=== PATIENT | female | born 1945 | race Caucasian/White ===

== ENCOUNTER 2017-08-24 17:31 | Outpatient (RCR) | payer MEDICARE, OTHER, SELFPAY | END 2017-08-31 23:59 | LOC: DC 17:31 | PROVIDERS: Family Provider Nurse Practitioner; PCP Nurse Practitioner; Visit Provider Nurse Practitioner Family | DX: E11.9 Type 2 diabetes mellitus without complications (principal); E66.9 Obesity, unspecified; Z68.43 Body mass index [BMI] 50.0-59.9, adult; M51.36 Other intervertebral disc degeneration, lumbar region; Z71.3 Dietary counseling and surveillance | CPT/HCPCS: G0109 ==

== ENCOUNTER 2017-10-17 07:43 | Day surgery (SDC) | payer MEDICARE, OTHER, SELFPAY ==
[2017-10-17 08:10] VITALS: BP 112/50; PULSE 72; RESP 16; TEMP 36.6; O2SAT 98; BMI 57.7
[2017-10-17 08:35] LABS: Bedside Glucose 102 mg/dL (70-110)
--- NOTE | 2017-10-17 09:35 | RAD_ITS ---
PROCEDURE: Right L3-S1 facet joint block. DATE OF EXAMINATION: October 17, 2017. INDICATION: Female, 72 years old. Chronic low back pain. FLUOROSCOPY TIME (if supplied): (0:14) minutes/seconds Intraoperative imaging provided for right L3-S1 facet joint block. RAD/L/S Spine Min 4 Views IMPRESSION: Imaging provided for right L3-S1 facet joint block. Electronically Signed: Toñito Castellanos MD at 11:32 EDT Tel [phone], Service support ,
[2017-10-17] MEDS: MethylPREDNISolone Acetate 80 MG/ML Vial (09:41)
[2017-10-17] MEDS: Bupivacaine 0.25% 30 ML Vial (09:42)
[2017-10-17 09:50] VITALS: BP 105/54; BP 112/50; PULSE 69; RESP 16; TEMP 36.8; O2SAT 92
[2017-10-17 09:55] VITALS: BP 112/50; BP 98/41; PULSE 67; RESP 16; O2SAT 98
[2017-10-17 10:00] VITALS: BP 112/50; BP 99/54; PULSE 65; RESP 16; O2SAT 98
[2017-10-17 10:05] VITALS: BP 112/50; BP 115/51; PULSE 66; RESP 16; TEMP 36.6; O2SAT 96
[2017-10-17 10:24] VITALS: BP 112/50
--- NOTE | 2017-10-17 10:41 | OP.PCM_ITS ---
Problem List (1) Degeneration of intervertebral disc of lumbosacral region Status: Chronic (2) Lumbar facet arthropathy Status: Chronic (3) Lumbosacral spondylosis Status: Chronic Report of Operation Date of Procedure: 10/17/17 Pre-Operative Diagnosis: Lumbosacral spondylosis, lumbosacral degenerative disc disease, lumbar facet arthropathy Post-Operative Diagnosis: Lumbosacral spondylosis, lumbosacral degenerative disc disease, lumbar facet arthropathy Surgery/Procedure Performed:: Right-sided lumbar facet steroid injection L3, L4 , L5, S1 Description of Surgical Findings:: PROCEDURE: Right-sided lumbar facet steroid injection L3, L4, L5, S1 PREOPERATIVE DIAGNOSIS: Lumbosacral spondylosis, lumbosacral degenerative disc disease, and lumbar facet arthropathy POSTOPERATIVE DIAGNOSIS: Lumbosacral spondylosis, lumbosacral degenerative disc disease, and lumbar facet arthropathy ANESTHESIA: MAC COMPLICATIONS: None BLOOD LOSS: Minimal PROCEDURE IN DETAIL: History and physical today was reviewed. Risks and benefits of the procedure were explained. The patient understood, agreed to our procedure, and informed consent was obtained. IV inserted per routine protocol. The patient was taken to the operating room, placed in a prone position with a pillow positioned underneath the abdomen. The right side of his lower back was prepped and draped in a sterile fashion using iodine x3. Under fluoroscopy guidance, on AP view, L3 through S1 vertebral bodies were visualized. Skin and subcutaneous tissues were anesthetized with approximately 5 mL of 1% lidocaine using a 25-gauge regular needle. Under direct visualization with fluoroscopy at approximately 25-degree angle, starting on the right L3, ending on the right S1, passing through the L4-L5 using a 22-gauge 3 1/2-inch spinal needle, the needle was advanced via the skin. The tip of the needle was maneuvered and directed towards the superior and medial gutter of the transverse process at the vicinity of the medial branch. Once the tip of the needle was in contact with the bone, the needle pulled approximately 2 mm off the bone. After negative aspiration of blood with CSF and confirmation of AP as well as oblique view, a total of 8 mL of preservative-free 0.25% Marcaine with 80 mg of Depo- Medrol was injection in divided doses between those 4 levels. The needles were then removed intact. The patient experienced no signs or symptoms intrathecal, intravascular injection. The patient experienced no paraesthesia. The procedure was completed without any apparent difficult, any complication. The patient appeared to tolerate well. ASSESSMENT AND PLAN: This is a 72-year-old female with lumbosacral spondylosis, lumbosacral degenerative disc disease and lumbar facet arthropathy, status post right-sided lumbar facet steroid injection L3 through S1. The patient will continue her current medications. The patient will follow in approximately 2 weeks for possible repeat of the procedure if indicated.
== END 2017-10-17 10:26 | disposition home or self-care (01) ==
LOC: SDC 07:44 → AC 07:49
PROVIDERS: Family Provider Nurse Practitioner; PCP Nurse Practitioner; Visit Provider Anesthesiology Pain Medicine
PROC: 3E0T3BZ Introduction of Anesthetic Agent into Peripheral Nerves and Plexi, Percutaneous Approach (ICD-10-PCS; CPT 64493; principal; 2017-10-17 10:00)
DX: M51.37 Other intervertebral disc degeneration, lumbosacral region (principal); M47.897 Other spondylosis, lumbosacral region; M46.86 Other specified inflammatory spondylopathies, lumbar region; I10 Essential (primary) hypertension; I50.9 Heart failure, unspecified; E78.00 Pure hypercholesterolemia, unspecified; E78.5 Hyperlipidemia, unspecified; E11.9 Type 2 diabetes mellitus without complications; Z79.84 Long term (current) use of oral hypoglycemic drugs; F32.9 Major depressive disorder, single episode, unspecified; E66.01 Morbid (severe) obesity due to excess calories; Z68.43 Body mass index [BMI] 50.0-59.9, adult; Z79.891 Long term (current) use of opiate analgesic; Z79.899 Other long term (current) drug therapy; Z86.711 Personal history of pulmonary embolism; Z85.3 Personal history of malignant neoplasm of breast
CPT/HCPCS: 64493; 64494; 64495; 64483; 72110; 82962; J7120

== ENCOUNTER → 2018-02-06 14:53 | Outpatient (CLI) | payer MEDICARE, OTHER, SELFPAY ==
[2018-02-06 17:37] LABS: Hematocrit 31.8 % (37-47); Hemoglobin 9.8 g/dl (12.0-15.0); Mean Corp Hgb Conc 30.8 g/gl (32-36); Mean Corpuscular Hgb 28.8 pg (27.0-32.0); Mean Corpuscular Volume 93.5 fL (81-99); Mean Platelet Vol. 9.2 fl (6.2-12.0); Platelet Count 103 K/mm3 (150-450); RBC Distribution Width CV 16.2 % (11.6-14.6); RBC Distribution Width SD 53.7 fl (35.1-43.9); White Blood Count 4.1 K/mm3 (4.4-11.0)
[2018-02-06 17:45] LABS: Scan Indicated on CBC? Y/N NO
[2018-02-06 17:54] LABS: ALB/GLOB Ratio 0.7 RATIO (0.9-2.4); AST(SGOT) 34 U/L (15-37); Alanine Aminotransfer ALT/SGPT 27 U/L (13-56); Albumin, Serum 3.2 g/dL (3.2-5.0); Alkaline Phosphatase 88 U/L (45-117); Anion Gap 10 (5-15); BUN 19 mg/dL (7-18); BUN/Creat Ratio 22.2 RATIO (10-20); Calcium,Total 9.3 mg/dL (8.5-10.1); Chloride 107 mmol/L (98-107); Creatinine, Serum 0.86 mg/dL (0.55-1.02); EST Glomerular Filtration Rate 69 mL/min (>60); Est Glom Filt Rate - Afr Amer 84 mL/min (>60); Globulin 4.4 g/dL (2.2-4.2); Glucose 65 mg/dL (74-106); Iron 46 ug/dL (50-170); Potassium 4.3 mmol/L (3.5-5.1); Protein, Total 7.6 g/dL (6.4-8.2); Sodium Level 145 mmol/L (136-145)
[2018-02-08 10:04] LABS: AFP, Tumor Marker 4.2 ng/mL (0.0-8.3)
== END ==
PROVIDERS: Family Provider Nurse Practitioner; PCP Nurse Practitioner; Visit Provider Internal Medicine Gastroenterology
DX: K74.60 Unspecified cirrhosis of liver (principal); D64.9 Anemia, unspecified
CPT/HCPCS: 36415; 80053; 82105; 83540; 85027

== ENCOUNTER 2018-03-20 08:41 | Day surgery (SDC) | payer MEDICARE, OTHER, SELFPAY ==
[2018-03-20 08:59] VITALS: BP 109/58; PULSE 65; RESP 16; TEMP 35.7; O2SAT 99; BMI 58.5
[2018-03-20 09:25] LABS: Bedside Glucose 92 mg/dL (70-110)
[2018-03-20] MEDS: Bupivacaine 0.25% 30 ML Vial (09:37)
[2018-03-20] MEDS: MethylPREDNISolone Acetate 80 MG/ML Vial (09:37)
[2018-03-20 09:45] VITALS: BP 109/58; BP 130/67; PULSE 61; RESP 20; TEMP 36.6; O2SAT 98
[2018-03-20 09:50] VITALS: BP 109/58; BP 94/44; PULSE 63; RESP 18; O2SAT 95
[2018-03-20 09:55] VITALS: BP 104/53; BP 109/58; PULSE 59; RESP 18; O2SAT 95
[2018-03-20 10:00] VITALS: BP 105/49; BP 109/58; PULSE 59; RESP 18; TEMP 36.8; O2SAT 95
[2018-03-20 10:10] VITALS: BP 109/58
--- NOTE | 2018-03-20 11:26 | PCM.OPRPT ---
Problem List (1) Degeneration of intervertebral disc of lumbosacral region Status: Chronic (2) Lumbar facet arthropathy Status: Chronic (3) Lumbosacral spondylosis Status: Chronic Report of Operation Date of Procedure: 03/20/18 Pre-Operative Diagnosis: Lumbosacral spondylosis, lumbosacral degenerative disc disease, lumbar facet arthropathy Post-Operative Diagnosis: Lumbosacral spondylosis, lumbosacral degenerative disc disease, lumbar facet arthropathy Surgery/Procedure Performed:: Left-sided lumbar facet steroid injection L3, L4, L5, S1 Description of Surgical Findings:: PROCEDURE: Left-sided lumbar facet steroid injection L3, L4, L5, S1 PREOPERATIVE DIAGNOSIS: Lumbosacral spondylosis, lumbosacral degenerative disc disease, lumbar facet arthropathy POSTOPERATIVE DIAGNOSIS: Lumbosacral spondylosis, lumbosacral degenerative disc disease, lumbar facet arthropathy ANESTHESIA: MAC COMPLICATIONS: None BLOOD LOSS: Minimal PROCEDURE IN DETAIL: History and physical today was reviewed. Risks and benefits of the procedure were explained. The patient understood, agreed to our procedure, and informed consent was obtained. IV inserted per routine protocol. The patient was taken to the operating room, placed in a prone position with a pillow positioned underneath the abdomen. The left side of her lower back was prepped and draped in a sterile fashion using iodine x3. Under fluoroscopy guidance, on AP view, L3 through S1 vertebral bodies were visualized. Skin and subcutaneous tissues were anesthetized with approximately 5 mL of 1% lidocaine using a 25-gauge regular needle. Under direct visualization with fluoroscopy at approximately 25-degree angle, starting on the left L3, ending on the left S1, passing through the L4-L5 using a 22-gauge 5-inch spinal needle, the needle was advanced via the skin. The tip of the needle was maneuvered and directed towards the superior and medial gutter of the transverse process at the vicinity of the medial branch. Once the tip of the needle was in contact with the bone, the needle pulled approximately 2 mm off the bone. After negative aspiration of blood with CSF and confirmation of AP as well as oblique view, a total of 8 mL of preservative-free 0.25% Marcaine with 80 mg of Depo-Medrol was injection in divided doses between those 4 levels. The needles were then removed intact. The patient experienced no signs or symptoms intrathecal, intravascular injection. The patient experienced no paraesthesia. The procedure was completed without any apparent difficult, any complication. The patient appeared to tolerate well. ASSESSMENT AND PLAN: This is a 64-year-old Female with Lumbosacral spondylosis, lumbosacral degenerative disc disease, lumbar facet arthropathy, status post left-sided lumbar facet steroid injection [id number] S1. The patient will continue his current medications. The patient will follow in approximately 2 weeks for possible repeat of the procedure if indicated.
== END 2018-03-20 10:25 | disposition home or self-care (01) ==
LOC: SDC 08:41 → AC 09:00
PROVIDERS: Family Provider Nurse Practitioner; PCP Nurse Practitioner; Visit Provider Anesthesiology Pain Medicine
PROC: 3E0T3BZ Introduction of Anesthetic Agent into Peripheral Nerves and Plexi, Percutaneous Approach (ICD-10-PCS; CPT 64493; principal; 2018-03-20 09:25)
DX: M47.27 Other spondylosis with radiculopathy, lumbosacral region (principal); M51.37 Other intervertebral disc degeneration, lumbosacral region; M46.96 Unspecified inflammatory spondylopathy, lumbar region; M51.36 Other intervertebral disc degeneration, lumbar region; M43.16 Spondylolisthesis, lumbar region; K21.9 Gastro-esophageal reflux disease without esophagitis; I10 Essential (primary) hypertension; M10.9 Gout, unspecified; E11.9 Type 2 diabetes mellitus without complications; E66.01 Morbid (severe) obesity due to excess calories; Z68.43 Body mass index [BMI] 50.0-59.9, adult; E78.00 Pure hypercholesterolemia, unspecified; F32.9 Major depressive disorder, single episode, unspecified; K74.0 Hepatic fibrosis; N28.1 Cyst of kidney, acquired; E06.9 Thyroiditis, unspecified; M06.9 Rheumatoid arthritis, unspecified; Z86.711 Personal history of pulmonary embolism; Z78.0 Asymptomatic menopausal state; Z79.84 Long term (current) use of oral hypoglycemic drugs; Z79.891 Long term (current) use of opiate analgesic; Z79.899 Other long term (current) drug therapy
CPT/HCPCS: 64493; 64494; 64495; 64483; 72100; 82962; J7120

== ENCOUNTER → 2018-04-19 15:34 | Outpatient (CLI) | payer MEDICARE, OTHER, SELFPAY ==
--- NOTE | 2018-04-19 15:39 | RAD_ITS ---
STUDY: X-RAY - PELVIS REASON FOR EXAM: Female, 72 years old. Inflammatory polyarthropathy. TECHNIQUE: One view of the pelvis was obtained. COMPARISON: None. FINDINGS: There is a non-specific bowel gas pattern. Normal visualized soft tissue structures. Normal bilateral iliac wings, sacroiliac joints and visualized sacrum. Normal visualized bilateral superior and inferior pubic rami. Normal pubic symphysis. Normal ischial tuberosities. Normal visualized right femoral head. Normal right acetabulum. Normal right hip joint. Normal visualized left femoral head. Normal left acetabulum. Normal left hip joint. RAD/Pelvis 1 or 2 Views IMPRESSION: No definite abnormality. Electronically Signed: David Gonzalez MD at 15:27 EDT , Service support ,
[2018-04-19 18:01] LABS: Absolute Lymphocyte Count 1.12 X10^3/ul (0.83-4.51); Absolute Neutrophil Count 2.2 X10^3/uL (2.0-7.7); Basophil# 0.03 X10^3/uL; Basophil% 0.8 % (0-1); Eosinophil# 0.24 X10^3/uL; Eosinophils% 6.3 % (0-5); Hematocrit 38.3 % (37-47); Hemoglobin 12.4 g/dl (12.0-15.0); Lymphocyte # 1.12 X10^3/ul (4.0); Lymphocyte % 29.2 % (19-41); Mean Corp Hgb Conc 32.4 g/gl (32-36); Mean Corpuscular Hgb 31.9 pg (27.0-32.0); Mean Corpuscular Volume 98.5 fL (81-99); Mean Platelet Vol. 9.3 fl (6.2-12.0); Monocyte# 0.24 X10^3/uL; Monocyte% 6.3 % (0-10); Neutrophil % 57.4 % (47-70); Platelet Count 94 K/mm3 (150-450); RBC Distribution Width CV 15.2 % (11.6-14.6); RBC Distribution Width SD 53.4 fl (35.1-43.9); Red Blood Count 3.89 M/mm3 (4.2-5.4); White Blood Count 3.8 K/mm3 (4.4-11.0)
[2018-04-19 18:03] LABS: POSITIVE COUNT NO; POSITIVE DIFFERENTIAL NO; POSITIVE MORPHOLOGY NO
[2018-04-19 18:26] LABS: ALB/GLOB Ratio 0.8 RATIO (0.9-2.4); AST(SGOT) 43 U/L (15-37); Alanine Aminotransfer ALT/SGPT 28 U/L (13-56); Albumin, Serum 3.2 g/dL (3.2-5.0); Alkaline Phosphatase 109 U/L (45-117); Anion Gap 11 (5-15); BUN 12 mg/dL (7-18); BUN/Creat Ratio 13.8 RATIO (10-20); CRP 3.33 mg/L (0.0-3.0); Calcium,Total 9.5 mg/dL (8.5-10.1); Chloride 104 mmol/L (98-107); Creatinine, Serum 0.87 mg/dL (0.55-1.02); EST Glomerular Filtration Rate 68 mL/min (>60); Est Glom Filt Rate - Afr Amer 82 mL/min (>60); Globulin 4.2 g/dL (2.2-4.2); Glucose 145 mg/dL (74-106); Potassium 3.7 mmol/L (3.5-5.1); Protein, Total 7.4 g/dL (6.4-8.2); Rheumatoid Factor < 10.0 IU/mL (<15); Sodium Level 139 mmol/L (136-145)
[2018-04-19 18:45] LABS: Erythrocyte Sedimentation Rate 46 mm/hr (0-30)
[2018-04-21 14:07] LABS: SJOGREN'S Anti-SS-A test < 0.2 AI (0.0-0.9); SJOGREN'S Anti-SS-B test < 0.2 AI (0.0-0.9)
[2018-04-24 11:08] LABS: ANTINUCLEAR ANTIBODIES DIRECT Negative (Negative)
[2018-04-26 14:11] LABS: CCP IgG Antibodies 11 units (0-19); HEPATITIS B SURFACE AG Negative (Negative); HLA B27 Negative (.); Hep B Surface Antibodies Non Reactive (.); Hep C Antibodies <0.1 s/co ratio (0.0-0.9)
== END ==
PROVIDERS: Family Provider Nurse Practitioner; PCP Nurse Practitioner; Visit Provider Internal Medicine Rheumatology
DX: M06.4 Inflammatory polyarthropathy (principal); M79.7 Fibromyalgia; M51.37 Other intervertebral disc degeneration, lumbosacral region; M21.40 Flat foot [pes planus] (acquired), unspecified foot; K21.9 Gastro-esophageal reflux disease without esophagitis; I10 Essential (primary) hypertension; E11.9 Type 2 diabetes mellitus without complications; F41.9 Anxiety disorder, unspecified; N39.46 Mixed incontinence; Z85.3 Personal history of malignant neoplasm of breast
CPT/HCPCS: 36415; 72170; 80053; 81374; 85025; 85652; 86038; 86140; 86200; 86235; 86431; 86706; 86803; 87340

== ENCOUNTER → 2018-07-04 12:03 | Outpatient (CLI) | payer MEDICARE, OTHER, SELFPAY ==
--- NOTE | 2018-07-04 12:10 | CT_ITS ---
STUDY: CT ABDOMEN WITH AND WITHOUT CONTRAST REASON FOR EXAM: Female, 72 years old. History of nonalcoholic cirrhosis. Fatty liver. History of right breast cancer with lumpectomy and radiation treatment. RADIATION DOSAGE (If Supplied By Facility): CTDIvol = ( 25.35 ) mGy, DLP = ( 2097.71 ) mGycm TECHNIQUE: Transaxial images were obtained pre and post I.V. administration of 100 ml of Isovue 300, and with oral contrast. Sagittal and coronal images were reconstructed. Individualized dose optimization techniques were used for this CT. COMPARISON: None. FINDINGS: Minimal increased markings at the lung bases worse on the right side suggestive of basilar atelectasis and/or scarring. Coronary artery calcification. Normal liver. There are surgical clips in the gallbladder fossa consistent with a prior cholecystectomy. Mild splenomegaly. Varicosities are seen in the region of the splenic hilum suggestive of a venous collateral circulation. The portal vein is patent. It is not distended. Normal pancreas. There is a small, circumscribed, smooth, low attenuation right adrenal mass, consistent with an adrenal adenoma. This measures 2.5 cm x 1.6 cm. Normal left adrenal gland. There is a 3.5 cm x 5 cm cyst in the medial inferior aspect of the right kidney. Normal left kidney. There is a small hiatal hernia. Normal small intestine. Normal colon. The appendix is visualized and appears normal. There is diffuse atherosclerotic calcification of the abdominal aorta, without a demonstrated aneurysm. Normal inferior vena cava. Normal retroperitoneum. Normal abdominal wall. Disc space narrowing and degeneration at the L4-L5 level. Grade 1 anterior listhesis of L4 on L5 without spondylolysis. CT/Abdomen W/WO IV Contrast IMPRESSION: Mild splenomegaly. There is evidence of varicosities in the splenic hilum. Electronically Signed: Toñito Castellanos MD at 10:39 EST Tel [phone], Service support ,
[2018-07-04] MEDS: DiphenhydrAMINE 50 MG/ML Syringe 25 MG IV (12:42)
[2018-07-04 12:48] VITALS: BP 123/41; PULSE 65; RESP 18; O2SAT 97; BMI 75.2
[2018-07-04 12:56] LABS: CREATININE FINGERSTICK 1.2 mg/dL (0.55-1.02)
== END ==
PROVIDERS: Family Provider Nurse Practitioner; PCP Nurse Practitioner; Referring Provider Internal Medicine Gastroenterology; Visit Provider Internal Medicine Gastroenterology
DX: K74.60 Unspecified cirrhosis of liver (principal)
CPT/HCPCS: 74170; Q9967; A4216

== ENCOUNTER → 2018-07-14 14:37 | Outpatient (CLI) | payer MEDICARE, OTHER, SELFPAY ==
[2018-07-04 12:48] VITALS: BMI 75.2
[2018-07-14 17:52] LABS: Hematocrit 38.9 % (37-47); Hemoglobin 12.3 g/dl (12.0-15.0); Mean Corp Hgb Conc 31.6 g/gl (32-36); Mean Corpuscular Hgb 32.1 pg (27.0-32.0); Mean Corpuscular Volume 101.6 fL (81-99); Mean Platelet Vol. 9.1 fl (6.2-12.0); Platelet Count 74 K/mm3 (150-450); RBC Distribution Width CV 13.7 % (11.6-14.6); RBC Distribution Width SD 51.3 fl (35.1-43.9); Red Blood Count 3.83 M/mm3 (4.2-5.4); White Blood Count 3.1 K/mm3 (4.4-11.0)
[2018-07-14 17:53] LABS: Scan Indicated on CBC? Y/N NO
[2018-07-14 18:01] LABS: ALB/GLOB Ratio 0.7 RATIO (0.9-2.4); AST(SGOT) 37 U/L (15-37); Alanine Aminotransfer ALT/SGPT 27 U/L (13-56); Alkaline Phosphatase 109 U/L (45-117); Anion Gap 8 (5-15); BUN 16 mg/dL (7-18); BUN/Creat Ratio 18.8 RATIO (10-20); Calcium,Total 9.3 mg/dL (8.5-10.1); Chloride 109 mmol/L (98-107); Creatinine, Serum 0.85 mg/dL (0.55-1.02); EST Glomerular Filtration Rate 70 mL/min (>60); Est Glom Filt Rate - Afr Amer 85 mL/min (>60); Ferritin 45 ng/mL (8-252); Globulin 4.1 g/dL (2.2-4.2); Glucose 115 mg/dL (74-106); Iron 98 ug/dL (50-170); Protein, Total 7.1 g/dL (6.4-8.2); Sodium Level 144 mmol/L (136-145)
[2018-07-14 18:04] LABS: International Normalized Ratio 1.1; Partial Thromboplast Time 30.4 Seconds (24.1-36.2); Prothrombin Time (Protime)PT. 14.2 SECONDS (11.7-14.9)
[2018-07-17 10:35] LABS: AFP, Tumor Marker 4.1 ng/mL (0.0-8.3)
--- OUTSIDE RECORDS SUMMARY | 2018-10-18 06:05 | XMS RPT_ITS | Continuity of Care Document ---
:1945 Author Organization [facility] Address [address] [place] [address] Phone Care Team Providers Name Role Phone Radha Sebastian CNP Unavailable Lucho Hernandez DO Unavailable Dr. Austin Rodgers Unavailable Annie Morales Unavailable Christy Carter MD Unavailable Kodi Walsh Unavailable Dr. [place] Unavailable Dr. Lauren Umana MD Unavailable Zeina Herzog MD Unavailable Dr. Austin Gonzalez MD Unavailable Yuri Handy MD Unavailable Verenice Jacobo Unavailable Unavailable Long MANSI, Junie Elkins Unavailable Unavailable Lucia Freire LPN Unavailable Unavailable MANSI Miramontes Unavailable Unavailable Delroy Mendieta Unavailable Unavailable Unavailable Unavailable Problems Name Dates Details Abortions/Miscarriages Comments: 3 Status: Active Allergic rhinitis (J30.9, 477.9) Comments: handout given Status: Active Anemia (D64.9, 285.9) Status: Active Anemia, iron deficiency (D50.9, 280.9) Status: Active Anxiety (F41.9, 300.00) Comments: stable Status: Active Arthritis (M19.90, 716.90) Comments: in past was taking diclophenic now with ulcer and H pylori, need to see if any other arthritis med may help, cannot take , tylenol, or nsaids or ASA per Scot Status: Active BMI 45.0-49.9, adult (Z68.42, V85.42) Status: Active BMI 50.0-59.9, adult (Z68.43, V85.43) Status: Active BMI 50.0-59.9, adult (Z68.43, V85.43) Status: Active BMI 50.0-59.9, adult (Z68.43, V85.43) Comments: discussed wt loss Status: Active Breast screening (Z12.39, V76.10) Status: Active Bronchitis (J40, 490) Status: Active Current nonsmoker (Renamed from Current non-smoker) (Z78.9, V49.89) Status: Active Debility (R53.81, 799.3) Comments: unable to move about easily, sees Thad but still with pain, going to see Dr. Hsu, CT 2014 neg, see if can get home health or PT Status: Active Deliveries (Parity) Comments: 3, Term Status: Active Diabetes mellitus type II, controlled, with no complications (E11.9, 250.00) Comments: pt with metformin right hga1c good. Victoza making her nauseated, she quit, on metformineye exam schedule 9-16 Status: Active Disability of walking (R26.2, 719.7) Status: Active Elevated alkaline phosphatase level (R74.8, 790.5) Comments: down some Status: Active GERD (gastroesophageal reflux disease) (K21.9, 530.81) Comments: HH. had EGD found Hpylori and treated Status: Active Gout (M10.9, 274.9) Comments: allopurinol quit working / uloric is too $$$ Status: Active Gout (M10.9, 274.9) Comments: stable Status: Active Gout, unspecified (M10.9, 274.9) Comments: stable no signs and symptoms Status: Active Hallucinations (R44.3, 780.1) Comments: ? combo of meds oxybutinin, Butrans patch and UTI Status: Active History of colon polyps (Z86.010, V12.72) Comments: 4-10, 3-16 polyp. has family history pluse polyps in her in past repeat in 5 years Status: Active Hypercholesteremia (E78.00, 272.0) Comments: reveiwed with patient recent tests and trig and ldl hig. not taking atorvastin,made constipated, prn on zetia Status: Active Hypertension (I10, 401.9) Status: Active Imbalance (R26.89, 781.2) Comments: ? from Butrans patch 10mg and combo of oxybutin and uti Status: Active Knee pain (M25.569, 719.46) Comments: sees pain specialist Thad for knee pain, sees Vic steen Status: Active Low back pain (M54.5, 724.2) Comments: stilhave pain okay if not lay down. able to fucntion okay Sees Dr. Sheets does not want shots, uses Diclofenac Status: Active Lupus (systemic lupus erythematosus) (M32.9, 710.0) 1997 Comments: saw dorothy in past no reoccurance. 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 think really need to be treated TINO with cpap Status: Active Nonsmoker (Z78.9, V49.89) Status: Active Nutritional counseling (Z71.3, V65.3) Status: Active Obstructive sleep apnea, adult (G47.33, 327.23) Comments: never got cpap again told her so important. will get back for this told her can cause heart failure Status: Active Other intervertebral disc degeneration, lumbar region (M51.36, 722.52) Comments: marked L5-S1 and facet arthritis. must loos weight. some ruslan yvette right leg. PT not help and worsen.sees Dr. walsh on celebrex Status: Active Pain, chronic (G89.29, 338.29) Comments: seeing Dr. Walsh pain management , and gabapentin and diclofenac,incont of urine,not of stool Status: Active Personal history of breast cancer (Z85.3, V10.3) Comments: and low platelet count Status: Active Pregnancies () Comments: 6 Status: Active Renal cyst (N28.1, 753.10) Comments: stable Status: Active Screening mammogram, encounter for (Z12.31, V76.12) Status: Active Sinusitis (J32.9, 473.9) Status: Active Sinusitis (J32.9, 473.9) Status: Active Sinusitis, chronic (J32.9, 473.9) Comments: get on and off use alavert D Status: Active SOB (shortness of breath) (R06.02, 786.05) Status: Active Splenomegaly (R16.1, 789.2) Comments: splenomegaly and thrombocytopenia secondary to hypersplenism and statosis/hepatitis Seen by [facility] [place] 09-13-17 Status: Active Urinary frequency (R35.0, 788.41) Status: Active Urinary incontinence in female (R32, 788.30) Comments: i past Dr. bar. Status: Active Urinary urgency (R39.15, 788.63) Status: Active Vitamin D deficiency (E55.9, 268.9) Comments: good Status: Active Medications Name Dates Details Allopurinol 100 MG Oral Tablet 1 Tablet bid for 0 days Quantity: 180 {Tablet} Refills: 3 Ordered:26-Feb-2018 Radha Sebastian CNP, CNP Citlaly Start : 26-Feb-2018 Active Allopurinol 100 MG Oral Tablet 1 Tablet bid for 0 days Quantity: 180 {Tablet} Refills: 3 Ordered:26-Feb-2018 Radha Sebastian CNP, CNP Citl[facility] Start : 26-Feb-2018 Active Butrans 5 MCG/HR Transdermal Patch Weekly 1 (one) Patch change one a week for 30 days Quantity: 4 {Patch} Refills: 3 Ordered:13-Mar-2018 Radha Sebastian CNP, CNP Citl[facility] Start : 13-Mar-2018 Active Gabapentin 300 MG Oral Capsule 1 (one) Capsule Capsule tid for 0 days Quantity: 90 {Capsule} Refills: 0 Ordered:19-Nov-2016 Jaz DARLING, Radha Dodge CNP, Radha Cao Start : 19-Nov-2016 Active HydroCHLOROthiazide 25 MG Oral Tablet 1 Tablet QD for 0 days Quantity: 90 {Tablet} Refills: 3 Ordered:17-Apr-2018 Jaz DARLING, Radha Dodge CNP, Radha Cao Start : 17-Apr-2018 Active HydroCHLOROthiazide 25 MG Oral Tablet 1 Tablet QD for 0 days Quantity: 90 {Tablet} Refills: 0 Ordered:17-Apr-2018 Jaz DARLING, Radha Dodge CNP, Radha Cao Start : 17-Apr-2018 Active Iron (Ferrous Sulfate) 142 (45 Fe) MG Oral Tablet Extended Release 1 (one) Tablet Tablet bid for 0 days Quantity: 60 {Tablet} Refills: 0 Ordered:13-Mar-2018 Verenice Jacobo Start : 20-Feb-2018 Active Lisinopril 20 MG Oral Tablet 1 Tablet QD for 0 days Quantity: 90 {Tablet} Refills: 3 Ordered:27-Feb-2018 Jaz DARLING, Radha Dodge CNP, Radha Cao Start : 27-Feb-2018 Active Lisinopril 20 MG Oral Tablet 1 Tablet QD for 0 days Quantity: 90 {Tablet} Refills: 3 Ordered:27-Feb-2018 Jaz DARLING, Radha Dodge CNP, Radha Cao Start : 27-Feb-2018 Active Oxybutynin Chloride ER 10 MG Oral Tablet Extended Release 24 Hour 1 (one) Tablet Tablet qhs for 0 days Quantity: 30 {Tablet} Refills: 3 Ordered:26-Apr-2018 Verenice Jacobo Start : 13-Mar-2018 Active Venlafaxine HCl ER 75 MG Oral Capsule Extended Release 24 Hour 1 Capsule ER 24HR qd for 0 days Quantity: 90 {Capsule} Refills: 3 Ordered:12-May-2018 Jaz DARLING, Radha Dodge CNP, Radha Cao Start : 12-May-2018 Active Venlafaxine HCl ER 75 MG Oral Capsule Extended Release 24 Hour 1 Capsule ER 24HR qd for 0 days Quantity: 90 {Capsule} Refills: 3 Ordered:12-May-2018 Jaz DARLING, Radha Dodge CNP, Radha Cao Start : 12-May-2018 Active ARIMIDEX, 1MG (Oral Tablet) QD for 0 days Refills: 0 Ordered:27-Dec-2013 DAVID Corona End : 27-Dec-2013 Inactive ATIVAN, 0.5MG (Oral Tablet) Tablet QID/PRN for 0 days Quantity: 20 {Tablet} Refills: 0 Ordered:27-Dec-2013 DAVID Corona Start : 25-Sep-2013 End : 27-Dec-2013 Inactive Atorvastatin Calcium 80 MG Oral Tablet 1 Tablet daily for 0 days Quantity: 90 {Tablet} Refills: 3 Ordered:20-Feb-2018 Slarb SAND POLISHER, Lucia Start : 19-Nov-2016 End : 20-Feb-2018 Inactive Benzonatate 200 MG Oral Capsule 1 (one) Capsule PO TID PRN for 0 days Quantity: 21 {Capsule} Refills: 0 Ordered:20-Feb-2018 Slarb SAND POLISHER, Lucia Start : 22-Dec-2017 End : 20-Feb-2018 Inactive BIAXIN XL PAC, 500MG (Oral Tablet Extended Release 24 Hour) 2 (two) Tablet ER 24HR daily for 10 days Quantity: 20 {Tablet_ER_24HR} Refills: 0 Ordered:22-Sep-2012 Jaz DARLING, Radha Dodge CNP, Radha Cao Start : 22-Sep-2012 End : 02-Oct-2012 Inactive CIPRO, 500MG (Oral Tablet) 1 Tablet bid for 10 days Quantity: 20 {Tablet} Refills: 0 Ordered:07-Mar-2012 DAVID Corona Start : 07-Mar-2012 End : 17-Mar-2012 Inactive CRESTOR, 20MG (Oral Tablet) 1 Tablet daily for 0 days Quantity: 30 {Tablet} Refills: 6 Ordered:26-Mar-2013 Zeina Herzog MD Start : 26-Mar-2013 End : 26-Mar-2013 Inactive Comments:constipation CYCLOBENZAPRINE HCL, 10MG (Oral Tablet) 1 Tablet tid for 0 days Quantity: 90 {Tablet} Refills: 0 Ordered:27-Dec-2013 DAVID Corona Start : 25-Sep-2013 End : 27-Dec-2013 Inactive Comments:n[age] DICLOFENAC POTASSIUM, 50MG (Oral Tablet) qd (50 MG) Inactive Comments:Dr. Sheets Doxycycline Hyclate 100 MG Oral Capsule 1 (one) Capsule bid for 7 days Quantity: 14 {Capsule} Refills: 0 Ordered:08-Nov-2017 Jaz DARLING, Radha Dodge CNP, Citlaly Start : 08-Nov-2017 End : 15-Nov-2017 Inactive EPIPEN 2-ZACKERY, 0.3MG/0.3ML (Injection Solution Auto-injector) 1 Device uad for 0 days Quantity: 1 {Cartridge} Refills: 1 Ordered:27-Oct-2015 DAVID Corona Start : 27-Dec-2013 End : 27-Oct-2015 Inactive EPIPEN, 0.3MG/0.3ML (Injection Device) 1 Device uad for 0 days Quantity: 1 {Device} Refills: 0 Ordered:11-May-2010 DAVID Corona Start : 12-Feb-2010 End : 11-May-2010 Inactive K-DUR, 20MEQ (Oral Tablet Extended Release) 1 Tablet ER qd for 0 days Quantity: 30 {Tablet_ER} Refills: 3 Ordered:12-Feb-2010 DAVID Corona Start : 15-Jul-2009 Inactive Lasix 20 MG Oral Tablet 1 (one) Tablet qd for 0 days Quantity: 90 {Tablet} Refills: 3 Ordered:13-Mar-2018 Jaz DARLING, Radha Dodge CNP, Citlaly Start : 27-Feb-2018 End : 13-Mar-2018 Inactive LEVAQUIN, 500MG (Oral Tablet) 1 Tablet daily for 7 days Quantity: 7 {Tablet} Refills: 0 Ordered:22-Sep-2012 Jaz DARLING, Radha Dodge CNP, Citlaly Start : 18-Sep-2012 End : 22-Sep-2012 Inactive LIDODERM, 5% (External Patch) 1 Patch 0n 12 hrs off 12 hrs for 0 days Quantity: 15 {Patch} Refills: 0 Ordered:24-Aug-2012 DAVID Corona Start : 14-Feb-2012 End : 24-Aug-2012 Inactive LIPOFEN, 50MG (Oral Capsule) Capsule daily for 0 days Quantity: 90 {Capsule} Refills: 3 Ordered:12-Feb-2010 DAVID Corona Start : 12-Feb-2010 Inactive Comments:said made me feel weird so I stopped it Macrobid 100 MG Oral Capsule 1 (one) Capsule bid for 7 days Quantity: 14 {Capsule} Refills: 0 Ordered:14-Apr-2018 Jaz DARLING, Radha Dodge CNP, Citlaly Start : 14-Apr-2018 End : 21-Apr-2018 Inactive MELOXICAM, 15MG (Oral Tablet) 1 Tablet daily for 0 days Quantity: 30 {Tablet} Refills: 0 Ordered:24-Aug-2012 DAVID Corona Start : 14-Feb-2012 End : 24-Aug-2012 Inactive MELOXICAM, 15MG (Oral Tablet) 1 (one) Tablet Tablet daily for 0 days Quantity: 30 {Tablet} Refills: 3 Ordered:12-May-2015 DAVID Corona Start : 23-Jul-2014 End : 12-May-2015 Inactive Comments:take with food Oxybutynin Chloride ER 10 MG Oral Tablet Extended Release 24 Hour 1 (one) Tablet qhs for 0 days Quantity: 30 {Tablet} Refills: 3 Ordered:14-Apr-2018 Jaz DARLING, Radha Smiththuy DARLING, Citlaly Start : 13-Mar-2018 End : 14-Apr-2018 Inactive PredniSONE 10 MG Oral Tablet 1 Tablet TAD for 9 days Quantity: 18 {Tablet} Refills: 0 Ordered:22-Dec-2017 Lissa Stevenson Start : 22-Dec-2017 End : 31-Dec-2017 Inactive Comments:3 tablets daily x 3 days,2 tablets daily x 3 days,1 tablet daily x 3 days ProAir HFA 108 (90 Base) MCG/ACT Inhalation Aerosol Solution 1-2 Puff Every 4-6 hours PRN for 0 days Quantity: 1 {Inhaler} Refills: 0 Ordered:20-Feb-2018 Lucia Freire LPN Start : 22-Dec-2017 End : 20-Feb-2018 Inactive PROBENECID, 500MG (Oral Tablet) 1/2 Tablet bid for 7 days Quantity: 7 {Tablet} Refills: 0 Ordered:27-May-2008 Fabyrickthuy DARLING, Radha Dodge LISSET, Radha Cao Start : 27-May-2008 End : 10-Jun-2008 Inactive SIMVASTATIN, 40MG (Oral Tablet) 1 Tablet QD for 0 days Quantity: 30 {Tablet} Refills: 3 Ordered:11-May-2010 DAVID Corona Start : 16-Oct-2009 End : 11-May-2010 Inactive TYLENOL, 325MG (Oral Tablet) 1 qid/prn for 0 days Refills: 0 Ordered:18-Feb-2012 DAVID Corona End : 18-Feb-2012 Inactive Zithromax Z-Zackery 250 MG Oral Tablet 1 (one) Tablet TAD for 0 days Quantity: 1 {Package} Refills: 0 Ordered:20-Feb-2018 Lucia Freire LPN Start : 22-Dec-2017 End : 20-Feb-2018 Inactive ZOSTAVAX, 37987UWB/0.65ML (Subcutaneous Solution Reconstituted) 1 (one) For Solution one time only for 0 days Quantity: 1 {Syringe} Refills: 0 Ordered:27-Dec-2013 DAVID Corona Start : 25-Sep-2013 End : 27-Dec-2013 Inactive ADVIL, 200MG (Oral Tablet) Unsure BID when needed - 20-30 a month for 0 days Refills: 0 Ordered:20-Oct-2006 DAVID Corona End : 20-Oct-2006 Discontinued CeleBREX 200 MG Oral Capsule 1 (one) Capsule qd for 0 days Quantity: 30 {Capsule} Refills: 0 Ordered:30-Apr-2016 Slarb Lucia NAZARIO Start : 27-Oct-2015 End : 30-Apr-2016 Discontinued DAYQUIL (PO Liquid) uad 7-14 per month for 0 days Refills: 0 Ordered:27-Jul-2007 DAVID Corona End : 27-Jul-2007 Discontinued EPIPEN, 0.3 MG/0.3ML(1:1000) (Intramuscular Device) Device uad for 0 days Quantity: 1 {Device} Refills: 1 Ordered:25-Mar-2009 Mast Alejandra WILLOUGHBY Start : 25-Mar-2009 End : 19-Nov-2011 Discontinued Comments:This order discontinued per [employer]. MetFORMIN HCl ER 500 MG Oral Tablet Extended Release 24 Hour 1 (one) Tablet ER 24HR bid for 0 days Quantity: 180 {Tablet} Refills: 3 Ordered:26-Apr-2018 Verenice Jacobo Start : 27-Feb-2018 End : 26-Apr-2018 Discontinued Comments:take with two largest meals of the day PRAVASTATIN SODIUM, 80MG (Oral Tablet) 1 Tablet daily for 0 days Quantity: 90 {Tablet} Refills: 3 Ordered:25-Jun-2013 Zeina Herzog MD Start : 25-Jun-2013 End : 25-Jun-2013 Discontinued TRICOR, 48MG (Oral Tablet) Tablet QD for 0 days Refills: 0 Ordered:29-Aug-2008 Zeina Herzog MD Start : 23-May-2008 End : 29-Aug-2008 Discontinued VENLAFAXINE HCL, 37.5MG (PO Cap CR) 1 qd for 0 days Refills: 0 Ordered:11-May-2010 DAVID Corona End : 11-May-2010 Discontinued Comments:This order discontinued per [employer]. Victoza 18 MG/3ML Subcutaneous Solution Pen-injector 1 (one) Soln Pen-inj Soln Pen-inj 0.6 mg SC daily for 1 weekt hen 1.2 mg SC daily for 0 days Quantity: 1 {Each} Refills: 6 Ordered:30-Apr-2016 Tani NAZARIOLucia Start : 15-Jul-2015 End : 30-Apr-2016 Discontinued VYTORIN, 10-20MG (Oral Tablet) 1 (one) Tablet QD for 0 days Quantity: 30 {Tablet} Refills: 6 Ordered:20-Nov-2007 Zeina Herzog MD Start : 20-Nov-2007 End : 20-Nov-2007 Discontinued Comments:disregard Zetia 10 MG Oral Tablet 1 (one) Tablet daily for 0 days Quantity: 90 {Tablet} Refills: 3 Ordered:26-Apr-2018 Verenice Jacobo Start : 27-Feb-2018 End : 26-Apr-2018 Discontinued Zetia 10 MG Oral Tablet 1 (one) Tablet daily for 90 days Quantity: 90 {Tablet} Refills: 3 Ordered:26-Apr-2018 Verenice Jacobo Start : 27-Feb-2018 End : 26-Apr-2018 Discontinued ZOCOR, 40MG (Oral Tablet) Tablet QD for 0 days Quantity: 30 {Tablet} Refills: 0 Ordered:20-Sep-2006 DAVID Corona Start : 20-Sep-2006 End : 20-Oct-2006 Discontinued Comments:Urinary retention Allergies and Adverse Reactions Name Dates Details clindamycin (Allergy) Status: Active Iodinated Contrast (Allergy) Status: Active Penicillins (Allergy) Status: Active shellfish (Allergy) Status: Active Sulfa Drugs (Allergy) Status: Active Comments: kidney Past Medical History Name Dates Details Abdominal pain, RLQ (R10.31, 789.03) Status: Inactive as of 27-Jun-2017 Abnormal blood findings (R79.9, 790.99) Comments: and family ho pancreatic ca Status: Inactive as of 12-May-2015 Abnormal laboratory test (R89.9, 796.4) Status: Inactive as of 27-Oct-2015 Acute sinusitis, unspecified (J01.90, 461.9) Status: Inactive as of 26-Mar-2013 ALLERGIC RHINITIS DUE TO OTHER ALLERGEN (J30.89, 477.8) Status: Inactive as of 25-Jun-2013 Anaphylactic shock due to serum, not elsewhere classified (999.4) 23-May-2012 Comments: reveiwed with patient ER report on steroid discussed what to avoid. not want epi pen, avoid it. Status: Inactive as of 23-May-2012 BMI 50.0-59.9, adult (Z68.43, V85.43) Comments: discussed wt loss Status: Inactive as of 27-Jun-2017 BMI 60.0-69.9, adult (Z68.44, V85.44) Comments: talk bout bariatic surgery but pt refuse. see above Status: Inactive as of 27-Oct-2015 breast cancer 174.9 (Renamed from Malignant neoplasm of breast (female), unspecified) (174.9) Comments: grace/[facility]---current XRT, chemoright lumpectomy. no signs of ir. Status: Inactive as of 18-Feb-2012 Bronchitis (J40, 490) Status: Inactive as of 12-Feb-2010 Cat bite, initial encounter (W55.01XA, 879.8) Status: Inactive as of 27-Jun-2017 Cataract (H26.9, 366.9) Status: Inactive as of 12-May-2015 Cellulitis of forearm (L03.119, 682.3) Status: Inactive as of 27-Jun-2017 Chest pain (R07.9, 786.59) 23-May-2012 Comments: pt think HH--similiar. not think need stress unless worsen Status: Resolved as of 23-May-2012 Chest tightness (R07.89, 786.59) Status: Resolved as of 16-Mar-2018 Constipation (K59.00, 564.00) Comments: having issue right now. use mom to help go ten use stool softner daily. Status: Inactive as of 27-Oct-2015 Cough (R05, 786.2) 23-May-2012 Status: Inactive as of 23-May-2012 Cough (R05, 786.2) Status: Resolved as of 16-Mar-2018 Cyst, kidney, acquired (N28.1, 593.2) Status: Inactive as of 12-May-2015 Dorsalgia, unspecified (M54.9, 724.5) Status: Inactive as of 23-May-2012 Dysuria (R30.0, 788.1) Status: Inactive as of 24-Aug-2012 Encounter for Medicare annual wellness exam (Z00.00, V70.0) Comments: -. reveiwed with patient all questions. mammo and exam through [facility]. colonscopy 2008. give advanced directive information. she did not do vaccine shingles wtih SLE. Status: Inactive as of 12-May-2015 Hair loss (L65.9, 704.00) Status: Inactive as of 12-May-2015 Heart murmur (R01.1, 785.2) Status: Inactive as of 27-Dec-2013 Hip pain (M25.559, 719.45) Comments: will xray to PT must loose weight ? back or hip Status: Inactive as of 27-Dec-2013 Hypercalcemia (E83.52, 275.42) Comments: recheck good arturo Status: Resolved as of 12-May-2015 Impaired fasting glucose (R73.01, 790.21) Comments: prediabetes. Status: Inactive as of 27-Oct-2015 Limb pain (M79.609, 729.5) Comments: thigh getting better after fal think pulled muscle will stretch heat. if not better in few weeks more than PT. not think DVT. 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 Jun whitman Status: Inactive as of 23-May-2012 Nodule of parotid gland (K11.8, 527.8) Comments: was infection on CT. see ENt and better Status: Inactive as of 27-Dec-2013 Peptic ulcer disease (K27.9, 533.90) Status: Inactive as of 23-May-2012 Persistent headaches (R51, 784.0) Comments: new issue today. think muscular and from neck. quick sharp pains. gave neck exercises. scalp massage. Status: Inactive as of 12-May-2015 Pulmonary embolism (I26.99, 415.19) Comments: 30 yrs ago, after [facility] but very concerned with TKA...i told her i would do a filter. Status: Inactive as of 18-Feb-2012 Sciatica of right side (M54.31, 724.3) Status: Inactive as of 12-May-2015 Septic Shock 11-May-2010 Status: Inactive as of 23-May-2012 shellfish allergy Status: Inactive as of 05-Feb-2009 Special screening for malignant neoplasms of colon (V76.51) Status: Inactive as of 24-Aug-2012 Unspecified Diagnosis Status: Inactive as of 26-Mar-2013 Unspecified Diagnosis Status: Inactive as of 16-Oct-2009 Unspecified visual disturbance (H53.9, 368.9) Status: Inactive as of 23-May-2012 Vertigo (R42, 780.4) Comments: sound like BPPV handout given but with headaches check imaging. Status: Inactive as of 12-May-2015 Well woman exam (Z01.419, V72.31) Status: Inactive as of 27-Jun-2017 Procedures Procedure Dates Details appendectomy Completed Comments: 28 yo Cataract Extraction-Bilateral Completed cholecystectomy Completed 1996 Colonoscopy, Screening Completed Comments: 10-13-15 Dr. Ellison small adenoma rpt. 5 years TAHBSO Completed Comments: 28 yo tubal ligation Completed Comments: 24 yo Date Value Details 19-Apr-2018 Pelvis 1 or 2 Views Result: Comments: See Note; NOTES: [facility] Imaging Services [address] [place] [address] Pelvis 1 or 2 Views MR#: [id number] Acct: [id number] Name: FRANCE LEE Rep #: [id number] : 1945 F 72 From: David Gonzalez MD PCP: Radha Sebastian NP Status: REG CLI Study: Pelvis 1 or 2 Views Date of Exam: 04/19/18 Exam# [id number] Ordering Dr: Annie Morales MD STUDY: X-RAY - P JEFE REASON FOR EXAM: Female, 72 years old. Inflammatory polyarthropathy. TECHNIQUE: One view of the pelvis was obtained. COMPARISON: None. FINDINGS: There is a non-specific bowel gas pattern. Normal visualized soft tissue structures. Normal bilateral iliac wings, sacroiliac joints and visualized sacrum. Normal visualized bilateral superior and inferior pubic rami. Normal pubic symphysis. Normal ischial tuberosities. Normal visualized right femoral head. Normal right acetabulum. Normal right hip joint. Normal visualized left femoral head. Normal left aceta bulum. Normal left hip joint. 0109 RAD/Pelvis 1 or 2 Views IMPRESSION: No definite abnormality. Electronically Signed: David Gonzalez MD 0 at 15:27 EDT , Service support , CC: Radha Sebastian NP; Annie Morales MD Tread Cutter: Signed 20-Mar-2018 Operative Report Result: Comments: See Note; NOTES: [facility] Medical Records Department [facility] [place] [address] Operative Report 03/20/18 1126 MR#: [id number] Acct: [id number] Name: NUVIA LEE Rep #: [id number] : 1945 72 From: Yuri Walsh MD PCP: Radha Sebastian NP Status: DEP [facility] Y Location: [facility] Problem List (1) Degeneration of intervertebral disc of lumbosacral region Status: Chronic (2) Lumbar facet arthropathy Status: Chronic (3) Lumbosacral spondylosis Status: Chronic Report of Operation Date of Procedure: 03/20/18 Pre-Operative Diagnosis: Lumbosacral spondylosis, lum bosacral degenerative disc disease, lumbar facet arthropathy Post-Operative Diagnosis: Lumbosacral spondylosis, lumbosacral degenerative disc disease, lumbar facet arthropathy Surgery/Procedure Performe d:: Left-sided lumbar facet steroid injection L3, L4, L5, S1 Description of Surgical Findings:: PROCEDURE: Left-sided lumbar facet steroid injection L3, L4, L5, S1 PREOPERATIVE DIAGNOSIS: Lumbosacral spondylosis, lumbosacral degenerative disc disease, lumbar facet arthropathy POSTOPERATIVE DIAGNOSIS: Lumbosacral spondylosis, lumbosacral degenerative disc disease, lumbar facet arthropathy ANESTHESI A: MAC COMPLICATIONS: None BLOOD LOSS: Minimal PROCEDURE IN DETAIL: History and physical today was reviewed. Risks and benefits of the procedure were explained. The patient understood, agreed to our procedure, and informed consent was obtained. IV inserted per routine protocol. The patient was taken to the operating room, placed in a prone position with a pillow positioned underneath the abdomen. The left side of her lower back was prepped and draped in a sterile fashion using iodine x3. Under fluoroscopy guidance, on AP view, L3 through S1 vertebral bodies were visualized. Skin and subcutaneous tissues were anesthetized with approximately 5 mL of 1% lidocaine using a 25- gauge regular needle. Under direct visualization with fluoroscopy at approximately 25-degree angle, starting on the left L3, ending on the left S1, passing through the L4-L5 using a 22-gauge 5-inch spinal needle, the needle was advanced via the skin. The tip of the needle was maneuvered and directed towards the superior and medial gutter of the transverse process at the vicinity of the medial branch. Once the tip of the needle was in contact with the bone, the needle pulled approximately 2 mm off the bone. After negative a spiration of blood with CSF and confirmation of AP as well as oblique view, a total of 8 mL of preservative-free 0.25% Marcaine with 80 mg of Depo-Medrol was injection in divided doses between those 4 l evels. The needles were then removed intact. The patient experienced no signs or symptoms intrathecal, intravascular injection. The patient experienced no paraesthesia. The procedure was completed witho ut any apparent difficult, any complication. The patient appeared to tolerate well. ASSESSMENT AND PLAN: This is a 64-year-old Female with Lumbosacral spondylosis, lumbosacral degenerative disc diseas e, lumbar facet arthropathy, status post left-sided lumbar facet steroid injection [id number] S1. The patient will continue his current medications. The patient will follow in approximately 2 weeks for p ossible repeat of the procedure if indicated. 03/20/18 1129 <Electronically signed by Yuri Walsh MD> Date Yuri Walsh MD CC: Radha Sebastian NP; Yuri Walsh Signed 19-Mar-2018 Lumbar Spine 2 or 3 Views Result: Comments: See Note; NOTES: [facility] Imaging Services [address] [place] [address] Lumbar Spine 2 or 3 Views MR#: [id number] Acct: [id number] Name: FRANCE LEE Rep #: : 1945 F 72 From: Toñito Castellanos MD PCP: Radha Sebastian NP Status: [facility] Study: Lumbar Spine 2 or 3 Views Date of Exam: 03/20/18 Exam# [id number] Ordering Dr: Yuri Walsh MD P ROCEDURE: Left L3-S1 facet joint block. DATE OF EXAMINATION: March 20, 2018. INDICATION: Female, 72 years old. Chronic low back pain. FLUOROSCOPY TIME (if supplied): (0:23) minutes/seconds Intraope rative fluoroscopic services were provided for left L3-S1 facet joint block. RAD/Lumbar Spine 2 or 3 Views IMPRESSION: Fluoroscopic services pro vided for left L3-S1 facet joint block. Electronically Signed: Toñito Castellanos MD at 9:06 EDT Tel [phone], Service support , CC: Radha Sebastian NP; Yuri Walsh Tread Cutter: Signed 17-Oct-2017 Operative Report Result: Comments: See Note; NOTES: [facility] Medical Records Department [address] [address] Operative Report 10/17/17 1040 MR#: [id number] Acct: [id number] Name: NUVIA LEE Rep #: [id number] : 1945 72 From: Yuri Walsh MD PCP: Radha Sebastian NP Status: DEP [facility] Y Location: [facility] Problem List (1) Degeneration of intervertebral disc of lumbosacral region Status: Chronic (2) Lumbar facet arthropathy Status: Chronic (3) Lumbosacral spondylosis Status: Chronic Report of Operation Date of Procedure: 10/17/17 Pre-Operative Diagnosis: Lumbosacral spondylosis, lum bosacral degenerative disc disease, lumbar facet arthropathy Post-Operative Diagnosis: Lumbosacral spondylosis, lumbosacral degenerative disc disease, lumbar facet arthropathy Surgery/Procedure Performe d:: Right-sided lumbar facet steroid injection L3, L4, L5, S1 Description of Surgical Findings:: PROCEDURE: Right-sided lumbar facet steroid injection L3, L4, L5, S1 PREOPERATIVE DIAGNOSIS: Lumbosacra l spondylosis, lumbosacral degenerative disc disease, and lumbar facet arthropathy POSTOPERATIVE DIAGNOSIS: Lumbosacral spondylosis, lumbosacral degenerative disc disease, and lumbar facet arthropathy ANESTHESIA: MAC COMPLICATIONS: None BLOOD LOSS: Minimal PROCEDURE IN DETAIL: History and physical today was reviewed. Risks and benefits of the procedure were explained. The patient understood, agre ed to our procedure, and informed consent was obtained. IV inserted per routine protocol. The patient was taken to the operating room, placed in a prone position with a pillow positioned underneath the abdomen. The right side of his lower back was prepped and draped in a sterile fashion using iodine x3. Under fluoroscopy guidance, on AP view, L3 through S1 vertebral bodies were visualized. Skin and graves bcutaneous tissues were anesthetized with approximately 5 mL of 1% lidocaine using a 25-gauge regular needle. Under direct visualization with fluoroscopy at approximately 25-degree angle, starting on th e right L3, ending on the right S1, passing through the L4-L5 using a 22-gauge 3 1/2-inch spinal needle, the needle was advanced via the skin. The tip of the needle was maneuvered and directed towards t he superior and medial gutter of the transverse process at the vicinity of the medial branch. Once the tip of the needle was in contact with the bone, the needle pulled approximately 2 mm off the bone. After negative aspiration of blood with CSF and confirmation of AP as well as oblique view, a total of 8 mL of preservative-free 0.25% Marcaine with 80 mg of Depo-Medrol was injection in divided doses b etween those 4 levels. The needles were then removed intact. The patient experienced no signs or symptoms intrathecal, intravascular injection. The patient experienced no paraesthesia. The procedure was completed without any apparent difficult, any complication. The patient appeared to tolerate well. ASSESSMENT AND PLAN: This is a 72-year-old female with lumbosacral spondylosis, lumbosacral degenerat jose disc disease and lumbar facet arthropathy, status post right-sided lumbar facet steroid injection L3 through S1. The patient will continue her current medications. [facility] for possible repeat of the procedure if indicated. 10/17/17 1041 <Electronically signed by Yuri Walsh MD> Date Yuri Walsh MD CC: Radha Sebastian NP; Yuri Walsh Signed 17-Oct-2017 L/S Spine Min 4 Views Result: Comments: See Note; NOTES: [facility] Imaging Services [address] [place] [address] L/S Spine Min 4 Views MR#: [id number] Acct: [id number] Name: FRANCE LEE Rep #: [id number] : 1945 F 72 From: Toñito Castellanos MD PCP: Radha Sebastian NP Status: [facility] Study: L/S Spine Min 4 Views Date of Exam: 10/17/17 Exam# [id number] Ordering Dr: Yuri Walsh MD PROCEDURE : Right L3-S1 facet joint block. DATE OF EXAMINATION: October 17, 2017. INDICATION: Female, 72 years old. Chronic low back pain. FLUOROSCOPY TIME (if supplied): (0:14) minutes/seconds Intraoperative i maging provided for right L3-S1 facet joint block. RAD/L/S Spine Min 4 Views IMPRESSION: Imaging provided for right L3-S1 facet joint block. El ectronically Signed: Toñito Castellanos MD at 11:32 EDT Tel [phone], Service support , CC: Radha Sebastian NP; Yuri Walsh Tread Cutter: Signed 04-Jul-2017 Operative Report Result: Comments: See Note; NOTES: [facility] Medical Records Department [address] [place] [address] Operative Report 07/04/17 1213 MR#: [id number] Acct: [id number] Name: NUVIA LEE Rep #: [id number] : 1945 71 From: Yuri Walsh MD PCP: Radha Sebastian NP Status: [facility] Y Location: [place] [address] Problem List (1) Lumbosacral spondylosis Status: Chronic (2) Degenerat ion of intervertebral disc of lumbosacral region Status: Chronic (3) Lumbar facet arthropathy Status: Chronic Report of Operation Date of Procedure: 07/04/17 Pre-Operative Diagnosis: Lumbosacral spond ylosis, lumbosacral degenerative disc disease, lumbar facet arthropathy Post-Operative Diagnosis: Lumbosacral spondylosis, lumbosacral degenerative disc disease, lumbar facet arthropathy Surgery/Procedu re Performed:: Left sided radiofrequency ablation of the medial branch L3, L4, L5, S1 Description of Surgical Findings:: PROCEDURE: Left-sided radiofrequency ablation of the medial branch L3, L4, L5, S 1 PREOPERATIVE DIAGNOSES: Lumbosacral spondylosis, lumbosacral degenerative disc disease, lumbar facet arthropathy POSTOPERATIVE DIAGNOSES: Lumbosacral spondylosis, lumbosacral degenerative disc disea se, lumbar facet arthropathy ANESTHESIA: MAC COMPLICATIONS: None BLOOD LOSS: Minimal PROCEDURE IN DETAIL: History and physical today was reviewed. Risks and benefits of procedure explained. The tari ent understood, agreed to the procedure and informed consent was obtained. IV inserted per routine protocol. The patient was taken to the operating room, placed in the prone position with a pillow posit ioned underneath the abdomen. The right side of the lower back was prepped and draped in a sterile fashion using iodine x 3. Under fluoroscopy guidance, on an oblique view, the L3 through S1 vertebral b odies were visualized. The skin and subcutaneous tissue was anesthetized with approximately 10 mL of 1% lidocaine using a 25-gauge regular needle. Under direct visualization with fluoroscopy at approxim ately 25-degree angle, starting on the left L3, ending on the left S1 passing through the L4-L5 using a 20-gauge 15 cm with a 10 mm curved active tip radiofrequency ablation needle the needle passed thr ough the skin. The tip of the needle was maneuvered and directed towards the superior and medial gutter of the transverse process at the vicinity of the medial branch. Once the tip of the needle was in contact with the bone, the needle pulled approximately 2 mm up the bone. The stylet of each needle was then removed. After negative aspiration of blood with CSF and confirmation of AP as well as oblique view, radiofrequency ablation probe was then inserted at each level. Impedance was then recorded at L3 to be 220, at L4 330, at L5 217, at S1 251 ohm. Motor- evoked potential was then initiated to 1.5 v olt without any motor response at each corresponding level. The probe was then removed intact and a total of 6 mL preservative-free 1% lidocaine was injected in divided doses between those 4 levels afte r negative aspiration of blood with CSF. The radiofrequency ablation probe was then reinserted after confirmation of AP, oblique as well as lateral view. Radiofrequency ablation was then initiated to 80 degrees Celsius for 90 seconds at each level. Once concluded, the probe was then removed intact and a total of 6 mL of preservative-free 0.25% Marcaine with 40 mg Depo-Medrol was injected in divided do ses between those 4 levels. The needles were then removed intact. The patient experienced no signs or symptoms of intrathecal, intravascular injection. The patient experienced no paraesthesia. The proce dure was completed without any apparent difficulty, any complication. The patient appeared to tolerate well. Sensory as well as motor exam was unchanged from prior to procedure. ASSESSMENT AND PLAN: Kanchan john is a 71-year-old Female with lumbosacral spondylosis, lumbosacral degenerative disc disease, lumbar facet arthropathy, status post left-sided radiofrequency ablation of the medial branch L3 through S 1. The patient will continue her current medications. The patient will follow up in approximately 2 weeks for reevaluation. 07/04/17 1217 <Electronically signed by Yuri Walsh MD> D ate Yuri Walsh MD CC: Radha Sebastian NP; Yuri Walsh Signed 04-Jul-2017 Lumbar Spine 2 or 3 Views Result: Comments: See Note; NOTES: [facility] Imaging Services [address] [place] [address] Lumbar Spine 2 or 3 Views MR#: [id number] Acct: [id number] Name: FRACNE LEE Rep #: [id number] : 1945 F 71 From: Toñito Castellanos MD PCP: Jaz STONE, Radha Status: [facility] Study: Lumbar Spine 2 or 3 Views Date of Exam: 07/04/17 Exam# [id number] Ordering Dr: Yuri Walsh MD S TUDY: X-RAY - LUMBAR SPINE REASON FOR EXAM: Female, 71 years old. Radiofrequency ablation. TECHNIQUE: 10 coned-down view(s) of the lumbar spine were obtained intraoperatively. COMPARISON: None FINDINGS: Fluoroscopic services provided for radiofrequency ablation of the left L3-S1 facet joints. RAD/Lumbar Sp ine 2 or 3 Views IMPRESSION: Imaging provided for radiofrequency ablation of the right L3-S1 levels. Electronically Signed: Toñito Castellanos MD at 9:31 EST Tel [phone], Service support , CC: Radha Sebastian NP; Yuri Walsh Tread Cutter: Signed 06-Jun-2017 Operative Report Result: Comments: See Note; NOTES: [facility] Medical Records Department [address] [place] [address] Operative Report 06/06/17 1102 MR#: [id number] Acct: [id number] Name: NUVIA LEE Rep #: [id number] : 1945 71 From: Yuri Walsh MD PCP: Radha Sebastian Status: DEP [facility] Y Location: [facility] Report of Operation Date of Procedure: 06/06/17 Pre-Operative Diagnosis: Lumbosacral spondylosis, lumbosacral disc disease, lumbar facet arthropathy Post-Operative Diagnosis: Lumbosacral spondylosis, lumbosacral degenerative disc disease, lumbar facet arthropathy. Surgery/Procedure Per formed:: Left-sided lumbar facet steroid injection L3, L4, L5, S1 Description of Surgical Findings:: Left-sided lumbar facet steroid injection L3, L4, L5, S1 PREOPERATIVE DIAGNOSIS: Lumbosacral spondy losis, lumbosacral degenerative disc disease, and lumbar facet arthropathy POSTOPERATIVE DIAGNOSIS: Lumbosacral spondylosis, lumbosacral degenerative disc disease, and lumbar facet arthropathy ANESTHE RYAN: MAC COMPLICATIONS: None BLOOD LOSS: Minimal PROCEDURE IN DETAIL: History and physical today was reviewed. Risks and benefits of the procedure were explained. The patient understood, agreed to ou r procedure, and informed consent was obtained. IV inserted per routine protocol. The patient was taken to the operating room, placed in a prone position with a pillow positioned underneath the abdomen. The right side of her lower back was prepped and draped in a sterile fashion using iodine x3. Under fluoroscopy guidance, on AP view, L3 through S1 vertebral bodies were visualized. Skin and subcutaneo us tissues were anesthetized with approximately 5 mL of 1% lidocaine using a 25- gauge regular needle. Under direct visualization with fluoroscopy at approximately 25-degree angle, starting on the left L 3, ending on the left S1, passing through the L4-L5 using a 22-gauge 3 1/2-inch spinal needle, the needle was advanced via the skin. The tip of the needle was maneuvered and directed towards the superio r and medial gutter of the transverse process at the vicinity of the medial branch. Once the tip of the needle was in contact with the bone, the needle pulled approximately 2 mm off the bone. After nega tive aspiration of blood with CSF and confirmation of AP as well as oblique view, a total of 8 mL of preservative-free 0.25% Marcaine with 80 mg of Depo-Medrol was injection in divided doses between tho se 4 levels. The needles were then removed intact. The patient experienced no signs or symptoms intrathecal, intravascular injection. The patient experienced no paraesthesia. The procedure was completed without any apparent difficult, any complication. The patient appeared to tolerate well. ASSESSMENT AND PLAN: This is a 71-year-old Female with lumbosacral spondylosis, lumbosacral degenerative disc d isease, and lumbar facet arthropathy, status post left-sided lumbar facet steroid injection L3 through S1. The patient will continue her current medications. The patient will follow in approximately 2 w eeks for possible repeat of the procedure if indicated. 06/06/17 1104 <Electronically signed by Yuri Walsh MD> Date Yuri Walsh MD CC: Radha Sebastian; Yuri Walsh Signed 06-Jun-2017 L/S Spine Min 4 Views Result: Comments: See Note; NOTES: [facility] Imaging Services [address] [place] [address] L/S Spine Min 4 Views MR#: [id number] Acct: [id number] Name: FRANCE LEE Rep #: [id number] : 1945 F 71 From: Toñito Castellanos MD PCP: Radha Sebastian Status: [facility] Study: L/S Spine Min 4 Views Date of Exam: 06/06/17 Exam# [id number] Ordering Dr: Yuri Walsh MD PROCEDURE: F acet joint block. DATE OF EXAMINATION: June 06, 2017 INDICATION: Female, 71 years old. Chronic low back pain. FLUOROSCOPY TIME (if supplied): (0:13) minutes/seconds Intraoperative fluoroscopic se rvices were provided for left L3 S1 facet joint block. RAD/L/S Spine Min 4 Views IMPRESSION: Imaging provided for left L3-S1 facet joint block. Electronically Signed: Toñito Castellanos MD at 11:11 EST Tel [phone], Service support , CC: Radha Sebastian; Yuri Walsh Tread Cutter: Signed 16-May-2017 Operative Report Result: Comments: See Note; NOTES: [facility] Medical Records Department [address] [place] [address] Operative Report 05/16/17 1046 MR#: [id number] Acct: [id number] Name: NUVIA LEE Rep #: [id number] : 1945 71 From: Yuri Walsh MD PCP: Radha Sebastian Status: [facility] Y Location: [place] [address] Report of Operation Date of Procedure: 05/16/17 Pre-Operative Diagnosis: Lumbo sacral spondylosis, lumbosacral degenerative disc disease, lumbar facet arthropathy Post-Operative Diagnosis: Lumbosacral spondylosis, lumbosacral degenerative disc disease, lumbar facet arthropathy Lee sheldon/Procedure Performed:: Left-sided lumbar facet steroid injection L3, L4, L5, S1 Description of Surgical Findings:: PROCEDURE: Left-sided lumbar facet steroid injection L3, L4, L5, S1 PREOPERATIVE DIAGNOSIS: Lumbosacral spondylosis, lumbosacral degenerative disc disease, and lumbar facet arthropathy POSTOPERATIVE DIAGNOSIS: Lumbosacral spondylosis, lumbosacral degenerative disc disease, and lumb ar facet arthropathy ANESTHESIA: MAC COMPLICATIONS: None BLOOD LOSS: Minimal PROCEDURE IN DETAIL: History and physical today was reviewed. Risks and benefits of the procedure were explained. The pat ient understood, agreed to our procedure, and informed consent was obtained. IV inserted per routine protocol. The patient was taken to the operating room, placed in a prone position with a pillow posit ioned underneath the abdomen. The left side of her lower back was prepped and draped in a sterile fashion using iodine x3. Under fluoroscopy guidance, on AP view, L3 through S1 vertebral bodies were vis ualized. Skin and subcutaneous tissues were anesthetized with approximately 5 mL of 1% lidocaine using a 25-gauge regular needle. Under direct visualization with fluoroscopy at approximately 25-degree a ngle, starting on the left L3, ending on the left S1, passing through the L4-L5 using a 22-gauge 3 1/2-inch spinal needle, the needle was advanced via the skin. The tip of the needle was maneuvered and directed towards the superior and medial gutter of the transverse process at the vicinity of the medial branch. Once the tip of the needle was in contact with the bone, the needle pulled approximately 2 mm off the bone. After negative aspiration of blood with CSF and confirmation of AP as well as oblique view, a total of 8 mL of preservative-free 0.25% Marcaine with 80 mg of Depo-Medrol was injection in divided doses between those 4 levels. The needles were then removed intact. The patient experienced no signs or symptoms intrathecal, intravascular injection. The patient experienced no paraesthesia. The procedure was completed without any apparent difficult, any complication. The patient appeared to tolerate well. ASSESSMENT AND PLAN: This is a 71-year-old Female with lumbosacral spondylosis, lum bosacral degenerative disc disease, and lumbar facet arthropathy, status post left-sided lumbar facet steroid injection L3 through S1. The patient will continue her current medications. The patient will follow in approximately 2 weeks for possible repeat of the procedure if indicated. 05/16/17 1047 <Electronically signed by Yuri Walsh MD> Date Yuri Walsh MD CC: Radha Sebastian; Yuri Walsh Signed 16-May-2017 L/S Spine Min 4 Views Result: Comments: See Note; NOTES: [facility] Imaging Services [address] [place] [address] L/S Spine Min 4 Views MR#: [id number] Acct: [id number] Name: FRANCE LEE Rep #: [id number] : 1945 F 71 From: Colton Zaman MD PCP: Radha Sebastian Status: [facility] Study: L/S Spine Min 4 Views Date of Exam: 05/16/17 Exam# [id number] Ordering Dr: Yuri Walsh MD STUDY: X-RAY - FL UOROSCOPIC GUIDANCE FOR LUMBAR INJECTIONS REASON FOR EXAM: Female, 71 years old. Back pain. Lumbar block L3-S1. TECHNIQUE: Fluoroscopic assistance was provided to Dr. aWlsh. 4 intraprocedural spot f ilms of the lumbar spine were obtained. COMPARISON: 5 films of the lumbar spine March 24, 2017. FINDINGS: Right and left side markers are not included. On the fir st film, a needle is seen with its tip positioned at a unilateral L2-3 articular facet. On the subsequent films, a needle is then positioned at the L3-4, L4-5, and L5-S1 facet articulations on the same side. RAD/L/S Spine Min 4 Views IMPRESSION: Fluoroscopic guidance for lumbar facet injections/nerve blocks. Electronically Signed: Jorge aguila MD at 17:47 EDT , Service support , CC: Radha Sebastian; Yuri Walsh Tread Cutter: Signed 18-Apr-2017 Operative Report Result: Comments: See Note; NOTES: [facility] Medical Records Department [address] [place] [address] Operative Report 04/18/17 1104 MR#: [id number] Acct: [id number] Name: BERRY LEEBENJAMÍN Cao Rep #: [id number] : 1945 71 From: Yuri Walsh MD PCP: Radha Sebastian Status: REG [facility] Y Location: [place] [address] Report of Operation Date of Procedure: 04/18/17 Pre-Operative Diagnosis: Lumbo sacral radiculopathy lumbosacral degenerative disc disease Post-Operative Diagnosis: Lumbosacral radiculopathy lumbosacral degenerative disc disease Surgery/Procedure Performed:: Diagnostic/therapeutic caudal epidural steroid injection Description of Surgical Findings:: Preoperative diagnosis: Lumbar radiculopathy, lumbar degenerative disc disease Postoperative diagnosis: Number radiculopathy lumbar degenerative disc disease Procedure: Diagnostic/therapeutic caudal epidural steroid injection Blood loss: Minimal Complication: None Anesthesia: MAC Procedure in detail: History and physical today was reviewed risk and benefits of procedure explained the patient understood and agreed to procedure informed consent was obtained IV inserted per routine medical patient was taken to the operating ugo rafaela in the prone position in the prone position with the abdomen the lower back and tailbone area was prepped and draped in a sterile fashion using iodine 3 under fluoroscopy guidance on lateral view ca udal space was identified the skin and subcutaneous tissue and size approximately 3 cc of 1% lidocaine using a 25-gauge needle under direct physician fluoroscopy using a 22-gauge 3-1/2 inch spinal needl e the needle was advanced via the skin through the sacral hiatus the peroneal passed through the sacrococcygeal ligament advanced approximately S4 area after negative CSF a total of 3 cc of contrast wer e injected to confirm correct placement of the needle as well as cephalad spread the spread was followed to approximately L5 area after confirmation AP as well as lateral view repeated negative aspirati on a total of 15 cc of preservative-free 0.125% Marcaine with 80 mg of the portal was injected easily the needle was then removed intact patient experienced no sinus symptoms intrathecal or intravascula r injection patient experienced no paresthesia procedure was completed without any apparent difficulty any competition the patient appeared to tolerate well. Assessment and plan: This is a 71-year-ol d female with lumbar radiculopathy lumbar degenerative disc disease status post diagnostic/therapeutic caudal epidural steroid injection patient will continue current medications patient will follow teri roximately 2 weeks for possible repeat procedure if indicated. Type of Anesthesia:: MAC 04/18/17 1106 <Electronically signed by Yuri Walsh MD> Date Yuri Walsh MD CC: Radha Sebastian; Yuri Walsh Signed 18-Apr-2017 Fluor Guidance for Spine Inj Result: Comments: See Note; NOTES: [facility] Imaging Services [address] [place] [address] Fluor Guidance for Spine Inj MR#: [id number] Acct: [id number] Name: FRANCE LEE Rep #: [id number] : 1945 F 71 From: Toñito Castellanos MD PCP: Radha Sebastian Status: [facility] Study: Fluor Guidance for Spine Inj Date of Exam: 04/18/17 Exam# [id number] Ordering Dr: Yuri Walsh MD STUDY: CAUDAL BLOCK. REASON FOR EXAM: Female, 71 years old. Chronic low back pain. FLUOROSCOPY TIME (if supplied): (0:07) minutes/seconds TECHNIQUE: A caudal block was performed by the pain managem ent physician. COMPARISON: None. FINDINGS: The tip of the spinal needle is seen along the posterior midportion of the sacrum. RAD/Fluor Guidance for Spine Inj IMPRESSION: Imaging provided for caudal block. Electronically Signed: Toñito Castellanos MD at 13:33 EDT Tel [phone], Service support , CC: Radha Sebastian; Yuri Walsh Tread Cutter: Signed 01-Apr-2017 SCREENING MAMM (CAD), BILAT Result: Comments: See Note; NOTES: [facility] Imaging Services [address] [place] [address] SCREENING MAMM (CAD), BILAT MR#: [id number] Acct: [id number] Name: FRANCE LEE Rep #: [id number] : 1945 F 71 From: Toñito Castellanos MD PCP: Radha Sebastian Status: REG CLI Study: SCREENING MAMM (CAD), BILAT Date of Exam: 04/01/17 Exam# [id number] Ordering Dr: Radha Sebastian MAMMOGRA PHY - BILATERAL SCREENING REASON FOR EXAM: Female, 71 years old. Routine annual screening examination. PERTINENT HISTORY: Personal history of breast cancer. Prior right lumpectomy with radiation treat ment. TECHNIQUE: Digital bilateral breast jovanni (3D mammographic acquisition) in the CC and MLO projections. 2-D mediolateral oblique (MLO) and craniocaudad (CC) views of both breasts were obtained. CAD : Full Field Digital Mammography with Computer Added Detection was performed. COMPARISON: Comparison is made with prior study dated March 19, 2016 and February 26, 2015. _ FINDINGS: Breast Composition: The breasts are almost entirely fatty. There are no dominant masses or suspicious calcifications. Stable deformity of the right breast secondary to prior lumpectomy and radiation treatment. No other significant abnormalities are identified. There has been no significant change since the prior study. HPBI/SCREEN ING MAMM (CAD), BILAT IMPRESSION: Stable bilateral screening mammogram. Yearly follow-up mammogram recommended. (A) ASSESSMENT CATEGORY: BIRADS Category 2: Benign. A letter regarding these results will be sent to the patient by the facility within 30 days. Approximately 10% of breast cancers are not detected by mammography. A normal mammogram should not delay bio psy of a clinically suspicious abnormality. [id number] Electronically Signed: Toñito Castellanos MD at 15:27 EDT Tel [phone], Service support , CC: Radha Sebastian Tread Cutter: Signed 24-Mar-2017 L/S Spine Min 4 Views Result: Comments: See Note; NOTES: [facility] Imaging Services [address] [address] L/S Spine Min 4 Views MR#: [id number] Acct: [id number] Name: FRANCE LEE Rep #: [id number] : 1945 F 71 From: Melissa Kevin PCP: Radha Sebastian Status: REG CLI Study: L/S Spine Min 4 Views Date of Exam: 03/24/17 Exam# [id number] Ordering Dr: Eileen Kat STUDY: X-RAY - LUMBAR SPINE REASON FOR EXAM: Female, 71 years old. back pain TECHNIQUE: 5 view(s) of the lumbar spine were obtained. COMPARISON: None FINDINGS: There is normal lumbar l ordosis. There is grade 1 anterolisthesis at L4/L5 There is multilevel endplate spondylosis of the lumbar vertebrae. There is multi-level degenerative disc disease with multi-level disc space narrowin g. The soft tissue structures are unremarkable. RAD/L/S Spine Min 4 Views IMPRESSION: Degenerative changes of the spine. Electronically Signed: Melissa Kevin MD at 8:46 EDT Tel , Service support , CC: Eileen Kat; Radha Sebastian Tread Cutter: Signed 17-Mar-2017 Abdomen Complete Result: Comments: See Note; NOTES: [facility] Imaging Services [address] [place] [address] Abdomen Complete MR#: [id number] Acct: [id number] Name: FRANCE LEE Rep #: [id number] OB: 1945 F 71 From: Magdaleno Vasquez DO PCP: Radha Sebastian Status: REG CLI Study: Abdomen Complete Date of Exam: 03/17/17 Exam# [id number] Ordering Dr: Radha Sebastian STUDY: ABDOMINAL ULTRASOUND REASON FOR EXAM: Female, 71 years old. Right lower quadrant pain TECHNIQUE: Transabdominal ultrasound was performed with real-time and static street scale imaging. TECHNICAL QUALITY: Adequate. COMPARISON: None. _ FINDINGS: Liver: The liver measures 20.1 cm. There is normal echogenicity of the liver. The bile ducts are within normal limits. There is hepatic color flow. The dir ection of portal flow is hepatopetal. There is no demonstrated mass lesion. Portal vein measurement: Gallbladder: Status post cholecystectomy. Common Bile Duct (C.B.D.): The common bile duct measures 2.7 mm. Pancreas: Normal size of the head, body and tail of the pancreas. There is normal echogenicity of the pancreas. There is no demonstrated pancreatic mass or cyst. Spleen: Enlarged size of the s pleen. The spleen measures 17.1 cm. Right Kidney: Normal size of the right kidney. The right kidney measures 13.6 x 5.6 x 4.7 cm. Normal renal cortex. The right cortex measures 1.6 cm. There is a mid r enal 4.4 cm cyst. There is no right hydronephrosis. Left Kidney: Normal size of the left kidney. The left kidney measures 12.6 x 5.2 x 4.6 cm. Normal renal cortex. The left cortex measures 1.4 cm. Ther e is no demonstrated renal mass or cyst. There is no left hydronephrosis. Aorta: The visualized portion is normal. I.V.C.: The IVC is patent. There is no ascites. US/Abdomen Complete IMPRESSION: Hepatosplenomegaly. Right renal cyst. Electronically Signed: Magdaleno Vasquez DO at 19:53 EDT Tel [phone], Service support , Fa x [phone] CC: Radha Sebastian Tread Cutter: Signed 19-Mar-2016 Bilat Scrn Digital AND CAD Result: Comments: See Note; NOTES: [facility] Imaging Services [address] [place] [address] Verdana 4d Bilat Scrn Digital AND CAD MR#: [id number] Acct: [id number] Name: NUVIA LEE Rep #: [id number] : 1945 F 70 From: Toñito Castellanos MD PCP: Radha Sebastian Status: REG CLI Study: Erik Proctor Digital AND CAD Date of Exam: 03/19/16 Exam# [id number] Ordering Dr: Nelida Nguyen MAMMOGRAPHY - BILATERAL SCREENING REASON FOR EXAM: Female, 70 years old. Routine annual screening examination. PERTINENT HISTORY: Personal history of breast cancer. TECHNIQUE: Digital bi lateral breast jovanni (3D mammographic acquisition) in the CC and MLO projections. 2-D mediolateral oblique (MLO) and craniocaudad (CC) views of both breasts were obtained. CAD: Full Field Digital Mammogr aphy with Computer Added Detection was performed. COMPARISON: Comparison is made with prior study dated February 26, 2015 and February 25, 2014. FINDINGS: Breast Compositio n: The breasts are almost entirely fatty. There are no dominant masses or suspicious calcifications. The patient is status post right lumpectomy with resultant architectural distortion in the upper out er aspect of the right breast. This is unchanged. No other significant abnormalities are identified. There has been no significant change since the prior study. O RDER #: [id number] HPBI/Erik Proctor Digital AND CAD IMPRESSION: Stable bilateral screening mammogram. Yearly follow-up mammogram recommended. (A) ASSESSMENT CATEGORY: BIRADS Category 2: Benign. A letter regarding these results will be sent to the patient by the facility within 30 days. Approximately 10% of breast cancers are not detected by mammography. A normal ma mmogram should not delay biopsy of a clinically suspicious abnormality. [id number] Electronically Signed: Toñito Castellanos MD at 11:19 EDT Tel [phone], Service support [phone], Fax CC: Mariela Nguyen; Radha Sebastian Tread Cutter: Signed 03-Mar-2015 Abdomen Limited Result: Comments: See Note; NOTES: [facility] Imaging Services [address] [place] [address] Ultrasound Report MR#: [id number] Acct: [id number] Name: FRANCE LEE Rep #: [id number] : 1945 F 69 From: Toñito Castellanos MD PCP: Zeina Herzog MD Status: REG CLI Study: Abdomen Limited Date of Exam: 03/03/15 Exam# [id number] Ordering Dr: Zeina Herzog MD STUDY: A BDOMINAL ULTRASOUND - RIGHT UPPER QUADRANT REASON FOR VISIT: Female, 69 years old. Elevated liver function tests. TECHNIQUE: Ultrasound evaluation of the right upper quadrant was performed with bernard l-time and static street-scale imaging. TECHNICAL QUALITY: Limited. Examination limited due to obesity. COMPARISON: None. FINDINGS: Liver: The liver is mildly enlarged and measures 18.2 cm. There is increased echogenicity consistent with fatty infiltration. The bile ducts are within normal limits. There is hepatic color flow. The direction of portal flow i s hepatopetal. There is no demonstrated mass lesion. Gallbladder: The patient is status post cholecystectomy. Common Bile Duct (C.B.D.): The common bile duct measures 5.5 mm. Pancreas: Normal size of the head, body and tail of the pancreas. There is normal echogenicity of the pancreas. There is no demonstrated pancreatic mass or cyst. Right Kidney: Normal size of the right kidney. The right kidney measures 12.7 cm x 5.3 cm x 4.4 cm. Normal renal cortex. The right cortex measures 1.6 cm. There is a 3.1 cm x 3.2 cm x 3.0 cm right renal cyst in the midportion of the kidney. There is no rig ht hydronephrosis. IMPRESSION: Fatty infiltration of the liver. Mild hepatomegaly. Right renal cyst in the midportion of the right kidney. Electronically Coco d: Toñito Castellanos MD at 9:58 EDT Tel [phone], Service support [phone], CC: Zeina Herzog MD Tread Cutter: Signed 26-Feb-2015 Bilat Scrn Digital AND CAD Result: Comments: See Note; NOTES: [facility] Imaging Services [address] [place] [address] Breast Imaging Report MR#: [id number] Acct: [id number] Name: FRANCE LEE Rep #: [id number] : 1945 F 69 From: Toñito Castellanos MD PCP: Zeina Herzog MD Status: REG CLI Study: Bilat Scrn Digital AND CAD Date of Exam: 02/26/15 Exam# [id number] Ordering Dr: Zeina Herzog MD MAMMOGRAPHY - BILATERAL SCREENING REASON FOR EXAM: Female, 69 years old. Routine annual screening examination. PERTINENT HISTORY: Personal history of breast cancer. TECHNIQUE: Digital exam ination. Mediolateral oblique (MLO) and craniocaudad (CC) views of both breasts were obtained. CAD: CAD was performed on this study. COMPARISON: Comparison is made with prior study dated February 25 and February 22, 2013. FINDINGS: Breast Composition: The breasts are almost entirely fatty. There are no dominant masses or suspicious calcifications. The patie nt is status post right lumpectomy with resultant architectural distortion in the upper outer aspect of the right breast and overlying skin thickening in with prior surgery. No other significant ab normalities are identified. There has been no significant change since the prior study. IMPRESSION: Stable bilateral screening mammogram. Yearly follow-up recomm ended. (A) ASSESSMENT CATEGORY: BIRADS Category 2: Benign. A letter regarding these results will be sent to the patient by the facility within 30 days. Approx imately 10% of breast cancers are not detected by mammography. A normal mammogram should not delay biopsy of a clinically suspicious abnormality. Electronically Signed: Toñito Castellanos MD 2014 at 13:54 EDT Tel [phone], Service support [phone], CC: Zeina Herzog MD Tread Cutter: Signed 12-Aug-2014 Kidney and Bladder Result: Comments: See Note; NOTES: [facility] Imaging Services [address] [place] [address] Ultrasound Report MR#: [id number] Acct: [id number] Name: FRANCE LEE Rep #: [id number] : 1945 F 68 From: Toñito Castellanos MD PCP: Zeina Herzog MD Status: REG CLI Study: Kidney and Bladder Date of Exam: 08/12/14 Exam# [id number] Ordering Dr: Zeina Herzog MD STUDY: RENAL ULTRASOUND - COMPLETE REASON FOR EXAM: Female, 68 years old. Renal cyst. TECHNIQUE: Ultrasound evaluation of the kidneys was performed with real-time and static bethea-scale imaging. The study is limited due to the patient's body habitus. COMPARISON: Comparison is made with prior examination dated March 10, 2010. FINDINGS: RIGHT KIDNEY: Normal lo cation of the right kidney, which is normal in size. The right kidney measures 11.4 cm x 5.8 cm x 4.5 cm. There is a normal cortex of the right kidney. The renal cortex measures 1.2 cm. There is a 2. 8 cm x 2.8 cm x 3.4 cm cyst in the lower pole and this has increased slightly in size as compared to prior study. There are no right renal calculi. There is no right hydronephrosis. DISTAL RIGHT URE TER: There is non-visualization of the distal right ureter. There is no demonstrated right ureterovesical junction calculus. There is no demonstrated right ureteral jet. LEFT KIDNEY: Normal location of the left kidney, which is normal in size. The left kidney measures 13.4 cm x 4.5 cm x 4.5 cm. There is a normal cortex of the left kidney. The renal cortex measures 1.6 cm. There is a 3 cm x 4 cm x 1.5 cm angiomyolipoma in the upper pole of the knee. There are no left renal calculi. There is no left hydronephrosis. DISTAL LEFT URETER: There is non- visualization of the distal left ureter. Th ere is no demonstrated left ureterovesical junction calculus. There is no demonstrated left ureteral jet. BLADDER: The bladder is empty at the time of the examination. IMPRESSION: Slight enlargement of the right renal cyst. Angiomyolipoma is seen in the left kidney. Electronically Signed: Toiñto Castellanos MD at 15:20 EST Tel [phone], Se rvice support [phone], CC: Zeina Herzog MD Tread Cutter: Signed 25-Feb-2014 Bilat Scrn Digital & CAD Result: Comments: See Note; NOTES: [facility] Imaging Services [address] [place] [address] Breast Imaging Report MR#: [id number] Acct: [id number] Name: FRANCE LEE Rep #: [id number] : 1945 F 68 From: Toñito Castellanos MD PCP: Zeina Herzog MD Status: REG CLI Exam# [id number] Ordering Dr: Mariela Nguyen [employer]-C MAMMOGRAPHY - BILATERAL SCREENING REASON FOR EXAM: Female, 68 years old. Routine annual screening examination. PERTINENT HISTORY: Personal history of breast cancer. TECHNIQUE: Digital examination. Mediolateral oblique (MLO) and craniocaudad (CC) views of both breasts were obtained. CAD: CAD was performed on this study. COMPARISON: Comparison is made with prior study dated February 22, 2013 in February 14, 2012. FINDINGS: The breast composition is almost entirely fatty with glandular tissue comprising less than 25% of the total breast volume. The patient is status post lumpectomy involving the axill les portion of the left breast with resultant deformity of the breast and architectural distortion. This is unchanged. No other significant abnormalities are identified. There has been no significa nt change since the prior study. IMPRESSION: Stable bilateral screening mammogram. Yearly follow-up recommended. (A) ASSESS MENT CATEGORY: BIRADS Category 2: Benign finding(s). A letter regarding these results will be sent to the patient by the facility within 30 days. Approximately 10% of breast cancers are not detected by mammography. A normal mammogram should not delay biopsy of a clinically suspicious abnormality. Electronically Signed: Toñito Castellanos MD at 11:00 EDT Tel [phone], Service s upport [phone], CC: Zeina Herzog MD; Mariela Nguyen Tread Cutter: Signed 15-Jan-2014 Brain W/WO Contrast Result: Comments: See Note; NOTES: [facility] Imaging Services [address] [place] [address] MRI Report MR#: [id number] Acct: [id number] Name: FRANCE LEE Rep #: [id number] : 1945 F 68 From: Sara Strickland DO PCP: Zeina Herzog MD Status: REG CLI Study: Brain W/WO Contrast Date of Exam: 01/15/14 Exam# [id number] Ordering Dr: Zeina Herzog MD STUDY: MRI BRAIN WITH AND WITHOUT CONTRAST REASON FOR EXAM: Female, 68 years old. Headache for 6 months, breast cancer TECHNIQUE: Standardized multiplanar fat and water weighted pulse sequences were obtained. 10 m l of Gadavist contrast material was administered intravenously for the contrast portion of the examination. COMPARISON: None. FINDINGS: Normal size of the vent ricles and extra-axial spaces for the patient's age. There are a limited number of small white matter hyperintensities, distributed throughout the deep white matter tracts of the cerebral hemispheres , consistent with mild chronic white matter ischemic changes. There is no evidence for recent intracranial ischemia or other cause of cytotoxic edema on diffusion weighted imaging (DWI). Normal bila teral basal ganglia. Normal thalami. There is no extra-axial fluid accumulation. Normal flow voids within the major intracranial circulation suggesting patency by spin echo criteria. Normal venous e nhancement. There is no enhancing intra-axial or extra-axial abnormality. Normal sella turcica, pituitary gland, infundibular stalk, optic chiasm and hypothalamus. Normal tectal plate and pineal gla nd. Normal midbrain, leona and medulla. Normal cerebellum. Normal basal cisterns. Normal bilateral temporal bones. Normal bilateral internal auditory canals. No demonstrated orbital abnormality, wi thin the constraints of a routine brain study. Normal visualized paranasal sinuses. Normal calvarium and skull base. Normal visualized soft tissue structures. Normal visualized upper cervical spine. IMPRESSION: Examination is within normal limits for stated age. There is no identified metastatic disease. No acute findings. Electronically Signed: Sara Strickland DO at 21:17 EDT Tel , Service support [phone], CC: Zeina Herzog MD Tread Cutter: Signed 27-Dec-2013 EKG ([id number]) Comments: see scanned document of test done to see results reviewed today with patient Result: [MEASUREMENTS ANALYSIS] Date of Test: 12/27/2013 12:30:05; Heart Rate: 76; NE Interval: 186; QRS: 100; QT Interval: 382; Corrected QT Interval (QTc): 410; P Wave Herndon: 39; QRS Wave Herndon: -12; T Wave Axi s: 64; Blood Pressure: 116/74 [ECG DIAGNOSTIC STATEMENTS] Date of Test: 12/27/2013 12:30:05; Summary: Sinus Rhythm -RSR(V1) -nondiagnostic. PROBABLY NORMAL Family History Unknown Family Member Name Dates Details Family Members In General Comments: Aunt - alcoholic, Br CA, Bowel CA, Everyone has HBP, aunt with ulcer disease Status: Active Mother Comments: heart disease - Emotional prob. Status: Active Social History Name Dates Details Alcohol Use Comments: Maybe 5 drinks a year Status: Active Caffeine Use Comments: 2 cups green tea qd, rare soda Status: Active Exercise History Comments: Inactive Status: Active Living Situation Comments: , heterosexual, abstain Status: Active No Drug Use Status: Active Non Smoker/No Tobacco Use Status: Active Tobacco use: Never smoker. Status: Active Smoking Status Name Dates Details Never smoker Vital Signs Date Test Result Details :07 Temperature 97.3 f Comments: Method: Temporal Pulse 91 /min Comments: Pattern: Regular Respiration Rate 18 /min Comments: Pattern: Unlabored O2 SAT 92 % Comments: Room air BP Systolic 128 mm[Hg] Comments: Patient Position: Sitting; Cuff Location: Left Arm; Cuff Size: Standard BP Diastolic 84 mm[Hg] Comments: Patient Position: Sitting; Cuff Location: Left Arm; Cuff Size: Standard Weight 289.25 lb Height 61 in Body Mass Index Calculated 54.65 kg/m2 Body Surface Area Calculated 2.21 m2 :13 Temperature 97.7 f Comments: Method: Temporal Pulse 72 /min Comments: Pattern: Regular Respiration Rate 16 /min Comments: Pattern: Unlabored O2 SAT 97 % Comments: Room air BP Systolic 142 mm[Hg] Comments: Patient Position: Sitting; Cuff Location: Left Arm; Cuff Size: Standard BP Diastolic 72 mm[Hg] Comments: Patient Position: Sitting; Cuff Location: Left Arm; Cuff Size: Standard Weight 300.25 lb Height 61 in Body Mass Index Calculated 56.73 kg/m2 Body Surface Area Calculated 2.25 m2 :17 Temperature 97 f Comments: Method: Temporal Pulse 71 /min Comments: Pattern: Regular Respiration Rate 18 /min Comments: Pattern: Unlabored O2 SAT 96 % Comments: Room air BP Systolic 138 mm[Hg] Comments: Patient Position: Sitting; Cuff Location: Left Arm; Cuff Size: Standard BP Diastolic 78 mm[Hg] Comments: Patient Position: Sitting; Cuff Location: Left Arm; Cuff Size: Standard Weight 300.25 lb Height 61 in Body Mass Index Calculated 56.73 kg/m2 Body Surface Area Calculated 2.25 m2 :28 Temperature 98.5 f Pulse 86 /min Comments: Pattern: Regular Respiration Rate 24 /min Comments: Pattern: Unlabored O2 SAT 97 % Comments: Room air BP Systolic 160 mm[Hg] Comments: Patient Position: Sitting; Cuff Location: Left Arm; Cuff Size: Standard BP Diastolic 52 mm[Hg] Comments: Patient Position: Sitting; Cuff Location: Left Arm; Cuff Size: Standard Weight 302 lb Height 61 in Body Mass Index Calculated 57.06 kg/m2 Body Surface Area Calculated 2.25 m2 :19 Temperature 98.2 f Comments: Method: Temporal Pulse 92 /min Comments: Pattern: Regular Respiration Rate 16 /min Comments: Pattern: Unlabored O2 SAT 92 % Comments: Room air BP Systolic 132 mm[Hg] Comments: Patient Position: Sitting; Cuff Location: Left Arm; Cuff Size: Standard BP Diastolic 88 mm[Hg] Comments: Patient Position: Sitting; Cuff Location: Left Arm; Cuff Size: Standard Weight 299 lb Height 61 in Body Mass Index Calculated 56.49 kg/m2 Body Surface Area Calculated 2.24 m2 :16 Temperature 98.6 f Pulse 66 /min Comments: Pattern: Regular Respiration Rate 16 /min Comments: Pattern: Unlabored O2 SAT 96 % Comments: Room air BP Systolic 126 mm[Hg] Comments: Patient Position: Sitting; Cuff Location: Left Arm; Cuff Size: Standard BP Diastolic 70 mm[Hg] Comments: Patient Position: Sitting; Cuff Location: Left Arm; Cuff Size: Standard Weight 299 lb Height 61 in Body Mass Index Calculated 56.49 kg/m2 Body Surface Area Calculated 2.24 m2 [id number] Temperature 97 f Pulse 87 /min Comments: Pattern: Regular Respiration Rate 16 /min Comments: Pattern: Unlabored O2 SAT 93 % Comments: Room air BP Systolic 118 mm[Hg] Comments: Patient Position: Sitting; Cuff Location: Left Arm; Cuff Size: Standard BP Diastolic 68 mm[Hg] Comments: Patient Position: Sitting; Cuff Location: Left Arm; Cuff Size: Standard Weight 291 lb Height 61 in Body Mass Index Calculated 54.98 kg/m2 Body Surface Area Calculated 2.22 m2 [id number] Temperature 97.6 f Pulse 62 /min Comments: Pattern: Regular Respiration Rate 16 /min Comments: Pattern: Unlabored O2 SAT 98 % Comments: Room air BP Systolic 126 mm[Hg] Comments: Patient Position: Sitting; Cuff Location: Left Arm; Cuff Size: Standard BP Diastolic 70 mm[Hg] Comments: Patient Position: Sitting; Cuff Location: Left Arm; Cuff Size: Standard Weight 296.375 lb Height 61 in Body Mass Index Calculated 56 kg/m2 Body Surface Area Calculated 2.23 m2 :41 Temperature 98.1 f Pulse 84 /min Comments: Pattern: Regular Respiration Rate 18 /min Comments: Pattern: Unlabored O2 SAT 96 % Comments: Room air BP Systolic 124 mm[Hg] Comments: Patient Position: Sitting; Cuff Location: Left Arm; Cuff Size: Standard BP Diastolic 68 mm[Hg] Comments: Patient Position: Sitting; Cuff Location: Left Arm; Cuff Size: Standard Weight 292 lb Height 61 in Body Mass Index Calculated 55.17 kg/m2 Body Surface Area Calculated 2.22 m2 :38 Pulse 84 /min Comments: Pattern: Regular Respiration Rate 18 /min Comments: Pattern: Unlabored O2 SAT 92 % Comments: Room air BP Systolic 128 mm[Hg] Comments: Patient Position: Sitting; Cuff Location: Left Arm; Cuff Size: Large BP Diastolic 62 mm[Hg] Comments: Patient Position: Sitting; Cuff Location: Left Arm; Cuff Size: Large Weight 290 lb Height 61 in Body Mass Index Calculated 54.79 kg/m2 Body Surface Area Calculated 2.21 m2 :02 Temperature 98.1 f Comments: Method: Temporal Pulse 97 /min Comments: Pattern: Regular Respiration Rate 18 /min Comments: Pattern: Unlabored O2 SAT 96 % Comments: Room air BP Systolic 124 mm[Hg] Comments: Patient Position: Sitting; Cuff Location: Left Arm; Cuff Size: Large BP Diastolic 82 mm[Hg] Comments: Patient Position: Sitting; Cuff Location: Left Arm; Cuff Size: Large Weight 291.125 lb Height 61 in Body Mass Index Calculated 55.01 kg/m2 Body Surface Area Calculated 2.22 m2 :02 Pulse 79 /min Comments: Pattern: Regular Respiration Rate 18 /min Comments: Pattern: Unlabored O2 SAT 96 % Comments: Room air BP Systolic 122 mm[Hg] Comments: Patient Position: Sitting; Cuff Location: Left Arm; Cuff Size: Large BP Diastolic 78 mm[Hg] Comments: Patient Position: Sitting; Cuff Location: Left Arm; Cuff Size: Large Weight 299.5 lb Height 61 in Body Mass Index Calculated 56.59 kg/m2 Body Surface Area Calculated 2.24 m2 :34 Temperature 98.5 f Pulse 71 /min Comments: Pattern: Regular Respiration Rate 18 /min Comments: Pattern: Unlabored O2 SAT 97 % Comments: Room air BP Systolic 120 mm[Hg] Comments: Patient Position: Sitting; Cuff Location: Left Arm; Cuff Size: Standard BP Diastolic 60 mm[Hg] Comments: Patient Position: Sitting; Cuff Location: Left Arm; Cuff Size: Standard Weight 304 lb Height 61 in Body Mass Index Calculated 57.44 kg/m2 Body Surface Area Calculated 2.26 m2 :51 Temperature 97.1 f Comments: Method: Temporal Pulse 82 /min Comments: Pattern: Regular Respiration Rate 16 /min Comments: Pattern: Unlabored BP Systolic 132 mm[Hg] Comments: Patient Position: Sitting; Cuff Location: Left Arm; Cuff Size: Standard BP Diastolic 70 mm[Hg] Comments: Patient Position: Sitting; Cuff Location: Left Arm; Cuff Size: Standard Weight 318 lb Height 61 in Body Mass Index Calculated 60.08 kg/m2 Body Surface Area Calculated 2.3 m2 :53 Temperature 97.8 f Comments: Method: Temporal Pulse 76 /min Comments: Pattern: Regular Respiration Rate 24 /min Comments: Pattern: Labored O2 SAT 95 % Comments: Room air BP Systolic 120 mm[Hg] Comments: Patient Position: Sitting; Cuff Location: Left Arm; Cuff Size: Large BP Diastolic 78 mm[Hg] Comments: Patient Position: Sitting; Cuff Location: Left Arm; Cuff Size: Large Weight 318 lb Height 61 in Body Mass Index Calculated 60.08 kg/m2 Body Surface Area Calculated 2.3 m2 :10 Temperature 97.4 f Comments: Method: Oral Pulse 78 /min Comments: Pattern: Regular Respiration Rate 16 /min Comments: Pattern: Unlabored O2 SAT 98 % Comments: Room air BP Systolic 126 mm[Hg] Comments: Patient Position: Sitting; Cuff Location: Left Arm; Cuff Size: Standard BP Diastolic 78 mm[Hg] Comments: Patient Position: Sitting; Cuff Location: Left Arm; Cuff Size: Standard Weight 325 lb Height 61 in Body Mass Index Calculated 61.41 kg/m2 Body Surface Area Calculated 2.32 m2 :38 Temperature 97.6 f Comments: Method: Temporal Pulse 74 /min Comments: Pattern: Regular Respiration Rate 20 /min Comments: Pattern: Unlabored O2 SAT 95 % Comments: Room air BP Systolic 130 mm[Hg] Comments: Patient Position: Sitting; Cuff Location: Left Arm; Cuff Size: Large BP Diastolic 78 mm[Hg] Comments: Patient Position: Sitting; Cuff Location: Left Arm; Cuff Size: Large Weight 326 lb Height 61 in Body Mass Index Calculated 61.6 kg/m2 Body Surface Area Calculated 2.33 m2 :21 BP Systolic 142 mm[Hg] Comments: Patient Position: Sitting; Cuff Location: Left Arm; Cuff Size: Standard BP Diastolic 80 mm[Hg] Comments: Patient Position: Sitting; Cuff Location: Left Arm; Cuff Size: Standard :11 Temperature 98.2 f Comments: Method: Temporal Pulse 101 /min Comments: Pattern: Regular Respiration Rate 16 /min Comments: Pattern: Unlabored O2 SAT 96 % Comments: Room air BP Systolic 150 mm[Hg] Comments: Patient Position: Sitting; Cuff Location: Left Arm; Cuff Size: Standard BP Diastolic 88 mm[Hg] Comments: Patient Position: Sitting; Cuff Location: Left Arm; Cuff Size: Standard Weight 323.5875 lb Height 61 in Body Mass Index Calculated 61.14 kg/m2 Body Surface Area Calculated 2.32 m2 :48 Temperature 97.9 f Comments: Method: Temporal Pulse 77 /min Comments: Pattern: Regular Respiration Rate 16 /min Comments: Pattern: Unlabored O2 SAT 97 % Comments: Room air BP Systolic 130 mm[Hg] Comments: Patient Position: Sitting; Cuff Location: Left Arm; Cuff Size: Standard BP Diastolic 76 mm[Hg] Comments: Patient Position: Sitting; Cuff Location: Left Arm; Cuff Size: Standard Weight 322.1875 lb Height 61 in Body Mass Index Calculated 60.88 kg/m2 Body Surface Area Calculated 2.31 m2 :32 Pulse 85 /min Comments: Pattern: Regular Respiration Rate 16 /min Comments: Pattern: Unlabored O2 SAT 98 % Comments: Room air BP Systolic 126 mm[Hg] Comments: Patient Position: Sitting; Cuff Location: Left Arm; Cuff Size: Standard BP Diastolic 72 mm[Hg] Comments: Patient Position: Sitting; Cuff Location: Left Arm; Cuff Size: Standard Weight 318.1875 lb Height 61 in Body Mass Index Calculated 60.12 kg/m2 Body Surface Area Calculated 2.3 m2 :24 Temperature 97 f Comments: Method: Oral Pulse 86 /min Comments: Pattern: Regular Respiration Rate 20 /min O2 SAT 97 % Comments: Room air BP Systolic 120 mm[Hg] Comments: Patient Position: Sitting; Cuff Location: Left Arm; Cuff Size: Standard BP Diastolic 78 mm[Hg] Comments: Patient Position: Sitting; Cuff Location: Left Arm; Cuff Size: Standard Weight 326.1875 lb Height 61 in Body Mass Index Calculated 61.63 kg/m2 Body Surface Area Calculated 2.33 m2 :23 Temperature 97.6 f Comments: Method: Oral Pulse 74 /min Comments: Pattern: Regular Respiration Rate 20 /min Comments: Pattern: Unlabored BP Systolic 116 mm[Hg] Comments: Patient Position: Sitting; Cuff Location: Left Arm; Cuff Size: Large BP Diastolic 74 mm[Hg] Comments: Patient Position: Sitting; Cuff Location: Left Arm; Cuff Size: Large Weight 326 lb Height 61 in Body Mass Index Calculated 61.6 kg/m2 Body Surface Area Calculated 2.33 m2 :31 Temperature 98.4 f Comments: Method: Oral Pulse 70 /min Comments: Pattern: Regular Respiration Rate 20 /min Comments: Pattern: Unlabored BP Systolic 116 mm[Hg] Comments: Patient Position: Sitting; Cuff Location: Left Arm; Cuff Size: Large BP Diastolic 74 mm[Hg] Comments: Patient Position: Sitting; Cuff Location: Left Arm; Cuff Size: Large Weight 320 lb Height 61 in Body Mass Index Calculated 60.46 kg/m2 Body Surface Area Calculated 2.31 m2 :08 Temperature 97.2 f Comments: Method: Temporal Pulse 74 /min Comments: Pattern: Regular Respiration Rate 16 /min Comments: Pattern: Unlabored O2 SAT 96 % Comments: Room air BP Systolic 128 mm[Hg] Comments: Patient Position: Sitting; Cuff Location: Left Arm; Cuff Size: Standard BP Diastolic 84 mm[Hg] Comments: Patient Position: Sitting; Cuff Location: Left Arm; Cuff Size: Standard Weight 318 lb Height 61 in Body Mass Index Calculated 60.08 kg/m2 Body Surface Area Calculated 2.3 m2 :05 Temperature 97.6 f Comments: Method: Oral Pulse 72 /min Comments: Pattern: Regular Respiration Rate 18 /min Comments: Pattern: Unlabored BP Systolic 120 mm[Hg] Comments: Patient Position: Sitting; Cuff Location: Left Arm; Cuff Size: Large BP Diastolic 80 mm[Hg] Comments: Patient Position: Sitting; Cuff Location: Left Arm; Cuff Size: Large Weight 321 lb Height 61 in Body Mass Index Calculated 60.65 kg/m2 Body Surface Area Calculated 2.31 m2 :07 Temperature 98.1 f Comments: Method: Oral Pulse 76 /min Comments: Pattern: Regular Respiration Rate 20 /min Comments: Pattern: Unlabored BP Systolic 124 mm[Hg] Comments: Patient Position: Sitting; Cuff Location: Left Arm; Cuff Size: Large BP Diastolic 72 mm[Hg] Comments: Patient Position: Sitting; Cuff Location: Left Arm; Cuff Size: Large Weight 315 lb Height 61 in Body Mass Index Calculated 59.52 kg/m2 Body Surface Area Calculated 2.29 m2 :16 Temperature 98.6 f Comments: Method: Oral Pulse 76 /min Comments: Pattern: Regular Respiration Rate 16 /min Comments: Pattern: Unlabored BP Systolic 102 mm[Hg] Comments: Patient Position: Sitting; Cuff Location: Left Arm; Cuff Size: Standard BP Diastolic 70 mm[Hg] Comments: Patient Position: Sitting; Cuff Location: Left Arm; Cuff Size: Standard Weight 314 lb Height 61 in Body Mass Index Calculated 59.33 kg/m2 Body Surface Area Calculated 2.29 m2 :13 Pulse 80 /min Comments: Pattern: Regular Respiration Rate 20 /min Comments: Pattern: Unlabored BP Systolic 118 mm[Hg] Comments: Patient Position: Sitting; Cuff Location: Left Arm; Cuff Size: Large BP Diastolic 78 mm[Hg] Comments: Patient Position: Sitting; Cuff Location: Left Arm; Cuff Size: Large Weight 311 lb Height 61 in Body Mass Index Calculated 58.76 kg/m2 Body Surface Area Calculated 2.28 m2 :36 Temperature 97.6 f Comments: Method: Oral Pulse 70 /min Comments: Pattern: Regular Respiration Rate 20 /min Comments: Pattern: Unlabored BP Systolic 118 mm[Hg] Comments: Patient Position: Sitting; Cuff Location: Left Arm; Cuff Size: Large BP Diastolic 78 mm[Hg] Comments: Patient Position: Sitting; Cuff Location: Left Arm; Cuff Size: Large Weight 311 lb Height 61 in Body Mass Index Calculated 58.76 kg/m2 Body Surface Area Calculated 2.28 m2 :58 Temperature 97.8 f Comments: Method: Oral Pulse 70 /min Comments: Pattern: Regular Respiration Rate 20 /min Comments: Pattern: Unlabored BP Systolic 118 mm[Hg] Comments: Patient Position: Sitting; Cuff Location: Left Arm; Cuff Size: Large BP Diastolic 76 mm[Hg] Comments: Patient Position: Sitting; Cuff Location: Left Arm; Cuff Size: Large Weight 309 lb Height 61 in Body Mass Index Calculated 58.38 kg/m2 Body Surface Area Calculated 2.27 m2 :10 Temperature 97.6 f Comments: Method: Oral Pulse 70 /min Comments: Pattern: Regular Respiration Rate 18 /min Comments: Pattern: Unlabored BP Systolic 118 mm[Hg] Comments: Patient Position: Sitting; Cuff Location: Left Arm; Cuff Size: Large BP Diastolic 78 mm[Hg] Comments: Patient Position: Sitting; Cuff Location: Left Arm; Cuff Size: Large Weight 312 lb Height 61 in Body Mass Index Calculated 58.95 kg/m2 Body Surface Area Calculated 2.28 m2 :33 Temperature 98.1 f Comments: Method: Oral Pulse 74 /min Comments: Pattern: Regular Respiration Rate 20 /min Comments: Pattern: Unlabored O2 SAT 97 % Comments: Room air BP Systolic 128 mm[Hg] Comments: Patient Position: Sitting; Cuff Location: Left Arm; Cuff Size: Standard BP Diastolic 78 mm[Hg] Comments: Patient Position: Sitting; Cuff Location: Left Arm; Cuff Size: Standard Weight 312 lb Height 61 in Body Mass Index Calculated 58.95 kg/m2 Body Surface Area Calculated 2.28 m2 :32 Temperature 98.4 f Comments: Method: Oral Pulse 74 /min Comments: Pattern: Regular Respiration Rate 20 /min Comments: Pattern: Unlabored BP Systolic 126 mm[Hg] Comments: Patient Position: Sitting; Cuff Location: Left Arm; Cuff Size: Large BP Diastolic 84 mm[Hg] Comments: Patient Position: Sitting; Cuff Location: Left Arm; Cuff Size: Large Weight 312 lb Height 61 in Body Mass Index Calculated 58.95 kg/m2 Body Surface Area Calculated 2.28 m2 :20 Pulse 82 /min Comments: Pattern: Regular Respiration Rate 17 /min Comments: Pattern: Unlabored BP Systolic 122 mm[Hg] Comments: Patient Position: Sitting; Cuff Location: Left Arm; Cuff Size: Standard BP Diastolic 70 mm[Hg] Comments: Patient Position: Sitting; Cuff Location: Left Arm; Cuff Size: Standard Weight 315 lb Height 61 in Body Mass Index Calculated 59.52 kg/m2 Body Surface Area Calculated 2.29 m2 : Temperature 97.8 f Comments: Method: Oral Pulse 80 /min Comments: Pattern: Regular Respiration Rate 16 /min Comments: Pattern: Unlabored BP Systolic 112 mm[Hg] Comments: Patient Position: Sitting; Cuff Location: Left Arm; Cuff Size: Large BP Diastolic 72 mm[Hg] Comments: Patient Position: Sitting; Cuff Location: Left Arm; Cuff Size: Large Weight 315 lb Height 61 in Body Mass Index Calculated 59.52 kg/m2 Body Surface Area Calculated 2.29 m2 :17 Temperature 97.6 f Comments: Method: Oral Pulse 76 /min Comments: Pattern: Regular Respiration Rate 20 /min Comments: Pattern: Unlabored BP Systolic 124 mm[Hg] Comments: Patient Position: Sitting; Cuff Location: Left Arm; Cuff Size: Large BP Diastolic 58 mm[Hg] Comments: Patient Position: Sitting; Cuff Location: Left Arm; Cuff Size: Large Weight 320 lb Height 61 in Body Mass Index Calculated 60.46 kg/m2 Body Surface Area Calculated 2.31 m2 :06 Temperature 97.6 f Comments: Method: Oral Pulse 70 /min Comments: Pattern: Regular Respiration Rate 20 /min Comments: Pattern: Unlabored BP Systolic 122 mm[Hg] Comments: Patient Position: Sitting; Cuff Location: Left Arm; Cuff Size: Large BP Diastolic 80 mm[Hg] Comments: Patient Position: Sitting; Cuff Location: Left Arm; Cuff Size: Large Weight 327 lb Height 61 in Body Mass Index Calculated 61.79 kg/m2 Body Surface Area Calculated 2.33 m2 :34 Temperature 97.7 f Comments: Method: Oral Pulse 74 /min Comments: Pattern: Regular Respiration Rate 18 /min Comments: Pattern: Unlabored BP Systolic 122 mm[Hg] Comments: Patient Position: Sitting; Cuff Location: Left Arm; Cuff Size: Large BP Diastolic 84 mm[Hg] Comments: Patient Position: Sitting; Cuff Location: Left Arm; Cuff Size: Large Weight 327 lb :43 Temperature 97.8 f Comments: Method: Oral Pulse 68 /min Comments: Pattern: Regular Respiration Rate 22 /min Comments: Pattern: Unlabored BP Systolic 120 mm[Hg] Comments: Patient Position: Sitting; Cuff Location: Left Arm; Cuff Size: Large BP Diastolic 78 mm[Hg] Comments: Patient Position: Sitting; Cuff Location: Left Arm; Cuff Size: Large Weight 330 lb :20 Pulse 76 /min Comments: Pattern: Regular Respiration Rate 20 /min Comments: Pattern: Unlabored BP Systolic 122 mm[Hg] Comments: Patient Position: Sitting; Cuff Location: Left Arm; Cuff Size: Large BP Diastolic 78 mm[Hg] Comments: Patient Position: Sitting; Cuff Location: Left Arm; Cuff Size: Large Weight 330 lb :32 Temperature 98.1 f Comments: Method: Oral Pulse 70 /min Comments: Pattern: Regular Respiration Rate 18 /min Comments: Pattern: Unlabored BP Systolic 122 mm[Hg] Comments: Patient Position: Sitting; Cuff Location: Left Arm; Cuff Size: Standard BP Diastolic 72 mm[Hg] Comments: Patient Position: Sitting; Cuff Location: Left Arm; Cuff Size: Standard Weight 338.0625 lb :07 Temperature 97.2 f Comments: Method: Oral Pulse 88 /min Comments: Pattern: Regular Respiration Rate 17 /min Comments: Pattern: Unlabored O2 SAT 97 % Comments: Room air BP Systolic 122 mm[Hg] Comments: Patient Position: Sitting; Cuff Location: Left Arm; Cuff Size: Standard BP Diastolic 70 mm[Hg] Comments: Patient Position: Sitting; Cuff Location: Left Arm; Cuff Size: Standard Weight 327 lb :02 Pulse 68 /min Comments: Pattern: Regular Respiration Rate 20 /min Comments: Pattern: Unlabored BP Systolic 116 mm[Hg] Comments: Patient Position: Sitting; Cuff Location: Left Arm; Cuff Size: Large BP Diastolic 78 mm[Hg] Comments: Patient Position: Sitting; Cuff Location: Left Arm; Cuff Size: Large Weight 327 lb Height 0 in Head Circumference 0.00 cm :05 Pulse 72 /min Comments: Pattern: Regular Respiration Rate 18 /min Comments: Pattern: Unlabored BP Systolic 124 mm[Hg] Comments: Patient Position: Sitting; Cuff Location: Left Arm; Cuff Size: Large BP Diastolic 84 mm[Hg] Comments: Patient Position: Sitting; Cuff Location: Left Arm; Cuff Size: Large Weight 329 lb Height 0 in Head Circumference 0.00 cm :44 Pulse 74 /min Comments: Pattern: Regular Respiration Rate 18 /min Comments: Pattern: Unlabored BP Systolic 124 mm[Hg] Comments: Patient Position: Sitting; Cuff Location: Left Arm; Cuff Size: Large BP Diastolic 80 mm[Hg] Comments: Patient Position: Sitting; Cuff Location: Left Arm; Cuff Size: Large Weight 324.0375 lb Height 0 in Head Circumference 0.00 cm :42 Pulse 80 /min Comments: Pattern: Regular Respiration Rate 16 /min Comments: Pattern: Unlabored BP Systolic 120 mm[Hg] Comments: Patient Position: Sitting; Cuff Location: Left Arm; Cuff Size: Large BP Diastolic 64 mm[Hg] Comments: Patient Position: Sitting; Cuff Location: Left Arm; Cuff Size: Large Weight 324 lb Height 0 in Head Circumference 0.00 cm :42 Temperature 97.9 f Comments: Method: Oral Pulse 74 /min Comments: Pattern: Regular Respiration Rate 18 /min Comments: Pattern: Unlabored BP Systolic 142 mm[Hg] Comments: Patient Position: Sitting; Cuff Location: Left Arm; Cuff Size: Standard BP Diastolic 82 mm[Hg] Comments: Patient Position: Sitting; Cuff Location: Left Arm; Cuff Size: Standard Weight 320 lb Height 0 in Head Circumference 0.00 cm :11 Temperature 97.9 f Comments: Method: Oral Pulse 78 /min Comments: Pattern: Regular Respiration Rate 18 /min Comments: Pattern: Unlabored BP Systolic 122 mm[Hg] Comments: Patient Position: Sitting; Cuff Location: Left Arm; Cuff Size: Standard BP Diastolic 72 mm[Hg] Comments: Patient Position: Sitting; Cuff Location: Left Arm; Cuff Size: Standard Weight 320 lb Height 0 in Head Circumference 0.00 cm :35 Temperature 97.7 f Comments: Method: Oral Pulse 74 /min Comments: Pattern: Regular Respiration Rate 16 /min Comments: Pattern: Unlabored BP Systolic 124 mm[Hg] Comments: Patient Position: Sitting; Cuff Location: Left Arm; Cuff Size: Large BP Diastolic 84 mm[Hg] Comments: Patient Position: Sitting; Cuff Location: Left Arm; Cuff Size: Large Weight 320 lb Height 0 in Head Circumference 0.00 cm :42 Temperature 97.8 f Comments: Method: Oral Pulse 70 /min Comments: Pattern: Regular Respiration Rate 16 /min Comments: Pattern: Unlabored BP Systolic 118 mm[Hg] Comments: Patient Position: Sitting; Cuff Location: Left Arm; Cuff Size: Standard BP Diastolic 78 mm[Hg] Comments: Patient Position: Sitting; Cuff Location: Left Arm; Cuff Size: Standard Weight 327.0187 lb Height 0 in Head Circumference 0.00 cm :32 Temperature 97.8 f Comments: Method: Oral Pulse 74 /min Comments: Pattern: Regular Respiration Rate 18 /min Comments: Pattern: Unlabored O2 SAT 96 % Comments: Room air BP Systolic 130 mm[Hg] Comments: Patient Position: Sitting; Cuff Location: Left Arm; Cuff Size: Large BP Diastolic 80 mm[Hg] Comments: Patient Position: Sitting; Cuff Location: Left Arm; Cuff Size: Large Weight 321 lb Height 0 in Head Circumference 0.00 cm :59 Temperature 98.4 f Comments: Method: Oral Pulse 64 /min Comments: Pattern: Regular Respiration Rate 18 /min Comments: Pattern: Unlabored BP Systolic 124 mm[Hg] Comments: Patient Position: Sitting; Cuff Location: Left Arm; Cuff Size: Large BP Diastolic 82 mm[Hg] Comments: Patient Position: Sitting; Cuff Location: Left Arm; Cuff Size: Large Weight 315.05 lb Height 0 in Head Circumference 0.00 cm :23 Temperature 98.6 f Comments: Method: Oral Pulse 74 /min Comments: Pattern: Regular Respiration Rate 20 /min Comments: Pattern: Unlabored BP Systolic 124 mm[Hg] Comments: Patient Position: Sitting; Cuff Location: Left Arm; Cuff Size: Large BP Diastolic 80 mm[Hg] Comments: Patient Position: Sitting; Cuff Location: Left Arm; Cuff Size: Large Weight 319 lb Height 0 in Head Circumference 0.00 cm :02 Temperature 97.6 f Comments: Method: Oral Pulse 80 /min Comments: Pattern: Regular Respiration Rate 20 /min Comments: Pattern: Unlabored BP Systolic 132 mm[Hg] Comments: Patient Position: Sitting; Cuff Location: Left Arm; Cuff Size: Large BP Diastolic 84 mm[Hg] Comments: Patient Position: Sitting; Cuff Location: Left Arm; Cuff Size: Large Weight 334 lb Height 0 in Head Circumference 0.00 cm :00 Temperature 97.6 f Comments: Method: Oral Pulse 78 /min Comments: Pattern: Regular Respiration Rate 20 /min Comments: Pattern: Unlabored BP Systolic 130 mm[Hg] Comments: Patient Position: Sitting; Cuff Location: Left Arm; Cuff Size: Standard BP Diastolic 90 mm[Hg] Comments: Patient Position: Sitting; Cuff Location: Left Arm; Cuff Size: Standard Weight 335 lb Height 0 in Head Circumference 0.00 cm :20 Temperature 97.6 f Comments: Method: Oral Pulse 76 /min Comments: Pattern: Regular Respiration Rate 20 /min Comments: Pattern: Unlabored BP Systolic 128 mm[Hg] Comments: Patient Position: Sitting; Cuff Location: Left Arm; Cuff Size: Standard BP Diastolic 80 mm[Hg] Comments: Patient Position: Sitting; Cuff Location: Left Arm; Cuff Size: Standard Weight 337 lb Height 0 in Head Circumference 0.00 cm :28 Temperature 97.9 f Comments: Method: Oral Pulse 77 /min Comments: Pattern: Regular Respiration Rate 14 /min Comments: Pattern: Unlabored BP Systolic 132 mm[Hg] Comments: Patient Position: Sitting; Cuff Location: Left Arm; Cuff Size: Standard BP Diastolic 78 mm[Hg] Comments: Patient Position: Sitting; Cuff Location: Left Arm; Cuff Size: Standard Weight 334.4375 lb Height 61 in Body Mass Index Calculated 63.19 kg/m2 Body Surface Area Calculated 2.35 m2 Head Circumference 0.00 cm Results Date Description Value Details :33 URINE MIRANDA CULTURE-IDENTIFICATN Comments: PERFORMED BY: [place] [id number] [facility] [id number] Information: SRC:KIERSTEN ([id number]) Result 1 MUG (Normal) Comments: Mixed urogenital flora1,000 Colonies/mL Urine Culture,Comprehensive Final report (Normal) [id number] Urinalysis, Office ([id number]) UA - LEUKOCYTE ESTERASE Negative (Normal) UA - NITRITE Negative (Normal) URINE UROBILINGN ADAM TIMED Normal mg/dL (Normal) UA - PROTEIN Trace mg/dL (Normal) UA - PH 6 (Abnormal) UA - BLOOD Negative (Normal) UA - SPECIFIC GRAVITY 1.030 (Abnormal) UA - KETONES Negative mg/dL (Normal) UA - BILIRUBIN Small (Normal) UA - GLUCOSE Negative (Normal) [id number] ANTINUCLEAR ANTIBODIES DIRECT Comments: [facility] (refer to report for specific site)refer to report for address and phone number [id number] Negative (Normal) Comments: Performed at: [facility] [id number] Director: Sohail Palafox PhD, Phone: [phone] [id number] CBC W/Diff, Automated Comments: [facility] [id number] [place], [place], [id number] Absolute Lymph 1.12 {X10_3/ul} (Normal) Range: 0.83-4.51 Absolute Neut 2.2 {X10_3/uL} (Normal) Range: 2.0-7.7 IM GRAN % 0.000 % (Normal) Range: 0.0-0.9 Comments: IG% - Immature Granulocytes (promyelocytes, myelocytes andmetamyelocytes) > 1% indicates that a LEFT SHIFT is Present. BASO% 0.8 % (Normal) Range: 0-1 EO% 6.3 % (Abnormal) Range: 0-5 MONO% 6.3 % (Normal) Range: 0-10 LY% 29.2 % (Normal) Range: 19-41 NEUT% 57.4 % (Normal) Range: 47-70 MPV 9.3 fL (Normal) Range: 6.2-12.0 PLT 94 K/mm3 (Abnormal) Range: 150-450 RDW SD 53.4 fL (Abnormal) Range: 35.1-43.9 RDW CV 15.2 % (Abnormal) Range: 11.6-14.6 MCHC 32.4 {g/gl} (Normal) Range: 32-36 MCH 31.9 pg (Normal) Range: 27.0-32.0 MCV 98.5 fL (Normal) Range: 81-99 HCT 38.3 % (Normal) Range: 37-47 HGB 12.4 g/dL (Normal) Range: 12.0-15.0 RBC 3.89 {M/mm3} (Abnormal) Range: 4.2-5.4 WBC 3.8 K/mm3 (Abnormal) Range: 4.4-11.0 [id number] CCP IgG Antibodies Comments: [facility] (refer to report for specific site)refer to report for address and phone number [id number] 11 {units} (Normal) Range: 0-19 Comments: Negative <20 Weak positive 20 - 39 Moderate positive 40 - 59 Strong positive >59 [id number] Comprehensive Metabolic Profil Comments: [facility] [id number] [place], [place], [id number] GAP 11 (Normal) Range: 5-15 CO2 24.0 mmol/L (Normal) Range: 21.0-32.0 CL 104 mmol/L (Normal) Range: 98-107 K 3.7 mmol/L (Normal) Range: 3.5-5.1 NA 139 mmol/L (Normal) Range: 136-145 T BILI 0.60 mg/dL (Normal) Range: 0.20-1.00 ALT 28 U/L (Normal) Range: 13-56 ALK P 109 U/L (Normal) Range: 45-117 AST 43 U/L (Abnormal) Range: 15-37 CA 9.5 mg/dL (Normal) Range: 8.5-10.1 A/G 0.8 {RATIO} (Abnormal) Range: 0.9-2.4 GLOB 4.2 g/dL (Normal) Range: 2.2-4.2 ALB 3.2 g/dL (Normal) Range: 3.2-5.0 T PROT 7.4 g/dL (Normal) Range: 6.4-8.2 BUN/CRE 13.8 {RATIO} (Normal) Range: 10-20 EST GFR - AA 82 mL/min (Normal) Comments: GFR Calc EST GFR 68 mL/min (Normal) Comments: Non- GFR Calc CREAT,SERUM 0.87 mg/dL (Normal) Range: 0.55-1.02 Comments: The validity of the calculated GFR AND GFRAA in patients over70 years has not been determined. Clinical correlation isessential. BUN 12 mg/dL (Normal) Range: 7-18 GLU 145 mg/dL (Abnormal) Range: 74-106 Comments: Fasting Glucose result greater than or equal to 126 mg/dLsuggests DIABETES MELLITUS per A.D.A. criteria.Please note revised GLUCOSE reference range [id number]/02/2018. :38 CRP Comments: [facility] [id number] [place], [place], [id number] C-REACTIVE PROT 3.33 mg/L (Abnormal) Range: 0.0-3.0 Comments: C-Reactive Protein (CRP) provides useful information for thediagnosis, therapy and monitoring of inflammatory processesand associated diseases. For the evaluation of Relative Riskfor Cardiovascular Dise ase, a High Sensitivity CRP (HSCRP)should be ordered. :38 Erythrocyte Sed Rate Comments: [facility] [address] [place], [place], [id number] SED RATE 46 mm/h (Abnormal) Range: 0-30 :38 Hep B Surface Antibodies Comments: [facility] (refer to report for specific site)refer to report for address and phone number Hep B Lee AB Non Reactive (Normal) Comments: Non Reactive: Inconsistent with immunity, less than 10 mIU/mL Reactive: Consistent with immunity, greater than 9.9 mIU/ mL :38 Hepatitis B Surface Ag Comments: [facility] (refer to report for specific site)refer to report for address and phone number HB SURF AG Negative (Normal) Comments: Performed at: - [facility] [id number] Director: Sohail Palafox PhD, Phone: [phone] at: - [facility] [id number] Director: Noe Fitzgerald PhD, Phone: [phone] at: - [facility] [id number] Director: Juanpablo Zamora MD, Phone: [phone] :38 Hepatitis C Antibodies Comments: [facility] (refer to report for specific site)refer to report for address and phone number HEP C AB <0.1 {s/co_ratio} Range: 0.0-0.9 (Normal) Comments: Negative: < 0.8 Indeterminate: 0.8 - 0.9 Positive: > 0.9 The CDC recommends that a positive HCV antibody result be followed up with a HCV Nucleic Acid Amplification test (955958). HLA B27 Negative (Normal) Comments: [facility] (refer to report for specific site)refer to report for address and phone number :38 Comments: HLA-B*27 XrcnvgrgE15 allele interpretation for all loci based on IMGT/HLAdatabase version 3.27This test was developed and its performance characteristicsdetermined by [facility]. It has not been cleared o r approvedby the Food and Drug Administration.[facility] CLIA ID Number [id number] test was performed using PCR (Polymerase ChainReaction)/SSOP (Sequence Specific Oligonucleotide Probes)technique. SBT (Sequence Based Typing) and/or SSP(Sequence Specific Primers) may be used as supplementalmethods when necessary. Please contact [facility] CustomerService at if you have any questions. Director of [facility] Laboratory Dr Noe Fitzgerald, PhD :38 Rheumatoid Factor Comments: [facility] [address] [place], [place], [id number] RHEUMATOID FAC < 10.0 {IU/mL} (Normal) :38 Sjogren's Antibodies A/B Comments: [facility] (refer to report for specific site)refer to report for address and phone number Anti-SS-B < 0.2 {AI} (Normal) Range: 0.0-0.9 Anti-SS-A < 0.2 {AI} (Normal) Range: 0.0-0.9 99-Lyr-078253:25 URINE MIRANDA CULTURE-IDENTIFICATN Comments: PATIENT NOT FASTINGPERFORMED BY: [facility] TownshipLsvejj9708 [facility] [id number] Information: SRC:UC (21229) Result 1 MUG (Normal) Comments: Mixed urogenital floraGreater than 100,000 colony forming units per mL Urine Culture,Comprehensive Final report (Normal) 35-Tfm-957204:14 Urinalysis, Office (49816) UA - LEUKOCYTE ESTERASE Small (Normal) UA - NITRITE Positive (Normal) URINE UROBILINGN ADAM TIMED Normal mg/dL (Normal) UA - PROTEIN Negative mg/dL (Normal) UA - PH 7 (Normal) UA - BLOOD Negative (Normal) UA - SPECIFIC GRAVITY 1.020 (Normal) UA - KETONES Negative mg/dL (Normal) UA - BILIRUBIN Negative (Normal) UA - GLUCOSE Negative (Normal) 29-Jzt-10169:07 Bedside Glucose Comments: [facility] [address] [place] [address] BEDSIDE GLU 92 mg/dL (Normal) Range: 70-110 Comments: MANAGEMENT OF PATIENT CARE PER NURSING PROTOCOL 6-Zvm-829214:02 AFP, Tumor Marker Comments: SEND COPY OF RESULTS TO RADHA ESPINOZA.Is Patient ? [facility] (refer to report for specific site)refer to report for address and phone number AFP TUMOR 2253 4.2 ng/mL (Normal) Range: 0.0-8.3 Comments: Rikki ECLIA methodologyPerformed at: [facility] [id number] Director: Sohail Palafox PhD, Phone: [phone] 6-Eem-459860:02 CBC-Complete Blood Cnt No Diff Comments: SEND COPY OF RESULTS TO RADHA ESPINOZA.[facility] [address] [place], [address] MPV 9.2 fL (Normal) Range: 6.2-12.0 PLT 103 K/mm3 (Abnormal) Range: 150-450 RDW SD 53.7 fL (Abnormal) Range: 35.1-43.9 RDW CV 16.2 % (Abnormal) Range: 11.6-14.6 MCHC 30.8 {g/gl} (Abnormal) Range: 32-36 MCH 28.8 pg (Normal) Range: 27.0-32.0 MCV 93.5 fL (Normal) Range: 81-99 HCT 31.8 % (Abnormal) Range: 37-47 HGB 9.8 g/dL (Abnormal) Range: 12.0-15.0 RBC 3.40 {M/mm3} (Abnormal) Range: 4.2-5.4 WBC 4.1 K/mm3 (Abnormal) Range: 4.4-11.0 :02 Comprehensive Metabolic Profil Comments: SEND COPY OF RESULTS TO RADHA ESPINOZA.[facility] [address] [place], [id number] GAP 10 (Normal) Range: 5-15 CO2 28.0 mmol/L (Normal) Range: 21.0-32.0 CL 107 mmol/L (Normal) Range: 98-107 K 4.3 mmol/L (Normal) Range: 3.5-5.1 NA 145 mmol/L (Normal) Range: 136-145 T BILI 0.40 mg/dL (Normal) Range: 0.20-1.00 ALT 27 U/L (Normal) Range: 13-56 ALK P 88 U/L (Normal) Range: 45-117 AST 34 U/L (Normal) Range: 15-37 CA 9.3 mg/dL (Normal) Range: 8.5-10.1 A/G 0.7 {RATIO} (Abnormal) Range: 0.9-2.4 GLOB 4.4 g/dL (Abnormal) Range: 2.2-4.2 ALB 3.2 g/dL (Normal) Range: 3.2-5.0 T PROT 7.6 g/dL (Normal) Range: 6.4-8.2 BUN/CRE 22.2 {RATIO} (Abnormal) Range: 10-20 EST GFR - AA 84 mL/min (Normal) Comments: GFR Calc EST GFR 69 mL/min (Normal) Comments: Non- GFR Calc CREAT,SERUM 0.86 mg/dL (Normal) Range: 0.55-1.02 Comments: The validity of the calculated GFR AND GFRAA in patients over70 years has not been determined. Clinical correlation isessential. BUN 19 mg/dL (Abnormal) Range: 7-18 GLU 65 mg/dL (Abnormal) Range: 74-106 Comments: Please note revised GLUCOSE reference range kqrbdawxw20/02/2018. 7-Rlo-079042:02 Iron Comments: SEND COPY OF RESULTS TO RADHA ESPINOZA.[facility] [address] [place], [id number] IRON 46 ug/dL (Abnormal) Range: 50-170 45-Ifz-351033:11 HGB A1C (88750) HGB A1C 5.3 % (Normal) Range: 4.6 - 7.1 07-Fmi-596211:53 Blood Glucose , Office (73668) Blood Glucose , Office 74 (Normal) 04-Kwd-42237:19 Bedside Glucose Comments: [facility] LaboratoryPoint of [address] [place], [place] [address] BEDSIDE GLU 102 mg/dL (Normal) Range: 70-110 Comments: MANAGEMENT OF PATIENT CARE PER NURSING PROTOCOL 5-Ngb-440183:31 Lipid Panel (81046) Comments: PATIENT NOT FASTINGPERFORMED BY: [facility]CoSaint [facility] TownshipUvpzjq7595 [facility] [id number] LDL/HDL Ratio 2.5 {ratio} (Normal) Range: 0.0-3.2 Comments: LDL/HDL Ratio Men Women 1/2 Avg.Risk 1.0 1.5 Av g.Risk 3.6 3.2 2X Avg.Risk 6.2 5.0 3X Avg.Risk 8.0 6.1 LDL Cholesterol Calc 114 mg/dL (Abnormal) Range: 0-99 VLDL Cholesterol Damon 31 mg/dL (Normal) Range: 5-40 HDL Cholesterol 46 mg/dL (Normal) Triglycerides 156 mg/dL (Abnormal) Range: 0-149 Cholesterol, Total 191 mg/dL (Normal) Range: 100-199 1-Jql-495101:31 CBC, Platelets & Auto Diff Comments: PATIENT NOT FASTINGPERFORMED BY: [facility] Brgdoy9590 [facility] [id number] (20402) Hematology Comments: Note: (Normal) Comments: Verified by microscopic examination. Immature Grans (Abs) 0.0 {x10E3/uL} (Normal) Range: 0.0-0.1 Immature Granulocytes 0 % (Normal) Baso (Absolute) 0.0 {x10E3/uL} (Normal) Range: 0.0-0.2 Eos (Absolute) 0.1 {x10E3/uL} (Normal) Range: 0.0-0.4 Monocytes(Absolute) 0.2 {x10E3/uL} (Normal) Range: 0.1-0.9 Lymphs (Absolute) 1.3 {x10E3/uL} (Normal) Range: 0.7-3.1 Neutrophils (Absolute) 2.8 {x10E3/uL} (Normal) Range: 1.4-7.0 Basos 0 % (Normal) Eos 3 % (Normal) Monocytes 5 % (Normal) Lymphs 30 % (Normal) Neutrophils 62 % (Normal) Platelets 83 {x10E3/uL} (Abnormal) Range: 150-379 Comments: Platelet count verified by examination of peripheral blood smear. RDW 16.0 % (Abnormal) Range: 12.3-15.4 MCHC 31.9 g/dL (Normal) Range: 31.5-35.7 MCH 30.1 pg (Normal) Range: 26.6-33.0 MCV 94 fL (Normal) Range: 79-97 Hematocrit 33.5 % (Abnormal) Range: 34.0-46.6 Hemoglobin 10.7 g/dL (Abnormal) Range: 11.1-15.9 RBC 3.56 {x10E6/uL} Range: 3.77-5.28 (Abnormal) Comments: Polychromasia presentOvalocytes present. WBC 4.5 {x10E3/uL} (Normal) Range: 3.4-10.8 1-Nft-236921:31 Metabolic Panel, Comprehensive Comments: PATIENT NOT FASTINGPERFORMED BY: [facility] [address]132 [facility] [id number]; has appt today with [facility] ([address]) ALT (SGPT) 23 [iU]/L (Normal) Range: 0-32 AST (SGOT) 29 [iU]/L (Normal) Range: 0-40 Alkaline Phosphatase 92 [iU]/L (Normal) Range: 39-117 Bilirubin, Total 0.3 mg/dL (Normal) Range: 0.0-1.2 A/G Ratio 1.1 (Abnormal) Range: 1.2-2.2 Globulin, Total 3.3 g/dL (Normal) Range: 1.5-4.5 Albumin 3.7 g/dL (Normal) Range: 3.5-4.8 Protein, Total 7.0 g/dL (Normal) Range: 6.0-8.5 Calcium 9.8 mg/dL (Normal) Range: 8.7-10.3 Carbon Dioxide, Total 24 mmol/L (Normal) Range: 18-29 Chloride 106 mmol/L (Normal) Range: 96-106 Potassium 4.4 mmol/L (Normal) Range: 3.5-5.2 Sodium 145 mmol/L (Abnormal) Range: 134-144 BUN/Creatinine Ratio 30 (Abnormal) Range: 12-28 eGFR If Africn Am 81 mL/min/1.73 (Normal) eGFR If NonAfricn Am 70 mL/min/1.73 (Normal) Creatinine 0.84 mg/dL (Normal) Range: 0.57-1.00 BUN 25 mg/dL (Normal) Range: 8-27 Glucose 98 mg/dL (Normal) Range: 65-99 :34 Bedside Glucose Comments: [facility]Point of [address] [place] [address] BEDSIDE GLU 95 mg/dL (Normal) Range: 70-110 Comments: MANAGEMENT OF PATIENT CARE PER NURSING PROTOCOL; ADDENDA: ordered by dr walsh 05-Heh-599436:21 HgA1C , Office (78479) HgA1C , Office 5.2 % (Normal) Range: 4.6 - 7.1 04-Apa-055608:20 Blood Glucose , Office (43147) Blood Glucose , Office 104 (Normal) :13 Bedside Glucose Comments: [facility] LaboratoryPoint of [address] [place], [place] [address] BEDSIDE GLU 99 mg/dL (Normal) Range: 70-110 Comments: MANAGEMENT OF PATIENT CARE PER NURSING PROTOCOL 65-Gka-06669:18 Bedside Glucose Comments: [facility]Point [facility] [place], [place] [address] BEDSIDE GLU 101 mg/dL (Normal) Range: 70-110 Comments: MANAGEMENT OF PATIENT CARE PER NURSING PROTOCOL 78-Gfu-867575:30 Lipid Panel (05828) Comments: Jun 2017; PATIENT WAS FASTINGPERFORMED BY: [facility]CoSaint [facility] Bo[facility] TownshipFwkpfp0177 [facility] [id number] LDL/HDL Ratio 3.0 {ratio_units} (Normal) Range: 0.0-3.2 Comments: LDL/HDL Ratio Men Women 1/2 Avg.Risk 1.0 1.5 Av g.Risk 3.6 3.2 2X Avg.Risk 6.2 5.0 3X Avg.Risk 8.0 6.1 LDL Cholesterol Calc 141 mg/dL (Abnormal) Range: 0-99 VLDL Cholesterol Damon 34 mg/dL (Normal) Range: 5-40 HDL Cholesterol 47 mg/dL (Normal) Triglycerides 171 mg/dL (Abnormal) Range: 0-149 Cholesterol, Total 222 mg/dL (Abnormal) Range: 100-199 29-Bzx-525588:30 CBC, Platelets & Auto Diff Comments: Jun 2017; PATIENT WAS FASTINGPERFORMED BY: [facility] Ykepit3199 [facility] [id number] ([id number]) Hematology Comments: Note: (Normal) Comments: Verified by microscopic examination. Immature Grans (Abs) 0.0 {x10E3/uL} (Normal) Range: 0.0-0.1 Immature Granulocytes 0 % (Normal) Baso (Absolute) 0.0 {x10E3/uL} (Normal) Range: 0.0-0.2 Eos (Absolute) 0.1 {x10E3/uL} (Normal) Range: 0.0-0.4 Monocytes(Absolute) 0.4 {x10E3/uL} (Normal) Range: 0.1-0.9 Lymphs (Absolute) 1.5 {x10E3/uL} (Normal) Range: 0.7-3.1 Neutrophils (Absolute) 3.2 {x10E3/uL} (Normal) Range: 1.4-7.0 Basos 1 % (Normal) Eos 2 % (Normal) Monocytes 8 % (Normal) Lymphs 28 % (Normal) Neutrophils 61 % (Normal) Platelets 83 {x10E3/uL} (Abnormal) Range: 150-379 Comments: Platelet count verified by examination of peripheral blood smear. RDW 14.8 % (Normal) Range: 12.3-15.4 MCHC 32.7 g/dL (Normal) Range: 31.5-35.7 MCH 32.9 pg (Normal) Range: 26.6-33.0 MCV 101 fL (Abnormal) Range: 79-97 Hematocrit 34.9 % (Normal) Range: 34.0-46.6 Hemoglobin 11.4 g/dL (Normal) Range: 11.1-15.9 Comments: Effective July 04, 2017 the reference interval for Hemoglobin MALES only will be changing to: Males 13-15 years: 12.6 - 17.7 Males >15 years: 13.0 - 17.7 RBC 3.46 {x10E6/uL} (Abnormal) Range: 3.77-5.28 Comments: Ovalocytes present. WBC 5.3 {x10E3/uL} (Normal) Range: 3.4-10.8 60-Cgu-087872:30 Metabolic Panel, Comprehensive Comments: Jun 2017; PATIENT WAS FASTINGPERFORMED BY: [facility]CoSaint [facility] TownshipMxzaxt4026 [facility] [id number] (40079) ALT (SGPT) 23 [iU]/L (Normal) Range: 0-32 AST (SGOT) 34 [iU]/L (Normal) Range: 0-40 Alkaline Phosphatase, S 80 [iU]/L (Normal) Range: 39-117 Bilirubin, Total 0.6 mg/dL (Normal) Range: 0.0-1.2 A/G Ratio 1.1 (Abnormal) Range: 1.2-2.2 Globulin, Total 3.4 g/dL (Normal) Range: 1.5-4.5 Albumin, Serum 3.7 g/dL (Normal) Range: 3.5-4.8 Protein, Total, Serum 7.1 g/dL (Normal) Range: 6.0-8.5 Calcium, Serum 10.0 mg/dL (Normal) Range: 8.7-10.3 Carbon Dioxide, Total 24 mmol/L (Normal) Range: 18-29 Chloride, Serum 101 mmol/L (Normal) Range: 96-106 Potassium, Serum 4.9 mmol/L (Normal) Range: 3.5-5.2 Sodium, Serum 143 mmol/L (Normal) Range: 134-144 BUN/Creatinine Ratio 35 (Abnormal) Range: 12-28 eGFR If Africn Am 71 mL/min/1.73 (Normal) eGFR If NonAfricn Am 62 mL/min/1.73 (Normal) Creatinine, Serum 0.94 mg/dL (Normal) Range: 0.57-1.00 BUN 33 mg/dL (Abnormal) Range: 8-27 Glucose, Serum 92 mg/dL (Normal) Range: 65-99 :45 HgA1C , Office (35576) HgA1C , Office 5.5 % (Normal) Range: 4.6 - 7.1 51-Uxj-782839:45 Blood Glucose , Office (79449) Blood Glucose , Office 99 (Normal) 77-Wev-308015:04 LIPID PANEL (21341) Comments: PATIENT WAS FASTINGPERFORMED BY: [facility] [employer]6370 [facility] [id number] LDL/HDL Ratio 4.6 {ratio_units} (Abnormal) Range: 0.0-3.2 Comments: LDL/HDL Ratio Men Women 1/2 Avg.Risk 1.0 1.5 Av g.Risk 3.6 3.2 2X Avg.Risk 6.2 5.0 3X Avg.Risk 8.0 6.1 LDL Cholesterol Calc 183 mg/dL (Abnormal) Range: 0-99 VLDL Cholesterol Damon 33 mg/dL (Normal) Range: 5-40 HDL Cholesterol 40 mg/dL (Normal) Triglycerides 165 mg/dL (Abnormal) Range: 0-149 Cholesterol, Total 256 mg/dL (Abnormal) Range: 100-199 63-Udf-787220:04 HEPATIC FUNCTION PANEL Comments: PATIENT WAS FASTINGPERFORMED BY: [facility]6370 [facility] [id number] ([id number]) ALT (SGPT) 24 [iU]/L (Normal) Range: 0-32 AST (SGOT) 43 [iU]/L (Abnormal) Range: 0-40 Alkaline Phosphatase, S 108 [iU]/L (Normal) Range: 39-117 Bilirubin, Direct 0.20 mg/dL (Normal) Range: 0.00-0.40 Bilirubin, Total 0.7 mg/dL (Normal) Range: 0.0-1.2 Albumin, Serum 3.8 g/dL (Normal) Range: 3.5-4.8 Protein, Total, Serum 8.0 g/dL (Normal) Range: 6.0-8.5 4-Zeq-323601:41 Lipid Panel (20250) Comments: REpeat December 2016; PATIENT WAS FASTINGPERFORMED BY: [employer]6370 [facility] [id number] LDL/HDL Ratio 2.2 {ratio_units} (Normal) Range: 0.0-3.2 Comments: LDL/HDL Ratio Men Women 1/2 Avg.Risk 1.0 1.5 Av g.Risk 3.6 3.2 2X Avg.Risk 6.2 5.0 3X Avg.Risk 8.0 6.1 LDL Cholesterol Calc 97 mg/dL (Normal) Range: 0-99 VLDL Cholesterol Damon 28 mg/dL (Normal) Range: 5-40 HDL Cholesterol 44 mg/dL (Normal) Triglycerides 138 mg/dL (Normal) Range: 0-149 Cholesterol, Total 169 mg/dL (Normal) Range: 100-199 :41 HEPATIC FUNCTION PANEL Comments: December 2016; PATIENT WAS FASTINGPERFORMED BY: [facility]andoSaint [facility] TownshipFwzkcz7552 [facility] [id number] (87857) ALT (SGPT) 25 [iU]/L (Normal) Range: 0-32 AST (SGOT) 45 [iU]/L (Abnormal) Range: 0-40 Alkaline Phosphatase, S 120 [iU]/L (Abnormal) Range: 39-117 Bilirubin, Direct 0.18 mg/dL (Normal) Range: 0.00-0.40 Bilirubin, Total 0.6 mg/dL (Normal) Range: 0.0-1.2 Albumin, Serum 3.8 g/dL (Normal) Range: 3.5-4.8 Protein, Total, Serum 7.8 g/dL (Normal) Range: 6.0-8.5 :42 HgA1C , Office (11158) HgA1C , Office 5.1 % (Normal) Range: 4.6 - 7.1 56-Lcj-161237:42 Blood Glucose , Office (64484) Blood Glucose , Office 101 (Normal) :08 TSH (96921) Comments: PATIENT WAS FASTINGPERFORMED BY: [facility]6370 [facility] [id number] TSH 2.490 {uIU/mL} (Normal) Range: 0.450-4.500 86-Sri-342741:08 METABOLIC PANEL, COMPREHENSIVE Comments: PATIENT WAS FASTINGPERFORMED BY: [facility]6370 [facility] [id number] (03003) ALT (SGPT) 35 [iU]/L (Abnormal) Range: 0-32 AST (SGOT) 63 [iU]/L (Abnormal) Range: 0-40 Alkaline Phosphatase, S 147 [iU]/L (Abnormal) Range: 39-117 Bilirubin, Total 0.8 mg/dL (Normal) Range: 0.0-1.2 A/G Ratio 0.9 (Abnormal) Range: 1.2-2.2 Globulin, Total 4.1 g/dL (Normal) Range: 1.5-4.5 Albumin, Serum 3.5 g/dL (Normal) Range: 3.5-4.8 Protein, Total, Serum 7.6 g/dL (Normal) Range: 6.0-8.5 Calcium, Serum 9.8 mg/dL (Normal) Range: 8.7-10.3 Carbon Dioxide, Total 24 mmol/L (Normal) Range: 18-29 Chloride, Serum 102 mmol/L (Normal) Range: 96-106 Potassium, Serum 4.9 mmol/L (Normal) Range: 3.5-5.2 Sodium, Serum 141 mmol/L (Normal) Range: 134-144 BUN/Creatinine Ratio 23 (Normal) Range: 12-28 eGFR If Africn Am 83 mL/min/1.73 (Normal) eGFR If NonAfricn Am 72 mL/min/1.73 (Normal) Creatinine, Serum 0.83 mg/dL (Normal) Range: 0.57-1.00 BUN 19 mg/dL (Normal) Range: 8-27 Glucose, Serum 88 mg/dL (Normal) Range: 65-99 :08 LIPID PANEL (46645) Comments: PATIENT WAS FASTINGPERFORMED BY: [facility]6370 [facility] [id number] LDL/HDL Ratio 4.2 {ratio_units} (Abnormal) Range: 0.0-3.2 Comments: LDL/HDL Ratio Men Women 1/2 Avg.Risk 1.0 1.5 Av g.Risk 3.6 3.2 2X Avg.Risk 6.2 5.0 3X Avg.Risk 8.0 6.1 LDL Cholesterol Calc 152 mg/dL (Abnormal) Range: 0-99 VLDL Cholesterol Damon 36 mg/dL (Normal) Range: 5-40 HDL Cholesterol 36 mg/dL (Abnormal) Triglycerides 180 mg/dL (Abnormal) Range: 0-149 Cholesterol, Total 224 mg/dL (Abnormal) Range: 100-199 25-Hzh-099992:08 CBC with auto diff (01669) Comments: PATIENT WAS FASTINGPERFORMED BY: [facility]CoSaint [facility] Bo[facility] TownshipPxxvoi1888 [facility] [id number] Hematology Comments: Note: (Normal) Comments: Verified by microscopic examination. Immature Grans (Abs) 0.0 {x10E3/uL} (Normal) Range: 0.0-0.1 Immature Granulocytes 0 % (Normal) Baso (Absolute) 0.0 {x10E3/uL} (Normal) Range: 0.0-0.2 Eos (Absolute) 0.1 {x10E3/uL} (Normal) Range: 0.0-0.4 Monocytes(Absolute) 0.5 {x10E3/uL} (Normal) Range: 0.1-0.9 Lymphs (Absolute) 1.8 {x10E3/uL} (Normal) Range: 0.7-3.1 Neutrophils (Absolute) 3.0 {x10E3/uL} (Normal) Range: 1.4-7.0 Basos 1 % (Normal) Eos 2 % (Normal) Monocytes 9 % (Normal) Lymphs 34 % (Normal) Neutrophils 54 % (Normal) Platelets 92 {x10E3/uL} (Abnormal) Range: 150-379 Comments: Platelet count verified by examination of peripheral blood smear. RDW 14.3 % (Normal) Range: 12.3-15.4 MCHC 33.2 g/dL (Normal) Range: 31.5-35.7 MCH 31.7 pg (Normal) Range: 26.6-33.0 MCV 95 fL (Normal) Range: 79-97 Hematocrit 36.4 % (Normal) Range: 34.0-46.6 Hemoglobin 12.1 g/dL (Normal) Range: 11.1-15.9 RBC 3.82 {x10E6/uL} (Normal) Range: 3.77-5.28 WBC 5.4 {x10E3/uL} (Normal) Range: 3.4-10.8 3-Sct-877212:01 HgA1C , Office (90477) HgA1C , Office 5.3 % (Normal) Range: 4.6 - 7.1 2-Jpd-085212:01 Blood Glucose , Office (65587) Blood Glucose , Office 107 (Normal) 47-Qji-673333:13 URIC ACID BLOOD (46494) Comments: PATIENT NOT FASTINGPERFORMED BY: [facility]Tr[facility]6370 [facility] [id number] Uric Acid, Serum 4.7 mg/dL (Normal) Range: 2.5-7.1 Comments: Therapeutic target for gout patients: <6.0 :44 HgA1C , Office (21635) HgA1C , Office 5.5 % (Normal) Range: 4.6 - 7.1 :44 Blood Glucose , Office (80809) Blood Glucose , Office 82 (Normal) 27-Hkc-561527:46 Lipid Panel (25695) Comments: PATIENT WAS FASTINGPERFORMED BY: [facility]6370 [facility] [id number] LDL/HDL Ratio 2.3 {ratio_units} (Normal) Range: 0.0-3.2 Comments: LDL/HDL Ratio Men Women 1/2 Avg.Risk 1.0 1.5 Av g.Risk 3.6 3.2 2X Avg.Risk 6.2 5.0 3X Avg.Risk 8.0 6.1 LDL Cholesterol Calc 82 mg/dL (Normal) Range: 0-99 VLDL Cholesterol Damon 33 mg/dL (Normal) Range: 5-40 HDL Cholesterol 35 mg/dL (Abnormal) Comments: According to ATP-III Guidelines, HDL-C >59 mg/dL is considered anegative risk factor for CHD. Triglycerides 164 mg/dL (Abnormal) Range: 0-149 Cholesterol, Total 150 mg/dL (Normal) Range: 100-199 07-Cnq-632084:46 TSH (43673) Comments: PATIENT WAS FASTINGPERFORMED BY: [facility]TalkTr[facility]6370 [facility] [id number] TSH 2.880 {uIU/mL} (Normal) Range: 0.450-4.500 12-Zpk-182001:46 CBC, Platelets & Auto Diff Comments: PATIENT WAS FASTINGPERFORMED BY: [facility]TalkTr[facility]6370 [facility] [id number] (46659) Immature Grans (Abs) 0.0 {x10E3/uL} (Normal) Range: 0.0-0.1 Immature Granulocytes 0 % (Normal) Baso (Absolute) 0.0 {x10E3/uL} (Normal) Range: 0.0-0.2 Eos (Absolute) 0.1 {x10E3/uL} (Normal) Range: 0.0-0.4 Monocytes(Absolute) 0.3 {x10E3/uL} (Normal) Range: 0.1-0.9 Lymphs (Absolute) 1.3 {x10E3/uL} (Normal) Range: 0.7-3.1 Neutrophils (Absolute) 2.5 {x10E3/uL} (Normal) Range: 1.4-7.0 Basos 1 % (Normal) Eos 2 % (Normal) Monocytes 7 % (Normal) Lymphs 31 % (Normal) Neutrophils 59 % (Normal) Platelets 101 {x10E3/uL} (Abnormal) Range: 150-379 RDW 14.5 % (Normal) Range: 12.3-15.4 MCHC 32.1 g/dL (Normal) Range: 31.5-35.7 MCH 31.8 pg (Normal) Range: 26.6-33.0 MCV 99 fL (Abnormal) Range: 79-97 Hematocrit 39.3 % (Normal) Range: 34.0-46.6 Hemoglobin 12.6 g/dL (Normal) Range: 11.1-15.9 RBC 3.96 {x10E6/uL} (Normal) Range: 3.77-5.28 WBC 4.2 {x10E3/uL} (Normal) Range: 3.4-10.8 20-Utp-137757:46 Metabolic Panel, Comprehensive Comments: PATIENT WAS FASTINGPERFORMED BY: [facility]CoSaint [facility] TownshipJidhaz3515 [facility] [id number] (20717) ALT (SGPT) 29 [iU]/L (Normal) Range: 0-32 AST (SGOT) 60 [iU]/L (Abnormal) Range: 0-40 Alkaline Phosphatase, S 177 [iU]/L (Abnormal) Range: 39-117 Bilirubin, Total 0.5 mg/dL (Normal) Range: 0.0-1.2 A/G Ratio 1.0 (Abnormal) Range: 1.1-2.5 Globulin, Total 3.7 g/dL (Normal) Range: 1.5-4.5 Albumin, Serum 3.8 g/dL (Normal) Range: 3.6-4.8 Protein, Total, Serum 7.5 g/dL (Normal) Range: 6.0-8.5 Calcium, Serum 9.8 mg/dL (Normal) Range: 8.7-10.3 Carbon Dioxide, Total 23 mmol/L (Normal) Range: 18-29 Chloride, Serum 100 mmol/L (Normal) Range: 97-108 Potassium, Serum 4.5 mmol/L (Normal) Range: 3.5-5.2 Sodium, Serum 142 mmol/L (Normal) Range: 134-144 BUN/Creatinine Ratio 19 (Normal) Range: 11-26 eGFR If Africn Am 76 mL/min/1.73 (Normal) eGFR If NonAfricn Am 66 mL/min/1.73 (Normal) Creatinine, Serum 0.89 mg/dL (Normal) Range: 0.57-1.00 BUN 17 mg/dL (Normal) Range: 8-27 Glucose, Serum 95 mg/dL (Normal) Range: 65-99 [id number] CALCIFEDIOL ([id number]) Comments: PATIENT WAS FASTINGPERFORMED BY: [email or web address] [place] [id number] Vitamin D, 25-Hydroxy 64.0 ng/mL (Normal) Range: 30.0-100.0 Comments: Vitamin D deficiency has been defined by the [employer] [employer] and an Endocrine Society practice guideline as alevel of serum 25-OH vitamin D less than 20 ng/mL (1,2).The Endocrine Society went on to further define vitamin Dinsufficiency as a level between 21 and 29 ng/mL (2).1. IOM ([employer]). 2010. Dietary reference intakes for calcium and D. [place]: The National Academies Press.2. Rebeca MF, Catrina NC, Rhonda HALL, et al. Evaluation, treatment, and prevention of vitamin D deficiency: an Endocrine Society clinical practice guideline. JCEM. 2010; 96(7):1911-30. [id number] MICROALBUMIN: CREATININE RATIO Comments: PATIENT NOT FASTINGPERFORMED BY: [facility] [id number] ([id number]) AND ([id number]) Microalb/Creat Ratio <9.5 {mg/g_creat} (Normal) Range: 0.0-30.0 Microalbumin, Urine <3.0 ug/mL (Normal) Creatinine, Urine 31.6 mg/dL (Normal) :15 URINALYSIS ([id number]) Comments: PATIENT NOT FASTINGPERFORMED BY: [employer] [facility] [id number] Information: [id number] Microscopic Examination MICNIP (Normal) Comments: Microscopic not indicated and not performed. Nitrite, Urine Negative (Normal) Urobilinogen,Semi-Qn 0.2 mg/dL (Normal) Range: 0.2-1.0 Bilirubin Negative (Normal) Occult Blood Negative (Normal) Ketones Negative (Normal) Glucose Negative (Normal) Protein Negative (Normal) WBC Esterase Negative (Normal) Appearance Clear (Normal) Urine-Color Yellow (Normal) pH 6.0 (Normal) Range: 5.0-7.5 Specific [place] 1.012 (Normal) Range: 1.005-1.030 :39 Blood Glucose , Office (31449) Blood Glucose , Office 116 (Normal) :35 HgA1C , Office (78082) HgA1C , Office 5.7 % (Normal) Range: 4.6 - 7.1 :55 HgA1C , Office (33313) HgA1C , Office 6.2 % (Normal) Range: 4.6 - 7.1 40-Fje-151085:31 Microscopic Examination Comments: PATIENT WAS FASTINGPERFORMED BY: [employer] Rhmfle7519 [facility] [id number] Bacteria None seen (Normal) Mucus Threads Present (Normal) Epithelial Cells (non renal) 0-10 {/hpf} (Normal) Range: 0 - 10 RBC 0-2 {/hpf} (Normal) Range: 0 - 2 WBC 0-5 {/hpf} (Normal) Range: 0 - 5 :31 URINALYSIS, W/ MICRO (86356) Comments: PATIENT WAS FASTINGPERFORMED BY: [facility]6370 [facility] [id number] Microscopic Examination See below: (Normal) Comments: Microscopic was indicated and was performed. Microscopic Examination MICRON (Normal) Comments: Microscopic follows if indicated. Nitrite, Urine Negative (Normal) Urobilinogen,Semi-Qn 0.2 mg/dL (Normal) Range: 0.2-1.0 Bilirubin Negative (Normal) Occult Blood Negative (Normal) Ketones Negative (Normal) Glucose Negative (Normal) Protein Negative (Normal) WBC Esterase Negative (Normal) Appearance Clear (Normal) Urine-Color Yellow (Normal) pH 5.5 (Normal) Range: 5.0-7.5 Specific [place] 1.022 (Normal) Range: 1.005-1.030 15-Xps-972286:31 METABOLIC PANEL, COMPREHENSIVE Comments: PATIENT WAS FASTINGPERFORMED BY: KORIN [facility]6370 [facility] [id number] (58930) ALT (SGPT) 29 [iU]/L (Normal) Range: 0-32 AST (SGOT) 37 [iU]/L (Normal) Range: 0-40 Alkaline Phosphatase, S 125 [iU]/L (Abnormal) Range: 39-117 Bilirubin, Total 0.4 mg/dL (Normal) Range: 0.0-1.2 A/G Ratio 1.1 (Normal) Range: 1.1-2.5 Globulin, Total 3.5 g/dL (Normal) Range: 1.5-4.5 Albumin, Serum 3.8 g/dL (Normal) Range: 3.6-4.8 Protein, Total, Serum 7.3 g/dL (Normal) Range: 6.0-8.5 Calcium, Serum 9.9 mg/dL (Normal) Range: 8.7-10.3 Carbon Dioxide, Total 23 mmol/L (Normal) Range: 18-29 Chloride, Serum 101 mmol/L (Normal) Range: 97-108 Potassium, Serum 5.1 mmol/L (Normal) Range: 3.5-5.2 Sodium, Serum 141 mmol/L (Normal) Range: 134-144 BUN/Creatinine Ratio 20 (Normal) Range: 11-26 eGFR If Africn Am 88 mL/min/1.73 (Normal) eGFR If NonAfricn Am 77 mL/min/1.73 (Normal) Creatinine, Serum 0.79 mg/dL (Normal) Range: 0.57-1.00 BUN 16 mg/dL (Normal) Range: 8-27 Glucose, Serum 123 mg/dL (Abnormal) Range: 65-99 14-Oal-463765:31 LIPID PANEL (98367) Comments: PATIENT WAS FASTINGPERFORMED BY: LabVouchrSaint Clare's Hospital at Boonton TownshipOtqqxv6010 [facility] [id number] LDL/HDL Ratio 2.7 {ratio_units} (Normal) Range: 0.0-3.2 Comments: LDL/HDL Ratio Men Women 1/2 Avg.Risk 1.0 1.5 Av g.Risk 3.6 3.2 2X Avg.Risk 6.2 5.0 3X Avg.Risk 8.0 6.1 LDL Cholesterol Calc 107 mg/dL (Abnormal) Range: 0-99 VLDL Cholesterol Damon 42 mg/dL (Abnormal) Range: 5-40 HDL Cholesterol 40 mg/dL (Normal) Comments: According to ATP-III Guidelines, HDL-C >59 mg/dL is considered anegative risk factor for CHD. Triglycerides 211 mg/dL (Abnormal) Range: 0-149 Cholesterol, Total 189 mg/dL (Normal) Range: 100-199 33-Hsk-324618:31 CBC with auto diff Comments: PATIENT WAS FASTINGPERFORMED BY: LabCoSaint Clare's Hospital at Boonton TownshipAzuguq7092 [facility] [id number] Information: [id number] (95814) Immature Grans (Abs) 0.0 {x10E3/uL} (Normal) Range: 0.0-0.1 Immature Granulocytes 0 % (Normal) Baso (Absolute) 0.0 {x10E3/uL} (Normal) Range: 0.0-0.2 Eos (Absolute) 0.2 {x10E3/uL} (Normal) Range: 0.0-0.4 Monocytes(Absolute) 0.4 {x10E3/uL} (Normal) Range: 0.1-0.9 Lymphs (Absolute) 2.2 {x10E3/uL} (Normal) Range: 0.7-3.1 Neutrophils (Absolute) 3.1 {x10E3/uL} (Normal) Range: 1.4-7.0 Basos 0 % (Normal) Eos 4 % (Normal) Monocytes 7 % (Normal) Lymphs 37 % (Normal) Neutrophils 52 % (Normal) Platelets 143 {x10E3/uL} (Abnormal) Range: 150-379 RDW 14.2 % (Normal) Range: 12.3-15.4 MCHC 32.5 g/dL (Normal) Range: 31.5-35.7 MCH 31.3 pg (Normal) Range: 26.6-33.0 MCV 96 fL (Normal) Range: 79-97 Hematocrit 42.1 % (Normal) Range: 34.0-46.6 Hemoglobin 13.7 g/dL (Normal) Range: 11.1-15.9 RBC 4.38 {x10E6/uL} (Normal) Range: 3.77-5.28 WBC 6.0 {x10E3/uL} (Normal) Range: 3.4-10.8 :37 Blood Glucose , Office (37434) Blood Glucose , Office 120 (Normal) 50-Bwq-897054:37 HgA1C , Office (77439) HgA1C , Office 6.2 % (Normal) Range: 4.6 - 7.1 99-Uvt-894002:38 GGT (GAMMA GLUTAMYLTRANSFERASE) Comments: PATIENT NOT FASTINGPERFORMED BY: [employer] edo [facility] [id number] Information: [id number] (27197) GGT 181 [iU]/L (Abnormal) Range: 0-60 0-Qbx-268686:28 CALCIUM, IONIZED (40865) Comments: PATIENT WAS FASTINGPERFORMED BY: [employer] edo [facility] [id number] Calcium, Ionized, Serum 5.5 mg/dL (Normal) Range: 4.5-5.6 6-Tow-756956:28 CALCIFIDIOL (85186) VIT D 25 Comments: PATIENT WAS FASTINGPERFORMED BY: [employer] Tcfema7784 [facility] [id number] Vitamin D, 25-Hydroxy 39.8 ng/mL (Normal) Range: 30.0-100.0 Comments: Vitamin D deficiency has been defined by the [place] of[place]icine and an Endocrine Society practice guideline as alevel of serum 25-OH vitamin D less than 20 ng/mL (1,2).The Endocrine Society went on to further define vitamin Dinsufficiency as a level between 21 and 29 ng/mL (2).1. IOM ([place] of Medicine). 2010. Dietary reference intakes for calcium and D. [place]: The National Academies Press.2. Rebeca MF, Catrina CHE, Rhonda HALL, et al. Evaluation, treatment, and prevention of vitamin D deficiency: an Endocrine Society clinical practice guideline. JCEM. 2010; 96(7):1911-30. 3-The-253995:28 METABOLIC PANEL, COMPREHENSIVE Comments: PATIENT WAS FASTINGPERFORMED BY: LabCoSaint Clare's Hospital at Boonton TownshipJbokjm0112 [facility] [id number] (00220) ALT (SGPT) 34 [iU]/L (Abnormal) Range: 0-32 AST (SGOT) 40 [iU]/L (Normal) Range: 0-40 Alkaline Phosphatase, S 112 [iU]/L (Normal) Range: 39-117 Bilirubin, Total 0.5 mg/dL (Normal) Range: 0.0-1.2 A/G Ratio 1.2 (Normal) Range: 1.1-2.5 Globulin, Total 3.3 g/dL (Normal) Range: 1.5-4.5 Albumin, Serum 4.1 g/dL (Normal) Range: 3.6-4.8 Protein, Total, Serum 7.4 g/dL (Normal) Range: 6.0-8.5 Calcium, Serum 10.0 mg/dL (Normal) Range: 8.7-10.3 Carbon Dioxide, Total 23 mmol/L (Normal) Range: 18-29 Chloride, Serum 99 mmol/L (Normal) Range: 97-108 Potassium, Serum 4.8 mmol/L (Normal) Range: 3.5-5.2 Sodium, Serum 140 mmol/L (Normal) Range: 134-144 BUN/Creatinine Ratio 22 (Normal) Range: 11-26 eGFR If Africn Am 92 mL/min/1.73 (Normal) eGFR If NonAfricn Am 80 mL/min/1.73 (Normal) Creatinine, Serum 0.77 mg/dL (Normal) Range: 0.57-1.00 BUN 17 mg/dL (Normal) Range: 8-27 Glucose, Serum 129 mg/dL (Abnormal) Range: 65-99 6-Klu-973122:28 LIPID PANEL (03865) Comments: PATIENT WAS FASTINGPERFORMED BY: CibandoSaint Clare's Hospital at Boonton TownshipFfnerc1379 [facility] [id number]; apt. 12-15 LDL/HDL Ratio 3.4 {ratio_units} (Abnormal) Range: 0.0-3.2 Comments: LDL/HDL Ratio Men Women 1/2 Avg.Risk 1.0 1.5 Av g.Risk 3.6 3.2 2X Avg.Risk 6.2 5.0 3X Avg.Risk 8.0 6.1 LDL Cholesterol Calc 132 mg/dL (Abnormal) Range: 0-99 VLDL Cholesterol Damon 70 mg/dL (Abnormal) Range: 5-40 HDL Cholesterol 39 mg/dL (Abnormal) Comments: According to ATP-III Guidelines, HDL-C >59 mg/dL is considered anegative risk factor for CHD. Triglycerides 351 mg/dL (Abnormal) Range: 0-149 Cholesterol, Total 241 mg/dL (Abnormal) Range: 100-199 8-Dyz-973653:28 CBC with auto diff Comments: PATIENT WAS FASTINGPERFORMED BY: CibandoSaint Clare's Hospital at Boonton TownshipQmtedo5612 [facility] [id number] Information: [id number] (51244) Immature Grans (Abs) 0.0 {x10E3/uL} (Normal) Range: 0.0-0.1 Immature Granulocytes 0 % (Normal) Baso (Absolute) 0.0 {x10E3/uL} (Normal) Range: 0.0-0.2 Eos (Absolute) 0.1 {x10E3/uL} (Normal) Range: 0.0-0.4 Monocytes(Absolute) 0.5 {x10E3/uL} (Normal) Range: 0.1-0.9 Lymphs (Absolute) 2.7 {x10E3/uL} (Normal) Range: 0.7-3.1 Neutrophils (Absolute) 3.9 {x10E3/uL} (Normal) Range: 1.4-7.0 Basos 0 % (Normal) Eos 2 % (Normal) Monocytes 7 % (Normal) Lymphs 37 % (Normal) Neutrophils 54 % (Normal) Platelets 175 {x10E3/uL} (Normal) Range: 150-379 RDW 14.2 % (Normal) Range: 12.3-15.4 MCHC 32.8 g/dL (Normal) Range: 31.5-35.7 MCH 32.3 pg (Normal) Range: 26.6-33.0 MCV 98 fL (Abnormal) Range: 79-97 Hematocrit 43.9 % (Normal) Range: 34.0-46.6 Hemoglobin 14.4 g/dL (Normal) Range: 11.1-15.9 RBC 4.46 {x10E6/uL} (Normal) Range: 3.77-5.28 WBC 7.2 {x10E3/uL} (Normal) Range: 3.4-10.8 :12 HgA1C , Office (79221) HgA1C , Office 6.2 % (Normal) Range: 4.6 - 7.1 Alkaline Phosphatase, 128 [iU]/L Comments: PATIENT WAS FASTINGPERFORMED BY: [facility] [place] [id number] :21 S (Abnormal) Range: 39-117 Calcium, Ionized, 5.4 mg/dL (Normal) Comments: PATIENT WAS FASTINGPERFORMED BY: [facility] [place] [id number] :21 Serum Range: 4.5-5.6 GGT 152 [iU]/L Comments: PATIENT WAS FASTINGPERFORMED BY: [place]ishin [place] [id number] :21 (Abnormal) Range: 0-60 PTH, Intact 58 pg/mL (Normal) Comments: PATIENT WAS FASTINGPERFORMED BY: [facility] [place] [id number] :21 Range: 15-65 Vitamin D, 25-Hydroxy 34.0 ng/mL (Normal) Comments: PATIENT WAS FASTINGPERFORMED BY: [facility]ishFormerly [facility] [id number] Information: [id number] :21 Range: 30.0-100.0 Comments: Vitamin D deficiency has been defined by the [place] ofMedicine and an Endocrine Society practice guideline as alevel of serum 25-OH vitamin D less than 20 ng/mL (1,2).The Endocrine Society went on to further define vitamin Dinsufficiency as a level between 21 and 29 ng/mL (2).1. IOM ([place] of Medicine). 2010. Dietary reference intakes for calcium and D. [place]: The National Academies Press.2. Rebeca MF, Catrina CHE, Rhonda HALL, et al. Evaluation, treatment, and prevention of vitamin D deficiency: an Endocrine Society clinical practice guideline. JCEM. 2010; 96(7):1911-30. :48 HgA1C , Office (81197) HgA1C , Office 6.1 % (Normal) Range: 4.6 - 7.1 :48 Blood Glucose , Office (94308) Blood Glucose , Office 114 (Normal) :18 CBC WITH MANUAL DIFF Comments: PATIENT WAS FASTINGPERFORMED BY: LabCoSaint Clare's Hospital at Bo[facility] TownshipImzpci0220 [facility] [id number] Information: [id number] (75627) Immature Grans (Abs) 0.0 {x10E3/uL} (Normal) Range: 0.0-0.1 Immature Granulocytes 0 % (Normal) Baso (Absolute) 0.0 {x10E3/uL} (Normal) Range: 0.0-0.2 Eos (Absolute) 0.3 {x10E3/uL} (Normal) Range: 0.0-0.4 Monocytes(Absolute) 0.4 {x10E3/uL} (Normal) Range: 0.1-0.9 Lymphs (Absolute) 2.4 {x10E3/uL} (Normal) Range: 0.7-3.1 Neutrophils (Absolute) 3.5 {x10E3/uL} (Normal) Range: 1.4-7.0 Basos 1 % (Normal) Eos 4 % (Normal) Monocytes 7 % (Normal) Lymphs 36 % (Normal) Neutrophils 52 % (Normal) Platelets 165 {x10E3/uL} (Normal) Range: 150-379 RDW 14.2 % (Normal) Range: 12.3-15.4 MCHC 32.8 g/dL (Normal) Range: 31.5-35.7 MCH 31.7 pg (Normal) Range: 26.6-33.0 MCV 97 fL (Normal) Range: 79-97 Hematocrit 42.4 % (Normal) Range: 34.0-46.6 Hemoglobin 13.9 g/dL (Normal) Range: 11.1-15.9 RBC 4.39 {x10E6/uL} (Normal) Range: 3.77-5.28 WBC 6.6 {x10E3/uL} (Normal) Range: 3.4-10.8 :18 CALCIFIDIOL (55323) VIT D 25 Comments: PATIENT WAS FASTINGPERFORMED BY: NeedishFormerly [facility] [id number] Vitamin D, 25-Hydroxy 43.6 ng/mL (Normal) Range: 30.0-100.0 Comments: Vitamin D deficiency has been defined by the [place] ofGal[facility] Community Hospitalcine and an Endocrine Society practice guideline as alevel of serum 25-OH vitamin D less than 20 ng/mL (1,2).The Endocrine Society went on to further define vitamin Dinsufficiency as a level between 21 and 29 ng/mL (2).1. IOM ([place] of Medicine). 2010. Dietary reference intakes for calcium and D. [place]: The National Academies Press.2. Rebeca MF, Catrina NC, Rhonda HALL, et al. Evaluation, treatment, and prevention of vitamin D deficiency: an Endocrine Society clinical practice guideline. JCEM. 2010; 96(7):1911-30. :18 MICROALBUMIN: CREATININE RATIO Comments: PATIENT WAS FASTINGPERFORMED BY: [employer] Carohj1280 [facility] [id number] (13775) AND (79075) Microalb/Creat Ratio 4.0 {mg/g_creat} (Normal) Range: 0.0-30.0 Microalbumin, Urine 4.0 ug/mL (Normal) Range: 0.0-17.0 Creatinine, Urine 98.8 mg/dL (Normal) Range: 15.0-278.0 :18 Metabolic Panel, Comprehensive Comments: PATIENT WAS FASTINGPERFORMED BY: KORIN [employer] Yzfngk9203 [facility] [id number] (64916) ALT (SGPT) 20 [iU]/L (Normal) Range: 0-32 AST (SGOT) 28 [iU]/L (Normal) Range: 0-40 Alkaline Phosphatase, S 108 [iU]/L (Normal) Range: 39-117 Bilirubin, Total 0.6 mg/dL (Normal) Range: 0.0-1.2 A/G Ratio 1.6 (Normal) Range: 1.1-2.5 Globulin, Total 2.6 g/dL (Normal) Range: 1.5-4.5 Albumin, Serum 4.2 g/dL (Normal) Range: 3.6-4.8 Protein, Total, Serum 6.8 g/dL (Normal) Range: 6.0-8.5 Calcium, Serum 9.8 mg/dL (Normal) Range: 8.7-10.3 Carbon Dioxide, Total 22 mmol/L (Normal) Range: 18-29 Chloride, Serum 101 mmol/L (Normal) Range: 97-108 Potassium, Serum 4.3 mmol/L (Normal) Range: 3.5-5.2 Sodium, Serum 140 mmol/L (Normal) Range: 134-144 BUN/Creatinine Ratio 23 (Normal) Range: 11-26 eGFR If Africn Am 96 mL/min/1.73 (Normal) eGFR If NonAfricn Am 84 mL/min/1.73 (Normal) Creatinine, Serum 0.74 mg/dL (Normal) Range: 0.57-1.00 BUN 17 mg/dL (Normal) Range: 8-27 Glucose, Serum 106 mg/dL (Abnormal) Range: 65-99 2-Bfw-510263:18 Lipid Panel (57364) Comments: PATIENT WAS FASTINGPERFORMED BY: CibandoSaint Clare's Hospital at Boont[facility] TownshipMlrodr0270 [facility] [id number] LDL/HDL Ratio 3.0 {ratio_units} (Normal) Range: 0.0-3.2 Comments: LDL/HDL Ratio Men Women 1/2 Avg.Risk 1.0 1.5 Av g.Risk 3.6 3.2 2X Avg.Risk 6.2 5.0 3X Avg.Risk 8.0 6.1 LDL Cholesterol Calc 118 mg/dL (Abnormal) Range: 0-99 VLDL Cholesterol Damon 46 mg/dL (Abnormal) Range: 5-40 HDL Cholesterol 40 mg/dL (Normal) Comments: According to ATP-III Guidelines, HDL-C >59 mg/dL is considered anegative risk factor for CHD. Triglycerides 231 mg/dL (Abnormal) Range: 0-149 Cholesterol, Total 204 mg/dL (Abnormal) Range: 100-199 34-Ykz-171865:12 HgA1C , Office (51561) HgA1C , Office 5.9 % (Normal) Range: 4.6 - 7.1 :12 Blood Glucose , Office (98093) Blood Glucose , Office 91 (Normal) 04-Xtc-960791:48 Alkaline Phosphatase Comments: Test performed at:[facility] [address] [place] [address] ALK P 105 U/L (Normal) Range: 50-136 21-Tvi-559550:48 Calcium Ionized Comments: Test performed at:[facility] [address] [place] [address] [place] 4804 5.7 mg/dL (Abnormal) Range: 4.5-5.6 Comments: Performed at: [facility] [id number] Director: Walter Nayak PhD, Phone: [phone] 56-Xgn-092757:48 GGTP 130 U/L (Abnormal) Comments: Test performed at:[facility] [address] [place] [address] Range: 5-55 64-Qii-073519:48 PTH,INTACT Comments: Test performed at:[facility] [address] [place] [address] PTH,Intact 65 pg/mL (Normal) Range: 14-72 27-Hpq-981916:48 Vitamin D,25 Hydroxy Comments: Test performed at:[facility] [address] [place] [address] Vitamin D 25-OH 46.3 ng/mL (Normal) Comments: Vitamin D 25(OH) Status Range Deficiency <20 ng/mL (50nmol/L) Insuffciency 20 - 30 ng/mL (50 - 75 nmol/L) Sufficiency 30 - 100 ng/mL (75 - 250 nmol/L) Toxicity >100 ng/mL (>250 nmol/L) :29 HgA1C , Office (25683) HgA1C , Office 6.6 % (Normal) Range: 4.6 - 7.1 :29 Blood Glucose , Office (68624) Blood Glucose , Office 144 (Normal) 71-Xpy-525128:22 Microscopic Examination Comments: PATIENT WAS FASTINGPERFORMED BY: EnhanCV [facility] [id number] Bacteria None seen (Normal) Mucus Threads Present (Normal) Cast Type Hyaline casts (Normal) Casts Present {/lpf} (Abnormal) Epithelial Cells (non renal) 0-10 {/hpf} (Normal) Range: 0 - 10 RBC 0-2 {/hpf} (Normal) Range: 0 - 2 WBC 0-5 {/hpf} (Normal) Range: 0 - 5 :22 URINALYSIS, W/ MICRO (09596) Comments: PATIENT WAS FASTINGPERFORMED BY: [employer]CV [facility] [id number] Microscopic Examination See below: (Normal) Comments: Microscopic was indicated and was performed. Microscopic Examination MICRON (Normal) Comments: Microscopic follows if indicated. Nitrite, Urine Negative (Normal) Bilirubin Negative (Normal) Urobilinogen,Semi-Qn 0.2 mg/dL (Normal) Range: 0.0-1.9 Occult Blood Negative (Normal) Ketones Negative (Normal) Glucose Negative (Normal) Protein Trace (Normal) WBC Esterase Negative (Normal) Appearance Clear (Normal) Urine-Color Yellow (Normal) pH 5.5 (Normal) Range: 5.0-7.5 Specific [place] 1.024 (Normal) Range: 1.005-1.030 :22 METABOLIC PANEL, COMPREHENSIVE Comments: PATIENT WAS FASTINGPERFORMED BY: EnhanCV [facility] [id number] (00127) ALT (SGPT) 26 [iU]/L (Normal) Range: 0-32 AST (SGOT) 32 [iU]/L (Normal) Range: 0-40 Alkaline Phosphatase, S 122 [iU]/L (Abnormal) Range: 39-117 Bilirubin, Total 0.6 mg/dL (Normal) Range: 0.0-1.2 A/G Ratio 1.6 (Normal) Range: 1.1-2.5 Globulin, Total 2.6 g/dL (Normal) Range: 1.5-4.5 Albumin, Serum 4.2 g/dL (Normal) Range: 3.6-4.8 Protein, Total, Serum 6.8 g/dL (Normal) Range: 6.0-8.5 Calcium, Serum 10.6 mg/dL (Abnormal) Range: 8.6-10.2 Carbon Dioxide, Total 24 mmol/L (Normal) Range: 18-29 Chloride, Serum 100 mmol/L (Normal) Range: 97-108 Potassium, Serum 5.1 mmol/L (Normal) Range: 3.5-5.2 Sodium, Serum 141 mmol/L (Normal) Range: 134-144 BUN/Creatinine Ratio 24 (Normal) Range: 11-26 eGFR If Africn Am 88 mL/min/1.73 (Normal) eGFR If NonAfricn Am 77 mL/min/1.73 (Normal) Creatinine, Serum 0.80 mg/dL (Normal) Range: 0.57-1.00 BUN 19 mg/dL (Normal) Range: 8-27 Glucose, Serum 120 mg/dL (Abnormal) Range: 65-99 55-Yso-486060:22 LIPID PANEL (10504) Comments: PATIENT WAS FASTINGPERFORMED BY: [facility] Zqixqj4717 [facility] [id number] LDL/HDL Ratio 3.2 {ratio_units} (Normal) Range: 0.0-3.2 LDL Cholesterol Calc 124 mg/dL (Abnormal) Range: 0-99 VLDL Cholesterol Damon 57 mg/dL (Abnormal) Range: 5-40 HDL Cholesterol 39 mg/dL (Abnormal) Comments: According to ATP-III Guidelines, HDL-C >59 mg/dL is considered anegative risk factor for CHD. Triglycerides 283 mg/dL (Abnormal) Range: 0-149 Cholesterol, Total 220 mg/dL (Abnormal) Range: 100-199 87-Quj-068423:22 CBC WITH MANUAL DIFF Comments: PATIENT WAS FASTINGPERFORMED BY: KORIN LabCoTohatchi Health Care CenterYmanlj5618 [facility] [id number] Information: [id number] (58487) Immature Grans (Abs) 0.0 {x10E3/uL} (Normal) Range: 0.0-0.1 Immature Granulocytes 0 % (Normal) Range: 0-2 Baso (Absolute) 0.0 {x10E3/uL} (Normal) Range: 0.0-0.2 Eos (Absolute) 0.2 {x10E3/uL} (Normal) Range: 0.0-0.4 Monocytes(Absolute) 0.5 {x10E3/uL} (Normal) Range: 0.1-0.9 Lymphs (Absolute) 2.1 {x10E3/uL} (Normal) Range: 0.7-3.1 Neutrophils (Absolute) 4.4 {x10E3/uL} (Normal) Range: 1.4-7.0 Basos 1 % (Normal) Range: 0-3 Eos 3 % (Normal) Range: 0-5 Monocytes 7 % (Normal) Range: 4-12 Lymphs 29 % (Normal) Range: 14-46 Neutrophils 60 % (Normal) Range: 40-74 Platelets 164 {x10E3/uL} (Normal) Range: 150-379 RDW 14.6 % (Normal) Range: 12.3-15.4 MCHC 32.3 g/dL (Normal) Range: 31.5-35.7 MCH 31.2 pg (Normal) Range: 26.6-33.0 MCV 97 fL (Normal) Range: 79-97 Hematocrit 41.5 % (Normal) Range: 34.0-46.6 Hemoglobin 13.4 g/dL (Normal) Range: 11.1-15.9 RBC 4.29 {x10E6/uL} (Normal) Range: 3.77-5.28 WBC 7.3 {x10E3/uL} (Normal) Range: 3.4-10.8 15-Utj-450237:33 Blood Glucose , Office (53985) Blood Glucose , Office 122 (Normal) 20-Qbr-904584:33 HgA1C , Office (41479) HgA1C , Office 6.4 % (Normal) Range: 4.6 - 7.1 78-Ihl-877955:17 CALCIFIDIOL (41627) VIT D Comments: PATIENT NOT FASTINGPERFORMED BY: [employer] Drbrag6243 [facility] [id number] BY: [employer] [id number] 25 Vitamin D, 25-Hydroxy 45.1 ng/mL (Normal) Range: 30.0-100.0 Comments: Vitamin D deficiency has been defined by the [place] ofGal[facility] Hospitalcine and an Endocrine Society practice guideline as alevel of serum 25-OH vitamin D less than 20 ng/mL (1,2).The Endocrine Society went on to further define vitamin Dinsufficiency as a level between 21 and 29 ng/mL (2).1. IOM ([place] of Medicine). 2010. Dietary reference intakes for calcium and D. [place]: The National Academies Press.2. Rebeca MF, Catrina CHE, Rhonda HALL, et al. Evaluation, treatment, and prevention of vitamin D deficiency: an Endocrine Society clinical practice guideline. JCEM. 2010; 96(7):1911-30. 15-Qgb-202964:17 COMPLEMENT, TOTAL (CH50) Comments: all labs to Dr. [place]; PATIENT NOT FASTINGPERFORMED BY: [facility]6370 [facility] [id number] BY: [employer] [id number] (36951) Complement, Total (CH50) >64 U/mL (Abnormal) Range: 22-60 84-Ijz-774520:17 COMPLEMENT C4 (75382) Comments: PATIENT NOT FASTINGPERFORMED BY: [facility] LabVouchrrp Pmnbts6042 [facility] [id number] BY: [address] [id number] Complement C4, Serum 28 {mg/dL_Adult} (Normal) Range: 9-36 64-Fdx-902579:17 COMPLEMENT C3 (92934) Comments: PATIENT NOT FASTINGPERFORMED BY: [place]TalkN[place] 8781570 [facility] [id number] BY: [address] [id number] Complement C3, Serum 122 {mg/dL_Adult} (Normal) Range: 90-180 01-Ibr-501781:17 C-Reactive Protein Comments: PATIENT NOT FASTINGPERFORMED BY: [place]TalkN[place] 8781570 [facility] [id number] BY: [address] [id number] (80713) C-Reactive Protein, Quant 3.6 mg/L (Normal) Range: 0.0-4.9 56-Vwi-649547:17 Systemic Lupus Profile Comments: PATIENT NOT FASTINGPERFORMED BY: [address] [id number] BY: [address] [id number] Information: [id number] ([id number]) Anti-DNA (DS) Ab Qn <1 {IU/mL} (Normal) Range: 0-9 Comments: Negative <5 Equivocal 5 - 9 Positive >9 Sjogren's Anti-SS-B <0.2 {AI} (Normal) Range: 0.0-0.9 Sjogren's Anti-SS-A <0.2 {AI} (Normal) Range: 0.0-0.9 Antichromatin Antibodies <0.2 {AI} (Normal) Range: 0.0-0.9 RA Latex Turbid. 12.3 {IU/mL} (Normal) Range: 0.0-13.9 [place] Antibodies <0.2 {AI} (Normal) Range: 0.0-0.9 PROCESS SPECIALIST Antibodies 0.7 {AI} (Normal) Range: 0.0-0.9 90-Nll-464396:17 PROLACTIN ([id number]) Comments: PATIENT NOT FASTINGPERFORMED BY: [address] [id number] BY: [address] [id number] Prolactin 8.7 ng/mL (Normal) Range: 4.8-23.3 49-Ouy-177259:17 T3, FREE (TRIDOTHYRONINE) Comments: PATIENT NOT FASTINGPERFORMED BY: [place] [id number] [facility] [id number] BY: [address] [id number] ([id number]) Triiodothyronine,Free,Serum 2.8 pg/mL (Normal) Range: 2.0-4.4 65-Doc-283316:17 T4, FREE (THYROXINE) Comments: PATIENT NOT FASTINGPERFORMED BY: [place] [id number] [facility] [id number] BY: [place] [id number] ([id number]) T4,Free(Direct) 0.90 ng/dL (Normal) Range: 0.82-1.77 94-Tea-814477:17 TSH (47547) Comments: PATIENT NOT FASTINGPERFORMED BY: [place] [id number] [facility] [id number] BY: [address] [id number] 2.260 {uIU/mL} (Normal) Range: 0.450-4.500 10-Jeq-417008:17 TESTOSTERONE FREE (26627) Comments: PATIENT NOT FASTINGPERFORMED BY: [place] [id number] [facility] [id number] BY: [address] [id number] Free Testosterone(Direct) 0.3 pg/mL (Normal) Range: 0.0-1.8 53-Cqu-622244:17 DHEA-S (DEHYDROEPIANDROSTERONE Comments: PATIENT NOT FASTINGPERFORMED BY: [place] [id number] [facility] [id number] BY: [facility] [address] [id number] SULFATE) (61632) DHEA-Sulfate 98.3 ug/dL (Normal) Range: 20.4-186.6 20-Dgd-303157:09 HgA1C , Office (99140) HgA1C , Office 5.8 % (Normal) Range: 4.6 - 7.1 :59 CMP GAP 4 (Abnormal) Range: 5-15 CO2 31.0 mmol/L (Normal) Range: 21.0-32.0 CL 102 mmol/L (Normal) Range: 98-107 K 4.5 mmol/L (Normal) Range: 3.5-5.1 NA 137 mmol/L (Normal) Range: 136-145 BIT 0.50 mg/dL (Normal) Range: 0.00-1.00 ALT 33 U/L (Normal) Range: 12-78 ALK 122 U/L (Normal) Range: 50-136 AST 28 U/L (Normal) Range: 15-37 CA 9.7 mg/dL (Normal) Range: 8.5-10.1 AG 0.9 {RATIO} (Normal) Range: 0.9-2.4 GLOB 4.0 g/dL (Normal) Range: 2.7-4.2 ALB 3.6 g/dL (Normal) Range: 3.4-5.0 TPROT 7.6 g/dL (Normal) Range: 6.4-8.2 BC 21.1 {RATIO} (Abnormal) Range: 10-20 GFRAA 81 mL/min (Normal) GFR 67 mL/min (Normal) CREAT 0.9 mg/dL (Normal) Range: 0.6-1.0 BUN 19 mg/dL (Abnormal) Range: 7-18 GLU 115 mg/dL (Abnormal) Range: 70-110 Comments: Fasting Glucose result from 110 to <126 mg/dLsuggests IMPAIRED HOMEOSTASIS per A.D.A. criteria. :59 LIPID VLDL 49 mg/dL (Abnormal) Range: 5-40 HDL 34 mg/dL (Abnormal) Comments: Reference RangeHDL <40 mg/dL Low HDL CholesterolHDL >or= 60 mg/dL High HDL Cholesterol LDL 123 mg/dL (Normal) Range: 0-130 CHOL 206 mg/dL (Abnormal) Comments: <200 mg/dL Dxkxxrwei958-973 mg/dL Borderline>240 mg/dL High Risk TRIG 245 mg/dL (Abnormal) Range: 0-199 Comments: Serum Triglycerides Reference IntervalNormal <150 mg/dLBorderline high 150 - 199 mg/dLHigh 200 - 499 mg/ dLVery High > or = 500 mg/dL 78-Iqn-633492:21 METABOLIC PANEL, Comments: PATIENT WAS FASTINGPERFORMED BY: [facility]To[facility] CenterSmsauv2573 [facility] [id number] Information: [id number] COMPREHENSIVE (90473) ALT (SGPT) 19 [iU]/L (Normal) Range: 0-32 AST (SGOT) 23 [iU]/L (Normal) Range: 0-40 Alkaline Phosphatase, S 102 [iU]/L (Normal) Range: 39-117 Bilirubin, Total 0.3 mg/dL (Normal) Range: 0.0-1.2 A/G Ratio 1.4 (Normal) Range: 1.1-2.5 Globulin, Total 3.0 g/dL (Normal) Range: 1.5-4.5 Albumin, Serum 4.2 g/dL (Normal) Range: 3.6-4.8 Protein, Total, Serum 7.2 g/dL (Normal) Range: 6.0-8.5 Calcium, Serum 9.8 mg/dL (Normal) Range: 8.6-10.2 Carbon Dioxide, Total 23 mmol/L (Normal) Range: 19-28 Chloride, Serum 97 mmol/L (Normal) Range: 97-108 Potassium, Serum 4.5 mmol/L (Normal) Range: 3.5-5.2 BUN/Creatinine Ratio 24 (Normal) Range: 11-26 Sodium, Serum 138 mmol/L (Normal) Range: 134-144 eGFR If Africn Am 97 mL/min/1.73 (Normal) eGFR If NonAfricn Am 84 mL/min/1.73 (Normal) Creatinine, Serum 0.74 mg/dL (Normal) Range: 0.57-1.00 BUN 18 mg/dL (Normal) Range: 8-27 Glucose, Serum 128 mg/dL (Abnormal) Range: 65-99 77-Yvs-484012:21 LIPID PANEL (77130) Comments: PATIENT WAS FASTINGPERFORMED BY: [facility] Rnodls8136 [facility] [id number] LDL/HDL Ratio 4.3 {ratio_units} (Abnormal) Range: 0.0-3.2 LDL Cholesterol Calc 173 mg/dL (Abnormal) Range: 0-99 VLDL Cholesterol Damon 53 mg/dL (Abnormal) Range: 5-40 HDL Cholesterol 40 mg/dL (Normal) Comments: According to ATP-III Guidelines, HDL-C >59 mg/dL is considered anegative risk factor for CHD. Triglycerides 266 mg/dL (Abnormal) Range: 0-149 Cholesterol, Total 266 mg/dL (Abnormal) Range: 100-199 Comments: ADDENDA: non-emergent and pt has apt 12/27/13 to review. 11-Gqm-031211:10 Blood Glucose , Office (33625) Blood Glucose , Office 127 (Normal) 05-Lib-737627:10 HgA1C , Office (99645) HgA1C , Office 5.9 % (Normal) Range: 4.6 - 7.1 5-Vrx-568631:43 SOFT TISSUE NECK WITH CONTRAST Radiology Report See Note Comments: PROCEDURE: CT SOFT TISSUE NECK WITH CONTRAST REASON FOR EXAM: Female, 67 years old. Patient has a palpable left- sidedcarotid nodule. RADIATION DOSAGE (If Supplied By Facility): CTDIvol = ( 47.90 ) (Normal) mGy, DLP=( 1537.51 ) mGycm TECHNIQUE: The patient was scanned in a multi-detector CT scanner.Highresolution transaxial imaging was performed following intravenousadministration of 75ml ml of Isovue 3 00 contrast material. Sagittal andcoronal images were reconstructed. COMPARISON: None. FINDINGS:Right parotid gland has a normal appearance. There is a small massl ocatedwithin the lateral aspect of the left parotid gland that measuresapproximately 11 mm in greatest dimension. There is a low attenuationmasswithin the left blue leather setter space located caudal and poste rior to theparotid gland. This is probably palpable. This mass measuresapproximately 1.6 x 1.3 x 1.9 cm in size. There is a second lowattenuation mass located in the left blue leather setter space and posteri or totheparotid that measures approximately 10 mm in size. This appears to haveperipheral enhancement. Normal bilateral parapharyngeal spaces. Normalbilateral carotid spaces. Normal bilateral subling ual and submandibular glands and spaces. Normal visualized nasopharynx. Normal retropharyngeal space. Normalperivertebral space. Normal visualized bilateral faucial tonsils. The visualized tongue,ton guebase and oropharynx are normal. Multiple scattered subcentimeter lymph nodes present throughout the neckdonot appear pathologic. There is no abnormal contrast enhancement. Normal epiglottis, bilat eral vallecula and hypopharynx. The pre-epiglotticand paraglottic adipose spaces are normal. The vocal cords are not wellseen because patient apparently was speaking during the exam and there ismotion artifact. No obvious mass is identified. Normal subglottictrachea. The thyroid has a normal appearance. There are patchy lucencies at thelung apices probably representing small pneumatoceles. There is focalpleural thickening versus subpleural nodule adjacent to the posteriorrightlung apex that measures approximately 7 mm in greatest dimension. Normal visualized paranasal sinuses. There is straig htening of thenormalcervical lordosis. There is narrowing of the C5-6, and C6-7intravertebraldisk spaces. The cervical vertebral bodies have normal height andalignment. There is degenerative arthropa thy at the anteriorarticulationof C1 and the odontoid. Altlanto-axial and atlanto-occipitalrelationshipsare within normal limits. IMPRESSION:1. Two enlarged lymph no stella located within the left blue leather setter spaceadjacent to the left parotid, are probably metastatic.2. Small left-sided parotid mass. This has a nonspecific appearance.3. A small subpleural nodule in t he right upper lobe. Signed:Jayne Barrera M.D.April 03, 2013 at 6:53:53 PM [phone] Signed AM/AM If you are the referring physician and would like to consult with theradiologist who provided this interpretation, please contact Jayne Barrera M.D. at . If this radiologist is unavailable, you will bedirected to another radiologist to assist. If you are a patient with a question regarding this report, pleasecontactyour referring physician directly. Professional Interpretation Provided By: Weesh, Phone , These documents contain lega lly protected and confidential healthinformation intended only for the use of the individual or entity namedabove. If you are not the intended recipient, you are hereby notifiedthatany disclosure, copyi ng, distribution, or other use of these documents isstrictly prohibited. If you have received this information in error,pleasenotify the sender immediately and arrange for the return or destructionofthe se documents. Dictated on 04/03/131852 by Bruce DAI,AggieaTranscribed on 04/03/131855 by ITS IMPORTSign by Jayne Barrera MD on 04/03/131856 Sign by: __ Jayne Barrera MD 52-Lqd-746513:22 LIPID PANEL (73674) Comments: PATIENT WAS FASTINGPERFORMED BY: [employer]70 [facility] [id number] LDL/HDL Ratio 4.7 {ratio_units} (Abnormal) Range: 0.0-3.2 LDL Cholesterol Calc 173 mg/dL (Abnormal) Range: 0-99 HDL Cholesterol 37 mg/dL (Abnormal) Comments: According to ATP-III Guidelines, HDL-C >59 mg/dL is considered anegative risk factor for CHD. VLDL Cholesterol Damon 58 mg/dL (Abnormal) Range: 5-40 Cholesterol, Total 268 mg/dL (Abnormal) Range: 100-199 Triglycerides 288 mg/dL (Abnormal) Range: 0-149 54-Lnv-529987:22 CALCIFIDIOL (79157) VIT D 25 Comments: PATIENT WAS FASTINGPERFORMED BY: [facility]6370 [facility] [id number] Vitamin D, 25-Hydroxy 39.4 ng/mL (Normal) Range: 30.0-100.0 Comments: Vitamin D deficiency has been defined by the [place] of[employer] and an Endocrine Society practice guideline as alevel of serum 25-OH vitamin D less than 20 ng/mL (1,2).The Endocrine Society went on to further define vitamin Dinsufficiency as a level between 21 and 29 ng/mL (2).1. IOM ([place] of [employer]). 2010. Dietary reference intakes for calcium and D. [place]: The National Academies Press.2. Rebeca MF, Catrina CHE, Rhonda HALL, et al. Evaluation, treatment, and prevention of vitamin D deficiency: an Endocrine Society clinical practice guideline. JCEM. 2010; 96(7):1911-30. 73-Xqs-205486:22 Metabolic Panel, Basic Comments: PATIENT WAS FASTINGPERFORMED BY: [facility]6370 [facility] [id number] Information: [id number] (32265) Calcium, Serum 10.3 mg/dL (Abnormal) Range: 8.6-10.2 Carbon Dioxide, Total 25 mmol/L (Normal) Range: 19-28 Chloride, Serum 103 mmol/L (Normal) Range: 97-108 Potassium, Serum 4.7 mmol/L (Normal) Range: 3.5-5.2 Sodium, Serum 142 mmol/L (Normal) Range: 134-144 BUN/Creatinine Ratio 22 (Normal) Range: 11-26 eGFR If Africn Am 90 mL/min/1.73 (Normal) eGFR If NonAfricn Am 78 mL/min/1.73 (Normal) BUN 17 mg/dL (Normal) Range: 8-27 Creatinine, Serum 0.79 mg/dL (Normal) Range: 0.57-1.00 Glucose, Serum 114 mg/dL (Abnormal) Range: 65-99 08-Gpy-048037:22 Uric Acid Blood (56433) Comments: PATIENT WAS FASTINGPERFORMED BY: [facility]6370 [facility] [id number] Uric Acid, Serum 5.4 mg/dL (Normal) Range: 2.5-7.1 Comments: Therapeutic target for gout patients: <6.0 48-Eym-343462:07 Blood Glucose , Office (57311) Blood Glucose , Office 100 (Normal) 38-Tya-911744:07 HgA1C , Office (04635) HgA1C , Office 5.5 % (Normal) Range: 4.6 - 7.1 60-Hjq-260375:43 HIP MIN 2 VIEWS Radiology Report See Note (Normal) Comments: PROCEDURE: X-RAY - RIGHT HIP REASON FOR EXAM: Female, 67 years old. Hip pain. TECHNIQUE: Two views of the hip. COMPARISON: Comparison is made with prior study dated March 10, 2010. FINDINGS: N ormal femoral head, neck, intertrochanteric region and visualizedproximalfemur. There is osteoarthritic spur formation of the acetabular rim.There is mild articular joint space narrowing. Normal visual ized superior and inferior pubic rami and ischialtuberosities. IMPRESSION:Degenerative changes of the hip. Signed:Toñito Castellanos M.D.December 28, 2012 at 12:50:08 PM [id number] Signed GP/GP If you are the referring physician and would like to consult with theradiologist who provided this interpretation, please contact Azul Rossi at [phone]. If this radiologist is u navailable, youwill be directed to another radiologist to assist. If you are a patient with a question regarding this report, pleasecontactyour referring physician directly. Professional Interpretation Provided By: Weesh, Phone , These documents contain legally protected and confidential healthinformation intended only for the use of the individual or entity namedab ove. If you are not the intended recipient, you are hereby notifiedthatany disclosure, copying, distribution, or other use of these documents isstrictly prohibited. If you have received this information in error,pleasenotify the sender immediately and arrange for the return or destructionofthese documents. Dictated on 12/28/12 1250 by Vladimir Castellanos MDscribed on 12/28/12 1252 by ITS IMPORTS ign by Toñito Castellanos MD on 12/28/12 1253 Sign by: Toñito Castellanos MD 42-Ewq-148939:49 Uric Acid Blood (62058) Comments: PATIENT WAS FASTINGPERFORMED BY: [facility]6370 [facility] [id number] Uric Acid, Serum 10.5 mg/dL (Abnormal) Range: 2.5-7.1 Comments: Therapeutic target for gout patients: <6.0 :49 METABOLIC PANEL, Comments: PATIENT WAS FASTINGPERFORMED BY: [facility]CoSaint [facility] Boonton TownshipJemtkw8989 [facility] [id number] Information: [id number] COMPREHENSIVE (20050) ALT (SGPT) 24 [iU]/L (Normal) Range: 0-32 AST (SGOT) 25 [iU]/L (Normal) Range: 0-40 Alkaline Phosphatase, S 85 [iU]/L (Normal) Range: 47-112 Bilirubin, Total 0.4 mg/dL (Normal) Range: 0.0-1.2 A/G Ratio 1.4 (Normal) Range: 1.1-2.5 Globulin, Total 3.0 g/dL (Normal) Range: 1.5-4.5 Albumin, Serum 4.1 g/dL (Normal) Range: 3.6-4.8 Protein, Total, Serum 7.1 g/dL (Normal) Range: 6.0-8.5 Calcium, Serum 10.3 mg/dL (Abnormal) Range: 8.6-10.2 Carbon Dioxide, Total 21 mmol/L (Normal) Range: 19-28 Chloride, Serum 101 mmol/L (Normal) Range: 97-108 Potassium, Serum 4.6 mmol/L (Normal) Range: 3.5-5.2 Sodium, Serum 138 mmol/L (Normal) Range: 134-144 BUN/Creatinine Ratio 32 (Abnormal) Range: 11-26 eGFR If Africn Am 72 mL/min/1.73 (Normal) eGFR If NonAfricn Am 63 mL/min/1.73 (Normal) Creatinine, Serum 0.95 mg/dL (Normal) Range: 0.57-1.00 BUN 30 mg/dL (Abnormal) Range: 8-27 Glucose, Serum 106 mg/dL (Abnormal) Range: 65-99 30-Umt-643355:49 LIPID PANEL (84771) Comments: PATIENT WAS FASTINGPERFORMED BY: CibandoSaint [facility] Hospital at Boonton TownshipZtfrhb7957 [facility] [id number] LDL/HDL Ratio 4.4 {ratio_units} (Abnormal) Range: 0.0-3.2 LDL Cholesterol Calc 150 mg/dL (Abnormal) Range: 0-99 HDL Cholesterol 34 mg/dL (Abnormal) Comments: According to ATP-III Guidelines, HDL-C >59 mg/dL is considered anegative risk factor for CHD. VLDL Cholesterol Damon 53 mg/dL (Abnormal) Range: 5-40 Triglycerides 264 mg/dL (Abnormal) Range: 0-149 Cholesterol, Total 237 mg/dL (Abnormal) Range: 100-199 :18 HgA1C , Office (93700) HgA1C , Office 6.5 % (Normal) Range: 4.6 - 7.1 :18 Blood Glucose , Office (00183) Blood Glucose , Office 76 (Normal) :34 Lipid Panel (41870) Comments: PATIENT WAS FASTINGPERFORMED BY: [employer] Iuqvii7471 [facility] [id number] LDL/HDL Ratio 5.4 {ratio_units} (Abnormal) Range: 0.0-3.2 LDL Cholesterol Calc 210 mg/dL (Abnormal) Range: 0-99 VLDL Cholesterol Damon 57 mg/dL (Abnormal) Range: 5-40 HDL Cholesterol 39 mg/dL (Abnormal) Comments: According to ATP-III Guidelines, HDL-C >59 mg/dL is considered anegative risk factor for CHD. Triglycerides 284 mg/dL (Abnormal) Range: 0-149 Cholesterol, Total 306 mg/dL (Abnormal) Range: 100-199 10-Ukc-904660:34 Metabolic Panel, Comprehensive Comments: PATIENT WAS FASTINGPERFORMED BY: CibandoSaint [facility] Hospital at Boont[facility] TownshipGzariu5814 [facility] [id number] (29491) ALT (SGPT) 22 [iU]/L (Normal) Range: 0-32 AST (SGOT) 22 [iU]/L (Normal) Range: 0-40 Alkaline Phosphatase, S 81 [iU]/L (Normal) Range: 25-165 Bilirubin, Total 0.4 mg/dL (Normal) Range: 0.0-1.2 A/G Ratio 1.5 (Normal) Range: 1.1-2.5 Globulin, Total 2.8 g/dL (Normal) Range: 1.5-4.5 Albumin, Serum 4.2 g/dL (Normal) Range: 3.6-4.8 Protein, Total, Serum 7.0 g/dL (Normal) Range: 6.0-8.5 Calcium, Serum 10.0 mg/dL (Normal) Range: 8.6-10.2 Carbon Dioxide, Total 23 mmol/L (Normal) Range: 20-32 Chloride, Serum 101 mmol/L (Normal) Range: 97-108 Potassium, Serum 4.3 mmol/L (Normal) Range: 3.5-5.2 Sodium, Serum 138 mmol/L (Normal) Range: 134-144 BUN/Creatinine Ratio 20 (Normal) Range: 11-26 eGFR If Africn Am 86 mL/min/1.73 (Normal) eGFR If NonAfricn Am 75 mL/min/1.73 (Normal) Creatinine, Serum 0.82 mg/dL (Normal) Range: 0.57-1.00 BUN 16 mg/dL (Normal) Range: 8-27 Glucose, Serum 113 mg/dL (Abnormal) Range: 65-99 50-Nro-678272:34 CBC with manual diff Comments: PATIENT WAS FASTINGPERFORMED BY: LabCoSaint [facility] Hospital at Boonton TownshipMnikrx8989 [facility] [id number] Information: [id number] (05168) Immature Grans (Abs) 0.0 {x10E3/uL} (Normal) Range: 0.0-0.1 Immature Granulocytes 0 % (Normal) Range: 0-2 Baso (Absolute) 0.1 {x10E3/uL} (Normal) Range: 0.0-0.2 Eos (Absolute) 0.2 {x10E3/uL} (Normal) Range: 0.0-0.4 Monocytes(Absolute) 0.4 {x10E3/uL} (Normal) Range: 0.1-1.0 Lymphs (Absolute) 1.9 {x10E3/uL} (Normal) Range: 0.7-4.5 Neutrophils (Absolute) 4.0 {x10E3/uL} (Normal) Range: 1.8-7.8 Basos 1 % (Normal) Range: 0-3 Eos 4 % (Normal) Range: 0-7 Monocytes 6 % (Normal) Range: 4-13 Lymphs 29 % (Normal) Range: 14-46 Neutrophils 60 % (Normal) Range: 40-74 Platelets 184 {x10E3/uL} (Normal) Range: 140-415 RDW 13.9 % (Normal) Range: 12.3-15.4 MCHC 33.8 g/dL (Normal) Range: 31.5-35.7 MCH 31.3 pg (Normal) Range: 26.6-33.0 MCV 93 fL (Normal) Range: 79-97 Hematocrit 39.9 % (Normal) Range: 34.0-46.6 Hemoglobin 13.5 g/dL (Normal) Range: 11.1-15.9 RBC 4.31 {x10E6/uL} (Normal) Range: 3.77-5.28 WBC 6.6 {x10E3/uL} (Normal) Range: 4.0-10.5 13-Wmo-605597:16 MICROALBUMIN: CREATININE Comments: PATIENT NOT FASTINGPERFORMED BY: LabCoSaint [facility] Bo[facility] TownshipAemwzk6761 [facility] [id number] Information: [id number] RATIO (86901) AND (84551) Microalb/Creat Ratio 3.9 {mg/g_creat} (Normal) Range: 0.0-30.0 Microalbumin, Urine 3.3 ug/mL (Normal) Range: 0.0-17.0 Creatinine, Urine 85.1 mg/dL (Normal) Range: 15.0-278.0 58-Lmq-540859:16 Blood Glucose , Office (02835) Blood Glucose , Office 128 (Normal) 44-Arg-968773:16 HgA1C , Office (94561) HgA1C , Office 5.4 % (Normal) Range: 4.6 - 7.1 61-Tcw-136697:34 CBC with manual diff Comments: PATIENT WAS FASTINGPERFORMED BY: LabCoSaint [facility] Bo[facility] TownshipUugnol8727 [facility] [id number] Information: [id number] (69367) Immature Grans (Abs) 0.0 {x10E3/uL} (Normal) Range: 0.0-0.1 Baso (Absolute) 0.0 {x10E3/uL} (Normal) Range: 0.0-0.2 Immature Granulocytes 0 % (Normal) Range: 0-2 Eos (Absolute) 0.2 {x10E3/uL} (Normal) Range: 0.0-0.4 Lymphs (Absolute) 1.9 {x10E3/uL} (Normal) Range: 0.7-4.5 Monocytes(Absolute) 0.4 {x10E3/uL} (Normal) Range: 0.1-1.0 Neutrophils (Absolute) 4.1 {x10E3/uL} (Normal) Range: 1.8-7.8 Basos 0 % (Normal) Range: 0-3 Eos 4 % (Normal) Range: 0-7 Monocytes 6 % (Normal) Range: 4-13 Lymphs 28 % (Normal) Range: 14-46 Neutrophils 62 % (Normal) Range: 40-74 Platelets 198 {x10E3/uL} (Normal) Range: 140-415 RDW 13.7 % (Normal) Range: 12.3-15.4 MCHC 33.2 g/dL (Normal) Range: 31.5-35.7 MCH 31.7 pg (Normal) Range: 26.6-33.0 MCV 96 fL (Normal) Range: 79-97 Hematocrit 40.1 % (Normal) Range: 34.0-46.6 Hemoglobin 13.3 g/dL (Normal) Range: 11.1-15.9 RBC 4.19 {x10E6/uL} (Normal) Range: 3.77-5.28 WBC 6.8 {x10E3/uL} (Normal) Range: 4.0-10.5 64-Uvs-476587:34 Metabolic Panel, Comprehensive Comments: PATIENT WAS FASTINGPERFORMED BY: LabCoSaint [facility] Boont[facility] TownshipEhbuhs6058 [facility] [id number] (48777) ALT (SGPT) 21 [iU]/L (Normal) Range: 0-32 Alkaline Phosphatase, S 78 [iU]/L (Normal) Range: 25-165 AST (SGOT) 20 [iU]/L (Normal) Range: 0-40 Bilirubin, Total 0.3 mg/dL (Normal) Range: 0.0-1.2 A/G Ratio 1.7 (Normal) Range: 1.1-2.5 Globulin, Total 2.6 g/dL (Normal) Range: 1.5-4.5 Albumin, Serum 4.3 g/dL (Normal) Range: 3.6-4.8 Protein, Total, Serum 6.9 g/dL (Normal) Range: 6.0-8.5 Calcium, Serum 9.9 mg/dL (Normal) Range: 8.6-10.2 Carbon Dioxide, Total 24 mmol/L (Normal) Range: 20-32 Chloride, Serum 100 mmol/L (Normal) Range: 97-108 Potassium, Serum 4.5 mmol/L (Normal) Range: 3.5-5.2 Sodium, Serum 140 mmol/L (Normal) Range: 134-144 BUN/Creatinine Ratio 23 (Normal) Range: 11-26 eGFR If Africn Am 87 mL/min/1.73 (Normal) eGFR If NonAfricn Am 75 mL/min/1.73 (Normal) Creatinine, Serum 0.82 mg/dL (Normal) Range: 0.57-1.00 BUN 19 mg/dL (Normal) Range: 8-27 Glucose, Serum 102 mg/dL (Abnormal) Range: 65-99 52-Kbx-956030:34 Lipid Panel (72507) Comments: PATIENT WAS FASTINGPERFORMED BY: [employer] [facility] [id number] LDL Cholesterol Calc 160 mg/dL (Abnormal) Range: 0-99 LDL/HDL Ratio 4.0 {ratio_units} (Abnormal) Range: 0.0-3.2 VLDL Cholesterol Damon 58 mg/dL (Abnormal) Range: 5-40 HDL Cholesterol 40 mg/dL (Normal) Comments: According to ATP-III Guidelines, HDL-C >59 mg/dL is considered anegative risk factor for CHD. Cholesterol, Total 258 mg/dL (Abnormal) Range: 100-199 Triglycerides 288 mg/dL (Abnormal) Range: 0-149 2-Sny-287989:56 URINE MIRANDA CULTURE-ADAM COL Comments: PATIENT NOT FASTINGPERFORMED BY: [employer] [facility] [id number] Information: SRC:ARTI [id number] COUNT (50600) Result 1 MUG (Normal) Comments: Mixed urogenital flora25,000-50,000 colony forming units per mL Urine Final report (Normal) Culture,Comprehensive 5-Kqg-095631:33 Urinalysis, Office (66635) UA - BILIRUBIN Negative (Normal) UA - BLOOD Negative (Normal) UA - GLUCOSE Negative (Normal) UA - KETONES Negative mg/dL (Normal) UA - LEUKOCYTE ESTERASE Negative (Normal) UA - NITRITE Negative (Normal) UA - PH 6.5 (Normal) UA - PROTEIN Negative mg/dL (Normal) UA - SPECIFIC GRAVITY 1.015 (Normal) URINE UROBILINGN ADAM TIMED 2 mg/dL (Normal) 30-Moh-757574:39 L/S SPINE,MIN 4 VIEWS Radiology Report See Note (Normal) Comments: PROCEDURE: X-RAY - LUMBAR SPINE REASON FOR EXAM: Female, 66 years old. Chronic low back pain. TECHNIQUE: Five views of the lumbar spine were obtained. COMPARISON: None FINDINGS:Normal lumbar lo rdosis. There is no substantial scoliosis. T12-L1: Normal disc height. Normal endplates. Normal alignment of thevertebrae. L1-2: Normal disc height. Normal endplates. Normal alignment of thevertebrae . L2-3: Normal disc height. Normal endplates. Normal alignment of thevertebrae. L3-4: Normal disc height. Normal endplates. Normal alignment of thevertebrae. L4-5: There is a moderate degree of disk space narrowing. There is agrade 1 anterior listhesis of L4 on L5 without spondylolyses. There isevidence of facet joint osteoarthritis. L5-S1: There is a marked degree of disk space narrowing with a anteriorspondylosis and facet joint osteoarthritis. The soft tissue structures are unremarkable. IMPRESSION:Degenerative changes of the spine, as detailed above.Grade 1 anterior listhesis of L4 on L5. Signed:Toñito Castellanos M.D.February 29, 2012 at 1:58:08 PM [id number] Signed GP/GP If you are the referring physician and would like to consult with theradiologist who provided this i nterpretation, please contact Azul Rossi at [phone]. If this radiologist is unavailable, youwill be directed to another radiologist to assist. If you are a patient with a question rega rding this report, pleasecontactyour referring physician directly. Professional Interpretation Provided By: Weesh, Phone , These documents contain legally protected a nd confidential healthinformation intended only for the use of the individual or entity namedabove. If you are not the intended recipient, you are hereby notifiedthatany disclosure, copying, distributio n, or other use of these documents isstrictly prohibited. If you have received this information in error,pleasenotify the sender immediately and arrange for the return or destructionofthese documents. Dictated on 02/28/12 1351 by Jasmin DAI,Enmaranscribed on 02/29/12 1655 by ITS IMPORTSign by Jasmin DAI,Toñito on 02/29/121655 Sign by: ___ Toñito Castellanos MD 47-Bzm-154065:00 METABOLIC PANEL, Comments: PATIENT WAS FASTINGPERFORMED BY: [facility]CoSaint [facility] TownshipYidodz2554 [facility] [id number] Information: [id number] COMPREHENSIVE (37570) ALT (SGPT) 20 [iU]/L (Normal) Range: 0-40 Comments: Effective May 29, 2012 the reference interval for ALT (SGPT) will be changing to: Male Female 0 - 11 years 0 - 29 0 - 28 12 - 17 years 0 - 30 0 - 24 > 17 years 0 - 44 0 - 32 AST (SGOT) 24 [iU]/L (Normal) Range: 0-40 Alkaline Phosphatase, S 78 [iU]/L (Normal) Range: 25-165 Bilirubin, Total 0.4 mg/dL (Normal) Range: 0.0-1.2 A/G Ratio 1.5 (Normal) Range: 1.1-2.5 Globulin, Total 2.8 g/dL (Normal) Range: 1.5-4.5 Albumin, Serum 4.2 g/dL (Normal) Range: 3.6-4.8 Protein, Total, Serum 7.0 g/dL (Normal) Range: 6.0-8.5 Calcium, Serum 10.0 mg/dL (Normal) Range: 8.6-10.2 Carbon Dioxide, Total 26 mmol/L (Normal) Range: 20-32 Chloride, Serum 100 mmol/L (Normal) Range: 97-108 Potassium, Serum 4.4 mmol/L (Normal) Range: 3.5-5.2 Sodium, Serum 139 mmol/L (Normal) Range: 134-144 BUN/Creatinine Ratio 25 (Normal) Range: 11-26 eGFR If Africn Am 95 mL/min/1.73 (Normal) eGFR If NonAfricn Am 83 mL/min/1.73 (Normal) Creatinine, Serum 0.76 mg/dL (Normal) Range: 0.57-1.00 BUN 19 mg/dL (Normal) Range: 8-27 Glucose, Serum 101 mg/dL (Abnormal) Range: 65-99 11-Evl-764726:00 LIPID PANEL ([id number]) Comments: PATIENT WAS FASTINGPERFORMED BY: [facility]CoSaint [facility] TownshipCdbpbl2558 [facility] [id number] LDL Cholesterol Calc 165 mg/dL (Abnormal) Range: 0-99 LDL/HDL Ratio 4.6 {ratio_units} (Abnormal) Range: 0.0-3.2 VLDL Cholesterol Damon 67 mg/dL (Abnormal) Range: 5-40 HDL Cholesterol 36 mg/dL (Abnormal) Comments: According to ATP-III Guidelines, HDL-C >59 mg/dL is considered anegative risk factor for CHD. Cholesterol, Total 268 mg/dL (Abnormal) Range: 100-199 Triglycerides 335 mg/dL (Abnormal) Range: 0-149 :39 Blood Glucose , Office (39829) Blood Glucose , Office 124 (Normal) :39 HgA1C , Office (26550) HgA1C , Office 5.9 % (Normal) Range: 4.6 - 7.1 :37 Urinalysis, Office (89876) UA - BILIRUBIN Negative (Normal) UA - BLOOD Hemolyzed Large (Normal) UA - GLUCOSE Negative (Normal) UA - KETONES Negative mg/dL (Normal) UA - LEUKOCYTE ESTERASE Small (Normal) UA - NITRITE Negative (Normal) UA - PH 6.5 (Normal) UA - PROTEIN Negative mg/dL (Normal) UA - SPECIFIC GRAVITY 1.015 (Normal) URINE UROBILINGN ADAM TIMED 2 mg/dL (Normal) :26 LIPID PANEL ([id number]) Comments: PATIENT WAS FASTINGPERFORMED BY: [facility]ibandoSaint [facility] Bo[facility] TownshipYjydkn9201 [facility] [id number] LDL/HDL Ratio 5.3 {ratio_units} (Abnormal) Range: 0.0-3.2 LDL Cholesterol Calc 186 mg/dL (Abnormal) Range: 0-99 VLDL Cholesterol Damon 80 mg/dL (Abnormal) Range: 5-40 HDL Cholesterol 35 mg/dL (Abnormal) Comments: According to ATP-III Guidelines, HDL-C >59 mg/dL is considered anegative risk factor for CHD. Triglycerides 398 mg/dL (Abnormal) Range: 0-149 Cholesterol, Total 301 mg/dL (Abnormal) Range: 100-199 :26 HEPATIC FUNCTION PANEL Comments: PATIENT WAS FASTINGPERFORMED BY: [employer]6370 [facility] [id number] Information: [id number] (09166) ALT (SGPT) 22 [iU]/L (Normal) Range: 0-40 AST (SGOT) 24 [iU]/L (Normal) Range: 0-40 Alkaline Phosphatase, S 84 [iU]/L (Normal) Range: 25-165 Bilirubin, Direct 0.11 mg/dL (Normal) Range: 0.00-0.40 Bilirubin, Total 0.4 mg/dL (Normal) Range: 0.0-1.2 Albumin, Serum 4.3 g/dL (Normal) Range: 3.6-4.8 Protein, Total, Serum 7.2 g/dL (Normal) Range: 6.0-8.5 :10 HgA1C , Office (77391) HgA1C , Office 6.3 % (Normal) Range: 4.6 - 7.1 77-Vvh-503188:10 Blood Glucose , Office (07504) Blood Glucose , Office 123 (Normal) 4-Oid-788643:26 LOWER EXT.JOINT ONLY (ROUTINE) Radiology Report See Note (Normal) Comments: PROCEDURE: MRI LEFT KNEE REASON FOR EXAM: Female, 66 years old. Medial left knee pain andburning. TECHNIQUE: Standardized fat and water weighted pulse sequences wereobtained in all 3 ort hogonal plan es. COMPARISON: None. FINDINGS:There is a radial tear of the posterior horn of the medial meniscusadjacent to the root attachment with extrusion of the body and anteriorhorn of the meniscus (coronal se efe 12 image is 4-11). There is nearcomplete loss of articular cartilage in the medial femorotibialcompartmentwith reactive subchondral bone marrow edema and osteophyte formation(coronal series 12 yobani ge is 5- 12). Normal medial collateral ligamentous complex (MCL). Normal distalsemimembranosus, gracilis and semitendinosus tendons. Normal lateral meniscus. There is moderate loss of articular cartil ageofthe lateral femorotibial compartment with osteophyte formation (coronalseries 12 images 7- 13). Normal proximal tibiofibular articulation. Normal lateral collateral(fibular) ligament. Normal po pliteus tendon. Normal biceps femoristendon. Normal anterior cruciate ligament (ACL). Normal posterior cruciateligament (PCL). Normal congruent patellofemoral articulation. There is moderate loss ofa rticular cartilage of the patellofemoral compartment with reactivesubchondral bone marrow edema and osteophyte formation (axial series 4images 2-10). Normal medial and lateral patellar retinaculum. Nor mal quadriceps tendon. Normal patellar tendon. Normal Hoffa's fatpad. There is a moderate-sized joint effusion (sagittal series 8 image 15). The soft tissues are unremarkable. The otherwise visualize d osseousstructures are unremarkable. IMPRESSION:Radial tear of the posterior horn of the medial meniscus with extrusionofthe body and anterior horn. Complete loss of articular cartilage of the medial f emorotibialcompartment. Moderate loss of articular cartilage of the lateral and patellofemoralcompartments. Moderate-sized joint effusion. No significant abnormality. To consult with a radiologist mary jane ding this report, please call our [id number] line @ Dictated on 10/08/11 1458 by Brian Spaulding MDTranscribed on 10/08/11 1710 by ITS IMPORTSign by Brian Spaulding MD on 10/08/11 1711 Si gn by: Brian Spaulding MD :44 LIPID PANEL ([id number]) Comments: PATIENT NOT FASTINGPERFORMED BY: [facility]6370 [facility] [id number]; f/u 11/19/11 LDL/HDL Ratio 5.0 {ratio_units} (Abnormal) Range: 0.0-3.2 LDL Cholesterol Calc 190 mg/dL (Abnormal) Range: 0-99 Comments: Possible Familial Hypercholesterolemia. FH should be suspected whenfasting LDL cholesterol is above 189 mg/dL or non-HDL cholesterolis above 219 mg/dL. A family history of high cholesterol and heartdise ase in 1st degree relatives should be collected. J Clin Fyshffl5053;5:133-140 VLDL Cholesterol Damon 75 mg/dL (Abnormal) Range: 5-40 HDL Cholesterol 38 mg/dL (Abnormal) Comments: According to ATP-III Guidelines, HDL-C >59 mg/dL is considered anegative risk factor for CHD. Triglycerides 373 mg/dL (Abnormal) Range: 0-149 Cholesterol, Total 303 mg/dL (Abnormal) Range: 100-199 :44 METABOLIC PANEL, Comments: PATIENT NOT FASTINGPERFORMED BY: [facility]6370 [facility] [id number] Information: [id number] COMPREHENSIVE (43243) ALT (SGPT) 22 [iU]/L (Normal) Range: 0-40 AST (SGOT) 20 [iU]/L (Normal) Range: 0-40 Alkaline Phosphatase, S 78 [iU]/L (Normal) Range: 25-165 Bilirubin, Total 0.4 mg/dL (Normal) Range: 0.0-1.2 A/G Ratio 1.4 (Normal) Range: 1.1-2.5 Globulin, Total 2.9 g/dL (Normal) Range: 1.5-4.5 Albumin, Serum 4.1 g/dL (Normal) Range: 3.6-4.8 Protein, Total, Serum 7.0 g/dL (Normal) Range: 6.0-8.5 Calcium, Serum 10.1 mg/dL (Normal) Range: 8.6-10.2 Carbon Dioxide, Total 24 mmol/L (Normal) Range: 20-32 Chloride, Serum 100 mmol/L (Normal) Range: 97-108 Potassium, Serum 4.1 mmol/L (Normal) Range: 3.5-5.2 Sodium, Serum 140 mmol/L (Normal) Range: 134-144 BUN/Creatinine Ratio 25 (Normal) Range: 11-26 eGFR If Africn Am 95 mL/min/1.73 (Normal) Comments: Note: A persistent eGFR <60 mL/min/1.73 m2 (3 months or more) mayindicate chronic kidney disease. An eGFR >59 mL/min/1.73 m2 with anelevated urine protein also may indicate chronic kidney disease.Calculated using CKD-EPI formula. eGFR If NonAfricn Am 83 mL/min/1.73 (Normal) Creatinine, Serum 0.76 mg/dL (Normal) Range: 0.57-1.00 BUN 19 mg/dL (Normal) Range: 8-27 Glucose, Serum 126 mg/dL (Abnormal) Range: 65-99 7-Fyh-973677:32 COMP METABOLIC GAP 8 (Normal) Range: 5-15 CL 101 mmol/L (Normal) Range: 98-107 CO2 28.0 mmol/L (Normal) Range: 21.0-32.0 K 4.4 mmol/L (Normal) Range: 3.5-5.1 NA 137 mmol/L (Normal) Range: 136-145 T BILI 0.40 mg/dL (Normal) Range: 0.00-1.00 ALT 35 U/L (Normal) Range: 12-78 ALK P 73 U/L (Normal) Range: 50-136 AST 19 U/L (Normal) Range: 15-37 CA 9.5 mg/dL (Normal) Range: 8.5-10.1 A/G 1.1 {RATIO} (Normal) Range: 0.9-2.4 ALB 3.9 g/dL (Normal) Range: 3.4-5.0 GLOB 3.7 g/dL (Normal) Range: 2.7-4.2 BUN/CRE 19.0 {RATIO} (Normal) Range: 10-20 T PROT 7.6 g/dL (Normal) Range: 6.4-8.2 CREAT,SERUM 1.0 mg/dL (Normal) Range: 0.6-1.0 EST GFR 59 mL/min (Abnormal) EST GFR - AA 72 mL/min (Normal) BUN 19 mg/dL (Abnormal) Range: 7-18 GLU 115 mg/dL (Abnormal) Range: 70-110 Comments: Fasting Glucose result from 110 to <126 mg/dL suggests IMPAIRED HOMEOSTASIS per A.D.A. criteria. 1-Gds-075577:32 LIPID LDL 191 mg/dL (Abnormal) Range: 0-130 VLDL 66 mg/dL (Abnormal) Range: 5-40 HDL 30 mg/dL (Abnormal) Comments: Reference Range HDL <40 mg/dL Low HDL Cholesterol HDL >or= 60 mg/dL High HDL Cholesterol TRIG 332 mg/dL (Abnormal) Comments: Serum Triglycerides Reference Interval Normal <150 mg/dL Borderline high 150 - 199 mg/dL High 200 - 499 mg/dL Very High > or = 500 mg/dL CHOL 287 mg/dL (Abnormal) Comments: <200 mg/dL Desirable 200-240 mg/dL Borderline >240 mg/dL High Risk 6-Sou-614625:56 LIPID LDL 146 mg/dL (Abnormal) Range: 0-130 VLDL 78 mg/dL (Abnormal) Range: 5-40 HDL 36 mg/dL (Abnormal) Comments: Reference Range HDL <40 mg/dL Low HDL Cholesterol HDL >or= 60 mg/dL High HDL Cholesterol TRIG 389 mg/dL (Abnormal) Comments: Serum Triglycerides Reference Interval Normal <150 mg/dL Borderline high 150 - 199 mg/dL High 200 - 499 mg/dL Very High > or = 500 mg/dL CHOL 260 mg/dL (Abnormal) Comments: <200 mg/dL Desirable 200-240 mg/dL Borderline >240 mg/dL High Risk :56 LIVER D BILI 0.08 mg/dL (Normal) Range: 0.00-0.30 T BILI 0.40 mg/dL (Normal) Range: 0.00-1.00 ALK P 66 U/L (Normal) Range: 50-136 ALT 33 U/L (Normal) Range: 12-78 ALB 3.8 g/dL (Normal) Range: 3.4-5.0 AST 15 U/L (Normal) Range: 15-37 T PROT 7.2 g/dL (Normal) Range: 6.4-8.2 :18 HgA1C , Office (89676) HgA1C , Office 6.1 % (Normal) Range: 4.6 - 7.1 :18 Blood Glucose , Office (73690) Blood Glucose , Office 106 (Normal) :52 LIPID CHOL 269 mg/dL (Abnormal) Comments: <200 mg/dL Desirable 200-240 mg/dL Borderline >240 mg/dL High Risk HDL 33 mg/dL (Abnormal) Comments: Reference Range HDL <40 mg/dL Low HDL Cholesterol HDL >or= 60 mg/dL High HDL Cholesterol LDL 176 mg/dL (Abnormal) Range: 0-130 TRIG 301 mg/dL (Abnormal) Comments: Serum Triglycerides Reference Interval Normal <150 mg/dL Borderline high 150 - 199 mg/dL High 200 - 499 mg/dL Very High > or = 500 mg/dL VLDL 60 mg/dL (Abnormal) Range: 5-40 :52 LIVER ALB 3.6 g/dL (Normal) Range: 3.4-5.0 ALK P 72 U/L (Normal) Range: 50-136 ALT 31 U/L (Normal) Range: 12-78 AST 17 U/L (Normal) Range: 15-37 D BILI 0.11 mg/dL (Normal) Range: 0.00-0.30 T BILI 0.40 mg/dL (Normal) Range: 0.00-1.00 T PROT 7.7 g/dL (Normal) Range: 6.4-8.2 68-Mcg-716593:00 KIDNEY Radiology Report See Note (Normal) Comments: Exam Number: [id number] CLINICAL:64 year old female for right renal cyst. RENAL ULTRASOUND TECHNIQUE:The kidneys and bladder were evaluated at real-time sonographicallywith static street scale images obt jeannette for image documentation. COMPARISON:None. FINDINGS:Normal location of the right kidney. Normal length of the rightkidney. The right kidney measures 10.3 x 5.6 x 4.6 cm. There is nofocal parenchym al thinning of the right kidney. There is a lowerpole cyst measuring 2.4 x 2.9 x 2.7 cm. There are no right renalcalculi. There is no right hydronephrosis. There is no dilatation of the visualized d istal right ureter. Thereis no demonstrated right ureteral calculus. Normal location of the left kidney. Normal length of the leftkidney. The left kidney measures 13.5 x 4.6 x 4.6 cm. There is nofoc al parenchymal thinning of the left kidney. There is no leftrenal mass or cyst. There are no left renal calculi. There is noleft hydronephrosis. There is no dilatation of the visualized distal left ureter. Thereis no demonstrated left ureteral calculus. The urinary bladder is not distended. The visualized aorta and IVC are unremarkable. IMPRESSION:Right renal cyst. Reported By: LILI BARKLEY DR. 87-Ybr-528110:55 HIP, MIN 2 VIEWS Radiology Report See Note (Normal) Comments: Exam Number: [id number] CLINICAL:64 year old female complains of pain in the hip. X-RAY EXAMINATION: RIGHT HIP TECHNIQUE:Two views of the hip. COMPARISON:None. FINDINGS:Normal femoral head, n seng, intertr ochanteric region and visualizedproximal femur. 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 There is mild articular joint space narrowing. Normal visualized superior and inferior pubic kirsty i and ischialtuberosities. Normal visualized soft tissue structures of the hip. IMPRESSION:Degenerative changes, as noted above. Reported By: LILI BARKLEY DR. 01-Edh-520594:25 HgA1C , Office (45726) HgA1C , Office 6.0 % (Normal) Range: 4.6 - 7.1 91-Zsc-680513:25 Blood Glucose , Office (85182) Blood Glucose , Office 114 (Normal) 54-Pff-502803:59 COMP METABOLIC ALK P 64 U/L (Normal) Range: 50-136 ALT 29 U/L (Normal) Range: 12-78 CL 102 mmol/L (Normal) Range: 98-107 CO2 29.0 mmol/L (Normal) Range: 21.0-32.0 GAP 7 (Normal) Range: 5-15 K 4.1 mmol/L (Normal) Range: 3.5-5.1 NA 138 mmol/L (Normal) Range: 136-145 T BILI 0.40 mg/dL (Normal) Range: 0.00-1.00 A/G 0.9 {RATIO} (Normal) Range: 0.9-2.4 ALB 3.6 g/dL (Normal) Range: 3.4-5.0 AST 20 U/L (Normal) Range: 15-37 BUN/CRE 18.8 {RATIO} (Normal) Range: 10-20 CA 9.2 mg/dL (Normal) Range: 8.5-10.1 CREAT,SERUM 0.8 mg/dL (Normal) Range: 0.6-1.0 EST GFR 77 mL/min (Normal) EST GFR - AA 93 mL/min (Normal) GLOB 3.9 g/dL (Normal) Range: 2.7-4.2 T PROT 7.5 g/dL (Normal) Range: 6.4-8.2 BUN 15 mg/dL (Normal) Range: 7-18 GLU 109 mg/dL (Normal) Range: 70-110 :59 LIPID CHOL 297 mg/dL (Abnormal) Comments: <200 mg/dL Kvvsbuzhy099-658 mg/dL Borderline>240 mg/dL High Risk HDL 33 mg/dL (Abnormal) Comments: Reference RangeHDL <40 mg/dL Low HDL CholesterolHDL >or= 60 mg/dL High HDL Cholesterol LDL 211 mg/dL (Abnormal) Range: 0-130 TRIG 267 mg/dL (Abnormal) Comments: Serum Triglycerides Reference IntervalNormal <150 mg/dLBorderline high 150 - 199 mg/dLHigh 200 - 499 mg/ dLVery High > or = 500 mg/dL VLDL 53 mg/dL (Abnormal) Range: 5-40 :29 HgA1C , Office (36592) HgA1C , Office 6.3 % (Normal) Range: 4.6 - 7.1 :29 Blood Glucose , Office (79750) Blood Glucose , Office 108 (Normal) :52 LIPID VLDL 60 mg/dL (Abnormal) Range: 5-40 HDL 39 mg/dL (Normal) Comments: Reference RangeHDL <40 mg/dL Low HDL CholesterolHDL >or= 60 mg/dL High HDL Cholesterol LDL 160 mg/dL (Abnormal) Range: 0-130 TRIG 300 mg/dL (Abnormal) Comments: Serum Triglycerides Reference IntervalNormal <150 mg/dLBorderline high 150 - 199 mg/dLHigh 200 - 499 mg/ dLVery High > or = 500 mg/dL CHOL 259 mg/dL (Abnormal) Comments: <200 mg/dL Irztbwrli230-993 mg/dL Borderline>240 mg/dL High Risk :51 COMP METABOLIC A/G 1.2 {RATIO} (Normal) Range: 0.9-2.4 ALB 4.0 g/dL (Normal) Range: 3.4-5.0 ALK P 64 U/L (Normal) Range: 50-136 ALT 25 U/L (Normal) Range: 12-78 AST 17 U/L (Normal) Range: 15-37 CA 9.7 mg/dL (Normal) Range: 8.5-10.1 CL 100 mmol/L (Normal) Range: 98-107 CO2 29.0 mmol/L (Normal) Range: 21.0-32.0 GAP 11 (Normal) Range: 5-15 GLOB 3.3 g/dL (Normal) Range: 2.7-4.2 K 4.6 mmol/L (Normal) Range: 3.5-5.1 NA 140 mmol/L (Normal) Range: 136-145 T BILI 0.50 mg/dL (Normal) Range: 0.00-1.00 BUN 16 mg/dL (Normal) Range: 7-18 BUN/CRE 16.0 {RATIO} (Normal) Range: 10-20 CREAT,SERUM 1.0 mg/dL (Normal) Range: 0.6-1.0 EST GFR 60 mL/min (Normal) EST GFR - AA 73 mL/min (Normal) T PROT 7.3 g/dL (Normal) Range: 6.4-8.2 GLU 115 mg/dL (Abnormal) Range: 70-110 Comments: Fasting Glucose result from 110 to <126 mg/dLsuggests IMPAIRED HOMEOSTASIS per A.D.A. criteria. :40 BMP CL 99 mmol/L (Normal) Range: 98-107 CO2 32.0 mmol/L (Normal) Range: 21.0-32.0 GAP 7 (Normal) Range: 5-15 K 3.9 mmol/L (Normal) Range: 3.5-5.1 BUN 19 mg/dL (Abnormal) Range: 7-18 BUN/CRE 21.1 {RATIO} (Abnormal) Range: 10-20 CA 9.3 mg/dL (Normal) Range: 8.5-10.1 CREAT,SERUM 0.9 mg/dL (Normal) Range: 0.6-1.0 EST GFR 67 mL/min (Normal) EST GFR - AA 81 mL/min (Normal) NA 138 mmol/L (Normal) Range: 136-145 GLU 88 mg/dL (Normal) Range: 70-110 :02 HgA1C , Office (55405) HgA1C , Office 5.7 % (Normal) Range: 4.6 - 7.1 :02 Blood Glucose , Office (59965) Blood Glucose , Office 129 (Normal) :14 COMP METABOLIC A/G 0.9 {RATIO} (Normal) Range: 0.9-2.4 ALB 3.6 g/dL (Normal) Range: 3.4-5.0 ALK P 67 U/L (Normal) Range: 50-136 ALT 26 U/L (Normal) Range: 12-78 Comments: Please Note: Revised Reference Range effective 09 AST 18 U/L (Normal) Range: 15-37 BUN 21 mg/dL (Abnormal) Range: 7-18 BUN/CRE 21.0 {RATIO} (Abnormal) Range: 10-20 CA 8.8 mg/dL (Normal) Range: 8.5-10.1 CL 97 mmol/L (Abnormal) Range: 98-107 CO2 28.0 mmol/L (Normal) Range: 21.0-32.0 CREAT,SERUM 1.0 mg/dL (Normal) Range: 0.6-1.0 EST GFR 60 mL/min (Normal) EST GFR - AA 73 mL/min (Normal) GAP 12 (Normal) Range: 5-15 GLOB 3.9 g/dL (Normal) Range: 2.7-4.2 GLU 124 mg/dL (Abnormal) Range: 70-110 Comments: Fasting Glucose result from 110 to <126 mg/dL suggests IMPAIRED HOMEOSTASIS per A.D.A. criteria. K 3.3 mmol/L (Abnormal) Range: 3.5-5.1 NA 137 mmol/L (Normal) Range: 136-145 T BILI 0.40 mg/dL (Normal) Range: 0.00-1.00 T PROT 7.5 g/dL (Normal) Range: 6.4-8.2 :14 LIPID CHOL 267 mg/dL (Abnormal) Comments: <200 mg/dL Desirable 200-240 mg/dL Borderline >240 mg/dL High Risk HDL 35 mg/dL (Normal) Comments: Reference Range HDL <40 mg/dL Low HDL Cholesterol HDL >or= 60 mg/dL High HDL Cholesterol LDL 164 mg/dL (Abnormal) Range: 0-130 TRIG 340 mg/dL (Abnormal) Comments: Serum Triglycerides Reference Interval Normal <150 mg/dL Borderline high 150 - 199 mg/dL High 200 - 499 mg/dL Very High > or = 500 mg/dL VLDL 68 mg/dL (Abnormal) Range: :05 HgA1C , Office (24806) HgA1C , Office 5.7 % (Normal) Range: 4.6 - 7.1 :05 Blood Glucose , Office (84082) Blood Glucose , Office 107 (Normal) :27 LIPID CHOL 284 mg/dL (Abnormal) Comments: <200 mg/dL Desirable 200-240 mg/dL Borderline >240 mg/dL High Risk HDL 33 mg/dL (Abnormal) Comments: Reference Range HDL <40 mg/dL Low HDL Cholesterol HDL >or= 60 mg/dL High HDL Cholesterol LDL 178 mg/dL (Abnormal) Range: 0-130 TRIG 366 mg/dL (Abnormal) Comments: Serum Triglycerides Reference Interval Normal <150 mg/dL Borderline high 150 - 199 mg/dL High 200 - 499 mg/dL Very High > or = 500 mg/dL VLDL 73 mg/dL (Abnormal) Range: 40 :27 LIVER ALB 3.5 g/dL (Normal) Range: 3.4-5.0 ALK P 75 U/L (Normal) Range: 50-136 ALT 26 U/L (Abnormal) Range: 30-65 AST 10 U/L (Abnormal) Range: 15-37 D BILI 0.10 mg/dL (Normal) Range: 0.00-0.30 T BILI 0.40 mg/dL (Normal) Range: 0.00-1.00 T PROT 7.4 g/dL (Normal) Range: 6.4-8.2 :10 Blood Glucose , Office (77066) Blood Glucose , Office 97 (Normal) 13-Stl-087221:10 HgA1C , Office (81992) HgA1C , Office 5.8 % (Normal) Range: 4.6 - 7.1 Comments: aw :06 COMP METABOLIC A/G 1.1 {RATIO} (Normal) Range: 0.9-2.4 ALB 3.9 g/dL (Normal) Range: 3.4-5.0 ALK P 97 U/L (Normal) Range: 50-136 ALT 25 U/L (Abnormal) Range: 30-65 AST 11 U/L (Abnormal) Range: 15-37 BUN 16 mg/dL (Normal) Range: 7-18 BUN/CRE 17.8 {RATIO} (Normal) Range: 10-20 CA 9.5 mg/dL (Normal) Range: 8.5-10.1 CL 102 mmol/L (Normal) Range: 98-107 CO2 31.0 mmol/L (Normal) Range: 21.0-32.0 CREAT,SERUM 0.9 mg/dL (Normal) Range: 0.6-1.0 EST GFR 67 mL/min (Normal) EST GFR - AA 81 mL/min (Normal) GAP 6 (Normal) Range: 5-15 GLOB 3.6 g/dL (Normal) Range: 2.7-4.2 GLU 112 mg/dL (Abnormal) Range: 70-110 Comments: Fasting Glucose result from 110 to <126 mg/dL suggests IMPAIRED HOMEOSTASIS per A.D.A. criteria. K 4.3 mmol/L (Normal) Range: 3.5-5.1 NA 139 mmol/L (Normal) Range: 136-145 T BILI 0.40 mg/dL (Normal) Range: 0.00-1.00 T PROT 7.5 g/dL (Normal) Range: 6.4-8.2 :06 CPK TOTAL 26 U/L (Normal) Range: 21-215 :06 LIPID LDL <TEST NOT PERFORMED> mg/dL Range: 0-130 (Normal) VLDL 81 mg/dL (Abnormal) Range: 5-40 CHOL 254 mg/dL (Abnormal) Comments: <200 mg/dL Desirable 200-240 mg/dL Borderline >240 mg/dL High Risk HDL 38 mg/dL (Normal) Comments: Reference Range HDL <40 mg/dL Low HDL Cholesterol HDL >or= 60 mg/dL High HDL Cholesterol TRIG 406 mg/dL (Abnormal) Comments: TRIGLYCERIDE IS GREATER THAN 400 mg/dL. LDL RESULT IS INVALID AND WILL NOT BE REPORTED.Serum Triglycerides Reference Interval Normal <150 mg/dL Bor derline high 150 - 199 mg/dL High 200 - 499 mg/dL Very High > or = 500 mg/dL 11-Kky-861990:29 CPK TOTAL 33 U/L (Normal) Range: 21-215 85-Xay-884995:29 LIPID CHOL 230 mg/dL (Abnormal) Comments: <200 mg/dL Desirable 200-240 mg/dL Borderline >240 mg/dL High Risk HDL 36 mg/dL (Normal) Comments: Reference Range HDL <40 mg/dL Low HDL Cholesterol HDL >or= 60 mg/dL High HDL Cholesterol LDL 148 mg/dL (Abnormal) Range: 0-130 TRIG 228 mg/dL (Abnormal) Comments: Serum Triglycerides Reference Interval Normal <150 mg/dL Borderline high 150 - 199 mg/dL High 200 - 499 mg/dL Very High > or = 500 mg/dL VLDL 46 mg/dL (Abnormal) Range: 5-40 07-Cra-698216:29 LIVER ALB 3.8 g/dL (Normal) Range: 3.4-5.0 ALK P 95 U/L (Normal) Range: 50-136 ALT 32 U/L (Normal) Range: 30-65 AST 18 U/L (Normal) Range: 15-37 D BILI 0.07 mg/dL (Normal) Range: 0.00-0.30 T BILI 0.39 mg/dL (Normal) Range: 0.00-1.00 T PROT 7.6 g/dL (Normal) Range: 6.4-8.2 30-Zln-853557:52 URIC 7.9 mg/dL (Abnormal) Range: 2.6-6.0 65-Hld-075781:31 CBCD,SMEAR DIFF BAND 1 % (Normal) Range: 0-5 CELLS COUNTED 100 (Normal) HCT 36.5 % (Abnormal) Range: 37-47 HGB 12.9 g/dL (Normal) Range: 12.0-16.0 LYMPH 27 % (Normal) Range: 19-41 MCH 31.9 pg (Normal) Range: 27.0-32.0 MCHC 35.2 g/dL (Normal) Range: 32-36 MCV 90.6 fL (Normal) Range: 81-99 MONOCYTE 4 % (Normal) Range: 0-10 PLT 250 K/mm3 (Normal) Range: 150-450 PLT EST SeeNote (Normal) Comments: Result: ADEQUATE RBC 4.03 {M/mm3} (Abnormal) Range: 4.2-5.4 RDW 14.2 % (Normal) Range: 11.6-14.6 RED CELL MORPH SeeNote {NORMAL} (Normal) Comments: Result: NORM C+C SEGS 68 % (Normal) Range: 47-70 WBC 7.1 K/mm3 (Normal) Range: 4.4-11.0 :31 COMP METABOLIC A/G 0.9 {RATIO} (Normal) Range: 0.9-2.4 ALB 3.8 g/dL (Normal) Range: 3.4-5.0 ALK P 105 U/L (Normal) Range: 50-136 ALT 39 U/L (Normal) Range: 30-65 AST 22 U/L (Normal) Range: 15-37 BUN 19 mg/dL (Abnormal) Range: 7-18 BUN/CRE 21.1 {RATIO} (Abnormal) Range: 10-20 CA 9.5 mg/dL (Normal) Range: 8.5-10.1 CL 99 mmol/L (Normal) Range: 98-107 CO2 27.8 mmol/L (Normal) Range: 21.0-32.0 CREAT,SERUM 0.9 mg/dL (Normal) Range: 0.6-1.0 GAP 10 (Normal) Range: 5-15 GLOB 4.2 g/dL (Normal) Range: 2.7-4.2 GLU 102 mg/dL (Normal) Range: 70-110 K 3.8 mmol/L (Normal) Range: 3.5-5.1 NA 137 mmol/L (Normal) Range: 136-145 T BILI 0.42 mg/dL (Normal) Range: 0.00-1.00 T PROT 8.0 g/dL (Normal) Range: 6.4-8.2 :31 LIPID CHOL 294 mg/dL (Abnormal) Comments: <200 mg/dL Desirable 200-240 mg/dL Borderline >240 mg/dL High Risk HDL 33 mg/dL (Abnormal) Comments: Reference Range HDL <40 mg/dL Low HDL Cholesterol HDL >or= 60 mg/dL High HDL Cholesterol LDL 204 mg/dL (Abnormal) Range: 0-130 TRIG 287 mg/dL (Abnormal) Comments: Serum Triglycerides Reference Interval Normal <150 mg/dL Borderline high 150 - 199 mg/dL High 200 - 499 mg/dL Very High > or = 500 mg/dL VLDL 57 mg/dL (Abnormal) Range: 13-May-200810:31 ROUTINE UA BILIRUBIN URINE SeeNote (Normal) Comments: Result: NEGATIVE CLARITY SeeNote (Normal) Comments: Result: SL CLOUDY COLOR YELLOW (Normal) GLUCOSE, UR SeeNote (Normal) Comments: Result: NEGATIVE KETONE UR SeeNote mg/dL (Normal) Comments: Result: NEGATIVE LEUK ESTERASE TRACE (Abnormal) NITRITE UR SeeNote (Normal) Comments: Result: NEGATIVE OCCULT BLOOD-UR SeeNote (Normal) Comments: Result: NEGATIVE pH UR 5.5 (Normal) Range: 5.0-8.0 PROT DIPSTX SeeNote (Normal) Comments: Result: NEGATIVE SP.GR. DIPSTX >=1.030 (Normal) Range: 1.002-1.030 UROBILI 0.2 EU/dl (Normal) Range: 0.2 - 1.0 :17 LIPID CHOL 222 mg/dL (Abnormal) Comments: <200 mg/dL Desirable 200-240 mg/dL Borderline >240 mg/dL High Risk HDL 34 mg/dL (Abnormal) Comments: Reference Range HDL <40 mg/dL Low HDL Cholesterol HDL >or= 60 mg/dL High HDL Cholesterol LDL 139 mg/dL (Abnormal) Range: 0-130 TRIG 245 mg/dL (Abnormal) Comments: Serum Triglycerides Reference Interval Normal <150 mg/dL Borderline high 150 - 199 mg/dL High 200 - 499 mg/dL Very High > or = 500 mg/dL VLDL 49 mg/dL (Abnormal) Range: 40 :17 LIVER ALB 3.7 g/dL (Normal) Range: 3.4-5.0 ALK P 85 U/L (Normal) Range: 50-136 ALT 41 U/L (Normal) Range: 30-65 AST 17 U/L (Normal) Range: 15-37 D BILI 0.05 mg/dL (Normal) Range: 0.00-0.30 T BILI 0.32 mg/dL (Normal) Range: 0.00-1.00 T PROT 7.5 g/dL (Normal) Range: 6.4-8.2 [id number] CBCD,SMEAR DIFF CELLS COUNTED 100 (Normal) EOS 2 % (Normal) Range: 0-5 HCT 36.1 % (Abnormal) Range: 37-47 HGB 12.5 g/dL (Normal) Range: 12.0-16.0 LYMPH 28 % (Normal) Range: 19-41 MCH 31.4 pg (Normal) Range: 27.0-32.0 MCHC 34.6 g/dL (Normal) Range: 32-36 MCV 90.7 fL (Normal) Range: 81-99 MONOCYTE 3 % (Normal) Range: 0-10 PLT 250 K/mm3 (Normal) Range: 150-450 PLT EST SeeNote (Normal) Comments: Result: ADEQUATE RBC 3.98 {M/mm3} (Abnormal) Range: 4.2-5.4 RDW 14.5 % (Normal) Range: 11.6-14.6 RED CELL MORPH SeeNote {NORMAL} (Normal) Comments: Result: NORM C+C SEGS 67 % (Normal) Range: 47-70 WBC 6.2 K/mm3 (Normal) Range: 4.4-11.0 [id number] COMP METABOLIC A/G 1.0 {RATIO} (Normal) Range: 0.9-2.4 ALK P 87 U/L (Normal) Range: 50-136 ALT 39 [iU]/L (Normal) Range: 30-65 AST 22 U/L (Normal) Range: 15-37 CA 9.0 mg/dL (Normal) Range: 8.5-10.1 CL 103 mmol/L (Normal) Range: 98-107 CO2 26.8 mmol/L (Normal) Range: 21.0-32.0 GAP 10 (Normal) Range: 5-15 K 3.3 mmol/L (Abnormal) Range: 3.5-5.1 NA 140 mmol/L (Normal) Range: 136-145 T BILI 0.46 mg/dL (Normal) Range: 0.00-1.00 ALB 3.6 g/dL (Normal) Range: 3.4-5.0 BUN 15 mg/dL (Normal) Range: 7-18 BUN/CRE 18.8 {RATIO} (Normal) Range: 10-20 CREAT,SERUM 0.8 mg/dL (Normal) Range: 0.6-1.0 GLOB 3.7 g/dL (Normal) Range: 2.7-4.2 GLU 92 mg/dL (Normal) Range: 70-110 T PROT 7.3 g/dL (Normal) Range: 6.4-8.2 :45 D BILI 0.05 mg/dL (Normal) Range: 0.00-0.30 :45 LIPID CHOL 218 mg/dL (Abnormal) Comments: <200 mg/dL Desirable 200-240 mg/dL Borderline >240 mg/dL High Risk HDL 30 mg/dL (Abnormal) Comments: Reference Range HDL <40 mg/dL Low HDL Cholesterol HDL >or= 60 mg/dL High HDL Cholesterol LDL 123 mg/dL (Normal) Range: 0-130 TRIG 324 mg/dL (Abnormal) Comments: Serum Triglycerides Reference Interval Normal <150 mg/dL Borderline high 150 - 199 mg/dL High 200 - 499 mg/dL Very High > or = 500 mg/dL VLDL 65 mg/dL (Abnormal) Range: 5-40 :41 CBCD,SMEAR DIFF BAND 5 % (Normal) Range: 0-5 CELLS COUNTED 100 (Normal) EOS 1 % (Normal) Range: 0-5 HCT 37.0 % (Normal) Range: 37-47 HGB 12.6 g/dL (Normal) Range: 12.0-16.0 LYMPH 32 % (Normal) Range: 19-41 MCH 32.3 pg (Abnormal) Range: 27.0-32.0 MCHC 34.1 g/dL (Normal) Range: 32-36 MCV 94.6 fL (Normal) Range: 81-99 MONOCYTE 9 % (Normal) Range: 0-10 PLT 219 K/mm3 (Normal) Range: 150-450 PLT EST SeeNote (Normal) Comments: Result: ADEQUATE RBC 3.92 {M/mm3} (Abnormal) Range: 4.2-5.4 RDW 13.6 % (Normal) Range: 11.6-14.6 RED CELL MORPH SeeNote {NORMAL} (Normal) Comments: Result: NORM C+C SEGS 53 % (Normal) Range: 47-70 WBC 5.5 K/mm3 (Normal) Range: 4.4-11.0 :41 COMP METABOLIC A/G 0.9 {RATIO} (Normal) Range: 0.9-2.4 ALB 3.6 g/dL (Normal) Range: 3.4-5.0 ALK P 91 U/L (Normal) Range: 50-136 ALT 35 [iU]/L (Normal) Range: 30-65 AST 20 U/L (Normal) Range: 15-37 BUN 20 mg/dL (Abnormal) Range: 7-18 BUN/CRE 25.0 {RATIO} (Abnormal) Range: 10-20 CA 9.5 mg/dL (Normal) Range: 8.5-10.1 CL 98 mmol/L (Normal) Range: 98-107 CO2 29.4 mmol/L (Normal) Range: 21.0-32.0 Comments: Please Note Reference Interval Change CREAT,SERUM 0.8 mg/dL (Normal) Range: 0.6-1.0 GAP 9 (Normal) Range: 5-15 GLOB 4.0 g/dL (Normal) Range: 2.7-4.2 Comments: Please Note Reference Interval Change GLU 108 mg/dL (Normal) Range: 70-110 K 3.7 mmol/L (Normal) Range: 3.5-5.1 NA 136 mmol/L (Normal) Range: 136-145 T BILI 0.46 mg/dL (Normal) Range: 0.00-1.00 T PROT 7.6 g/dL (Normal) Range: 6.4-8.2 :41 LIPID CHOL 290 mg/dL (Abnormal) Comments: <200 mg/dL Desirable 200-240 mg/dL Borderline >240 mg/dL High Risk HDL 33 mg/dL (Abnormal) Comments: Reference Range HDL <40 mg/dL Low HDL Cholesterol HDL >or= 60 mg/dL High HDL Cholesterol LDL 205 mg/dL (Abnormal) Range: 0-130 TRIG 259 mg/dL (Abnormal) Comments: Serum Triglycerides Reference Interval Normal <150 mg/dL Borderline high 150 - 199 mg/dL High 200 - 499 mg/dL Very High > or = 500 mg/dL VLDL 52 mg/dL (Abnormal) Range: 5-40 [id number] LIPID CHOL 252 mg/dL (Abnormal) Comments: <200 mg/dL Desirable 200-240 mg/dL Borderline >240 mg/dL High Risk HDL 27 mg/dL (Abnormal) Comments: Reference Range HDL <40 mg/dL Low HDL Cholesterol HDL >or= 60 mg/dL High HDL Cholesterol LDL 170 mg/dL (Abnormal) Range: 0-130 TRIG 277 mg/dL (Abnormal) Comments: Serum Triglycerides Reference Interval Normal <150 mg/dL Borderline high 150 - 199 mg/dL High 200 - 499 mg/dL Very High > or = 500 mg/dL VLDL 55 mg/dL (Abnormal) Range: 5-40 :14 LIVER ALB 3.1 g/dL (Abnormal) Range: 3.4-5.0 ALK P 94 U/L (Normal) Range: 50-136 ALT 51 [iU]/L (Normal) Range: 30-65 AST 31 U/L (Normal) Range: 15-37 D BILI 0.10 mg/dL (Normal) Range: 0.00-0.30 T BILI 0.36 mg/dL (Normal) Range: 0.00-1.00 T PROT 7.8 g/dL (Normal) Range: 6.4-8.2 :45 BREAST R P-BRER (Normal) Comments: OPERATION Biopsy, breast sentinel node, needle localization, right PRE-OPERATIVE DIAGNOSIS Invasive lobular carcinoma, right breast POST-OPERATIVE DIAGNOSIS Same; single long sutsure is lateral/doubl e long is medial/wire anterior/double short is inferior (specimen 1) TISSUE SUBMITTED A - Right breast lymphoid tissue (FS), B - Additional lymph tissue right breast (FS), C - Right breast tissue for margins D - Inferior margin, right breast FROZEN SECTION DIAGNOSIS A. Right breast, lymphoid tissue: Two lymph nodes, negative for metastatic carcinoma. B. Additional lymph node tissue, right ben ast: Two lymph nodes, negative for metastatic carcinoma. : 01/12/07 MICROSCOPIC DIAGNOSIS A. Right breast, sentinel lymph nodes: Two lymph nodes, negative for metastatic carcinoma. B. Kamlesh tional sentinel lymph node, right breast: Two lymph nodes, negative for metastatic carcinoma. C. Right breast, needle localization biopsy: No evidence of residual carcinoma. See Comment. Changes c onsistent with previous biopsy site. Fibrocystic changes and intraductal hyperplasia without atypia. Skin - no pathologic diagnosis. D. Inferior border right breast: Fibrocystic changes and intradu ctal hyperplasia without atypia. Negative for malignancy. : 01/16/07 COMMENT A & B - Four out of 4 lymph nodes are negative for metastatic carcinoma. The lymph nodes are negative for met astatic carcinoma on multiple H & E levels and immunohistochemical stains for cytokeratins ([id number]). Reference is made to the patient's right breast core biopsy from 12/05 () with chanell gnosis of invasive lobular carcinoma. The tumor in the previous biopsy measures 0.5 cm in greatest dimension (measured on microscopic slide). Immunohistochemistry shows the tumor is positive for Estrogen receptor, positive for Progesterone receptor and equivocal for overexpression of Her2 dameon. PATHOLOGIC STAGE: T1 N0 Mx (including previous specimen ). GROSS DESCRIPTION A - Re ceived fresh for frozen section diagnosis labeled with patient name and number and designated lymphoid tissue right breast is a piece of fibroadipose tissue measuring 5.5 x 2.5 x 1 cm. Two lymph no stella are identified. Four lymph nodes are submitted in entirety for frozen section diagnosis. The entire specimen is submitted as follows: 1FS - one lymph node, 2FS-4FS - frozen section one lymph n ode, 5 - rest of the specimen. B - Received fresh for frozen section diagnosis labeled with patient name and number and designated additional lymph tissue right breast is a piece of adipose tissu e measuring 4 x 2 x 1.2 cm. Two lymph nodes are identified. The lymph nodes are submitted for frozen section diagnosis in their entirety. The entire specimen is submitted in four cassettes as foll ows: 1FS & 2FS - one lymph node, 3FS & 4FS - one lymph node, 5 - rest of the specimen. / : 01/12/07 C - Received fresh for intraoperative consultation labeled with patient name and numb er and designated right breast tissue for margins is a piece of fibroadipose tissue with needle localization and specimen x-ray measuring 12 x 6 x 2.5 cm. A strip of skin is noted on the anterior margin measuring 5.5 x 0.5 cm. The specimen is oriented as follows: single long suture lateral, double long suture medial, wire is anterior, double short is inferior. The specimen is inked as follow s: superior - green, inferior - blue, anterior - yellow and posterior - black. The specimen is serially sectioned from lateral to medial margin and reveals a su ovoid tumor mass measuring 1.3 x 1 x 1 cm. This mass is 0.5 cm from the closest anterior margin. This information is conveyed to the surgeon intraoperatively. Sections through the rest of the specimen reveal yellow adipose cut surface s with a small amount of fibrous area. Orange Picker Machine Operator sections are submitted in 10 cassettes as follows: 1 - perpendicular anterior margin including skin, 2 - perpendicular posterior margin, 3 - pe rpendicular lateral margin, 4 - perpendicular medial margin, 5 - perpendicular superior margin, 6-8 - perpendicular inferior margin including indurated mass, 9 & 10 - business center representative sections adjac ent to and away from the tumor mass. D - Received fresh labeled with patient name and number and designated inferior border right breast is a piece of fibroadipose tissue measuring 10 x 10 x 1 c m. The specimen is inked as follows: one surface - black ink, other surface - blue ink. Serial sections do not reveal any mass lesions and reveal mostly adipose cut surfaces mixed with small amount of fibrous area. Orange Picker Machine Operator sections are submitted in five cassettes. / SJ:katherine 01/13/07 TC:5 REPORT SIGNED: CARL ROUSSEAU 01/16/0712-Jan-20070:00 IMMUNO P-IMM (Normal) Comments: REPORT SIGNED: CARL ROUSSEAU 01/16/0710-Jan-20073:03 TROPONIN-I < 0.04 ng/mL (Normal) Comments: COMMENTS: ROOM 6 Comments: TROPONIN-I EXPECTED VALUES < 0.50 NEGATIVE 0.50 - 1.49 INDETERMINANT > OR = 1.50 SUGGEST MO [id number] BMP Comments: COMMENTS: PAT,OR 01/12/07 BUN 11 mg/dL (Normal) Range: 7-18 BUN/CRE 13.8 {RATIO} (Normal) Range: 10-20 CA 8.7 mg/dL (Normal) Range: 8.5-10.1 CL 102 mmol/L (Normal) Range: 98-107 CO2 30.6 mmol/L (Abnormal) Range: 22.0-29.0 CREAT,SERUM 0.8 mg/dL (Normal) Range: 0.6-1.0 GAP 4 (Abnormal) Range: 5-15 GLU 118 mg/dL (Abnormal) Range: 70-110 Comments: Fasting Glucose result from 110 to <126 mg/dL suggests IMPAIRED HOMEOSTASIS per A.D.A. criteria. K 3.8 mmol/L (Normal) Range: 3.5-5.1 NA 137 mmol/L (Normal) Range: 136-145 [id number] CBC Comments: COMMENTS: PAT,OR 01/12/07 HCT 36.2 % (Abnormal) Range: 37-47 HGB 12.6 g/dL (Normal) Range: 12.0-16.0 MCH 32.0 pg (Normal) Range: 27.0-32.0 MCHC 34.7 g/dL (Normal) Range: 32-36 MCV 92.2 fL (Normal) Range: 81-99 PLT 222 K/mm3 (Normal) Range: 150-450 RBC 3.93 {M/mm3} (Abnormal) Range: 4.2-5.4 RDW 14.1 % (Normal) Range: 11.6-14.6 WBC 7.1 K/mm3 (Normal) Range: 4.4-11.0 [id number]:02 CHEST, PA AND LATERAL Radiology Report See Note (Normal) Comments: Exam Number: [id number] PA AND LATERAL CHEST HISTORYCough and shortness of breath. Cardiac configuration is normal. No acute infiltrate, effusion orpneumothorax is identified. IMPRESSIONNo acute change noted in the lungs. Reported By: AUSTIN CRUZ M.D. :01 LIPID CHOL 231 mg/dL (Abnormal) Comments: <200 mg/dL Desirable 200-240 mg/dL Borderline >240 mg/dL High Risk HDL 30 mg/dL (Abnormal) Comments: Reference Range HDL <40 mg/dL Low HDL Cholesterol HDL >or= 60 mg/dL High HDL Cholesterol LDL 139 mg/dL (Abnormal) Range: 0-130 TRIG 310 mg/dL (Abnormal) Comments: Serum Triglycerides Reference Interval Normal <150 mg/dL Borderline high 150 - 199 mg/dL High 200 - 499 mg/dL Very High > or = 500 mg/dL VLDL 62 mg/dL (Abnormal) Range: 5-40 :01 LIVER ALB 3.3 g/dL (Abnormal) Range: 3.4-5.0 ALK P 75 U/L (Normal) Range: 50-136 ALT 38 [iU]/L (Normal) Range: 30-65 AST 18 U/L (Normal) Range: 15-37 D BILI 0.07 mg/dL (Normal) Range: 0.00-0.30 T BILI 0.44 mg/dL (Normal) Range: 0.00-1.00 T PROT 7.2 g/dL (Normal) Range: 6.4-8.2 :00 IMMUNO P-IMM (Normal) Comments: REPORT SIGNED: LAVERNE NORMAN 12/15/0614-Dec-20060:00 R BREAST P-BRBXR (Normal) Comments: OPERATION Right stereotactic breast biopsy PRE- OPERATIVE DIAGNOSIS Abnormal mammogram TISSUE SUBMITTED Right breast tissue MICROSCOPIC DIAGNOSIS Right breast, core biopsy: Invasive lobular carcinom a. Lobular carcinoma in situ. AM: 12/15/06 COMMENT Immunohistochemistry is being performed on sections of the tumor and the results from this study will be reported separately. This case h as been reviewed in consultation with Dr. Rousseau who concurs with the above diagnosis. IDC:SJ GROSS DESCRIPTION Received in formalin labeled with patient name and number and designated right breast are multiple fragments of fibroadipose tissue mixed with blood clot measuring in aggregate 5 x 3 x 0.3 cm. The specimen is totally submitted in two cassettes. / SJ: 12/14/06 TC:0 REPORT SIGNED: LAVERNE NORMAN 12/15/0622-Nov-200623-Gkj-966198:17 MAMM, UILAT DIAG DIGITAL & CAD Radiology Report See Note (Normal) Comments: Exam Number: [id number] UNILATERAL RIGHT DIAGNOSTIC MAMMOGRAM CLINICAL STATEMENTAbnormal mammogram. COMPARISONComparison is made to prior studies of 11-11-06 and . The patient returns for spot co mpression views of the right breastobtained in the MLO and CC projection. With spot compression one notes a 6 mm mass in the upper-outerquadrant of the right breast in the far posterior depth. This h asill-defined, somewhat spiculated margins, particularly on the CCcompression views. This is a new lesion when compared to the priormammogram of 1998. Just anterior to this is a benign appearing,stabl e intramammary lymph node. IMPRESSION1. 6 mm right breast mass with ill- defined, spiculated border. Thisis considered a suspicious abnormality and further evaluation withbiopsy would be suggested.2. BIRADS code 4 for suspicious. Followup with right breast biopsy. A letter regarding these results has been sent to the patient. This interpretation was rendered by a radiologist certified [facility] mography Quality Standards Act of 1992 (MQSA). The mammogramswere also examined with computer-aided detection software([employer], [employer] Reported By: BRIAN FOSTER M.D. [id number] MAMM, BILAT SCRN DIGITAL & CAD Radiology Report See Note (Normal) Comments: Exam Number: [id number] MAMMOGRAM, BILATERAL DIGITAL SCREENING AND CAD HISTORY Routine screening. Full field digital images were obtained in mediolateral oblique andcraniocaudal projections . CAD image s were reviewed. The current study is compared to the examinations of from [facility]. There is a mild extent of fibroglandular parenchyma present. There isno skin thickening or retrac tion, architectural distortion, or clusterof suspicious microcalcifications. There is a small, well-defineddensity in the upper-inner quadrant of the left breast which isstable. There is a small, well- defined density in the upper-outerquadrant of the right breast which is stable. There is a seconddensity in the upper-outer quadrant of the right breast which is new.Spot compression views of this new density are recommended for furtherevaluation. IMPRESSION1. There is a new density on the right. Spot compression views andpossibly ultrasound are recommended. FINAL ASSESSMENTNeed additional imaging evaluation. BIRADS Category 0. A letter regarding these results has been sent to the patient. This interpretation was rendered by a radiologist certified under theMammography Quality Standards Act of 1992 (MQSA). The mammograms werealso examined with computer-aided detection software ([employer] Reported By: NNEKA FITZPATRICK M.D. [id number] TYE-D [id number] TYE-DIRECT 71 U/mL (Normal) Range: 0-99 Comments: Negative <100 Equivocal 100 - 120 Positive >120Performed At: [facility] [place], [place] [id number]:02 CBCD,SMEAR DIFF BAND 1 % (Normal) Range: 0-5 CELLS COUNTED 100 (Normal) EOS 4 % (Normal) Range: 0-5 HCT 38.3 % (Normal) Range: 37-47 HGB 13.1 g/dL (Normal) Range: 12.0-16.0 LYMPH 33 % (Normal) Range: 19-41 MCH 31.1 pg (Normal) Range: 27.0-32.0 MCHC 34.3 g/dL (Normal) Range: 32-36 MCV 90.6 fL (Normal) Range: 81-99 MONOCYTE 4 % (Normal) Range: 0-10 PLT 231 K/mm3 (Normal) Range: 150-450 PLT EST SeeNote (Normal) Comments: Result: ADEQUATE RBC 4.22 {M/mm3} (Normal) Range: 4.2-5.4 RDW 14.0 % (Normal) Range: 11.6-14.6 RED CELL MORPH SeeNote {NORMAL} (Normal) Comments: Result: NORM C&C SEGS 58 % (Normal) Range: 47-70 WBC 5.9 K/mm3 (Normal) Range: 4.4-11.0 39-[id number]:02 COMP METABOLIC A/G 0.9 {RATIO} (Normal) Range: 0.9-2.4 ALB 3.6 g/dL (Normal) Range: 3.4-5.0 ALK P 89 U/L (Normal) Range: 50-136 ALT 37 [iU]/L (Normal) Range: 30-65 AST 18 U/L (Normal) Range: 15-37 BUN 16 mg/dL (Normal) Range: 7-18 BUN/CRE 20.0 {RATIO} (Normal) Range: 10-20 CA 9.3 mg/dL (Normal) Range: 8.5-10.1 CL 104 mmol/L (Normal) Range: 98-107 CO2 29.8 mmol/L (Abnormal) Range: 22.0-29.0 CREAT,SERUM 0.8 mg/dL (Normal) Range: 0.6-1.0 GAP 7 (Normal) Range: 5-15 GLOB 4.1 g/dL (Abnormal) Range: 2.3-3.5 GLU 104 mg/dL (Normal) Range: 70-110 K 3.9 mmol/L (Normal) Range: 3.5-5.1 NA 141 mmol/L (Normal) Range: 136-145 T BILI 0.34 mg/dL (Normal) Range: 0.00-1.00 T PROT 7.7 g/dL (Normal) Range: 6.4-8.2 50-[id number]:02 PFLIP CHOL 291 mg/dL (Abnormal) Comments: <200 mg/dL Desirable 200-240 mg/dL Borderline >240 mg/dL High Risk HDL 32 mg/dL (Abnormal) Comments: Reference Range HDL <40 mg/dL Low HDL Cholesterol HDL >or= 60 mg/dL High HDL Cholesterol LDL 196 mg/dL (Abnormal) Range: 0-130 TRIG 316 mg/dL (Abnormal) Comments: Serum Triglycerides Reference Interval Normal <150 mg/dL Borderline high 150 - 199 mg/dL High 200 - 499 mg/dL Very High > or = 500 mg/dL VLDL 63 mg/dL (Abnormal) Range: 5-40 [id number]:02 ROUTINE UA BILIRUBIN URINE SeeNote (Normal) Comments: Result: NEGATIVE CLARITY SeeNote (Normal) Comments: Result: SL CLOUDY COLOR YELLOW (Normal) GLUCOSE, UR SeeNote (Normal) Comments: Result: NEGATIVE KETONE UR SeeNote mg/dL (Normal) Comments: Result: NEGATIVE LEUK ESTERASE SeeNote (Normal) Comments: Result: NEGATIVE NITRITE UR SeeNote (Normal) Comments: Result: NEGATIVE OCCULT BLOOD-UR SeeNote (Normal) Comments: Result: NEGATIVE pH UR 5.0 (Normal) Range: 5.0-8.0 PROT DIPSTX SeeNote (Normal) Comments: Result: NEGATIVE SP.GR. DIPSTX >=1.030 (Normal) Range: 1.002-1.030 UROBILI 0.2 EU/dl (Normal) Range: 0.2 - 1.0 Plan of Care Name Dates Details Instructions Nonsmoker : Follow up if no improvement or if symptoms worsen Indication: Nonsmoker Nonsmoker : Eprescribed prescriptions (G8553) Indication: Nonsmoker Nonsmoker : Eprescribed prescriptions (G8553) Indication: Nonsmoker Lupus (systemic lupus erythematosus) : Follow up in 4 months Indication: Lupus (systemic lupus erythematosus) BMI 50.0-59.9, adult : Eprescribed prescriptions (G8553) Indication: BMI 50.0-59.9, adult Disability of walking : Follow up in 3 months Indication: Disability of walking Arthritis : Eprescribed prescriptions (G8553) Indication: Arthritis Bronchitis : Acute Bronchitis: acute bronchitis Indication: Bronchitis Chest tightness : Follow up if no improvement or if symptoms worsen Indication: Chest tightness Nonsmoker : Eprescribed prescriptions (G8553) Indication: Nonsmoker BMI 50.0-59.9, adult : Follow up in 4 months Indication: BMI 50.0-59.9, adult Diabetes mellitus type II, controlled, with no complications : Eprescribed prescriptions (G8553) Indication: Diabetes mellitus type II, controlled, with no complications Hypercholesteremia : Follow up in 4 months Indication: Hypercholesteremia Hypercholesteremia : Reviewed Lab Indication: Hypercholesteremia Hypertension : Reviewed Diagnostic Tests Indication: Hypertension Pain, chronic : Reviewed Lab Indication: Pain, chronic Diabetes mellitus type II, controlled, with no complications : Reviewed Lab Indication: Diabetes mellitus type II, controlled, with no complications Diabetes mellitus type II, controlled, with no complications : Eprescribed prescriptions (G8553) Indication: Diabetes mellitus type II, controlled, with no complications Hypercholesteremia : Follow up in 3 -4 months in Nov Indication: Hypercholesteremia Diabetes mellitus type II, controlled, with no complications : Eprescribed prescriptions (G8553) Indication: Diabetes mellitus type II, controlled, with no complications BMI 50.0-59.9, adult : Follow up in 3 months Indication: BMI 50.0-59.9, adult Diabetes mellitus type II, controlled, with no complications : Eprescribed prescriptions (G8553) Indication: Diabetes mellitus type II, controlled, with no complications Cellulitis of forearm : Eprescribed prescriptions (G8553) Indication: Cellulitis of forearm Knee pain : Follow up if no improvement or if symptoms worsen Indication: Knee pain Hypertension : HTN/CAD Red Flags Indication: Hypertension Diabetes mellitus type II, controlled, with no complications : Eprescribed prescriptions (G8553) Indication: Diabetes mellitus type II, controlled, with no complications Diabetes mellitus type II, controlled, with no complications : Diabetes and Exercise: Preventing Low Blood Sugar: blood sugar Indication: Diabetes mellitus type II, controlled, with no complications Gout : Follow up in 1 month- wt loss, gouty attacks ? Indication: Gout Hypertension : Diet, Exercise, and Wt loss Indication: Hypertension Hypertension : HTN/CAD Red Flags Indication: Hypertension Hypertension : Continue Current Prescription(s) Indication: Hypertension Gout : Reviewed Lab Indication: Gout BMI 50.0-59.9, adult : Follow up in 3 months Indication: BMI 50.0-59.9, adult BMI 50.0-59.9, adult : Follow up in 1 month for labs then follow up Indication: BMI 50.0-59.9, adult Hypercholesteremia : Follow up in 3 months Indication: Hypercholesteremia Hypertension : Eprescribed prescriptions (G8553) Indication: Hypertension Vitamin D deficiency : Blood Pressure: hypertension Indication: Vitamin D deficiency Vitamin D deficiency : Eprescribed prescriptions (G8553) Indication: Vitamin D deficiency Diabetes mellitus type II, controlled, with no complications : Eprescribed prescriptions (G8553) Indication: Diabetes mellitus type II, controlled, with no complications Diabetes mellitus type II, controlled, with no complications : Eprescribed prescriptions (G8553) Indication: Diabetes mellitus type II, controlled, with no complications Diabetes mellitus type II, controlled, with no complications : Blood Glucose Test: diabetes Indication: Diabetes mellitus type II, controlled, with no complications Diabetes mellitus type II, controlled, with no complications : Eprescribed prescriptions (G8553) Indication: Diabetes mellitus type II, controlled, with no complications Diabetes mellitus type II, controlled, with no complications : Follow up Indication: Diabetes mellitus type II, controlled, with no complications Hypercholesteremia : High Cholesterol (Hypercholesterolemia) *: cardiovascular health Indication: Hypercholesteremia ALLERGIC RHINITIS DUE TO OTHER ALLERGEN : Follow up if no improvement or if symptoms worsen Indication: ALLERGIC RHINITIS DUE TO OTHER ALLERGEN ALLERGIC RHINITIS DUE TO OTHER ALLERGEN : Allergy proofing Indication: ALLERGIC RHINITIS DUE TO OTHER ALLERGEN ALLERGIC RHINITIS DUE TO OTHER ALLERGEN : Allergy control Indication: ALLERGIC RHINITIS DUE TO OTHER ALLERGEN ALLERGIC RHINITIS DUE TO OTHER ALLERGEN : *URI Symptoms Indication: ALLERGIC RHINITIS DUE TO OTHER ALLERGEN Acute sinusitis, unspecified : Sinus Headache: headaches Indication: Acute sinusitis, unspecified Hypercholesteremia : High Cholesterol (Hypercholesterolemia) *: cardiovascular health Indication: Hypercholesteremia Hypercholesteremia : High Cholesterol (Hypercholesterolemia) *: cardiovascular health Indication: Hypercholesteremia Dorsalgia, unspecified : Low Back Pain: lower back pain Indication: Dorsalgia, unspecified Hypercholesteremia : Reviewed Diagnostic Tests Indication: Hypercholesteremia Impaired fasting glucose : Reviewed Diagnostic Tests Indication: Impaired fasting glucose Gout, unspecified : FOLLOW UP IN 1 WEEK Indication: Gout, unspecified Hypercholesteremia : Cholesterol - Medication Side Effects Indication: Hypercholesteremia Hypertension : HTN/CAD Red Flags Indication: Hypertension Planned Observations TSH ([id number])Indication: Diabetes mellitus type II, controlled, with no complications On: : Request MICROALBUMIN: CREATININE RATIO ([id number]) AND ([id number])Indication: Diabetes mellitus type II, controlled, with no complications On: Request CBC, Platelets & Auto Diff ([id number])Indication: Diabetes mellitus type II, controlled, with no complications On: Request Lipid Panel ([id number])Indication: Diabetes mellitus type II, controlled, with no complications On: Request Metabolic Panel, Comprehensive ([id number])Indication: Diabetes mellitus type II, controlled, with no complications On: Request HgA1C , Office ([id number])Indication: Diabetes mellitus type II, controlled, with no complications On: Request Blood Glucose , Office ([id number])Indication: Diabetes mellitus type II, controlled, with no complications On: : Request URINALYSIS, W/ MICRO ([id number])Indication: Diabetes mellitus type II, controlled, with no complications On: :03 Request MICROALBUMIN: CREATININE RATIO ([id number]) AND ([id number])Indication: Diabetes mellitus type II, controlled, with no complications On: :03 Request Blood Glucose , Office ([id number])Indication: Diabetes mellitus type II, controlled, with no complications On: 76-Nhy-461189:12 Request PARATHORMONE ([id number])Indication: Hypercalcemia On: Request ALKALINE PHOSPHATASE ([id number])Indication: Elevated alkaline phosphatase level On: Request CALCIUM, IONIZED ([id number])Indication: Hypercalcemia On: Request GGT (GAMMA GLUTAMYLTRANSFERASE) ([id number])Indication: Elevated alkaline phosphatase level On: Request GGT (GAMMA GLUTAMYLTRANSFERASE) ([id number])Indication: Diabetes mellitus type II, controlled, with no complications On: Request CALCIFIDIOL ([id number]) VIT D 25Indication: Vitamin D deficiency On: 3-Zet-024316:51 Request Blood Glucose , Office ([id number])Indication: Impaired fasting glucose On: 41-Aed-375107:09 Request Metabolic Panel, Basic ([id number])Indication: Hypertension On: 43-Kwu-074584:01 Request Comments: recheck in one week URINE MIRANDA CULTURE-ADAM COL COUNT ([id number])Indication: Dysuria On: 53-Ehw-397851:02 Request Lipid Panel ([id number])Indication: Hypercholesteremia On: :23 Request HEPATIC FUNCTION PANEL ([id number])Indication: Hypercholesteremia On: :23 Request Metabolic Panel, Comprehensive ([id number])Indication: Hypercholesteremia On: :39 Request Lipid Panel ([id number])Indication: Hypercholesteremia On: 65-Gnx-952967:39 Request Metabolic Panel, Basic ([id number])Indication: Hypertension On: 28-Vji-99717:14 Request Lipid Panel ([id number])Indication: Hypercholesteremia On: 28-Uof-685645:17 Request Metabolic Panel, Comprehensive ([id number])Indication: Hypercholesteremia On: 34-Ttm-653628:17 Request HEPATIC FUNCTION PANEL ([id number])Indication: Hypercholesteremia On: 64-Ucu-145731:05 Request Lipid Panel ([id number])Indication: Hypercholesteremia On: 71-Cot-935475:05 Request Creatine Kinase Total ([id number])Indication: Hypercholesteremia On: 30-Ggc-008160:28 Request Metabolic Panel, Comprehensive ([id number])Indication: Hypercholesteremia On: 01-Ztr-239952:28 Request Lipid Panel ([id number])Indication: Hypercholesteremia On: 30-Ver-213045:28 Request URIC ACID BLOOD ([id number])Indication: Gout, unspecified On: 55-Mop-047133:36 Request Creatine Kinase Total ([id number])Indication: Hypercholesteremia On: 11-Czb-181899:40 Request Lipid Panel ([id number])Indication: Hypercholesteremia On: 76-Mzg-856410:40 Request HEPATIC FUNCTION PANEL ([id number])Indication: Hypercholesteremia On: 64-Uez-502156:40 Request URINALYSIS W/O MICRO ([id number])Indication: Hypertension On: :08 Request METABOLIC PANEL, COMPREHENSIVE ([id number])Indication: Hypertension On: :08 Request CBC WITH MANUAL DIFF ([id number])Indication: Hypertension On: :08 Request Comments: in three months (approximately) LIPID PANEL ([id number])Indication: Hypertension On: :08 Request HEPATIC FUNCTION PANEL ([id number])Indication: Hypercholesteremia On: :19 Request Lipid Panel ([id number])Indication: Hypercholesteremia On: :19 Request Comments: in three months (approximately) LIPID PANEL ([id number])Indication: Hypercholesteremia On: :47 Request Comments: in three months (approximately) HEPATIC FUNCTION PANEL ([id number])Indication: Hypercholesteremia On: :47 Request Comments: 6 w and in three months (approximately) CBC WITH MANUAL DIFF ([id number])Indication: Hypercholesteremia On: :05 Request LIPID PANEL ([id number])Indication: Hypercholesteremia On: :05 Request METABOLIC PANEL, COMPREHENSIVE ([id number])Indication: Hypercholesteremia On: :05 Request HEPATIC FUNCTION PANEL ([id number])Indication: Hypercholesteremia On: 26-Pwb-340848:18 Request Lipid Panel ([id number])Indication: Hypercholesteremia On: 66-Cnc-047305:18 Request Comments: in three months HEPATIC FUNCTION PANEL ([id number])Indication: Hypercholesteremia On: 67-Wzr-723699:10 Request LIPID PANEL ([id number])Indication: Hypercholesteremia On: 35-Wfn-632240:10 Request ANTI-PHOSPHATIDYLSERINE ANTIBODY ([id number])Indication: Lupus erythematosus (Renamed from Inflammatory autoimmune disorder) On: :09 Request TYE (ANTINUCLEAR ANTIBODY) ([id number])Indication: Lupus erythematosus (Renamed from Inflammatory autoimmune disorder) On: :08 Request URINALYSIS W/O MICRO ([id number])Indication: Hypertension On: :08 Request CBC WITH MANUAL DIFF ([id number])Indication: Hypertension On: :08 Request METABOLIC PANEL, COMPREHENSIVE ([id number])Indication: Hypertension On: 87-Iqa-442805:08 Request LIPID PANEL ([id number])Indication: Hypertension On: 89-Fas-649715:08 Request Planned Encounters Medical; 4 Month FU - On: 17-Jul-2018 13:45 [facility] Radha Sebastian CNP, CNP, Mary E Planned Procedures MAMMOGRAM BREAST BILATERAL SCREENING On: 12-May-2018 Intent DIGITAL ([id number])By: Hattiethuy DARLING Radha Sebasitan CNP Radha Cao Toradol Injection, 30 mg ([id number])By: On: 20-Feb-2018 Intent Jaz DARLING Radha Sebastian CNP Radha Cao Aerosol Treatment ([id number])By: Graham, On: 22-Dec-2017 Intent Lissa Comments: exp wheeze heard throughout after aerosol treatment MAMMOGRAM BREAST BILATERAL SCREENING On: 04-Mar-2017 Intent DIGITAL ([id number])By: Jaz LISSET Radha Sebastian CNP Radha Cao Ultrasound - Abdomen CompleteBy: On: 21-Feb-2017 Intent Radha Sebastian CNP, CNP Radha Cao TDAP VACCINE >7 IM ([id number])By: Joshua On: 01-Oct-2016 Intent Philomena PADILLA Comments: lot: [id number]: 12/16/18site/route: L del/IMamt: 0.5mLVIS signed when applicableChelshenrik, CHIP Ultrasound - Abdomen (Limited Area or On: 27-Feb-2015 Intent Organs)By: Zeina Herzog MD Comments: pancreas(family h/o pancreatic ca) Ultrasound - LiverBy: Rosenda DAI, On: 27-Feb-2015 Intent Zeina Storm BILATERAL MAMMOGRAMS ([id number])By: On: 14-Feb-2015 Intent Zeina Herzog MD Radiology - Lumbar SpineBy: Rosenda On: 05-Nov-2014 Intent Zeina DAI Comments: copy to Dr. walsh Ultrasound - RenalBy: Rosenda DAI, On: 23-Jul-2014 Intent Zeina Storm CGDO-[facility] COUNSELING On: 02-Apr-2014 Intent FOR OBESITY, 15 MINUTES ([id number])By: Zeina Herzog MD MRI - BrainBy: Zeina Herzog MD On: 27-Dec-2013 Intent ADMINISTRATION OF PNEUMOCOCCAL On: 25-Sep-2013 Intent VACCINE ([id number])By: Zeina Herzog MD PNEUM VAC ADLT/IMUMNOSPR, SBC/INTRM On: 25-Sep-2013 Intent ([id number])By: Zeina Herzog MD Comments: lot: [id number]: 09/16/14site/route: L deltoid/IMamt:0.5mLVIS signed when applicableChelshenrik HAND INSERTER OPERATOR Eprescribed prescriptions ([id number])By: On: 25-Sep-2013 Intent Zeina Herzog MD [id number]-[facility] BEHAVIORAL COUNSELING On: 25-Jun-2013 Intent FOR OBESITY, 15 MINUTES ([id number])By: Zeina Herzog MD CT -left parotid glandBy: Rosenda DAI, On: 26-Mar-2013 Intent Zeina Storm Eprescribed prescriptions ([id number])By: On: 26-Mar-2013 Intent Zeina Herzog MD EKG ([id number])By: Zeina Herzog MD On: 15-Dec-2012 Intent Comments: see scanned document of test done to see results reviewed today with patient Radiology - Hip - RightBy: Rosenda On: 15-Dec-2012 Intent Zeina DAI Eprescribed prescriptions ([id number])By: On: 18-Sep-2012 Intent Lissa Miramontes LPN YOTO-[facility] BEHAVIORAL COUNSELING On: 23-May-2012 Intent FOR OBESITY, 15 MINUTES ([id number])By: Zeina Herzog MD SPECIMEN HANDLING/TRANSPORT On: 07-Mar-2012 Intent ([id number])By: Sanjuanita Gray LPN EKG ([id number])By: Zeina Herzog MD On: 18-Feb-2012 Intent Comments: see scanned document of test done to see results reviewed today with patient Echo CompleteBy: Zeina Herzog MD On: 18-Feb-2012 Intent Radiology - Lumbar SpineBy: Rosenda On: 18-Feb-2012 Intent Zeina DAI Toradol Injection, 30 mg ([id number])By: On: 14-Feb-2012 Intent Ciesa EDITORIAL INTERN, Radha Sebastian EDITORIAL INTERN, Radha HERBERT - Knee(s) - LeftBy: Jaz DARLING, On: 05-Oct-2011 Intent Citlaly Ciesa EDITORIAL INTERN, Citlaly EKG ([id number])By: Zeina Herzog MD On: 13-Jul-2010 Intent Ultrasound - RenalBy: Rosenda DAI, On: 12-Feb-2010 Intent Zeina Storm EMGBy: Zeina Herzog MD On: 12-Feb-2010 Intent Nerve ConductionBy: Zeina Herzog MD On: 12-Feb-2010 Intent M Radiology - Hip - RightBy: Rosenda On: 12-Feb-2010 Intent Zeina DAI Aerosol Treatment ([id number])By: Jaz On: 25-Sep-2009 Intent EDITORIAL INTERN, Citlaly Cicorry DARLING, Citlaly Pulse Oximetry ([id number])By: Cj On: 20-Nov-2007 Intent DAVID EKG ([id number])By: DAVID Corona On: 20-Nov-2007 Intent Radiology - ChestBy: Zeina Herzog MD On: 23-Dec-2006 Intent Emeterio MAMMOGRAM, SCREENING, BOTH BREASTS On: 20-Sep-2006 Intent ([id number])By: Zeina Herzog MD EKG ([id number])By: Zeina Herzog MD On: 16-Aug-2006 Intent Planned Medications INJECTION, KETOROLAC TROMETHAMINE, PER 15 MG Ordered: 14-Feb-2012 Pending Ciesa LISSET, Citlaly Ciesa EDITORIAL INTERN, Citlaly INJECTION, KETOROLAC TROMETHAMINE, PER 15 MG Ordered: 20-Feb-2018 Pending Ciesa EDITORIAL INTERN, Citlaly Ciesa EDITORIAL INTERN, Citlaly Instructions Name Dates Details Nonsmoker : How to access health information online Indication: Nonsmoker Nonsmoker : How to access health information online - Detail Indication: Nonsmoker Nonsmoker : Patient Instructions Indication: Nonsmoker Nonsmoker : How to access health information online Indication: Nonsmoker Nonsmoker : How to access health information online - Detail Indication: Nonsmoker Nonsmoker : Patient Instructions Indication: Nonsmoker BMI 50.0-59.9, adult : How to access health information online Indication: BMI 50.0-59.9, adult BMI 50.0-59.9, adult : How to access health information online - Detail Indication: BMI 50.0-59.9, adult Lupus (systemic lupus erythematosus) : Patient Instructions Indication: Lupus (systemic lupus erythematosus) Arthritis : How to access health information online Indication: Arthritis Arthritis : How to access health information online - Detail Indication: Arthritis Nonsmoker : How to access health information online Indication: Nonsmoker Nonsmoker : How to access health information online - Detail Indication: Nonsmoker Cough : Patient Instructions Indication: Cough Diabetes mellitus type II, controlled, with no complications : How to access health information online Indication: Diabetes mellitus type II, controlled, with no complications Diabetes mellitus type II, controlled, with no complications : How to access health information online - Detail Indication: Diabetes mellitus type II, controlled, with no complications Diabetes mellitus type II, controlled, with no complications : Patient Instructions Indication: Diabetes mellitus type II, controlled, with no complications Hypertension : DISCONTINUED - MICROALBUMIN: CREATININE RATIO ([id number]) AND ([id number]) Indication: Hypertension Diabetes mellitus type II, controlled, with no complications : How to access health information online Indication: Diabetes mellitus type II, controlled, with no complications Diabetes mellitus type II, controlled, with no complications : How to access health information online - Detail Indication: Diabetes mellitus type II, controlled, with no complications Diabetes mellitus type II, controlled, with no complications : Patient Instructions Indication: Diabetes mellitus type II, controlled, with no complications Diabetes mellitus type II, controlled, with no complications : How to access health information online Indication: Diabetes mellitus type II, controlled, with no complications Diabetes mellitus type II, controlled, with no complications : How to access health information online - Detail Indication: Diabetes mellitus type II, controlled, with no complications Hypercholesteremia : Patient Instructions Indication: Hypercholesteremia Diabetes mellitus type II, controlled, with no complications : How to access health information online Indication: Diabetes mellitus type II, controlled, with no complications Diabetes mellitus type II, controlled, with no complications : How to access health information online - Detail Indication: Diabetes mellitus type II, controlled, with no complications Diabetes mellitus type II, controlled, with no complications : Patient Instructions Indication: Diabetes mellitus type II, controlled, with no complications Cellulitis of forearm : How to access health information online Indication: Cellulitis of forearm Cellulitis of forearm : How to access health information online - Detail Indication: Cellulitis of forearm Cellulitis of forearm : Patient Instructions Indication: Cellulitis of forearm Diabetes mellitus type II, controlled, with no complications : How to access health information online Indication: Diabetes mellitus type II, controlled, with no complications Diabetes mellitus type II, controlled, with no complications : How to access health information online - Detail Indication: Diabetes mellitus type II, controlled, with no complications Diabetes mellitus type II, controlled, with no complications : Patient Instructions Indication: Diabetes mellitus type II, controlled, with no complications Gout : Patient Instructions Indication: Gout Diabetes mellitus type II, controlled, with no complications : Patient Instructions Indication: Diabetes mellitus type II, controlled, with no complications Hypertension : How to access health information online Indication: Hypertension Hypertension : How to access health information online - Detail Indication: Hypertension Hypertension : Patient Instructions Indication: Hypertension Diabetes mellitus type II, controlled, with no complications : How to access health information online Indication: Diabetes mellitus type II, controlled, with no complications Diabetes mellitus type II, controlled, with no complications : How to access health information online - Detail Indication: Diabetes mellitus type II, controlled, with no complications Diabetes mellitus type II, controlled, with no complications : Patient Instructions Indication: Diabetes mellitus type II, controlled, with no complications Vitamin D deficiency : How to access health information online Indication: Vitamin D deficiency Vitamin D deficiency : How to access health information online - Detail Indication: Vitamin D deficiency Vitamin D deficiency : Patient Instructions Indication: Vitamin D deficiency Other intervertebral disc degeneration, lumbar region : How to access health information online Indication: Other intervertebral disc degeneration, lumbar region Other intervertebral disc degeneration, lumbar region : How to access health information online - Detail Indication: Other intervertebral disc degeneration, lumbar region Other intervertebral disc degeneration, lumbar region : Patient Instructions Indication: Other intervertebral disc degeneration, lumbar region Diabetes mellitus type II, controlled, with no complications : How to access health information online Indication: Diabetes mellitus type II, controlled, with no complications Diabetes mellitus type II, controlled, with no complications : How to access health information online - Detail Indication: Diabetes mellitus type II, controlled, with no complications Diabetes mellitus type II, controlled, with no complications : Patient Instructions Indication: Diabetes mellitus type II, controlled, with no complications Diabetes mellitus type II, controlled, with no complications : How to access health information online Indication: Diabetes mellitus type II, controlled, with no complications Diabetes mellitus type II, controlled, with no complications : How to access health information online - Detail Indication: Diabetes mellitus type II, controlled, with no complications Diabetes mellitus type II, controlled, with no complications : Patient Instructions Indication: Diabetes mellitus type II, controlled, with no complications Diabetes mellitus type II, controlled, with no complications : How to access health information online Indication: Diabetes mellitus type II, controlled, with no complications Diabetes mellitus type II, controlled, with no complications : How to access health information online - Detail Indication: Diabetes mellitus type II, controlled, with no complications Diabetes mellitus type II, controlled, with no complications : Patient Instructions Indication: Diabetes mellitus type II, controlled, with no complications Morbid obesity : Patient Instructions Indication: Morbid obesity BMI 60.0-69.9, adult : obesity counseling Indication: BMI 60.0-69.9, adult Impaired fasting glucose : Patient Instructions Indication: Impaired fasting glucose BMI 60.0-69.9, adult : obesity counseling Indication: BMI 60.0-69.9, adult Hypercholesteremia : Patient Instructions Indication: Hypercholesteremia Impaired fasting glucose : Patient Instructions Indication: Impaired fasting glucose Acute sinusitis, unspecified : Patient Instructions Indication: Acute sinusitis, unspecified Hypercholesteremia : Patient Instructions Indication: Hypercholesteremia BMI 50.0-59.9, adult : obesity counseling Indication: BMI 50.0-59.9, adult Hypercholesteremia : Patient Instructions Indication: Hypercholesteremia Gout, unspecified : Gout: foot Indication: Gout, unspecified Encounters Lab Order On: 12-May-2018 14:57 Encounter Diagnosis: Screening mammogram, encounter for End: 12-May-2018 15:00 [facility] Office Visit On: 26-Apr-2018 15:01 Encounter Reason: Follow up acute care visit - The patient feeling better since last seen. Note for Follow up acute care visit: Back aching and still feels llike have to urinate even if she does not.Encounter Diagnosis: BMI 50.0-59.9, adult, End: 26-Apr-2018 15:17 Nonsmoker, Urinary urgency [facility] Office Visit On: 14-Apr-2018 11:12 Encounter Reason: UTI - The symptoms have been occurring for 1 month (apx)., [ADDITIONAL REASON] auditory hallucinations - Feels hearing voices like repeating over and over Encounter Diagnosis: Urinary frequency, Nonsmoker, BMI 50.0-59.9, adult, End: 14-Apr-2018 12:21 Pain, chronic, Imbalance, Hallucinations [facility] Office Visit On: 13-Mar-2018 11:13 Encounter Reason: Follow up for chronic medical issues - The patient feels well with minor complaints, has decreased energy level and is sleeping well. Patient has been compliant with instructions. Current medication use End: 13-Mar-2018 14:25 : no side effects and compliant with dosing regimen. Patient sleeps 6 hours per night. Nutrition: balanced diet. The medical issues the patient is following up for include All identified problems below, blood sugar issues, high blood pressure and high cholesterol., [ADDITIONAL REASON] Disability - Worsening physical ability to walk and steps. Worsening urinary incontinence now, thinks worsening since gabapentin and med for Hpylori. , [ADDITIONAL REASON] Urinary Urgency - Note for Urinary urgency: Has worsening urinary incontenence especially at night , uses pads Encounter Diagnosis: Nonsmoker, BMI 50.0-59.9, adult, Diabetes mellitus type II, controlled, with no complications, Pain, chronic, Debility, Morbid obesity, Lupus (systemic lupus erythematosus), Urinary incontinence in female [facility] Office Visit On: 20-Feb-2018 13:20 Encounter Reason: Arthritis / Joint Pain - This condition is not related to a specific injury. Symptoms include joint pain and decreased joint range of motion. The pain is located in the neck, back, left shoulder, left e End: 20-Feb-2018 14:07 lbow, left wrist, left hand, left finger(s), left hip, left sacroiliac region, left knee, left ankle, right shoulder, right elbow, right wrist, right hand, right finger(s), right hip, right sacroiliac r egion, right knee and right ankle. Note for Arthritis / joint pain: In so much pain cannot move. Because taken off all tylenol, ibuprofen.Encounter Diagnosis: BMI 50.0-59.9, adult, Nonsmoker, Pain, chronic, Arthritis, Anemia, iron deficiency, Disability of walking [facility] Office Visit On: 22-Dec-2017 13:19 Encounter Reason: Cough - The onset of the cough has been sudden (4 days for cough but not felt quite right for last week or sothought allergies so took allergy med but didnt do anything to help Wen sometimes get bronch End: 22-Dec-2017 14:16 itis). Note for Cough : Symptoms started about 1-1.5 weeks ago-symptoms got worse about 4 days ago-deep cough-more in the mornings or when laughing, coughing up yellow once in a while-mostly clear, hu rts back and chest, a little SOB, wheezing, slight nasal drainage, headaches from coughing, chills. No fever, Has been taking an allergy pill to see if that would help. Does get bronchitis off an on.Encounter Diagnosis: BMI 50.0-59.9, adult, Nonsmoker, Cough, SOB (shortness of breath), Chest tightness, Bronchitis [facility] Office Visit On: 08-Nov-2017 13:51 Encounter Reason: Follow up for chronic medical issues - The patient feels well with minor complaints, has good energy level and is sleeping well. Patient has been compliant with instructions. Current medication use: no End: 08-Nov-2017 15:16 side effects and compliant with dosing regimen. Patient sleeps 6 (broken) hours per night. Nutrition: balanced diet and no supplemental vitamins & iron. The medical issues the patient is following u p for include All identified problems below, blood sugar issues, high blood pressure and high cholesterol. fasting blood sugars :., [ADDITIONAL REASON] Sinus pain - The pain has been occurring for 1 month. The symptoms have been ass ociated with nasal discharge/stuffy nose and sinusitis in the past. Note for Pain: Runny nose and coughing x 1 month Encounter Diagnosis: Diabetes mellitus type II, controlled, with no complications, Hypertension, Gout, Nonsmoker, BMI 50.0-59.9, adult, Anemia, Sinusitis [facility] Annotation/Addendum On: 20-Sep-2017 13:09 Encounter Diagnosis: Splenomegaly End: 21-Sep-2017 6:55 [facility] Phone Encounter On: 04-Jul-2017 14:44 Encounter Diagnosis: Personal history of breast cancer End: 04-Jul-2017 14:49 [facility] Office Visit On: 27-Jun-2017 13:20 Encounter Reason: Follow up for chronic medical issues - The patient feels well with minor complaints (hypotension, sinus ??pressure), has good energy level and is sleeping well. Patient has been compliant with instructi End: 27-Jun-2017 14:34 ons. Current medication use: no side effects and compliant with dosing regimen. Patient sleeps 6 (broken) hours per night. Nutrition: balanced diet and no supplemental vitamins & iron. The medical i ssues the patient is following up for include All identified problems below, blood sugar issues, high blood pressure and high cholesterol. fasting blood sugars :. Note for Follow up for chronic medical issues: was sick about a week ago with vomiting and diarrhea that resolvedWith both water pills at same time and lisinopril BP drops, [ADDITIONAL REASON] Follow up tests - Diagnostic tests include other (labs). , [ADDITIONAL REASON] Sinusitis - The symptoms occur constantly. The patient describes this as worsening. Previous presentation included nasal congestion and forehead pressure. Encounter Diagnosis: Diabetes mellitus type II, controlled, with no complications, Nonsmoker, BMI 45.0- 49.9, adult, Gout, Pain, chronic, Hypertension, Sinusitis, Hypercholesteremia [facility] Phone Encounter On: 04-Mar-2017 11:01 Encounter Diagnosis: Breast screening End: 04-Mar-2017 11:04 [facility] Office Visit On: 21-Feb-2017 12:41 Encounter Reason: Follow up tests - Diagnostic tests include other (labs)., [ADDITIONAL REASON] Follow up for chronic medical issues - The patient feels well with minor complai End: 21-Feb-2017 14:00 nts, has good energy level and is sleeping well. Patient has been compliant with instructions. Current medication use: no side effects and compliant with dosing regimen. Patient sleeps 6 (broken) hours per night. Nutrition: balanced diet and no supplemental vitamins & iron. The medical issues the patient is following up for include All identified problems below, blood sugar issues, high blood pres sure and high cholesterol. fasting blood sugars :. Note for Follow up for chronic medical issues: was sick about a week ago with vomiting and diarrhea that resolved Encounter Diagnosis: Diabetes mellitus type II, controlled, with no complications, BMI 50.0-59.9, adult, Nonsmoker, Low back pain (724.2), Abdominal pain, RLQ, Hypercholesteremia [facility] Lab Order On: 07-Feb-2017 11:45 Encounter Diagnosis: Hypercholesteremia, Elevated alkaline phosphatase level End: 07-Feb-2017 11:47 [facility] Office Visit On: 19-Nov-2016 10:39 Encounter Reason: Follow up for chronic medical issues - The patient feels well with no complaints, has good energy level and is sleeping well. Patient has been compliant with instructions. Current medication use: no yuridia End: 19-Nov-2016 11:55 e effects and compliant with dosing regimen. Patient sleeps 7 hours per night. Nutrition: balanced diet and no supplemental vitamins & iron. The medical issues the patient is following up for includ e All identified problems below, blood sugar issues, high blood pressure and high cholesterol. Note for Follow up for chronic medical issues: was sick about a week ago with vomiting and diarrhea that resolved, [ADDITIONAL REASON] Follow up tests - Diagnostic tests include other (labs). Encounter Diagnosis: Current nonsmoker (Renamed from Current non-smoker), Diabetes mellitus type II, controlled, with no complications, GERD (gastroesophageal reflux disease), Hypercholesteremia, Hypertension, Anxiety, Gout, unspecified, BMI 50.0-59.9, adult [facility] Phone Encounter On: 19-Nov-2016 9:09 [facility] End: 19-Nov-2016 9:12 Office Visit On: 01-Oct-2016 10:33 Encounter Reason: Cat bite - my cat biter me 10 days ago and its getting red up the arm. He is a indoor oleksandr only and he is up to date on his shotsEncounter Diagnosis: BMI 50.0-59.9, adult, Current nonsmoker (Renamed from Current non-smoker), End: 01-Oct-2016 15:14 Cat bite, initial encounter, Cellulitis of forearm, Need for Tdap vaccination (Renamed from Need for [id number] (Tdap) vaccine, adult/adolescent) [facility] Office Visit On: 09-Aug-2016 14:00 Encounter Reason: Follow up for chronic medical issues - The patient feels well with minor complaints, has good energy level and is sleeping well. Patient has been compliant with instructions. Current medication use: no End: 09-Aug-2016 14:40 side effects and compliant with dosing regimen. Patient sleeps 7 hours per night. Nutrition: balanced diet and no supplemental vitamins & iron. The medical issues the patient is following up for inc lude All identified problems below, blood sugar issues, high blood pressure and high cholesterol. weight :. Note for Follow up for chronic medical issues: was sick about a week ago with vomiting and diarrhea that resolvedEncounter Diagnosis: Diabetes mellitus type II, controlled, with no complications, BMI 50.0-59.9, adult, Current nonsmoker (Renamed from Current non-smoker), Hypertension, Gout, Knee pain (719.46) [facility] Office Visit On: 31-May-2016 12:58 Encounter Reason: Follow up tests - Date: (05/26/16 labs).Encounter Diagnosis: Gout, Hypertension, BMI 50.0-59.9, adult, Nutritional counseling End: 31-May-2016 13:49 [facility] Office Visit On: 30-Apr-2016 12:40 Encounter Reason: Follow up for chronic medical issues - The patient feels well with minor complaints (reoccurring gout), has good energy level and is sleeping well (on and off). Patient has been compliant with instructi End: 30-Apr-2016 14:45 ons. Current medication use: experiencing side effects. Patient sleeps 6 hours per night. Impact of disease: emotional impact-moderate. Nutrition: balanced diet and supplemental vitamins (probiotic). Th e medical issues the patient is following up for include blood sugar issues, cardiac issues, depression, gastric reflux, high blood pressure, high cholesterol and other (hx. of breast cancer, morbid obe sity , gout, TINO, lupus, vitamin d def., urin incont., DDD )., [ADDITIONAL REASON] Gout - Symptoms include pain. The pain radiates to the left ankle. The patient describes the pain as aching. Encounter Diagnosis: Diabetes mellitus type II, controlled, with no complications, Hypercholesteremia, Gout, BMI 50.0-59.9, adult [facility] Office Visit On: 28-Jan-2016 10:35 Encounter Reason: Follow up for chronic medical issues - The patient feels well with minor complaints, has decreased energy level (in between) and is sleeping well (on and off). Patient has been compliant with instructio End: 28-Jan-2016 11:37 ns. Current medication use: experiencing side effects (gabapentin causes some low energy). Patient sleeps 6 hours per night. Impact of disease: emotional impact- moderate. Nutrition: balanced diet and graves pplemental vitamins. The medical issues the patient is following up for include blood sugar issues, cardiac issues, depression, gastric reflux, high blood pressure, high cholesterol and other (hx. of br [place] cancer, morbid obesity , gout, TINO, lupus, vitamin d def., urin incont., DDD ).Encounter Diagnosis: Diabetes mellitus type II, controlled, with no complications, Vitamin D deficiency, Anxiety, GERD (gastroesophageal reflux disease), Hypertension , Hypercholesteremia, Renal cyst, Other intervertebral disc degeneration, lumbar region [facility] Office Visit On: 27-Oct-2015 13:52 Encounter Reason: Follow up for chronic medical issues - The patient feels well with minor complaints and has decreased energy level. Patient has been compliant with instructions. Current medication use: experiencing yuridia End: 27-Oct-2015 14:26 e effects (atorvastatin cause kidney pain ). Patient sleeps 7 hours per night. Impact of disease: emotional impact-moderate. Nutrition: balanced diet and supplemental vitamins. The medical issues the patient is following up for include blood sugar issues, cardiac issues, depression, gastric reflux, high blood pressure, high cholesterol and other (hx. of breast cancer, morbid obesity , gout, TINO, lupus, vitamin d def., urin incont., DDD ). Encounter Diagnosis: Diabetes mellitus type II, controlled, with no complications, Current nonsmoker (Renamed from Current non-smoker), Other intervertebral disc degeneration, lumbar region, Well woman exam, Urinary incontinence in female, Gout, unspecified, Personal history of breast cancer, Elevated alkaline phosphatase level, Hypercholesteremia, Hypertension, Arthritis, GERD (gastroesophageal reflux disease), Nonrheumatic tricuspid valve disorder, Anxiety, Vitamin D deficiency, Morbid obesity, Obstructive sleep apnea, adult, Sinusitis, chronic, Allergic rhinitis, History of colon polyps, Lupus (systemic lupus erythematosus) [facility] Historical Summary On: 23-Oct-2015 12:19 [facility] End: 23-Oct-2015 12:20 Office Visit On: 15-Jul-2015 13:43 Encounter Reason: Follow up tests - Date: (05/08/15 blood work)., [ADDITIONAL REASON] Follow up for chronic medical issues - The patient feels well with minor complai End: 15-Jul-2015 15:01 nts and has decreased energy level. Patient has been compliant with instructions. Current medication use: no side effects, compliant with dosing regimen and considered effective by patient. Patient slee ps 7 hours per night. Impact of disease: emotional impact-moderate. Nutrition: balanced diet and supplemental vitamins. The medical issues the patient is following up for include blood sugar issues, car diac issues, depression (anxiety ), gastric reflux, high blood pressure, high cholesterol and other (obesity, hx. of breast cancer, gout, vitamin d def., arthritis, systemic lupus, DDD ??). Encounter Diagnosis: Diabetes mellitus type II, controlled, with no complications, Hypertension, Hypercholesteremia, Vitamin D deficiency (268.9), GERD (gastroesophageal reflux disease), Allergic rhinitis (477.9), Arthritis, Abnormal laboratory test, Anxiety (300.00), Elevated alkaline phosphatase level, Constipation (564.00), DISORDER, NONRHEUMATIC TRICUSPID VALVE (424.2), Urinary incontinence in female, Well woman exam, BMI 60.0-69.9, adult, Personal history of breast cancer, Gout, unspecified, Other intervertebral disc degeneration, lumbar region, Sinusitis, chronic, Obesity (278.00), Obstructive sleep apnea, adult, Systemic lupus erythematosus (710.0), History of colon polyps [facility] Office Visit On: 12-May-2015 13:35 Encounter Reason: Follow up for chronic medical issues - The patient feels well with minor complaints and has decreased energy level. Patient has been compliant with instructions. Current medication use: no side effects, End: 12-May-2015 14:12 compliant with dosing regimen and considered effective by patient. Patient sleeps 7 hours per night. Impact of disease: emotional impact-moderate. Nutrition: balanced diet and supplemental vitamins. Th e medical issues the patient is following up for include blood sugar issues, cardiac issues, depression (anxiety ), gastric reflux, high blood pressure, high cholesterol and other (obesity, hx. of breas t cancer, gout, vitamin d def., arthritis, systemic lupus, DDD ).Encounter Diagnosis: Diabetes type II,controlled no comp (250.00), Degenerative Disc Disease - Lumbar (722.52), Constipation (564.00), Elevated alkaline phosphatase level, Urinary incontinence in female, DISORDER, NONRHEUMATIC TRICUSPID VALVE (424.2), Gout, unspecified (274.9), Well Women Exam, No Pap (V72.31) (Mammo), Hypertension 401.1 (Renamed from Hypertension (401.0)), Impaired fasting glucose (790.21), Anxiety (300.00), HX, PERSONAL, MALIGNANCY, BREAST (V10.3), Allergic rhinitis (477.9), GERD (gastroesophageal reflux disease), Abnormal laboratory test, Hypercholesteremia, Arthritis, Sinusitis, chronic, Obstructive sleep apnea (327.23), Hypercalcemia, Vitamin D deficiency (268.9), BMI 60.0-69.9, ADULT (V85.44), Obesity (278.00), Systemic lupus erythematosus (710.0) [facility] Phone Encounter On: 27-Feb-2015 10:08 Encounter Diagnosis: Abnormal blood findings End: 27-Feb-2015 10:13 [facility] Phone Encounter On: 17-Feb-2015 17:47 Encounter Diagnosis: Abnormal laboratory test End: 17-Feb-2015 18:00 [facility] Phone Encounter On: 14-Feb-2015 11:38 Encounter Diagnosis: Breast screening End: 14-Feb-2015 11:41 [facility] Phone Encounter On: 11-Feb-2015 15:21 [facility] End: 11-Feb-2015 15:22 Office Visit On: 11-Feb-2015 14:10 Encounter Reason: Annual Medicare Exam - The patient had reviewed and updated the family history, medication/s, past medical history and social history. Yes the patient did have ( alert) a mini mental status exam do End: 11-Feb-2015 15:14 ne today. The activities of daily living the patient needs help with are none. The patient has not had fecal incontinence, had urinary incontinence, missed or ran out of medications to soon, driven in p ast 6 months, fallen in the past 6 months, gotten lost, has a medalert necklace or bracelet, put area rugs through house or put handrails in bathroom. The patient has completed the following preventativ e measures: PAP smear (unsure of timing, had hysterectomy), mammography (2012) and colonoscopy ([facility] - 3/4 yrs ago). The patient does not have durable power of bog worker or living will. The patient has noticed staying at home rather than doing something new or going out. Other providers contributing to the patient's care are other: (alex regularly and Dr. hernandez for knee painzackary - painperkins - eye exam)., [ADDITIONAL REASON] Follow up for chronic medical issues - The patient feels well with minor complaints (R hip pain that radiates down into R thigh), has decreased energy level and is sleeping poorly. Patient has been compliant with instructions. Current medication use: no side effects, compliant with dosing regimen and considered effective by patient. Patient sleeps 7 hours per night. Impact of dise ase: emotional impact-mild. Nutrition: balanced diet and supplemental vitamins. The medical issues the patient is following up for include blood sugar issues, cardiac issues, depression, high blood pres sure, high cholesterol, osteoarthritis and other (lupus, vitamin d def., DDD, hx. breast cancer, gout, allergic rhinitis, TINO, cataract, obesity ). Encounter Diagnosis: Systemic lupus erythematosus (710.0), Hypertension 401.1 (Renamed from Hypertension (401.0)), Sinusitis,chronic (473.9), arthritis,unspecified (716.90), Anxiety (300.00), Allergic rhinitis (477.9), HX, PERSONAL, MALIGNANCY, BREAST (V10.3), Well Women Exam, No Pap (V72.31) (Mammo), Elevated alkaline phosphatase level, Diabetes type II,controlled no comp (250.00), Gerd (530.81), Sciatica of right side, Cataract (366.9), Knee pain (719.46), Constipation (564.00), Obstructive sleep apnea (327.23), Urinary incontinence in female, Gout, unspecified (274.9), Degenerative Disc Disease - Lumbar (722.52), DISORDER, NONRHEUMATIC TRICUSPID VALVE (424.2), Vitamin D deficiency (268.9), Hypercalcemia, Hypercholesteremia (272.0), Obesity (278.00), BMI 60.0-69.9, ADULT (V85.44), Annual Medicare Physical (V70.0) [facility] Office Visit On: 05-Nov-2014 13:47 Encounter Reason: Follow up for chronic medical issues - The patient feels well with minor complaints (R hip pain that radiates down into R thigh), has decreased energy level and is sleeping poorly. Patient has been comp End: 05-Nov-2014 14:40 liant with instructions. Current medication use: no side effects, compliant with dosing regimen and considered effective by patient. Patient sleeps 7 hours per night. Impact of disease: emotional impact -mild. Nutrition: balanced diet and supplemental vitamins. The medical issues the patient is following up for include blood sugar issues, cardiac issues, depression, high blood pressure, high cholestero l, osteoarthritis and other (lupus, vitamin d def., DDD, hx. breast cancer, gout, allergic rhinitis, TINO, cataract, obesity ).Encounter Diagnosis: Diabetes type II,controlled no comp (250.00), Elevated alkaline phosphatase level, Gerd (530.81), Cataract (366.9), Sciatica of right side, Well Women Exam, No Pap (V72.31) (Mammo), arthritis,unspecified (716.90), Sinusitis,chronic (473.9), Anxiety (300.00), HX, PERSONAL, MALIGNANCY, BREAST (V10.3), Constipation (564.00), Allergic rhinitis (477.9), Hair loss, Knee pain (719.46), Urinary incontinence in female, Hypercalcemia, Degenerative Disc Disease - Lumbar (722.52), Hypertension 401.1 (Renamed from Hypertension (401.0)), Vitamin D deficiency (268.9), Hypercholesteremia (272.0), Impaired fasting glucose (790.21), BMI 60.0-69.9, ADULT (V85.44), Obesity (278.00), DISORDER, NONRHEUMATIC TRICUSPID VALVE (424.2), Gout, unspecified (274.9), Obstructive sleep apnea (327.23), Systemic lupus erythematosus (710.0) [facility] Lab Order On: 31-Oct-2014 13:07 Encounter Diagnosis: Diabetes type II,controlled no comp (250.00), Hypercholesteremia (272.0), Vitamin D deficiency (268.9), Hypertension 401.1 (Renamed from Hypertension (401.0)) End: 31-Oct-2014 13:10 [facility] Office Visit On: 23-Jul-2014 15:10 Encounter Reason: Follow up tests - Date: (07/19/14 blood work)., [ADDITIONAL REASON] Follow up for chronic medical issues - The patient feels well with minor complai End: 23-Jul-2014 16:18 nts (R hip pain that radiates down into R thigh), has decreased energy level and is sleeping poorly. Patient has been compliant with instructions. Current medication use: no side effects, compliant with dosing regimen and considered effective by patient. Patient sleeps 7 hours per night. Impact of disease: emotional impact-mild. Nutrition: balanced diet and supplemental vitamins. The medical issues th e patient is following up for include blood sugar issues, cardiac issues, depression, high blood pressure, high cholesterol, osteoarthritis and other (lupus, vitamin d def., DDD, hx. breast cancer, gout, allergic rhinitis, TINO, cataract, obesity ). Encounter Diagnosis: Diabetes type II,controlled no comp (250.00), Constipation (564.00), Vitamin D deficiency (268.9), Hypercalcemia, Degenerative Disc Disease - Lumbar (722.52), HX, PERSONAL, MALIGNANCY, BREAST (V10.3), Hypercholesteremia (272.0), Anxiety (300.00), Knee pain (719.46), Hair loss, Allergic rhinitis (477.9), Sinusitis,chronic (473.9), Cataract (366.9), Gerd (530.81), Elevated alkaline phosphatase level, arthritis,unspecified (716.90), Well Women Exam, No Pap (V72.31) (Mammo), Sciatica of right side, Obesity (278.00), BMI 60.0-69.9, ADULT (V85.44), Low back pain (724.2), Hypertension 401.1 (Renamed from Hypertension (401.0)), Impaired fasting glucose (790.21), DISORDER, NONRHEUMATIC TRICUSPID VALVE (424.2), Obstructive sleep apnea (327.23), Gout, unspecified (274.9), Systemic lupus erythematosus (710.0), Cyst, kidney, acquired (593.2), Urinary incontinence in female [facility] Office Visit On: 10-May-2014 13:19 Encounter Reason: Follow up acute care visit - The patient feels the same. Patient has been compliant with instructions. Current medication use: no side effects, compliant with dosing regimen and not considered effective End: 10-May-2014 14:36 by patient. The medical issues the patient is following up for include All identified problems below and other (weight loss and BS ).Encounter Diagnosis: Diabetes type II,controlled no comp (250.00), BMI 60.0-69.9, ADULT (V85.44), Obesity (278.00), Sciatica of right side [facility] Office Visit On: 02-Apr-2014 11:23 Encounter Reason: Follow up for chronic medical issues - The patient feels well with minor complaints and has decreased energy level. Patient has been compliant with instructions. Current medication use: no side effects, End: 02-Apr-2014 12:05 compliant with dosing regimen and considered effective by patient. Patient sleeps 7 hours per night. Impact of disease: emotional impact-mild. Nutrition: balanced diet and supplemental vitamins. The me dical issues the patient is following up for include blood sugar issues, cardiac issues, depression, high blood pressure, high cholesterol, osteoarthritis and other (lupus, vitamin d def., DDD, hx. juan st cancer, gout, allergic rhinitis, TINO, cataract, obesity ).Encounter Diagnosis: HX, PERSONAL, MALIGNANCY, BREAST (V10.3), Degenerative Disc Disease - Lumbar (722.52), Low back pain (724.2), DISORDER, NONRHEUMATIC TRICUSPID VALVE (424.2), Well Women Exam, No Pap (V72.31) (Mammo), arthritis,unspecified (716.90), Anxiety (300.00), Hypertension 401.1 (Renamed from Hypertension (401.0)), Gout, unspecified (274.9), Obstructive sleep apnea (327.23), Gerd (530.81), Cataract (366.9), Sinusitis,chronic (473.9), Allergic rhinitis (477.9), Persistent headaches, BMI 60.0-69.9, ADULT (V85.44), Hypercholesteremia (272.0), Hair loss, Knee pain (719.46), Obesity (278.00), Vitamin D deficiency (268.9), Constipation (564.00), Systemic lupus erythematosus (710.0), Diabetes type II,controlled no comp (250.00), Hypercalcemia, Elevated alkaline phosphatase level [facility] Office Visit On: 27-Dec-2013 11:28 Encounter Reason: Follow up for chronic medical issues - The patient feels well with minor complaints and has decreased energy level. Patient has been compliant with instructions. Current medication use: no side effects, End: 27-Dec-2013 12:17 compliant with dosing regimen and considered effective by patient. Patient sleeps 6 hours per night. Impact of disease: emotional impact-mild. Nutrition: balanced diet and supplemental vitamins. The sc dical issues the patient is following up for include cardiac issues, depression, gastric reflux, high blood pressure, high cholesterol, osteoarthritis and other (hx breast cancer, TINO, obesity, gout, lupus, DDD, vitamin D def. ).Encounter Diagnosis: Impaired fasting glucose (790.21), Hypertension 401.1 (Renamed from Hypertension (401.0)), Anxiety (300.00), Gout, unspecified (274.9), Gerd (530.81), Obstructive sleep apnea (327.23), arthritis,unspecified (716.90), Degenerative Disc Disease - Lumbar (722.52), HX, PERSONAL, MALIGNANCY, BREAST (V10.3), Low back pain (724.2), Well Women Exam, No Pap (V72.31) (Mammo), DISORDER, NONRHEUMATIC TRICUSPID VALVE (424.2), Cataract (366.9), Obesity (278.00), Hypercholesteremia (272.0), Knee pain (719.46), Hair loss, BMI 60.0-69.9, ADULT (V85.44), Constipation (564.00), Vitamin D deficiency (268.9), Allergic rhinitis (477.9), Sinusitis,chronic (473.9), Systemic lupus erythematosus (710.0), Limb pain (729.5), Vertigo, Persistent headaches [facility] Office Visit On: 25-Sep-2013 11:07 Encounter Reason: Follow up for chronic medical issues - The patient feels well with minor complaints and has decreased energy level. Patient has been compliant with instructions. Current medication use: no side effects, End: 26-Sep-2013 7:55 compliant with dosing regimen and considered effective by patient. Patient sleeps 7 hours per night. Impact of disease: emotional impact-mild. Nutrition: balanced diet and supplemental vitamins. The sc dical issues the patient is following up for include asthma, cardiac issues, depression, gastric reflux, high blood pressure, high cholesterol and other (lupus, obesity, hx. breast cancer, gout, TINO, vitamin d def., allergic rhinitis )., [ADDITIONAL REASON] Annual Medicare Exam - The patient had reviewed and updated the family history, medication/s, past medical history and social history. Yes the patient did have ( alert) a mini mental status exam done today. The activities of daily living the patient needs help with are none. The patient has not had fecal incontinence, had urinary incontinence, missed or ran out of medications to soon, driven in past 6 months, fallen in the past 6 months, gotten lost, has a medalert necklace or bracelet, put area rugs through house or put handrails in bathroom. The patient has completed the following preventative measures: PAP smear (unsure of timing, had hysterectomy), mammography (2012) and colonoscopy (5 yrs ago). The patient does not have durable power of bog worker or living will. The p atient has noticed feeling helpless and staying at home rather than doing something new or going out. Other providers contributing to the patient's care are other: (alex regularly and Dr. hernandez for knee pain). Encounter Diagnosis: Impaired fasting glucose (790.21), HX, PERSONAL, MALIGNANCY, BREAST (V10.3), Degenerative Disc Disease - Lumbar (722.52), Low back pain (724.2), DISORDER, NONRHEUMATIC TRICUSPID VALVE (424.2), Well Women Exam, No Pap (V72.31) (Mammo), arthritis,unspecified (716.90), Anxiety (300.00), Hypertension 401.1 (Renamed from Hypertension (401.0)), Gout, unspecified (274.9), Obstructive sleep apnea (327.23), Gerd (530.81), Hip pain (719.45), Constipation (564.00), Hypercholesteremia (272.0) , Knee pain (719.46), BMI 60.0-69.9, ADULT (V85.44), Vitamin D deficiency (268.9), Sinusitis,chronic (473.9), Allergic rhinitis (477.9), Obesity (278.00), Cataract (366.9), Systemic lupus erythematosus (710.0), Hair loss, Annual Medicare Physical (V70.0) [facility] Office Visit On: 25-Jun-2013 11:05 Encounter Reason: Follow up for chronic medical issues - The patient feels well with minor complaints and has decreased energy level. Patient has been compliant with instructions. Current medication use: no side effects, End: 25-Jun-2013 12:04 compliant with dosing regimen and considered effective by patient. Patient sleeps 7 hours per night. Impact of disease: emotional impact-mild. Nutrition: balanced diet and supplemental vitamins. The me dical issues the patient is following up for include asthma, cardiac issues, depression, gastric reflux, high blood pressure, high cholesterol and other (lupus, obesity, hx. breast cancer, gout, TINO, vitamin d def., allergic rhinitis ). Encounter Diagnosis: Impaired fasting glucose (790.21), Hypertension 401.1 (Renamed from Hypertension (401.0)), Hypercholesteremia (272.0), Anxiety (300.00), Gout, unspecified (274.9), Gerd (530.81), Obstructive sleep apnea (327.23), arthritis,unspecified (716.90), Knee pain (719.46), Degenerative Disc Disease - Lumbar (722.52), HX, PERSONAL, MALIGNANCY, BREAST (V10.3), Low back pain (724.2), Well Women Exam, No Pap (V72.31) (Mammo), DISORDER, NONRHEUMATIC TRICUSPID VALVE (424.2), Allergic rhinitis (477.9), Sinusitis,chronic (473.9), Heart murmur (785.2), Nodule of parotid gland, Vitamin D deficiency (268.9), Cataract (366.9), Obesity (278.00), Constipation (564.00), Hip pain (719.45), BMI 50.0-59.9, adult (V85.43), Systemic lupus erythematosus (710.0), BMI 60.0-69.9, ADULT (V85.44) [facility] Office Visit On: 26-Mar-2013 14:06 Encounter Reason: Follow up for chronic medical issues - The patient feels well with minor complaints and has decreased energy level. Patient has been compliant with instructions. Current medication use: experiencing yuridia End: 26-Mar-2013 14:50 e effects (crestor causing constipation ), compliant with dosing regimen and considered effective by patient. Patient sleeps 7 hours per night. Impact of disease: emotional impact-mild. Nutrition: jostin rafaela diet and supplemental vitamins. The medical issues the patient is following up for include blood sugar issues, cardiac issues, depression (anxiety ), gastric reflux, high blood pressure, high choles terol, osteoarthritis and other (obesity, hx. breast cancer, lupus, allergic rhinitis ).Encounter Diagnosis: Impaired fasting glucose (790.21), Anxiety (300.00), Hypertension 401.1 (Renamed from Hypertension (401.0)), Hypercholesteremia (272.0), Low back pain (724.2), HX, PERSONAL, MALIGNANCY, BREAST (V10.3), Well Women Exam, No Pap (V72.31) (Mammo), Allergic rhinitis (477.9), DISORDER, NONRHEUMATIC TRICUSPID VALVE (424.2), Obstructive sleep apnea (327.23), Gerd (530.81), arthritis,unspecified (716.90), Degenerative Disc Disease - Lumbar (722.52), Knee pain (719.46), Obesity (278.00), Constipation (564.00), BMI 50.0-59.9, adult (V85.43), Hip pain (719.45), Gout, unspecified (274.9), ALLERGIC RHINITIS DUE TO OTHER ALLERGEN (477.8), Cataract (366.9), Heart murmur (785.2), Sinusitis,chronic (473.9), Lupus erythematosus (695.4), Systemic lupus erythematosus (710.0), Vitamin D deficiency (268.9), Nodule of parotid gland (527.8) [facility] Lab Order On: 08-Jan-2013 17:59 Encounter Diagnosis: Hypertension 401.1 (Renamed from Hypertension (401.0)) End: 08-Jan-2013 18:02 [facility] Office Visit On: 15-Dec-2012 11:08 Encounter Reason: Follow up for chronic medical issues - The patient feels well with minor complaints, has good energy level and is sleeping well. Patient has been compliant with instructions. Current medication use: no End: 15-Dec-2012 12:29 side effects and compliant with dosing regimen. Patient sleeps 6 hours per night. Impact of disease: no overall impact. Nutrition: balanced diet.Encounter Diagnosis: Impaired fasting glucose (790.21), Hypertension 401.1 (Renamed from Hypertension (401.0)), Anxiety (300.00), Gerd (530.81), Obstructive sleep apnea (327.23), arthritis,unspecified (716.90), Knee pain (719.46), Degenerative Disc Disease - Lumbar (722.52), HX, PERSONAL, MALIGNANCY, BREAST (V10.3), Low back pain (724.2), Well Women Exam, No Pap (V72.31) (Mammo), DISORDER, NONRHEUMATIC TRICUSPID VALVE (424.2), Allergic rhinitis (477.9), Obesity (278.00), Sinusitis,chronic (473.9), Hypercholesteremia (272.0), ALLERGIC RHINITIS DUE TO OTHER ALLERGEN (477.8), Cataract (366.9), Heart murmur (785.2), BMI 50.0-59.9, adult (V85.43), Gout, unspecified (274.9), Lupus erythematosus (695.4), Systemic lupus erythematosus (710.0), Constipation (564.00), Hip pain (719.45) [facility] Lab Order On: 14-Dec-2012 11:20 Encounter Diagnosis: Hypercholesteremia (272.0), Hypertension 401.1 (Renamed from Hypertension (401.0)) End: 14-Dec-2012 11:22 [facility] Annotation/Addendum On: 22-Sep-2012 12:46 Encounter Diagnosis: Unspecified Diagnosis End: 22-Sep-2012 14:24 [facility] Office Visit On: 18-Sep-2012 13:13 Encounter Reason: Sinusitis - The last clinic visit was 3 week(s) ago. No changes in management were made at the last visit. Symptoms include nasal congestion, clear rhinorrhea, purulent rhinorrhea, forehead pain, cough End: 18-Sep-2012 13:54 and headache. Onset was sudden. The symptoms occur constantly. The patient describes this as moderate in severity and worsening. Associated symptoms include fever and sore throat, while associated symptoms do not include chills or diplopia. Encounter Diagnosis: Acute sinusitis, unspecified (461.9), ALLERGIC RHINITIS DUE TO OTHER ALLERGEN (477.8) [facility] Office Visit On: 24-Aug-2012 12:13 Encounter Reason: Follow up for chronic medical issues - The patient feels well with minor complaints and has decreased energy level. Patient has been compliant with instructions. Current medication use: no side effects End: 24-Aug-2012 13:08 and compliant with dosing regimen. Patient sleeps 7 hours per night. Impact of disease: emotional impact-mild. Nutrition: balanced diet and supplemental vitamins. The medical issues the patient is follo wing up for include blood sugar issues, cardiac issues, depression (anxiety ), high blood pressure, high cholesterol and other (hx. breast cancer, obesity, cataract, allergic rhinitis, DDD, lupus, gout, TINO ).Encounter Diagnosis: Impaired fasting glucose (790.21), Hypercholesteremia (272.0), Cataract (366.9), Knee pain (719.46), arthritis,unspecified (716.90), Degenerative Disc Disease - Lumbar (722.52), Sinusitis,chronic (473.9), Obesity (278.00), BMI 50.0-59.9, adult (V85.43), Heart murmur (785.2), Gout, unspecified (274.9), Well Women Exam, No Pap (V72.31) (Mammo), Allergic rhinitis (477.9), HX, PERSONAL, MALIGNANCY, BREAST (V10.3), Hypertension 401.1 (Renamed from Hypertension (401.0)), Low back pain (724.2), Obstructive sleep apnea (327.23), Gerd (530.81), Anxiety (300.00), DISORDER, NONRHEUMATIC TRICUSPID VALVE (424.2), Lupus erythematosus (695.4), Systemic lupus erythematosus (710.0) [facility] Lab Order On: 22-Aug-2012 12:06 Encounter Diagnosis: Hypercholesteremia (272.0), Hypertension 401.1 (Renamed from Hypertension (401.0)) End: 22-Aug-2012 12:13 [facility] Office Visit On: 23-May-2012 13:57 Encounter Reason: Follow up for chronic medical issues - The patient feels well with minor complaints and has decreased energy level. Patient has been compliant with instructions. Current medication use: no side effects, End: 23-May-2012 14:38 compliant with dosing regimen and considered effective by patient. Patient sleeps 7 hours per night. Impact of disease: emotional impact-mild. Nutrition: balanced diet and supplemental vitamins. The sc dical issues the patient is following up for include blood sugar issues, cardiac issues, depression, gastric reflux, high blood pressure, high cholesterol, osteoarthritis and other (hx breast cancer, obesity, DDD, gout, lupus, cataract ). 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), DISORDER, NONRHEUMATIC TRICUSPID VALVE (424.2), Obstructive sleep apnea (327.23), Gerd (530.81), Anxiety (300.00), Limb pain (729.5), BACKACHE NOS (724.5), HX, PERSONAL, MALIGNANCY, BREAST (V10.3), Lupus erythematosus (695.4), Systemic lupus erythematosus (710.0), Septic Shock, Symptom, Cough (786.2), Allergic rhinitis (477.9), Anaphylactic shock due to serum, not elsewhere classified (999.4), Nausea (787.02), BRONCHITIS NOS (490.), Cyst, kidney, acquired (593.2), shellfish allergy, Chest pain (786.59) [facility] Office Visit On: 10-Mar-2012 14:04 Encounter Diagnosis: Degenerative Disc Disease - Lumbar (722.52), Obstructive sleep apnea (327.23), DISORDER, NONRHEUMATIC TRICUSPID VALVE (424.2) End: 10-Mar-2012 14:35 [facility] Office Visit On: 07-Mar-2012 11:22 Encounter Reason: Follow up acute care visit - The patient feels the same and worsening. Patient has been compliant with instructions. Current medication use: no side effects, compliant with dosing regimen and not consid End: 07-Mar-2012 11:43 ered effective by patient. The medical issues the patient is following up for include All identified problems below and URI.Encounter Diagnosis: SYMPTOM, DYSURIA (788.1) [facility] Office Visit On: 18-Feb-2012 13:31 Encounter Reason: Follow up for chronic medical issues - The patient does not feel well and has decreased energy level. Patient has been compliant with instructions. Current medication use: no side effects, compliant wit End: 21-Feb-2012 7:16 h dosing regimen and considered effective by patient. Patient sleeps 7 hours per night. Impact of disease: emotional impact-mild. Nutrition: balanced diet and supplemental vitamins. The medical issues t he patient is following up for include blood sugar issues, cardiac issues, depression (anxiety ), high blood pressure, high cholesterol and other (obesity, hx. breast cancer, hx. 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 The course has been increasing. The pain is characterized as stabbing. The pain is described End: 14-Feb-2012 11:47 as being located in the lumbosacral area. The pain does not radiate. There are no precipitating factors. The symptoms are aggravated by exertion. The symptoms have no relieving factors. The pain has be en associated with hip pain (not new) and paresthesias in leg (d/t sciatica- not new), while there has been no chills, back stiffness, history of back surgery or history of disc prolapse.Encounter Diagnosis: BACKACHE NOS (724.5) [facility] Office Visit On: 19-Nov-2011 13:05 Encounter Reason: Follow up for chronic medical issues - The patient feels well with minor complaints (knee pain), has good energy level and is sleeping well. Patient has been compliant with instructions. Current medicat End: 19-Nov-2011 13:37 ion use: no side effects, compliant with dosing regimen and considered effective by patient. Patient sleeps 7 hours per night. Impact of disease: emotional impact-mild. Nutrition: balanced diet and supp lemental vitamins. The medical issues the patient is following up for include blood sugar issues, cardiac issues, depression, high blood pressure, high cholesterol and other (obesity, hx. breast cancer ).Encounter Diagnosis: Impaired fasting glucose (790.21), Knee pain (719.46), Hypercholesteremia (272.0), Pulmonary embolism (415.19), Peptic Ulcer Disease (536.9), Anxiety (300.00), Gerd (530.81), Hypertension 401.1 (Renamed from Hypertension (401.0)), Well Women Exam, No Pap (V72.31) (Mammo), Obesity (278.00) [facility] Office Visit On: 05-Oct-2011 14:17 Encounter Reason: Knee Pain - This condition occurred in association with a new activity (pivoted on left knee when walking and feels like tore something). The injury involved the left knee. This occurred 2 month(s) ago End: 05-Oct-2011 14:46 during recreational activities. The injury resulted from twisting of the knee. The activity involved walking. Symptoms include knee pain, stiffness, decreased range of motion and difficulty bearing weig ht, while symptoms do not include swelling. Symptoms are located in the left anterior knee and left medial knee. There is no radiation. The patient describes the pain as sharp and burning. Onset was gra dual immediately after the injury. The symptoms occur constantly.Encounter Diagnosis: Hypercholesteremia (272.0), Knee pain (719.46) [facility] Office Visit On: 15-Feb-2011 14:05 Encounter Reason: Follow up for chronic medical issues - The patient feels well with no complaints, has good energy level and is sleeping well. Patient has been compliant with instructions. Current medication use: no yuridia End: 15-Feb-2011 14:42 e effects, compliant with dosing regimen and considered effective by patient. Patient sleeps 7 hours per night. Impact of disease: emotional impact-mild. Nutrition: balanced diet and supplemental vitami ns. The medical issues the patient is following up for include blood sugar issues, cardiac issues, depression, high blood pressure, high cholesterol and other (obesity, hx. breast cancer ).Encounter Diagnosis: Hypercholesteremia (272.0), Obesity (278.00), Hypertension 401.1 (Renamed from Hypertension (401.0)), Lupus erythematosus (695.4) [facility] Office Visit On: 13-Jul-2010 13:12 Encounter Reason: Follow up for chronic medical issues - The patient feels well with no complaints and is sleeping well. Patient has been compliant with instructions. Current medication use: no side effects, compliant wi End: 13-Jul-2010 13:52 th dosing regimen and considered effective by patient. Patient sleeps 7 hours per night. Impact of disease: emotional impact-mild. Nutrition: balanced diet and supplemental vitamins. The medical issues the patient is following up for include blood sugar issues, cardiac issues, depression, gastric reflux, high blood pressure, high cholesterol and other (obesity, hx. 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), Peptic Ulcer Disease (536.9), Sinusitis,chronic (473.9), breast cancer 174.9 (Renamed from Malignant neoplasm of breast (female), unspecified (174.9)), Obesity (278.00), Unspecified visual disturbance (368.9), Low back pain (724.2), Systemic lupus erythematosus (710.0), Lupus erythematosus (695.4), Pulmonary embolism (415.19), Septic Shock, Hypercholesteremia (272.0), Well Women Exam, No Pap (V72.31) (Mammo) [facility] Office Visit On: 11-May-2010 14:13 Encounter Reason: Follow up for chronic medical issues - The patient feels well with no complaints and is sleeping well. Patient has been compliant with instructions. Current medication use: no side effects, compliant wi End: 11-May-2010 14:35 th dosing regimen and considered effective by patient. Patient sleeps 8 hours per night. Impact of disease: emotional impact-mild. Nutrition: balanced diet and supplemental vitamins. 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), Obesity (278.00), Hypertension 401.1 (Renamed from Hypertension (401.0)), Cataract (366.9), Obstructive sleep apnea (327.23), Sinusitis,chronic (473.9), breast cancer 174.9 (Renamed from Malignant neoplasm of breast (female), unspecified (174.9)), Gerd (530.81), arthritis,unspecified (716.90), Low back pain (724.2), Unspecified visual disturbance (368.9), Lupus erythematosus (695.4), Systemic lupus erythematosus (710.0), Septic Shock, Pulmonary embolism (415.19), Hypercholesteremia (272.0) [facility] Office Visit On: 03-Apr-2010 10:43 Encounter Reason: Follow up, Diagnostic Procedure Results - Diagnostic tests include EMG/PNCV's. Date: (03-10-10). Current symptoms include other (neuralgia, aches and pains, neuropathy). Encounter Diagnosis: Meralgia paresthetica (355.1), End: 03-Apr-2010 11:08 arthritis,unspecified (716.90) [facility] Office Visit On: 12-Feb-2010 12:20 Encounter Reason: Follow up for chronic medical issues - The patient feels well with minor complaints ,has good energy level and is sleeping well. Patient has been compliant with instructions. Current medication use: no End: 12-Feb-2010 13:30 side effects ,compliant with dosing regimen and considered effective by patient. Patient sleeps 8 hours per night. Impact of disease: emotional impact-mild. Nutrition: balanced diet and supplemental vit amins. The medical issues the patient is following up for include blood sugar issues ,cardiac issues ,depression ,gastric reflux ,high blood pressure ,high cholesterol and other (hx. breast cancer, cataract, TINO, pulmonary embolism, obesity). 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), Obesity (278.00), Sinusitis,chronic (473.9), Pulmonary embolism (415.19), Low back pain (724.2), Anxiety (300.00), Cataract (366.9), arthritis,unspecified (716.90), Systemic lupus erythematosus (710.0), Lupus erythematosus (695.4), BRONCHITIS NOS (490.), Gerd (530.81), breast cancer 174.9 (Renamed from Malignant neoplasm of breast (female), unspecified (174.9)), Gout, unspecified (274.9), Limb pain (729.5), Cyst, kidney, acquired (593.2) [facility] Office Visit On: 16-Oct-2009 11:04 Encounter Reason: Follow up for chronic medical issues - The patient feels well with no complaints ,has good energy level and is sleeping well (up 2-3 X). Patient has been compliant with instructions. Current medication End: 16-Oct-2009 12:07 use: no side effects ,compliant with dosing regimen and considered effective by patient. Patient sleeps 6 hours per night. Impact of disease: no overall impact. Nutrition: balanced diet. The medical iss ues the patient is following up for include All identified problems below ,depression (anxiety) ,gastric reflux ,high blood pressure ,high cholesterol and other (lupus, sleep apnea). fasting blood sugars : (70's). , [ADDITIONAL REASON] Follow up, Laboratory Test Results - Date: (10/14/09). Current symptoms/reason for visit include/s Follow up visit with no current symptoms. There is no family history of breast canc er ,cardiovascular disease ,cystic fibrosis ,Down's syndrome ,mental retardation or myocardial infarction before age 55. Past medical history includes elevated cholesterol ,emotional problems ,gastroeso phageal reflux disease ,hypertension and other (lupus, sleep apnea). Encounter Diagnosis: Impaired fasting glucose (790.21), Hypertension 401.1 (Renamed from Hypertension (401.0)), Hypercholesteremia (272.0), Special screening for malignant neoplasms of colon (V76.51) [facility] Office Visit On: 25-Sep-2009 16:17 Encounter Diagnosis: Unspecified Diagnosis End: 25-Sep-2009 16:18 [facility] Office Visit On: 25-Sep-2009 11:59 Encounter Reason: Cough - The onset of the cough has been sudden. The cough is characterized as productive of mucoid sputum. The amount of sputum produced is half a cup per day. The cough occurs all the time. The symptom End: 25-Sep-2009 12:37 s have been associated with dyspnea ,fever (intermittent- past week) ,night sweats ,runny nose (clear) and sore throat, while the symptoms have not been associated with dysphagia ,edema ,foreign body as piration ,headache ,hemoptysis ,hoarseness ,long history of smoking ,weight loss ,wheezing or heartburn. the color of the sputum is clear. Encounter Diagnosis: Acute sinusitis, unspecified (461.9), BRONCHITIS NOS (490.) [facility] Office Visit On: 17-Jul-2009 12:02 Encounter Reason: Follow up for chronic medical issues - The patient feels well with minor complaints ,has good energy level and is sleeping well. Patient has been compliant with instructions. Current medication use: no End: 17-Jul-2009 12:40 side effects ,compliant with dosing regimen and considered effective by patient. Patient sleeps 8 hours per night. Impact of disease: emotional impact-mild. Nutrition: balanced diet and supplemental vit amins. The medical issues the patient is following up for include blood sugar issues ,cardiac issues ,depression ,gastric reflux ,high blood pressure ,high cholesterol and other (obesity, hx. breast cancer, gout, TINO, hx. PE, systemic lupus ). 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 Patient has been compliant with instructions. Current medication use: no yuridia End: 25-Mar-2009 13:22 e effects ,compliant with dosing regimen and considered effective by patient. Patient sleeps 7 hours per night. Impact of disease: emotional impact-mild. Nutrition: balanced diet and supplemental vitami ns. The medical issues the patient is following up for include blood sugar issues ,cardiac issues ,depression (anxiety ) ,gastric reflux ,high blood pressure ,high cholesterol and other (obesity, hx. br est cancer, gout, obstructive sleep apnea, SLE, arthiritis ). 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 Patient has been compliant with instructions. Current medication use End: 16-Dec-2008 11:09 : no side effects ,compliant with dosing regimen and considered effective by patient. Patient sleeps 7 hours per night. Impact of disease: emotional impact-mild. Nutrition: balanced diet and supplementa l vitamins. The medical issues the patient is following up for include cardiac issues ,depression ,gastric reflux ,high blood pressure ,high cholesterol and other (obesity, hx. breast cancer, sleep apnea, allergic rhinitis ). 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), Obstructive sleep apnea (327.23), Chest pain (786.59), Allergic rhinitis (477.9), breast cancer 174.9 (Renamed from Malignant neoplasm of breast (female), unspecified (174.9)), shellfish allergy, Hypercholesteremia (272.0), Low back pain (724.2), Anxiety (300.00), Lupus erythematosus (695.4), Obesity (278.00), Gerd (530.81), Peptic Ulcer Disease (536.9), Pulmonary embolism (415.19), Impaired fasting glucose (790.21) [facility] Office Visit On: 29-Aug-2008 11:42 Encounter Reason: Follow up for chronic medical issues - The patient feels well with minor complaints ,has decreased energy level and is sleeping well. Patient has been compliant with instructions. Current medication use End: 29-Aug-2008 12:35 : no side effects ,compliant with dosing regimen and considered effective by patient. Patient sleeps 7 hours per night. Impact of disease: emotional impact-mild. Nutrition: balanced diet and supplementa l vitamins. The medical issues the patient is following up for include cardiac issues ,depression ,high cholesterol and other (obesity, hx. breast cancer, gout, arthiritis, sleep apnea, hx. PE, peptic ulcer disease, systemic lupus ). 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 Patient has been compliant with instructions. Current medication use: no side effects and compliant with dosing regimen. Patient End: 10-Jun-2008 11:11 sleeps 7 hours per night. Nutrition: balanced diet. The medical issues the patient is following up for include other (gout). Encounter Diagnosis: Gout, unspecified (274.9) [facility] Office Visit On: 27-May-2008 10:10 Encounter Reason: Foot Pain - The onset of the foot pain has been acute and has been occurring in a persistent pattern for 1 weeks. The course has been worsening. The foot pain is severe. The foot pain is characterized a End: 27-May-2008 13:28 s a burning sensation. The foot pain is described as being located in the medial column (left) and dorsal foot. The foot pain is aggravated by any movement. The pain has not been relieved by anything. Encounter Diagnosis: Gout, unspecified (274.9) [facility] Office Visit On: 23-May-2008 10:35 Encounter Reason: Follow up for chronic medical issues - The patient feels well with minor complaints ,has good energy level and is sleeping well. Patient has been compliant with instructions. Current medication use: no End: 23-May-2008 11:44 side effects ,compliant with dosing regimen and considered effective by patient. Patient sleeps 7 hours per night. Impact of disease: emotional impact-mild. Nutrition: balanced diet. The medical issues the patient is following up for include cardiac issues ,depression ,high blood pressure ,high cholesterol and other (obesity, hx. breast cancer ). 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 Patient has been compliant with instructions. Current medication use: no End: 20-Feb-2008 15:11 side effects ,compliant with dosing regimen and considered effective by patient. Patient sleeps 7 hours per night. Impact of disease: emotional impact-mild. Nutrition: balanced diet and supplemental vit amins. The medical issues the patient is following up for include cardiac issues ,depression ,high blood pressure ,high cholesterol and other (obesity, hx breast cancer, lupus, sleep apnea ). 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 Patient has been compliant with instructions. Current medication use End: 20-Nov-2007 15:26 : no side effects ,compliant with dosing regimen and considered effective by patient. Patient sleeps 6 hours per night. Impact of disease: emotional impact-mild. Nutrition: balanced diet. The medical is sues the patient is following up for include cardiac issues ,depression ,gastric reflux ,high blood pressure ,high cholesterol and other (obesity, hx breast cancer ). Encounter Diagnosis: Hypertension 401.1 (Renamed from Hypertension (401.0)), Hypercholesteremia (272.0), Obstructive sleep apnea (327.23), Pulmonary embolism (415.19), Anxiety (300.00), Systemic lupus erythematosus (710.0) [facility] Office Visit On: 27-Jul-2007 11:59 Encounter Reason: Follow up for chronic medical issues - The patient feels well with minor complaints ,has decreased energy level and is sleeping well. Patient has been compliant with instructions. Current medication use End: 27-Jul-2007 12:58 : no side effects ,compliant with dosing regimen and considered effective by patient. Patient sleeps 7 hours per night. Impact of disease: emotional impact-moderate. Nutrition: balanced diet. The medica l issues the patient is following up for include cardiac issues ,depression ,gastric reflux ,high blood pressure ,high cholesterol ,osteoarthritis and other (obesity, hx. breast cancer, sleep apnea ). 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 Patient has been compliant with instructions. Current medication use End: 27-Apr-2007 13:10 : no side effects ,compliant with dosing regimen and considered effective by patient. Patient sleeps 7 hours per night. Impact of disease: emotional impact-mild. Nutrition: balanced diet. The medical is sues the patient is following up for include depression ,high blood pressure ,high cholesterol and other (obesity hx right breast cancer ). 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 Patient has been compliant with instructions. Current medication u End: 23-Dec-2006 10:29 se: no side effects ,compliant with dosing regimen and considered effective by patient. Patient sleeps 5 hours per night. Impact of disease: emotional impact-mild. Nutrition: balanced diet. The medical issues the patient is following up for include depression (anxiety ) ,high blood pressure and other (right breast cancer recent dx. obesity ). 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 Patient has been compliant with instructions. Current medication use: experiencing side effects (Medrol dose pack caus End: 20-Oct-2006 11:20 ing major hyperness and irritability ) ,compliant with dosing regimen and considered effective by patient. The patient feels well with minor complaints ,has good energy level and is sleeping well. Patie nt sleeps 8 hours per night. Impact of disease: emotional impact-mild. Nutrition: balanced diet and supplemental vitamins. Note for Follow up ER: 10-18-06 had [place] food--some shellfish--started 10 i nutes after eat tingle in nose and mouth. then throat felt funny, starting to swell in tongue. 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 Date: (08-23-06). Current symptoms/reason for visit include/s Symptoms include nausea ,past history o End: 20-Sep-2006 15:14 f hypertension and other (obesity ). Past medical history includes cardiovascular disease ,elevated cholesterol ,elevated triglycerides ,hypertension ,peptic ulcer disease ,psychiatric illness (anxiety ) ,renal disease and other (obesity ). Note for Follow up, Laboratory Test Results: reveiwed with patient recent tests get lupus flare last week, last few days, some nausea-no other signs and symptoms , no advil using tylenol, ? related to flare, Encounter Diagnosis: Well Women Exam, No Pap (V72.31) (Mammo), Hypercholesteremia (272.0), Nausea (787.02) [facility] Historical Summary On: 29-Aug-2006 15:26 [facility] End: 29-Aug-2006 15:37 Office Visit On: 16-Aug-2006 14:04 Encounter Reason: new patient female physical - Last seen between 6-12 months ago. General health: feels well with minor complaints (takes it day to day) ,has good energy level and is sleeping well. The patient's appetit End: 18-Aug-2006 6:20 e is normal. Nutrition: eating a variety of foods. Exercises 0 days per week. Sleeps on average 6 hours per night. Normal bowel and bladder habits. Current emotional problems include anxiety. screening, Pap smear (30 yrs). 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
--- OUTSIDE RECORDS SUMMARY | 2018-10-18 06:06 | XMS RPT_ITS ---
:1945 Author Organization [employer] Name Relationship Address Phone ELIZABETH NAM [address] + [address] [place] [address] R Unknown Unavailable Unavailable ELIZABETH NAM [address] + [address] [place] [address] R Unknown Unavailable Unavailable ELIZABETH NAM [address] + [address] [place] [address] R Unknown Unavailable Unavailable ELIZABETH NAM [address] + [address] [place] [address] R Unknown Unavailable Unavailable ELIZABETH NAM [address] + [address] [place] [address] R Unknown Unavailable Unavailable ELIZABETH NAM Unknown [address] + [place] [address] ELIZABETH NAM Unknown [address] + [place] [address] ELIZABETH NAM [address] + [address] [place] [address] R Unknown Unavailable Unavailable ELIZABETH NAM [address] + [address] [place] [address] R Unknown Unavailable Unavailable ELIZABETH NAM [address] + [address] [place] [address] R Unknown Unavailable Unavailable ELIZABETH NAM [address] + [address] [place] [address] R Unknown Unavailable Unavailable Care Team Providers Name Role Phone Eileen Kat ORDINARY SEAMAN-C Attending Unavailable Eileen Kat ORDINARY SEAMAN-C Referring Unavailable Radha Sebastian Primary Care Unavailable Yuri Walsh Attending Unavailable Yuri Walsh Referring Unavailable Radha Sebastian Primary Care Unavailable Sohail Ellison Attending Unavailable Sohail Ellison Referring Unavailable Ciesa, Radha Primary Care Unavailable Prebish, Eileen ORDINARY SEAMAN-C Attending Unavailable Prebish, Eileen ORDINARY SEAMAN-C Referring Unavailable Fabyesa, Radha Primary Care Unavailable Nico, Yuri Attending Unavailable Nico, Yuri Referring Unavailable Ciesa, Radha Primary Care Unavailable Jabour, Sohail Attending Unavailable Jabour, Sohail Referring Unavailable Ciesa, Radha Primary Care Unavailable Nico, Yuri Attending Unavailable Nico, Yuri Referring Unavailable Ciesa, Radha Primary Care Unavailable Annie Morales Attending Unavailable Ciesa, Radha Primary Care Unavailable Jabour, Sohail Attending Unavailable Jabour, Vinctu Referring Unavailable Ciesa, Radha Primary Care Unavailable MASCI, AUSTIN A Admitting Unavailable MASCI, AUSTIN A Attending Unavailable MASCI, AUSTIN A Referring Unavailable MASCI, AUSTIN A Referring Unavailable MASCI, AUSTIN A Referring Unavailable MASCI, AUSTIN A Attending Unavailable MASCI, AUSTIN A Referring Unavailable MASCI, AUSTIN A Referring Unavailable MASCI, AUSTIN A Referring Unavailable MARIELA NGUYEN (ROUTE SALES TRAINEE) Attending Unavailable MASCI, AUSTIN A Referring Unavailable KEILABOUR , DR. 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, [facility] unspecified / Hospital D50.9(ICD-10) Repository 04/19/2018 Unknown E11.9 - Type 2 Vellanki, Active [place] diabetes mellitus [facility] without Hospital complications / Repository E11.9(ICD-10) 04/19/2018 Unknown M06.4 - Inflammatory Vellanki, Active [place] polyarthropathy / [facility] M06.4(ICD-10) Hospital Repository 04/19/2018 Unknown M79.7 - Fibromyalgia Vellanki, Active [place] / M79.7(ICD-10) [facility] Hospital Repository 04/19/2018 Unknown M51.37 - Other Vellanki, Active [place] intervertebral disc [facility] degeneration, Hospital lumbosacral region / Repository M51.37(ICD-10) 04/19/2018 Unknown M21.40 - Flat foot Andrew, Active [place] [pes planus] [facility] (acquired), Hospital unspecified foot / Repository M21.40(ICD-10) 04/19/2018 Unknown K21.9 - Vellanki, Active [facility] Gastro-esophageal [facility] reflux disease Hospital without esophagitis Repository / K21.9(ICD-10) 04/19/2018 Unknown I10 - Essential Vellanki, Active [facility] (primary) [facility] hypertension / Hospital I10(ICD-10) Repository 04/19/2018 Unknown F41.9 - Anxiety Vellanedenilson, Active [place] disorder, [facility] unspecified / Hospital F41.9(ICD-10) Repository 04/19/2018 Unknown N39.46 - Mixed Vellanedenilson, Active [facility] incontinence / [facility] N39.46(ICD-10) Hospital Repository 04/19/2018 Unknown Z85.3 - Personal Velsilvestre, Active [facility] history of malignant [facility] neoplasm of breast / Hospital Z85.3(ICD-10) Repository 02/06/2018 Unknown D64.9 - Anemia, Jabour, Active [place] unspecified / [facility] D64.9(ICD-10) Hospital Repository 02/06/2018 Unknown K74.60 - Unspecified Jabour, Active [place] cirrhosis of liver / [facility] K74.60(ICD-10) Hospital Repository 10/31/2017 Admitting Unknown / Jabour, Active [facility] Medical diagnosis UNK(Unknown) [facility] Repository 08/19/2017 Active Splenomegaly, not NA Active [place] elsewhere classified [facility] / R16.1(ICD-10) [place] Repository 07/21/2017 Active Thrombocytopenia, NA Active [place] unspecified / [facility] D69.6(ICD-10) [place] Repository 08/31/2017 Active Personal history of AUSTIN RODGERS Active [place] malignant neoplasm [facility] of breast / [place] Z85.3(ICD-10) Repository PROCEDURES PROCEDURES No Procedure Records FoundVITAL SIGNS VITAL SIGNS No Vital Signs Records FoundRESULTS RESULTS OPERATIVE REPORT Observed: 07/17/2018 Status: F Source: [place] 9:55 AM [facility] REPOSITORY [facility] Medical Records Department [address] [place] [address] Operative Report 07/17/18 0952 MR#: [id number] Acct: [id number] Name: FRANCE NAM Rep #: [id number] : 1945 72 From: Yuri Walsh MD PCP: Radha Sebastian NP Status: REG SDC Y Location: [place] [address] Problem List (1) Degeneration of intervertebral disc of lumbosacral region Status: Chronic (2) Lumbar facet arthropathy Status: Chronic (3) Lumbosacral spondylosis Status: Chronic Report of Operation Date of Procedure: 07/17/18 Pre-Operative Diagnosis: Lumbosacral spondylosis, lumbosacral degenerative disc disease, lumbar facet arthropathy Post-Operative Diagnosis: Lumbosacral spondylosis, lumbosacral degenerative disc disease, lumbar facet arthropathy Surgery/Procedure Performed:: Right-sided lumbar facet steroid injection L3, L4, [...] at approximately 25-degree angle, starting on the right L3, ending on the right S1, [...] ASSESSMENT AND PLAN: This is a 72-year-old Female with Lumbosacral spondylosis, lumbosacral degenerative disc disease, and lumbar facet arthropathy, status post right-sided lumbar facet steroid injection L3 through S1. The patient will continue her current medications. The patient will follow in approximately 2 weeks for possible repeat of the procedure if indicated. 07/17/18 0955 <Electronically signed by Yuri Walsh MD> Date Yuri Walsh MD CC: Radha Sebastian NP; Yuri Walsh Signed BEDSIDE GLUCOSE Collected: 07/17/2018 Status: F Source: [place] 8:10 AM [facility] REPOSITORY TYPE CODE TESTS RESULT OUT OF RANGE REFERENCE UNITS LAB L501.080 70-110 mg/dL Normal BEDSIDE GLU 101 Result Comment: MANAGEMENT OF PATIENT CARE PER NURSING PROTOCOL Performed By: #### L501.080 #### [facility] Point of Care [address] [place] [address] L/S SPINE MIN 4 Observed: 07/17/2018 Status: F Source: [place] VIEWS 3:39 AM [facility] REPOSITORY [facility] Imaging Services [address] [place] [address] L/S Spine Min 4 Views MR#: [id number] Acct: [id number] Name: FRANCE NAM Rep #: [id number] : 1945 F 72 From: Toñito Castellanos MD PCP: Radha Sebastain NP [place] [facility] [place]/S Spine Min 4 Views Date of Exam: 07/17/18 Exam# [id number] Ordering Dr: Yuri Walsh MD PROCEDURE: Right L3 S1 facet joint block. DATE OF EXAMINATION: July 17, 2018. INDICATION: Female, 72 years old. Chronic low back pain. FLUOROSCOPY TIME (if supplied): (0:20) minutes/seconds. 4 coned down intraoperative views were obtained. Intraoperative imaging was provided for right L3 S1 facet joint block. RAD/L/S Spine Min 4 Views IMPRESSION: Intraoperative imaging was provided for right L3 S1 facet joint block. Electronically Signed: Toñito Castellanos MD at 9:42 EST Tel [phone], Service support , CC: Radha Sebastian ORDINARY SEAMAN; Yuri Walsh Printing Equipment Mechanic Apprentice: Signed CBC-COMPLETE BLOOD CNT Collected: 07/14/2018 Status: F Source: [place] NO DIFF 2:54 PM [facility] REPOSITORY TYPE CODE TESTS RESULT OUT OF RANGE REFERENCE UNITS LAB L100.1000 4.4-11.0 K/mm3 Low WBC 3.1 LAB L100.1200 4.2-5.4 M/mm3 Low RBC 3.83 LAB L100.1300 12.0-15.0 g/dl Normal HGB 12.3 LAB L100.1400 37-47 % Normal HCT 38.9 LAB L100.1500 81-99 fL High MCV 101.6 LAB L100.1600 27.0-32.0 pg High MCH 32.1 LAB L100.1700 32-36 g/gl Low MCHC 31.6 LAB L100.1810 11.6-14.6 % Normal RDW CV 13.7 LAB L100.1820 35.1-43.9 fl High RDW SD 51.3 LAB L100.1900 150-450 K/mm3 Low PLT 74 LAB L100.2000 6.2-12.0 fl Normal MPV 9.1 Performed By: #### L100.0500 #### [facility] [address] [place], [address] COMPREHENSIVE METABOLIC Collected: 07/14/2018 Status: F Source: [place] 2:54 PM [facility] REPOSITORY TYPE CODE TESTS RESULT OUT OF RANGE REFERENCE UNITS LAB L501.0100 74-106 mg/dL High GLU 115 Result Comment: Fasting Glucose result from 100 to 125 mg/dL suggests IMPAIRED HOMEOSTASIS per A.D.A. criteria. Please note revised GLUCOSE reference range effective 2017. LAB L501.1000 7-18 mg/dL Normal BUN 16 LAB L501.1100 0.55-1.02 mg/dL Normal CREAT,SERUM 0.85 Result Comment: The validity of the calculated GFR AND GFRAA in patients over 70 years has not been determined. Clinical correlation is essential. LAB L501.1110 >60 mL/min Normal EST GFR 70 Result Comment: Non- GFR Calc LAB L501.1115 >60 mL/min Normal EST GFR - AA 85 Result Comment: GFR Calc LAB L501.1300 10-20 RATIO Normal BUN/CRE 18.8 LAB L501.1500 6.4-8.2 g/dL T Normal PROT 7.1 LAB L501.1800 3.2-5.0 g/dL Low ALB 3.0 LAB L501.1950 2.2-4.2 g/dL Normal GLOB 4.1 LAB L501.2000 0.9-2.4 RATIO Low A/G 0.7 LAB L501.2200 8.5-10.1 mg/dL CA Normal 9.3 LAB L501.4100 15-37 U/L Normal AST 37 LAB L501.4305 45-117 U/L Normal ALK P 109 LAB L501.4405 13-56 U/L Normal ALT 27 LAB L501.4600 0.20-1.00 mg/dL T Normal BILI 0.50 LAB L501.5300 136-145 mmol/L NA Normal 144 LAB L501.5600 3.5-5.1 mmol/L K Normal 4.0 LAB L501.5900 98-107 mmol/L High CL 109 LAB L501.6100 21.0-32.0 mmol/L Normal CO2 27.0 LAB L501.6200 5-15 Normal GAP 8 Performed By: #### L500.4050, L503.6150, L503.6531 #### [facility] [address] [place], [address] IRON Collected: 07/14/2018 Status: F Source: [place] 2:54 PM [facility] REPOSITORY TYPE CODE TESTS RESULT OUT OF RANGE REFERENCE UNITS LAB L503.6150 50-170 ug/dL Normal IRON 98 Performed By: #### L500.4050, L503.6150, L503.6550 #### [facility] [address] [place], [address] FERRITIN Collected: 07/14/2018 Status: F Source: [place] 2:54 PM [facility] REPOSITORY TYPE CODE TESTS RESULT OUT OF RANGE REFERENCE UNITS LAB L503.6550 8-252 ng/mL Normal FERRITIN 45 Performed By: #### L500.4050, L503.6150, L503.6550 #### [facility] [address] [place], [address] PROTHROMBIN TIME W/INR Collected: 07/14/2018 Status: F Source: [place] 2:54 PM [facility] REPOSITORY TYPE CODE TESTS RESULT OUT OF RANGE REFERENCE UNITS LAB L300.4150 11.7-14.9 SECONDS Normal PROTIME 14.2 LAB L300.4200 Normal INR 1.1 Performed By: #### L300.3900, L300.4310 #### [facility] [address] [place], [address] PARTIAL THROMBOPLAST Collected: 07/14/2018 Status: F Source: [place] TIME 2:54 PM [facility] REPOSITORY TYPE CODE TESTS RESULT OUT OF RANGE REFERENCE UNITS LAB L300.4310 24.1-36.2 Seconds Normal PTT 30.4 Performed By: #### L300.3900, L300.4310 #### [facility] [address] [place], [address] AFP, TUMOR MARKER Collected: 07/14/2018 Status: F Source: [place] 2:54 PM [facility] REPOSITORY Order Comment: Is Patient ? N TYPE CODE TESTS RESULT OUT OF RANGE REFERENCE UNITS LAB L3300.0700 0.0-8.3 ng/mL Normal AFP TUMOR 4.1 2253 Result Comment: Rikki ECLIA methodology Performed at: [facility] [address] [id number] Color Paste Mixing Supervisor: Sohail Palafox PhD, Phone: [phone] Performed By: #### L3300.0700 #### [facility] (refer to report for specific site) refer to report for address and phone number CREATININE FINGERSTICK Collected: 07/04/2018 Status: F Source: [place] 12:52 PM [facility] REPOSITORY TYPE CODE TESTS RESULT OUT OF REFERENCE UNITS RANGE LAB L9100.0210 0.55-1.02 mg/dL High CREATININE WB 1.2 LAB L9100.0220 >60 mL/min Low EGFR WB 45.0000 Performed By: #### L9100.0200 #### [facility] Point of Care [address] [place] [address] ABDOMEN W/WO IV Observed: 07/04/2018 Status: F Source: [place] CONTRAST 12:12 PM [facility] REPOSITORY [facility] Imaging Services [address] [place] [address] Abdomen W/WO IV Contrast MR#: [id number] Acct: [id number] Name: FRANCE NAM Rep #: [id number] : 1945 F 72 From: Toñito Castellanos MD PCP: Radha Sebastian NP Status: REG CLI Study: Abdomen W/WO IV Contrast Date of Exam: 07/04/18 Exam# [id number] Ordering Dr: Sohail Ellison MD STUDY: CT ABDOMEN WITH AND WITHOUT CONTRAST REASON FOR EXAM: Female, 72 years old. History of nonalcoholic cirrhosis. Fatty liver. History of right breast cancer with lumpectomy and radiation treatment. RADIATION DOSAGE (If Supplied By Facility): CTDIvol = ( 25.35 ) mGy, DLP = ( 2097.71 ) mGycm TECHNIQUE: Transaxial images were obtained pre and post I.V. administration of 100 ml of Isovue 300, and with oral contrast. Sagittal and coronal images were reconstructed. Individualized dose optimization techniques were used for this CT. COMPARISON: None. FINDINGS: Minimal increased markings at the lung bases worse on the right side suggestive of basilar atelectasis and/or scarring. Coronary artery calcification. Normal liver. There are surgical clips in the gallbladder fossa consistent with a prior cholecystectomy. Mild splenomegaly. Varicosities are seen in the region of the splenic hilum suggestive of a venous collateral circulation. The portal vein is patent. It is not distended. Normal pancreas. There is a small, circumscribed, smooth, low attenuation right adrenal mass, consistent with an adrenal adenoma. This measures 2.5 cm x 1.6 cm. Normal left adrenal gland. There is a 3.5 cm x 5 cm cyst in the medial inferior aspect of the right kidney. Normal left kidney. There is a small hiatal hernia. Normal small intestine. Normal colon. The appendix is visualized and appears normal. There is diffuse atherosclerotic calcification of the abdominal aorta, without a demonstrated aneurysm. Normal inferior vena cava. Normal retroperitoneum. Normal abdominal wall. Disc space narrowing and degeneration at the L4-L5 level. Grade 1 anterior listhesis of L4 on L5 without spondylolysis. CT/Abdomen W/WO IV Contrast IMPRESSION: Mild splenomegaly. There is evidence of varicosities in the splenic hilum. Electronically Signed: Toñito Castellanos MD at 10:39 EST Tel [phone], Service support , CC: Radha Sebastian NP; Sohail Ellison Printing Equipment Mechanic Apprentice: Signed PELVIS 1 OR 2 VIEWS Observed: 04/19/2018 Status: F Source: [place] 3:40 PM [facility] REPOSITORY [facility] Imaging Services [address] [place] [address] Pelvis 1 or 2 Views MR#: [id number] Acct: [id number] Name: FRANCE NAM Rep #: [id number] : 1945 F 72 From: David Gonzalez MD PCP: Radha Sebastian NP Status: REG CLI Study: Pelvis 1 or 2 Views Date of Exam: 04/19/18 Exam# [id number] Ordering Dr: Annie Morales MD STUDY: X-RAY - PELVIS REASON FOR EXAM: Female, 72 years old. [...] Normal visualized left femoral head. Normal left acetabulum. Normal left hip joint. RAD/Pelvis 1 or 2 Views IMPRESSION: No definite abnormality. Electronically Signed: David Gonzalez MD at 15:27 EDT , Service support , CC: Radha Sebastian NP; Annie Morales MD Printing Equipment Mechanic Apprentice: Signed CBC W/DIFF, AUTOMATED Collected: 04/19/2018 Status: F Source: [place] 3:38 PM [facility] REPOSITORY TYPE CODE TESTS RESULT OUT OF RANGE REFERENCE UNITS LAB L100.1000 4.4-11.0 K/mm3 Low WBC 3.8 LAB L100.1200 4.2-5.4 M/mm3 Low RBC 3.89 LAB L100.1300 12.0-15.0 g/dl Normal HGB 12.4 LAB L100.1400 37-47 % Normal HCT 38.3 LAB L100.1500 81-99 fL Normal MCV 98.5 LAB L100.1600 27.0-32.0 pg Normal MCH 31.9 LAB L100.1700 32-36 g/gl Normal MCHC 32.4 LAB L100.1810 11.6-14.6 % High RDW CV 15.2 LAB L100.1820 35.1-43.9 fl High RDW SD 53.4 LAB L100.1900 150-450 K/mm3 Low PLT 94 LAB L100.2000 6.2-12.0 fl Normal MPV 9.3 LAB L100.2100 47-70 % Normal NEUT% 57.4 LAB L100.2200 19-41 % Normal LY% 29.2 LAB L100.2300 0-10 % Normal MONO% 6.3 LAB L100.2400 0-5 % High EO% 6.3 LAB L100.2500 0-1 % Normal BASO% 0.8 LAB L100.2550 0.0-0.9 % Normal IM GRAN % 0.000 Result Comment: IG% - Immature Granulocytes (promyelocytes, myelocytes and metamyelocytes) > 1% indicates that a LEFT SHIFT is Present. LAB L100.2620 2.0-7.7 X10 3/uL Normal Absolute Neut 2.2 LAB L100.2720 0.83-4.51 X10 3/ul Normal Absolute Lymph 1.12 Performed By: #### L100.0100, L101.9900 #### [facility] [address] [facility] [id number] ERYTHROCYTE SED RATE Collected: 04/19/2018 Status: F Source: [place] 3:38 PM [facility] REPOSITORY TYPE CODE TESTS RESULT OUT OF RANGE REFERENCE UNITS LAB L102.0000 0-30 mm/hr High SED RATE 46 Performed By: #### L100.0100, L101.9900 #### [facility] [address] [facility] [id number] COMPREHENSIVE METABOLIC Collected: 04/19/2018 Status: F Source: [facility] 3:38 PM [facility] REPOSITORY TYPE CODE TESTS RESULT OUT OF RANGE REFERENCE UNITS LAB L501.0100 74-106 mg/dL High GLU 145 Result Comment: Fasting Glucose result greater than or equal to 126 mg/dL suggests DIABETES MELLITUS per A.D.A. criteria. Please note revised GLUCOSE reference range effective 2017. LAB L501.1000 7-18 mg/dL Normal BUN 12 LAB L501.1100 0.55-1.02 mg/dL Normal CREAT,SERUM 0.87 Result Comment: The validity of the calculated GFR AND GFRAA in patients over 70 years has not been determined. Clinical correlation is essential. LAB L501.1110 >60 mL/min Normal EST GFR 68 Result Comment: Non- GFR Calc LAB L501.1115 >60 mL/min Normal EST GFR - AA 82 Result Comment: GFR Calc LAB L501.1300 10-20 RATIO Normal BUN/CRE 13.8 LAB L501.1500 6.4-8.2 g/dL T Normal PROT 7.4 LAB L501.1800 3.2-5.0 g/dL Normal ALB 3.2 LAB L501.1950 2.2-4.2 g/dL Normal GLOB 4.2 LAB L501.2000 0.9-2.4 RATIO Low A/G 0.8 LAB L501.2200 8.5-10.1 mg/dL CA Normal 9.5 LAB L501.4100 15-37 U/L High AST 43 LAB L501.4305 45-117 U/L Normal ALK P 109 LAB L501.4405 13-56 U/L Normal ALT 28 LAB L501.4600 0.20-1.00 mg/dL T Normal BILI 0.60 LAB L501.5300 136-145 mmol/L NA Normal 139 LAB L501.5600 3.5-5.1 mmol/L K Normal 3.7 LAB L501.5900 98-107 mmol/L CL Normal 104 LAB L501.6100 21.0-32.0 mmol/L Normal CO2 24.0 LAB L501.6200 5-15 Normal GAP 11 Performed By: #### L500.4050, L501.6710, L505.7010 #### [facility] [address] [place], [place], [id number] CRP Collected: 04/19/2018 Status: F Source: [place] 3:38 PM [facility] REPOSITORY TYPE CODE TESTS RESULT OUT OF RANGE REFERENCE UNITS LAB L501.6710 0.0-3.0 mg/L High 3.33 C-REACTIVE PROT Result Comment: C-Reactive Protein (CRP) provides useful information for the diagnosis, therapy and monitoring of inflammatory processes and associated diseases. For the evaluation of Relative Risk for Cardiovascular Disease, a High Sensitivity CRP (HSCRP) should be ordered. Performed By: #### L500.4050, L501.6710, L505.7010 #### [facility] [address] [facility] [address] [place], [place], [id number] RHEUMATOID FACTOR Collected: 04/19/2018 Status: F Source: [place] 3:38 PM [facility] REPOSITORY TYPE CODE TESTS RESULT OUT OF RANGE REFERENCE UNITS LAB L505.7010 <15 IU/mL Normal RHEUMATOID FAC < 10.0 Performed By: #### L500.4050, L501.6710, L505.7010 #### [facility] [address] [place], [place], [id number] ANTINUCLEAR ANTIBODIES Collected: 04/19/2018 Status: F Source: [place] DIRECT 3:38 PM [facility] REPOSITORY TYPE CODE TESTS RESULT OUT OF RANGE REFERENCE UNITS LAB L3100.5475 Negative Normal Negative TYE-DIRECT Result Comment: Performed at: [facility] [address] [id number] Color Paste Mixing Supervisor: Sohail Palafox PhD, Phone: [phone] Performed By: #### L3100.5475, L3100.9100 #### [facility] (refer to report for specific site) refer to report for address and phone number SJOGREN'S ANTIBODIES Collected: 04/19/2018 Status: F Source: [place] A/B 3:38 PM [facility] REPOSITORY TYPE CODE TESTS RESULT OUT OF RANGE REFERENCE UNITS LAB L3100.9200 0.0-0.9 AI Normal Anti-SS-A < 0.2 LAB L3100.9300 0.0-0.9 AI Normal Anti-SS-B < 0.2 Performed By: #### L3100.5475, L3100.9100 #### [facility] (refer to report for specific site) refer to report for address and phone number HEPATITIS B SURFACE Collected: 04/19/2018 Status: F Source: [place] AG 3:38 PM [facility] REPOSITORY TYPE CODE TESTS RESULT OUT OF RANGE REFERENCE UNITS LAB L3100.0400 Negative Normal HB Negative SURF AG Result Comment: Performed at: [facility] [address] [id number] Color Paste Mixing Supervisor: Sohail Palafox PhD, Phone: [phone] Performed at: 2[facility] - [facility] [address] [id number] Color Paste Mixing Supervisor: Noe Fitzgerald PhD, Phone: [phone] Performed at: [facility] - [facility] [address] [id number] Color Paste Mixing Supervisor: Juanpablo Zamora MD, Phone: [phone] Performed By: #### L3100.0390, L3100.0528, L3100.0625, L3410.1400, L4600.0100 #### [facility] (refer to report for specific site) refer to report for address and phone number HEP B SURFACE Collected: 04/19/2018 Status: F Source: [place] ANTIBODIES 3:38 PM [facility] REPOSITORY TYPE CODE TESTS RESULT OUT OF RANGE REFERENCE UNITS LAB L3100.0528 . Normal Hep B Non Reactive Lee AB Result Comment: Non Reactive: Inconsistent with immunity, less than 10 mIU/mL Reactive: Consistent with immunity, greater than 9.9 mIU/mL Performed By: #### L3100.0390, L3100.0528, L3100.0625, L3410.1400, L4600.0100 #### [facility] (refer to report for specific site) refer to report for address and phone number HEPATITIS C ANTIBODIES Collected: 04/19/2018 Status: F Source: [place] 3:38 PM [facility] REPOSITORY TYPE CODE TESTS RESULT OUT OF RANGE REFERENCE UNITS LAB L3100.0650 0.0-0.9 s/co ratio Normal HEP C AB <0.1 Result Comment: Negative: < 0.8 Indeterminate: 0.8 - 0.9 Positive: > 0.9 The CDC recommends that a positive HCV antibody result be followed up with a HCV Nucleic Acid Amplification test ([id number]). Performed By: #### L3100.0390, L3100.0528, L3100.0625, L3410.1400, L4600.0100 #### [facility] (refer to report for specific site) refer to report for address and phone number HLA [id number] Collected: 04/19/2018 Status: F Source: [place] 3:38 PM [facility] REPOSITORY TYPE CODE TESTS RESULT OUT OF RANGE REFERENCE UNITS LAB L3410.1500 . Normal HLA Negative B27 Result Comment: HLA-B*27 Negative B27 allele interpretation for all loci based on IMGT/HLA database version 3.27 This test was developed and its performance characteristics determined by [facility]. It has not been cleared or approved by the Food and Drug Administration. [facility] Lab CLIA ID Number [id number] This test was performed using PCR (Polymerase Chain Reaction)/SSOP (Sequence Specific Oligonucleotide Probes) technique. SBT (Sequence Based Typing) and/or SSP (Sequence Specific Primers) may be used as supplemental methods when necessary. Please contact HLA Customer Service at if you have any questions. Director of HLA Laboratory Dr Noe Fitzgerald, PhD Performed By: #### L3100.0390, L3100.0528, L3100.0625, L3410.1400, L4600.0100 #### [facility] (refer to report for specific site) refer to report for address and phone number CCP IGG ANTIBODIES Collected: 04/19/2018 Status: F Source: [place] 3:38 PM [facility] REPOSITORY TYPE CODE TESTS RESULT OUT OF RANGE REFERENCE UNITS LAB L4600.0100 0-19 units Normal ANTI-CCP 11 [id number] Result Comment: Negative <20 Weak positive 20 - 39 Moderate positive 40 - 59 Strong positive >59 Performed By: #### L3100.0390, L3100.0528, L3100.0625, L3410.1400, L4600.0100 #### [facility] (refer to report for specific site) refer to report for address and phone number OPERATIVE REPORT Observed: 03/20/2018 Status: F Source: [place] 11:29 AM [facility] REPOSITORY [facility] Medical Records Department [address] [place] [address] Operative Report 03/20/18 1126 MR#: [id number] Acct: [id number] Name: FRANCE NAM Nash Rep #: [id number] : 1945 72 From: Yuri Walsh MD PCP: Radha Sebastian NP [place] [facility] [place] [facility] [place] Problem List (1) Degeneration of intervertebral disc of lumbosacral region Status: Chronic (2) Lumbar facet arthropathy Status: Chronic (3) Lumbosacral spondylosis Status: Chronic Report of Operation Date of Procedure: 03/20/18 Pre-Operative Diagnosis: Lumbosacral spondylosis, lumbosacral degenerative disc disease, lumbar facet arthropathy Post-Operative Diagnosis: Lumbosacral spondylosis, lumbosacral degenerative disc disease, lumbar facet arthropathy Surgery/Procedure Performed:: Left-sided lumbar facet steroid injection L3, L4, L5, S1 Description of Surgical Findings:: PROCEDURE: Left-sided lumbar facet steroid injection L3, L4, L5, S1 PREOPERATIVE DIAGNOSIS: Lumbosacral spondylosis, lumbosacral degenerative disc disease, lumbar facet arthropathy POSTOPERATIVE DIAGNOSIS: Lumbosacral spondylosis, lumbosacral degenerative disc disease, lumbar facet arthropathy ANESTHESIA: MAC COMPLICATIONS: None [...] Female with Lumbosacral spondylosis, lumbosacral degenerative disc disease, lumbar facet arthropathy, status post left-sided lumbar facet steroid injection [id number] S1. The patient will continue his current medications. The patient will follow in approximately 2 weeks for possible repeat of the procedure if indicated. 03/20/18 1129 <Electronically signed by Yuri Walsh MD> Date Yuri Walsh MD CC: Radha Sebastian NP; Yuri Walsh Signed BEDSIDE GLUCOSE Collected: 03/20/2018 Status: F Source: [place] 9:07 AM [facility] REPOSITORY TYPE CODE TESTS RESULT OUT OF RANGE REFERENCE UNITS LAB L501.080 70-110 mg/dL Normal BEDSIDE GLU 92 Result Comment: MANAGEMENT OF PATIENT CARE PER NURSING PROTOCOL Performed By: #### L501.080 #### [facility] Point of Care [address] [place] [address] LUMBAR SPINE 2 OR 3 Observed: 03/19/2018 Status: F Source: [place] VIEWS 11:47 PM [facility] REPOSITORY [facility] Imaging Services [address] [place] [address] Lumbar Spine 2 or 3 Views MR#: [id number] Acct: [id number] Name: FRANCE NAM Rep #: [id number] : 1945 F 72 From: Toñito Castellanos MD PCP: Radha Sebastian NP Status: [facility] Study: Lumbar Spine 2 or 3 Views Date of Exam: 03/20/18 Exam# [id number] Ordering Dr: Yuri Walsh MD PROCEDURE: Left L3-S1 facet joint block. DATE OF EXAMINATION: March 20, 2018. INDICATION: Female, 72 years old. Chronic low back pain. FLUOROSCOPY TIME (if supplied): (0:23) minutes/seconds Intraoperative fluoroscopic services were provided for left L3-S1 facet joint block. RAD/Lumbar Spine 2 or 3 Views IMPRESSION: Fluoroscopic services provided for left L3-S1 facet joint block. Electronically Signed: Toñito Castellanos MD at 9:06 EDT Tel [phone], Service support , CC: Radha Sebastian ORDINARY SEAMAN; Yuri Walsh Printing Equipment Mechanic Apprentice: Signed CNOVSP Observed: 03/14/2018 Status: COMPLETED Source: [place] 9:00 AM [facility] REPOSITORY Visit (SP) Office (HEMAWS) FRANCE NAM ([id number]) 1945 F Date Time Provider Department 03/14/18 9:00 AM MARIELA NGUYEN (NICK) DANY During your visit today, we recorded the following information about you: Temperature Pulse Blood pressure Weight 98.6 degrees 67/minute 127/88 136.1 kg Mariela Nguyen APRN.CNP 03/16/2018 12:23 PM Signed Chief Complaint Patient presents with: Established Patient HPI:France Nam is a 72 year old female who presents here today for follow up thrombocytopenia. Per Dr. Rodgers's previous note: H/o underwent breast conserving surgery for a suspicious 6 mm breast mass on mammogram. She was incidentally found to have a small focus of invasive cancer comprising a T1b lesion. Lymph nodes were negative. She completed external beam radiation therapy, but then developed an abscess in the surgery bed. She developed sepsis. ? Resumed anastrozole therapy 07/07. Missed one month's worth of therapy due to cost of med. Patient had a CBC as part of her routine follow-up and was found to have a platelet count of 83,000. This was verified by review of the PBS. The remainder the CBC revealed a white count of 5300. The differential was normal. No immature cells visualized. Red blood cell count slightly lobe hemoglobin 11.4 g/dL. Chemistry panel showed normal LFTs. She's had no unusual bleeding. She tended to bruise easily but she attributes this to diclofenac which she uses for generalized arthralgias. She is previously diagnosed with osteoarthritis and rheumatoid arthritis. She had an ultrasound of the liver in 2014 that suggested mild hepatomegaly with fatty infiltration. Followed by GI-EGD done 3 months ago-Dr. Ellison. Told that she has a hole in her esophagus. Has f/u appt. next week. Denies bleeding or easy bruising. Appetite:good Energy level:poor Denies fevers or recent illness. Resp:denies cough or sob Cardiac:denies chest pain/palpitations GI:denies abd pain, n/v, occ. constipation I need to start my fiber pill again. :denies dysuria/hematuria Extrem:chronic knee/back pain Neuro:tingling to L hand Skin:denies rashes/lesions Heme:denies bleeding The ROS is otherwise negative. Past medical history, appointments, medications, allergies reviewed. No changes. EXAM: BP 127/88 Pulse 67 Temp 37 ?C (98.6 ?F) (Oral) Wt 136.1 kg (300 lb) BMI 56.68 kg/m? Exam done in w/c per pt. request. APPEARANCE Well appearing, alert, in no acute distress, well- hydrated, well nourished. HEART RRR with normal S1 and S2, no murmurs LUNG clear to auscultation LYMPH NODES No cervical lymphadenopathy, No supraclavicular lymphadenopathy and No axillary lymphadenopathy. ABDOMEN obese, bowel sounds normoactive, no bruits, soft, non-tender, non-distended, without organomegaly or palpable masses EXTREMITIES chronic edema NEURO Awake, alert and oriented x 3, using w/c today and No involuntary motions. SKIN Skin color, texture, turgor normal, no suspicious rashes or lesions LABS: Component Latest Ref Rng AND Units 09/13/2017 03/14/2018 WBC, Regan 3.70 - 11.00 k/uL 5.31 4.22 RBC, Regan 3.90 - 5.20 m/uL 3.57 (L) 3.79 (L) Hemoglobin, Concrete 11.5 - 15.5 g/dL 11.1 (L) 11.6 Hematocrit, Regan 36.0 - 46.0 % 35.3 (L) 37.4 MCV, Regan 80.0 - 100.0 fL 98.9 98.7 MCH, Concrete 26.0 - 34.0 pg 31.1 30.6 MCHC, Concrete 30.5 - 36.0 g/dL 31.4 31.0 RDW, Concrete 11.5 - 15.0 % 13.8 19.3 (H) Platelet Cnt, Regan 150 - 400 k/uL 84 (L) 82 (L) MPV, Concrete 9.0 - 12.7 fL 8.3 (L) 8.3 (L) Absol Gran Count 1.45 - 7.50 k/uL 3.31 2.32 ASSESSMENT/PLAN: 1. Thrombocytopenia (HCC) - ICD9: 287.5, ICD10: D69.[address] 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 -Reviewed the results of bone marrow biopsy revealed in all the laboratory findings in detail with the patient and her daughter. Bone marrow is normal. -Encouraged her to continue efforts at weight loss. -Plan: -OV/CBC in about 6 months. - No concerning findings on exam. - Reviewed CBC with pt. and Dr. Rodgers. - Ptl count stable. - Follow up in 6 months with CBC. - Pt. aware to call office with any questions/concerns. The patient indicates understanding of these issues and agrees with the plan. Discussed case with Dr. Rodgers who agrees with treatment plan. Mariela Nguyen APRN.NICK ? Theodora Whitney LPN 03/14/2018 9:20 AM Signed Est patient. Six month office visit. Discuss recent labs. Theodora Whitney LPN Referring Provider: AUSTIN RODGERS [[id number]] Allergies As of Date: 03/14/2018 Noted Allergy Reaction CLINDAMYCIN 06/26/2007 2 - Rash ERTHROMYCIN (ERYTHROMYCIN) 01/07/2009 5 - Intolerance Comments: caused kidney problems IODINE 12/05/2006 7 - Swelling PENICILLINS 12/05/2006 2 - Rash SULFA (SULFONAMIDE ANTIBIOTICS) 12/05/2006 5 - Intolerance Date Reviewed: 03/14/2018 Reviewed by: Mariela Blanco) Patrick - Fully Assessed Reason for Visit: Established Patient [175] Primary Visit Diagnosis:Thrombocytopenia (HCC) [D69.6] Follow-up and Disposition History Recorded Prescriptions as of 03/14/2018 Sig: CHOLECALCIFEROL (VITAMIN D3) * Take 5,000 Units by mouth twi* HYDROCHLOROTHIAZIDE 25 MG TAB* Take 25 mg by mouth once santino* GABAPENTIN 300 MG CAPSULE Take 300 mg by mouth three ti* CALCIUM POLYCARBOPHIL CHEWABL* Take 1 Each by mouth once tj* * VENLAFAXINE 37.5 MG TABLET Take 1 tablet by mouth once d* * LISINOPRIL 20 MG TABLET Take one(1) tablet daily. EPIPEN 2-ZACKERY 0.3 MG/0.3 ML IN* Medication notes this encounter HYDROCHLOROTHIAZIDE 25 MG TABLET >> Theodora Whitney LPN 03/14/2018 8:59 AM >> THEODORA WHITNEY LPN TueMar 14, 2018 8:59 AM Takes once or twice a week EZETIMIBE 10 MG TABLET >> Theodora Whitney LPN 03/14/2018 8:58 AM >> THEODORA WHITNEY LPN TueMar 14, 2018 8:58 AM discontinued METFORMIN ER 500 MG TABLET,EXTENDED RELEASE 24 HR >> Theodora Whitney LPN 03/14/2018 8:59 AM >> THEODORA WHITNEY LPN Mar 14, 2018 8:59 AM discontinued DICLOFENAC SODIUM 50 MG TABLET,DELAYED RELEASE >> Theodora Whitney LPN 03/14/2018 8:58 AM >> THEODORA WHITNEY LPN Mar 14, 2018 8:58 AM discontinued ATORVASTATIN 80 MG TABLET >> Theodora Whitney LPN 03/14/2018 8:57 AM >> THEODORA WHITNEY LPN Mar 14, 2018 8:57 AM discontinued Problem List As Of Date 03/14/2018 Noted Resolved MALIGN NEOPL BREAST NOS [C50.919] INVALID FOR* HX: breast cancer [Z85.3] INVALID FOR* Thrombocytopenia (HCC) [D69.6] INVALID FOR* Splenomegaly [R16.1] INVALID FOR* Visit Notes: >> Theodora Whitney LPN TueMar 14, 2018 9:00 AM Status: Signed Est patient. Six month office visit. Discuss recent labs. Theodora Whitney LPN Encounter Status:Closed by MARIELA NGUYEN CNP on 03/16/18 PROGRESS Observed: 03/14/2018 Status: COMPLETED Source: [place] 8:56 AM [facility] [place] REPOSITORY HNO ID: [id number] Author: Mariela (Nick) Patrick Service: (none) Author Type: Nurse Practitioner Type: Progress Notes Filed: 03/16/2018 12:23 PM Note Text: Chief Complaint Patient presents with: Established Patient HPI:France Nam is a 72 year old female who presents here today for follow up thrombocytopenia. Per Dr. Rodgers's previous note: H/o underwent breast conserving surgery for a suspicious 6 mm breast mass on mammogram. She was incidentally found to have a small focus of invasive cancer comprising a T1b lesion. Lymph nodes were negative. She completed external beam radiation therapy, but then developed an abscess in the surgery bed. She developed sepsis. ? Resumed anastrozole therapy 07/07. Missed one month's worth of therapy due to cost of med. Patient had a CBC as part of her routine follow-up and was found to have a platelet count of 83,000. This was verified by review of the PBS. The remainder the CBC revealed a white count of 5300. The differential was normal. No immature cells visualized. Red blood cell count slightly lobe hemoglobin 11.4 g/dL. Chemistry panel showed normal LFTs. She's had no unusual bleeding. She tended to bruise easily but she attributes this to diclofenac which she uses for generalized arthralgias. She is previously diagnosed with osteoarthritis and rheumatoid arthritis. She had an ultrasound of the liver in 2014 that suggested mild hepatomegaly with fatty infiltration. Followed by GI-EGD done 3 months ago-Dr. Ellison. Told that she has a hole in her esophagus. Has f/u appt. next week. Denies bleeding or easy bruising. Appetite:good Energy level:poor Denies fevers or recent illness. Resp:denies cough or sob Cardiac:denies chest pain/palpitations GI:denies abd pain, n/v, occ. constipation I need to start my fiber pill again. :denies dysuria/hematuria Extrem:chronic knee/back pain Neuro:tingling to L hand Skin:denies rashes/lesions Heme:denies bleeding The ROS is otherwise negative. Past medical history, appointments, medications, allergies reviewed. No changes. EXAM: BP 127/88 Pulse 67 Temp 37 ?C (98.6 ?F) (Oral) Wt 136.1 kg (300 lb) BMI 56.68 kg/m? Exam done in w/c per pt. request. APPEARANCE Well appearing, alert, in no acute distress, well-hydrated, well nourished. HEART RRR with normal S1 and S2, no murmurs LUNG clear to auscultation LYMPH NODES No cervical lymphadenopathy, No supraclavicular lymphadenopathy and No axillary lymphadenopathy. ABDOMEN obese, bowel sounds normoactive, no bruits, soft, non-tender, non-distended, without organomegaly or palpable masses EXTREMITIES chronic edema NEURO Awake, alert and oriented x 3, using w/c today and No involuntary motions. SKIN Skin color, texture, turgor normal, no suspicious rashes or lesions LABS: Component Latest Ref Rng AND Units 09/13/2017 03/14/2018 WBC, Concrete 3.70 - 11.00 k/uL 5.31 4.22 RBC, Regan 3.90 - 5.20 m/uL 3.57 (L) 3.79 (L) Hemoglobin, Regan 11.5 - 15.5 g/dL 11.1 (L) 11.6 Hematocrit, Concrete 36.0 - 46.0 % 35.3 (L) 37.4 MCV, Concrete 80.0 - 100.0 fL 98.9 98.7 MCH, Regan 26.0 - 34.0 pg 31.1 30.6 MCHC, Concrete 30.5 - 36.0 g/dL 31.4 31.0 RDW, Concrete 11.5 - 15.0 % 13.8 19.3 (H) Platelet Cnt, Regan 150 - 400 k/uL 84 (L) 82 (L) MPV, Regan 9.0 - 12.7 fL 8.3 (L) 8.3 (L) Absol Gran Count 1.45 - 7.50 k/uL 3.31 2.32 ASSESSMENT/PLAN: 1. Thrombocytopenia (HCC) - ICD9: 287.5, ICD10: D69.[address] 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 -Reviewed the results of bone marrow biopsy revealed in all the laboratory findings in detail with the patient and her daughter. Bone marrow is normal. -Encouraged her to continue efforts at weight loss. -Plan: -OV/CBC in about 6 months. - No concerning findings on exam. - Reviewed CBC with pt. and Dr. Rodgers. - Ptl count stable. - Follow up in 6 months with CBC. - Pt. aware to call office with any questions/concerns. The patient indicates understanding of these issues and agrees with the plan. Discussed case with Dr. Rodgers who agrees with treatment plan. Mariela Nguyen APRN.ROUTE SALES TRAINEE ? [place] ABS GR + CBC Collected: 03/14/2018 Status: F Source: [place] 8:46 AM [facility] REPOSITORY TYPE CODE TESTS RESULT OUT OF REFERENCE UNITS RANGE LAB WWBC 3.70-11.00 k/uL Concrete WBC 4.22 LAB WRBC 3.90-5.20 m/uL Low Regan RBC 3.79 LAB WHGB 11.5-15.5 g/dL Concrete Hemoglobin 11.6 LAB WHCT 36.0-46.0 % Concrete Hematocrit 37.4 LAB WMCV 80.0-100.0 fL Regan MCV 98.7 LAB WMCH 26.0-34.0 pg Regan MCH 30.6 LAB WMCHC 30.5-36.0 g/dL Concrete MCHC 31.0 LAB WRDW 11.5-15.0 % Regan High RDW 19.3 LAB WPLT 150-400 k/uL Low Regan Platelet Cnt 82 LAB WMPV 9.0-12.7 fL Low Concrete MPV 8.3 Result Comment: Test performed at: [facility], [address] [place] [address] Rd[address] [place] [address]. LAB ABGRAN 1.45-7.50 k/uL Absol Gran 2.32 Count FINAL SURGICAL Observed: 02/10/2018 Status: F Source: [facility] PATHOLOGY REPORT 10:06 AM [facility] REPOSITORY . Pathology Reports Accession: Collected Date/Time: Received Date/Time: Pathologist: [id number] 02/10/2018 10:06 EDT 02/13/2018 09:54 EDT MD ADAM WELSH Final Surgical Pathology Report DIAGNOSIS: STOMACH (ANTRUM), BIOPSY: - HELICOBACTER PYLORI GASTRITIS. - IMMUNOHISTOCHEMICAL STAIN (WITH APPROPRIATE CONTROL) FOR H. PYLORI ORGANISMS IS POSITIVE COMMENT: [facility]# [id number] CLINICAL INFORMATION: Procedure: EGD Preoperative diagnosis: CIRRHOSIS Postoperative diagnosis: PORTAL HYPERTENSION GASTROPATHY SPECIMEN: A STOM, BX - GASTRIC ANTRUM BIOPSIES GROSS DESCRIPTION: Received in formalin labeled gastric antrum biopsies are a few su tissue fragments ranging from minute to 0.3 cm. TS -1 Dictated by SEAN MARTÍNEZ ([facility]) MICROSCOPIC DESCRIPTION: Slides reviewed. Electronically Signed by Pathology Report verified by [facility] Electronically signed by ADAM WELSH MD Sign out Date: 02/15/2018 10:17 Performing Lab: [facility], [address] [place] [address] Performed By: #### SPFR #### [place] [address] CBC-COMPLETE BLOOD CNT Collected: 02/06/2018 Status: F Source: [place] NO DIFF 3:02 PM [facility] REPOSITORY Order Comment: SEND COPY OF RESULTS TO RADHA ESPINOZA. TYPE CODE TESTS RESULT OUT OF RANGE REFERENCE UNITS LAB L100.1000 4.4-11.0 K/mm3 Low WBC 4.1 LAB L100.1200 4.2-5.4 M/mm3 Low RBC 3.40 LAB L100.1300 12.0-15.0 g/dl Low HGB 9.8 LAB L100.1400 37-47 % Low HCT 31.8 LAB L100.1500 81-99 fL Normal MCV 93.5 LAB L100.1600 27.0-32.0 pg Normal MCH 28.8 LAB L100.1700 32-36 g/gl Low MCHC 30.8 LAB L100.1810 11.6-14.6 % High RDW CV 16.2 LAB L100.1820 35.1-43.9 fl High RDW SD 53.7 LAB L100.1900 150-450 K/mm3 Low PLT 103 LAB L100.2000 6.2-12.0 fl Normal MPV 9.2 Performed By: #### L100.0500 #### [facility] [address] [place], [place], [address] COMPREHENSIVE METABOLIC Collected: 02/06/2018 Status: F Source: [place] PROFIL 3:02 PM [facility] REPOSITORY Order Comment: SEND COPY OF RESULTS TO RADHA ESPINOZA. TYPE CODE TESTS RESULT OUT OF RANGE REFERENCE UNITS LAB L501.0100 74-106 mg/dL Low GLU 65 Result Comment: Please note revised GLUCOSE reference range effective 2017. LAB L501.1000 7-18 mg/dL High BUN 19 LAB L501.1100 0.55-1.02 mg/dL Normal CREAT,SERUM 0.86 Result Comment: The validity of the calculated GFR AND GFRAA in patients over 70 years has not been determined. Clinical correlation is essential. LAB L501.1110 >60 mL/min Normal EST GFR 69 Result Comment: Non- GFR Calc LAB L501.1115 >60 mL/min Normal EST GFR - AA 84 Result Comment: GFR Calc LAB L501.1300 10-20 RATIO High BUN/CRE 22.2 LAB L501.1500 6.4-8.2 g/dL T Normal PROT 7.6 LAB L501.1800 3.2-5.0 g/dL Normal ALB 3.2 LAB L501.1950 2.2-4.2 g/dL High GLOB 4.4 LAB L501.2000 0.9-2.4 RATIO Low A/G 0.7 LAB L501.2200 8.5-10.1 mg/dL CA Normal 9.3 LAB L501.4100 15-37 U/L Normal AST 34 LAB L501.4305 45-117 U/L Normal ALK P 88 LAB L501.4405 13-56 U/L Normal ALT 27 LAB L501.4600 0.20-1.00 mg/dL T Normal BILI 0.40 LAB L501.5300 136-145 mmol/L NA Normal 145 LAB L501.5600 3.5-5.1 mmol/L K Normal 4.3 LAB L501.5900 98-107 mmol/L CL Normal 107 LAB L501.6100 21.0-32.0 mmol/L Normal CO2 28.0 LAB L501.6200 5-15 Normal GAP 10 Performed By: #### L500.4050, L503.6150 #### [facility] [address] [place], [place], [address] IRON Collected: 02/06/2018 Status: F Source: [place] 3:02 PM [facility] REPOSITORY Order Comment: SEND COPY OF RESULTS TO RADHA ESPINOZA. TYPE CODE TESTS RESULT OUT OF RANGE REFERENCE UNITS LAB L503.6150 50-170 ug/dL Low IRON 46 Performed By: #### L500.4050, L503.6150 #### [place] [facility] [address] [place], [address] AFP, TUMOR MARKER Collected: 02/06/2018 Status: F Source: [place] 3:02 PM [facility] REPOSITORY Order Comment: SEND COPY OF RESULTS TO RADHA ESPINOZA. Is Patient ? N TYPE CODE TESTS RESULT OUT OF RANGE REFERENCE UNITS LAB L3300.0700 0.0-8.3 ng/mL Normal AFP TUMOR 4.2 2253 Result Comment: Rikki ECLIA methodology Performed at: [facility] [address] [id number] Color Paste Mixing Supervisor: Sohail Palafox PhD, Phone: [phone] Performed By: #### L3300.0700 #### [facility] (refer to report for specific site) refer to report for address and phone number CNCO Observed: 01/03/2018 Status: COMPLETED Source: [place] 12:00 AM [facility] REPOSITORY Letter Text [address] [place] [address] [phone] 01/03/2018 France Nam [address] [place] [address] Dear Ms. Nam: Due to a change in the provider's schedule, it has been necessary to reschedule your 03/13 appointment. Enclosed please find a new appointment reminder that will replace the one previously sent to you. If this appointment is not convenient for you, please contact our office at [phone]. Thank you for choosing the [facility] as your Healthcare Provider. Sincerely, Appointment Office Enclosure US LIVER Observed: 10/31/2017 Status: F Source: [facility] 7:40 AM [facility] REPOSITORY ELASTOGRAPHY WITH IMAGING, US LIVER Ordering Physician: Sohail Ellison 10/31/2017 7:40 AM ULTRASOUND OF THE LIVER AND ELASTOGRAPHY: Clinical Statement: Hepatomegaly FINDINGS: The liver is enlarged at 23 cm in greatest length. There is mild coarsened appearance of hepatic parenchyma. No focal mass or ductal dilatation is seen. ARFI median: 2.43 M/sec IQR - 0.58 IQR/median ratio equals 0.23 (must be 0.3 or less to ensure technical adequacy) Optimal cutoffs for ARFI: Greater than or equal to F1 - 1.02 M/sec Greater than or equal to F2 - 1.34 M/sec Greater than or equal to F3 - 1.55 M/sec Greater than or equal to F4 - 1.8 M/sec IMPRESSION: Hepatomegaly with coarsened appearance of hepatic parenchyma which is nonspecific. Elastography score F4 indicating significant fibrosis. ---- Electronic Signature on File ---- Signed By: Anival Rosa MD [email or web address] Dictated: 10/31/2017 8:25 AM Signed: 10/31/2017 8:29 AM Reported By: ANIVAL ROSA M.D. Signed By: ANIVAL ROSA M.D. ELASTOGRAPHY WITH Observed: 10/31/2017 Status: F Source: [facility] 7:40 AM [facility] ELASTOGRAPHY WITH IMAGING, US LIVER Ordering Physician: Sohail Ellison 10/31/2017 7:40 AM ULTRASOUND OF THE LIVER AND ELASTOGRAPHY: Clinical Statement: Hepatomegaly FINDINGS: The liver is enlarged at 23 cm in greatest length. There is mild coarsened appearance of hepatic parenchyma. No focal mass or ductal dilatation is seen. ARFI median: 2.43 M/sec IQR - 0.58 IQR/median ratio equals 0.23 (must be 0.3 or less to ensure technical adequacy) Optimal cutoffs for ARFI: Greater than or equal to F1 - 1.02 M/sec Greater than or equal to F2 - 1.34 M/sec Greater than or equal to F3 - 1.55 M/sec Greater than or equal to F4 - 1.8 M/sec IMPRESSION: Hepatomegaly with coarsened appearance of hepatic parenchyma which is nonspecific. Elastography score F4 indicating significant fibrosis. ---- Electronic Signature on File ---- Signed By: Anival Rosa MD [email or web address] Dictated: 10/31/2017 8:25 AM Signed: 10/31/2017 8:29 AM Reported By: ANIVAL ROSA M.D. Signed By: ANIVAL ROSA M.D. OPERATIVE REPORT Observed: 10/17/2017 Status: F Source: [place] 10:41 AM [facility] REPOSITORY [facility] Medical Records Department [address] [place] [address] Operative Report 10/17/17 1040 MR#: [id number] Acct: [id number] Name: FRANCE NAM Rep #: [id number] : 1945 72 From: Yuri Walsh MD PCP: Radha Sebastian NP [place] [facility] [place] [facility] [place] List (1) Degeneration of intervertebral disc of lumbosacral region Status: Chronic (2) Lumbar facet arthropathy Status: Chronic (3) Lumbosacral spondylosis Status: Chronic Report of Operation Date of Procedure: 10/17/17 Pre-Operative Diagnosis: Lumbosacral spondylosis, lumbosacral degenerative disc disease, lumbar facet arthropathy Post-Operative Diagnosis: Lumbosacral spondylosis, lumbosacral degenerative disc disease, lumbar facet arthropathy Surgery/Procedure Performed:: Right-sided lumbar facet steroid injection L3, L4, [...] at approximately 25-degree angle, starting on the right L3, ending on the right S1, [...] a 72-year-old female with lumbosacral spondylosis, lumbosacral degenerative disc disease and lumbar facet arthropathy, status post right-sided lumbar facet steroid injection L3 through S1. The patient will continue her current medications. The patient will follow in approximately 2 weeks for possible repeat of the procedure if indicated. 10/17/17 1041 <Electronically signed by Yuri Walsh MD> Date Yuri Walsh MD CC: Radha Sebastian NP; Yuri Walsh Signed BEDSIDE GLUCOSE Collected: 10/17/2017 Status: F Source: [place] 8:19 AM [facility] REPOSITORY TYPE CODE TESTS RESULT OUT OF RANGE REFERENCE UNITS LAB L501.080 70-110 mg/dL Normal BEDSIDE GLU 102 Result Comment: MANAGEMENT OF PATIENT CARE PER NURSING PROTOCOL Performed By: #### L501.080 #### [facility] Point of Care [address] [place] [address] L/S SPINE MIN 4 Observed: 10/17/2017 Status: F Source: [place] VIEWS 12:32 AM [facility] REPOSITORY [facility] Imaging Services [address] [place] [address] L/S Spine Min 4 Views MR#: [id number] Acct: [id number] Name: FRANCE NAM Rep #: [id number] : 1945 F 72 From: Toñito Castellanos MD PCP: Radha Sebastian NP [place] [facility] Study: L/S Spine Min 4 Views Date of Exam: 10/17/17 Exam# [id number] Ordering Dr: Yuri Walsh MD PROCEDURE: Right L3-S1 facet joint block. DATE OF EXAMINATION: October 17, 2017. INDICATION: Female, 72 years old. Chronic low back pain. FLUOROSCOPY TIME (if supplied): (0:14) minutes/seconds Intraoperative imaging provided for right L3-S1 facet joint block. RAD/L/S Spine Min 4 Views IMPRESSION: Imaging provided for right L3-S1 facet joint block. Electronically Signed: Toñito Castellanos MD at 11:32 EDT Tel [phone], Service support , CC: Radha Sebastian NP; Yuri Walsh Printing Equipment Mechanic Apprentice: Signed PROGRESS Observed: 09/13/2017 Status: COMPLETED Source: [place] 11:39 AM [facility] REPOSITORY O ID: [id number] Author: Austin Rodgers Service: (none) Author Type: Physician Type: Progress Notes Filed: 09/13/2017 11:42 AM Note Text: HPI: The patient is a 71-year-old female who underwent breast conserving surgery for a suspicious 6 mm breast mass on mammogram. She was incidentally found to have a small focus of invasive cancer comprising a T1b lesion. Lymph nodes were negative. She completed external beam radiation therapy, but then developed an abscess in the surgery bed. She developed sepsis. Resumed anastrozole therapy 07/07. Missed one month's worth of therapy due to cost of med. Patient had a CBC as part of her routine follow-up and was found to have a platelet count of 83,000. This was verified by review of the PBS. The remainder the CBC revealed a white count of 5300. The differential was normal. No immature cells visualized. Red blood cell count slightly lobe hemoglobin 11.4 g/dL. Chemistry panel showed normal LFTs. She's had no unusual bleeding. She tended to bruise easily but she attributes this to diclofenac which she uses for generalized arthralgias. She is previously diagnosed with osteoarthritis and rheumatoid arthritis. She had an ultrasound of the liver in 2014 that suggested mild hepatomegaly with fatty infiltration. Presents for ongoing hematologic management. Interim history: Returns today to discuss the results of laboratory studies and ultrasound of liver/spleen. No subjective change since last seen. Today's visit is a consultative/counseling visit. PMH, medications and allergies personally reviewed by me today. Any changes documented in appropriate section. PHYSICAL EXAM: VITALS: Blood pressure (!) 111/47, pulse 74, temperature 36.7 ?C (98.1 ?F), temperature source Oral, weight 134.5 kg (296 lb 8 oz). Well-appearing and in no acute distress. EYES: Sclerae are anicteric bilaterally. LYMPHATIC: There is no palpable cervical, supraclavicular adenopathy. ABDOMEN: The abdomen is obese. No tenderness. SKIN: No jaundice or rash. No petechiae. PATHOLOGY: FINAL DIAGNOSIS BONE MARROW, CORE BIOPSY, CLOT SECTION, ASPIRATE SMEAR, PERIPHERAL BLOOD: ? ? - NORMOCELLULAR BONE MARROW WITH TRILINEAGE HEMATOPOIESIS. - NORMAL TO SLIGHTLY DECREASED M:E RATIO. - ADEQUATE MEGAKARYOCYTES. - STORAGE IRON PRESENT. - NO DEFINITE EVIDENCE OF MALIGNANCY. - SEE COMMENT. COMMENT: Given the presence of mild rouleaux formation, examination of the serum for monoclonal paraprotein may be helpful. Flow cytometry showed no evidence of a lymphoproliferative disorder. Correlation with the clinical and cytogenetic findings is suggested. PERIPHERAL BLOOD: CBC ?(08/31/17) ?: ?WBC ?6.58 ; ? Hgb ?11.3 ; ? MCV ?99.4 ; ? RDW ?13.7 ; ? Plts ?92,000 Differential (%) ?: ? ? ?Segs ?53 ; ? Lymphs ?41 ; ? Monos ?4 ; ? Eos ?1 ; ?Baso ?1 Morphology/Interpretation: Normocytic anemia with slight rouleaux formation. Thrombocytopenia. BONE MARROW ASPIRATE ? ?Normal % ? ?(0-2) ? ? 1 % ? Blasts ? ?(1-5) ? ? 1 % ? Promyelo ? ?(32-72) ? 45% ? Myelos/Metas/Bands/Segs ? ?(1-6) ? ? 4 % ? Eosinophils ? ?(0-1) ? ? 0 % ? Basophils ? ?(0-4) ? ? 0 % ? Monocytes ? ?(13-37) ? 36% ? Erythroid precursors ? ?(7-23) ? ?12% ? Lymphocytes ? ?(0-2) ? ? 1 % ? Plasma cells ? ?Myeloid/Erythro (1.5-4): 1.4 ? Cells counted: 500 ?Iron stain result: Present, decreased. Ring sideroblasts not identified. ? ?Specimen Quality: Spicular, cellular aspirate. ? ?Megakaryocytes: Present with normal morphology. ? ?Erythropoiesis: Normoblastic maturation. ? ?Granulopoiesis: Normal maturation. ? ?Other: Plasma cells do not appear increased. BONE MARROW BIOPSY: Adequacy: Adequate. Cellularity: Normal to mildly increased (40%). ME ratio:?Normal to slightly decreased. Hematopoiesis: Trilineage maturation is present. Megakaryocytes: Adequate. Megakaryocyte morphology: Normal. Lymphoid infiltrate: Not identified. Atypical infiltrate: Not identified. Bone trabeculae: Unremarkable. Other: A small lipogranuloma can be seen in the core biopsy which is absent in the deeper sections. Immunostains for CD3 and CD20 show scattered interstitial T and B-cells that are not increased. ?Immunostains for CD138, kappa, and lambda show that CD138+ plasma cells are not increased and they are polytypic for kappa and lambda. . CLOT SECTION: Marrow particles: Many Morphology: Similar to biopsy, an occasional lymphoid aggregate is present composed of small lymphocytes. ANCILLARY TESTS: Flow cytometry: Performed. Cytogenetics: Pending. FISH: N/A Molecular: N/A Laboratory Developed Test (LDT) Disclaimer: Positive and negative controls stain appropriately. Performance characteristics of immunohistochemical, immunofluorescent and chromogenic in-situ hybridization tests have been determined by [facility] ([facility]) in a manner consistent with CLIA requirements. One or more of these tests have not been cleared or approved by the FDA. [facility] is regulated under CLIA as qualified to perform high-complexity testing. These tests are used for clinical purposes. They should not be regarded as investigational or for research. BRAYDON/elaina/09/01/17 ? ? Arnoldo Rawls M.D. (Electronic Signature) SPECIMEN SUBMITTED A: BONE MARROW, ?ASPIRATE RPIC B: BONE MARROW, BIOPSY RPIC C: BONE MARROW, CLOT RPIC ADDITIONAL PROCEDURE(S) CYTOGENETICS ? Date Ordered: ?08/31/2017 ? ? ? Date Reported: ?09/10/2017 Procedure Results and Interpretation (NOTE) Performing Pathologist: José Collins M.D. Lab Analysis No: [id number] Doctor/Pathologist: Vishal[facility] No: [id number] Clinical diagnosis: Thrombocytopenia Specimen Type: Bone Marrow Number of cells counted: 20 Number of cells analyzed: 20 Number of cells karyotyped: 2 Banding resolution: 400 Banding method: G-banding DIAGNOSIS: 46,XX[20] INTERPRETATION: normal, female karyotype COMMENT: ?Ten metaphase cells were analyzed from the culture supplemented with GM-CSF and ten metaphase cells were analyzed from the 24 hour unstimulated culture. Twenty of 20 cells analyzed showed a 46,XX karyotype. There was no significant numerical chromosome abnormality and no structural change detected within the limits of resolution. ? Pathologist Interpretation: ?José Collins MD ? There is no change in diagnosis. Arnoldo Rawls MD Performed by [facility] [place] Division of Molecular Pathology Cytogenetics Lab, [facility] [address] [place] [address] Toll free: Procedure Pathologist: Arnoldo Rawls M.D. FLOW CYTOMETRY - BONE MARROW LOW GRADE LEUK MARKERS ? Date Ordered: ?09/02/2017 ? ? ? Date Reported: ?09/02/2017 Procedure Results and Interpretation Specimen type: ?Bone Marrow Viability: 98% ? ? Morphology comments: see [id number] Results: Marker ? Normal Cell ? ?Result(Lymphocytes) ? ?Type CD2 ?T/NK cells ? ? ?Normal pattern CD3 ?T-cells ? Normal pattern CD4 ?T-cell subset ? Normal pattern CD5 ?T-cells ? Normal pattern CD7 ?T/NK-cells ? ? ?Normal pattern CD8 ?T-cell subset ? Normal pattern CD10 ? B-cell subset ? Normal pattern CD13 ? Myeloid ? Normal pattern CD16/56 ?T/NK cell ? ? ? Normal pattern CD19 ? B-cell ?Normal pattern CD20 ? B-cell ?Normal pattern CD23 ? B-cell subset ? Normal pattern CD45 ? Mejia-leukocyte ? Normal pattern CD79b ?B-cell ?Normal pattern CD123 ?Dendritic ? ? ? Normal pattern FMC7 ? B-cells ? Normal pattern kappa/lambda ? ? B-cells ? Polytypic Interpretation: Flow cytometric analysis of the peripheral blood reveals that 17% of total events have the CD45 and side scatter properties of lymphocytes. ?The lymphocytes are composed of a mixture of heterogenous T-cells (71%; CD4:CD8 ratio = 0.60), NK cells (6%) and polytypic B-cells (23%). ? Final Impression: There is no immunophenotypic evidence of involvement by a lymphoproliferative disorder. Correlation with the clinical ?and bone marrow histopathologic findings is suggested. ? ANALYTE SPECIFIC REAGENT (ASR) DISCLAIMER This test was developed and its performance characteristics determined by [facility] [place] ([facility]). It has not been cleared or approved by the FDA. [facility] is regulated under CLIA as qualified to perform high-complexity testing. This test is used for clinical purposes. It should not be regarded as investigational or for research. ASSESSMENT AND PLAN: (D69.6) Thrombocytopenia (HCC) (primary encounter diagnosis) Assessment: -Splenomegaly and thrombocytopenia secondary to hypersplenism from steatosis/hepatits. -Reviewed the results of bone marrow biopsy revealed in all the laboratory findings in detail with the patient and her daughter. Bone marrow is normal. -Encouraged her to continue efforts at weight loss. -Plan: -OV/CBC in about 6 months. Austin Rodgers DO CNOVSP Observed: 09/13/2017 Status: COMPLETED Source: [place] 11:10 AM [facility] REPOSITORY Visit (SP) Office (DANY) FRANCE NAM ([id number]) 1945 F Date Time Provider Department 09/13/17 11:10 AM AUSTIN RODGERS During your visit today, we recorded the following information about you: Temperature Pulse Blood pressure Weight 98.1 degrees 74/minute 111/47 134.5 kg Austin Rodgers DO 09/13/2017 11:42 AM Signed HPI: The patient is a 71-year-old female who underwent breast conserving surgery for a suspicious 6 mm breast mass on mammogram. She was incidentally found to have a small focus of invasive cancer comprising a T1b lesion. Lymph nodes were negative. She completed external beam radiation therapy, but then developed an abscess in the surgery bed. She developed sepsis. Resumed anastrozole therapy 07/07. Missed one month's worth of therapy due to cost of med. Patient had a CBC as part of her routine follow-up and was found to have a platelet count of 83,000. This was verified by review of the PBS. The remainder the CBC revealed a white count of 5300. The differential was normal. No immature cells visualized. Red blood cell count slightly lobe hemoglobin 11.4 g/dL. Chemistry panel showed normal LFTs. She's had no unusual bleeding. She tended to bruise easily but she attributes this to diclofenac which she uses for generalized arthralgias. She is previously diagnosed with osteoarthritis and rheumatoid arthritis. She had an ultrasound of the liver in 2015 that suggested mild hepatomegaly with fatty infiltration. Presents for ongoing hematologic management. Interim history: Returns today to discuss the results of laboratory studies and ultrasound of liver/spleen. No subjective change since last seen. Today's visit is a consultative/counseling visit. PMH, medications and allergies personally reviewed by me today. Any changes documented in appropriate section. PHYSICAL EXAM: VITALS: Blood pressure (!) 111/47, pulse 74, temperature 36.7 ?C (98.1 ?F), temperature source Oral, weight 134.5 kg (296 lb 8 oz). Well-appearing and in no acute distress. EYES: Sclerae are anicteric bilaterally. LYMPHATIC: There is no palpable cervical, supraclavicular adenopathy. ABDOMEN: The abdomen is obese. No tenderness. SKIN: No jaundice or rash. No petechiae. PATHOLOGY: FINAL DIAGNOSIS BONE MARROW, CORE BIOPSY, CLOT SECTION, ASPIRATE SMEAR, PERIPHERAL BLOOD: ? ? - NORMOCELLULAR BONE MARROW WITH TRILINEAGE HEMATOPOIESIS. - NORMAL TO SLIGHTLY DECREASED M:E RATIO. - ADEQUATE MEGAKARYOCYTES. - STORAGE IRON PRESENT. - NO DEFINITE EVIDENCE OF MALIGNANCY. - SEE COMMENT. COMMENT: Given the presence of mild rouleaux formation, examination of the serum for monoclonal paraprotein may be helpful. Flow cytometry showed no evidence of a lymphoproliferative disorder. Correlation with the clinical and cytogenetic findings is suggested. PERIPHERAL BLOOD: CBC ?(08/31/17) ?: ?WBC ?6.58 ; ? Hgb ?11.3 ; ? MCV ?99.4 ; ? RDW ?13.7 ; ? Plts ?92,000 Differential (%) ?: ? ? ?Segs ?53 ; ? Lymphs ?41 ; ? Monos ?4 ; ? Eos ?1 ; ?Baso ?1 Morphology/Interpretation: Normocytic anemia with slight rouleaux formation. Thrombocytopenia. BONE MARROW ASPIRATE ? ?Normal % ? ?(0-2) ? ? 1 % ? Blasts ? ?(1-5) ? ? 1 % ? Promyelo ? ?(32-72) ? 45% ? Myelos/Metas/Bands/Segs ? ?(1-6) ? ? 4 % ? Eosinophils ? ?(0-1) ? ? 0 % ? Basophils ? ?(0-4) ? ? 0 % ? Monocytes ? ?(13-37) ? 36% ? Erythroid precursors ? ?(7-23) ? ?12% ? Lymphocytes ? ?(0-2) ? ? 1 % ? Plasma cells ? ?Myeloid/Erythro (1.5-4): 1.4 ? Cells counted: 500 ?Iron stain result: Present, decreased. Ring sideroblasts not identified. ? ?Specimen Quality: Spicular, cellular aspirate. ? ?Megakaryocytes: Present with normal morphology. ? ?Erythropoiesis: Normoblastic maturation. ? ?Granulopoiesis: Normal maturation. ? ?Other: Plasma cells do not appear increased. BONE MARROW BIOPSY: Adequacy: Adequate. Cellularity: Normal to mildly increased (40%). ME ratio:?Normal to slightly decreased. Hematopoiesis: Trilineage maturation is present. Megakaryocytes: Adequate. Megakaryocyte morphology: Normal. Lymphoid infiltrate: Not identified. Atypical infiltrate: Not identified. Bone trabeculae: Unremarkable. Other: A small lipogranuloma can be seen in the core biopsy which is absent in the deeper sections. Immunostains for CD3 and CD20 show scattered interstitial T and B-cells that are not increased. ?Immunostains for CD138, kappa, and lambda show that CD138+ plasma cells are not increased and they are polytypic for kappa and lambda. . CLOT SECTION: Marrow particles: Many Morphology: Similar to biopsy, an occasional lymphoid aggregate is present composed of small lymphocytes. ANCILLARY TESTS: Flow cytometry: Performed. Cytogenetics: Pending. FISH: N/A Molecular: N/A Laboratory Developed Test (LDT) Disclaimer: Positive and negative controls stain appropriately. Performance characteristics of immunohistochemical, immunofluorescent and chromogenic in-situ hybridization tests have been determined by [facility] [place] ([facility]) in a manner consistent with CLIA requirements. One or more of these tests have not been cleared or approved by the FDA. [facility] is regulated under CLIA as qualified to perform high-complexity testing. These tests are used for clinical purposes. They should not be regarded as investigational or for research. BRAYDON/elaina/09/01/17 ? ? Arnoldo Rawls M.D. (Electronic Signature) SPECIMEN SUBMITTED A: BONE MARROW, ?ASPIRATE RPIC B: BONE MARROW, BIOPSY RPIC C: BONE MARROW, CLOT RPIC ADDITIONAL PROCEDURE(S) CYTOGENETICS ? Date Ordered: ?08/31/2017 ? ? ? Date Reported: ?09/10/2017 Procedure Results and Interpretation (NOTE) Performing Pathologist: José Collins M.D. Lab Analysis No: [id number] Doctor/Pathologist: [facility] No: [id number] Clinical diagnosis: Thrombocytopenia Specimen Type: Bone Marrow Number of cells counted: 20 Number of cells analyzed: 20 Number of cells karyotyped: 2 Banding resolution: 400 Banding method: G-banding DIAGNOSIS: 46,XX[20] INTERPRETATION: normal, female karyotype COMMENT: ?Ten metaphase cells were analyzed from the culture supplemented with GM-CSF and ten metaphase cells were analyzed from the 24 hour unstimulated culture. Twenty of 20 cells analyzed showed a 46,XX karyotype. There was no significant numerical chromosome abnormality and no structural change detected within the limits of resolution. ? Pathologist Interpretation: ?José Collins MD ? There is no change in diagnosis. Arnoldo Rawls MD Performed by [facility] [place] Division of Molecular Pathology Cytogenetics Lab, [place] [address] Toll free: Procedure Pathologist: Arnoldo Rawls M.D. FLOW CYTOMETRY - BONE MARROW LOW GRADE LEUK MARKERS ? Date Ordered: ?09/02/2017 ? ? ? Date Reported: ?09/02/2017 Procedure Results and Interpretation Specimen type: ?Bone Marrow Viability: 98% ? ? Morphology comments: see [id number] Results: Marker ? Normal Cell ? ?Result(Lymphocytes) ? ?Type CD2 ?T/NK cells ? ? ?Normal pattern CD3 ?T-cells ? Normal pattern CD4 ?T-cell subset ? Normal pattern CD5 ?T-cells ? Normal pattern CD7 ?T/NK-cells ? ? ?Normal pattern CD8 ?T-cell subset ? Normal pattern CD10 ? B-cell subset ? Normal pattern CD13 ? Myeloid ? Normal pattern CD16/56 ?T/NK cell ? ? ? Normal pattern CD19 ? B-cell ?Normal pattern CD20 ? B-cell ?Normal pattern CD23 ? B-cell subset ? Normal pattern CD45 ? Mejia-leukocyte ? Normal pattern CD79b ?B-cell ?Normal pattern CD123 ?Dendritic ? ? ? Normal pattern FMC7 ? B-cells ? Normal pattern kappa/lambda ? ? B-cells ? Polytypic Interpretation: Flow cytometric analysis of the peripheral blood reveals that 17% of total events have the CD45 and side scatter properties of lymphocytes. ?The lymphocytes are composed of a mixture of heterogenous T-cells (71%; CD4:CD8 ratio = 0.60), NK cells (6%) and polytypic B-cells (23%). ? Final Impression: There is no immunophenotypic evidence of involvement by a lymphoproliferative disorder. Correlation with the clinical ?and bone marrow histopathologic findings is suggested. ? ANALYTE SPECIFIC REAGENT (ASR) DISCLAIMER This test was developed and its performance characteristics determined by [facility] [place] ([facility]). It has not been cleared or approved by the FDA. [facility] is regulated under CLIA as qualified to perform high-complexity testing. This test is used for clinical purposes. It should not be regarded as investigational or for research. ASSESSMENT AND PLAN: (D69.6) Thrombocytopenia (HCC) (primary encounter diagnosis) Assessment: -Splenomegaly and thrombocytopenia secondary to hypersplenism from steatosis/hepatits. -Reviewed the results of bone marrow biopsy revealed in all the laboratory findings in detail with the patient and her daughter. Bone marrow is normal. -Encouraged her to continue efforts at weight loss. -Plan: -OV/CBC in about 6 months. Austin Rodgers DO Referring Provider: AUSTIN RODGERS [[id number]] Allergies As of Date: 09/13/2017 Noted Allergy Reaction CLINDAMYCIN 06/26/2007 2 - Rash ERTHROMYCIN (ERYTHROMYCIN) 01/07/2009 5 - Intolerance Comments: caused kidney problems IODINE 12/05/2006 7 - Swelling PENICILLINS 12/05/2006 2 - Rash SULFA (SULFONAMIDE ANTIBIOTICS) 12/05/2006 5 - Intolerance Date Reviewed: 09/13/2017 Reviewed by: Jessica Luciano - Fully Assessed Reason for Visit: Established Patient [175] Primary Visit Diagnosis:Thrombocytopenia (HCC) [D69.6] Other Visit Diagnosis:Splenomegaly [R16.1] Order(s):IRON + TIBC [SQIRON] Order #: [id number] FUTURE FERRITIN BLD [SQFERR] Order #: [id number] FUTURE Follow-up and Disposition History Recorded Prescriptions as of 09/13/2017 Sig: CHOLECALCIFEROL (VITAMIN D3) * Take 5,000 Units by mouth twi* EZETIMIBE 10 MG TABLET Take 10 mg by mouth once santino* HYDROCHLOROTHIAZIDE 25 MG TAB* Take 25 mg by mouth once santino* METFORMIN ER 500 MG TABLET,EX* Take 500 mg by mouth twice da* DICLOFENAC SODIUM 50 MG TABLE* Take 50 mg by mouth twice tj* GABAPENTIN 300 MG CAPSULE Take 300 mg by mouth three ti* ATORVASTATIN 80 MG TABLET Take 80 mg by mouth twice a w* CALCIUM POLYCARBOPHIL CHEWABL* Take 1 Each by mouth once tj* * VENLAFAXINE 37.5 MG TABLET Take 1 tablet by mouth once d* * LISINOPRIL 20 MG TABLET Take one(1) tablet daily. CHOLECALCIFEROL (VITAMIN D3) * Take 1,000 Units by mouth onc* EPIPEN 2-ZACKERY 0.3 MG/0.3 ML IN* * COMPOUNDED PRESCRIPTION Montero pro biotic caps t* Medication notes this encounter CHOLECALCIFEROL (VITAMIN D3) 1,000 UNIT TABLET >> Jessica Luciano MA 09/13/2017 11:13 AM >> ROBINAADELITA LIDIAJESSICA Sep 13, 2017 11:13 AM No longer taking this strength. Problem List As Of Date 09/13/2017 Noted Resolved MALIGN NEOPL BREAST NOS [C50.919] INVALID FOR* HX: breast cancer [Z85.3] INVALID FOR* Thrombocytopenia (HCC) [D69.6] INVALID FOR* Splenomegaly [R16.1] INVALID FOR* Encounter Status:Closed by AUSTIN RODGERS DO on 09/13/17 RGEAN ABS GR + CBC Collected: 09/13/2017 Status: F Source: [place] 11:05 AM [facility] REPOSITORY TYPE CODE TESTS RESULT OUT OF REFERENCE UNITS RANGE LAB WWBC 3.70-11.00 k/uL [place] WBC 5.31 LAB WRBC 3.90-5.20 m/uL Low [place] RBC 3.57 LAB WHGB 11.5-15.5 g/dL Low [place] Hemoglobin 11.1 LAB WHCT 36.0-46.0 % Low [place] Hematocrit 35.3 LAB WMCV 80.0-100.0 fL Concrete MCV 98.9 LAB WMCH 26.0-34.0 pg Regan MCH 31.1 LAB WMCHC 30.5-36.0 g/dL Concrete MCHC 31.4 LAB WRDW 11.5-15.0 % Concrete RDW 13.8 LAB WPLT 150-400 k/uL Low Concrete Platelet Cnt 84 LAB WMPV 9.0-12.7 fL Low Concrete MPV 8.3 Result Comment: Test performed at: [address] [place] [address]. LAB ABGRAN 1.45-7.50 k/uL Absol Gran 3.31 Count SED RATE [place] Collected: 09/06/2017 Status: F Source: [place] 1:41 PM [facility] REPOSITORY TYPE CODE TESTS RESULT OUT OF REFERENCE UNITS RANGE LAB WSR 0-20 mm/hr Sed Rate High [place] 57 Performed By: #### WSR, CRP, KLFRS, SEPG, MPASRM #### [facility] [address] [place], [place] [address] C-REACTIVE PROTEIN Collected: 09/06/2017 Status: F Source: [place] 1:41 PM [facility] REPOSITORY TYPE CODE TESTS RESULT OUT OF REFERENCE UNITS RANGE LAB CRP <0.9 mg/dL C-Reactive 0.3 Protein Performed By: #### WSR, CRP, KLFRS, SEPG, MPASRM #### [facility] [address], [place] [address] KAPPA/MARTINEZ,FREE,SER Collected: Status: F Source: [place] 09/06/2017 1:41 PM [facility] REPOSITORY TYPE CODE TESTS RESULT OUT OF REFERENCE UNITS RANGE LAB FKAPS 3.30-19.40 mg/L High [place], 96.5 Free, Serum Result Comment: Rarely, increased serum free light chains values may not be detected due to antigen excess phenomenon. Results should always be correlated with other laboratory results and clinical findings. LAB FLAMS 5.7-26.3 mg/L High Lambda, Free, 37.1 Serum Result Comment: Rarely, increased serum free light chains values may not be detected due to antigen excess phenomenon. Results should always be correlated with other laboratory results and clinical findings. LAB KLRAT 0.26-1.65 High K/L Ratio, 2.60 Serum Performed By: #### WSR, CRP, KLFRS, SEPG, MPASRM #### [facility] [address], [place] [address] PROTEIN ELECTROPHOR. Collected: 09/06/2017 Status: F Source: [place] 1:41 PM [facility] REPOSITORY TYPE CODE TESTS RESULT OUT OF REFERENCE UNITS RANGE LAB TPSPE 6.0-8.4 g/dL Total Protein, SPE 6.9 LAB ALBE 3.37-4.23 gm/dL Albumin Low 3.24 LAB A1GL 0.18-0.31 gm/dL Alpha 1 Globulin 0.21 LAB A2GL 0.52-0.97 gm/dL Alpha 2 Globulin 0.67 LAB BEGL 0.84-1.36 gm/dL Beta Globulin 1.02 LAB GAGL 0.70-1.44 gm/dL Gamma Globulin High 1.77 LAB SPEINT Interpretation SEE COMMENT Result Comment: No definitive M protein is identified on protein electrophoresis. LAB LOC M Protein N/A Location LAB GPERDL 0.00 gm/dL M Mckinley 0.00 Concentratn LAB SPESTF SPE Staff Review Reviewed by Hai Deleon M.D. ([id number]) Performed By: #### WSR, CRP, KLFRS, SEPG, MPASRM #### [facility] [address], [place] [address] MONOCLONL PROTEIN,BL Collected: 09/06/2017 Status: F Source: [place] 1:41 PM [facility] REPOSITORY TYPE CODE TESTS RESULT OUT OF REFERENCE UNITS RANGE LAB MPAIGG 717-1411 mg/dL High MPA Serum 1570 IgG LAB MPAIGA 78-391 mg/dL MPA Serum 361 IgA LAB MPAIGM 53-334 mg/dL MPA Serum 163 IgM LAB MPAK 534-1267 mg/dL High Serum 1510 [place] LAB MPAL 253-653 mg/dL High Serum 664 Lambda LAB MPAKL 1-3 MPA 2.27 Katie/Moore Ratio LAB MPAR No M protein is identified. No MPA M protein is Result identified. LAB MPASTF Staff Reviewed by Review Hai Deleon M.D. ([id number]) Performed By: #### WSR, CRP, KLFRS, SEPG, MPASRM #### [facility] [address], [place] [address] NURSING PROG Observed: 08/31/2017 Status: COMPLETED Source: [place] 2:22 PM [facility] REPOSITORY HNO ID: [id number] Author: Marti Garner RN Service: (none) Author Type: Registered Nurse Type: Nursing Progress Note Filed: 08/31/2017 2:33 PM Note Text: Patient did not experience a fall prior to discharge. Patient did not experience a burn prior to discharge. Marti Garner RN NURSING PROG Observed: 08/31/2017 Status: COMPLETED Source: [place] 1:33 PM [facility] REPOSITORY HNO ID: [id number] Author: Agnes Mendez RN Service: Nursing Author Type: Registered Nurse Type: Nursing Progress Note Filed: 08/31/2017 1:33 PM Note Text: Patient did not experience a fall within the Intraoperative area. Patient did not experience a burn within the Intraoperative area. Agnes Mendez RN OPERATIVE NO Observed: 08/31/2017 Status: COMPLETED Source: [place] 1:29 PM [facility] REPOSITORY HNO ID: [id number] Author: Austin Rodgers Service: Hematology/Oncology Author Type: Physician Type: Operative Report Filed: 08/31/2017 1:31 PM Note Text: SURGEON 1: Austin Rodgers D.O. ASPHALT BLENDER 1: None. OPERATION: Bone marrow aspiration and biopsy. ANESTHESIA: Moderate sedation. PREOPERATIVE DIAGNOSIS: Thrombocytopenia and splenomegaly. POSTOPERATIVE DIAGNOSIS: Same. OPERATIVE INDICATIONS: Rule out lymphoproliferative disorder. OPERATIVE FINDINGS: None. OPERATIVE PROCEDURE: The patient was brought to the operating room. After an audible time-out was performed, the patient was positioned in the left lateral decubitus position. A total of 4 mg of Versed and 100 mcg of fentanyl were administered IV to achieve conscious sedation. The skin over the right PSIS was prepped with chlorhexidine and isopropyl alcohol solution. The skin was infiltrated with 1% lidocaine and anesthesia was carried down to the periosteum of the bone. The marrow space was entered with a 4 in AVOS Cloud biopsy drill set. Approximately 0.5 mL was aspirated. Then, 10 mL were withdrawn for flow cytometry and FISH studies if indicated. The needle was then advanced and approximately 1.5 cm core was obtained without difficulty. Light pressure was applied to achieve hemostasis. A dressing was applied. ESTIMATED BLOOD LOSS: None. DRAINS: Not applicable. SPECIMENS: Bone marrow aspirate and core biopsy sample. COMPLICATIONS: None. START TIME: 13:20. STOP TIME: 13:27. Austin Rodgers DO NURSING PROG Observed: 08/31/2017 Status: COMPLETED Source: [place] 1:11 PM [facility] REPOSITORY HNO ID: [id number] Author: Marti Garner RN Service: (none) Author Type: Registered Nurse Type: Nursing Progress Note Filed: 08/31/2017 1:43 PM Note Text: [facility] PRE-OP NURSING HAND OFF NOTE SBAR Hand off given to Betzy Shaffer RN and Agnes Mendez RN. Hand off was communicated verbally and at the patient's bedside and all questions were answered. FALLS/MEREDITH Patient did not experience a fall within the Preoperative area. Patient did not experience a burn within the Preoperative area. Marti Garner RN PT ED Observed: 08/31/2017 Status: COMPLETED Source: [place] 12:39 PM [facility] REPOSITORY HNO ID: [id number] Author: Marti (Rn) Patsy RN Service: (none) Author Type: Registered Nurse Type: Patient Education Filed: 08/31/2017 12:42 PM Note Text: PRE OP LEARNING ASSESSMENT PROCEDURE/SURGERY: bone marrow biopsy READINESS TO LEARN COGNITIVE ABILITY: Alert and oriented MOTIVATION TO LEARN: Eager FAMILY SUPPORT: High - Very involved in pt care PATIENT LEARNS BEST BY: Multiple Methods FACTORS AFFECTING LEARNING: None PHYSICAL LIMITATIONS AFFECTING LEARNING: None Electronically Signed By: Marti Garner RN In Department: AMBULATORY SURGERY [place] CBC AND DIFF Collected: 08/31/2017 Status: F Source: [place] 12:20 PM [facility] REPOSITORY TYPE CODE TESTS RESULT OUT OF REFERENCE UNITS RANGE LAB WWBC 3.70-11.00 k/uL Concrete WBC 6.58 LAB WRBC 3.90-5.20 m/uL Low Concrete RBC 3.59 LAB WHGB 11.5-15.5 g/dL Low Regan Hemoglobin 11.3 LAB WHCT 36.0-46.0 % Low [place] Hematocrit 35.7 LAB WMCV 80.0-100.0 fL [place] MCV 99.4 LAB WMCH 26.0-34.0 pg Regan MCH 31.5 LAB WMCHC 30.5-36.0 g/dL Reg[place] MCHC 31.7 LAB WRDW 11.5-15.0 % [place] RDW 13.7 LAB WPLT 150-400 k/uL Low [place] Platelet Cnt 92 LAB WMPV 9.0-12.7 fL Low [place] MPV 8.9 Result Comment: Test performed at: [address] [place] [address]. LAB WNEUT % Regan Neut% 58.4 LAB WLYMP % Concrete Lymp% 29.5 LAB WMONOC % Concrete [place]% 9.1 LAB WEOS % [place] Eos% 2.7 LAB WBASO % Concrete Baso% 0.3 LAB WANEUT 1.45-7.50 k/uL Concrete Abs Neut 3.84 LAB WALYMP 1.00-4.00 k/uL Concrete Abs Lymp 1.94 LAB WAMONO <0.87 k/uL [place] Abs [place] 0.60 LAB WAEOS <0.46 k/uL [place] Abs Eos 0.18 LAB WABASO <0.11 k/uL Concrete Abs Baso <0.03 FLOW CYTO HOLD Collected: 08/31/2017 Status: F Source: [place] SAMPLE 12:20 PM [facility] REPOSITORY TYPE CODE TESTS RESULT OUT OF REFERENCE UNITS RANGE LAB BISHOP A bone marrow sample was Flow received for potential Cyto Hold flow cytometry Sample studies. Following morphologic review of the bone marrow, flow cytometric studies will be ordered by the hematopathologist if testing is indicated. Please see the corresponding bone marrow surgical pathology report. Result Comment: [id number] Performed By: #### FLOHLD #### [facility] [address] [place] [address] SURGICAL PATHOLOGY Observed: 08/31/2017 Status: C Source: [place] 12:20 PM [facility] REPOSITORY ADDITIONAL PROCEDURES PRESENT Specimen originated from [facility] Specimen #: [id number] Submitting Physician: AUSTIN RODGERS M.D. ([id number]) FINAL DIAGNOSIS BONE MARROW, CORE BIOPSY, CLOT SECTION, ASPIRATE SMEAR, PERIPHERAL BLOOD: - NORMOCELLULAR BONE MARROW WITH TRILINEAGE HEMATOPOIESIS. - NORMAL TO SLIGHTLY DECREASED M:E RATIO. - ADEQUATE MEGAKARYOCYTES. - STORAGE IRON PRESENT. - NO DEFINITE EVIDENCE OF MALIGNANCY. - SEE COMMENT. COMMENT: Given the presence of mild rouleaux formation, examination of the serum for monoclonal paraprotein may be helpful. Flow cytometry showed no evidence of a lymphoproliferative disorder. Correlation with the clinical and cytogenetic findings is suggested. PERIPHERAL BLOOD: CBC (08/31/17) : WBC 6.58 ; Hgb 11.3 ; MCV 99.4 ; RDW 13.7 ; Plts 92,000 Differential (%) : Segs 53 ; Lymphs 41 ; Monos 4 ; Eos 1 ; Baso 1 Morphology/Interpretation: Normocytic anemia with slight rouleaux formation. Thrombocytopenia. BONE MARROW ASPIRATE Normal % (0-2) 1 % Blasts (1-5) 1 % Promyelo (32-72) 45% Myelos/Metas/Bands/Segs (1-6) 4 % Eosinophils (0-1) 0 % Basophils (0-4) 0 % Monocytes (13-37) 36% Erythroid precursors (7-23) 12% Lymphocytes (0-2) 1 % Plasma cells Myeloid/Erythro (1.5-4): 1.4 Cells counted: 500 Iron stain result: Present, decreased. Ring sideroblasts not identified. Specimen Quality: Spicular, cellular aspirate. Megakaryocytes: Present with normal morphology. Erythropoiesis: Normoblastic maturation. Granulopoiesis: Normal maturation. Other: Plasma cells do not appear increased. BONE MARROW BIOPSY: Adequacy: Adequate. Cellularity: Normal to mildly increased (40%). ME ratio: Normal to slightly decreased. Hematopoiesis: Trilineage maturation is present. Megakaryocytes: Adequate. Megakaryocyte morphology: Normal. Lymphoid infiltrate: Not identified. Atypical infiltrate: Not identified. Bone trabeculae: Unremarkable. Other: A small lipogranuloma can be seen in the core biopsy which is absent in the deeper sections. Immunostains for CD3 and CD20 show scattered interstitial T and B-cells that are not increased. Immunostains for CD138, kappa, and lambda show that CD138+ plasma cells are not increased and they are polytypic for kappa and lambda. . CLOT SECTION: Marrow particles: Many Morphology: Similar to biopsy, an occasional lymphoid aggregate is present composed of small lymphocytes. ANCILLARY TESTS: Flow cytometry: Performed. Cytogenetics: Pending. FISH: N/A Molecular: N/A Laboratory Developed Test (LDT) Disclaimer: Positive and negative controls stain appropriately. Performance characteristics of immunohistochemical, immunofluorescent and chromogenic in-situ hybridization tests have been determined by [facility] [place] ([facility]) in a manner consistent with CLIA requirements. One or more of these tests have not been cleared or approved by the FDA. [facility] is regulated under CLIA as qualified to perform high-complexity testing. These tests are used for clinical purposes. They should not be regarded as investigational or for research. EDH/elaina/2/1/18 Arnoldo Rawls M.D. (Electronic Signature) SPECIMEN SUBMITTED A: BONE MARROW, ASPIRATE RPIC B: BONE MARROW, BIOPSY RPIC C: BONE MARROW, CLOT RPIC ADDITIONAL PROCEDURE(S) CYTOGENETICS Date Ordered: 08/31/2017 Date Reported: 09/10/2017 Procedure Results and Interpretation (NOTE) Performing Pathologist: José Collins M.D. Lab Analysis No: [id number] Doctor/Pathologist: [facility] Path[facility] No: [id number] Clinical diagnosis: Thrombocytopenia Specimen Type: Bone Marrow Number of cells counted: 20 Number of cells analyzed: 20 Number of cells karyotyped: 2 Banding resolution: 400 Banding method: G-banding DIAGNOSIS: 46,XX[20] INTERPRETATION: normal, female karyotype COMMENT: Ten metaphase cells were analyzed from the culture supplemented with GM-CSF and ten metaphase cells were analyzed from the 24 hour unstimulated culture. Twenty of 20 cells analyzed showed a 46,XX karyotype. There was no significant numerical chromosome abnormality and no structural change detected within the limits of resolution. Pathologist Interpretation: José Collins MD There is no change in diagnosis. Arnoldo Rawls MD Performed by [facility] [place] Division of Molecular Pathology Cytogenetics Lab, [place] [id number] [place] [address] Toll free: Procedure Pathologist: Arnoldo Rawls M.D. Electronic Signature FLOW CYTOMETRY - BONE MARROW LOW GRADE LEUK MARKERS Date Ordered: 09/02/2017 Date Reported: 09/02/2017 Procedure Results and Interpretation Specimen type: Bone Marrow Viability: 98% Morphology comments: see [id number] Results: Marker Normal Cell Result(Lymphocytes) Type CD2 T/NK cells Normal pattern CD3 T-cells Normal pattern CD4 T-cell subset Normal pattern CD5 T-cells Normal pattern CD7 T/NK-cells Normal pattern CD8 T-cell subset Normal pattern CD10 B-cell subset Normal pattern CD13 Myeloid Normal pattern CD16/56 T/NK cell Normal pattern CD19 B-cell Normal pattern CD20 B-cell Normal pattern CD23 B-cell subset Normal pattern CD45 Mejia-leukocyte Normal pattern CD79b B-cell Normal pattern CD123 Dendritic Normal pattern FMC7 B-cells Normal pattern kappa/lambda B-cells Polytypic Interpretation: Flow cytometric analysis of the peripheral blood reveals that 17% of total events have the CD45 and side scatter properties of lymphocytes. The lymphocytes are composed of a mixture of heterogenous T-cells (71%; CD4:CD8 ratio = 0.60), NK cells (6%) and polytypic B-cells (23%). Final Impression: There is no immunophenotypic evidence of involvement by a lymphoproliferative disorder. Correlation with the clinical and bone marrow histopathologic findings is suggested. ANALYTE SPECIFIC REAGENT (ASR) DISCLAIMER This test was developed and its performance characteristics determined by [facility] [place] ([facility]). It has not been cleared or approved by the FDA. [facility] is regulated under CLIA as qualified to perform high-complexity testing. This test is used for clinical purposes. It should not be regarded as investigational or for research. Procedure Pathologist: Arnoldo Ralws M.D. Electronic Signature CLINICAL DATA THROMBOCYTOPENIA, SPLENOMEGALY. GROSS DESCRIPTION A. Received are air-dried bone marrow aspirate smears. Submitted for light microscopy. B. Received in formalin is one segment of cylindrical tissue measuring 1.5 x 0.2 x 0.2 cm, brown and of a firm consistency. Totally submitted in formalin in one cassette after decalcification. C. Received in formalin are multiple red-brown, soft segments of hemorrhagic material measuring 2.1 x 1.8 x 0.9 cm. Totally submitted in one cassette. Gross examination performed at [facility], [address] [place] [address] 08/31/2017 11:31:01 PM Date of Report: 09/02/2017 Date of Procedure: 08/31/2017 Date of Receipt: 08/31/2017 Submitted by: AUSTIN RODGERS M.D. ([id number]) Location: W010 Diagnostic interpretation performed at [facility], [address] [place] [address]. CHROMOSOME BM Collected: 08/31/2017 Status: F Source: [place] 12:20 PM [facility] REPOSITORY TYPE CODE TESTS RESULT OUT OF REFERENCE UNITS RANGE LAB CRBM Chromosome (NOTE) Analysis Result Comment: Performing Pathologist: José Collins M.D. Lab Analysis No: [id number] Doctor/Pathologist: Vishal/Curly Surgical Pathology No: [id number] Clinical diagnosis: Thrombocytopenia Specimen Type: Bone Marrow Number of cells counted: 20 Number of cells analyzed: 20 Number of cells karyotyped: 2 Banding resolution: 400 Banding method: G-banding DIAGNOSIS: 46,XX[20] INTERPRETATION: normal, female karyotype COMMENT: Ten metaphase cells were analyzed from the culture supplemented with GM-CSF and ten metaphase cells were analyzed from the 24 hour unstimulated culture. Twenty of 20 cells analyzed showed a 46,XX karyotype. There was no significant numerical chromosome abnormality and no structural change detected within the limits of resolution. Pathologist Interpretation: José Collins MD Performed by [facility] [place] Division of Molecular Pathology Cytogenetics Lab, [address] [place] [address] Toll free: Performed By: #### [facility] #### [place] [address] ALLERGIES ALLERGIES DATE TYPE / NAME / CODE REACTION SEVERITY SOURCE CODE 03/20/2018 Drug Penicillins/L77226 Rash Unknown [place] Allergy/41 0476(RXNORM) [facility] [id number]([facility]) Repository 03/20/2018 Drug Sulfa (Sulfonamide Rash Unknown [place] Allergy/41 Antibiotics)/F0010 [facility] [id number]( [address](RXNORM) [facility]) Repository 03/20/2018 Drug iodine/[id number]( Rash Unknown [place] Allergy/41 RXNORM) [facility] 1242895([facility]) Repository 03/20/2018 Drug erythromycin Rash Unknown [place]crete Allergy/41 base/L400279715(RX Community 5289277(SN NORM) Hospital OMED [facility]) Repository 01/07/2009 DRUG/68961 ERYTHROMYCIN INTOLERANCE [facility] 1003(SNOME [place] [address]) Repository 06/26/2007 [facility] [place] 8345181(SN Repository OMED CT) 12/05/2006 DRUG IODINE SWELLING [facility] [place] 8386435(SN Repository OMED CT) 12/05/2006 Drug PENICILLINS RASH [facility] Class/4195 [place] [address](SNOM Repository ED CT) 12/05/2006 Drug SULFA (SULFONAMIDE INTOLERANCE [facility] Class/4195 ANTIBIOTICS) [place] [address](SNOM Repository ED CT) ENCOUNTERS ENCOUNTERS ADMIT/DISCHARGE ACCOUNT NUMBER ADMITTING ENCOUNTER LOCATION SOURCE CLASS 08/08/2018 [id number] Ambulatory Building:[facility] [place] Practices Repository 07/17/2018/07/17/[id number] ding:SDCRoom Repository : AC16 07/14/2018 [id number] [facility] ding:MTLAB Repository 07/04/2018 [id number] Ambulatory [facility] ding:CT Repository 04/19/2018 [id number] [facility] ding:MTLAB Repository 03/20/2018/03/20/20 [id number] Ambulatory [address] ding:SDC Repository 03/14/2018/03/15/20 [id number] Ambulatory [address] [place] Repository 03/14/2018/03/17/20 [id number] Ambulatory [address] [place] Repository 03/14/2018/03/14/20 [id number] Ambulatory [address] [place] Repository 02/10/2018/02/11/20 [id number] Ambulatory [address] ding:MINR [facility] Repository 02/06/2018 [id number] [facility] ding:MTLAB Repository 01/05/2018 [id number] [facility] ding:DC Repository 10/31/2017 [id number] [facility] ng:H. 10/17/2017/10/18/[id number] ding:SD Repository 09/13/2017/09/14/19 [id number] Ambulatory [address] Repository 09/13/2017/09/14/19 [id number] Ambulatory [address] Repository 09/06/2017/09/06/19 [id number] Ambulatory [address] Repository 08/31/2017 [id number] Ambulatory [facility] Repository 08/31/2017/08/31/19 [id number] AUSTIN RODGERS Ambulatory [address] Repository 08/24/2017/08/31/[id number] ding:DC Repository FUNCTIONAL STATUS FUNCTIONAL STATUS No Functional Status Records FoundEQUIPMENT EQUIPMENT No Equipment Records FoundPAYERS PAYERS ENCOUNTER GUARANTOR PAYER SUBSCRIBER SOURCE 08/08/2018 [place] E Primary [place] E OHIP Practices ListerDOB: Insurance:MedicarePol ListerDOB: Repository [id number] Box icy Number: [id number] [address] [address] [address]Kbo: Date:5541-68-56Yztt [place], [place] Name:PACKAGING TECHNICIAN [address] [address]Vcw: [phone]) (LY) 006[address]Pvvnhrhq, [place] [phone] () [address]WP: 08/08/2018 Secondary [place] E OHIP Practices Insurance:AARP/UHCPol ListerDOB: Repository icy Number: [id number] [address] Date:7849-24-89Fdto [place], [place] Name:FPO [address] [address]Ikh: [id number], [place] ~(3 [phone]: [phone] 08/08/2018 Tertiary Rashid OHIP Practices Insurance:Medical ListerDOB: Repository [facility] [id number] Number: [address] [id number] [place], [place] Date: - [address]Lds: [phone] [id number] [phone] () Name:[facility] Thomas [address], [place] [id number]: 07/17/2018 ELIZABETH [place] Primary [place] [id number] Insurance:MEDICARE LISTERDOB: Community [address] [facility] [id number] Number: Repository [address]Xqd: [phone] [id number] [phone] () Date:2018-07-07 07/17/2018 Secondary [place] E [place] Insurance:AARPPolicy LISTERDOB: Community Number: [id number] Hospital [id number] Repository Date:7407-84-07SA[address] [address]IJ: 07/17/2018 Tertiary NOT GIVENUNK [place] Insurance:SELF PAY [facility], [place]) Number: Effective Repository Date:2018-07-07 07/14/2018 ELIZABETH Spears [id number] Insurance:MEDICARE LISTERDOB: Community [address] [facility] [id number], [place] Number: Repository [address]Rvf: 419 [id number] [phone] () Date:2018-07-14 07/14/2018 Secondary [place] E [place] Insurance:AARPPolicy LISTERDOB: Community Number: [id number] Hospital [id number] Repository Date:1890-91-65UR[address] [address]AP: 07/14/2018 Tertiary NOT GIVENUNK [place] Insurance:[facility]LF [facility]Y [facility] Hospital Number: Effective Repository Date:2018-07-14 07/04/2018 ELIZABETH Spears [id number] Insurance:MEDICARE LISTERDOB: Community [address] [facility] [id number], [place] Number: Repository [address]Hnw: 419 [id number] [phone] () Date:2018-06-26 07/04/2018 Secondary [place] E [place] Insurance:AARPPolicy LISTERDOB: Community Number: [id number] Hospital [id number] Repository Date:2173-96-18RV[address] [address]MP: 07/04/2018 Tertiary NOT GIVENUNK [place] Insurance:SELF PAY [facility] Effective Repository Date:2018-06-26 04/19/2018 ELIZABETH [place] Primary [place] E [place] [id number] Insurance:MEDICARE LISTERDOB: Community [address] [facility] [id number] [place] Number: Repository [address]Igq: 419 [id number] [phone] () Date:2018-04-19 04/19/2018 Secondary [place] E [place] Insurance:AARPPolicy LISTERDOB: Community Number: [id number] Hospital [id number] Repository Date:4553-62-69PG[address] [address]TY: 04/19/2018 Tertiary NOT GIVENUNK [place] Insurance:SELF PAY [facility] Hospital Number: Effective Repository Date:2018-04-19 03/20/2018 ELIZABETH [place] Primary [place] E [place] [id number] Insurance:MEDICARE LISTERDOB: Community [address] [facility] [id number] [facility] [place] Number: Repository [address]Igt: 419 [id number] [phone] () Date:2018-03-13 03/20/2018 Secondary [place] E [place] Insurance:AARPPolicy LISTERDOB: Community Number: [id number] Hospital [id number] Repository Date:5484-00-52[address]LRUZFEV, [place] [address]SD: 03/20/2018 Tertiary NOT GIVENUNK [place] Insurance:SELF PAY [facility] Number: Effective Repository Date:2018-03-13 02/10/2018 FRANCE E Primary FRANCE E [facility] LISTERDOB: Insurance:MEDICARE LISTERDOB: Foundation [id number] BOX PART BPolicy Number: [id number] Repository [address] [place], [id number] [address] [place] [address]Ojb: Date:2018-02-06 [place], [place] [id number] [address]Ayu: ([phone]) () Name:[facility] [id number] [facility] LL[facility] ()Tel: (000) [address] [address]Efkaxcatj, 000-0000 (WP) [place] [address]KQ: 02/10/2018 Secondary [place] E [facility] Insurance:AARP WOODWARD LISTERDOB: [facility] [facility] [id number] Repository ONLYPolicy Number: [address] [id number] [place], [place] Date:2018-02-06 24216Rwe: [phone] [id number] [phone] Name:PACKAGING TECHNICIAN Box (HP)Tel: [phone], [place] [phone] () [address]TE: 02/06/2018 ELIZABETH Harrison Primary FRANCE E [employer] [id number] Insurance:MEDICARE LISTERDOB: [facility] [address] [facility] [id number] Number: Repository [id number]: [phone] [id number] [phone] () Date:2018-02-06 02/06/2018 Secondary FRANCE E [employer] Insurance:AARPPolicy LISTERDOB: [facility] Number: [id number] [facility] [id number] Repository Date:[id number], [place] [address]OD: 02/06/2018 Tertiary NOT GIVENUNK [place] Insurance:SELF PAY Community INSURANCEPolicy Hospital Number: Effective Repository Date:2018-02-06 01/05/2018 ELIZABETH Harrison Primary FRANCE E [employer] [id number] Insurance:MEDICARE LISTERDOB: Community [address] [facility] [id number] [facility] [place] Number: Repository [id number]: [phone] [id number] [phone] (HP) Date:2011-09-30 01/05/2018 Secondary FRANCE E [employer] Insurance:AARPPolicy LISTERDOB: Community Number: [id number] Hospital [id number] Repository Date:[id number] [address], [place] [address]PT: 01/05/2018 Tertiary NOT GIVENUNK Concrete Insurance:SELF PAY [facility] ([place], [place]) Number: Effective Repository Date:2017-09-01 10/31/2017 FRANCE E Primary FRANCE E [facility] BOX Insurance:MEDICARE[address] Number: Repository [place] [id number]: [id number] Date:2011-09-30[facility] () [facility] [id number] CODE [place]CFARG[place] [address]YC: 10/31/2017 Secondary FRANCE E [facility] Insurance:AARP-2ND TO LISTERUNK [facility] [place] MEDICAREPolicy Repository Number: [id number] Date:[id number], [place] [address]QG: 10/17/2017 ELIZABETH Harrison Primary FRANCE E [place] [id number] Insurance:MEDICARE LISTERDOB: Community [address] [facility] [id number] [place] Number: Repository [id number]: [phone] [id number] [phone] (HP) Date:2017-10-11 10/17/2017 Secondary FRANCE E [employer] Insurance:AARPPolicy LISTERDOB: Community Number: [id number] [id number] Repository Date:0972-88-11[address], [place] [address]GQ: 10/17/2017 Tertiary NOT GIVENUNK [employer] Insurance:SELF PAY [facility] ([place], [place]) Number: Effective Repository Date:2017-10-11 08/24/2017 Elizabeth Harrison Primary FRANCE Nash Spears [id number] Insurance:MEDICARE LISTERDOB: [facility] [address] [facility] [id number] Number: Repository [id number]: [id number] Date:2011-09-30 () 08/24/2017 Secondary FRANCE E [place] Insurance:AARPPolicy LISTERDOB: [facility] Number: [id number] Hospital [id number] Repository Date:1499-88-80[address], [place] [address]KB: 08/24/2017 Tertiary NOT GIVENUNK Concrete Insurance:SELF PAY [facility] ([place], [place]) Number: Effective Repository Date:2017-08-01 SOCIAL HISTORY SOCIAL HISTORY No Social History Records FoundFAMILY HISTORY FAMILY HISTORY No Family History Records FoundADVANCE DIRECTIVES ADVANCE DIRECTIVES No Advanced Directives Records FoundINFORMATION SOURCE INFORMATION SOURCE DATE CREATED AUTHOR AUTHOR'S ORGANIZATION 08/23/2018 [facility]
== END ==
PROVIDERS: Family Provider Nurse Practitioner; PCP Nurse Practitioner; Referring Provider Internal Medicine Gastroenterology; Visit Provider Internal Medicine Gastroenterology
DX: D50.9 Iron deficiency anemia, unspecified (principal); K74.60 Unspecified cirrhosis of liver
CPT/HCPCS: 36415; 80053; 82105; 82728; 83540; 85027; 85610; 85730

== ENCOUNTER 2018-07-17 07:38 | Day surgery (SDC) | payer MEDICARE, OTHER, SELFPAY ==
[2018-07-04 12:48] VITALS: BMI 75.2
[2018-07-17 08:06] VITALS: BP 119/48; PULSE 72; RESP 16; TEMP 36.8; O2SAT 97; BMI 57.0
[2018-07-17 08:35] LABS: Bedside Glucose 101 mg/dL (70-110)
[2018-07-17 09:30] VITALS: BP 104/60; BP 119/48; PULSE 70; RESP 16; TEMP 36.6; O2SAT 94
--- NOTE | 2018-07-17 09:30 | RAD_ITS ---
PROCEDURE: Right L3 S1 facet joint block. DATE OF EXAMINATION: July 17, 2018. INDICATION: Female, 72 years old. Chronic low back pain. FLUOROSCOPY TIME (if supplied): (0:20) minutes/seconds. 4 coned down intraoperative views were obtained. Intraoperative imaging was provided for right L3 S1 facet joint block. RAD/L/S Spine Min 4 Views IMPRESSION: Intraoperative imaging was provided for right L3 S1 facet joint block. Electronically Signed: Toñito Castellanos MD at 9:42 EST Tel [phone], Service support ,
[2018-07-17 09:35] VITALS: BP 111/56; BP 119/48; PULSE 69; RESP 16; O2SAT 94
[2018-07-17 09:40] VITALS: BP 119/48; BP 96/45; PULSE 68; RESP 18; O2SAT 95
[2018-07-17 09:45] VITALS: BP 119/48; BP 98/47; PULSE 67; RESP 18; TEMP 36.4; O2SAT 94
--- NOTE | 2018-07-17 09:55 | OP.PCM_ITS ---
Problem List (1) Degeneration of intervertebral disc of lumbosacral region Status: Chronic (2) Lumbar facet arthropathy Status: Chronic (3) Lumbosacral spondylosis Status: Chronic Report of Operation Date of Procedure: 07/17/18 Pre-Operative Diagnosis: Lumbosacral spondylosis, lumbosacral degenerative disc disease, lumbar facet arthropathy Post-Operative Diagnosis: Lumbosacral spondylosis, lumbosacral degenerative disc disease, lumbar facet arthropathy Surgery/Procedure Performed:: Right-sided lumbar facet steroid injection L3, L4, L5, S1 Description of Surgical Findings:: PROCEDURE: Right-sided lumbar facet steroid injection L3, L4, L5, S1 PREOPERATIVE DIAGNOSIS: Lumbosacral spondylosis, lumbosacral degenerative disc disease, and lumbar facet arthropathy POSTOPERATIVE DIAGNOSIS: Lumbosacral spondylosis, lumbosacral degenerative disc disease, and lumbar facet arthropathy ANESTHESIA: MAC COMPLICATIONS: None BLOOD LOSS: Minimal PROCEDURE IN DETAIL: History and physical today was reviewed. Risks and benefits of the procedure were explained. The patient understood, agreed to our procedure, and informed consent was obtained. IV inserted per routine protocol. The patient was taken to the operating room, placed in a prone position with a pillow positioned underneath the abdomen. The right side of the lower back was prepped and draped in a sterile fashion using iodine x3. Under fluoroscopy guidance, on AP view, L3 through S1 vertebral bodies were visualized. Skin and subcutaneous tissues were anesthetized with approximately 5 mL of 1% lidocaine using a 25-gauge regular needle. Under direct visualization with fluoroscopy at approximately 25-degree angle, starting on the right L3, ending on the right S1, passing through the L4-L5 using a 22-gauge 5-inch spinal needle, the needle was advanced via the skin. The tip of the needle was maneuvered and directed towards the superior and medial gutter of the transverse process at the vicinity of the medial branch. Once the tip of the needle was in contact with the bone, the needle pulled approximately 2 mm off the bone. After negative aspiration of blood with CSF and confirmation of AP as well as oblique view, a total of 8 mL of preservative-free 0.25% Marcaine with 80 mg of Depo- Medrol was injection in divided doses between those 4 levels. The needles were then removed intact. The patient experienced no signs or symptoms intrathecal, intravascular injection. The patient experienced no paraesthesia. The procedure was completed without any apparent difficult, any complication. The patient appeared to tolerate well. ASSESSMENT AND PLAN: This is a 72-year-old Female with Lumbosacral spondylosis, lumbosacral degener ative disc disease, and lumbar facet arthropathy, status post right-sided lumbar facet steroid injection L3 through S1. The patient will continue her current medications. The patient will follow in approximately 2 weeks for possible repeat of the procedure if indicated.
[2018-07-17 10:13] VITALS: BP 119/48
--- OUTSIDE RECORDS SUMMARY | 2018-10-18 17:12 | XMS RPT_ITS ---
:1945 Author Organization OHIP Support Name Relationship Address Phone ELIZABETH NAM [address] + [address] [place] [address] R Unknown Unavailable Unavailable ELIZABETH NAM [address] + [address] [place] [address] R Unknown Unavailable Unavailable ELIZABETH NAM [address] + [address] [place] [address] R Unknown Unavailable Unavailable ELIZABETH NAM [address] + [address] [place] [address] R Unknown Unavailable Unavailable ELIZABETH NAM [address] + [address] [place] [address] R Unknown Unavailable Unavailable ELIZABETH NAM Unknown [address] + [place] [address] ELIZABETH NAM Unknown [address] + [place] [address] ELIZABTEH NAM [address] + [address] [place] [address] R Unknown Unavailable Unavailable ELIZABETH NAM [address] + [address] [place] [address] R Unknown Unavailable Unavailable ELIZABETH NAM [address] + [address] [place] [address] R Unknown Unavailable Unavailable ELIZABETH NAM [address] + [address] [place] [address] R Unknown Unavailable Unavailable Care Team Providers Name Role Phone Eileen Kat CORRECTIONAL SUBSTANCE ABUSE COUNSELOR-C Attending Unavailable Eileen Kat CORRECTIONAL SUBSTANCE ABUSE COUNSELOR-C Referring Unavailable Radha Sebastian Primary Care Unavailable Yuri Walsh Attending Unavailable Yuri Walsh Referring Unavailable Radha Sebastian Primary Care Unavailable Sohail Ellison Attending Unavailable Sohail Ellison Referring Unavailable Ciesa, Radha Primary Care Unavailable Prebish, Eileen CORRECTIONAL SUBSTANCE ABUSE COUNSELOR-C Attending Unavailable Prebish, Eileen CORRECTIONAL SUBSTANCE ABUSE COUNSELOR-C Referring Unavailable Fabyesa, Radha Primary Care Unavailable [...] MASCI, AUSTIN A Referring Unavailable MARIELA NGUYEN (COAGULANT DIPPER) Attending Unavailable MASCI, AUSTIN A Referring Unavailable KEILABOUR , DR. 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 anemia, [facility] unspecified / Hospital D50.9(ICD-10) Repository 04/19/2018 Unknown E11.9 - Type 2 Vellanki, Active [facility] diabetes mellitus [facility] without Hospital complications / Repository E11.9(ICD-10) 04/19/2018 Unknown M06.4 - Inflammatory Vellanki, 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 / [facility] M06.4(ICD-10) Hospital Repository 04/19/2018 Unknown M79.7 - Fibromyalgia Vellanki, Active [facility] / M79.7(ICD-10) [facility] Hospital Repository 04/19/2018 Unknown M51.37 - Other Vellanki, Active [facility] intervertebral disc [facility] degeneration, Hospital lumbosacral region / Repository M51.37(ICD-10) 04/19/2018 Unknown M21.40 - Flat foot Andrew, Active [facility] [pes planus] [facility] (acquired), Hospital unspecified foot / Repository M21.40(ICD-10) 04/19/2018 Unknown K21.9 - Vellanki, Active [facility] Gastro-esophageal [facility] reflux disease Hospital without esophagitis Repository / K21.9(ICD-10) 04/19/2018 Unknown I10 - Essential Vellanki, Active [facility] (primary) [facility] hypertension / Hospital I10(ICD-10) Repository 04/19/2018 Unknown F41.9 - Anxiety Vellanedenilson, Active [facility] disorder, [facility] unspecified / Hospital F41.9(ICD-10) Repository 04/19/2018 Unknown N39.46 - Mixed Vellanedenilson, Active [facility] incontinence / [facility] N39.46(ICD-10) Hospital Repository 04/19/2018 Unknown Z85.3 - Personal Velsilvestre, Active [facility] history of malignant [facility] neoplasm of breast / Hospital Z85.3(ICD-10) Repository 02/06/2018 Unknown D64.9 - Anemia, Jabour, Active [facility] unspecified / [facility] D64.9(ICD-10) Hospital Repository 02/06/2018 Unknown K74.60 - Unspecified Jabour, Active [facility] cirrhosis of liver / [facility] K74.60(ICD-10) Hospital Repository 10/31/2017 Admitting Unknown / Jabour, Active [facility] Medical diagnosis UNK(Unknown) [facility] Repository 08/19/2017 Active Splenomegaly, not NA Active [place] elsewhere classified [facility] Main / R16.1(ICD-10) [place] Repository 07/21/2017 Active Thrombocytopenia, NA Active [place] unspecified / Clinic Main D69.6(ICD-10) [facility] Repository 08/31/2017 Active Personal history of AUSTIN RODGERS Active [place] malignant neoplasm [facility] Main of breast / [place] Z85.3(ICD-10) Repository PROCEDURES PROCEDURES No Procedure Records FoundVITAL SIGNS VITAL SIGNS No Vital Signs Records FoundRESULTS RESULTS OPERATIVE REPORT Observed: 07/17/2018 Status: F Source: [place] 9:55 AM [facility] [place] [facility] Medical Records Department [address] [place] [address] Operative Report 07/17/18 0952 MR#: [id number] Acct: [id number] Name: FRANCE NAM Rep #: [id number] : 1945 72 From: Yuri Walsh MD PCP: Radha Sebastian NP Status: REG SDC Y Location: [place] [address] Problem List (1) Degeneration of intervertebral disc [...] BEDSIDE GLUCOSE Collected: 07/17/2018 Status: F Source: [place] 8:10 AM [facility] [place] TYPE CODE TESTS RESULT OUT OF RANGE REFERENCE UNITS LAB L501.080 70-110 mg/dL Normal BEDSIDE GLU 101 Result Comment: MANAGEMENT OF PATIENT CARE PER NURSING PROTOCOL Performed By: #### L501.080 #### [facility] Point of Care [address] [place] [address] L/S SPINE MIN 4 Observed: 07/17/2018 Status: F Source: [place] VIEWS 3:39 AM [facility] [place] [facility] Imaging Services [address] [place] [address] L/S Spine Min 4 Views MR#: [id number] Acct: [id number] Name: FRANCE NAM Rep #: [id number] : 1945 F 72 From: Toñito Castellanos MD PCP: Radha Sebastian NP Status: [facility] Study: L/S Spine Min 4 Views Date of Exam: 07/17/18 Exam# [id number] Ordering Dr: Yuri Walsh MD PROCEDURE: Right [...] Toñito Castellanos MD at 9:42 EST Tel [phone], Service support , CC: Radha Sebastian CORRECTIONAL SUBSTANCE ABUSE COUNSELOR; Yuri Walsh Assembler Body: Signed CBC-COMPLETE BLOOD CNT Collected: 07/14/2018 Status: F Source: [place] NO DIFF 2:54 PM [facility] [place] TYPE CODE TESTS RESULT OUT OF [...] MPV 9.1 Performed By: #### L100.0500 #### [facility] [address] [place], [address] COMPREHENSIVE METABOLIC Collected: 07/14/2018 Status: F Source: [place] DOUGLASS 2:54 PM [facility] [place] TYPE CODE TESTS RESULT OUT OF [...] GAP 8 Performed By: #### L500.4050, L503.6150, L503.6565 #### [facility] [address] [place], [address] IRON Collected: 07/14/2018 Status: F Source: [place] 2:54 PM [facility] [place] TYPE CODE TESTS RESULT OUT OF RANGE REFERENCE UNITS LAB L503.6150 50-170 ug/dL Normal IRON 98 Performed By: #### L500.4050, L503.6150, L503.6550 #### [facility] [address] [place], [address] FERRITIN Collected: 07/14/2018 Status: F Source: [place] 2:54 PM [facility] [place] TYPE CODE TESTS RESULT OUT OF RANGE REFERENCE UNITS LAB L503.6550 8-252 ng/mL Normal FERRITIN 45 Performed By: #### L500.4050, L503.6150, L503.6550 #### [facility] [address] [place], [address] PROTHROMBIN TIME W/INR Collected: 07/14/2018 Status: F Source: [place] 2:54 PM [facility] [place] TYPE CODE TESTS RESULT OUT OF RANGE REFERENCE UNITS LAB L300.4150 11.7-14.9 SECONDS Normal PROTIME 14.2 LAB L300.4200 Normal INR 1.1 Performed By: #### L300.3900, L300.4310 #### [facility] [address] [place], [address] PARTIAL THROMBOPLAST Collected: 07/14/2018 Status: F Source: [place] TIME 2:54 PM [facility] [place] TYPE CODE TESTS RESULT OUT OF RANGE REFERENCE UNITS LAB L300.4310 24.1-36.2 Seconds Normal PTT 30.4 Performed By: #### L300.3900, L300.4310 #### [facility] [address] [place], [address] AFP, TUMOR MARKER Collected: 07/14/2018 Status: F Source: [place] 2:54 PM [facility] [place] Order Comment: Is Patient ? N TYPE CODE TESTS RESULT OUT OF RANGE REFERENCE UNITS LAB L3300.0700 0.0-8.3 ng/mL Normal AFP TUMOR 4.1 2253 Result Comment: Rikki ECLIA methodology Performed at: [facility] [address] [id number] Cold Strip Roller: Sohail Palafox PhD, Phone: [phone] Performed By: #### L3300.0700 #### [facility] (refer to report for specific site) refer to report for address and phone number CREATININE FINGERSTICK Collected: 07/04/2018 Status: F Source: [place] 12:52 PM [facility] [place] TYPE CODE TESTS RESULT OUT OF REFERENCE UNITS RANGE LAB L9100.0210 0.55-1.02 mg/dL High CREATININE WB 1.2 LAB L9100.0220 >60 mL/min Low EGFR WB 45.0000 Performed By: #### L9100.0200 #### [facility] Point of Care [address] [place] [address] ABDOMEN W/WO IV Observed: 07/04/2018 Status: F Source: [place] CONTRAST 12:12 PM [facility] [place] [facility] Imaging Services [address] [place] [address] Abdomen W/WO IV Contrast MR#: [id number] Acct: [id number] Name: FRANCE NAM Rep #: [id number] : 1945 F 72 From: Toñito Castellanos MD PCP: Radha Sebastian NP Status: REG CLI Study: Abdomen W/WO IV Contrast Date of Exam: 07/04/18 Exam# [id number] Ordering Dr: Sohail Ellison MD STUDY: CT [...] Toñito Castellanos MD at 10:39 EST Tel [phone], Service support , CC: Radha Sebastian NP; Sohail Ellison Assembler Body: Signed PELVIS 1 OR 2 VIEWS Observed: 04/19/2018 Status: F Source: [place] 3:40 PM [facility] [place] [facility] Imaging Services [address] [place] [address] Pelvis 1 or 2 Views MR#: [id number] Acct: [id number] Name: FRANCE NAM Rep #: [id number] : 1945 F 72 From: David Gonzalez MD PCP: Radha Sebastian NP Status: REG CLI Study: Pelvis 1 or 2 Views Date of Exam: 04/19/18 Exam# [id number] Ordering Dr: Annie Morales MD STUDY: X-RAY [...] CC: Radha Sebastian NP; Annie Morales MD Assembler Body: Signed CBC W/DIFF, AUTOMATED Collected: 04/19/2018 Status: F Source: [place] 3:38 PM [facility] [place] TYPE CODE TESTS RESULT OUT OF [...] 1.12 Performed By: #### L100.0100, L101.9900 #### [facility] [address] [facility] [id number] ERYTHROCYTE SED RATE Collected: 04/19/2018 Status: F Source: [place] 3:38 PM [facility] [place] TYPE CODE TESTS RESULT OUT OF RANGE REFERENCE UNITS LAB L102.0000 0-30 mm/hr High SED RATE 46 Performed By: #### L100.0100, L101.9900 #### [facility] [address] [facility] [address] COMPREHENSIVE METABOLIC Collected: 04/19/2018 Status: F Source: [facility] 3:38 PM [facility] [place] TYPE CODE TESTS RESULT OUT OF [...] Performed By: #### L500.4050, L501.6710, L505.7010 #### [facility] [address] [place], [place], [address] CRP Collected: 04/19/2018 Status: F Source: [place] 3:38 PM [facility] [place] TYPE CODE TESTS RESULT OUT OF RANGE REFERENCE UNITS LAB L501.6710 0.0-3.0 mg/L High 3.33 C-REACTIVE PROT Result Comment: C-Reactive Protein (CRP) provides useful information for the diagnosis, therapy and monitoring of inflammatory processes and associated diseases. For the evaluation of Relative Risk for Cardiovascular Disease, a High Sensitivity CRP (HSCRP) should be ordered. Performed By: #### L500.4050, L501.6710, L505.7010 #### [facility] [address] [facility] [address] [place], [place], [address] RHEUMATOID FACTOR Collected: 04/19/2018 Status: F Source: [place] 3:38 PM [facility] [place] TYPE CODE TESTS RESULT OUT OF RANGE REFERENCE UNITS LAB L505.7010 <15 IU/mL Normal RHEUMATOID FAC < 10.0 Performed By: #### L500.4050, L501.6710, L505.7010 #### [facility] [address] [facility] [address] [place], [place], [address] ANTINUCLEAR ANTIBODIES Collected: 04/19/2018 Status: F Source: [place] DIRECT 3:38 PM [facility] [place] TYPE CODE TESTS RESULT OUT OF RANGE REFERENCE UNITS LAB L3100.5475 Negative Normal Negative TYE-DIRECT Result Comment: Performed at: [facility] [address] [id number] Cold Strip Roller: Sohail Palafox PhD, Phone: [phone] Performed By: #### L3100.5475, L3100.9100 #### [facility] (refer to report for specific site) refer to report for address and phone number SJOGREN'S ANTIBODIES Collected: 04/19/2018 Status: F Source: [place] A/B 3:38 PM [facility] [place] TYPE CODE TESTS RESULT OUT OF RANGE REFERENCE UNITS LAB L3100.9200 0.0-0.9 AI Normal Anti-SS-A < 0.2 LAB L3100.9300 0.0-0.9 AI Normal Anti-SS-B < 0.2 Performed By: #### L3100.5475, L3100.9100 #### [facility] (refer to report for specific site) refer to report for address and phone number HEPATITIS B SURFACE Collected: 04/19/2018 Status: F Source: [place] AG 3:38 PM [facility] [place] TYPE CODE TESTS RESULT OUT OF RANGE REFERENCE UNITS LAB L3100.0400 Negative Normal HB Negative SURF AG Result Comment: Performed at: [facility] [address] [id number] Cold Strip Roller: Sohail Palafox PhD, Phone: [phone] Performed at: [facility] [address] [id number] Cold Strip Roller: Noe Fitzgerald PhD, Phone: [phone] Performed at: [facility] [address] [id number] Cold Strip Roller: Juanpablo Zamora MD, Phone: [phone] Performed By: #### L3100.0390, L3100.0528, L3100.0625, L3410.1400, L4600.0100 #### [facility] (refer to report for specific site) refer to report for address and phone number HEP B SURFACE Collected: 04/19/2018 Status: F Source: [place] ANTIBODIES 3:38 PM [facility] [place] TYPE CODE TESTS RESULT OUT OF [...] 04/19/2018 Status: F Source: [place] 3:38 PM [facility] [place] TYPE CODE TESTS RESULT OUT OF RANGE REFERENCE UNITS LAB L3100.0650 0.0-0.9 s/co ratio Normal HEP C AB <0.1 Result Comment: Negative: < 0.8 Indeterminate: 0.8 - 0.9 Positive: > 0.9 The CDC recommends that a positive HCV antibody result be followed up with a HCV Nucleic Acid Amplification test (646546). Performed By: #### L3100.0390, L3100.0528, L3100.0625, L3410.1400, L4600.0100 #### [facility] (refer to report for specific site) refer to report for address and phone number HLA B27 Collected: 04/19/2018 Status: F Source: [place] 3:38 PM [facility] [place] TYPE CODE TESTS RESULT OUT OF RANGE REFERENCE UNITS LAB L3410.1500 . Normal HLA Negative B27 Result Comment: HLA-B*27 Negative B27 allele interpretation for all loci based on IMGT/HLA database version 3.27 This test was developed and its performance characteristics determined by [facility]. It has not been cleared or approved by the Food and Drug Administration. [facility] Lab CLIA ID Number [id number] This test was performed using PCR (Polymerase [...] IGG ANTIBODIES Collected: 04/19/2018 Status: F Source: [place] 3:38 PM [facility] [place] TYPE CODE TESTS RESULT OUT OF RANGE REFERENCE UNITS LAB L4600.0100 0-19 units Normal ANTI-CCP 11 170676 Result Comment: Negative <20 Weak positive 20 - 39 Moderate positive 40 - 59 Strong positive >59 Performed By: #### L3100.0390, L3100.0528, L3100.0625, L3410.1400, L4600.0100 #### [facility] (refer to report for specific site) refer to report for address and phone number OPERATIVE REPORT Observed: 03/20/2018 Status: F Source: [place] 11:29 AM [facility] [place] [facility] Medical Records Department [address] [place] [address] Operative Report 03/20/18 1126 MR#: [id number] Acct: [id number] Name: FRANCE NAM Nash Rep #: [id number] : 1945 72 From: Yuri Walsh MD PCP: Radha Sebastian NP Status: [facility] Y Location: [facility] Problem List (1) Degeneration of intervertebral disc [...] status post left-sided lumbar facet steroid injection I8pcalesf S1. The patient will continue his current medications. The patient will follow in approximately 2 weeks for possible repeat of the procedure if indicated. 03/20/18 1129 <Electronically signed by Yuri Walsh MD> Date Yuri Walsh MD CC: Radha Sebastian NP; Yuri Walsh Signed BEDSIDE GLUCOSE Collected: 03/20/2018 Status: F Source: [place] 9:07 AM [facility] [place] TYPE CODE TESTS RESULT OUT OF RANGE REFERENCE UNITS LAB L501.080 70-110 mg/dL Normal BEDSIDE GLU 92 Result Comment: MANAGEMENT OF PATIENT CARE PER NURSING PROTOCOL Performed By: #### L501.080 #### [facility] Point of Care [address] [place] [address] LUMBAR SPINE 2 OR 3 Observed: 03/19/2018 Status: F Source: [place] VIEWS 11:47 PM [facility] [place] [facility] Imaging Services [address] [place] [address] Lumbar Spine 2 or 3 Views MR#: [id number] Acct: [id number] Name: FRANCE NAM Rep #: [id number] : 1945 F 72 From: Toñito Castellanos MD PCP: Radha Sebastian NP Status: [facility] Study: Lumbar Spine 2 or 3 Views Date of Exam: 03/20/18 Exam# [id number] Ordering Dr: Yuri Walsh MD PROCEDURE: Left [...] Toñito Castellanos MD at 9:06 EDT Tel [phone], Service support , CC: Radha Sebastian CORRECTIONAL SUBSTANCE ABUSE COUNSELOR; Yuri Walsh Assembler Body: Signed CNOVSP Observed: 03/14/2018 Status: COMPLETED Source: [place] 9:00 AM [facility] REPOSITORY Visit (SP) Office (HEMAWS) FRANCE NAM ([id number]) 1945 F Date Time Provider Department 03/14/18 [...] 5.20 m/uL 3.57 (L) 3.79 (L) Hemoglobin, [facility] 11.5 - 15.5 g/dL 11.1 (L) 11.6 Hematocrit, [facility] 36.0 - 46.0 % 35.3 (L) 37.4 MCV, [facility] 80.0 - 100.0 fL 98.9 98.7 MCH, [facility] 26.0 - 34.0 pg 31.1 30.6 MCHC, [facility] 30.5 - 36.0 g/dL 31.4 31.0 RDW, [facility] 11.5 - 15.0 % 13.8 19.3 (H) Platelet Cnt, [facility] 150 - 400 k/uL 84 (L) 82 (L) MPV, [facility] 9.0 - 12.7 fL 8.3 (L) 8.3 [...] Theodora Whitney LPN Referring Provider: AUSTIN RODGERS [[id number]] Allergies As of Date: 03/14/2018 Noted Allergy [...] 03/16/18 PROGRESS Observed: 03/14/2018 Status: COMPLETED Source: [place] 8:56 AM [facility] [place] REPOSITORY HNO ID: [id number] Author: Mariela (Nick) Patrick Service: (none) Author [...] Ref Rng AND Units 09/13/2017 03/14/2018 WBC, [facility] 3.70 - 11.00 k/uL 5.31 4.22 RBC, [facility] 3.90 - 5.20 m/uL 3.57 (L) 3.79 (L) Hemoglobin, [facility] 11.5 - 15.5 g/dL 11.1 (L) 11.6 Hematocrit, [facility] 36.0 - 46.0 % 35.3 (L) 37.4 MCV, [facility] 80.0 - 100.0 fL 98.9 98.7 MCH, [facility] 26.0 - 34.0 pg 31.1 30.6 MCHC, [facility] 30.5 - 36.0 g/dL 31.4 31.0 RDW, [facility] 11.5 - 15.0 % 13.8 19.3 (H) [...] who agrees with treatment plan. Mariela Nguyen APRN.COAGULANT DIPPER ? [facility] ABS GR + CBC Collected: 03/14/2018 Status: F Source: [place] 8:46 AM [facility] REPOSITORY TYPE CODE TESTS RESULT OUT OF REFERENCE UNITS RANGE LAB WWBC 3.70-11.00 k/uL [facility] WBC 4.22 LAB WRBC 3.90-5.20 m/uL Low [facility] RBC 3.79 LAB WHGB 11.5-15.5 g/dL [facility] Hemoglobin 11.6 LAB WHCT 36.0-46.0 % [facility] Hematocrit 37.4 LAB WMCV 80.0-100.0 fL [facility] MCV 98.7 LAB WMCH 26.0-34.0 pg [facility] MCH 30.6 LAB WMCHC 30.5-36.0 g/dL [facility] MCHC 31.0 LAB WRDW 11.5-15.0 % [facility] High RDW 19.3 LAB WPLT 150-400 k/uL Low [facility] Platelet Cnt 82 LAB WMPV 9.0-12.7 fL Low [facility] MPV 8.3 Result Comment: Test performed at: [facility], [address] [place] [address] Rd[address] [place] [address]. LAB ABGRAN 1.45-7.50 k/uL Absol Gran 2.32 Count FINAL SURGICAL Observed: 02/10/2018 Status: F Source: [facility] PATHOLOGY REPORT 10:06 AM [facility] REPOSITORY . Pathology Reports Accession: Collected Date/Time: Received Date/Time: Pathologist: [id number] 02/10/2018 10:06 EDT 02/13/2018 09:54 EDT MD ADAM WELSH Final Surgical Pathology Report DIAGNOSIS: STOMACH (ANTRUM), BIOPSY: - HELICOBACTER PYLORI GASTRITIS. - IMMUNOHISTOCHEMICAL STAIN (WITH APPROPRIATE CONTROL) FOR H. PYLORI ORGANISMS IS POSITIVE COMMENT: [facility]# [id number] CLINICAL INFORMATION: Procedure: EGD Preoperative diagnosis: CIRRHOSIS Postoperative diagnosis: PORTAL HYPERTENSION GASTROPATHY SPECIMEN: A STOM, BX - GASTRIC ANTRUM BIOPSIES GROSS DESCRIPTION: Received in formalin labeled gastric antrum biopsies are a few su tissue fragments ranging from minute to 0.3 cm. TS -1 Dictated by SEAN MARTÍNEZ ([facility]) MICROSCOPIC DESCRIPTION: Slides reviewed. Electronically Signed by Pathology Report verified by [facility] Electronically signed by ADAM WELSH MD Sign out Date: 02/15/2018 10:17 Performing Lab: [facility], [address] [place] [address] Performed By: #### SPFR #### [place] [address] CBC-COMPLETE BLOOD CNT Collected: 02/06/2018 Status: F Source: [place] NO DIFF 3:02 PM [facility] [place] Order Comment: SEND COPY OF RESULTS [...] MPV 9.2 Performed By: #### L100.0500 #### [facility] [address] [place], [place], [address] COMPREHENSIVE METABOLIC Collected: 02/06/2018 Status: F Source: [place] PROFIL 3:02 PM [facility] [place] Order Comment: SEND COPY OF RESULTS [...] 10 Performed By: #### L500.4050, L503.6150 #### [facility] [address] [place], [place], [address] IRON Collected: 02/06/2018 Status: F Source: [place] 3:02 PM [facility] [place] Order Comment: SEND COPY OF RESULTS TO RADHA ESPINOZA. TYPE CODE TESTS RESULT OUT OF RANGE REFERENCE UNITS LAB L503.6150 50-170 ug/dL Low IRON 46 Performed By: #### L500.4050, L503.6150 #### [facility] [address] [place], [address] AFP, TUMOR MARKER Collected: 02/06/2018 Status: F Source: [place] 3:02 PM [facility] [place] Order Comment: SEND COPY OF RESULTS TO RADHA ESPINOZA. Is Patient ? N TYPE CODE TESTS RESULT OUT OF RANGE REFERENCE UNITS LAB L3300.0700 0.0-8.3 ng/mL Normal AFP TUMOR 4.2 2253 Result Comment: Rikki ECLIA methodology Performed at: [facility] [address] [id number] Cold Strip Roller: Sohail Palafox PhD, Phone: [phone] Performed By: #### L3300.0700 #### [facility] (refer to report for specific site) refer to report for address and phone number CNCO Observed: 01/03/2018 Status: COMPLETED Source: [place] 12:00 AM [facility] REPOSITORY Letter Text [address] [place] [address] [phone] 01/03/2018 Farnce Nam [address] [place] [phone] Dear Ms. Nam: Due to a change in the provider's schedule, it has been necessary to reschedule your 03/13 appointment. Enclosed please find a new appointment reminder that will replace the one previously sent to you. If this appointment is not convenient for you, please contact our office at [phone]. Thank you for choosing the [facility] as your Healthcare Provider. Sincerely, Appointment Office Enclosure US LIVER Observed: 10/31/2017 Status: F Source: [facility] 7:40 AM [facility] REPOSITORY ELASTOGRAPHY WITH IMAGING, US LIVER Ordering [...] ELASTOGRAPHY WITH Observed: 10/31/2017 Status: F Source: [employer] IMAGING 7:40 AM REPLACED BY [facility] ELASTOGRAPHY WITH IMAGING, US LIVER Ordering Physician: [...] 10/17/2017 Status: F Source: REGAN 10:41 AM [facility] [place] [facility] Medical Records Department [address] [place] [address] Operative Report 10/17/17 1040 MR#: [id number] Acct: [id number] Name: FRANCE NAM Rep #: [id number] : 1945 72 From: Yuri Walsh MD PCP: Radha Sebastian NP Status: [facility] Y Location: [facility] Problem List (1) Degeneration of intervertebral disc [...] BEDSIDE GLUCOSE Collected: 10/17/2017 Status: F Source: BAKER 8:19 AM [facility] [place] TYPE CODE TESTS RESULT OUT OF RANGE REFERENCE UNITS LAB L501.080 70-110 mg/dL Normal BEDSIDE GLU 102 Result Comment: MANAGEMENT OF PATIENT CARE PER NURSING PROTOCOL Performed By: #### L501.080 #### [facility] Point of Care [address] [place] [address] L/S SPINE MIN 4 Observed: 10/17/2017 Status: F Source: BAKER VIEWS 12:32 AM [facility] [place] [facility] Imaging Services [address] [place] [address] L/S Spine Min 4 Views MR#: [id number] Acct: [id number] Name: FRANCE NAM Rep #: [id number] : 1945 F 72 From: Toñito Castellanos MD PCP: Radha Sebastian NP Status: [facility] Study: L/S Spine Min 4 Views Date of Exam: 10/17/17 Exam# [id number] Ordering Dr: Yuri Walsh MD PROCEDURE: Right [...] Toñito Castellanos MD at 11:32 EDT Tel [phone], Service support , CC: Radha Sebastian NP; Yuri Walsh Assembler Body: Signed PROGRESS Observed: 09/13/2017 Status: COMPLETED Source: [place] 11:39 AM [facility] REPOSITORY O ID: [id number] Author: Austin Rodgers Service: (none) Author Type: [...] in-situ hybridization tests have been determined by [facility]'s [facility] Pathology and Laboratory Medicine [place] ([facility]) in a manner consistent with CLIA requirements. One or more of these tests have not been cleared or approved by the FDA. [facility] is regulated under CLIA as [...] Pathologist: José Collins M.D. Lab Analysis No: [id number] Doctor/Pathologist: Vishal/Curly Surgical Pathology No: [id number] Clinical diagnosis: Thrombocytopenia Specimen Type: Bone Marrow [...] in diagnosis. Arnoldo Rawls MD Performed by [facility] Pathology and Laboratory Medicine [place] Division of Molecular Pathology Cytogenetics Lab, [facility] [address] [place] [address] Toll free: Procedure Pathologist: Arnoldo Rawls M.D. FLOW CYTOMETRY - BONE MARROW LOW GRADE LEUK MARKERS ? Date Ordered: ?09/02/2017 ? ? ? Date Reported: ?09/02/2017 Procedure Results and Interpretation Specimen type: ?Bone Marrow Viability: 98% ? ? Morphology comments: see [id number] Results: Marker ? Normal Cell ? ?Result(Lymphocytes) [...] developed and its performance characteristics determined by [facility]'s Munir JJavy [facility] Pathology and Laboratory Medicine [place] ([facility]). It has not been cleared or approved by the FDA. -PLMN is regulated under CLIA as qualified to [...] DO CNOVSP Observed: 09/13/2017 Status: COMPLETED Source: [place] 11:10 AM [facility] REPOSITORY Visit (SP) Office (DANY) FRANCE NAM ([id number]) 1945 F Date Time Provider Department 09/13/17 [...] in-situ hybridization tests have been determined by [facility]'s [facility] Pathology and Laboratory Medicine [place] ([facility]) in a manner consistent with CLIA requirements. One or more of these tests have not been cleared or approved by the FDA. [facility] is regulated under CLIA as [...] Pathologist: José Collins M.D. Lab Analysis No: [id number] Doctor/Pathologist: Dina Surgical Pathology No: [id number] Clinical diagnosis: Thrombocytopenia Specimen Type: Bone Marrow [...] in diagnosis. Arnoldo Rawls MD Performed by [facility] Pathology and Laboratory Medicine [place] Division of Molecular Pathology Cytogenetics Lab, [place] [address] Toll free: Procedure Pathologist: Arnoldo Rawls M.D. FLOW CYTOMETRY - BONE MARROW LOW GRADE LEUK MARKERS ? Date Ordered: ?09/02/2017 ? ? ? Date Reported: ?09/02/2017 Procedure Results and Interpretation Specimen type: ?Bone Marrow Viability: 98% ? ? Morphology comments: see [id number] Results: Marker ? Normal Cell ? ?Result(Lymphocytes) [...] developed and its performance characteristics determined by [facility]'s [facility]ir [facility] Pathology and Laboratory Medicine [place] ([facility]). It has not been cleared or [...] Austin Rodgers DO Referring Provider: AUSTIN RODGERS [[id number]] Allergies As of Date: 09/13/2017 Noted Allergy [...] [R16.1] Order(s):IRON + TIBC [SQIRON] Order #: [id number] FUTURE FERRITIN BLD [SQFERR] Order #: [id number] FUTURE Follow-up and Disposition History Recorded Prescriptions [...] Status:Closed by AUSTIN RODGERS DO on 09/13/17 REGAN ABS GR + CBC Collected: 09/13/2017 Status: F Source: [place] 11:05 AM [facility] REPOSITORY TYPE CODE TESTS RESULT OUT OF REFERENCE UNITS RANGE LAB WWBC 3.70-11.00 k/uL Regan WBC 5.31 LAB WRBC 3.90-5.20 m/uL Low Regan RBC 3.57 LAB WHGB 11.5-15.5 g/dL Low [place]an Hemoglobin 11.1 LAB WHCT 36.0-46.0 % Low [place]an Hematocrit 35.3 LAB WMCV 80.0-100.0 fL Kodak MCV 98.9 LAB WMCH 26.0-34.0 pg [place] MCH 31.1 LAB WMCHC 30.5-36.0 g/dL [place] MCHC 31.4 LAB WRDW 11.5-15.0 % Kodak RDW 13.8 LAB WPLT 150-400 k/uL Low [place] Platelet Cnt 84 LAB WMPV 9.0-12.7 fL Low Kodak MPV 8.3 Result Comment: Test performed at: [address] [place] [address]. LAB ABGRAN 1.45-7.50 k/uL Absol Gran 3.31 Count SED RATE WESTERGREN Collected: 09/06/2017 Status: F Source: [place] 1:41 PM [facility] REPOSITORY TYPE CODE TESTS RESULT OUT OF REFERENCE UNITS RANGE LAB WSR 0-20 mm/hr Sed Rate High Westergren 57 Performed By: #### WSR, CRP, KLFRS, SEPG, MPASRM #### [facility] [address] [place], [place] [address] C-REACTIVE PROTEIN Collected: 09/06/2017 Status: F Source: [place] 1:41 PM [facility] REPOSITORY TYPE CODE TESTS RESULT OUT OF REFERENCE UNITS RANGE LAB CRP <0.9 mg/dL C-Reactive 0.3 Protein Performed By: #### WSR, CRP, KLFRS, SEPG, MPASRM #### [facility] [address] [place], [place] [address] KAPPA/MARTINEZ,FREE,SER Collected: Status: F Source: [place] 09/06/2017 1:41 PM [facility] REPOSITORY TYPE CODE TESTS RESULT OUT OF REFERENCE UNITS RANGE LAB FKAPS 3.30-19.40 mg/L High Saranap, 96.5 Free, Serum Result Comment: Rarely, increased [...] #### WSR, CRP, KLFRS, SEPG, MPASRM #### [facility] [address] [place], [place] [address] PROTEIN ELECTROPHOR. Collected: 09/06/2017 Status: F Source: [place] 1:41 PM [facility] REPOSITORY TYPE CODE TESTS RESULT OUT [...] Staff Review Reviewed by Hai Deleon M.D. ([id number]) Performed By: #### WSR, CRP, KLFRS, SEPG, MPASRM #### [facility] [employer] [address] [place], [place] [address] MONOCLONL PROTEIN,BL Collected: 09/06/2017 Status: F Source: [place] 1:41 PM [facility] REPOSITORY TYPE CODE TESTS RESULT OUT OF REFERENCE UNITS RANGE LAB MPAIGG 717-1411 mg/dL High MPA Serum 1570 IgG LAB MPAIGA 78-391 mg/dL MPA Serum 361 IgA LAB MPAIGM 53-334 mg/dL MPA Serum 163 IgM LAB MPAK 534-1267 mg/dL High Serum 1510 Saranap LAB MPAL 253-653 mg/dL High Serum 664 Lambda LAB MPAKL 1-3 MPA 2.27 Katie/Moore Ratio LAB MPAR No M protein is identified. No MPA M protein is Result identified. LAB MPASTF Staff Reviewed by Review Hai Deleon M.D. ([id number]) Performed By: #### WSR, CRP, KLFRS, SEPG, MPASRM #### [facility] [address] [place], [place] [address] NURSING PROG Observed: 08/31/2017 Status: COMPLETED Source: [place] 2:22 PM [facility] REPOSITORY HNO ID: [id number] Author: Marti Garner RN Service: (none) Author Type: Registered Nurse Type: Nursing Progress Note Filed: 08/31/2017 2:33 PM Note Text: Patient did not experience a fall prior to discharge. Patient did not experience a burn prior to discharge. Marti Garner RN NURSING PROG Observed: 08/31/2017 Status: COMPLETED Source: [place] 1:33 PM [facility] REPOSITORY HNO ID: [id number] Author: Agnes Mendez RN Service: Nursing Author Type: Registered Nurse Type: Nursing Progress Note Filed: 08/31/2017 1:33 PM Note Text: Patient did not experience a fall within the Intraoperative area. Patient did not experience a burn within the Intraoperative area. Agnes Mendez RN OPERATIVE NO Observed: 08/31/2017 Status: COMPLETED Source: [place] 1:29 PM [facility] REPOSITORY HNO ID: [id number] Author: Austin Rodgers Service: Hematology/Oncology Author Type: Physician Type: Operative Report Filed: 08/31/2017 1:31 PM Note Text: SURGEON 1: Austin Rodgers D.O. STAFF WRITER 1: None. OPERATION: Bone marrow aspiration and [...] space was entered with a 4 in [employer] biopsy drill set. Approximately 0.5 mL was [...] NURSING PROG Observed: 08/31/2017 Status: COMPLETED Source: [place] 1:11 PM [facility] REPOSITORY HNO ID: [id number] Author: Marti Garner RN Service: (none) Author [...] PT ED Observed: 08/31/2017 Status: COMPLETED Source: [place] 12:39 PM [facility] REPOSITORY HNO ID: [id number] Author: Marti (Rn) Patsy RN Service: (none) [...] Marti Garner RN In Department: AMBULATORY SURGERY BAKER CBC AND DIFF Collected: 08/31/2017 Status: F Source: [place] 12:20 PM [facility] REPOSITORY TYPE CODE TESTS RESULT OUT OF REFERENCE UNITS RANGE LAB WWBC 3.70-11.00 k/uL [place] WBC 6.58 LAB WRBC 3.90-5.20 m/uL Low [place] RBC 3.59 LAB WHGB 11.5-15.5 g/dL Low Regan Hemoglobin 11.3 LAB WHCT 36.0-46.0 % Low [place] Hematocrit 35.7 LAB WMCV 80.0-100.0 fL [place] MCV 99.4 LAB WMCH 26.0-34.0 pg Reg[place] MCH 31.5 LAB WMCHC 30.5-36.0 g/dL Reg[place] MCHC 31.7 LAB WRDW 11.5-15.0 % Regan RDW 13.7 LAB WPLT 150-400 k/uL Low [place] Platelet Cnt 92 LAB WMPV 9.0-12.7 fL Low Regan MPV 8.9 Result Comment: Test performed at: [address] [place] [address]. LAB WNEUT % Regan Neut% 58.4 LAB WLYMP % Kodak Lymp% 29.5 LAB WMONOC % Kodak [place]% 9.1 LAB WEOS % Regan Eos% 2.7 LAB WBASO % Kodak Baso% 0.3 LAB WANEUT 1.45-7.50 k/uL [place] Abs Neut 3.84 LAB WALYMP 1.00-4.00 k/uL [place] Abs Lymp 1.94 LAB WAMONO <0.87 k/uL Regan Abs [place] 0.60 LAB WAEOS <0.46 k/uL Kod[place] Abs Eos 0.18 LAB WABASO <0.11 k/uL Kodak Abs Baso <0.03 FLOW CYTO HOLD Collected: 08/31/2017 Status: F Source: [place] SAMPLE 12:20 PM [facility] REPOSITORY TYPE CODE TESTS RESULT OUT OF REFERENCE UNITS RANGE LAB BISHOP A bone marrow sample was Flow received for potential Cyto Hold flow cytometry Sample studies. Following morphologic review of the bone marrow, flow cytometric studies will be ordered by the hematopathologist if testing is indicated. Please see the corresponding bone marrow surgical pathology report. Result Comment: [id number] Performed By: #### FLOHLD #### [facility] [address] [place] [address] SURGICAL PATHOLOGY Observed: 08/31/2017 Status: C Source: [place] 12:20 PM [facility] REPOSITORY ADDITIONAL PROCEDURES PRESENT Specimen originated from [facility] Specimen #: [id number] Submitting Physician: AUSTIN RODGERS M.D. ([id number]) FINAL [...] in-situ hybridization tests have been determined by [facility]'s [facility] Pathology and Laboratory Medicine [place] ([facility]) in a manner consistent with CLIA requirements. One or more of these tests have not been cleared or approved by the FDA. [facility] is regulated under CLIA as [...] Pathologist: José Collins M.D. Lab Analysis No: [id number] Doctor/Pathologist: Dina Surgical Pathology No: [id number] Clinical diagnosis: Thrombocytopenia Specimen Type: Bone Marrow [...] in diagnosis. Arnoldo Rawls MD Performed by [facility] Pathology and Laboratory Medicine [place] Division of Molecular Pathology Cytogenetics Lab, [place] [address] [place] [address] Toll free: Procedure Pathologist: Arnoldo Rawls M.D. Electronic Signature FLOW CYTOMETRY - BONE MARROW LOW GRADE LEUK MARKERS Date Ordered: 09/02/2017 Date Reported: 09/02/2017 Procedure Results and Interpretation Specimen type: Bone Marrow Viability: 98% Morphology comments: see [id number] Results: Marker Normal Cell Result(Lymphocytes) Type CD2 [...] developed and its performance characteristics determined by [facility]'s [facility] Pathology and Laboratory Medicine [place] ([facility]). It has not been cleared or approved by the FDA. [facility] is regulated under CLIA as qualified to perform high-complexity testing. This test is used for clinical purposes. It should not be regarded as investigational or for research. Procedure Pathologist: Arnoldo Rawls M.D. Electronic Signature CLINICAL DATA THROMBOCYTOPENIA, SPLENOMEGALY. [...] in one cassette. Gross examination performed at [facility], [address] [place] [address] 08/31/2017 11:31:01 PM Date of Report: 09/02/2017 Date of Procedure: 08/31/2017 Date of Receipt: 08/31/2017 Submitted by: AUSTIN RODGERS M.D. ([id number]) Location: W010 Diagnostic interpretation performed at [facility], [address] [place] [address]. CHROMOSOME BM Collected: 08/31/2017 Status: F Source: [place] 12:20 PM [facility] REPOSITORY TYPE CODE TESTS RESULT OUT OF REFERENCE UNITS RANGE LAB CRBM Chromosome (NOTE) Analysis Result Comment: Performing Pathologist: José Collins M.D. Lab Analysis No: [id number] Doctor/Pathologist: Vishal/Curly Surgical Pathology No: [id number] Clinical diagnosis: Thrombocytopenia Specimen Type: Bone Marrow [...] Pathologist Interpretation: José Collins MD Performed by [facility] Pathology and Laboratory Medicine [place] Division of Molecular Pathology Cytogenetics Lab, [address] [place] [address] Toll free: Performed By: #### [facility] #### [place] [address] ALLERGIES ALLERGIES DATE TYPE / NAME / CODE REACTION SEVERITY SOURCE CODE 03/20/2018 Drug Penicillins/G90250 Rash Unknown Regan Allergy/41 0476(RXNORM) [facility] 9997192([facility]) Repository 03/20/2018 Drug Sulfa (Sulfonamide Rash Unknown Kodak Allergy/41 Antibiotics)/F0010 [facility] 5199117( 59217(RXNORM) [facility]) Repository 03/20/2018 Drug iodine/J875389406( Rash Unknown Regan Allergy/41 RXNORM) [facility] 9900806([facility]) Repository 03/20/2018 Drug erythromycin Rash Unknown Kodak Allergy/41 base/E616342109(RX Community 8989641(SN NORM) Hospital OMED CT) Repository 01/07/2009 DRUG/39547 ERYTHROMYCIN INTOLERANCE [facility] 1003(SNOME [place] D [facility]) Repository 06/26/2007 [facility] [place] 8760729(SN Repository OMED CT) 12/05/2006 DRUG [facility]INE [facility] [place] 2832249(SN Repository OMED CT) 12/05/2006 Drug PENICILLINS RASH [facility] Class/4195 [place] [address](SNOM Repository ED CT) 12/05/2006 Drug SULFA (SULFONAMIDE INTOLERANCE [facility] Class/4195 ANTIBIOTICS) [place] [address](SNOM Repository ED CT) ENCOUNTERS ENCOUNTERS ADMIT/DISCHARGE ACCOUNT NUMBER ADMITTING ENCOUNTER LOCATION SOURCE CLASS 08/08/2018 [id number] Ambulatory Building:[facility] [place] Practices Repository 07/17/2018/07/17/[id number] ding:SDCRoom Repository : AC16 07/14/2018 [id number] [facility] ding:MTLAB Repository 07/04/2018 [id number] Ambulatory [facility] ding:CT Repository 04/19/2018 [id number] [facility] ding:MTLAB Repository 03/20/2018/03/20/20 [id number] Ambulatory [address] ding:SDC Repository 03/14/2018/03/15/20 [id number] Ambulatory [address] [place] Repository 03/14/2018/03/17/20 [id number] Ambulatory [address] [place] Repository 03/14/2018/03/14/20 [id number] Ambulatory [address] [place] Repository 02/10/2018/02/11/20 [id number] Ambulatory [address] ding:MINR [facility] Repository 02/06/2018 [id number] [facility] ding:MTLAB Repository 01/05/2018 [id number] [facility] ding:DC Repository 10/31/2017 [id number] [facility] ng:H. 10/17/2017/10/18/[id number] ding:SD Repository 09/13/2017/09/14/19 [id number] Ambulatory [address] Repository 09/13/2017/09/14/19 [id number] Ambulatory [address] Repository 09/06/2017/09/06/19 [id number] Ambulatory [address] Repository 08/31/2017 [id number] Ambulatory [facility] Repository 08/31/2017/08/31/19 [id number] AUSTIN RODGERS Ambulatory [address] Repository 08/24/2017/08/31/[id number] ding:DC Repository FUNCTIONAL STATUS FUNCTIONAL STATUS No Functional Status Records FoundEQUIPMENT EQUIPMENT No Equipment Records FoundPAYERS PAYERS ENCOUNTER GUARANTOR PAYER SUBSCRIBER SOURCE 08/08/2018 [place] E Primary [place] E OHIP Practices ListerDOB: Insurance:MedicarePol ListerDOB: Repository [id number] Box icy Number: [id number] [address] [address] [address]Fyg: Date:7005-90-47Ezby [place], [place] Name:RIDING SILKS CUSTODIAN [address] [address]Uwv: [phone]) (RG) 792667Mfqcknap, [place] [phone] () [address]WP: 08/08/2018 Secondary [place] E OHIP Practices Insurance:AARP/UHCPol ListerDOB: Repository icy Number: [id number] [address] Date:1625-01-53Wsom [place], [place] Name:[address] [address]Gev: [id number] [employer] [employer], [place] ~([phone]: [phone] (KW) [phone] 08/08/2018 Tertiary Rashid OHIP Practices Insurance:Medical ListerDOB: Repository [facility] [id number] Number: [address] [id number] [place], [place] Date: - [address]Pov: [phone] () Name:[facility] Thomas [address]Czchmer[place], [place] [id number]: 07/17/2018 ELIZABETH Harrison Primary [place] [id number] Insurance:MEDICARE LISTERDOB: Community [address] PART A [facility] [id number], [place] Number: Repository [address]Mty: (834) [id number] [phone] () Date:2018-07-07 07/17/2018 Secondary FRANCE E Kodak Insurance:AARPPolicy LISTERDOB: Community Number: [id number] Hospital [id number] Repository Date:8326-73-72PD[address] [address]YZ: 07/17/2018 Tertiary NOT GIVENUNK Kodak Insurance:SELF PAY [facility] Number: Effective Repository Date:2018-07-07 07/14/2018 ELIZABETH Spears [id number] Insurance:MEDICARE LISTERDOB: Community [address] [facility] [id number], [place] Number: Repository [address]Lrn: 419 [id number] [phone] () Date:2018-07-14 07/14/2018 Secondary FRANCE E Kodak Insurance:AARPPolicy LISTERDOB: Community Number: [id number] Hospital [id number] Repository Date:8524-23-22ZP[address] [address]CF: 07/14/2018 Tertiary NOT GIVENUNK Kodak Insurance:SELF PAY [facility] Hospital Number: Effective Repository Date:2018-07-14 07/04/2018 ELIZABETH Spears [id number] Insurance:MEDICARE LISTERDOB: Community [address] [facility] [id number], [place] Number: Repository [address]Fce: 419 [id number] [phone] () Date:2018-06-26 07/04/2018 Secondary FRANCE E Kodak Insurance:AARPPolicy LISTERDOB: Community Number: [id number] Hospital [id number] Repository Date:9505-30-03XD[address] [address]YD: 07/04/2018 Tertiary NOT GIVENUNK Regan Insurance:SELF PAY [facility] Effective Repository Date:2018-06-26 04/19/2018 ELIZABETH Harrison Primary FRANCE E Regan [id number] Insurance:MEDICARE LISTERDOB: Community [address] PART [address] [facility] [id number]. [facility] [place] Number: Repository [address]Zmc: 419 [id number] [phone] () Date:2018-04-19 04/19/2018 Secondary FRANCE E Regan Insurance:AARPPolicy LISTERDOB: Community Number: [id number] Hospital [id number] Repository Date:5271-98-45OZ[address] [address]TH: 04/19/2018 Tertiary NOT GIVENUNK Kodak Insurance:SELF PAY [facility] Hospital Number: Effective Repository Date:2018-04-19 03/20/2018 ELIZABETH Harrison Primary FRANCE E Kodak [id number] Insurance:MEDICARE LISTERDOB: Community [address] PART [address] [facility] [id number]. [facility] [place] Number: Repository [address]Ekk: 419 [id number] [phone] () Date:2018-03-13 03/20/2018 Secondary FRANCE E Regan Insurance:AARPPolicy LISTERDOB: Community Number: [id number] Hospital [id number] Repository Date:7160-28-93[address]XDLCEHM, [place] [address]KY: 03/20/2018 Tertiary NOT GIVENUNK Kodak Insurance:SELF PAY [facility] Number: Effective Repository Date:2018-03-13 02/10/2018 FRANCE E Primary FRANCE E [facility] LISTERDOB: Insurance:MEDICARE LISTERDOB: Foundation [id number] BOX PART BPolicy Number: [id number] Repository [address], [id number] [address] [place] [address]Jht: Date:2018-02-06 [place], [place] 8922-58-15Kukt [address]Hvx: ([phone]) () Name:[facility] [id number] [facility] LLCPO ()Tel: (000) [address] [address]Tdrrigpky, 000-0000 (WP) [place] [address]PQ: 02/10/2018 Secondary FRANCE E [facility] Insurance:AARP [place] LISTERDOB: [facility] [id number] Repository ONLYPolicy Number: [address] [id number] [place], [place] Date:2018-02-06 [address]Vpt: [phone] [phone] Name:R[employer]ING SILKS CUSTODIAN Box (HP)Tel: ([phone]) [phone], [place] 000-0000 () [address]TD: 02/06/2018 ELIZABETH Harrison Primary FR[place] E Kodak [id number] Insurance:MEDICARE LISTERDOB: [facility] [address] [facility] [id number], [place] Number: Repository [address]Njr: 419 [id number] [phone] () Date:2018-02-06 02/06/2018 Secondary FRANCE E Kodak Insurance:AARPPolicy LISTERDOB: [facility] Number: [id number] Hospital [id number] Repository Date:8415-00-29[address]VAEXBMY, [place] [address]FE: 02/06/2018 Tertiary NOT GIVENUNK Regan Insurance:SELF PAY Community [facility] Hospital Number: Effective Repository Date:2018-02-06 01/05/2018 ELIZABETH Harrison Primary [place] E Kodak [id number] Insurance:MEDICARE LISTERDOB: Community [address] [facility] [id number] Health [facility], [place] Number: Repository [address]Cnb: 419 [id number] [phone] (HP) Date:2011-09-30 01/05/2018 Secondary [place] E Kodak Insurance:AARPPolicy LISTERDOB: Community Number: [id number] Hospital [id number] Repository Date:2001-73-17[address]MUVRXMM, [place] [address]HY: 01/05/2018 Tertiary NOT GIVENUNK Kodak Insurance:SELF PAY [facility] Number: Effective Repository Date:2017-09-01 10/31/2017 FRANCE E Primary [facility] B[facility] Insurance:MEDICARE[address] Number: Repository [place] [address]Lgp: [id number] Date:2011-09-30[facility] () [facility] [id number] CODE GI[place] [address]PE: 10/31/2017 Secondary [facility] E [facility] Insurance:AARP-2ND TO [place] MEDICAREPolicy Repository Number: [id number] Date:[id number], [place] [address]HJ: 10/17/2017 ELIZABETH Harrison Primary FRANCE E Regan [id number] Insurance:MEDICARE LISTERDOB: Community [address] [facility] [id number] [place] Number[facility] Repository [id number]: [phone] [id number] [phone] (HP) Date:2017-10-11 10/17/2017 Secondary FRANCE E [employer] Insurance:AARPPolicy LISTERDOB: Community Number: [id number] [id number] Repository Date:[id number], [place] [address]GU: 10/17/2017 Tertiary NOT GIVENUNK [employer] Insurance:SELF PAY [facility] Number: Effective Repository Date:2017-10-11 08/24/2017 Elizabeth Harrison Primary FRANCE Nash Spears [id number] Insurance:MEDICARE LISTERDOB: [facility] [address] [facility] [id number] Repository [id number]: [id number] Date:2011-09-30 () 08/24/2017 Secondary FRANCE E Regan Insurance:AARPPolicy LISTERDOB: [facility] Number: [id number] [id number] Repository Date:[id number], [place] [address]UG: 08/24/2017 Tertiary NOT GIVENUNK [employer] Insurance:SELF PAY [facility] Number: Effective Repository Date:2017-08-01 SOCIAL HISTORY SOCIAL HISTORY No Social History Records FoundFAMILY HISTORY FAMILY HISTORY No Family History Records FoundADVANCE DIRECTIVES ADVANCE DIRECTIVES No Advanced Directives Records FoundINFORMATION SOURCE INFORMATION SOURCE DATE CREATED AUTHOR AUTHOR'S ORGANIZATION 08/23/2018 [facility]
== END 2018-07-17 10:29 | disposition home or self-care (01) ==
LOC: SDC 07:40 → AC 07:42
PROVIDERS: Family Provider Nurse Practitioner; PCP Nurse Practitioner; Referring Provider Anesthesiology Pain Medicine; Visit Provider Anesthesiology Pain Medicine
PROC: 3E0T3BZ Introduction of Anesthetic Agent into Peripheral Nerves and Plexi, Percutaneous Approach (ICD-10-PCS; CPT 64493; principal; 2018-07-17 09:25)
DX: M47.817 Spondylosis without myelopathy or radiculopathy, lumbosacral region (principal); M51.37 Other intervertebral disc degeneration, lumbosacral region; M46.96 Unspecified inflammatory spondylopathy, lumbar region; I10 Essential (primary) hypertension; E78.00 Pure hypercholesterolemia, unspecified; E11.9 Type 2 diabetes mellitus without complications; E78.5 Hyperlipidemia, unspecified; M10.9 Gout, unspecified; F32.9 Major depressive disorder, single episode, unspecified; J30.2 Other seasonal allergic rhinitis; E66.01 Morbid (severe) obesity due to excess calories; Z68.43 Body mass index [BMI] 50.0-59.9, adult; Z79.84 Long term (current) use of oral hypoglycemic drugs; Z99.81 Dependence on supplemental oxygen; Z79.891 Long term (current) use of opiate analgesic; Z79.899 Other long term (current) drug therapy
CPT/HCPCS: 64493; 64494; 64495; 64483; 72110; 82962; J7120

== ENCOUNTER → 2018-09-04 13:27 | Outpatient (CLI) | payer MEDICARE, OTHER, SELFPAY ==
[2018-09-04 15:28] LABS: Absolute Lymphocyte Count 1.04 X10^3/ul (0.83-4.51); Absolute Neutrophil Count 1.6 X10^3/uL (2.0-7.7); Basophil# 0.01 X10^3/uL; Basophil% 0.3 % (0-1); Eosinophil# 0.06 X10^3/uL; Hematocrit 40.9 % (37-47); Hemoglobin 13.1 g/dl (12.0-15.0); Lymphocyte # 1.04 X10^3/ul (4.0); Lymphocyte % 34.4 % (19-41); Mean Corpuscular Hgb 32.6 pg (27.0-32.0); Mean Corpuscular Volume 101.7 fL (81-99); Mean Platelet Vol. 9.3 fl (6.2-12.0); Monocyte# 0.32 X10^3/uL; Monocyte% 10.6 % (0-10); Neutrophil # 1.59 X10^3/uL (2.7-7.7); Neutrophil % 52.7 % (47-70); Platelet Count 66 K/mm3 (150-450); RBC Distribution Width CV 13.8 % (11.6-14.6); RBC Distribution Width SD 51.4 fl (35.1-43.9); Red Blood Count 4.02 M/mm3 (4.2-5.4)
[2018-09-04 15:34] LABS: POSITIVE COUNT NO; POSITIVE DIFFERENTIAL NO; POSITIVE MORPHOLOGY NO
[2018-09-04 15:39] LABS: ALB/GLOB Ratio 0.7 RATIO (0.9-2.4); AST(SGOT) 41 U/L (15-37); Alanine Aminotransfer ALT/SGPT 32 U/L (13-56); Albumin, Serum 3.1 g/dL (3.2-5.0); Alkaline Phosphatase 114 U/L (45-117); Anion Gap 9 (5-15); BUN 16 mg/dL (7-18); BUN/Creat Ratio 20.9 RATIO (10-20); Calcium,Total 9.6 mg/dL (8.5-10.1); Chloride 108 mmol/L (98-107); Creatinine, Serum 0.77 mg/dL (0.55-1.02); EST Glomerular Filtration Rate 79 mL/min (>60); Est Glom Filt Rate - Afr Amer 95 mL/min (>60); Globulin 4.2 g/dL (2.2-4.2); Glucose 86 mg/dL (74-106); Potassium 4.2 mmol/L (3.5-5.1); Protein, Total 7.3 g/dL (6.4-8.2); Sodium Level 144 mmol/L (136-145)
== END ==
PROVIDERS: Family Provider Nurse Practitioner; PCP Nurse Practitioner; Referring Provider Internal Medicine Rheumatology; Visit Provider Internal Medicine Rheumatology
DX: M06.4 Inflammatory polyarthropathy (principal); M79.7 Fibromyalgia; M17.0 Bilateral primary osteoarthritis of knee; M51.37 Other intervertebral disc degeneration, lumbosacral region
CPT/HCPCS: 36415; 80053; 85025

== ENCOUNTER → 2018-09-15 12:19 | Outpatient (CLI) | payer MEDICARE, OTHER, SELFPAY ==
--- NOTE | 2018-09-15 12:22 | BI_ITS ---
MAMMOGRAPHY - BILATERAL SCREENING REASON FOR EXAM: Female, 72 years old. Routine annual screening examination. PERTINENT HISTORY: Personal history of breast cancer. Prior right lumpectomy with radiation and chemotherapy. TECHNIQUE: Digital bilateral breast jovanni (3D mammographic acquisition) in the CC and MLO projections. 2-D mediolateral oblique (MLO) and craniocaudad (CC) views of both breasts were obtained. CAD: Full Field Digital Mammography with Computer Added Detection was performed. COMPARISON: Comparison is made with a prior examination of April 01, 2017 and March 19, 2016. FINDINGS: Breast Composition: The breasts are almost entirely fatty. There are no dominant masses or suspicious calcifications. Stable deformity and decreased size of the right breast secondary to prior lumpectomy. Surgical clips are seen in the right axillary region. No other significant abnormalities are identified. There has been no significant change since the prior study. BI/SCREENING MAMM (CAD), BILAT IMPRESSION: Stable bilateral screening mammogram. Yearly follow-up mammogram recommended. (A) ASSESSMENT CATEGORY: BIRADS Category 2: Benign. A letter regarding these results will be sent to the patient by the facility within 30 days. Approximately 10% of breast cancers are not detected by mammography. A normal mammogram should not delay biopsy of a clinically suspicious abnormality. [id number] Electronically Signed: Toñito Castellanos MD at 15:15 EST , Service support ,
== END ==
PROVIDERS: Family Provider Nurse Practitioner; PCP Nurse Practitioner; Referring Provider Nurse Practitioner; Visit Provider Nurse Practitioner
DX: Z12.31 Encounter for screening mammogram for malignant neoplasm of breast (principal)
CPT/HCPCS: 77063; 77067

== ENCOUNTER → 2018-12-27 13:28 | Outpatient (CLI) | payer MEDICARE, OTHER, SELFPAY ==
--- NOTE | 2018-12-27 13:33 | RAD_ITS ---
STUDY: X-RAY - RIGHT KNEE REASON FOR EXAM: Female, 73 years old. Chronic pain TECHNIQUE: 5 view(s) of the knee. COMPARISON: None. FINDINGS: Normal visualized distal femur. Normal visualized proximal tibia and fibula. Normal proximal tibiofibular articulation. There is no demonstrated fracture. There is severe degenerative arthrosis of the medial femorotibial compartment with severe joint space narrowing. There is mild degenerative arthrosis of the lateral femorotibial compartment. There is mild degenerative arthrosis of the patellofemoral articulation. The tibia is subluxed laterally indicating ligamentous laxity. There is no demonstrated joint effusion. The soft tissue structures are unremarkable. RAD/Knee 4 or More Views IMPRESSION: No acute fracture or dislocation. Degenerative changes especially severe medially. Electronically Signed: David Gonzalez MD at 15:40 EDT , Service support ,
--- NOTE | 2018-12-27 13:33 | RAD_ITS ---
STUDY: X-RAY - LEFT KNEE REASON FOR EXAM: Female, 73 years old. Chronic pain TECHNIQUE: 5 view(s) of the knee. COMPARISON: None. FINDINGS: Normal visualized distal femur. Normal visualized proximal tibia and fibula. Normal proximal tibiofibular articulation. There is no demonstrated fracture. There is severe degenerative arthrosis of the medial femorotibial compartment with severe joint space narrowing. There is mild degenerative arthrosis of the lateral femorotibial compartment. There is mild degenerative arthrosis of the patellofemoral articulation. The tibia is subluxed laterally indicating ligamentous laxity. There is no demonstrated joint effusion. The soft tissue structures are unremarkable. RAD/Knee 4 or More Views IMPRESSION: No acute fracture or dislocation. Degenerative changes especially severe medially. Electronically Signed: David Gonzalez MD at 14:05 EDT , Service support ,
== END ==
PROVIDERS: Family Provider Nurse Practitioner; PCP Nurse Practitioner; Referring Provider Internal Medicine; Visit Provider Internal Medicine
DX: M17.0 Bilateral primary osteoarthritis of knee (principal); G89.29 Other chronic pain
CPT/HCPCS: 73564

== ENCOUNTER → 2019-01-02 13:29 | Outpatient (CLI) | payer MEDICARE, OTHER, SELFPAY ==
[2019-01-03 12:20] LABS: AFP, Tumor Marker 4.4 ng/mL (0.0-8.3)
== END ==
PROVIDERS: Family Provider Nurse Practitioner; PCP Nurse Practitioner; Referring Provider Internal Medicine Gastroenterology; Visit Provider Internal Medicine Gastroenterology
DX: K74.60 Unspecified cirrhosis of liver (principal); D50.9 Iron deficiency anemia, unspecified
CPT/HCPCS: 36415; 82105

== ENCOUNTER → 2019-01-03 14:35 | Outpatient (CLI) | payer MEDICARE, OTHER, SELFPAY ==
[2019-01-03 15:45] LABS: Absolute Lymphocyte Count 1.14 X10^3/ul (0.83-4.51); Basophil# 0.02 X10^3/uL; Basophil% 0.6 % (0-1); Eosinophil# 0.12 X10^3/uL; Eosinophils% 3.4 % (0-5); Hematocrit 40.3 % (37-47); Hemoglobin 13.4 g/dl (12.0-15.0); Lymphocyte # 1.14 X10^3/ul (4.0); Lymphocyte % 32.4 % (19-41); Mean Corp Hgb Conc 33.3 g/gl (32-36); Mean Corpuscular Hgb 32.8 pg (27.0-32.0); Mean Corpuscular Volume 98.8 fL (81-99); Mean Platelet Vol. 9.4 fl (6.2-12.0); Monocyte# 0.28 X10^3/uL; Neutrophil # 1.96 X10^3/uL (2.7-7.7); Neutrophil % 55.6 % (47-70); Platelet Count 72 K/mm3 (150-450); Red Blood Count 4.08 M/mm3 (4.2-5.4); White Blood Count 3.5 K/mm3 (4.4-11.0)
[2019-01-03 15:56] LABS: POSITIVE COUNT NO; POSITIVE DIFFERENTIAL NO; POSITIVE MORPHOLOGY NO
== END ==
PROVIDERS: Family Provider Nurse Practitioner; PCP Nurse Practitioner; Referring Provider Internal Medicine Gastroenterology; Visit Provider Internal Medicine Gastroenterology
DX: D50.9 Iron deficiency anemia, unspecified (principal); K74.60 Unspecified cirrhosis of liver
CPT/HCPCS: 85025

== ENCOUNTER → 2019-05-30 10:14 | Outpatient (CLI) | payer MEDICARE, OTHER, SELFPAY ==
--- NOTE | 2019-05-30 11:12 | RAD_ITS ---
STUDY: X-RAY - RIGHT SHOULDER REASON FOR EXAM: Female, 73 years old. Pain, decreased range of motion TECHNIQUE: 4 view(s) of the shoulder. COMPARISON: None. FINDINGS: There is mild degenerative arthrosis of the glenohumeral articulation. Normal acromioclavicular joint. Normal acromion. There is demineralization of the humerus and visualized osseous structures. The soft tissue structures are unremarkable. Normal visualized pulmonary apex. RAD/Shoulder min 2 Views IMPRESSION: Demineralization of the osseous structures with degenerative arthrosis, no demonstrated fracture Electronically Signed: Jorge Mcbride MD at 11:31 EDT , Service support ,
== END ==
PROVIDERS: Family Provider Nurse Practitioner; PCP Nurse Practitioner; Referring Provider Nurse Practitioner; Visit Provider Nurse Practitioner
DX: M19.011 Primary osteoarthritis, right shoulder (principal)
CPT/HCPCS: 73030

== ENCOUNTER → 2019-06-15 14:48 | Outpatient (CLI) | payer MEDICARE, OTHER, SELFPAY ==
--- NOTE | 2019-06-15 14:52 | RAD_ITS ---
STUDY: X-RAY - LEFT ANKLE REASON FOR EXAM: Female, 73 years old. Left ankle pain. TECHNIQUE: 3 view(s) of the ankle. COMPARISON: None. FINDINGS: There are diffuse osteopenic changes, otherwise normal visualized distal tibia and fibula. Normal medial and lateral malleoli. Normal tibiotalar articulation and ankle mortise. There is a mild plantar calcaneal spur and mild enthesophyte at the insertion site of Achilles tendon. Otherwise normal visualized talus and calcaneus. The visualized subtalar, talonavicular, calcaneocuboid and tarsal articulations are normal. No acute fracture seen. There is soft tissue signs of the distal calf and ankle. RAD/Ankle min 3 Views IMPRESSION: Diffuse osteopenia/osteoporosis with mild degenerative arthritis as described above. Soft tissue swelling along the ankle. Electronically Signed: Celeste Moon MD at 4:28 EST , Service support ,
== END ==
PROVIDERS: Family Provider Nurse Practitioner; PCP Nurse Practitioner; Referring Provider Nurse Practitioner; Visit Provider Nurse Practitioner
DX: M19.072 Primary osteoarthritis, left ankle and foot (principal)
CPT/HCPCS: 73610

== ENCOUNTER → 2019-06-26 13:27 | Outpatient (CLI) | payer MEDICARE, OTHER, SELFPAY ==
--- NOTE | 2019-06-26 13:37 | BD_ITS ---
STUDY: DUAL ENERGY X-RAY ABSORPTIOMETRY / DXA REASON FOR EXAM: Female, 73 years old. Early menopause. Loss of height. TECHNIQUE: Bone Mineral Density (BMD) measurements of both forearms were obtained. COMPARISON: None. FINDINGS: Right Forearm: g/cm2 (0.540) / T-score (-3.9) / Z-score (-1.9) Left Forearm: g/cm2 (0.503) / T-score (-4.3) / Z-score (-2.3) BD/Dexa Bone Density/Append Skel IMPRESSION: The patient is considered osteoporotic as outlined below according to World Amador Organization (WHO) criteria with a high fracture risk. Reference Information: The T-score is the number of standard deviations above or below the standard which is normal for young adults at their peak bone mineral density. The World Health Organization (WHO) interprets the T-scores as follows: Above -1 Normal bone density Between -1 and -2.5 Osteopenia Equal to / or below -2.5 Osteoporosis As a practical clinical guideline, osteopenia may be graded as follows: Mild -1 through -1.5 Moderate -1.6 through -2.0 Severe -2.1 through -2.4 The Z-score is the number of standard deviations above or below age-matched controls. A Z-score of less than -1.5 would be considered abnormal. References: 1. NIH Osteoporosis and Related Bone Diseases http://www.osteo.org 2. International Society for Clinical Densitometry http://www.iscd.org 3. National Osteoporosis Foundation http://www.nof.org Electronically Signed: Toñito Castellanos, at 9:09 EST , Service support ,
== END ==
PROVIDERS: Family Provider Nurse Practitioner; PCP Nurse Practitioner; Referring Provider Nurse Practitioner; Visit Provider Nurse Practitioner
DX: Z78.0 Asymptomatic menopausal state (principal)
CPT/HCPCS: 77081

== ENCOUNTER 2019-07-06 13:00 | Outpatient (RCR) | payer MEDICARE, OTHER, SELFPAY ==
--- NOTE | 2019-06-11 13:51 | HP.PTEVAL_ITS ---
Patient's Visit Information FRANCE NAM is a 73 year old F referred to Physical Therapy by CAROLEE Stock with a diagnosis of R shoulder pain,. Date of Evaluation: 06/11/19 Physical Therapist: Arnoldo Aguilar, DPT, OCS, CSCS - Visit Plan Frequency: 1-3x/week, start weekly Duration: 4-6 Weeks Plan: weekly(pt choice) for progression of ROM to strength ex R shoulder, AROM and phase 3 strength nect session if AROM improved from 70 degrees elevation to day. Will consider increase frequency to 3x/week for 4 weeks for US, MH, mobs and ROM/strength if not improving. - Subjective Findings: Uses 3 wh walker at home but is in a lot of pain L hip and LB currently being seen by pain doctor. Is here in PT for R shoulder which is hurting intermittently for 11 months in damp weather. Fell last July and getting up had her arm jerked. Calmed down for a while and then flared back up. Told doctor about it mroe recently. Pain is mostly R auppe rarm and lateral. Pain is 6/10 today and sometimes worse. No painfree days in a long time. Comfortable at rest but reaching with R UE is painful adn reaching backwards. Keeps her up at night if she moves it too much. Seees pain doctor and is on buterin patch for LB adn can't have anything else. Hard to cook , hard to get dressed painfully. Hard to shower as she ivanna;t stand and reach around which is hard on the shoulder. - Pain R shoulder Pain Intensity (Out of 10): 0 Pain Intensity Range: 0, 8 L LB Pain Intensity (Out of 10): 8 - Objective Pt struggles to transfer adn walk without assist due to back and leg pain which she is being treated for elsewhere. Needs assist. Hobbles 5 steps from oversize WC into eval room with assist. R shoulder comfortable at rest, hurts to elevate it. scap ROM is good. cervical ROM 45 rotations, 45 ext without pain today. hand and wrist and elbow AROM WFL and symmetrical. L shoulder aROM 150 flexion/abd, 50 ext rotation adn L5 IR. R shoulder slower and painful at 70 flexion and 85 abd, 40 ext rotation and PSIS IR. Tender to tocuh at supra insert adn biceps tendon. reflexes 2/3 bi and tri. Sensation WNL to gross light touch in UE. + HK adn + neer on R, - ext rotation lag test, - apprehension test albeit painful. PROM less painful R vs active in elevation adn to 135 degrees elevation. R shoulder elevation strength 3 adn painful, ext rotation 3 adn pain, IR 3+ adn pain., bi and ri are 4 and slight discomfort. L side hurts also with elevation 4- throughout. - Goals Goal 1:: R shoulder elevation without pain or hesitancy Goal Time Frame: 2-4 Weeks Goal 2:: Patient feel R shoulder pain 75% improved adn I in appropriate management with HEP Goal Time Frame: 4-6 Weeks Goal 3:: Reach for hair adn bra without pain R shoulder Goal Time Frame: 4-6 Weeks - Rehabilitation Potential Physical Therapy Diagnosis: R shoulder pain likely OA. Rehabilitation Potential: Good - Anticipated Interventions Patient/Client Instruction: Educate patient on: Condition, Plan of Care For the Purpose of:: To decrease pain, To increase ROM, To improve nutrient delivery to tissue, To improve ability of physical actions for home/community/work/leisure Therapeutic Exercise to Include: Strength training, Postural training, Flexibilty training, Passive ROM, Active ROM For the Purpose of:: To decrease pain, To increase ROM, To improve muscle performance and motor function, To increase tolerance to activity/condition/position, To improve ability of physical actions for home/community/work/leisure Thank you for the opportunity to evaluate your patient. For Medicare and Medicare HMO plans, please review the plan of care and approve it. It will need to be FAXED BACK to us at [phone] for Medicare purposes. For Medicare only, by signing this I certify the plan of care. Please let me know if there are questions or concerns regarding this plan of care. Physician Signature: Date:
--- NOTE | 2019-07-06 13:17 | HP.PTDCSUM ---
HP - PT D/C Summary It has been my pleasure to treat FRANCE NAM under orders from Radha Sebastian, BERTHA-C, for the diagnosis of R shoulder pain, for a total of 4 visit(s). Discharge Date: 07/06/19 Please see the following information for a summary of their discharge status. - Subjective Subjective: Shoulder is doing alot better. Knees hurt. Exercises goign OK with shoulders. I can sleep at night without interruption now.Ready to be on her own. - Pain R shoulder Pain Intensity (Out of 10): 0 L LB Pain Intensity (Out of 10): 1 - Overall Improvement % Improvement: 80 - Objective Objective/Function: 90 AROM R shoulder. strength 4- abd and flexion r shoulder and 4 bi, tri. 3+ ext rotation. Better motion and strength adn much more comfortable - Goals Goal 1:: R shoulder elevation without pain or hesitancy Goal Progress: Goal Met Goal 2:: Patient feel R shoulder pain 75% improved adn I in appropriate management with HEP Goal Progress: Goal Met Goal 3:: Reach for hair adn bra without pain R shoulder Goal Progress: Goal Met - Plan Plan: d/c to HEP - D/C Information Discharge Comments: Pt to jake via HEP. Contact doctor if pain returns. If there are questions or concerns regarding this patient's physical therapy, please feel free to call me at [phone]. Thank you for the referral of this patient. Sincerely, Arnoldo Aguilar, DPT, OCS, CSCS
== END 2019-07-06 19:00 | disposition home or self-care (01) ==
LOC: PT 13:00
PROVIDERS: Family Provider Nurse Practitioner; PCP Nurse Practitioner; Referring Provider Nurse Practitioner; Visit Provider Nurse Practitioner
DX: M25.511 Pain in right shoulder (principal)
CPT/HCPCS: 97110; 97162; 97530

== ENCOUNTER → 2020-02-22 12:48 | Outpatient (CLI) | payer MEDICARE, OTHER, SELFPAY ==
--- NOTE | 2020-02-22 12:54 | MRI_ITS ---
STUDY: MRI LUMBAR SPINE WITHOUT CONTRAST REASON FOR EXAM: Female, 74 years old. Severe back pain and intermittent TECHNIQUE: Standardized fat and water weighted pulse sequences were obtained in the sagittal and axial planes. COMPARISON: 07-17-18 FINDINGS: Lumbar spine is intact with multilevel endplate degenerative changes. There is grade 1 degenerative anterolisthesis of L4 on L5, less than 5 mm and stable in degree since priors. Paraspinous soft tissues are intact. BMI is severely elevated. This can be a contributor a fracture for chronic back pain. Conus medullaris terminates at L1-L2. Cauda equina is restricted at L4-L5. L4-L5 thecal sac is severely compressed by circumferential spondylosis with moderate to severe bilateral foraminal stenosis. Thecal sac is mildly to moderately compressed at L3-L4. There is multilevel mild to moderate foraminal stenosis. MRI/Spine Lumbar (Routine) IMPRESSION: 1. Severe L4-L5 spondylotic thecal sac stenosis. Neurosurgical referral is advised. Electronically Signed: Liya Dean, at 19:00 EDT Tel , Service support ,
== END ==
PROVIDERS: PCP Nurse Practitioner; Referring Provider Nurse Practitioner Family; Visit Provider Nurse Practitioner Family
DX: M51.36 Other intervertebral disc degeneration, lumbar region (principal)
CPT/HCPCS: 72148

== ENCOUNTER → 2020-06-23 13:26 | Outpatient (CLI) | payer MEDICARE, OTHER, SELFPAY ==
[2020-06-23 14:00] LABS: CREATININE FINGERSTICK 0.8 mg/dL (0.55-1.02)
--- NOTE | 2020-06-23 14:05 | CT_ITS ---
STUDY: CT ABDOMEN AND PELVIS WITH AND WITHOUT CONTRAST REASON FOR EXAM: Female, 74 years old. 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 IV 100mL Isovue-300 was administered. Sagittal and coronal images were reconstructed. Individualized dose optimization techniques were used for this CT. COMPARISON: 04 July 2018 FINDINGS: Examination is technically suboptimal due to patient''s body habitus resulting in elevated image noise. Diagnostic information is available. Osseous assessment is suboptimal and reliability of spinal diagnosis is diminished. The visualized lung bases are unremarkable. The visualized portions of the heart are within normal limits. Liver is severely enlarged and moderately cirrhotic. Spleen is severely enlarged. There is no ascites. Gallbladder is removed.. Pancreas is normal. There is a 1.5 cm stable benign right adrenal adenoma. This does not require further diagnostic imaging. Left adrenal is normal. There is a multilocular benign 5 cm right renal cyst, stable since 2 years prior. This does not require further diagnostic imaging. There are no solid renal lesions. Left kidney is normal. There are no urinary calculi or hydronephrosis. Normal visualized stomach. Normal small intestine. Normal colon. The appendix is visualized and appears normal. Normal abdominal aorta. Normal inferior vena cava. Normal retroperitoneum. Normal urinary bladder. Normal abdominal wall. There is probably osteopenia/osteoporosis. There is grade 1 degenerative ventral listhesis of L4 and L5 with circumferential spondylosis and severe thecal sac and foraminal stenosis. There is chronic compression deformity of T11 superior endplate without acute fracture. Appearance is stable since [address]/CT Abd/Pelvis W/WO Contrast IMPRESSION: 1. No renal solid mass/neoplasm. 2. Benign right renal cyst, not requiring further diagnostic imaging. 3. Moderate cirrhosis, severe hepatosplenomegaly. 4. L4-L5 severe spondylotic thecal sac stenosis. Electronically Signed: Liya Dean, at 21:30 EST Tel , Service support ,
== END ==
PROVIDERS: PCP Nurse Practitioner; Referring Provider Nurse Practitioner Adult Health; Visit Provider Nurse Practitioner Adult Health
DX: D41.00 Neoplasm of uncertain behavior of unspecified kidney (principal); R16.2 Hepatomegaly with splenomegaly, not elsewhere classified; M48.061 Spinal stenosis, lumbar region without neurogenic claudication; K74.60 Unspecified cirrhosis of liver; N28.1 Cyst of kidney, acquired
CPT/HCPCS: 74178; Q9967

== ENCOUNTER 2020-09-10 09:49 | Day surgery (SDC) | payer MEDICARE, OTHER, SELFPAY ==
[2020-09-10] VITALS (7 sets, daily range): BP systolic 88–131; BP diastolic 44–54; PULSE 58–75; RESP 16; TEMP 36.1–36.8; O2SAT 95–100; BMI 59.8
--- NOTE | 2020-09-10 07:17 | PCM.HP.STD ---
Problem List (1) Urge incontinence Status: Acute History of Present Illness Date of Admission: 09/10/20 Chief Complaint: Urge incontinence The patient is a 74 year old female who presents to the hospital for stage I InterStim therapy she has a history of severe urgency and urge incontinence she is tried at least 2 medical therapies with Myrbetriq and oxybutynin in the past with no improvement she is having wet accidents during the nighttime and during the daytime frequency and urgency we discussed options of management for third line therapy including Botox therapy and InterStim therapy. Today we will do a stage I InterStim therapy trial. 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) Lumbosacral spondylosis (Chronic) Allergies erythromycin base Allergy (Verified 09/03/20 11:08) Rash iodine Allergy (Verified 09/03/20 11:08) Rash Penicillins [PCN] Allergy (Verified 09/03/20 11:08) Rash Sulfa (Sulfonamide Antibiotics) Allergy (Verified 09/03/20 11:08) Rash Home Medications: Ambulatory Orders Medication Instructions Recorded Cholecalciferol (VIT D3) [Vitamin 3,000 unit PO DAILY 04/15/17 D] Hydrochlorothiazide [Hctz] 25 mg PO PRN PRN 04/15/17 Lisinopril [Zestril] 20 mg PO DAILY 04/15/17 Multivitamins,Therapeutic 1 tablet PO DAILY 04/15/17 [Multivitamin] Venlafaxine HCl [Effexor] 75 mg PO DAILY PRN 04/15/17 Ascorbic Acid [Vitamin C] 250 mg PO DAILY 09/03/20 Ezetimibe [Zetia] 10 mg PO DAILY 09/03/20 Ferrous Sulfate 325 mg PO BIDCM 09/03/20 Surgical History: no surgical history Smoking Status: Never smoker Tobacco Use: Non-smoker Review of Systems Constitutional: Denies: Chills, Fever, Weight Change HEENT: Denies: Head Aches, Sinus Congestion, Sinus Drainage Cardiovascular: Denies: Chest Pain, Palpitations Respiratory: Denies: Cough, Shortness of breath at rest, Sputum production Gastrointestinal: Denies: Abdominal Pain, Nausea, Vomiting Genitourinary: Denies: Dysuria Musculoskeletal: Denies: Joint Pain, Joint Tenderness Skin: Denies: Rash, Wounds Neurological: Denies: Numbness, Tingling, Focal weakness Psychiatric: Denies: Anxiety, Depression, Homicidal Ideations, Suicidal Ideations Hematologic/ Lymphatic: Denies: Easy Bruising, Easy Bleeding VTE Information - Inpt Only VTE Present on Admission: No VTE Mechan Device Prophylaxis: SCD's - Physical Exam Vitals/I&O's: Body Mass Index (BMI) 57.0 General: Alert, Oriented x3, Cooperative HEENT: Atraumatic, PERRLA, EOMI, Normocephalic Neck: Supple, No JVD, Negative Carotid Bruits Lungs: Clear to auscultation, Normal air movement Cardiovascular: Regular rate, No murmurs Abdomen: Bowel Sounds Present, Soft, Non Tender Extremities: No edema, Capillary Refill Less than 3 Seconds Skin: No rashes, No breakdown Musculoskeletal: No Tenderness to Palpation of Joints or Extremities Neurological: Cranial nerves II-XII grossly intact Psych/Mental Status: Normal Affect, Appropriate Current Medications Cefazolin Sodium 2 gm/ Sodium (Chloride) 110 mls @ 150 mls/hr IV PREOP ONE Stop: 09/10/20 12:38 Assessment/Plan All Active Problems Urge incontinence (Acute) 74-year-old female with history of urge incontinence plan to proceed with stage I InterStim therapy.
[2020-09-10] MEDS: Lactated Ringers 1,000 ML 100 ML IV (10:34)
--- NOTE | 2020-09-10 11:55 | RAD_ITS ---
STUDY: X-RAY - PELVIS REASON FOR EXAM: Female, 74 years old. INTERSTIM THERAPY 1 TECHNIQUE: One view of the pelvis was obtained. COMPARISON: None. FINDINGS: Intraoperative imaging provided for InterStim placement. The tip of the electrode is seen overlying the superior posterior aspect of the left hemipelvis. RAD/Pelvis 1 or 2 Views IMPRESSION: The tip of the electrode is overlying the superior posterior aspect of the left hemipelvis. Electronically Signed: Toñito Castelalnos MD at 15:11 EST , Service support ,
[2020-09-10] MEDS: Cefazolin 2 GM in 0.9% Normal Saline 100 ML IV (12:30)
[2020-09-10] MEDS: Lidocaine 1% (20 ml mdv) 20 ML Vial (12:49)
--- NOTE | 2020-09-10 13:19 | PCM.DC.URO ---
Discharge Diet: Light diet - advance as tolerated Discharge Activity: May not drive while taking narcotic pain medications., May Shower May shower in (days): 1 Lifting Restrictions: no bath tubs or hot tubs, no heavy lifting Allergies/Adverse Reactions: Allergies erythromycin base Allergy (Verified 09/10/20 09:59) Rash iodine Allergy (Verified 09/10/20 09:59) Rash Penicillins [PCN] Allergy (Verified 09/10/20 09:59) Rash Sulfa (Sulfonamide Antibiotics) Allergy (Verified 09/10/20 09:59) Rash Medications to take at Discharge Cholecalciferol (VIT D3) [Vitamin D] 3,000 unit PO DAILY 04/15/17 Hydrochlorothiazide [Hctz] 25 mg PO PRN PRN 04/15/17 Lisinopril [Zestril] 20 mg PO DAILY 04/15/17 Multivitamins,Therapeutic [Multivitamin] 1 tablet PO DAILY 04/15/17 Venlafaxine HCl [Effexor] 75 mg PO DAILY PRN 04/15/17 Ascorbic Acid [Vitamin C] 250 mg PO DAILY 09/03/20 Ezetimibe [Zetia] 10 mg PO DAILY 09/03/20 Ferrous Sulfate 325 mg PO BIDCM 09/03/20 Cephalexin [Keflex] 500 mg PO Q8 #15 cap 09/10/20 Hydrocodone Bitart/Apap 5-325 [Raphine 5MG-325MG] 1 tablet PO Q4H PRN PRN 7 Days #14 tablet 09/10/20 The following prescriptions were given: Cephalexin [Keflex] 500 mg PO Q8 #15 cap Transmission Status: Pending to [facility] Hydrocodone Bitart/Apap 5-325 [Raphine 5MG-325MG] 1 tablet PO Q4H PRN PRN 7 Days #14 tablet PRN Reason: Pain Transmission Status: Sent to [facility] Primary Care Physician: Radha Sebastian SENIOR MANAGEMENT CONSULTANT, SENIOR MANAGEMENT CONSULTANT-C [Primary Care Provider] - Test Results: Test results from this visit will be discussed in further detail at your follow-up appointment, if applicable. Please Follow Up With: Antoni Boone MD When: 1 week, please call to make an appointment.
--- NOTE | 2020-09-10 13:20 | OP.PCM_ITS ---
Problem List (1) Urge incontinence Status: Acute Report of Operation Date of Procedure: 09/10/20 Pre-Operative Diagnosis: Urge incontinence Post-Operative Diagnosis: Same Surgery/Procedure Performed:: InterStim placement stage I therapy Description of Surgical Findings:: 74-year-old female fairly obese female with a BMI of 60, comes in today for a stage I InterStim therapy placement. She is failed medical therapy for her bladder control and has severe urge incontinence. When she has the urge to go to the bathroom she can hold it and she is tried multiple medications with no improvement in her bladder control she is tried oxybutynin and she is tried Myrbetriq again both of these have failed. We talked about the options of management including InterStim therapy, peripheral neuromodulation therapy, and Botox therapy. She elected to go InterStim therapy given her size we can do a staged implant Patient was taken back to the operating room after smooth induction of anesthes ia she was placed facedown on the operating room table made sure all her pressure points were padded the lower sacrum and tailbone area was prepped and draped in usual sterile fashion we then came in with fluoroscopy identified the 2 spinous process in the pelvis I then put the lead between the 2 and then I marked out the medial edge of the sacrum where the S3 foramen should be. I then went to centimeters above this we used a first a short needle was able to pop into the S3 foramen however it was too short so we switched over the long needle in the using the long needle was able to get in the S3 foramen we checked it checked on fluoroscopy. To be the correct position we then checked and she had good aiden and toe and then advanced a stylette through and then we advanced the lead through the stylette until there was one above and 2 below tracing over the nerve so there was one lead a above the posterior plate and 3 leads below the posterior plate the sacrum. We then stimulated 0, 1, 2, 3 and all 3 sites had good aiden and toe response we made sure that there was no ankle rotation. Took a very low amount of voltage to get a aiden response and toe response. After dropping in the lead we then tunneled the lead to a pocket we added a temporary extension and then tunneled the extent for extension to an exit site superior to the original entrance site. We then bandages were placed we save the images on fluoroscopy it was successful stage I implant will see if she gets a good response and if she does then we will proceed with stage II implant of the generator. We will see the patient a week for follow-up. Type of Anesthesia:: Local MAC - Admit VTE Documentation VTE Present on Admission: No VTE Mechan Device Prophylaxis: SCD's
== END 2020-09-10 14:32 | disposition home or self-care (01) ==
LOC: SDC 09:52 → AC 09:53
PROVIDERS: PCP Nurse Practitioner; Referring Provider Urology; Visit Provider Urology
PROC: (CPT 64581; principal; 2020-09-10 11:45)
DX: N39.46 Mixed incontinence (principal); N32.81 Overactive bladder; I10 Essential (primary) hypertension; E78.00 Pure hypercholesterolemia, unspecified; D64.9 Anemia, unspecified; E66.01 Morbid (severe) obesity due to excess calories; Z68.44 Body mass index [BMI] 60.0-69.9, adult; Z99.3 Dependence on wheelchair; Z79.899 Other long term (current) drug therapy
CPT/HCPCS: 64581; 72170; 76000; J7120; C1820; J2405

== ENCOUNTER 2020-09-26 11:51 | Day surgery (SDC) | payer MEDICARE, OTHER, SELFPAY ==
[2020-09-10 10:28] VITALS: BMI 59.8
[2020-09-26] VITALS (9 sets, daily range): BP systolic 106–134; BP diastolic 46–73; PULSE 66–77; RESP 16; TEMP 36.3–37.1; O2SAT 96–100; BMI 59.3
[2020-09-26] MEDS: Lactated Ringers 1,000 ML 100 ML IV ×2 (13:05→14:31)
[2020-09-26] MEDS: Lidocaine 1% (30 ml sdv) 30 ML Vial (14:03)
--- NOTE | 2020-09-26 14:10 | PCM.HP.STD ---
History of Present Illness Date of Admission: 09/26/20 Chief Complaint: Urge incontinence I status post 1 InterStim The patient is a 74 year old female with overactive bladder status post stage I implant did really well begin to go for stage II implant today. Greater than 50% improvement in symptoms. 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) Lumbosacral spondylosis (Chronic) Allergies erythromycin base Allergy (Verified 09/23/20 08:24) Rash iodine Allergy (Verified 09/23/20 08:24) Rash Penicillins [PCN] Allergy (Verified 09/23/20 08:24) Rash Sulfa (Sulfonamide Antibiotics) Allergy (Verified 09/23/20 08:24) Rash Home Medications: Ambulatory Orders Medication Instructions Recorded Cholecalciferol (VIT D3) [Vitamin 3,000 unit PO DAILY 04/15/17 D] Hydrochlorothiazide [Hctz] 25 mg PO PRN PRN 04/15/17 Lisinopril [Zestril] 20 mg PO DAILY 04/15/17 Multivitamins,Therapeutic 1 tablet PO DAILY 04/15/17 [Multivitamin] Venlafaxine HCl [Effexor] 75 mg PO DAILY PRN 04/15/17 Ascorbic Acid [Vitamin C] 250 mg PO DAILY 09/03/20 Ezetimibe [Zetia] 10 mg PO DAILY 09/03/20 Ferrous Sulfate 325 mg PO BIDCM 09/03/20 Cephalexin [Keflex] 500 mg PO Q8 #21 cap 09/26/20 Hydrocodone Bitart/Apap 5-325 1 tablet PO Q4H PRN PRN 7 Days #10 09/26/20 [[place] 5MG-325MG] tablet Surgical History: no surgical history Smoking Status: Never smoker Tobacco Use: Non-smoker Review of Systems Constitutional: Denies: Chills, Fever, Weight Change HEENT: Denies: Head Aches, Sinus Congestion, Sinus Drainage Cardiovascular: Denies: Chest Pain, Palpitations Respiratory: Denies: Cough, Shortness of breath at rest, Sputum production Gastrointestinal: Denies: Abdominal Pain, Nausea, Vomiting Genitourinary: Denies: Dysuria Musculoskeletal: Denies: Joint Pain, Joint Tenderness Skin: Denies: Rash, Wounds Neurological: Denies: Numbness, Tingling, Focal weakness Psychiatric: Denies: Anxiety, Depression, Homicidal Ideations, Suicidal Ideations Hematologic/ Lymphatic: Denies: Easy Bruising, Easy Bleeding VTE Information - Inpt Only VTE Present on Admission: No - Physical Exam Vitals/I&O's: Vital Signs Temp Pulse Resp BP Pulse Ox 98.8 F 67 16 106/46 L 98 09/26/20 12:23 09/26/20 12:23 09/26/20 12:23 09/26/20 12:23 09/26/20 12:23 Oxygen Delivery Method Room Air Weight: 137.9 kg Body Mass Index (BMI) 59.3 General: Alert, Oriented x3, Cooperative HEENT: Atraumatic, PERRLA, EOMI, Normocephalic Neck: Supple, No JVD, Negative Carotid Bruits Lungs: Clear to auscultation, Normal air movement Cardiovascular: Regular rate, No murmurs Abdomen: Bowel Sounds Present, Soft, Non Tender Extremities: No edema, Capillary Refill Less than 3 Seconds Skin: No rashes, No breakdown Musculoskeletal: No Tenderness to Palpation of Joints or Extremities Neurological: Cranial nerves II-XII grossly intact Psych/Mental Status: Normal Affect, Appropriate Microbiology Past 72 Hours 09/25/20 12:30 Interface Orders SARS-CoV-2 Antigen (Rapid) - Final Current Medications Cefazolin Sodium 3 gm/ Sodium (Chloride) 115 mls @ 150 mls/hr IV PREOP ONE Stop: 09/26/20 14:50 Last Admin: 09/26/20 13:48 Dose: 150 mls/hr Documented by: Lactated Ringer's () 1,000 mls @ 100 mls/hr IV .Q10H VIVEK Last Admin: 09/26/20 13:05 Dose: 100 mls/hr Documented by: Assessment/Plan All Active Problems Urge incontinence (Acute) 74-year-old female with overactive bladder urge incontinence status post stage I implant can proceed with stage II implant.
--- NOTE | 2020-09-26 14:18 | DCINST_ITS ---
Discharge Diet: No Restrictions Discharge Activity: Return to Normal Activity, May Not Drive - for 2 days. Additional Activity Instructions:: Please be aware that pain medications may cause nausea. You should typically eat light foods as you take your pain medication. Pain medication may cause constipation, if this is a problem for you, please discuss with your doctor. Allergies/Adverse Reactions: Allergies erythromycin base Allergy (Verified 09/23/20 08:24) Rash iodine Allergy (Verified 09/23/20 08:24) Rash Penicillins [PCN] Allergy (Verified 09/23/20 08:24) Rash Sulfa (Sulfonamide Antibiotics) Allergy (Verified 09/23/20 08:24) Rash Medications to take at Discharge Cholecalciferol (VIT D3) [Vitamin D] 3,000 unit PO DAILY 04/15/17 Hydrochlorothiazide [Hctz] 25 mg PO PRN PRN 04/15/17 Lisinopril [Zestril] 20 mg PO DAILY 04/15/17 Multivitamins,Therapeutic [Multivitamin] 1 tablet PO DAILY 04/15/17 Venlafaxine HCl [Effexor] 75 mg PO DAILY PRN 04/15/17 Ascorbic Acid [Vitamin C] 250 mg PO DAILY 09/03/20 Ezetimibe [Zetia] 10 mg PO DAILY 09/03/20 Ferrous Sulfate 325 mg PO BIDCM 09/03/20 Cephalexin [Keflex] 500 mg PO Q8 #21 cap 09/26/20 Hydrocodone Bitart/Apap 5-325 [[place] 5MG-325MG] 1 tablet PO Q4H PRN PRN 7 Days #10 tablet 09/26/20 The following prescriptions were given: Cephalexin [Keflex] 500 mg PO Q8 #21 cap Transmission Status: Pending to [facility] Hydrocodone Bitart/Apap 5-325 [[place] 5MG-325MG] 1 tablet PO Q4H PRN PRN 7 Days #10 tablet PRN Reason: Pain Transmission Status: Sent to [facility] Primary Care Physician: Radha Sebastian CONSULTING ENGINEER, CONSULTING ENGINEER-C [Primary Care Provider] - Test Results: Test results from this visit will be discussed in further detail at your follow- up appointment, if applicable. Please Follow Up With: Antoni Boone MD When: in 2 weeks, please call to make an appointment.
--- NOTE | 2020-09-26 14:20 | OP.PCM_ITS ---
Report of Operation Date of Procedure: 09/26/20 Pre-Operative Diagnosis: Overactive bladder and urge incontinence Post-Operative Diagnosis: Same Surgery/Procedure Performed:: InterStim therapy stage II implant Description of Surgical Findings:: 74-year-old female with a history of overactive bladder was failed conservative medical therapy presents today for stage II implant she underwent stage I InterStim therapy implant about 2 weeks ago had a really good response with more than 50% improvement in her dietary symptoms. She did complete a voiding diary. She also had a prior voiding diary as a baseline. She also reports subjectively that she is very happy with the response and better control of the bladder. And she wants to proceed with stage II implant. Patient was taken back to the operating room after smooth induction of general anesthesia she was placed upon the table we found a pocket of the extension of the lead took off the bandages prepped and draped the pocket. Made an incision to open up the pocket found the extension lead cut the cord on the extension and then the nurse from the other side pulled the extension cut extension off the InterStim lead. Then we unscrewed the bolt and remove the boot from the InterS karena lead and then we cleaned the lead completely open up the pocket for the placement of the device and then once the pocket was opened up then I attached the device to the InterStim lead we attached the generator to the InterStim lead then we put the generator in the pocket and then we checked for impedance and impedance was good with very low impedance on all leads sites. We then closed the pocket over the generator with in 2 layers with a interrupted 3-0 Vicryl's. And then closed the skin with a continuous 4-0 Monocryl. Dressings were then placed on the wound patient anesthetic was versed taken back to PACU in good condition will she will follow-up in 2 weeks for wound check and a follow-up. And should be given prescription for pain medicine and for antibiotics. Type of Anesthesia:: General Drains: none - Admit VTE Documentation VTE Present on Admission: No VTE Mechan Device Prophylaxis: SCD's
== END 2020-09-26 16:28 | disposition home or self-care (01) ==
LOC: SDC 11:52 → AC 11:53
PROVIDERS: PCP Nurse Practitioner; Referring Provider Urology; Visit Provider Urology
PROC: (CPT 64590; principal; 2020-09-26 14:05)
DX: N32.81 Overactive bladder (principal); N39.41 Urge incontinence; I10 Essential (primary) hypertension; E78.00 Pure hypercholesterolemia, unspecified; E66.9 Obesity, unspecified; Z68.43 Body mass index [BMI] 50.0-59.9, adult; Z79.899 Other long term (current) drug therapy; Z20.822 Contact with and (suspected) exposure to COVID-19
CPT/HCPCS: 64590; 87426; C9803; J7120; C1767; J2405

== ENCOUNTER 2021-10-05 11:15 | Inpatient (IN) | payer MEDICARE, OTHER, SELFPAY ==
[2021-10-05 11:17] VITALS: BP 108/59; PULSE 77; RESP 18; TEMP 36.6; O2SAT 98; BMI 62.2
[2021-10-05 11:21] VITALS: BP 108/59; PULSE 77; RESP 18; TEMP 36.6; O2SAT 98
--- NOTE | 2021-10-05 11:44 | CT_ITS ---
STUDY: CT FACIAL BONES WITHOUT CONTRAST REASON FOR EXAM: Female, 75 years old. Facial trauma RADIATION DOSAGE (If Supplied By Facility): CTDIvol = ( 29.38 ) mGy, DLP = ( 562.15 ) mGycm TECHNIQUE: The patient was scanned in a multi detector CT scanner. Sagittal and coronal images were reconstructed. Individualized dose optimization techniques were used for this CT. COMPARISON: None. FINDINGS: There is evidence of right preorbital soft tissue swelling/ecchymosis. Normal orbital sandhu and orbital contents. Normal nasal bones and anterior nasal spine. Normal facial bones. There is no demonstrated fracture. Normal visualized paranasal sinuses. CT/Sinus/Facial Bone IMPRESSION: Right preorbital soft tissue swelling. Electronically Signed: Toñito Castellanos MD at 12:46 EST ,
--- NOTE | 2021-10-05 11:44 | CT_ITS ---
STUDY: CT BRAIN WITHOUT CONTRAST REASON FOR EXAM: Female, 75 years old. Head injury due to a fall. RADIATION DOSAGE (If Supplied By Facility): CTDIvol = ( 44.99 ) mGy, DLP = ( 812.98 ) mGycm TECHNIQUE: Transaxial CT imaging of the brain was performed without administration of intravenous contrast material. Individualized dose optimization techniques were used for this CT. COMPARISON: No relevant priors. FINDINGS: Normal soft tissue structures. There is hyperostosis frontalis internus. There is mild cerebral atrophy with widening of the extra-axial spaces and ventricular dilatation. Normal white matter tracts of the cerebral hemispheres. Normal basal ganglia and thalami. Normal brainstem. Normal cerebellum. There is no intracranial hemorrhage. There are no findings of an acute ischemic infarction. Atherosclerotic calcification of the cavernous portions of the internal carotid arteries bilaterally. Normal visualized paranasal sinuses. CT/Brain/Head without Contrast IMPRESSION: Chronic involutional changes of the brain. Electronically Signed: Toñito Castellanos MD at 12:43 EST ,
--- NOTE | 2021-10-05 11:44 | EKG12_ITS ---
Test Reason : FALL Blood Pressure : / mmHG Vent. Rate : 079 BPM Atrial Rate : 079 BPM P-R Int : 224 ms QRS Dur : 076 ms QT Int : 410 ms P-R-T Axes : 062 -16 042 degrees QTc Int : 470 ms Sinus rhythm with 1st degree A-V block Low voltage QRS Nonspecific ST and T wave abnormality Abnormal ECG Confirmed by TUNDE DAI, JACKY ([id number]), social media editor ILENE BRODY ([id number]) on 10/06/2021 9:56:01 AM Referred By: LEANDRO Confirmed By:JACKY GRIFFITHS MD
--- NOTE | 2021-10-05 11:47 | RAD_ITS ---
STUDY: X-RAY - PELVIS REASON FOR EXAM: Female, 75 years old. Left leg pain following a fall. TECHNIQUE: One view of the pelvis was obtained. COMPARISON: Comparison is made with prior examination dated 04/19/2018. FINDINGS: There is a non-specific bowel gas pattern. A right-sided InterStim is visualized. Normal bilateral iliac wings, sacroiliac joints and visualized sacrum. Normal visualized bilateral superior and inferior pubic rami. Normal pubic symphysis. Normal ischial tuberosities. Normal visualized right femoral head. There is osteoarthritic spur formation of the right acetabular rim. There is mild articular joint space narrowing of the right hip. Normal visualized left femoral head. There is osteoarthritic spur formation of the left acetabular rim. There is mild articular joint space narrowing of the left hip. RAD/Pelvis 1 or 2 Views IMPRESSION: Osteoarthritis of both hip joints. No acute fracture is seen. Electronically Signed: Toñito Castellanos MD at 12:48 EST ,
[2021-10-05] MEDS: 0.9% Normal Saline 1,000 ML 999 ML IV (12:05)
--- NOTE | 2021-10-05 12:11 | RAD_ITS ---
STUDY: X-RAY CHEST REASON FOR EXAM: Female, 75 years old. Falls TECHNIQUE: Single AP portable view of the chest. COMPARISON: None. FINDINGS: Surgical clips are seen in the right axillary region. Nondisplaced fracture of the anterolateral aspect of the right eighth and ninth ribs. There is blunting of the right costophrenic angle. Normal size heart. Normal mediastinum and josefina. Normal visualized pulmonary arteries. There is atherosclerotic tortuosity of the aortic arch and descending thoracic aorta. There is a levoscoliosis of the thoracic spine. There is no demonstrated abnormality of the visualized soft tissue structures of the upper abdomen. RAD/Chest 1 View (Portable) IMPRESSION: Nondisplaced fractures of the right eighth and ninth ribs anterolaterally. Blunting of the right costophrenic angle. Electronically Signed: Toñito Castellanos MD at 12:47 EST ,
[2021-10-05 12:16] LABS: Absolute Lymphocyte Count 0.69 X10^3/uL (0.83-4.51); Absolute Neutrophil Count 6.6 X10^3/uL (2.0-7.7); Basophil# 0.01 X10^3/uL; Basophil% 0.1 % (0-1); Hematocrit 38.4 % (37-47); Hemoglobin 12.4 g/dL (12.0-15.0); Lymphocyte # 0.69 X10^3/ul (0.83-4.51); Lymphocyte % 8.8 % (19-41); Mean Corp Hgb Conc 32.3 g/dL (32-36); Mean Corpuscular Hgb 35.2 pg (27.0-32.0); Mean Corpuscular Volume 109.1 fL (81-99); Mean Platelet Vol. 9.6 fl (6.2-12.0); Monocyte# 0.51 X10^3/uL; Monocyte% 6.5 % (0-10); NRBC Flagged by Analyzer 0 % (0-5); Neutrophil % 84.1 % (47-70); POSITIVE COUNT YES; Platelet Count 71 K/mm3 (150-450); RBC Distribution Width CV 15.4 % (11.6-14.6); RBC Distribution Width SD 60.5 fl (35.1-43.9); Red Blood Count 3.52 M/mm3 (4.2-5.4); White Blood Count 7.9 K/mm3 (4.4-11.0)
[2021-10-05 12:24] VITALS: BP 140/78; PULSE 77; RESP 18; O2SAT 97
--- NOTE | 2021-10-05 12:24 | EX.ED.GENINJ ---
HPI History of Present Illness Chief Complaint: Fall Informant: patient Narrative Narrative: Patient is a 75-year-old female with history of obesity, debility, chronic back pain and hypertension presenting for evaluation after a fall. Patient had a fall around 9 PM last night. She states she tripped and fell. She was stuck in the bathroom all night. She did hit her head. Patient and she had a similar fall 2 weeks ago with injury to her right leg. She been placing bacitracin on the wound. She states she has been able to leave her house in 7-month because she cannot get down the steps. She was not evaluated after her fall 2 weeks ago, she states EMS came to her house but she decided to not be transferred. Patient has pain all over. She has swelling and pain of her right eye area as well as blisters on her right shoulder and left lower leg. No other complaints at this time. Patient is not on any blood thinners. [facility] Medical History (Updated 10/05/21 @ 15:27 by Mari Collier) Breast cancer Cholecystectomy planned Chronic pain GERD (gastroesophageal reflux disease) Gout Hypertension Kidney stones Lupus Migraines Morbidly obese Non-smoker Osteoporosis Rheumatoid arthritis Sinus pressure Sleep apnea Home Medications cholecalciferol (vitamin D3) [Vitamin D] 3,000 unit PO DAILY 04/15/17 [History Last Taken 10/05/21] lisinopril 20 mg PO Q3D 04/15/17 [History Last Taken 10/04/21] venlafaxine 75 mg PO DAILY PRN 04/15/17 [History Last Taken Unknown] ascorbic acid (vitamin C) 250 mg PO DAILY 09/03/20 [History Last Taken 10/04/21] ferrous sulfate 325 mg PO Q2D 09/03/20 [History Last Taken 10/04/21] bacitracin 1 applic TOPICAL TID 10/05/21 [History Last Taken 10/04/21] nystatin 1 applic TOPICAL BIDCM PRN 10/05/21 [History Last Taken 10/04/21] Allergy/AdvReac Type Severity Reaction Status Date / Time erythromycin base Allergy Rash Verified 10/05/21 11:21 iodine Allergy Rash Verified 10/05/21 11:21 Penicillins [PCN] Allergy Rash Verified 10/05/21 11:21 Sulfa (Sulfonamide Allergy Rash Verified 10/05/21 11:21 Antibiotics) Surgical History (Updated 10/05/21 @ 11:24 by Martínez Moreno) H/O hernia repair H/O: hysterectomy History of tonsillectomy Social History Smoking Status: Never smoker ROS ROS ED Constitutional Constitutional ED: Denies chills or fever(s) Eyes Eyes: Reports other Details: right eyelid injury and swelling ENT ENT ED: Denies ear pain, rhinorrhea or sore throat Cardiovascular Cardiovascular: Reports chest pain and other Details: right chest wall pain Respiratory/Chest Respiratory/Chest: Denies cough or dyspnea Gastrointestinal Gastrointestinal: Denies abdominal pain, nausea or vomiting Genitourinary Genitourinary ED: Denies dysuria Musculoskeletal Musculoskeletal: Reports arthralgias and myalgias Integumentary Reports Abrasions and other Details: blisters on extremities ; Denies rash Neurologic Neurologic: Reports weakness; Denies headache(s) Psychiatric Psychiatric: Denies depression EXAM Physical Exam Const Vital Signs: 10/05/21 11:17 10/05/21 11:21 10/05/21 11:30 Temperature 97.8 F 97.9 F Temperature Source Temporal Temporal Pulse Rate 77 77 Respiratory Rate 18 18 Respiratory Effort Normal Respiratory Depth Normal Respiratory Pattern Normal Blood Pressure 108/59 L 108/59 L Blood Pressure Mean 75 75 Pulse Ox 98 98 Oxygen Delivery Method Room Air Room Air Room Air 10/05/21 12:24 10/05/21 13:07 Temperature Temperature Source Pulse Rate 77 87 Respiratory Rate 18 16 Respiratory Effort Respiratory Depth Respiratory Pattern Blood Pressure 140/78 H 147/82 H Blood Pressure Mean 98 103 Pulse Ox 97 99 Oxygen Delivery Method Room Air Positive well nourished, well developed, obese and unkempt General Appearance ED: unkempt and well developed Nutritional Appearance: obese HEENT Reports TM's clear HEENT Narrative: Dry mucosal membranes. trauma Nose: Negative for septum abnormal Tympanic Membrane ED: Yes TM's clear Eyes PERRL and EOMs intact bilaterally General Eye ED: Yes other Other Details: Right periorbital ecchymosis and edema present. I am able to manually retract her eyelids and the globe appears normal. Neck full ROM General: Negative for tenderness Chest Wall inspection of chest normal Chest Narrative: Right chest wall tenderness Resp normal respiratory effort and clear to auscultation bilaterally Cardio regular rhythm and no murmurs Rate: regular rate GI normal to inspection, nondistended, normoactive bowel sounds Extremity General Extremety ED: Yes edema and tenderness; Negative for deformity General Extremity: edema; Negative for deformity Neuro oriented x3, moves all extremities and no focal motor deficits Sensorium / Orientation: alert Psych mental status grossly normal Appearance: unkempt Skin Skin Narrative: Ecchymosis over forehead and right periorbital area. Chronic wound of bilateral inguinal folds. No associated cellulitic changes. Appears to be pressure blister over the right shoulder and left lower leg. Negative Nikolsky sign. MDM MDM MDM Narrative Medical decision making narrative: Patient evaluated after she fell yesterday and been on the ground since. Patient has what looks like traumatic blisters on her extremities. He did not appear infected. She does not appear dehydrated with very dry mucosal membranes. Her creatinine is slightly above baseline at 1.07 however she has a significantly elevated CPK at 4794. CBC unremarkable. Urinalysis concerning for infection and she has positive nitrates, 10-25 white blood cells, 25-50 red blood cells and 2+ bacteria. She urine culture sent and she started on IV Rocephin. She is given IV fluids. Head CT does not show any acute fracture and CT of the face only show soft tissue swelling. No signs of entrapment of the eye muscle on physical exam. Chest x-ray does show nondisplaced right ninth and 10th rib fractures. Patient is offered pain medication multiple times but she is very nervous about taking it. She eventually consents to 2 doses of 2 mg of IV morphine. She is also given IV Zofran to go along with this. She will be admitted for debility, rhabdomyolysis and wound care as well as urinary tract infection. Lab Data Attestation: I reviewed the patient's lab results. Labs: Laboratory Results - last 24 hr 10/05/21 10/05/21 10/05/21 11:28 11:28 12:40 WBC 7.9 RBC 3.52 L Hgb 12.4 Hct 38.4 MCV 109.1 H MCH 35.2 H MCHC 32.3 RDW Std Deviation 60.5 H RDW Coeff of Pako 15.4 H Plt Count 71 L MPV 9.6 Immature Gran % (Auto) 0.500 Neut % (Auto) 84.1 H Lymph % (Auto) 8.8 L Richardson % (Auto) 6.5 Eos % (Auto) 0.0 Baso % (Auto) 0.1 Absolute Neuts (auto) 6.6 Absolute Lymphs (auto) 0.69 L Nucleated RBC % 0 Sodium 143 Potassium 4.1 Chloride 114 H Carbon Dioxide 25.0 Anion Gap 4 L BUN 27 H Creatinine 1.07 H Estim Creat Clear Calc 33.13 Est GFR (MDRD) Af Amer 64 Est GFR (MDRD) Non-Af 53 L BUN/Creatinine Ratio 25.2 H Glucose 143 H Calcium 9.3 Total Bilirubin 1.30 H AST 201 H ALT 49 Alkaline Phosphatase 119 H Total Creatine Kinase 4794 H C-React Prot Ext Range 24.30 H Total Protein 6.3 L Albumin 2.2 L Globulin 4.1 Albumin/Globulin Ratio 0.5 L Urine Color Yellow Urine Clarity Clear Urine pH 5.0 Ur Specific [place] 1.025 Urine Protein 30 H Urine Glucose (UA) Normal Urine Ketones 5 H Urine Occult Blood 250 H Urine Nitrite Positive H Urine Bilirubin Negative Urine Urobilinogen 1 H Ur Leukocyte Esterase 100 H Urine RBC 25-50 SEEN Urine WBC 10-25 SEEN Ur Squamous Epith Cells 0-5 SEEN Urine Bacteria 2+ Urine Mucus 0 SEEN Radiography Diagnostic Testing: Clinical Impression(s) from Imaging Studies Brain CT 10/05/21 11:44 IMPRESSION: Chronic involutional changes of the brain. Electronically Signed: Toñito Castellanos MD at 12:43 EST , Facial/Sinus 10/05/21 11:44 IMPRESSION: Right preorbital soft tissue swelling. Electronically Signed: Toñito Castellanos MD at 12:46 EST , Pelvis X-Ray 10/05/21 11:47 IMPRESSION: Osteoarthritis of both hip joints. No acute fracture is seen. Electronically Signed: Toñito Castellanos MD at 12:48 EST , Chest X-Ray 10/05/21 12:11 IMPRESSION: Nondisplaced fractures of the right eighth and ninth ribs anterolaterally. Blunting of the right costophrenic angle. Electronically Signed: Toñito Catsellanos MD at 12:47 EST , Rhythm Strip Rhythm Strip: Sinus Rhythm Ectopy: None EKG Initial EKG: Attestation: I personally reviewed and interpreted this EKG as follows: Interpretation: Sinus Rhythm Comments: Normal sinus rhythm with first-degree AV block WA interval [address] and T wave abnormalities Low voltage QRS Discharge Plan Dx/Rx/DC Orders Clinical Impression: Non-traumatic rhabdomyolysis, Debility, Blisters of multiple sites, Right rib fracture, Closed head injury, Blunt trauma of face Disposition Disposition: Acute Care Hospital [facility] Discharge Date/Time: 10/05/21 14:54
[2021-10-05 12:43] LABS: Mucous, Urine 0 SEEN /hpf (<or=2+)
[2021-10-05 12:46] LABS: Color, Urine Yellow (Yellow); Glucose, Dipstick Normal (Normal); Ketone-Dipstick 5 mg/dl (Negative); Leukocyte Esterase-Dipstick 100 /ul (Negative); Nitrite-Dipstick Positive (Negative); Occult Blood-Urine 250 /ul (Negative); Protein-Dipstick 30 mg/dl (Negative); Specific Gravity, Urine 1.025 (1.002-1.030); Urine Bilirubin Dipstick Negative (Negative); Urine Clarity Clear (Clear); Urine Urobilinogen 1 mg/dl (Normal)
[2021-10-05 12:46] LABS: ALB/GLOB Ratio 0.5 RATIO (0.9-2.4); AST(SGOT) 201 U/L (15-37); Alanine Aminotransfer ALT/SGPT 49 U/L (13-56); Albumin, Serum 2.2 g/dL (3.2-5.0); Alkaline Phosphatase 119 U/L (45-117); Anion Gap 4 (5-15); BUN 27 mg/dL (7-18); BUN/Creat Ratio 25.2 RATIO (10-20); CPK Total, Creatine Kinase 4794 U/L (26-192); Calcium,Total 9.3 mg/dL (8.5-10.1); Chloride 114 mmol/L (98-107); Creatinine, Serum 1.07 mg/dL (0.55-1.02); EST Glomerular Filtration Rate 53 mL/min (>60); Est Glom Filt Rate - Afr Amer 64 mL/min (>60); Estimated Creatinine Clearance 33.13 ml/min; Globulin 4.1 g/dL (2.2-4.2); Glucose 143 mg/dL (74-106); Potassium 4.1 mmol/L (3.5-5.1); Protein, Total 6.3 g/dL (6.4-8.2); Sodium Level 143 mmol/L (136-145)
[2021-10-05 12:58] LABS: Bacteria 2+ /hpf (None Seen); Red Blood Cells-Urine 25-50 SEEN /hpf (0-5); Squamous Epithelial Cells - UA 0-5 SEEN /hpf (5-10); White Blood Cells 10-25 SEEN /hpf (0-5)
[2021-10-05] MEDS: Morphine 2 MG/ML Syringe IV (13:02)
[2021-10-05 13:07] VITALS: BP 147/82; PULSE 87; RESP 16; O2SAT 99
[2021-10-05] MEDS: Ondansetron 4 MG/2 ML Vial IV (13:07)
--- NOTE | 2021-10-05 13:18 | HP.PCM.HOS_ITS ---
HPI - General General Date of Admission: 10/05/21 HPI Narrative FR[place] NAM, is a 75 F who with a PMh as outlined who presents via the ED on 10/05/2021 with a complaint of mechanical fall. She tripped whilst trying to go to her bathroom and was stuck in the bedroom the entire night. She admits to hitting her head. Patient has had similar falls recently and says she fell ~ 2 weeks prior to this admission and sustained an injury to her RLE. SHe denied any headache, dizziness, palpitations, nausea, chest pain, shortness of breath or vomiting. She complained of pain and swelling of her right eye. Review of systems is otherwise negative. She apparently hasnt left her house in the last 7 months due to debility. Vitals in the ED at time of review were BP of 147/82, HR of 87. RR of 16 and she was saturating at 99% on room air. CBC showed platelets of 71 with WBC of 7.9 and hemoglobin of 12.4. Chemistry showed sodium of 143 with creatinine of 1.07 and potassium of 4.1. CPK was 4794. Urinalysis showed 2+ bacteria with 100 leukocyte esterase and 10-25 WBC. She has been admitted to be managed for debility due to mechanical fall as well as rhabdomyolysis due to mechanical fall. [facility] Medical History (Updated 10/05/21 @ 15:27 by Mari Collier) Breast cancer Cholecystectomy planned Chronic pain GERD (gastroesophageal reflux disease) Gout Hypertension Kidney stones Lupus Migraines Morbidly obese Non-smoker Osteoporosis Rheumatoid arthritis Sinus pressure Sleep apnea Home Medications cholecalciferol (vitamin D3) [Vitamin D] 3,000 unit PO DAILY 04/15/17 [History Last Taken 10/05/21] lisinopril 20 mg PO Q3D 04/15/17 [History Last Taken 10/04/21] venlafaxine 75 mg PO DAILY PRN 04/15/17 [History Last Taken Unknown] ascorbic acid (vitamin C) 250 mg PO DAILY 09/03/20 [History Last Taken 10/04/21] ferrous sulfate 325 mg PO Q2D 09/03/20 [History Last Taken 10/04/21] bacitracin 1 applic TOPICAL TID 10/05/21 [History Last Taken 10/04/21] nystatin 1 applic TOPICAL BIDCM PRN 10/05/21 [History Last Taken 10/04/21] Allergy/AdvReac Type Severity Reaction Status Date / Time erythromycin base Allergy Rash Verified 10/05/21 11:21 iodine Allergy Rash Verified 10/05/21 11:21 Penicillins [PCN] Allergy Rash Verified 10/05/21 11:21 Sulfa (Sulfonamide Allergy Rash Verified 10/05/21 11:21 Antibiotics) Surgical History (Updated 10/05/21 @ 11:24 by Martínez Moreno) H/O hernia repair H/O: hysterectomy History of tonsillectomy Social History Smoking Status: Never smoker ROS Review of Systems ROS Unobtainable: Denies due to encephalopathy Constitutional Constitutional: Reports fatigue, malaise and weakness; Denies anorexia, change in weight, chills or fever(s) Eyes Eyes: Denies change in vision ENT HEENT: Denies dysphagia, hearing loss, nasal congestion, nasal discharge, sinus pressure or sore throat Cardiovascular Cardiovascular: Denies chest pain, dyspnea on exertion, edema, lightheadedness, orthopnea, palpitations, paroxysmal nocturnal dyspnea or rapid heart rate Respiratory/Chest Respiratory/Chest: Denies cough, dyspnea, productive cough, shortness of breath at rest or shortness of breath with exertion Gastrointestinal Gastrointestinal: Denies abdominal pain, constipation, diarrhea, nausea or vomiting Genitourinary Genitourinary: Denies burning urination Musculoskeletal Musculoskeletal: Denies arthralgias or joint pain Neurologic Neurologic: Denies confusion, dizziness, focal weakness or headache(s) Psychiatric Psychiatric: Denies anxiety or depression Endocrine Endocrinology: Denies change in body appearance Hematologic/Lymphatic Hematologic/Lymphatic: Denies anemia Vital Signs Vital Signs Vital Signs: 10/05/21 11:17 10/05/21 11:21 10/05/21 11:30 Temperature 97.8 F 97.9 F Temperature Source Temporal Temporal Pulse Rate 77 77 Respiratory Rate 18 18 Respiratory Effort Normal Respiratory Depth Normal Respiratory Pattern Normal Blood Pressure 108/59 L 108/59 L Blood Pressure Mean 75 75 Pulse Ox 98 98 Oxygen Delivery Method Room Air Room Air Room Air 10/05/21 12:24 10/05/21 13:07 Temperature Temperature Source Pulse Rate 77 87 Respiratory Rate 18 16 Respiratory Effort Respiratory Depth Respiratory Pattern Blood Pressure 140/78 H 147/82 H Blood Pressure Mean 98 103 Pulse Ox 97 99 Oxygen Delivery Method Room Air Weight Weight: 318 lb 12.615 oz Body Mass Index (BMI) 62.2 Physical Exam Const alert and oriented x3 Constitutional Narrative: super morbid obesity General Appearance: cooperative Orientation / Consciousness: lethargic HEENT normocephalic and head/scalp atraumatic HEENT Narrative: dry oral mucosa Eyes PERRL, EOMs intact bilaterally and conjunctivae normal Eyes Narrative: has right periorbital erythema from mechanical fall. Able to open eyes. Neck no lymphadenopathy, supple and no JVD Resp normal respiratory effort, no retractions, no use of accessory muscles and clear to auscultation bilaterally Cardio regular rate, regular rhythm, S1 normal heart sound, S2 normal heart sound and no murmurs GI normal to inspection, nondistended, normoactive bowel sounds, soft to palpation, non-tender and non-distended Extremity normal to inspection and full ROM Extremity Narrative: bilateral nonpitting edema. has tenderness to palpation of LLE, due to mechanical fall. Has a nontender blister on dorsum of left foot. Peripheral Pulses: Yes pulses 2+ throughout Skin Skin Narrative: as under extremities Neuro oriented x3, CN's II-XII intact bilaterally and moves all extremities Sensorium / Orientation: awake and alert Psych affect normal Results Lab / Micro Data Result Diagrams: 10/05/21 11:28 10/05/21 11:28 Labs: Laboratory Results - last 24 hr 10/05/21 11:28: WBC 7.9, RBC 3.52 L, Hgb 12.4, Hct 38.4, MCV 109.1 H, MCH 35.2 H , MCHC 32.3, RDW Std Deviation 60.5 H, RDW Coeff of Pako 15.4 H, Plt Count 71 L, MPV 9.6, Immature Gran % (Auto) 0.500, Neut % (Auto) 84.1 H, Lymph % (Auto) 8.8 L, Chaves % (Auto) 6.5, Eos % (Auto) 0.0, Baso % (Auto) 0.1, Absolute Neuts (auto) 6.6, Absolute Lymphs (auto) 0.69 L, Nucleated RBC % 0 10/05/21 11:28: Sodium 143, Potassium 4.1, Chloride 114 H, Carbon Dioxide 25.0, Anion Gap 4 L, BUN 27 H, Creatinine 1.07 H, Estim Creat Clear Calc 33.13, Est GFR (MDRD) Af Amer 64, Est GFR (MDRD) Non-Af 53 L, BUN/Creatinine Ratio 25.2 H, Glucose 143 H, Calcium 9.3, Total Bilirubin 1.30 H, AST 201 H, ALT 49, Alkaline Phosphatase 119 H, Total Creatine Kinase 4794 H, C-React Prot Ext Range 24.30 H, Total Protein 6.3 L, Albumin 2.2 L, Globulin 4.1, Albumin/Globulin Ratio 0.5 L 10/05/21 12:40: Urine Color Yellow, Urine Clarity Clear, Urine pH 5.0, Ur Specific Castle 1.025, Urine Protein 30 H, Urine Glucose (UA) Normal, Urine Ketones 5 H, Urine Occult Blood 250 H, Urine Nitrite Positive H, Urine Bilirubin Negative, Urine Urobilinogen 1 H, Ur Leukocyte Esterase 100 H, Urine RBC 25-50 SEEN, Urine WBC 10-25 SEEN, Ur Squamous Epith Cells 0-5 SEEN, Urine Bacteria 2+, Urine Mucus 0 SEEN Radiology Impression Brain CT 10/05/21 11:44 IMPRESSION: Chronic involutional changes of the brain. Electronically Signed: Toñito Castellanos MD at 12:43 EST , Facial/Sinus 10/05/21 11:44 IMPRESSION: Right preorbital soft tissue swelling. Electronically Signed: Toñito Castellanos MD at 12:46 EST , Pelvis X-Ray 10/05/21 11:47 IMPRESSION: Osteoarthritis of both hip joints. No acute fracture is seen. Electronically Signed: Toñito Castellanos MD at 12:48 EST , Chest X-Ray 10/05/21 12:11 IMPRESSION: Nondisplaced fractures of the right eighth and ninth ribs anterolaterally. Blunting of the right costophrenic angle. Electronically Signed: Toñito Castellanos MD at 12:47 EST , Assessment & Plan Assessment/Plan (1) Non-traumatic rhabdomyolysis: (2) Debility: PLAN: #Debility due to mechanical fall * has been falling several times at home. Couldnt get up the whole night after falling * admit to med surg * PT/OT consult. Fall precautions * hydrate with IVF o/ of rhabdomyolysis. Will benefit from placement. * #Rhabdomyolysis due to mechanical fall * CPK elevated at 4794. Hydrate aggressively with IV fluids at 150 cc/h * Trend CPK. * PT OT on board. Fall precautions. * #UTI: Urinalysis shows evidence of UTI. Start on IV ceftriaxone. Get urine cultures. #Elevated creatinine: * Creatinine is 1.07, with a baseline of ~ 0.8. * Does not meet criteria for MIGUE. * Hydrate with IV fluids and trend. #Hypertension: On hydrochlorothiazide and lisinopril. Hold HCTZ. IV hydralazine as needed #Depression: On venlafaxine #Hyperlipidemia: On ezetimibe #SUper morbid obesity: complicates acute care, prognosis and expected recovery. DVT prophylaxis: Lovenox CODE STATUS: * DNR CCA no intubation. * ED doctor discussed with patient about CODE STATUS and patient opted to be DNR CCA. Papers signed by ED doctor. Charges/Coding Visit Charges Inpatient E&M: 91585 Init Hosp L3
[2021-10-05 13:36] VITALS: BP 147/82; PULSE 87; RESP 16; TEMP 36.2; O2SAT 99
--- NOTE | 2021-10-05 14:41 | CM.ED ---
BERNARDINO/CM Note Information Source: Patient and her sonLucho Family Present: Son, Lucho. Next of Kin: Son, Lucho. Patient's May 2021. Patient reports no previous acute hospitalizations. PCP: Radha Sebastian STEAMER BLOCKER Specialist: None. However, patient's son said that patient is linked with palliative care but not taking advantage of all they offer. Insurance: Medicare A and B and AARP Prescription Insurance: Patient said that AARP would cover Patient lives with :Self and 2 cats Living Arrangements: Mobile Home. Has ramp and 2 steps into the residence Living Will/HCPOA: Patient does not have LW/HCPOA but it was provided [facility] Advanced [place] paperwork to patient's son and the process was reviewed with patient and her son. Transportation: Patient does not drive Patient reports she needs help with everything when asked about ADL's. Patient said that she has a niece by marriage that comes and does odds and ends . Employed: Retired Smoking: Denied Alcohol or drugs: Denied Safe at home? Patient said that she feels yes.. shea safe at home but then clarified she doesn't feel safe due to falling Current DME: Walker, Lift chair. No safety bars. Patient reports no previous SNF or Home Health care. Patient's son said that patient has been recommended that she may need SNF or Rehab at discharge. SW provided patient with list of SNF in [facility]. Plan: Patient and son indicated that they have been recommended SNF/Rehab at discharge. List of [facility] SNF's provided to them. Alana LARSEN
[2021-10-05 15:20] VITALS: BMI 60.5
--- NOTE | 2021-10-05 15:51 | WOUNDNOTE ---
wound photo: left lower leg
--- NOTE | 2021-10-05 15:51 | WOUNDNOTE ---
wound photo: left lower leg
--- NOTE | 2021-10-05 15:52 | WOUNDNOTE ---
wound photo: left leg
--- NOTE | 2021-10-05 15:52 | WOUNDNOTE ---
wound photo: left posterior knee
--- NOTE | 2021-10-05 15:53 | WOUNDNOTE ---
wound photo: right abdominal fold
--- NOTE | 2021-10-05 15:54 | WOUNDNOTE ---
wound photo: abdominal fold
--- NOTE | 2021-10-05 15:55 | WOUNDNOTE ---
wound photo: left abdominal fold
--- NOTE | 2021-10-05 15:56 | WOUNDNOTE ---
wound photo: right shoulder
[2021-10-05] MEDS: 0.9% Saline Lock 10 ML Syringe IV (16:47)
[2021-10-05] MEDS: 0.9% Normal Saline 1,000 ML 150 ML IV (16:49)
[2021-10-05] MEDS: Ferrous Sulfate 325 MG Tablet PO (16:50)
[2021-10-05] MEDS: oxyCODONE 5 MG Tablet 10 MG PO ×2 (16:50→20:52)
[2021-10-05] MEDS: Juven (unflavored) Packet 1 PACKET PO (16:51)
[2021-10-05] MEDS: Ceftriaxone 1 GM/50 mL Premix Q24 IV (17:54)
[2021-10-05 20:48] VITALS: BP 115/61; PULSE 110; RESP 18; TEMP 37.1; O2SAT 96
[2021-10-05] MEDS: Nystatin Powder 15gm Bottle 1 APPLIC TOPICAL (20:53)
[2021-10-06] VITALS (10 sets, daily range): BP systolic 91–109; BP diastolic 34–62; PULSE 81–132; RESP 18–24; TEMP 36.6–37.8; O2SAT 92–97
[2021-10-06] MEDS: 0.9% Normal Saline 1,000 ML 150 ML IV ×2 (00:06→06:50)
[2021-10-06] MEDS: Nystatin Powder 15gm Bottle 1 APPLIC TOPICAL ×3 (05:05→20:07)
[2021-10-06 07:13] LABS: Absolute Lymphocyte Count 0.89 X10^3/uL (0.83-4.51); Absolute Neutrophil Count 7.2 X10^3/uL (2.0-7.7); Basophil# 0.02 X10^3/uL; Basophil% 0.2 % (0-1); Eosinophil# 0.03 X10^3/uL; Eosinophils% 0.3 % (0-5); Hematocrit 35.9 % (37-47); Hemoglobin 11.1 g/dL (12.0-15.0); Lymphocyte # 0.89 X10^3/ul (0.83-4.51); Mean Corp Hgb Conc 30.9 g/dL (32-36); Mean Corpuscular Hgb 34.3 pg (27.0-32.0); Mean Corpuscular Volume 110.8 fL (81-99); Mean Platelet Vol. 9.6 fl (6.2-12.0); Monocyte# 0.69 X10^3/uL; Monocyte% 7.8 % (0-10); NRBC Flagged by Analyzer 0 % (0-5); Neutrophil # 7.21 X10^3/uL (2.7-7.7); Neutrophil % 81.1 % (47-70); POSITIVE COUNT YES; Platelet Count 70 K/mm3 (150-450); RBC Distribution Width CV 15.6 % (11.6-14.6); RBC Distribution Width SD 63.5 fl (35.1-43.9); Red Blood Count 3.24 M/mm3 (4.2-5.4); White Blood Count 8.9 K/mm3 (4.4-11.0)
[2021-10-06 07:32] LABS: Anion Gap 3 (5-15); BUN 30 mg/dL (7-18); BUN/Creat Ratio 39.5 RATIO (10-20); Calcium,Total 8.3 mg/dL (8.5-10.1); Chloride 114 mmol/L (98-107); Creatinine, Serum 0.76 mg/dL (0.55-1.02); EST Glomerular Filtration Rate 79 mL/min (>60); Est Glom Filt Rate - Afr Amer 95 mL/min (>60); Estimated Creatinine Clearance 35.45 ml/min; Glucose 122 mg/dL (74-106); Potassium 4.3 mmol/L (3.5-5.1); Sodium Level 142 mmol/L (136-145)
[2021-10-06] MEDS: Multivitamins,Ther W-Minerals Tablet 1 TABLET PO (08:36)
[2021-10-06] MEDS: Ferrous Sulfate 325 MG Tablet PO ×2 (08:36→15:54)
[2021-10-06] MEDS: Juven (unflavored) Packet 1 PACKET PO ×2 (08:37→15:53)
[2021-10-06] MEDS: Ceftriaxone 1 GM/50 mL Premix Q24 IV (10:00)
[2021-10-06] MEDS: oxyCODONE 5 MG Tablet 10 MG PO (10:11)
[2021-10-06] MEDS: Lisinopril 20 MG Tablet PO (10:45)
[2021-10-06] MEDS: Cholecalciferol (VIT D3) 25 MCG TABLET (1,000 UNITS) 75 MCG PO (10:45)
--- NOTE | 2021-10-06 11:06 | CASEMGMT ---
Addendum entered by Anastacia Comer 10/06/21 11:21: Social Work SW went back to pt's room to let her know referral sent and SW will follow up w/son--as he was present yesterday during the initial conversation around placement. Pt was asleep however. SW called son Lucho, let him know SW spoke w/pt and she had indicated she wanted a referral to [facility], since it is close to his work. Son Lucho states he has learned since initially speaking w/pt about choices, that [facility] is short staffed. We discussed other options, he would like a referral sent to [facility] as it is also near his work. SW explained will send referral to [facility] also, and see if they would be able to take pt. SW did let son know that pt is ready for discharge today. Son states that worst case scenario pt could go to [facility] and he could always have her moved. Son will be here this afternoon, SW explained will update him as we know if facilities can take pt. SW called [facility], spoke w/Citlalli, referral faxed. She is to let SW know if they can take pt. SW will continue to follow. CARMEL Reed Original Note: Social Work SW spoke w/pt in regard to [facility] choices. Pt states she wants to go somewhere in [place] as her son works in [place]. SW reviewed that [facility] and [facility] are both in [place]. Pt states she would like a referral sent to [facility]. SW called [facility], message left, and referral faxed. SW will continue to follow. CARMEL Reed
--- NOTE | 2021-10-06 12:00 | NURSING ---
10 am Meds scanned with instructor present, however step to save med omitted. Student assisted with full documentation of meds. Lovenox held due to platelets 70. see physician notification charting.
--- NOTE | 2021-10-06 13:42 | CASEMGMT ---
Addendum entered by Mari Cano 10/06/21 14:05: SW received message from Citlalli at [facility] stating they cannot accept pt at this time. SW placed a call to pt's son Lucho and introduced self and role at [facility]. SW informed Lucho that both referrals were sent to [facility] and [facility]. SW explained that [facility] cannot accept pt but [facility] can accept pt. Lucho states he will be at [facility] and will speak with pt. Lucho states that he has just heard things from workers at [facility] that they are short staffed at this time. Lucho states [facility] though is very convenient. Lucho states he will be at [facility] soon and will talk with pt. SW informed Lucho that this worker will meet with him and pt once he arrives to [facility]. Lucho states understanding. SW to meet with pt and Lucho to continue discussion of SNF. Original Note: Social Work Note SW received message from Noel at [facility] asking if pt has been vaccinated. Noel also states they can accept pt, will submit for prior auth. SW reviewed pt's insurance. Pt has Medicare, prior auth is not needed. SW in to speak with pt. SW introduced self and role at [facility]. Pt states that she has been vaccinated and received the booster. SW informed pt that referral was also sent to [facility] per her son's request. Pt states understanding. BERNARDINO placed a call back to [facility] and left message for Noel in admissions informing him that pt has been vaccinated, prior auth is not needed as pt has Medicare, and this worker is waiting for call back from another SNF regarding referral and will let him know once family has decided on facility. BERNARDINO placed a call to Citlalli at [facility] and left message regarding referral. BERNARDINO waiting for call back from Citlalli at [facility]. Mari Cano TRAINING AND DEVELOPMENT PROJECT LEADER, MOSS BLEACHER
--- NOTE | 2021-10-06 14:53 | CASEMGMT ---
Addendum entered by Mari Cano 10/06/21 15:35: SW placed a call to Noel at [facility] and left message regarding bed availability today. SW waiting for call back. Original Note: Social Work Note SW in to speak with pt and pt's son Lucho. Pt aware that [facility] is not able to accept pt but [facility] is. Pt agreeable to [facility] as it is the closest to Lucho's work. SW informed pt and Lucho that pt is medically ready for discharge today, will need to confirm with [facility] on acceptance today. Lucho states pt was provided Advanced Directives and Lucho had questions regarding the documents. SW explained documents to pt and that if this worker has time before pt leaves, this worker could assist pt with completing documents. SW explained that if documents are not able to be completed while at [facility], SW at [facility] would be able to assist pt in completing documents. Pt and Lucho state understanding. BERNARDINO placed a call to Noel at [facility] and left message stating pt and Lucho are agreeable to [facility], asked if pt is able to discharge to [facility] today. SW waiting for call back. BERNARDINO then received call from Noel. Noel states he will need to check with housekeeping to determine if a bed is cleaned for pt tonight. BERNARDINO waiting for call back from Noel. Plan: [facility] Mari Cano LITHOGRAPH PRESS FEEDER, NURSING TECHNICIAN
--- NOTE | 2021-10-06 16:14 | PN.HOSP_ITS ---
Subjective Subjective Patient was seen and examined today, she was admitted yesterday after sustaining a fall at home and landing on her floor, she was brought in and complained of generalized weakness, CPK was elevated indicating rhabdomyolysis. Patient has morbid obesity and degenerative disc disease of the lumbar spine. Examination in the emergency room last night showed multiple blistered areas of the skin from friction, she also has open areas under her panniculus, she also complains today of pain in her left leg-this leg was not x-rayed and I will need to order an x-ray on her left leg. Patient states her left leg was bent in an awkward position when she fell. She stated this leg was in that position for many hours. Patient lives alone, she will need placement in a skilled care facility which is pending at this time. Finally, x-rays of her chest showed nondisplaced rib fractures of the right eighth and ninth ribs-she states this is from an old fall in the past. Objective Data Objective Data Vital Signs: Vital Signs Temp Pulse Resp BP Pulse Ox 99.7 F H 84 18 93/34 L 97 10/06/21 12:39 10/06/21 12:39 10/06/21 12:39 10/06/21 12:39 10/06/21 12:39 Oxygen Flow Rate (L/min) 2 Oxygen Delivery Method Room Air Weight: 140.6 kg Body Mass Index (BMI) 60.5 Intake & Output: Intake and Output for Last 24 Hours 10/04/21 10/05/21 10/06/21 23:59 23:59 23:59 Intake Total 1215 / 2050 2360 / 2360 Output Total 750 / 750 Balance 1215 / 1750 1610 / 1610 Lab / Micro Data Result Diagrams: 10/06/21 06:44 10/06/21 06:44 Labs: Laboratory Results - last 24 hr 10/06/21 06:44: WBC 8.9, RBC 3.24 L, Hgb 11.1 L, Hct 35.9 L, MCV 110.8 H, MCH 34.3 H, MCHC 30.9 L, RDW Std Deviation 63.5 H, RDW Coeff of Pako 15.6 H, Plt Count 70 L, MPV 9.6, Immature Gran % (Auto) 0.600, Neut % (Auto) 81.1 H, Lymph % (Auto) 10.0 L, Blair % (Auto) 7.8, Eos % (Auto) 0.3, Baso % (Auto) 0.2, Absolute Neuts (auto) 7.2, Absolute Lymphs (auto) 0.89, Nucleated RBC % 0 10/06/21 06:44: Sodium 142, Potassium 4.3, Chloride 114 H, Carbon Dioxide 25.0, Anion Gap 3 L, BUN 30 H, Creatinine 0.76, Estim Creat Clear Calc 35.45, Est GFR (MDRD) Af Amer 95, Est GFR (MDRD) Non-Af 79, BUN/Creatinine Ratio 39.5 H, Glucose 122 H, Calcium 8.3 L Micro: Microbiology 10/05/21 18:05 Urine, Catheterized Urine Culture - Preliminary Presumptive E. coli Rhythm Strip Rhythm Strip: Sinus Rhythm Ectopy: None Physical Exam Narrative The size and immobility of the patient makes a a thorough examination impossible. Const alert, oriented x3 and no apparent distress Constitutional Narrative: Patient has morbid obesity General Appearance: cooperative, well kempt and well developed Orientation / Consciousness: awake, oriented to person, oriented to place and oriented to time Nutritional Appearance: morbidly obese HEENT normocephalic and moist oral mucous membranes HEENT Narrative: Patient has a eschared area over her forehead approximately 2 to 3 cm in diameter Eyes PERRL, EOMs intact bilaterally and conjunctivae normal Neck nuchal rigidity, supple, no JVD and thyroid normal General: trachea midline Resp normal respiratory effort, no retractions, no use of accessory muscles and clear to auscultation bilaterally Auscultation: Negative for rales, rhonchi or wheezes Cardio regular rate, regular rhythm, S1 normal heart sound, S2 normal heart sound, no murmurs, no rub, no gallops and no clicks GI normal to inspection, nondistended, normoactive bowel sounds, soft to palpation, non-tender and non-distended Extremity Extremity Narrative: Patient has extreme tenderness with any movement of the left leg. There is also tenderness to palpation around the proximal lower leg and knee area. Skin Skin Narrative: There are multiple open areas over the patient's right shoulder, under the left and right panniculus area laterally, and in the antecubital area of the left knee. General Skin Exam: no breakdown Neuro oriented x3, CN's II-XII intact bilaterally, no focal motor deficits and no sensory deficits noted Sensorium / Orientation: awake and alert Speech: speech normal Psych affect normal Assessment & Plan Assessment/Plan (1) Lumbosacral spondylosis: PLAN: 1. Debility secondary to deconditioning, exacerbated by a fall at her home with friction injuries to her skin, also exacerbated by morbid obesity- patient will be seen by PT and OT, she will need short-term (? Long-term) placement in a residential facility, we are attempting to get an accepting facility for the patient at this time #2 rhabdomyolysis-I will reduce the patient's IV fluid to 75 cc an hour, patient's creatinine is normal today #3 acute cystitis-secondary to presumptive E. coli, continue Rocephin #3 degenerative joint disease of the lumbar spine-complicates care and clouds prognosis, PT and OT will be working with the patient #4 essential hypertension-patient is on lisinopril #5 chronic depression-patient has listed that she takes Effexor 75 mg daily as needed-I will make this a daily medication #6. Right eighth and ninth rib fractures -according to the patient, these appear to be old injuries from a previous fall #7 multiple skin breakdown areas-wound care seeing the patient, orders were entered by wound care #8 morbid obesity-complicates care and recovery, nutritional services is seeing patient #9 mycotic skin infections of intertriginous folds-nystatin powder is being used #10 left knee and leg pain-I will order x-rays of the left knee and the left lower leg. Charges/Coding Visit Charges Inpatient E&M: 98417 Subs Hosp L2
--- NOTE | 2021-10-06 16:30 | CASEMGMT ---
Social Work Note SW placed another call to Noel at [facility] and left message regarding bed availability. SW updated that pt is going to get x-ray done. SW in to speak with pt. SW informed pt that at this time, this worker is waiting for call back to confirm bed availability at [facility] and pt [facility] SW informed pt that hopefully tomorrow pt will be able to discharge to [facility]. SW informed pt that SW will also check in with pt tomorrow regarding completing Advanced Directives. Pt states understanding, asked that this worker call her son Lucho to update. SW placed a call to pt's son Lucho and updated him that this worker is waiting for bed confirmation from [facility], pt to remain at [facility] tonight. Lucho states just to let him know when pt gets transferred to [facility]. BERNARDINO updated RN. SW is leaving for the day, will follow up with [facility] tomorrow. Plan: [facility] pending bed availability. Mari Cano SASH MAKER, EQUIP MAINT ENG
--- NOTE | 2021-10-06 16:43 | RAD_ITS ---
STUDY: X-RAY - LEFT TIBIA AND FIBULA REASON FOR EXAM: Female, 75 years old. Leg pain. TECHNIQUE: AP and lateral view(s) of the tibia and fibula were obtained. COMPARISON: Left knee, 10/06/2021. FINDINGS: Normal visualized tibia. Normal visualized fibula. There is no acute fracture, dislocation or destructive osseous pathology. Marked degenerative changes of the knee. The ankle appears intact. The soft tissue structures are unremarkable. RAD/Tibia & Fibula 2 Views IMPRESSION: Degenerative changes of the knee. There is no acute fracture or dislocation. Electronically Signed: Aries Aguiar DO at 18:51 EST ,
[2021-10-06] MEDS: 0.9% Saline Lock 10 ML Syringe IV (16:56)
[2021-10-06] MEDS: Morphine 4 MG/ML Syringe IV (16:56)
[2021-10-06] MEDS: Ondansetron 4 MG/2 ML Vial IV (16:57)
--- NOTE | 2021-10-06 17:30 | RAD_ITS ---
STUDY: X-RAY - LEFT KNEE REASON FOR EXAM: Female, 75 years old. Left knee pain TECHNIQUE: 2 view(s) of the knee. COMPARISON: None. FINDINGS: Normal visualized distal femur. Normal visualized proximal tibia and fibula. Normal proximal tibiofibular articulation. There is no acute fracture, dislocation or destructive osseous pathology. There is severe degenerative arthrosis of the medial femorotibial compartment with severe joint space narrowing. Normal lateral femorotibial compartment. There is severe degenerative arthrosis of the patellofemoral articulation. There is no demonstrated joint effusion. The soft tissue structures are unremarkable. RAD/Knee 1 or 2 Views IMPRESSION: Degenerative arthrosis. Electronically Signed: Aries Aguiar DO at 18:49 EST Reading Location ID and State: [address] [place] [address] Tel [phone], Service support ,
[2021-10-06] MEDS: Acetaminophen 325 MG Tablet 650 MG PO (20:06)
[2021-10-07] MEDS: 0.9% Normal Saline 1,000 ML 75 ML IV (00:13)
[2021-10-07 02:00] VITALS: BP 103/51; PULSE 69; RESP 18; TEMP 37.2; O2SAT 94
[2021-10-07] MEDS: Nystatin Powder 15gm Bottle 1 APPLIC TOPICAL (05:31)
[2021-10-07 08:26] VITALS: BP 101/43; PULSE 78; RESP 18; TEMP 36.8; O2SAT 95
--- NOTE | 2021-10-07 08:36 | CASEMGMT ---
Addendum entered by Mari Cano 10/07/21 09:17: SW placed a call to Noel at [facility] who confirms they can accept pt today. Pt is medically ready for discharge today. Plan: [facility] skilled today Original Note: Social Work Note SW received message from Noel at [facility] stating they can accept pt, they do have a bed available for pt, and can admit pt today. Plan: [facility] skilled Mari Cano BOW MAKER PRODUCTION, MANAGER VALIDATION
[2021-10-07] MEDS: Multivitamins,Ther W-Minerals Tablet 1 TABLET PO (08:54)
[2021-10-07] MEDS: Ferrous Sulfate 325 MG Tablet PO (08:54)
[2021-10-07] MEDS: Juven (unflavored) Packet 1 PACKET PO (08:54)
[2021-10-07] MEDS: Lisinopril 20 MG Tablet PO (08:55)
[2021-10-07] MEDS: Cholecalciferol (VIT D3) 25 MCG TABLET (1,000 UNITS) 75 MCG PO (08:55)
[2021-10-07] MEDS: Venlafaxine HCl 75 MG Tablet PO (08:57)
[2021-10-07] MEDS: Ceftriaxone 1 GM/50 mL Premix Q24 IV (08:59)
--- NOTE | 2021-10-07 09:00 | CASEMGMT ---
Social Work Note BERNARDINO received call from pt's son Lucho Lee requesting update on pt's discharge. BERNARDINO informed Lucho that pt will be discharged to [facility] today. Lucho asked about what time pt will be transported. BERNARDINO informed Lucho that it just depends on transportation schedule and once transportation time is confirmed, this worker will let him know. Lucho states understanding. Plan: [facility] skilled today Mari Cano FUTURES TRADER, LEATHER TOOLER
[2021-10-07] MEDS: oxyCODONE 5 MG Tablet PO ×2 (09:12→14:05)
--- NOTE | 2021-10-07 10:10 | PCM.DC.SUM ---
Providers Date of Admission: 10/05/21 Date of Discharge: 10/07/21 Primary Care Physician: Radha Sebastian, BERTHA-C Consultations 10/05/21 15:47 Consult: Onc/Wound/senior interactive producer Routine Comment: Reason For Visit: RHABDOMYOLYSIS, MECHANICAL FALL Diagnosis Discharge Diagnosis (1) Closed head injury: Status: Acute Code(s): S09.90XA - Unspecified injury of head, initial encounter (2) Blunt trauma of face: Status: Acute Code(s): S09.93XA - Unspecified injury of face, initial encounter (3) Right rib fracture: Status: Acute Code(s): S22.31XA - Fracture of one rib, right side, initial encounter for closed fracture (4) Blisters of multiple sites: Status: Acute Code(s): R23.8 - Other skin changes (5) Debility: Status: Acute Code(s): R53.81 - Other malaise (6) Non-traumatic rhabdomyolysis: Status: Acute Code(s): M62.82 - Rhabdomyolysis (7) Acute cystitis: Status: Acute Code(s): N30.00 - Acute cystitis without hematuria Medications at Discharge Home Medications cholecalciferol (vitamin D3) [Vitamin D3] 3,000 unit PO DAILY 04/15/17 lisinopril 20 mg PO Q3D 04/15/17 venlafaxine 75 mg PO DAILY PRN 04/15/17 ascorbic acid (vitamin C) 250 mg PO DAILY 09/03/20 ferrous sulfate 325 mg PO Q2D 09/03/20 bacitracin 1 applic TOPICAL TID 10/05/21 nystatin 1 applic TOPICAL BIDCM PRN 10/05/21 acetaminophen [Tylenol] 650 mg PO Q6H PRN PRN #0 tab 10/07/21 cephalexin 500 mg PO Q12H #3 cap 10/07/21 Hospital Course Operations None Procedures None Summary of Care Provided Minutes Spent on Discharge: 39 Hospital Course: Mrs. Lee is a 76-year-old white female who presented to the emergency department at [facility] on 10/05/2021 after sustaining a mechanical fall at home. She reported that she tripped while she was trying to go to her bathroom and was stuck on the floor the entire night. She did admit to hitting the right side of her head. She did also admit to having recent falls as well with the most recent one being approximately 2 weeks ago. She sustained a injury to her right lower extremity at that time. She reported that she has not left her house in approximately 7 months due to debility. On admission her vital signs were overall unimpressive. Her CBC was unimpressive other than thrombocytopenia which appears to be chronic and stable. She had mild serum creatinine elevation at 1.07 with resolution to baseline prior to discharge. She also had an elevated CK at 4794. Her UA did appear infected and therefore urine culture was sent. Her urine culture resulted as presumptive E. coli with significant sensitivity to multiple antibiotics. She was treated with antibiotics throughout her hospitalization with ceftriaxone and then was converted to oral Keflex prior to discharge. She had multiple lower extremity wounds none of which were markedly severe and was followed by wound care with recommendations made for dressings at discharge. There were no signs of skin infection at the time of discharge. Most of her wounds were related to her falls. Multiple x-rays were performed of her lower extremities and showed no evidence of acute fractures. She also had a CT of her head that was negative for any acute findings. Given her marked debility with recent falls it was felt most appropriate that we discharge her to a skilled facility and she agreed to this. She was discharged in stable condition to [facility] on 10/07/2021 with no significant changes in her home medications other than the addition of Keflex to complete her antibiotic treatment. 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 We have instructed her to follow-up with her primary care physician 4 weeks after discharge. Discharge diagnoses: Rhabdomyolysis-resolved Debility Bilateral lower extremity wounds status post fall Acute cystitis secondary to E. coli Elevated serum creatinine-resolved Hypertension Depression Hyperlipidemia Super morbid obesity Chronic thrombocytopenia Chronic macrocytosis Urge incontinence Overactive bladder Lumbar DJD Physical Exam Const alert and oriented x3 Constitutional Narrative: Elderly female sitting up in bed, nursing and wound nurse at bedside, patient appears comfortable nontoxic, currently eating breakfast and watching television General Appearance: cooperative, comfortable, well kempt and well developed Orientation / Consciousness: awake Nutritional Appearance: morbidly obese HEENT normocephalic, head/scalp atraumatic, hearing grossly normal bilaterally and moist oral mucous membranes HEENT Narrative: Mallampati is 3, no thrush present Eyes PERRL, EOMs intact bilaterally and conjunctivae normal Eyes Narrative: No scleral icterus Neck no lymphadenopathy, supple and no JVD Neck Narrative: Neck is short and thick, trachea is midline, no thyroid enlargement noted Resp normal respiratory effort, no retractions, no use of accessory muscles and clear to auscultation bilaterally Resp Narrative: Distant secondary to body habitus but clear Auscultation: Negative for crackles, rales, rhonchi or wheezes Cardio regular rate, regular rhythm, S1 normal heart sound, S2 normal heart sound, no murmurs, no rub, no gallops, no clicks and no JVD GI normal to inspection, nondistended, normoactive bowel sounds, soft to palpation, non-tender and non-distended Extremity Extremity Narrative: Bilateral lower extremity edema that appears chronic, blistering on bilateral lower extremities left greater than right with distal lower extremities having dressings in place, erythematous with blister on the posterior aspect of the left knee, bilateral lower extremities are tender Skin skin turgor normal and no jaundice Skin Narrative: Abnormalities as noted above Neuro oriented x3, CN's II-XII intact bilaterally, moves all extremities, no focal motor deficits and no sensory deficits noted Neuro Narrative: Marked generalized weakness but no focal deficits Sensorium / Orientation: awake and alert Speech: speech normal Psych affect normal Psych Narrative: Very pleasant Weight / BMI Weight Weight: 140.6 kg Body Mass Index (BMI) 60.5 ABG / Lab / Microbiology Data Result Diagrams: 10/06/21 06:44 10/06/21 06:44 Microbiology: Microbiology 10/05/21 18:05 Urine, Catheterized Urine Culture - Final Presumptive E. coli Radiography Diagnostic Testing: Radiology Impression Tibia/Fibula X-Ray 10/06/21 16:43 IMPRESSION: Degenerative changes of the knee. There is no acute fracture or dislocation. Electronically Signed: Aries Aguiar DO at 18:51 EST Reading Location ID and State: [facility] / [place] Tel [phone], Service support , Knee X-Ray 10/06/21 17:30 IMPRESSION: Degenerative arthrosis. Electronically Signed: Aries Aguiar DO at 18:49 EST Reading Location ID and State: [facility] / [place] Tel [phone], Service support , Meaningful Use Info Meaningful Use Diagnoses (Choose all that apply): None applicable Discharge Plan Admission Admit Date/Time: 10/05/21 13:30 Primary Reason for Your Visit: Falls/Debility Attending Provider: Colleen Boone Primary Care Provider: Radha Sebastian NP Discharge Orders/Prescriptions Prescriptions: New acetaminophen [Tylenol] 325 mg Tablet 650 mg PO Q6H PRN PRN (Reason: Pain Score 1-10/Temp > 100.7 F) Qty: 0 RF: 0 cephalexin 500 mg capsule 500 mg PO Q12H Qty: 3 RF: 0 Continued venlafaxine 75 MG tablet 75 mg PO DAILY PRN (Reason: DEPRESSION) RF: 0 lisinopril 20 MG tablet 20 mg PO Q3D RF: 0 cholecalciferol (vitamin D3) [Vitamin D3] 1,000 UNIT tablet 3,000 unit PO DAILY RF: 0 ascorbic acid (vitamin C) 250 MG tablet,chewable 250 mg PO DAILY RF: 0 ferrous sulfate 325 MG tablet 325 mg PO Q2D RF: 0 bacitracin 500 unit/gram ointment 1 applic TOPICAL TID RF: 0 nystatin 100,000 unit/gram powder 1 applic TOPICAL BIDCM PRN (Reason: redness) RF: 0 Referrals / Follow Up: Radha Sebastian PERSONAL FITNESS MANAGER, PERSONAL FITNESS MANAGER-C [Primary Care Provider] - Within 1 Month Disposition Disposition (needs filled in before D/C Order can be placed): [facility] Facility Charges/Coding Visit Charges Inpatient E&M: 81932 SNF Disch >30 Min
--- NOTE | 2021-10-07 10:26 | PCM.TXEXTCAR ---
Diet 10/05/21 15:09 Diet: Cardiac - Heart Healthy Food consistency:: Regular Liquid Consistency:: Regular/Thin Routine Orders/Code Status Code Status: DNRCC-A (No intubation) Wound(s) right lateral abdominal fold: Wound Type: moisture associated open area Dressing Change: AntiMicrobial (Aquacel AG, etc) left lateral abdominal fold: Wound Type: moisture associated open area Dressing Change: AntiMicrobial (Aquacel AG, etc) right shoulder: Wound Type: open blister Dressing Change: Adaptic left lower leg (proximal): Wound Type: open blistered area Dressing Change: Adaptic left lower leg (distal): Wound Type: open blistered area Dressing Change: Adaptic left posterior knee: Wound Type: cluster of blistered areas Dressing Change: Dry Sterile Dressing FOREHEAD: Wound Type: scabbed wound coccyx: Wound Type: wound Suggestions for Active Care Change Position every (hours): 2 Hours to sit in a chair: 6 Times a day to sit in chair: 3 Therapies Weight Bearing: Weight bearing as tolerated Extremity Affected:: Bilateral Lower Physical Therapy: Eval and Treat Occupational Therapy: Eval and Treat Problem/Diagnosis (1) Closed head injury: Status: Acute (2) Blunt trauma of face: Status: Acute (3) Right rib fracture: Status: Acute (4) Blisters of multiple sites: Status: Acute (5) Debility: Status: Acute (6) Non-traumatic rhabdomyolysis: Status: Acute (7) Acute cystitis: Status: Acute Allergies/Procedures Done in Hospital Allergies erythromycin base Allergy (Verified 10/05/21 11:21) Rash iodine Allergy (Verified 10/05/21 11:21) Rash Penicillins [PCN] Allergy (Verified 10/05/21 11:21) Rash Sulfa (Sulfonamide Antibiotics) Allergy (Verified 10/05/21 11:21) Rash Procedures: None Type of Care/Length of Stay Estimated LOS: Convalescent Care Less Than 30 days Type of Care Needed: Skilled Rehab Potential: Good Prognosis: Good Additional Orders/Day of Discharge Additional Orders: Wound care as directed by wound care nursing Day of Discharge: 10/07/21 Dietary and Speech Recommendations Dietitian Recommendations/Changes: Will continue diet as ordered Will order Germain bid to help w/ skin healing. Discharge Plan Admission Admit Date/Time: 10/05/21 13:30 Primary Reason for Your Visit: Falls/Debility Attending Provider: Colleen Boone Primary Care Provider: Radha Sebastian NP Discharge Orders/Prescriptions Prescriptions: New acetaminophen [Tylenol] 325 mg Tablet 650 mg PO Q6H PRN PRN (Reason: Pain Score 1-10/Temp > 100.7 F) Qty: 0 RF: 0 cephalexin 500 mg capsule 500 mg PO Q12H Qty: 3 RF: 0 Continued venlafaxine 75 MG tablet 75 mg PO DAILY PRN (Reason: DEPRESSION) RF: 0 lisinopril 20 MG tablet 20 mg PO Q3D RF: 0 cholecalciferol (vitamin D3) [Vitamin D3] 1,000 UNIT tablet 3,000 unit PO DAILY RF: 0 ascorbic acid (vitamin C) 250 MG tablet,chewable 250 mg PO DAILY RF: 0 ferrous sulfate 325 MG tablet 325 mg PO Q2D RF: 0 bacitracin 500 unit/gram ointment 1 applic TOPICAL TID RF: 0 nystatin 100,000 unit/gram powder 1 applic TOPICAL BIDCM PRN (Reason: redness) RF: 0 Referrals / Follow Up: Radha Sebastian COOK PICKLED MEAT, COOK PICKLED MEAT-C [Primary Care Provider] - Within 1 Month Disposition Disposition (needs filled in before D/C Order can be placed): [facility]
--- NOTE | 2021-10-07 10:49 | CASEMGMT ---
Social Work Pt requesting to complete advance directives. SW assisted pt in completing living will and Health Care POA naming her son Lucho Lee. Original given to pt and copy placed on pt chart. EFRA Jo
--- NOTE | 2021-10-07 12:19 | CASEMGMT ---
Social Work Note SW completed [facility] in [facility]. BERNARDINO faxed completed discharge paperwork to Noel at [facility] including transfer to extended care facility, signed medication list, any scripts, COVID test/tool, and [facility]. Original in SNF folder and copy on pt's chart. BERNARDINO spoke with RN, pt to transport via cot. SW accessed trip assist and arranged transportation via cot for 2:00pm. Transportation form completed and placed on SNF folder and copy on pt's chart. BERNARDINO updated RN on transportation time. BERNARDINO placed a call to Noel at [facility] and updated him on transportation time. BERNARDINO placed a call to pt's son Lucho and updated him on transportation time. SW updated pt on discharge and transportation time. Plan: [facility] skilled today under Convalescent stay with [facility] transporting pt via cot at 2:00pm Mari Cano MSW, HISTOLOGIC TECHNICIAN
== END 2021-10-07 14:10 | disposition skilled nursing facility (03) | DRG 558 ==
LOC: ED 12:02 → MS3 13:38
PROVIDERS: Admitting Provider Student in an Organized Health Care Education/Training Program; Emergency Provider Emergency Medicine; PCP Nurse Practitioner; Visit Provider Internal Medicine
DX: M62.82 Rhabdomyolysis (principal); Z68.44 Body mass index [BMI] 60.0-69.9, adult; S22.41XA Multiple fractures of ribs, right side, initial encounter for closed fracture; N30.00 Acute cystitis without hematuria; D69.6 Thrombocytopenia, unspecified; B36.9 Superficial mycosis, unspecified; K75.81 Nonalcoholic steatohepatitis (NASH); E66.01 Morbid (severe) obesity due to excess calories; D75.89 Other specified diseases of blood and blood-forming organs; E78.5 Hyperlipidemia, unspecified; I10 Essential (primary) hypertension; B96.20 Unspecified Escherichia coli [E. coli] as the cause of diseases classified elsewhere; W01.10XA Fall on same level from slipping, tripping and stumbling with subsequent striking against unspecified object, initial encounter; M47.816 Spondylosis without myelopathy or radiculopathy, lumbar region; M47.817 Spondylosis without myelopathy or radiculopathy, lumbosacral region; S00.83XA Contusion of other part of head, initial encounter; S80.822A Blister (nonthermal), left lower leg, initial encounter; S40.221A Blister (nonthermal) of right shoulder, initial encounter; S40.222A Blister (nonthermal) of left shoulder, initial encounter; M79.662 Pain in left lower leg; M25.562 Pain in left knee; S00.11XA Contusion of right eyelid and periocular area, initial encounter; G89.11 Acute pain due to trauma; F32.A Depression, unspecified; R53.81 Other malaise; R94.4 Abnormal results of kidney function studies; R29.6 Repeated falls; Z66 Do not resuscitate; Z79.899 Other long term (current) drug therapy
CPT/HCPCS: 70450; 70486; 71045; 72170; 73560; 73590; 80048; 80053; 81001; 82550; 85025; 86140; 87086; 87088; 87186; 87426; 90715; 93005; 97110; 97163; 97167; 97530; 97802; 99285; J7030; A4216; J2405

== ENCOUNTER 2021-10-22 14:57 | Inpatient (IN) | payer MEDICARE, OTHER, SELFPAY ==
[2021-10-22] VITALS (9 sets, daily range): BP systolic 100–175; BP diastolic 44–135; PULSE 71–87; RESP 16–18; TEMP 36.4–36.7; O2SAT 93–97; BMI 63.6; BMI 60.7
--- NOTE | 2021-10-22 15:13 | EKG12_ITS ---
Test Reason : WOUND Blood Pressure : / mmHG Vent. Rate : 078 BPM Atrial Rate : 078 BPM P-R Int : 184 ms QRS Dur : 086 ms QT Int : 402 ms P-R-T Axes : 026 -34 066 degrees QTc Int : 458 ms Normal sinus rhythm Left axis deviation Low voltage QRS Abnormal ECG Confirmed by TUNDE DAI, JACKY ([id number]), order editor ILENE BRODY ([id number]) on 10/26/2021 10:32:52 AM Referred By: BERRY Confirmed By:JACKY GRIFFITHS MD
--- NOTE | 2021-10-22 15:23 | ED.VIS.LOWEX ---
HPI History of Present Illness Chief Complaint: Wound Narrative Narrative: Patient presents with left lower extremity wound. She states that she used to live in a trailer by herself. Was reported that she fell a few weeks ago and is now currently in a custodial facility. They sent her in because of necrotic tissue to her left lower extremity. She is immobile and states that she does not ambulate. She states the wound is on the back of her leg. She denies any fevers or chills. No nausea or vomiting. No other symptoms. [facility] Medical History Blisters of multiple sites Blunt trauma of face Breast cancer Cholecystectomy planned Chronic pain Closed head injury Debility GERD (gastroesophageal reflux disease) Gout Hypertension Kidney stones Lupus Migraines Morbidly obese Non-smoker Osteoporosis Rheumatoid arthritis Right rib fracture Sinus pressure Sleep apnea Thrombocytopenia Home Medications cholecalciferol (vitamin D3) [Vitamin D3] 1,000 unit PO DAILY 04/15/17 [History Last Taken 10/05/21] lisinopril 20 mg PO Q3D 04/15/17 [History Last Taken 10/04/21] venlafaxine 75 mg PO DAILY 04/15/17 [History Last Taken Unknown] ascorbic acid (vitamin C) 250 mg PO DAILY 09/03/20 [History Last Taken 10/04/21] ferrous sulfate 325 mg PO Q2D 09/03/20 [History Last Taken 10/04/21] bacitracin 1 applic TOPICAL TID 10/05/21 [History Last Taken 10/04/21] nystatin 1 applic TOPICAL BIDCM PRN 10/05/21 [History Last Taken 10/04/21] acetaminophen [Tylenol] 650 mg PO Q6H PRN PRN #0 tab 10/07/21 [Rx Last Taken Unknown] buspirone 5 mg PO TID 10/22/21 [History Last Taken Unknown] cefadroxil 500 mg PO DAILY 10/22/21 [History Last Taken Unknown] collagenase clostridium histo. [Santyl] 1 applic TOPICAL TID 10/22/21 [History Last Taken Unknown] doxycycline hyclate 100 mg PO BID 10/22/21 [History Last Taken Unknown] tramadol 50 mg PO Q6H PRN 10/22/21 [History Last Taken Unknown] Allergy/AdvReac Type Severity Reaction Status Date / Time erythromycin base Allergy Rash Verified 10/22/21 16:41 Fish Containing Products Allergy Swelling Verified 10/22/21 16:41 iodine Allergy Rash Verified 10/22/21 16:41 Penicillins [PCN] Allergy Rash Verified 10/22/21 16:41 Sulfa (Sulfonamide Allergy Rash Verified 10/22/21 16:41 Antibiotics) Surgical History H/O hernia repair H/O: hysterectomy History of tonsillectomy Social History Smoking Status: Never smoker ROS ROS ED ROS Narrative Constitutional: No fever, no chills. HEENT: No sore throat. No neck pain. No loss of vision. No rhinorrhea. Cardiovascular: No chest pain. No palpitations. No pedal edema. Respiratory: No cough, no shortness of breath. Abdominal: No abdominal pain. No nausea. No vomiting. Genitourinary: No dysuria. No hematuria. Musculoskeletal: No myalgias. No arthralgias. Neurologic: No headaches. No dizziness. No lightheadedness. Skin: No rash. No change in color. Reported necrotic tissue left lower extremity. Psychiatric: No depression. No anxiety. EXAM Physical Exam Narrative Exam Narrative: Afebrile. Vital signs noted. HEENT: Normocephalic. Atraumatic. PERRL, EOMI. Neck soft and supple. No point tenderness or step off. Cardiovascular: Regular rate and rhythm. No murmurs, rubs, or gallops appreciated. Respiratory: No tachypnea. Lungs clear to auscultation bilaterally. Gastrointestinal: Abdomen soft, nontender, with normoactive bowel sounds. No rebound or guarding. Neurological: Awake. Alert. Nonfocal, nonlateralizing. Skin: Left lower extremity bandaged and gauze, recently changed today. Musculoskeletal: No pedal edema. Full range of motion extremities. Const Vital Signs: 10/22/21 14:58 10/22/21 15:44 10/22/21 15:45 Temperature 97.6 F L Temperature Source Temporal Pulse Rate 87 76 Respiratory Rate 18 18 Blood Pressure 175/135 H 111/58 L Blood Pressure Mean 148 75 Pulse Ox 96 95 94 Oxygen Delivery Method Room Air Room Air Room Air 10/22/21 15:46 10/22/21 16:44 Temperature 98.0 F Temperature Source Oral Pulse Rate 72 Respiratory Rate 18 Blood Pressure Blood Pressure Mean Pulse Ox 93 Oxygen Delivery Method Room Air MDM MDM MDM Narrative Medical decision making narrative: Her wound will be uncovered for inspection. Sepsis work-up was pursued. Patient has more of a open wound of the popliteal fossa of her left lower extremity. She has a normal white count of 4.9, hemoglobin stable 11.8, hematocrit 34.6. Thrombocytopenic at 128 platelets. Coags are negative. Electrolyte panel is grossly unremarkable except for alk phos slightly elevated at 118 with an AST of 83 which I think is nonspecific. Lactic acid normal at 1.5. Chest x-ray is read by myself shows no acute process, no infiltrate. X-rays of the tibia/fibula show no gas in the tissue, no evidence of fracture, and this was also read by myself, then confirmed with radiology. Patient was sent in from [facility]. They are having problems managing her popliteal fossa wound. She will be started on vancomycin as she has multiple allergies to penicillins, sulfas, and erythromycin. She was administered 2 g. I will discuss with the hospitalist for admission versus observation for wound care consultation. Patient is in stable condition. I discussed patient with Dr. Bruner. He will admit her to the PCU. He will also be in touch with Dr. Agee for possible wound debridement. Patient will also be started on Flagyl at his request. Disposition is admit in stable condition. Lab Data Attestation: I reviewed the patient's lab results. Labs: Laboratory Results - last 24 hr 10/22/21 10/22/21 10/22/21 15:25 15:25 15:25 WBC 4.9 RBC 3.26 L Hgb 11.8 L Hct 34.6 L MCV 106.1 H MCH 36.2 H MCHC 34.1 RDW Std Deviation 59.2 H RDW Coeff of Pako 15.2 H Plt Count 128 L MPV 9.3 Immature Gran % (Auto) 0.400 Neut % (Auto) 65.8 Lymph % (Auto) 25.7 Dillon % (Auto) 6.3 Eos % (Auto) 0.8 Baso % (Auto) 1.0 Absolute Neuts (auto) 3.3 Absolute Lymphs (auto) 1.27 Nucleated RBC % 0 PT 15.9 H INR 1.3 APTT 32.9 Sodium 136 Potassium 5.1 Chloride 106 Carbon Dioxide 27.0 Anion Gap 3 L BUN 33 H Creatinine 0.66 Estim Creat Clear Calc 34.91 Est GFR (MDRD) Af Amer 112 Est GFR (MDRD) Non-Af 92 BUN/Creatinine Ratio 49.8 H Glucose 91 Lactic Acid Calcium 9.1 Total Bilirubin 0.80 AST 83 H ALT 41 Alkaline Phosphatase 118 H Total Protein 5.7 L Albumin 1.6 L Globulin 4.1 Albumin/Globulin Ratio 0.4 L Urine Color Urine Clarity Urine pH Ur Specific [place] Urine Protein Urine Glucose (UA) Urine Ketones Urine Occult Blood Urine Nitrite Urine Bilirubin Urine Urobilinogen Ur Leukocyte Esterase 10/22/21 10/22/21 15:25 16:20 WBC RBC Hgb Hct MCV MCH MCHC RDW Std Deviation RDW Coeff of Pako Plt Count MPV Immature Gran % (Auto) Neut % (Auto) Lymph % (Auto) Dillon % (Auto) Eos % (Auto) Baso % (Auto) Absolute Neuts (auto) Absolute Lymphs (auto) Nucleated RBC % PT INR APTT Sodium Potassium Chloride Carbon Dioxide Anion Gap BUN Creatinine Estim Creat Clear Calc Est GFR (MDRD) Af Amer Est GFR (MDRD) Non-Af BUN/Creatinine Ratio Glucose Lactic Acid 1.5 Calcium Total Bilirubin AST ALT Alkaline Phosphatase Total Protein Albumin Globulin Albumin/Globulin Ratio Urine Color Yellow Urine Clarity Clear Urine pH 6.0 Ur Specific [place] 1.020 Urine Protein Negative Urine Glucose (UA) Normal Urine Ketones 5 H Urine Occult Blood Negative Urine Nitrite Negative Urine Bilirubin Negative Urine Urobilinogen 1 H Ur Leukocyte Esterase Negative Radiography Diagnostic Testing: Clinical Impression(s) from Imaging Studies Chest X-Ray 10/22/21 15:55 IMPRESSION: Emphysema without pneumonia or atelectasis. Electronically Signed: Da Steven MD at 16:12 EDT , Tibia/Fibula X-Ray 10/22/21 16:00 IMPRESSION: Normal x-ray examination of the tibia and fibula. Electronically Signed: Da Steven MD at 16:12 EDT , Discharge Plan Dx/Rx/DC Orders Clinical Impression: Leg wound, left Disposition Disposition: Acute Care Hospital [facility]
[2021-10-22 15:43] LABS: Absolute Lymphocyte Count 1.27 X10^3/uL (0.83-4.51); Absolute Neutrophil Count 3.3 X10^3/uL (2.0-7.7); Basophil# 0.05 X10^3/uL; Eosinophil# 0.04 X10^3/uL; Eosinophils% 0.8 % (0-5); Hematocrit 34.6 % (37-47); Hemoglobin 11.8 g/dL (12.0-15.0); Lymphocyte # 1.27 X10^3/ul (0.83-4.51); Lymphocyte % 25.7 % (19-41); Mean Corp Hgb Conc 34.1 g/dL (32-36); Mean Corpuscular Hgb 36.2 pg (27.0-32.0); Mean Corpuscular Volume 106.1 fL (81-99); Mean Platelet Vol. 9.3 fl (6.2-12.0); Monocyte# 0.31 X10^3/uL; Monocyte% 6.3 % (0-10); NRBC Flagged by Analyzer 0 % (0-5); Neutrophil # 3.25 X10^3/uL (2.7-7.7); Neutrophil % 65.8 % (47-70); Platelet Count 128 K/mm3 (150-450); RBC Distribution Width CV 15.2 % (11.6-14.6); RBC Distribution Width SD 59.2 fl (35.1-43.9); Red Blood Count 3.26 M/mm3 (4.2-5.4); White Blood Count 4.9 K/mm3 (4.4-11.0)
[2021-10-22 15:49] LABS: International Normalized Ratio 1.3; Prothrombin Time (Protime)PT. 15.9 SECONDS (11.7-14.9)
[2021-10-22 15:50] LABS: Partial Thromboplast Time 32.9 Seconds (24.1-36.2)
--- NOTE | 2021-10-22 15:55 | RAD_ITS ---
STUDY: X-RAY CHEST REASON FOR EXAM: Female, 76 years old. CAD TECHNIQUE: Single AP portable view of the chest. COMPARISON: 10/05/2021 FINDINGS: Status post right axillary lymph node dissection. There is hyperinflation of the lungs consistent with chronic obstructive lung disease (COPD). There is no demonstrated pleural abnormality. Normal size heart. Normal mediastinum and josefina. Normal visualized pulmonary arteries. Normal visualized aortic arch and descending thoracic aorta. Normal visualized thoracic spine. Normal visualized ribs, clavicles, and shoulders. There is no demonstrated abnormality of the visualized soft tissue structures of the upper abdomen. RAD/Chest 1 View (Portable) IMPRESSION: Emphysema without pneumonia or atelectasis. Electronically Signed: Da Steven MD at 16:12 EDT ,
[2021-10-22 15:58] LABS: ALB/GLOB Ratio 0.4 RATIO (0.9-2.4); AST(SGOT) 83 U/L (15-37); Alanine Aminotransfer ALT/SGPT 41 U/L (13-56); Albumin, Serum 1.6 g/dL (3.2-5.0); Alkaline Phosphatase 118 U/L (45-117); Anion Gap 3 (5-15); BUN 33 mg/dL (7-18); BUN/Creat Ratio 49.8 RATIO (10-20); Calcium,Total 9.1 mg/dL (8.5-10.1); Chloride 106 mmol/L (98-107); Creatinine, Serum 0.66 mg/dL (0.55-1.02); EST Glomerular Filtration Rate 92 mL/min (>60); Est Glom Filt Rate - Afr Amer 112 mL/min (>60); Estimated Creatinine Clearance 34.91 ml/min; Globulin 4.1 g/dL (2.2-4.2); Glucose 91 mg/dL (74-106); Potassium 5.1 mmol/L (3.5-5.1); Protein, Total 5.7 g/dL (6.4-8.2); Sodium Level 136 mmol/L (136-145)
--- NOTE | 2021-10-22 16:00 | RAD_ITS ---
STUDY: X-RAY - LEFT TIBIA AND FIBULA REASON FOR EXAM: Female, 76 years old. pain TECHNIQUE: 3 view(s) of the tibia and fibula were obtained. COMPARISON: None. FINDINGS: Normal visualized tibia. Normal visualized fibula. The soft tissue structures are unremarkable. RAD/Tibia & Fibula 2 Views IMPRESSION: Normal x-ray examination of the tibia and fibula. Electronically Signed: Da Steven MD at 16:12 EDT ,
[2021-10-22 16:15] LABS: Lactic Acid 1.5 mmol/L (0.4-1.9)
[2021-10-22 16:31] LABS: Bacteria 0 SEEN /hpf (None Seen); Mucous, Urine 0 SEEN /hpf (<or=2+); Red Blood Cells-Urine 0 SEEN /hpf (0-5); White Blood Cells 0 SEEN /hpf (0-5)
[2021-10-22 16:40] LABS: Color, Urine Yellow (Yellow); Glucose, Dipstick Normal (Normal); Ketone-Dipstick 5 mg/dl (Negative); Leukocyte Esterase-Dipstick Negative /ul (Negative); Nitrite-Dipstick Negative (Negative); Occult Blood-Urine Negative /ul (Negative); Protein-Dipstick Negative (Negative); Urine Bilirubin Dipstick Negative (Negative); Urine Clarity Clear (Clear); Urine Urobilinogen 1 mg/dl (Normal)
--- NOTE | 2021-10-22 16:42 | RAD_ITS ---
STUDY: X-RAY - LEFT KNEE REASON FOR EXAM: Female, 76 years old. wound TECHNIQUE: 2 view(s) of the knee. COMPARISON: 10/06/2021. FINDINGS: Normal visualized distal femur. Normal visualized proximal tibia and fibula. Normal proximal tibiofibular articulation. Narrowed medial femorotibial compartment with mild valgus deformity. Normal lateral femorotibial compartment. Narrowed patellofemoral articulation. The soft tissue structures are unremarkable. RAD/Knee 1 or 2 Views IMPRESSION: Moderate osteoarthritic change. No acute fracture or other significant bony pathology Electronically Signed: Yuri Whitlock MD at 17:08 EDT ,
[2021-10-22 16:51] LABS: Squamous Epithelial Cells - UA 0-5 SEEN /hpf (5-10)
--- NOTE | 2021-10-22 16:55 | CT_ITS ---
CT of the left lower extremity without contrast INDICATION: Open popliteal injury TECHNIQUE: CT of left lower extremity was performed scanning from the mid thigh to the mid calf the axial projection without contrast followed by sagittal and coronal reconstructions. Radiographic technique was optimized to limit patient radiation dose. DLP was [id number] FINDINGS: Diffuse nonspecific edematous changes or cellulitis in the subcutaneous fat. No evidence for acute fracture. No lytic destructive changes are seen Severe narrowing of medial compartment of the joint and lateral compartment of the patellofemoral joint. There is associated small bursal effusion.. There is an open wound noted within the posterior soft tissues with tiny air bubbles in the subcutaneous fat and phlegmonous changes but no well-defined abscess. CT/Extremity Lower without Contra IMPRESSION: Phlegmonous changes within the soft tissues of the posterior knee with tiny air bubbles. Gangrenous changes not entirely excluded. No focal well-defined abscess identified or evidence for acute osteomyelitis Electronically Signed: Yuri Whitlock MD at 17:47 EDT ,
[2021-10-22] MEDS: metroNIDAZOLE 500 MG/100 ML BAG 100 MG IV (17:23)
--- NOTE | 2021-10-22 18:56 | PCM.HP.STD ---
HPI - General General Date of Admission: 10/22/21 Date of Service: 10/22/21 Chief Complaint: Nonhealing deep wound to left popliteal space HPI Narrative [place] NAM, is a 76 F who presents to the emergency room at [facility] from a local extended care facility at which she is receiving inpatient rehab services due to a nonhealing wound with purulent drainage, evidence of necrosis, and odoriferous drainage from the left popliteal space. Patient had recently been hospitalized at [facility] after sustaining a fall at her home, she was not able to care for herself and went to an extended care facility for inpatient rehab services-she was admitted to [facility] in [facility] on 10/07/2021. She had been receiving oral antibiotics for a left popliteal space deep wound. Today it did not appear that this area was healing properly and she was told she needed to be seen in the emergency room at [facility] but the patient decided she would come back to [facility] for reevaluation in the emergency room. Labs obtained in the emergency room today included a CBC which was remarkable for hemoglobin of 11.8, patient's white blood cell count was normal, patient's chemistry profile was remarkable for a BUN of 33, AST was elevated at 83, alkaline phosphatase was elevated at 118. Urinalysis was unremarkable, plastic surgery was contacted and requested a CT of the left popliteal area be obtained, the CT showed phlegmonous changes within the soft tissue of the posterior knee with tiny air bubbles visible, gangrenous changes were not totally excluded. No local well-defined abscess was identified and there was no evidence for osteomyelitis. Patient was given IV vancomycin in the emergency room, she was admitted to PCU for further care for deep wound infection of the left popliteal fossa. She will be seen by plastic surgery as well as infectious diseases. She will also be seen by the wound care nurse tomorrow. [facility] Medical History (Updated 10/22/21 @ 18:37 by Kaycee Santiago) Bipolar disorder Blisters of multiple sites Blunt trauma of face Breast cancer Cholecystectomy planned Chronic pain Cirrhosis Closed head injury Debility GERD (gastroesophageal reflux disease) Gout Hypertension Kidney stones Lupus Migraines Morbidly obese Non-smoker Osteoporosis Pulmonary embolism Rheumatoid arthritis Right rib fracture Sinus pressure Sleep apnea Thrombocytopenia Home Medications cholecalciferol (vitamin D3) [Vitamin D3] 1,000 unit PO DAILY 04/15/17 [History Last Taken 10/05/21] lisinopril 20 mg PO Q3D 04/15/17 [History Last Taken 10/04/21] venlafaxine 75 mg PO DAILY 04/15/17 [History Last Taken Unknown] ascorbic acid (vitamin C) 250 mg PO DAILY 09/03/20 [History Last Taken 10/04/21] ferrous sulfate 325 mg PO Q2D 09/03/20 [History Last Taken 10/04/21] bacitracin 1 applic TOPICAL TID 10/05/21 [History Last Taken 10/04/21] nystatin 1 applic TOPICAL BIDCM PRN 10/05/21 [History Last Taken 10/04/21] acetaminophen [Tylenol] 650 mg PO Q6H PRN PRN #0 tab 10/07/21 [Rx Last Taken Unknown] buspirone 5 mg PO TID 10/22/21 [History Last Taken Unknown] cefadroxil 500 mg PO DAILY 10/22/21 [History Last Taken Unknown] collagenase clostridium histo. [Santyl] 1 applic TOPICAL TID 10/22/21 [History Last Taken Unknown] doxycycline hyclate 100 mg PO BID 10/22/21 [History Last Taken Unknown] tramadol 50 mg PO Q6H PRN 10/22/21 [History Last Taken Unknown] Allergy/AdvReac Type Severity Reaction Status Date / Time erythromycin base Allergy Rash Verified 10/22/21 16:41 Fish Containing Products Allergy Swelling Verified 10/22/21 16:41 iodine Allergy Rash Verified 10/22/21 16:41 Penicillins [PCN] Allergy Rash Verified 10/22/21 16:41 Sulfa (Sulfonamide Allergy Rash Verified 10/22/21 16:41 Antibiotics) Surgical History (Updated 10/22/21 @ 18:37 by Kaycee Santiago) H/O hernia repair H/O: hysterectomy History of appendectomy History of cholecystectomy History of tonsillectomy Social History Smoking Status: Never smoker ROS Constitutional Constitutional: Reports weakness; Denies anorexia, change in weight, fever(s) or night sweats Eyes Eyes: Denies blurry vision, change in vision, discharge from eye(s) or eye pain Cardiovascular Cardiovascular: Denies chest pain, claudication, edema or palpitations Respiratory/Chest Respiratory/Chest: Denies cough, hemoptysis, productive cough, shortness of breath at rest or shortness of breath with exertion Gastrointestinal Gastrointestinal: Denies abdominal pain, constipation, diarrhea, dyspepsia, hematemesis, hematochezia, melena, nausea or vomiting Genitourinary Genitourinary: Denies dysuria, hematuria, urinary frequency, urinary hesitancy, urinary incontinence or urinary urgency Musculoskeletal Musculoskeletal: Denies back pain, joint pain, joint stiffness, joint swelling, myalgias or neck pain Neurologic Neurologic: Denies abnormal gait, abnormal speech, dizziness, focal weakness, headache(s), loss of vision, numbness, other visual disturbances, paresthesias, syncope or tingling Psychiatric Psychiatric: Denies anxiety, cognitive impairment, depression, irritability, mood swings or suicidal ideation Endocrine Endocrinology: Denies change in body appearance, cold intolerance, excessive sweating, heat intolerance, polydipsia or polyuria Hematologic/Lymphatic Hematologic/Lymphatic: Denies none, anemia, easy bleeding, easy bruising or lymphadenopathy Allergic/Immunologic Allergic/Immunologic: Denies rhinitis, urticaria, eczemia or asthma Vital Signs Vital Signs Vital Signs: 10/22/21 14:58 10/22/21 15:44 10/22/21 15:45 Temperature 97.6 F L Temperature Source Temporal Pulse Rate 87 76 Respiratory Rate 18 18 Respiratory Effort Blood Pressure 175/135 H 111/58 L Blood Pressure Mean 148 75 Blood Pressure Source Blood Pressure Position Blood Pressure Location Pulse Ox 96 95 94 Oxygen Delivery Method Room Air Room Air Room Air 10/22/21 15:46 10/22/21 16:44 10/22/21 16:54 Temperature 98.0 F 97.7 F L Temperature Source Oral Oral Pulse Rate 72 71 Respiratory Rate 18 18 Respiratory Effort Blood Pressure 105/44 L Blood Pressure Mean 64 Blood Pressure Source Blood Pressure Position Blood Pressure Location Pulse Ox 93 93 Oxygen Delivery Method Room Air Room Air 10/22/21 18:30 10/22/21 18:39 Temperature 98.1 F Temperature Source Temporal Pulse Rate 78 Respiratory Rate 16 Respiratory Effort Normal Non-Labored Blood Pressure 118/48 L Blood Pressure Mean 71 Blood Pressure Source Monitor Blood Pressure Position Sitting Blood Pressure Location Right Arm Pulse Ox 97 Oxygen Delivery Method Room Air Room Air Weight Weight: 141.1 kg Body Mass Index (BMI) 60.7 Physical Exam Const alert, oriented x3 and no apparent distress Constitutional Narrative: Patient appears older than her stated age, she is morbidly obese General Appearance: cooperative, well kempt and well developed Orientation / Consciousness: awake, oriented to person, oriented to place and oriented to time Nutritional Appearance: morbidly obese HEENT normocephalic, head/scalp atraumatic, hearing grossly normal bilaterally and moist oral mucous membranes Eyes PERRL, EOMs intact bilaterally and conjunctivae normal Neck nuchal rigidity, supple, no JVD and thyroid normal General: trachea midline Resp normal respiratory effort, no retractions, no use of accessory muscles and clear to auscultation bilaterally Auscultation: Negative for rales, rhonchi or wheezes Cardio regular rate, regular rhythm, S1 normal heart sound, S2 normal heart sound, no murmurs, no rub and no gallops GI normal to inspection, nondistended, normoactive bowel sounds, soft to palpation, non-tender and non-distended Extremity no clubbing, cyanosis or edema Extremity Narrative: There is noted to be a deep wound of the left popliteal area with associated purulent drainage and odoriferous drainage, there is also noted to be necrotic tissue present in the area. This area is tender to palpation. Skin Skin Narrative: There is a deep wound infection noted of the left popliteal area with associated necrotic tissue present, odor, and purulent drainage. General Skin Exam: no breakdown Neuro oriented x3, CN's II-XII intact bilaterally, no focal motor deficits and no sensory deficits noted Sensorium / Orientation: awake and alert Speech: speech normal Psych affect normal Results Lab / Micro Data Result Diagrams: 10/22/21 15:25 10/22/21 15:25 Labs: Laboratory Results - last 24 hr 10/22/21 15:25: WBC 4.9, RBC 3.26 L, Hgb 11.8 L, Hct 34.6 L, MCV 106.1 H, MCH 36.2 H, MCHC 34.1, RDW Std Deviation 59.2 H, RDW Coeff of Pako 15.2 H, Plt Count 128 L, MPV 9.3, Immature Gran % (Auto) 0.400, Neut % (Auto) 65.8, Lymph % (Auto) 25.7, [place] % (Auto) 6.3, Eos % (Auto) 0.8, Baso % (Auto) 1.0, Absolute Neuts (auto) 3.3, Absolute Lymphs (auto) 1.27, Nucleated RBC % 0 10/22/21 15:25: PT 15.9 H, INR 1.3, APTT 32.9 10/22/21 15:25: Sodium 136, Potassium 5.1, Chloride 106, Carbon Dioxide 27.0, Anion Gap 3 L, BUN 33 H, Creatinine 0.66, Estim Creat Clear Calc 34.91, Est GFR (MDRD) Af Amer 112, Est GFR (MDRD) Non-Af 92, BUN/Creatinine Ratio 49.8 H, Glucose 91, Calcium 9.1, Total Bilirubin 0.80, AST 83 H, ALT 41, Alkaline Phosphatase 118 H, Total Protein 5.7 L, Albumin 1.6 L, Globulin 4.1, Albumin/Globulin Ratio 0.4 L 10/22/21 15:25: Lactic Acid 1.5 10/22/21 16:20: Urine Color Yellow, Urine Clarity Clear, Urine pH 6.0, Ur Specific [place] 1.020, Urine Protein Negative, Urine Glucose (UA) Normal, Urine Ketones 5 H, Urine Occult Blood Negative, Urine Nitrite Negative, Urine Bilirubin Negative, Urine Urobilinogen 1 H, Ur Leukocyte Esterase Negative, Urine RBC 0 SEEN, Urine WBC 0 SEEN, Ur Squamous Epith Cells 0-5 SEEN, Urine Bacteria 0 SEEN, Urine Mucus 0 SEEN Radiology Impression Chest X-Ray 10/22/21 15:55 IMPRESSION: Emphysema without pneumonia or atelectasis. Electronically Signed: Da Steven MD at 16:12 EDT , Tibia/Fibula X-Ray 10/22/21 16:00 IMPRESSION: Normal x-ray examination of the tibia and fibula. Electronically Signed: Da Steven MD at 16:12 EDT , Knee X-Ray 10/22/21 16:42 IMPRESSION: Moderate osteoarthritic change. No acute fracture or other significant bony pathology Electronically Signed: Yuri Whitlock MD at 17:08 EDT , Lower Extremity CT 10/22/21 16:55 IMPRESSION: Phlegmonous changes within the soft tissues of the posterior knee with tiny air bubbles. Gangrenous changes not entirely excluded. No focal well-defined abscess identified or evidence for acute osteomyelitis Electronically Signed: Yuri Whiltock MD at 17:47 EDT , Assessment & Plan Assessment/Plan (1) Leg wound, left: PLAN: 1. Left deep popliteal space wound infection-patient will be admitted to PCU, wound cultures were obtained, she will be seen in consultation by plastic surgery and infectious diseases. Patient will be placed on IV vancomycin and IV meropenem. Patient will need surgical debridement of the area, hopefully this can be performed tomorrow. Patient will be seen by the wound care nurse. #2 morbid obesity-patient will be seen by nutritional services, complicates care and recovery #3 generalized debility-patient will be seen by PT and OT, she will need to go to an extended care facility at the time of discharge from the hospital here for further rehab services. #4 essential hypertension-patient will remain on lisinopril #5 chronic depression-patient is on Effexor #6 mycotic skin infections of intertriginous folds-nystatin powder is being used Charges/Coding Visit Charges Inpatient E&M: 61895 Init Hosp L3
--- NOTE | 2021-10-22 18:58 | CM.ED ---
ER RNCM Re-Admit Note: Admitted 10/05-10/07/21 for Mechanical fall and Rhabdo. Patient tx for UTI and converted to oral Keflex. Multiple small wounds, Dc'd to [facility] skilled for wound care, PT. Patient with debility x7 months prior to this and had not left home per documentation with previous falls. Re-admitted 10/22/21 from skilled d/t LLW wound necrotic, patient immobile and not ambulating. Patient plan to return to SNF post medical stabilization. Nguyễn Franklin RNCM
--- NOTE | 2021-10-22 19:46 | PCM.RX.CS ---
Consult Pharmacy has been consulted to manage selected antiobiotic: Vancomycin Type of Consult: New start Suspected Infection: Skin/Soft tissue Labs: Sodium 136 mmol/L (136-145) 10/22/21 15:25 Potassium 5.1 mmol/L (3.5-5.1) 10/22/21 15:25 Chloride 106 mmol/L (98-107) 10/22/21 15:25 Carbon Dioxide 27.0 mmol/L (21.0-32.0) 10/22/21 15:25 Anion Gap 3 (5-15) L 10/22/21 15:25 BUN 33 mg/dL (7-18) H 10/22/21 15:25 Creatinine 0.66 mg/dL (0.55-1.02) 10/22/21 15:25 Est GFR (MDRD) Af Amer 112 mL/min (>60) 10/22/21 15:25 Est GFR (MDRD) Non-Af 92 mL/min (>60) 10/22/21 15:25 BUN/Creatinine Ratio 49.8 RATIO (10-20) H 10/22/21 15:25 Glucose 91 mg/dL (74-106) 10/22/21 15:25 Goal Trough: 15-20 mcg/mL Pharmacy Plan for Drug Dosing: NEW START IV VANCOMYCIN Consulting Physician: DR. ARGUETA Indication: WOUND INFECTION Goal Trough: 15-20 SrCr: 0.66 CrCl: 64 ML/MIN (USING AdjBW) Comments: initial 2g IV x1 ordered and administered in ED 10/22/21 @1806 Vancomcyin Dose: 1500mg IV Q12hr to start 10/23/21 @0600 Pending Level: 10/24/21 @0530, prior to 4th total dose per protocol Pharmacy Service will continue to monitor and adjust dosing as required.
[2021-10-22] MEDS: 0.9% Normal Saline 1,000 ML 100 ML IV (20:59)
--- NOTE | 2021-10-22 21:01 | NURSING ---
This RN attempted to call Paula to clarify pt's medications schedule, rang a few times w/ no success reaching anyone at this time. Will try to call again later.
[2021-10-22] MEDS: traMADol 50 MG Tablet PO (21:20)
[2021-10-22] MEDS: busPIRone 5 MG Tablet PO (21:20)
[2021-10-22] MEDS: Heparin Injection (Vial) 5,000 UNIT/ML VIAL 5000 UNIT SC (21:20)
[2021-10-22] MEDS: CLARIFY ORDER NOTE ×2 (21:21→21:22)
--- NOTE | 2021-10-22 21:24 | NURSING ---
Per Angelito Gonzalez at [facility] the last time ferrous sulfate was given 03/24 at 8am and linisopril given 03/23 at 8am. Had the nurse fax the sep to the hospital again.
[2021-10-22] MEDS: Ondansetron 4 MG/2 ML Vial IV (21:30)
[2021-10-23] VITALS (12 sets, daily range): BP systolic 80–108; BP diastolic 38–63; PULSE 70–125; RESP 16–18; TEMP 36.4–36.9; O2SAT 93–96
[2021-10-23 05:03] LABS: Absolute Lymphocyte Count 1.17 X10^3/uL (0.83-4.51); Absolute Neutrophil Count 2.8 X10^3/uL (2.0-7.7); Basophil# 0.04 X10^3/uL; Basophil% 0.9 % (0-1); Eosinophil# 0.15 X10^3/uL; Eosinophils% 3.3 % (0-5); Hematocrit 33.2 % (37-47); Hemoglobin 10.9 g/dL (12.0-15.0); Lymphocyte # 1.17 X10^3/ul (0.83-4.51); Lymphocyte % 25.8 % (19-41); Mean Corp Hgb Conc 32.8 g/dL (32-36); Mean Corpuscular Volume 106.8 fL (81-99); Monocyte# 0.38 X10^3/uL; Monocyte% 8.4 % (0-10); NRBC Flagged by Analyzer 0 % (0-5); Neutrophil # 2.76 X10^3/uL (2.7-7.7); Neutrophil % 60.9 % (47-70); Platelet Count 100 K/mm3 (150-450); RBC Distribution Width CV 15.4 % (11.6-14.6); RBC Distribution Width SD 60.7 fl (35.1-43.9); Red Blood Count 3.11 M/mm3 (4.2-5.4); White Blood Count 4.5 K/mm3 (4.4-11.0)
[2021-10-23 05:25] LABS: Anion Gap 3 (5-15); BUN 36 mg/dL (7-18); BUN/Creat Ratio 54.2 RATIO (10-20); Calcium,Total 8.9 mg/dL (8.5-10.1); Chloride 109 mmol/L (98-107); Creatinine, Serum 0.66 mg/dL (0.55-1.02); EST Glomerular Filtration Rate 92 mL/min (>60); Est Glom Filt Rate - Afr Amer 112 mL/min (>60); Estimated Creatinine Clearance 34.91 ml/min; Glucose 79 mg/dL (74-106); Potassium 4.8 mmol/L (3.5-5.1); Sodium Level 138 mmol/L (136-145)
[2021-10-23] MEDS: Heparin Injection (Vial) 5,000 UNIT/ML VIAL 5000 UNIT SC ×3 (05:36→21:52)
[2021-10-23] MEDS: 0.9% Normal Saline 1,000 ML 500 ML IV (09:07)
--- NOTE | 2021-10-23 09:35 | PCM.PROGNOTE ---
Subjective Subjective Patient was seen and examined today, patient's fluids were stopped last night by nursing-is unclear why, patient's blood pressure today is 80/42, I have ordered a fluid bolus and resumption of fluid after the bolus. Patient will be seen by plastic surgery today, it is anticipated that she will go to surgery today for debridement of the left popliteal deep wound. Objective Data Objective Data Vital Signs: Vital Signs Temp Pulse Resp BP Pulse Ox 98.5 F 77 18 80/42 L 94 10/23/21 08:38 10/23/21 08:38 10/23/21 08:38 10/23/21 08:38 10/23/21 08:38 Oxygen Delivery Method Room Air Weight: 141.1 kg Body Mass Index (BMI) 60.7 Intake & Output: Intake and Output for Last 24 Hours 10/21/21 10/22/21 10/23/21 23:59 23:59 23:59 Intake Total 640 / 740 1855.59 / 1855.59 Output Total 250 / 250 Balance 640 / 540 1605.59 / 1605.59 Lab / Micro Data Result Diagrams: 10/23/21 04:40 10/23/21 04:40 Labs: Laboratory Results - last 24 hr 10/22/21 15:25: WBC 4.9, RBC 3.26 L, Hgb 11.8 L, Hct 34.6 L, MCV 106.1 H, MCH 36.2 H, MCHC 34.1, RDW Std Deviation 59.2 H, RDW Coeff of Pako 15.2 H, Plt Count 128 L, MPV 9.3, Immature Gran % (Auto) 0.400, Neut % (Auto) 65.8, Lymph % (Auto) 25.7, [place] % (Auto) 6.3, Eos % (Auto) 0.8, Baso % (Auto) 1.0, Absolute Neuts (auto) 3.3, Absolute Lymphs (auto) 1.27, Nucleated RBC % 0 10/22/21 15:25: PT 15.9 H, INR 1.3, APTT 32.9 10/22/21 15:25: Sodium 136, Potassium 5.1, Chloride 106, Carbon Dioxide 27.0, Anion Gap 3 L, BUN 33 H, Creatinine 0.66, Estim Creat Clear Calc 34.91, Est GFR (MDRD) Af Amer 112, Est GFR (MDRD) Non-Af 92, BUN/Creatinine Ratio 49.8 H, Glucose 91, Calcium 9.1, Total Bilirubin 0.80, AST 83 H, ALT 41, Alkaline Phosphatase 118 H, Total Protein 5.7 L, Albumin 1.6 L, Globulin 4.1, Albumin/Globulin Ratio 0.4 L 10/22/21 15:25: Lactic Acid 1.5 10/22/21 16:20: Urine Color Yellow, Urine Clarity Clear, Urine pH 6.0, Ur Specific [place] 1.020, Urine Protein Negative, Urine Glucose (UA) Normal, Urine Ketones 5 H, Urine Occult Blood Negative, Urine Nitrite Negative, Urine Bilirubin Negative, Urine Urobilinogen 1 H, Ur Leukocyte Esterase Negative, Urine RBC 0 SEEN, Urine WBC 0 SEEN, Ur Squamous Epith Cells 0-5 SEEN, Urine Bacteria 0 SEEN, Urine Mucus 0 SEEN 10/23/21 04:40: WBC 4.5, RBC 3.11 L, Hgb 10.9 L, Hct 33.2 L, MCV 106.8 H, MCH 35.0 H, MCHC 32.8, RDW Std Deviation 60.7 H, RDW Coeff of Pako 15.4 H, Plt Count 100 L, MPV 9.0, Immature Gran % (Auto) 0.700, Neut % (Auto) 60.9, Lymph % (Auto) 25.8, [place] % (Auto) 8.4, Eos % (Auto) 3.3, Baso % (Auto) 0.9, Absolute Neuts (auto) 2.8, Absolute Lymphs (auto) 1.17, Nucleated RBC % 0 10/23/21 04:40: Sodium 138, Potassium 4.8, Chloride 109 H, Carbon Dioxide 26.0, Anion Gap 3 L, BUN 36 H, Creatinine 0.66, Estim Creat Clear Calc 34.91, Est GFR (MDRD) Af Amer 112, Est GFR (MDRD) Non-Af 92, BUN/Creatinine Ratio 54.2 H, Glucose 79, Calcium 8.9 Radiography Diagnostic Testing: Radiology Impression Chest X-Ray 10/22/21 15:55 IMPRESSION: Emphysema without pneumonia or atelectasis. Electronically Signed: Da Steven MD at 16:12 EDT , Tibia/Fibula X-Ray 10/22/21 16:00 IMPRESSION: Normal x-ray examination of the tibia and fibula. Electronically Signed: Da Steven MD at 16:12 EDT , Knee X-Ray 10/22/21 16:42 IMPRESSION: Moderate osteoarthritic change. No acute fracture or other significant bony pathology Electronically Signed: Yuri Whitlock MD at 17:08 EDT , Lower Extremity CT 10/22/21 16:55 IMPRESSION: Phlegmonous changes within the soft tissues of the posterior knee with tiny air bubbles. Gangrenous changes not entirely excluded. No focal well-defined abscess identified or evidence for acute osteomyelitis Electronically Signed: Yuri Whitlock MD at 17:47 EDT , Physical Exam Narrative alert, oriented x3 and no apparent distress Constitutional Narrative: Patient appears older than her stated age, she is morbidly obese General Appearance: cooperative, well kempt and well developed Orientation / Consciousness: awake, oriented to person, oriented to place and oriented to time Nutritional Appearance: morbidly obese HEENT normocephalic, head/scalp atraumatic, hearing grossly normal bilaterally and moist oral mucous membranes Eyes PERRL, EOMs intact bilaterally and conjunctivae normal Neck nuchal rigidity, supple, no JVD and thyroid normal General: trachea midline Resp normal respiratory effort, no retractions, no use of accessory muscles and clear to auscultation bilaterally Auscultation: Negative for rales, rhonchi or wheezes Cardio regular rate, regular rhythm, S1 normal heart sound, S2 normal heart sound, no murmurs, no rub and no gallops GI normal to inspection, nondistended, normoactive bowel sounds, soft to palpation, non-tender and non-distended Extremity no clubbing, cyanosis or edema Extremity Narrative: There is noted to be a deep wound of the left popliteal area with associated purulent drainage and odoriferous drainage, there is also noted to be necrotic tissue present in the area. This area is tender to palpation. Skin Skin Narrative: There is a deep wound infection noted of the left popliteal area with associated necrotic tissue present, odor, and purulent drainage. General Skin Exam: no breakdown Neuro oriented x3, CN's II-XII intact bilaterally, no focal motor deficits and no sensory deficits noted Sensorium / Orientation: awake and alert Speech: speech normal Psych affect normal Assessment & Plan Assessment/Plan (1) Leg wound, left: PLAN: 1. Left deep popliteal space wound infection-continue present antibiotic coverage, patient will be seen by infectious diseases today and plastic surgery, it is anticipated that he will go to surgery for debridement of her left popliteal wound. Patient is also being seen by wound care nurse today. #2 morbid obesity-patient will be seen by nutritional services, complicates care and recovery #3 generalized debility-patient will be seen by PT and OT, she will need to go to an extended care facility at the time of discharge from the hospital here for further rehab services. #4 essential hypertension-patient will remain on lisinopril-for now, the lisinopril will be held due to patient's low blood pressure #5 chronic depression-patient is on Effexor #6 mycotic skin infections of intertriginous folds-nystatin powder is being used #7 hypotension-exact etiology is unknown at this morning, patient is asymptomatic, I will give the patient a fluid bolus and resume IV fluids, patient's lisinopril will be held today. Charges/Coding Visit Charges Inpatient E&M: 74875 Subs Hosp L2
--- NOTE | 2021-10-23 09:40 | PCM.CONS.GEN ---
Assessment & Plan Assessment/Plan (1) Leg wound, left: PLAN: Wound cx pending. on vanc/josefina. Has tolerated cephalosporins in the past, will follow cx data. Surgery to see. Will follow, thank you HPI Consult Data Date of Consult: 10/23/21 HPI Narrative HPI Narrative: FRANCE NAM, is a 76 F who presented from [facility] with worsening pain, redness, swelling, induration, and foul odor from L popliteal wound. Has been present for a few months. Admitted in [place] after fall, discharged on keflex for her wound. Finished abx, then had worsening. No fever. Admitted here on vanc/josefina. Feeling ok. Covid vaccine x2, not due for booster. Full ROS performed and neg except as noted above. [facility] Medical History Bipolar disorder Blisters of multiple sites Blunt trauma of face Breast cancer Cholecystectomy planned Chronic pain Cirrhosis Closed head injury Debility GERD (gastroesophageal reflux disease) Gout Hypertension Kidney stones Lupus Migraines Morbidly obese Non-smoker Osteoporosis Pulmonary embolism Rheumatoid arthritis Right rib fracture Sinus pressure Sleep apnea Thrombocytopenia Home Medications cholecalciferol (vitamin D3) [Vitamin D3] 1,000 unit PO DAILY 04/15/17 [History Last Taken 10/05/21] lisinopril 20 mg PO Q3D 04/15/17 [History Last Taken 10/04/21] venlafaxine 75 mg PO DAILY 04/15/17 [History Last Taken Unknown] ascorbic acid (vitamin C) 250 mg PO DAILY 09/03/20 [History Last Taken 10/04/21] ferrous sulfate 325 mg PO Q2D 09/03/20 [History Last Taken 10/04/21] bacitracin 1 applic TOPICAL TID 10/05/21 [History Last Taken 10/04/21] nystatin 1 applic TOPICAL BIDCM PRN 10/05/21 [History Last Taken 10/04/21] acetaminophen [Tylenol] 650 mg PO Q6H PRN PRN #0 tab 10/07/21 [Rx Last Taken Unknown] buspirone 5 mg PO TID 10/22/21 [History Last Taken Unknown] cefadroxil 500 mg PO DAILY 10/22/21 [History Last Taken Unknown] collagenase clostridium histo. [Santyl] 1 applic TOPICAL TID 10/22/21 [History Last Taken Unknown] doxycycline hyclate 100 mg PO BID 10/22/21 [History Last Taken Unknown] tramadol 50 mg PO Q6H PRN 10/22/21 [History Last Taken Unknown] Allergy/AdvReac Type Severity Reaction Status Date / Time erythromycin base Allergy Rash Verified 10/22/21 16:41 Fish Containing Products Allergy Swelling Verified 10/22/21 16:41 iodine Allergy Rash Verified 10/22/21 16:41 Penicillins [PCN] Allergy Rash Verified 10/22/21 16:41 Sulfa (Sulfonamide Allergy Rash Verified 10/22/21 16:41 Antibiotics) Surgical History (Updated 10/22/21 @ 18:37 by Kaycee Santiago) H/O hernia repair H/O: hysterectomy History of appendectomy History of cholecystectomy History of tonsillectomy Social History Smoking Status: Never smoker Physical Exam Const alert, oriented x3 and no apparent distress General Appearance: cooperative Exam Limitations: no limitations HEENT head/scalp atraumatic Eyes PERRL and EOMs intact bilaterally Neck supple and No nodes Resp normal air movement and clear to auscultation bilaterally Cardio regular rate and regular rhythm GI soft to palpation, non-tender and non-distended Extremity General Extremity: edema Skin Skin Narrative: L popliteal wound with inflammation, odor Neuro CN's II-XII intact bilaterally Lab / Micro Data Result Diagrams: 10/23/21 04:40 10/23/21 04:40 Labs: Laboratory Results - last 24 hr 10/22/21 15:25: WBC 4.9, RBC 3.26 L, Hgb 11.8 L, Hct 34.6 L, MCV 106.1 H, MCH 36.2 H, MCHC 34.1, RDW Std Deviation 59.2 H, RDW Coeff of Pako 15.2 H, Plt Count 128 L, MPV 9.3, Immature Gran % (Auto) 0.400, Neut % (Auto) 65.8, Lymph % (Auto) 25.7, Webb % (Auto) 6.3, Eos % (Auto) 0.8, Baso % (Auto) 1.0, Absolute Neuts (auto) 3.3, Absolute Lymphs (auto) 1.27, Nucleated RBC % 0 10/22/21 15:25: PT 15.9 H, INR 1.3, APTT 32.9 10/22/21 15:25: Sodium 136, Potassium 5.1, Chloride 106, Carbon Dioxide 27.0, Anion Gap 3 L, BUN 33 H, Creatinine 0.66, Estim Creat Clear Calc 34.91, Est GFR (MDRD) Af Amer 112, Est GFR (MDRD) Non-Af 92, BUN/Creatinine Ratio 49.8 H, Glucose 91, Calcium 9.1, Total Bilirubin 0.80, AST 83 H, ALT 41, Alkaline Phosphatase 118 H, Total Protein 5.7 L, Albumin 1.6 L, Globulin 4.1, Albumin/Globulin Ratio 0.4 L 10/22/21 15:25: Lactic Acid 1.5 10/22/21 16:20: Urine Color Yellow, Urine Clarity Clear, Urine pH 6.0, Ur Specific [place] 1.020, Urine Protein Negative, Urine Glucose (UA) Normal, Urine Ketones 5 H, Urine Occult Blood Negative, Urine Nitrite Negative, Urine Bilirubin Negative, Urine Urobilinogen 1 H, Ur Leukocyte Esterase Negative, Urine RBC 0 SEEN, Urine WBC 0 SEEN, Ur Squamous Epith Cells 0-5 SEEN, Urine Bacteria 0 SEEN, Urine Mucus 0 SEEN 10/23/21 04:40: WBC 4.5, RBC 3.11 L, Hgb 10.9 L, Hct 33.2 L, MCV 106.8 H, MCH 35.0 H, MCHC 32.8, RDW Std Deviation 60.7 H, RDW Coeff of Pako 15.4 H, Plt Count 100 L, MPV 9.0, Immature Gran % (Auto) 0.700, Neut % (Auto) 60.9, Lymph % (Auto) 25.8, Webb % (Auto) 8.4, Eos % (Auto) 3.3, Baso % (Auto) 0.9, Absolute Neuts (auto) 2.8, Absolute Lymphs (auto) 1.17, Nucleated RBC % 0 10/23/21 04:40: Sodium 138, Potassium 4.8, Chloride 109 H, Carbon Dioxide 26.0, Anion Gap 3 L, BUN 36 H, Creatinine 0.66, Estim Creat Clear Calc 34.91, Est GFR (MDRD) Af Amer 112, Est GFR (MDRD) Non-Af 92, BUN/Creatinine Ratio 54.2 H, Glucose 79, Calcium 8.9 Radiology Impression Chest X-Ray 10/22/21 15:55 IMPRESSION: Emphysema without pneumonia or atelectasis. Electronically Signed: Da Steven MD at 16:12 EDT , Tibia/Fibula X-Ray 10/22/21 16:00 IMPRESSION: Normal x-ray examination of the tibia and fibula. Electronically Signed: Da Steven MD at 16:12 EDT , Knee X-Ray 10/22/21 16:42 IMPRESSION: Moderate osteoarthritic change. No acute fracture or other significant bony pathology Electronically Signed: Yuri Whitlock MD at 17:08 EDT , Lower Extremity CT 10/22/21 16:55 IMPRESSION: Phlegmonous changes within the soft tissues of the posterior knee with tiny air bubbles. Gangrenous changes not entirely excluded. No focal well-defined abscess identified or evidence for acute osteomyelitis Electronically Signed: Yuri Whitlock MD at 17:47 EDT ,
--- NOTE | 2021-10-23 10:54 | PCM.CONS.GEN ---
Assessment & Plan Assessment/Plan (1) Open wound of left lower leg with complication: (2) Cellulitis of leg, left: (3) Abscess of left lower leg: (4) Skin necrosis: (5) Obesity: PLAN: X-rays reviewed. CT reviewed. Medical records reviewed. Patient has a draining infected necrotic abscess wound left popliteal area. Plan on surgery tomorrow for a surgical preparation left popliteal area with incision and drainage and excisional debridement draining infected necrotic abscess wound. Surgery will be done under general anesthesia. Will be conservative with the debridement since we don't how deep it goes. There are popliteal vessels in the area. If there is still necrotic tissue at the base of the wound and we are getting close to the popliteal vessels, then I will stop and start wound care with Dakin's dressing changes. For further excisional debridement of this wound in close proximity to the popliteal vessels, she would need to go to a tertiary center where there is Vascular Surgeons on staff that can provide assistance if the vessels get injured. Tissue that is excised at surgery will be sent to Pathology for analysis to rule out carcinoma and to Microbiology for culture. A positive culture will necessitate antibiotic therapy. Currently she is on Vancomycin IV and Meropenem IV. Anticipate increased metabolic demands from the wound and the infection. Will check a Prealbumin and encourage nutritional supplementation with protein to help the healing process. Patient was informed of the risks and complications of the procedure including alternatives to surgery. These were discussed with the patient personally. Patient voices understanding and wishes to proceed. We discussed the current risks associated with COVID-19. While it is understood that there is a community spread of COVID-19, the risk of lashawn COVID-19 while at [facility] ([facility]) is very low; however, the risk cannot be completely mitigated because of the community spread of the disease. We discussed in detail the risk of exposure to and/or potential harm posed by the COVID-19 virus with having a surgery/procedure at this time versus the risk of delaying the surgery/procedure. It is not possible to know either the risk of delaying the surgery or procedure or chance of getting an infection with perfect accuracy, but a joint decision was made to proceed at this time with the scheduled surgery/procedure as indicated on the consent form. Patient was notified that we will need to comply with any screening or testing [facility] wishes to perform or that surgery may be delayed for any positive results. Procedure Criteria Procedure Type:?Elective COVID Risk Discussion: The surgeon/proceduralist and patient have discussed in detail the risk of exposure to and/or potential harm posed by the COVID-19 virus with having a surgery/procedure at this time versus the risk of delaying the surgery/procedure.? It is not possible to know either the risk of delaying the surgery or procedure or chance of getting an infection with perfect accuracy, but a joint decision was made between the patient and the surgeon/proceduralist to proceed at this time with the scheduled surgery/procedure as indicated on the consent form. HPI Consult Data Date of Consult: 10/25/21 HPI Narrative Reason for Consultation: necrotic wound left popliteal area. HPI Narrative: FRANCE NAM, is a 76 F who presents to the emergency room at [facility] from a local extended care facility at which she is receiving inpatient rehab services due to a nonhealing wound with purulent drainage, evidence of necrosis, and odoriferous drainage from the left popliteal space. Patient had recently been hospitalized at [facility] after sustaining a fall at her home, she was not able to care for herself and went to an extended care facility for inpatient rehab services-she was admitted to [facility] in [facility] on 10/07/2021. She had been receiving oral antibiotics for a left popliteal space deep wound. The wound worsened and she came to the ED. WBC was normal at 4.9. CT of the left popliteal was obtained. It showed phlegmonous changes within the soft tissue of the posterior knee with tiny air bubbles visible, gangrenous changes were not totally excluded. No local well-defined abscess was identified and there was no evidence for osteomyelitis. She was started on Vancomycin IV and Meropenem IV was added. I was asked to evaluate this patient for surgical options for treatment. [facility] Medical History Abscess of left lower leg Bipolar disorder Blisters of multiple sites Blunt trauma of face Breast cancer Cellulitis of leg, left Cholecystectomy planned Chronic pain Cirrhosis Closed head injury Debility GERD (gastroesophageal reflux disease) Gout Hypertension Kidney stones Lupus Migraines Morbidly obese Non-smoker Obesity Open wound of left lower leg with complication Osteoporosis Pulmonary embolism Rheumatoid arthritis Right rib fracture Sinus pressure Skin necrosis Sleep apnea Thrombocytopenia Home Medications cholecalciferol (vitamin D3) [Vitamin D3] 1,000 unit PO DAILY 04/15/17 [History Last Taken 10/05/21] lisinopril 20 mg PO Q3D 04/15/17 [History Last Taken 10/04/21] venlafaxine 75 mg PO DAILY 04/15/17 [History Last Taken Unknown] ascorbic acid (vitamin C) 250 mg PO DAILY 09/03/20 [History Last Taken 10/04/21] ferrous sulfate 325 mg PO Q2D 09/03/20 [History Last Taken 10/04/21] bacitracin 1 applic TOPICAL TID 10/05/21 [History Last Taken 10/04/21] nystatin 1 applic TOPICAL BIDCM PRN 10/05/21 [History Last Taken 10/04/21] acetaminophen [Tylenol] 650 mg PO Q6H PRN PRN #0 tab 10/07/21 [Rx Last Taken Unknown] buspirone 5 mg PO TID 10/22/21 [History Last Taken Unknown] cefadroxil 500 mg PO DAILY 10/22/21 [History Last Taken Unknown] collagenase clostridium histo. [Santyl] 1 applic TOPICAL TID 10/22/21 [History Last Taken Unknown] doxycycline hyclate 100 mg PO BID 10/22/21 [History Last Taken Unknown] tramadol 50 mg PO Q6H PRN 10/22/21 [History Last Taken Unknown] Allergy/AdvReac Type Severity Reaction Status Date / Time erythromycin base Allergy Rash Verified 10/22/21 16:41 Fish Containing Products Allergy Swelling Verified 10/22/21 16:41 iodine Allergy Rash Verified 10/22/21 16:41 Penicillins [PCN] Allergy Rash Verified 10/22/21 16:41 Sulfa (Sulfonamide Allergy Rash Verified 10/22/21 16:41 Antibiotics) Surgical History H/O hernia repair H/O: hysterectomy History of appendectomy History of cholecystectomy History of tonsillectomy Social History Smoking Status: Never smoker ROS ROS Narrative Constitutional: Reports weakness; Denies anorexia, change in weight, fever(s) or night sweats Eyes: Denies blurry vision, change in vision, discharge from eye(s) or eye pain Cardiovascular: Denies chest pain, claudication, edema or palpitations Respiratory/Chest: Denies cough, hemoptysis, productive cough, shortness of breath at rest or shortness of breath with exertion Gastrointestinal: Denies abdominal pain, constipation, diarrhea, dyspepsia, hematemesis, hematochezia, melena, nausea or vomiting Genitourinary: Denies dysuria, hematuria, urinary frequency, urinary hesitancy, urinary incontinence or urinary urgency Musculoskeletal: Denies back pain, joint pain, joint stiffness, joint swelling, myalgias or neck pain Neurologic: Denies abnormal gait, abnormal speech, dizziness, focal weakness, headache(s), loss of vision, numbness, other visual disturbances, paresthesias, syncope or tingling Psychiatric: Denies anxiety, cognitive impairment, depression, irritability, mood swings or suicidal ideation Endocrinology: Denies change in body appearance, cold intolerance, excessive sweating, heat intolerance, polydipsia or polyuria Hematologic/Lymphatic: Denies none, anemia, easy bleeding, easy bruising or lymphadenopathy Allergic/Immunologic: Denies rhinitis, urticaria, eczemia or asthma Physical Exam Narrative Const - alert, oriented x3 and no apparent distress Orientation / Consciousness: awake, oriented to person, oriented to place and oriented to time HEENT - PERRL. EOMI. Throat is clear. Neck - supple, nontender. No cervical adenopathy. Resp - clear to auscultation bilaterally Cardio - regular rate, regular rhythm. GI - soft, non-distended. Obese. Extremity - no clubbing or cyanosis. Has mild swelling left leg. There is a necrotic wound of the left popliteal area with associated purulent drainage and odoriferous drainage. This area is tender to palpation. Measures 8 x 5 cm. Mild redness present. Neuro - CN's II-XII intact bilaterally. Psych - affect normal. Lab / Micro Data Attestation: I reviewed the patient's lab results. Result Diagrams: 10/25/21 05:52 10/25/21 05:50 Labs: Laboratory Results - last 24 hr 10/22/21 15:25: WBC 4.9, RBC 3.26 L, Hgb 11.8 L, Hct 34.6 L, MCV 106.1 H, MCH 36.2 H, MCHC 34.1, RDW Std Deviation 59.2 H, RDW Coeff of Pako 15.2 H, Plt Count 128 L, MPV 9.3, Immature Gran % (Auto) 0.400, Neut % (Auto) 65.8, Lymph % (Auto) 25.7, [place] % (Auto) 6.3, Eos % (Auto) 0.8, Baso % (Auto) 1.0, Absolute Neuts (auto) 3.3, Absolute Lymphs (auto) 1.27, Nucleated RBC % 0 10/22/21 15:25: PT 15.9 H, INR 1.3, APTT 32.9 10/22/21 15:25: Sodium 136, Potassium 5.1, Chloride 106, Carbon Dioxide 27.0, Anion Gap 3 L, BUN 33 H, Creatinine 0.66, Estim Creat Clear Calc 34.91, Est GFR (MDRD) Af Amer 112, Est GFR (MDRD) Non-Af 92, BUN/Creatinine Ratio 49.8 H, Glucose 91, Calcium 9.1, Total Bilirubin 0.80, AST 83 H, ALT 41, Alkaline Phosphatase 118 H, Total Protein 5.7 L, Albumin 1.6 L, Globulin 4.1, Albumin/Globulin Ratio 0.4 L 10/22/21 15:25: Lactic Acid 1.5 10/22/21 16:20: Urine Color Yellow, Urine Clarity Clear, Urine pH 6.0, Ur Specific [place] 1.020, Urine Protein Negative, Urine Glucose (UA) Normal, Urine Ketones 5 H, Urine Occult Blood Negative, Urine Nitrite Negative, Urine Bilirubin Negative, Urine Urobilinogen 1 H, Ur Leukocyte Esterase Negative, Urine RBC 0 SEEN, Urine WBC 0 SEEN, Ur Squamous Epith Cells 0-5 SEEN, Urine Bacteria 0 SEEN, Urine Mucus 0 SEEN 10/23/21 04:40: WBC 4.5, RBC 3.11 L, Hgb 10.9 L, Hct 33.2 L, MCV 106.8 H, MCH 35.0 H, MCHC 32.8, RDW Std Deviation 60.7 H, RDW Coeff of Pako 15.4 H, Plt Count 100 L, MPV 9.0, Immature Gran % (Auto) 0.700, Neut % (Auto) 60.9, Lymph % (Auto) 25.8, [place] % (Auto) 8.4, Eos % (Auto) 3.3, Baso % (Auto) 0.9, Absolute Neuts (auto) 2.8, Absolute Lymphs (auto) 1.17, Nucleated RBC % 0 10/23/21 04:40: Sodium 138, Potassium 4.8, Chloride 109 H, Carbon Dioxide 26.0, Anion Gap 3 L, BUN 36 H, Creatinine 0.66, Estim Creat Clear Calc 34.91, Est GFR (MDRD) Af Amer 112, Est GFR (MDRD) Non-Af 92, BUN/Creatinine Ratio 54.2 H, Glucose 79, Calcium 8.9 Micro: Microbiology 10/22/21 Unknown Wound - Knee Wound Culture - Preliminary Gram negative tello 10/22/21 16:20 Urine, Catheterized Urine Culture - Preliminary Culture exhibits no growth. Radiology Impression Chest X-Ray 10/22/21 15:55 IMPRESSION: Emphysema without pneumonia or atelectasis. Electronically Signed: Da Steven MD at 16:12 EDT , Tibia/Fibula X-Ray 10/22/21 16:00 IMPRESSION: Normal x-ray examination of the tibia and fibula. Electronically Signed: Da Steven MD at 16:12 EDT , Knee X-Ray 10/22/21 16:42 IMPRESSION: Moderate osteoarthritic change. No acute fracture or other significant bony pathology Electronically Signed: Yuri Whitlock MD at 17:08 EDT , Lower Extremity CT 10/22/21 16:55 IMPRESSION: Phlegmonous changes within the soft tissues of the posterior knee with tiny air bubbles. Gangrenous changes not entirely excluded. No focal well-defined abscess identified or evidence for acute osteomyelitis Electronically Signed: Yuri Whitlock MD at 17:47 EDT , Charges/Coding Visit Charges Inpatient E&M: 25802 Init Hosp L2 (Icd-10 - S81.802A, L02.416, L03.116, I96, E66.9)
[2021-10-23] MEDS: 0.9% Normal Saline 1,000 ML 100 ML IV ×2 (11:10→16:00)
--- NOTE | 2021-10-23 11:37 | WOUNDNOTE ---
wound photo: left lower leg
--- NOTE | 2021-10-23 11:38 | WOUNDNOTE ---
wound photo: left lower leg
--- NOTE | 2021-10-23 11:38 | WOUNDNOTE ---
wound photo: left posterior knee
--- NOTE | 2021-10-23 11:39 | WOUNDNOTE ---
wound photo: left posterior knee
--- NOTE | 2021-10-23 11:39 | WOUNDNOTE ---
wound photo: right lateral abdominal fold
--- NOTE | 2021-10-23 12:09 | WOUNDNOTE ---
wound photo: left lateral abdominal fold
--- NOTE | 2021-10-23 12:09 | WOUNDNOTE ---
wound photo: right buttock
[2021-10-23] MEDS: Ascorbic Acid 500 MG Tablet 250 MG PO (12:24)
[2021-10-23] MEDS: Venlafaxine XR 75 MG Capsule PO (12:24)
[2021-10-23] MEDS: Ondansetron 4 MG/2 ML Vial IV ×2 (14:02→21:50)
[2021-10-23] MEDS: busPIRone 5 MG Tablet PO (14:02)
[2021-10-23] MEDS: DAKIN'S SOL HALF STRENGTH (=0.25%) 1 APPLIC TOPICAL (14:24)
[2021-10-23] MEDS: Menthol/Lanolin/Calamine/Znox 113 GM Tube 1 APPLIC TOPICAL (21:50)
[2021-10-24] VITALS (10 sets, daily range): BP systolic 94–115; BP diastolic 44–58; PULSE 74–123; RESP 18; TEMP 36.6–36.8; O2SAT 90–95
[2021-10-24] MEDS: 0.9% Normal Saline 1,000 ML 100 ML IV ×3 (01:50→21:42)
[2021-10-24] MEDS: busPIRone 5 MG Tablet PO (05:14)
[2021-10-24 06:46] LABS: Vancomycin, Trough Level 23.2 ug/mL (5.0-15.0)
--- NOTE | 2021-10-24 06:50 | PCM.RX.CS ---
Consult Pharmacy has been consulted to manage selected antiobiotic: Vancomycin Type of Consult: Follow-up Suspected Infection: Skin/Soft tissue Labs: Sodium 138 mmol/L (136-145) 10/23/21 04:40 Potassium 4.8 mmol/L (3.5-5.1) 10/23/21 04:40 Chloride 109 mmol/L (98-107) H 10/23/21 04:40 Carbon Dioxide 26.0 mmol/L (21.0-32.0) 10/23/21 04:40 Anion Gap 3 (5-15) L 10/23/21 04:40 BUN 36 mg/dL (7-18) H 10/23/21 04:40 Creatinine 0.66 mg/dL (0.55-1.02) 10/23/21 04:40 Est GFR (MDRD) Af Amer 112 mL/min (>60) 10/23/21 04:40 Est GFR (MDRD) Non-Af 92 mL/min (>60) 10/23/21 04:40 BUN/Creatinine Ratio 54.2 RATIO (10-20) H 10/23/21 04:40 Glucose 79 mg/dL (74-106) 10/23/21 04:40 Vancomycin Trough 23.2 ug/mL (5.0-15.0) H 10/24/21 05:30 Microbiology: Microbiology 10/22/21 Unknown Wound - Knee Gram Stain - Final 10/22/21 Unknown Wound - Knee Wound Culture - Preliminary Gram negative tello 10/22/21 16:20 Urine, Catheterized Urine Culture - Preliminary Culture exhibits no growth. Goal Trough: 15-20 mcg/mL Pharmacy Plan for Drug Dosing: Pharmacy Service will continue to monitor and adjust dosing as required. TROUGH 23.2 AT 12 HRS. HOLD CURRENT DOSE AND DRAW RANDOM TROUGH IN 8 HRS Follow-Up Labs: Trough Vancomycin Labs to be done on [date and time ordered]: 10/24 @ 1330 RANDOM
[2021-10-24] MEDS: Ferrous Sulfate 325 MG Tablet PO (09:06)
[2021-10-24] MEDS: Venlafaxine XR 75 MG Capsule PO (09:07)
[2021-10-24] MEDS: Ascorbic Acid 500 MG Tablet 250 MG PO (09:07)
[2021-10-24] MEDS: DAKIN'S SOL HALF STRENGTH (=0.25%) 1 APPLIC TOPICAL (09:08)
[2021-10-24] MEDS: Menthol/Lanolin/Calamine/Znox 113 GM Tube 1 APPLIC TOPICAL ×2 (09:08→21:39)
[2021-10-24 14:11] LABS: Vancomycin, Random Level 20.2 ug/mL (0.0-15.0)
[2021-10-24] MEDS: Heparin Injection (Vial) 5,000 UNIT/ML VIAL 5000 UNIT SC ×2 (16:03→21:39)
[2021-10-24] MEDS: Ondansetron 4 MG/2 ML Vial IV (16:06)
--- NOTE | 2021-10-24 17:43 | PN.HOSP_ITS ---
Subjective Subjective Patient was seen and examined today, she voices no complaints of fevers or chills. Patient remains afebrile Objective Data Objective Data Vital Signs: Vital Signs Temp Pulse Resp BP Pulse Ox 97.9 F 80 18 115/44 L 93 10/24/21 11:30 10/24/21 14:56 10/24/21 11:30 10/24/21 11:30 10/24/21 11:30 Oxygen Delivery Method Room Air Weight: 141.1 kg Body Mass Index (BMI) 60.7 Intake & Output: Intake and Output for Last 24 Hours 10/22/21 10/23/21 10/24/21 23:59 23:59 23:59 Intake Total 640 / 740 5366.67 / 5866.67 3123.33 / 3123.33 Output Total 425 / 525 275 / 275 Balance 640 / 540 4941.67 / 5341.67 2848.33 / 2848.33 Lab / Micro Data Result Diagrams: 10/23/21 04:40 10/23/21 04:40 Labs: Laboratory Results - last 24 hr 10/24/21 05:30: Vancomycin Trough 23.2 H 10/24/21 13:28: Random Vancomycin 20.2 H Micro: Microbiology 10/22/21 15:39 Blood Culture (Wb) - Right Wrist Blood Culture - Preliminary No growth in 48 hours. 10/22/21 15:25 Blood Culture (Wb) - Left Hand Blood Culture - Preliminary No growth in 48 hours. 10/22/21 Unknown Wound - Knee Gram Stain - Final 10/22/21 Unknown Wound - Knee Wound Culture - Preliminary Gram negative tello 10/22/21 16:20 Urine, Catheterized Urine Culture - Final Culture exhibits no growth. Physical Exam Narrative alert, oriented x3 and no apparent distress Constitutional Narrative: Patient appears older than her stated age, she is morb idly obese General Appearance: cooperative, well kempt and well developed Orientation / Consciousness: awake, oriented to person, oriented to place and oriented to time Nutritional Appearance: morbidly obese HEENT normocephalic, head/scalp atraumatic, hearing grossly normal bilaterally and moist oral mucous membranes Eyes PERRL, EOMs intact bilaterally and conjunctivae normal Neck nuchal rigidity, supple, no JVD and thyroid normal General: trachea midline Resp normal respiratory effort, no retractions, no use of accessory muscles and clear to auscultation bilaterally Auscultation: Negative for rales, rhonchi or wheezes Cardio regular rate, regular rhythm, S1 normal heart sound, S2 normal heart sound, no murmurs, no rub and no gallops GI normal to inspection, nondistended, normoactive bowel sounds, soft to palpation, non-tender and non-distended Extremity no clubbing, cyanosis or edema Extremity Narrative: Left popliteal space is covered with bandages, these were not removed for examination of the area Skin Narrative: Patient has a bandage over a wound area in the left popliteal space, this bandage was not removed for examination today General Skin Exam: no breakdown Neuro oriented x3, CN's II-XII intact bilaterally, no focal motor deficits and no sensory deficits noted Sensorium / Orientation: awake and alert Speech: speech normal Psych affect normal Assessment & Plan Assessment/Plan (1) Leg wound, left: PLAN: 1. Left deep popliteal space wound infection-continue present antibiotic coverage, at this time, patient states that she would not undergo a left leg amputation. Patient will need surgery to debride tissue of the left popliteal space. #2 morbid obesity-patient will be seen by nutritional services, complicates care and recovery #3 generalized debility-patient will be seen by PT and OT, she will need to go to an extended care facility at the time of discharge from the hospital here for further rehab services. #4 essential hypertension-patient will remain on lisinopril-for now, the lisinopril will be held due to patient's blood pressure #5 chronic depression-patient is on Effexor #6 mycotic skin infections of intertriginous folds-nystatin powder is being used #7 hypotension-resolved at this time, patient's blood pressure today was 115/44 Charges/Coding Visit Charges Inpatient E&M: 24863 Subs Hosp L2
[2021-10-25] VITALS (11 sets, daily range): BP systolic 109–114; BP diastolic 47–56; PULSE 80–132; RESP 16–20; TEMP 36.7–37; O2SAT 88–96
[2021-10-25] MEDS: Heparin Injection (Vial) 5,000 UNIT/ML VIAL 5000 UNIT SC ×2 (05:55→14:00)
[2021-10-25] MEDS: 0.9% Normal Saline 1,000 ML 100 ML IV ×2 (06:02→19:31)
[2021-10-25] MEDS: 0.9% Saline Lock 10 ML Syringe IV (06:02)
[2021-10-25] MEDS: Ondansetron 4 MG/2 ML Vial IV ×2 (06:02→14:02)
[2021-10-25 06:25] LABS: Vancomycin, Random Level 13.9 ug/mL (0.0-15.0)
[2021-10-25 07:38] LABS: Creatinine, Serum 0.51 mg/dL (0.55-1.02); EST Glomerular Filtration Rate 124 mL/min (>60); Est Glom Filt Rate - Afr Amer 150 mL/min (>60); Estimated Creatinine Clearance 34.91 ml/min
[2021-10-25 08:07] LABS: Absolute Lymphocyte Count 0.97 X10^3/uL (0.83-4.51); Absolute Neutrophil Count 1.3 X10^3/uL (2.0-7.7); Basophil# 0.03 X10^3/uL; Basophil% 1.1 % (0-1); Eosinophil# 0.06 X10^3/uL; Eosinophils% 2.3 % (0-5); Hematocrit 30.4 % (37-47); Hemoglobin 10.1 g/dL (12.0-15.0); Lymphocyte # 0.97 X10^3/ul (0.83-4.51); Lymphocyte % 37.2 % (19-41); Mean Corp Hgb Conc 33.2 g/dL (32-36); Mean Corpuscular Hgb 35.3 pg (27.0-32.0); Mean Corpuscular Volume 106.3 fL (81-99); Mean Platelet Vol. 8.7 fl (6.2-12.0); Monocyte# 0.26 X10^3/uL; NRBC Flagged by Analyzer 0 % (0-5); Neutrophil # 1.27 X10^3/uL (2.7-7.7); Neutrophil % 48.6 % (47-70); POSITIVE COUNT YES; Platelet Count 72 K/mm3 (150-450); RBC Distribution Width CV 15.8 % (11.6-14.6); RBC Distribution Width SD 61.3 fl (35.1-43.9); Red Blood Count 2.86 M/mm3 (4.2-5.4); White Blood Count 2.6 K/mm3 (4.4-11.0)
[2021-10-25] MEDS: Menthol/Lanolin/Calamine/Znox 113 GM Tube 1 APPLIC TOPICAL ×2 (09:38→21:39)
[2021-10-25] MEDS: Venlafaxine XR 75 MG Capsule PO (09:40)
[2021-10-25] MEDS: Ascorbic Acid 500 MG Tablet 250 MG PO (09:40)
[2021-10-25] MEDS: Lisinopril 20 MG Tablet PO (09:40)
--- NOTE | 2021-10-25 10:05 | PCM.RX.CS ---
Consult Pharmacy has been consulted to manage selected antiobiotic: Vancomycin Type of Consult: Follow-up Suspected Infection: Skin/Soft tissue Prior Doses of Antibiotics Received/Current Regimen: the patient had been on vanc 1500mg IV q12h until that was held due to high trough/random levels Labs: Sodium 138 mmol/L (136-145) 10/23/21 04:40 Potassium 4.8 mmol/L (3.5-5.1) 10/23/21 04:40 Chloride 109 mmol/L (98-107) H 10/23/21 04:40 Carbon Dioxide 26.0 mmol/L (21.0-32.0) 10/23/21 04:40 Anion Gap 3 (5-15) L 10/23/21 04:40 BUN 36 mg/dL (7-18) H 10/23/21 04:40 Creatinine 0.51 mg/dL (0.55-1.02) L 10/25/21 05:50 Est GFR (MDRD) Af Amer 150 mL/min (>60) 10/25/21 05:50 Est GFR (MDRD) Non-Af 124 mL/min (>60) 10/25/21 05:50 BUN/Creatinine Ratio 54.2 RATIO (10-20) H 10/23/21 04:40 Glucose 79 mg/dL (74-106) 10/23/21 04:40 Vancomycin Trough 23.2 ug/mL (5.0-15.0) H 10/24/21 05:30 Random Vancomycin 13.9 ug/mL (0.0-15.0) 10/25/21 05:52 Microbiology: Microbiology 10/22/21 Unknown Wound - Knee Gram Stain - Final 10/22/21 Unknown Wound - Knee Wound Culture - Preliminary Morganella morganii sp morgani Gram positive tello Staphylococcus species Gram positive tello#2 10/22/21 15:39 Blood Culture (Wb) - Right Wrist Blood Culture - Preliminary No growth in 48 hours. 10/22/21 15:25 Blood Culture (Wb) - Left Hand Blood Culture - Preliminary No growth in 48 hours. 10/22/21 16:20 Urine, Catheterized Urine Culture - Final Culture exhibits no growth. Weight used for dosin kg Estimated Creatinine Clearance: 80ml/min Goal Trough: 15-20 mcg/mL Pharmacy Plan for Drug Dosing: The vanc random level drawn at 05:52 today (approx 36 hours after the last 1500mg dose) was 13.9. This is back below 20 so dosing can be resumed. Will widen the frequency it is being given due to those past high levels and restart at 1500mg IV q24h. Repeat a trough level before the 3rd dose. The patient's CrCl of 80ml/min was calculated using an adjusted body weight of 83.7kg and a SCr of 0.8 per protocol. Pharmacy Service will continue to monitor and adjust dosing as required. Follow-Up Labs: Trough Vancomycin Labs to be done on [date and time ordered]: 10/27/21 08:30
[2021-10-25] MEDS: DAKIN'S SOL HALF STRENGTH (=0.25%) 1 APPLIC TOPICAL (14:00)
[2021-10-25] MEDS: Nystatin Powder 15gm Bottle 1 APPLIC TOPICAL (15:11)
[2021-10-26] VITALS (29 sets, daily range): BP systolic 68–112; BP diastolic 30–73; PULSE 62–128; RESP 14–31; TEMP 35.8–36.8; O2SAT 91–99; BMI 60.7
--- NOTE | 2021-10-26 01:15 | RAD_ITS ---
STUDY: X-RAY CHEST REASON FOR EXAM: Female, 76 years old patient with recent surgery. TECHNIQUE: Single AP portable view of the chest. COMPARISON: 10/22/2021. FINDINGS: Cardiac monitoring leads are present. The lungs are underexpanded with crowding of the bronchovascular markings. There is obscuration of lung bases. There is interstitial thickening in both lungs. There appear to be patchy areas of groundglass attenuation of both lungs that could represent multifocal pneumonia. There are also patchy areas of increased lucency that suggests emphysema. There appear to be small pleural effusions. Normal size heart. Normal mediastinum and josefina. Normal visualized pulmonary arteries. Normal visualized aortic arch and descending thoracic aorta. There is demineralization of the osseous structures. Normal visualized ribs, clavicles, and shoulders. Surgical clips are visible in right axilla suggesting axillary node dissection. There is no demonstrated abnormality of the visualized soft tissue structures of the upper abdomen. RAD/Chest 1 View (Portable) IMPRESSION: The findings suggest possible multifocal pneumonia. Electronically Signed: Jayne Barrear MD at 6:14 EDT ,
[2021-10-26] MEDS: 0.9% Normal Saline 1,000 ML 100 ML IV ×2 (01:39→11:19)
--- NOTE | 2021-10-26 05:00 | EKG12_ITS ---
Test Reason : PRE OP Blood Pressure : / mmHG Vent. Rate : 074 BPM Atrial Rate : 074 BPM P-R Int : 204 ms QRS Dur : 072 ms QT Int : 370 ms P-R-T Axes : 009 -05 044 degrees QTc Int : 410 ms Normal sinus rhythm Low voltage QRS Borderline ECG When compared with ECG of 22-OCT-2021 15:36, MANUAL COMPARISON REQUIRED, DATA IS UNCONFIRMED Confirmed by TUNDE DAI, JACKY ([id number]), electronic news gathering editor ILENE BRODY ([id number]) on 10/27/2021 11:21:05 AM Referred By: KENDALL Confirmed By:JACKY GRIFFITHS MD
[2021-10-26 05:06] LABS: Absolute Lymphocyte Count 1.21 X10^3/uL (0.83-4.51); Absolute Neutrophil Count 1.1 X10^3/uL (2.0-7.7); Basophil# 0.04 X10^3/uL; Basophil% 1.4 % (0-1); Eosinophil# 0.15 X10^3/uL; Eosinophils% 5.3 % (0-5); Hematocrit 29.8 % (37-47); Hemoglobin 9.4 g/dL (12.0-15.0); Lymphocyte # 1.21 X10^3/ul (0.83-4.51); Lymphocyte % 42.6 % (19-41); Mean Corp Hgb Conc 31.5 g/dL (32-36); Mean Corpuscular Hgb 33.9 pg (27.0-32.0); Mean Corpuscular Volume 107.6 fL (81-99); Mean Platelet Vol. 9.1 fl (6.2-12.0); Monocyte# 0.31 X10^3/uL; Monocyte% 10.9 % (0-10); NRBC Flagged by Analyzer 0 % (0-5); Neutrophil # 1.09 X10^3/uL (2.7-7.7); Neutrophil % 38.4 % (47-70); POSITIVE COUNT YES; Platelet Count 66 K/mm3 (150-450); RBC Distribution Width CV 15.9 % (11.6-14.6); RBC Distribution Width SD 62.7 fl (35.1-43.9); Red Blood Count 2.77 M/mm3 (4.2-5.4); White Blood Count 2.8 K/mm3 (4.4-11.0)
[2021-10-26 05:08] LABS: Differential Indicated SCAN CRITERIA MET
[2021-10-26 05:20] LABS: Anion Gap 3 (5-15); BUN 26 mg/dL (7-18); BUN/Creat Ratio 70.5 RATIO (10-20); Calcium,Total 8.6 mg/dL (8.5-10.1); Chloride 115 mmol/L (98-107); Creatinine, Serum 0.37 mg/dL (0.55-1.02); EST Glomerular Filtration Rate 182 mL/min (>60); Est Glom Filt Rate - Afr Amer 220 mL/min (>60); Estimated Creatinine Clearance 34.91 ml/min; Glucose 88 mg/dL (74-106); Potassium 4.5 mmol/L (3.5-5.1); Sodium Level 140 mmol/L (136-145)
[2021-10-26 06:21] LABS: Differential Comment SCANNED
--- NOTE | 2021-10-26 11:47 | CASEMGMT ---
Addendum entered by Emerald Green 10/26/21 11:56: BERNARDINO LEBRON will provided a list of SNF providers including quality and resource use data and consistent with the patient?s preferred geographic region, medical needs, and insurance network. SW let patient know SW did place her on the TCU list. SW asked that they pick a couple other options in case a bed does not open up in TCU. Emerald DELUCA Original Note: BERNARDINO spoke with patient and her daughter. BERNARDINO introduced self and role at [facility]. Patient and her daughter do not want patient to go back to [facility]. They both would like [facility] TCU. SW told them SW can put her on a list, but right now TCU is full. BERNARDINO asked if they have another choice and they do not. SW will provided a list of SNF providers including quality and resource use data and consistent with the patient?s preferred geographic region, medical needs, and insurance network. BERNARDINO called [facility] and placed patient on the TCU list. Emerald DELUCA
--- NOTE | 2021-10-26 13:00 | TISS_PTH ---
PATIENT: [place] NAM LOC: [facility] U#:[id number] AGE/SX: 76/F ROOM: [facility] RE10/22/[address]: Dr. Cooper Curry MD : [id number] BED: 1 DIS: 11/01/2021 SPEC #: [id number] RECD: 10/26/21 15:47 STATUS: MAHENDRA GAMBOA #: [id number] SUMEET: 10/26/21 13:[address]: Esvin Agee DEPT: SURGICAL PATHOLOGY RECD BY: Keron Tubbs ENTERED: 10/27/21 08:04 SP TYPE: Tissue Bx OTHR DR: MD Dr. Shahid Worrell, DO MD Dr. Colleen Grimaldo, DO Dr. Honorio Bruner, DO MD Svetlana Vick, REAL ESTATE UNDERWRITER-C Radha Sebastian REAL ESTATE UNDERWRITER-C Tissues: TISSUE SURGICALLY REMOVED Procedures: Surgery Specimen Level III Comments: @ Ordering doctor for SUIV edited from to @ by RACHELLE at 10/27/21 154 @ Submitting doctor edited from to @ by EDSONOD at 10/27/21 1540 HEADER OPERATION: Incision, drainage abscess, posterior leg/knee PRE-OP DIAGNOSIS: Open wound of left lower leg, cellulitis, abscess, skin necrosis TISSUE SUBMITTED: Abscess tissue left posterior knee MICROSCOPIC DIAGNOSIS Left posterior knee tissue: Pieces of skin with underlying tissue with focal ulceration, acute and chronic inflammation and granulation tissue reaction. RICKY:katelyn 10/28/2021 MICROSCOPIC DESCRIPTION Slides are reviewed. GROSS DESCRIPTION Received in fixative is one container labeled with the patient's name and designated abscess tissue left posterior knee. The specimen consists of multiple pieces of skin with underlying tissue and detached pieces of adipose tissue measuring in aggregate 15 x 13 x 3 cm. The skin surface shows focal area of ulceration. No mass lesion is identified. Box Order Person sections are submitted in three cassettes. / RICKY:katelyn 10/27/2021 TC:2 CPT: 88731
--- NOTE | 2021-10-26 14:04 | WOUNDNOTE ---
Pt is currently off the unit for surgery. will follow up with patient tomorrow.
--- NOTE | 2021-10-26 15:16 | PCM.PN.HOSP ---
Subjective Subjective Patient states she is doing okay. Indicates that she was informed she will have surgery today at noon. Is reluctantly agreeable to plan. She is aware that she will likely need placed at discharge prior to going home. Objective Data Objective Data Vital Signs: Vital Signs Temp Pulse Resp BP Pulse Ox 97.7 F L 69 18 109/50 L 93 10/26/21 09:34 10/26/21 09:34 10/26/21 09:34 10/26/21 09:34 10/26/21 09:34 Oxygen Flow Rate (L/min) 2 Oxygen Delivery Method Room Air Weight: 141.2 kg Body Mass Index (BMI) 60.7 Intake & Output: Intake and Output for Last 24 Hours 10/24/21 10/25/21 10/26/21 23:59 23:59 23:59 Intake Total 4228.33 / 4228.33 3883.33 / 3883.33 2225.00 / 2225.00 Output Total 525 / 525 775 / 775 450 / 450 Balance 3703.33 / 3703.33 3108.33 / 3108.33 1775.00 / 1775.00 Lab / Micro Data Result Diagrams: 10/26/21 04:54 10/26/21 04:54 Labs: Laboratory Results - last 24 hr 10/26/21 04:54: WBC 2.8 L, RBC 2.77 L, Hgb 9.4 L, Hct 29.8 L, MCV 107.6 H, MCH 33.9 H, MCHC 31.5 L D, RDW Std Deviation 62.7 H, RDW Coeff of Pako 15.9 H, Plt Count 66 L, MPV 9.1, Immature Gran % (Auto) 1.400 H, Neut % (Auto) 38.4 L, Lymph % (Auto) 42.6 H, [place] % (Auto) 10.9 H, Eos % (Auto) 5.3 H, Baso % (Auto) 1.4 H, Absolute Neuts (auto) 1.1 L, Absolute Lymphs (auto) 1.21, Nucleated RBC % 0, Differential Comment SCANNED 10/26/21 04:54: Sodium 140, Potassium 4.5, Chloride 115 H, Carbon Dioxide 22.0, Anion Gap 3 L, BUN 26 H, Creatinine 0.37 L, Estim Creat Clear Calc 34.91, Est GFR (MDRD) Af Amer 220, Est GFR (MDRD) Non-Af 182, BUN/Creatinine Ratio 70.5 H, Glucose 88, Calcium 8.6 10/26/21 04:54: Blood Type A POSITIVE, Antibody Screen NEGATIVE Micro: Microbiology 10/22/21 Unknown Wound - Knee Gram Stain - Final 10/22/21 Unknown Wound - Knee Wound Culture - Final Morganella morganii sp morgani Corynebacterium striatum Vancomycin Resist. E. faecium Corynebacterium amycolatum 10/22/21 Unknown Wound - Knee Anaerobic Culture - Preliminary Checking for anaerobes, further studies to follow. 10/22/21 15:39 Blood Culture (Wb) - Right Wrist Blood Culture - Preliminary No growth in 48 hours. 10/22/21 15:25 Blood Culture (Wb) - Left Hand Blood Culture - Preliminary No growth in 48 hours. 10/22/21 16:20 Urine, Catheterized Urine Culture - Final Culture exhibits no growth. Radiography Diagnostic Testing: Radiology Impression Chest X-Ray 10/26/21 01:15 IMPRESSION: The findings suggest possible multifocal pneumonia. Electronically Signed: Jayne Barrera MD at 6:14 EDT Reading Location ID and State: [address] [place] [address] , Service support , Physical Exam Const alert, oriented x3, no apparent distress and well nourished Constitutional Narrative: Morbidly obese, older, white female lying in bed, watching television, appears comfortable nontoxic Exam Limitations: no limitations Nutritional Appearance: morbidly obese HEENT head/scalp atraumatic, moist oral mucous membranes and oropharynx normal HEENT Narrative: Edentulous, Mallampati is 2-3, no thrush Head and Scalp: normocephalic Resp normal respiratory effort, no retractions, no use of accessory muscles and clear to auscultation bilaterally Resp Narrative: Distant secondary to body habitus Auscultation: Negative for crackles, rales, rhonchi or wheezes Cardio regular rate, regular rhythm, S1 normal heart sound, S2 normal heart sound, no rub, no gallops, no clicks and no JVD; Negative for no murmurs Cardio Narrative: 4 out of 6 systolic murmur-loudest at left upper sternal border GI normal to inspection, nondistended, normoactive bowel sounds, soft to palpation, non-tender and non-distended Extremity no clubbing, cyanosis or edema Peripheral Pulses: Yes pulses 2+ throughout Skin Skin Narrative: Lower extremity wound is wrapped in bandages clean and dry Neuro oriented x3, CN's II-XII intact bilaterally, moves all extremities and no focal motor deficits Neuro Narrative: Marked generalized weakness but no specific focal deficit Sensorium / Orientation: awake and alert Speech: speech normal Psych Psych Narrative: Affect is flat and mood seems depressed Mood & Affect: depressed Assessment & Plan Assessment/Plan (1) Abscess of left lower leg: (2) Pancytopenia: PLAN: Deep popliteal space wound infection -OR today with plastic surgery -Continue antibiotics as ordered with oral ciprofloxacin and linezolid -Culture showed polymicrobial infection with 2 corynebacterium species/bank resistant unification/Morganella -ID is following and driving antibiotic therapy--> await recommendations for length of treatment -We will need placement for wound care and therapy services at discharge -Case management has initiated this process Pancytopenia -Anemia and thrombocytopenia are baseline however leukopenia is new -Suspect antibiotics may be related to leukopenia versus dilution from IV fluids -Discontinue IV fluids -Repeat lab in a.m. -Anemia and thrombocytopenia is related to known cirrhosis -Continue home iron supplementation Hypotension -Resolved -Continue to hold home lisinopril patient until stable postoperatively Intertriginous candidiasis -Continue nystatin Hypertension -Patient was hypotensive and blood pressures are borderline at this time -Continue to hold home antihypertensives Morbid obesity -Recommend weight loss -Complicates treatment, prognosis, outcomes Depression/anxiety -Continue home Effexor -Continue home BuSpar DVT prophylaxis -Continue subcu heparin 3 times daily CODE STATUS -Full code however this has not been verified and she was most recently DNR CCA -We will need to discuss with her further Charges/Coding Visit Charges Inpatient E&M: 04202 Subs Hosp L2
--- NOTE | 2021-10-26 16:10 | ECHOL_ITS ---
Reason For Study: murmur Procedure This was a limited 2D transthoracic echocardiogram. The study was technically difficult. The study was technically limited. Due to surgery and discomfort PT was supine for exam. VERY LIMITED imaging performed due to suboptimal or no imaging windows. Exam performed portable in ICU/CCU. Left Ventricle The estimated ejection fraction is 55 %. Unable to assess diastolic dysfunction. No regional wall motion abnormalities noted. Right Ventricle Normal RV size. Normal systolic function. Atria Normal left atrium. Normal right atrium. No doppler evidence for ASD. Mitral Valve There is no mitral valve stenosis. Unable to comment on MR. Tricuspid Valve There is no tricuspid stenosis. Unable to estimate RV systolic pressure due to inadequate jet, pulmonary artery pressure probably normal. Aortic Valve The aortic valve is not well visualized. Pulmonic Valve The pulmonic valve is not well visualized. Great Vessels Aortic root not well visualized. Pericardium/Pleural No pericardial effusion. MMode/2D Measurements & Calculations LVIDd: 4.0 cm IVSd: 0.95 cm LVIDs: 2.5 cm LVPWd: 0.94 cm FS: 38.3 % Doppler Measurements & Calculations MV E max choco: 67.0 cm/sec TR max choco: 263.1 cm/sec MV A max choco: 104.0 cm/sec TR max P.7 mmHg MV E/A: 0.64 ECHO/Echo, Limited Study Interpretation Summary Limited study. The estimated ejection fraction is 55 %. Unable to assess diastolic dysfunction. Ordering Physician: Colleen Boone Referring Physician: Radha Sebastian Performed By: Ivette Obrien, RDCS, RVT
--- NOTE | 2021-10-26 16:16 | PCM.HOSP.N ---
Hospitalist Note Called by anesthesiology postoperatively. Patient had some issues with hypotensive in the postoperative period and right mary anne this way with maps in the upper 50s to low 60s. Upon review of her pressures she does appear chronically borderline with systolics in the low 100s to 1 teens and diastolics in the 50s. She has had several fluid boluses and phenylephrine and has not had significant response to this. She is now requiring 4 L nasal cannula to maintain oxygen saturations however anesthesiology reports she is alert and oriented. We will check a stat CBC and a chest x-ray as patient is now on 4 L as noted above. Will transfuse for hemoglobin less than 7. Start Levophed at 5 mics per hour maintain MAP greater than 65. Will transfer to the ICU in the immediate postoperative period giving above issues. We will also add CPAP at at bedtime as I suspect patient has sleep apnea. Okay to advance diet as long as she is alert and oriented.
--- NOTE | 2021-10-26 16:26 | NURSING ---
This RN called and gave report to Isela WILLOUGHBY in ICU.
--- NOTE | 2021-10-26 16:49 | EKG12_ITS ---
Test Reason : TACHY Blood Pressure : / mmHG Vent. Rate : 128 BPM Atrial Rate : 128 BPM P-R Int : 192 ms QRS Dur : 074 ms QT Int : 282 ms P-R-T Axes : 000 -55 070 degrees QTc Int : 411 ms Possible Ectopic atrial rhythm Left axis deviation Low voltage QRS Inferior infarct , age undetermined Abnormal ECG When compared with ECG of 26-OCT-2021 17:07, MANUAL COMPARISON REQUIRED, DATA IS UNCONFIRMED Confirmed by CASS DAI, HUNTER ([id number]), legal editor ILENE BRODY ([id number]) on 11/13/2021 1:38:03 PM Referred By: KOFI Confirmed By:ERIC ODELL MD
--- NOTE | 2021-10-26 17:01 | PCM.OPRPT ---
Problems Associated Problem List Diagnoses (1) Open wound of left lower leg with complication: (2) Abscess of left lower leg: (3) Cellulitis of leg, left: (4) Skin necrosis: (5) Obesity: Report of Operation Date of Procedure: 10/26/21 Pre-Operative Diagnosis: 1. Infected necrotic wound in left popliteal area with extension proximally into the distal thigh and distally into the proximal leg. 2. Abscess in infected necrotic wound left popliteal area with extension proximally into the distal thigh and distally into the proximal leg. 3. Cellulitis left popliteal area surrounding infected necrotic wound with extension proximally into the distal thigh and distally into the proximal leg. 4. Skin necrosis infected wound in left popliteal area with extension proximally into the distal thigh and distally into the proximally leg. 5. Obesity. Post-Operative Diagnosis: Same. Surgery/Procedure Performed:: Surgical preparation left popliteal area with extension proximally into the distal thigh and distally into the proximal leg with incision and drainage and excisional debridement infected necrotic wound (247 cm2, 156 cm2 for the distal thigh and popliteal area, and 91 cm2 for the proximal leg). Surgeon: Esvin Agee correctional supervisor: Karol Cristobal Type of Anesthesia: General Specimen's removed: Infected necrotic wound abscess popliteal area with extension proximally into the distal thigh and extension distally into the proximal leg to Pathology and Microbiology. Drains: None. Estimated Blood Loss (mL): 250. Description of Procedure: Patient was taken to OR in supine position and was placed under general anesthesia. She was then placed in the lateral position thus giving us better exposure of the infected necrotic wound. The left lower extremitiy was prepped and draped in the usual fashion. SCD was placed around the right leg for DVT prophylaxis. Perioperative antibiotics were given intravenously. Using xylocaine with epinephrine, the infected necrotic wound was infiltrated for postoperative pain relief. Because of her obesity and her leg being generally flexed at the knee, it is a very difficult wound to care for. I made the decision to open up the popliteal wound by also excising the skin and subcutaneous tissue around ulcerations on the distal thigh and proximal leg. The ulcerations are the result of skin rubbing on skin. I then proceeded with surgical preparation of the posterior aspect left lower extremity in the popliteal area with extension proximally into the distal thigh and distally into the proximal leg. A lot of bleeding was seen during the incision and drainage and excisional debridement of this infected necrotic wound. A lot of fat necrosis was present that was excised and debrided. Small amount of pus was noted. Special care was used when the debridement progressed into the deeper aspect of the wound. In the popliteal space are the popliteal vessels. When I got close to the popliteal space, I turned the debridement horizontally both proximally and distally. At the end of the incision and drainage and excisional debridement, the wound was clean. No further evidence of fat necrosis or infected necrotic tissue was present. Hemostasis was obtained with electrocautery. The wound was irrigated with saline. The dimensions of the wound after the procedure was 19 x 13 x 4 cm or 247 cm2, 156 cm2 involving the distal thigh and popliteal area, and 91 cm2 involving the proximal leg). The wound was dressed with Mepitel nonadherent dressing followed by Kerlix gauze and Betadine followed by dry Kerlix gauze and ABD pads and another Kerlix gauze wrapped around the leg. This was followed by a compression geovanna wrap. Tissue that was removed was sent to Pathology for analysis to rule out carcinoma and to Microbiology for culture. A positive culture will necessitate antibiotic therapy. Patient tolerated the procedure well and was sent to PACU in satisfactory condition. Patient will be sent upstairs for continued postop care. Will proceed with a dressing change tomorrow with Dakin's dressing changes daily. Will continue IV antibiotics with Vancomycin and Meropenem preoperatively and Linezolid and Cipro postoperatively. Grafts/Implants Used: None. Complications None. Admit VTE Documentation VTE Present on Admission: No VTE Mechan Device Prophylaxis: SCD's VTE Pharm Prophylaxis ordered?: Yes Addendum Addendum: Surgery Charges CPT - 92165 ICD-10 - S81.802A, L02.416, L03.116, I96, E66.9 41843 S81.802A, L02.416, L03.116, I96, E66.9 57730 S81.802A, L02.416, L03.116, I96, E66.9 50658 L02.416, L03.116, I96. S81.802A, E66.9
--- NOTE | 2021-10-26 17:07 | EKG12_ITS ---
Test Reason : TACHYCARDIA Blood Pressure : / mmHG Vent. Rate : 124 BPM Atrial Rate : 124 BPM P-R Int : 208 ms QRS Dur : 088 ms QT Int : 440 ms P-R-T Axes : -86 -59 121 degrees QTc Int : 632 ms Unusual P axis, possible ectopic atrial tachycardia with Fusion complexes Left axis deviation Low voltage QRS Inferior infarct , age undetermined Anterolateral infarct , age undetermined Abnormal ECG When compared with ECG of 26-OCT-2021 04:55, Significant changes have occurred Confirmed by CASS DAI, HUNTER ([id number]), science editor ILENE BRODY ([id number]) on 11/13/2021 1:40:23 PM Referred By: KOFI Confirmed By:ERIC ODELL MD
--- NOTE | 2021-10-26 17:20 | EX.PCM.CONCC ---
Assessment & Plan Assessment/Plan (1) Severe sepsis: (2) Pancytopenia: (3) Obesity: (4) Abscess of left lower leg: PLAN: RECOMMENDATIONS: 1. Obtain lab work as ordered 2. Initiate pressors if necessary. Consider boluses for hypotension 3. Antibiotics per infectious disease. Okay p.o. given high bioavailability 4. Potential need for pressors 5. Hold baseline antihypertensives 6. Possible AVAPS overnight if hypoxic IMPRESSIONS: 1. Severe sepsis secondary to deep popliteal wound infection status post debridement postop day #0 Clinical suspicion for bacteremia following debridement of popliteal wound infection. Patient with polymicrobial infection including VRE. Patient has been placed on p.o. antibiotics, but is safe to swallow and these medications have high bioavailability. Patient did receive 1.7 L, but given weight, patient should have significant more fluid resuscitation. Cannot exclude the need for pressors moving forward, but appears to be doing well at this time. Lactate will be ordered. If patient requires pressors, anticipate PICC line versus central line. Will attempt to avoid central line as infectious disease is not planning for IV antibiotics at this time 2. Pancytopenia Clinical suspicion secondary to reported cirrhosis. Patient does not have any indication for transfusion at this time. Patient is on baseline iron supplementation, so I do anticipate dark stools. 3. Morbid obesity/hypertension/intertriginous candidiasis/bipolar disorder/anxiety/reported sleep apnea Complicates care, management, recovery and prognosis. Patient states she does not wear BiPAP at baseline, but does have high risk factor for obstructive sleep apnea. Cannot exclude the need for BiPAP overnight. AVAPS would be a safe option if necessary. Hold antihypertensives. Okay to use topical nystatin. Will switch BuSpar to as needed as this could exacerbate problem #1. HPI Consult Data Date of Consult: 10/26/21 HPI Narrative HPI Narrative: FRANCE NAM is a 76 F, with past medical history listed below, who presented to [facility] on 10/22/2021 secondary to a left lower extremity wound. Patient reportedly had lives in a trailer by herself and it fell a couple weeks ago. Patient was staying in a custodial facility just prior to her ER visit. Patient reportedly had necrotic tissue in her left lower extremity and was unable to ambulate despite antibiotic therapy. Patient had denied any fevers, chills, nausea or vomiting at that time. In the ER, patient was afebrile, hypertensive at 175/35 and saturating well on room air. Laboratory work-up showed a white blood cell count of 4.9, hemoglobin of 11.8 and relatively normal chemistries. Patient did have a slightly elevated alkaline phosphatase, but lactate was 1.5. UA was unremarkable. Chest x-ray showed hyperinflation without acute infiltrates and lower extremity x-ray was read as normal. Patient was initiated on antibiotics and admitted to the hospital for wound care observation. Over the course of the hospitalization, it was determined the patient would need a debridement and went to the OR today. In the postoperative phase, patient had significant hypotension and did receive multiple fluid boluses. Per the OR nurse, patient received a total of 1.7 L in addition to multiple doses of phenylephrine. Given continued hypotension, patient was brought to the intensive care unit for further evaluation and possible pressor therapy. Currently, patient states her pain is 9 out of 10 in the left lower extremity. Patient is not reporting any significant shortness of breath, but is requiring 3 L nasal cannula to maintain saturations. Patient does not have any nausea or vomiting at this time. Patient overall feels subjectively worse than she did prior to surgery, but most of it is related to lower extremity pain. Patient reports she has multiple allergies. Patient reportedly has never been a smoker and denies any drinking. Patient reportedly has a history of pulmonary embolism, but she is unaware of this diagnosis. Patient also carries a diagnosis of obstructive sleep apnea, but states she does not wear any machines. Patient does state that she is never required supplemental oxygen previously. Review of systems otherwise negative from a constitutional, HEENT, respiratory, cardiovascular, GI, genitourinary, musculoskeletal, skin, neurologic, psychiatric and hematologic system unless stated above. [facility] Medical History Abscess of left lower leg Bipolar disorder Blisters of multiple sites Blunt trauma of face Breast cancer Cellulitis of leg, left Cholecystectomy planned Chronic pain Cirrhosis Closed head injury Debility GERD (gastroesophageal reflux disease) Gout Hypertension Kidney stones Lupus Migraines Morbidly obese Non-smoker Obesity Open wound of left lower leg with complication Osteoporosis Pulmonary embolism Rheumatoid arthritis Right rib fracture Sinus pressure Skin necrosis Sleep apnea Thrombocytopenia Home Medications cholecalciferol (vitamin D3) [Vitamin D3] 1,000 unit PO DAILY 04/15/17 [History Last Taken 10/05/21] lisinopril 20 mg PO Q3D 04/15/17 [History Last Taken 10/04/21] venlafaxine 75 mg PO DAILY 04/15/17 [History Last Taken Unknown] ascorbic acid (vitamin C) 250 mg PO DAILY 09/03/20 [History Last Taken 10/04/21] ferrous sulfate 325 mg PO Q2D 09/03/20 [History Last Taken 10/04/21] bacitracin 1 applic TOPICAL TID 10/05/21 [History Last Taken 10/04/21] nystatin 1 applic TOPICAL BIDCM PRN 10/05/21 [History Last Taken 10/04/21] acetaminophen [Tylenol] 650 mg PO Q6H PRN PRN #0 tab 10/07/21 [Rx Last Taken Unknown] buspirone 5 mg PO TID 10/22/21 [History Last Taken Unknown] cefadroxil 500 mg PO DAILY 10/22/21 [History Last Taken Unknown] collagenase clostridium histo. [Santyl] 1 applic TOPICAL TID 10/22/21 [History Last Taken Unknown] doxycycline hyclate 100 mg PO BID 10/22/21 [History Last Taken Unknown] tramadol 50 mg PO Q6H PRN 10/22/21 [History Last Taken Unknown] Allergy/AdvReac Type Severity Reaction Status Date / Time erythromycin base Allergy Rash Verified 10/22/21 16:41 Fish Containing Products Allergy Swelling Verified 10/22/21 16:41 iodine Allergy Rash Verified 10/22/21 16:41 Penicillins [PCN] Allergy Rash Verified 10/22/21 16:41 Sulfa (Sulfonamide Allergy Rash Verified 10/22/21 16:41 Antibiotics) Surgical History H/O hernia repair H/O: hysterectomy History of appendectomy History of cholecystectomy History of tonsillectomy Social History Smoking Status: Never smoker ROS ROS Narrative See HPI Physical Exam Const alert, oriented x3, no apparent distress and well nourished Constitutional Narrative: Appears older than stated age. Exam Limitations: no limitations Nutritional Appearance: morbidly obese HEENT head/scalp atraumatic, moist oral mucous membranes and oropharynx normal HEENT Narrative: Edentulous, Mallampati is 2-3, no thrush Head and Scalp: normocephalic Resp normal respiratory effort, no retractions, no use of accessory muscles and clear to auscultation bilaterally Resp Narrative: Distant secondary to body habitus Auscultation: Negative for rales, rhonchi or wheezes Cardio regular rhythm, S1 normal heart sound, S2 normal heart sound, no rub, no gallops, no clicks and no JVD; Negative for no murmurs Cardio Narrative: 4 out of 6 systolic murmur-loudest at left upper sternal border. EKG shows sinus tachycardia. Rate: tachycardic GI normal to inspection, nondistended, normoactive bowel sounds, soft to palpation, non-tender and non-distended Extremity Extremity Narrative: Left lower extremity is wrapped in an Tommie bandage. General Extremity: edema bilateral (4+ bilateral feet) lower extremity; Negative for clubbing or cyanosis Peripheral Pulses: Yes pulses 2+ throughout Skin Skin Narrative: Lower extremity wound is wrapped in bandages clean and dry Neuro oriented x3, CN's II-XII intact bilaterally, moves all extremities and no focal motor deficits Neuro Narrative: Marked generalized weakness but no specific focal deficit Sensorium / Orientation: awake and alert Speech: speech normal Psych Psych Narrative: Affect is flat and mood seems depressed Mood & Affect: depressed Lab / Micro Data Result Diagrams: 10/26/21 04:54 10/26/21 04:54 Labs: Laboratory Results - last 24 hr 10/26/21 04:54: WBC 2.8 L, RBC 2.77 L, Hgb 9.4 L, Hct 29.8 L, MCV 107.6 H, MCH 33.9 H, MCHC 31.5 L D, RDW Std Deviation 62.7 H, RDW Coeff of Pako 15.9 H, Plt Count 66 L, MPV 9.1, Immature Gran % (Auto) 1.400 H, Neut % (Auto) 38.4 L, Lymph % (Auto) 42.6 H, [place] % (Auto) 10.9 H, Eos % (Auto) 5.3 H, Baso % (Auto) 1.4 H, Absolute Neuts (auto) 1.1 L, Absolute Lymphs (auto) 1.21, Nucleated RBC % 0, Differential Comment SCANNED 10/26/21 04:54: Sodium 140, Potassium 4.5, Chloride 115 H, Carbon Dioxide 22.0, Anion Gap 3 L, BUN 26 H, Creatinine 0.37 L, Estim Creat Clear Calc 34.91, Est GFR (MDRD) Af Amer 220, Est GFR (MDRD) Non-Af 182, BUN/Creatinine Ratio 70.5 H, Glucose 88, Calcium 8.6 10/26/21 04:54: Blood Type A POSITIVE, Antibody Screen NEGATIVE Micro: Microbiology 10/22/21 Unknown Wound - Knee Gram Stain - Final 10/22/21 Unknown Wound - Knee Wound Culture - Final Morganella morganii sp morgani Corynebacterium striatum Vancomycin Resist. E. faecium Corynebacterium amycolatum 10/22/21 Unknown Wound - Knee Anaerobic Culture - Preliminary Checking for anaerobes, further studies to follow. Radiology Impression Chest X-Ray 10/26/21 01:15 IMPRESSION: The findings suggest possible multifocal pneumonia. Electronically Signed: Jayne Barrera MD at 6:14 EDT Reading Location ID and State: [facility] / [place] , Service support , Charges/Coding Visit Charges Inpatient E&M: 89828 Init Hosp L3
[2021-10-26] MEDS: Venlafaxine XR 75 MG Capsule PO (17:27)
[2021-10-26] MEDS: Linezolid 600 MG Tablet PO ×2 (17:27→22:12)
[2021-10-26] MEDS: Ascorbic Acid 500 MG Tablet 250 MG PO (17:28)
[2021-10-26] MEDS: Ciprofloxacin 500 MG Tablet PO ×2 (17:28→22:12)
[2021-10-26 17:38] LABS: Absolute Lymphocyte Count 1.13 X10^3/uL (0.83-4.51); Absolute Neutrophil Count 2.5 X10^3/uL (2.0-7.7); Basophil# 0.04 X10^3/uL; Basophil% 0.9 % (0-1); Eosinophil# 0.16 X10^3/uL; Eosinophils% 3.7 % (0-5); Hematocrit 32.4 % (37-47); Lymphocyte # 1.13 X10^3/ul (0.83-4.51); Lymphocyte % 26.1 % (19-41); Mean Corp Hgb Conc 30.9 g/dL (32-36); Mean Corpuscular Hgb 34.7 pg (27.0-32.0); Mean Corpuscular Volume 112.5 fL (81-99); Mean Platelet Vol. 9.1 fl (6.2-12.0); Monocyte# 0.43 X10^3/uL; Monocyte% 9.9 % (0-10); NRBC Flagged by Analyzer 0 % (0-5); Neutrophil # 2.53 X10^3/uL (2.7-7.7); Neutrophil % 58.5 % (47-70); POSITIVE COUNT YES; POSITIVE MORPHOLOGY YES; Platelet Count 92 K/mm3 (150-450); RBC Distribution Width CV 16.1 % (11.6-14.6); RBC Distribution Width SD 65.6 fl (35.1-43.9); Red Blood Count 2.88 M/mm3 (4.2-5.4); White Blood Count 4.3 K/mm3 (4.4-11.0)
[2021-10-26 18:09] LABS: ALB/GLOB Ratio 0.4 RATIO (0.9-2.4); AST(SGOT) 79 U/L (15-37); Alanine Aminotransfer ALT/SGPT 39 U/L (13-56); Albumin, Serum 1.4 g/dL (3.2-5.0); Alkaline Phosphatase 109 U/L (45-117); Anion Gap 4 (5-15); BUN 24 mg/dL (7-18); BUN/Creat Ratio 39.6 RATIO (10-20); Calcium,Total 8.8 mg/dL (8.5-10.1); Chloride 114 mmol/L (98-107); Creatinine, Serum 0.61 mg/dL (0.55-1.02); EST Glomerular Filtration Rate 102 mL/min (>60); Est Glom Filt Rate - Afr Amer 124 mL/min (>60); Estimated Creatinine Clearance 34.91 ml/min; Globulin 3.6 g/dL (2.2-4.2); Glucose 94 mg/dL (74-106); Phosphorus 2.5 mg/dL (2.5-4.9); Potassium 4.6 mmol/L (3.5-5.1); Sodium Level 141 mmol/L (136-145)
[2021-10-26 18:11] LABS: Differential Indicated SCAN CRITERIA MET
[2021-10-26 18:14] LABS: Platelet Estimate MOD DEC (ADEQ); Red Cell Morphology N CHROM NORMAL (NORM C&C)
[2021-10-26 18:15] LABS: Anisocytosis 1+; Hypochromasia RARE; Macrocytosis 1+; Ovalocyte RARE; Tear Drop Cell RARE
[2021-10-26 18:19] LABS: Lactic Acid 2.2 mmol/L (0.4-1.9)
[2021-10-26 21:33] LABS: Reflex Lactate? Y
[2021-10-26] MEDS: 0.9% Normal Saline 1,000 ML 999 ML IV (21:36)
--- NOTE | 2021-10-26 21:40 | RAD_ITS ---
HISTORY: hypoxia EXAMINATION/TECHNIQUE: XR Chest 1 View: Portable upright AP chest x-ray COMPARISON: 10/26/21 at 5:25 AM FINDINGS: LINES/DEVICES: None. LUNGS: Hazy bilateral airspace opacities with increasing opacity in the left mid and lower lung field. MEDIASTINUM AND CARDIOVASCULAR STRUCTURES: Cardiac silhouette not enlarged. Central airways and mediastinal contour are unremarkable. BONES AND SOFT TISSUES: No acute bony abnormalities. RAD/Chest 1 View (Portable) IMPRESSION: Increasing air space disease left mid and lower lung field. at 2247 Reported and signed by: Heraclio Cates MD Electronically Signed: Heraclio Cates MD at 22:46 EDT ,
[2021-10-26] MEDS: Menthol/Lanolin/Calamine/Znox 113 GM Tube 1 APPLIC TOPICAL (22:12)
[2021-10-26] MEDS: Heparin Injection (Vial) 5,000 UNIT/ML VIAL 5000 UNIT SC (22:13)
--- NOTE | 2021-10-26 22:28 | CPS ---
Talked to patient about CPAP. Patient stated that she doesn't wear one at night, and does not wish to wear one during her hospital stay.
--- NOTE | 2021-10-26 22:34 | NURSING ---
Pt informed of larger bed/mattress being available for her comfort, pt stated, I'd rather stay just like I am. Do you know how many beds I've been in already? Besides, I don't want to make it any harder on you guys. Explained to pt that staff cannot fully turn her to care for/visualize her backside, it would be in her best interest to change beds and not to worry about staff. Pt cont to refuse offer of changing beds, repeating that she wants to stay like she is. Wound care provided to caitlin lateral abd folds, cleansed w/soap and water,rinsed and patted dry. New strips of Aquacel AG placed over wound beds and ABD pads placed to keep skin off of skin. Pot tolerated procedure, c/o pain when abd panis lifted to expose wounds on either side and when the washcloths touched her lightly.
[2021-10-26 23:32] LABS: Lactic Acid 1.6 mmol/L (0.4-1.9)
[2021-10-27] VITALS (36 sets, daily range): BP systolic 86–121; BP diastolic 41–80; PULSE 69–137; RESP 13–35; TEMP 35.8–36.6; O2SAT 93–98
[2021-10-27 05:55] LABS: Absolute Lymphocyte Count 1.49 X10^3/uL (0.83-4.51); Absolute Neutrophil Count 3.1 X10^3/uL (2.0-7.7); Basophil# 0.08 X10^3/uL; Basophil% 1.4 % (0-1); Eosinophil# 0.26 X10^3/uL; Eosinophils% 4.7 % (0-5); Lymphocyte # 1.49 X10^3/ul (0.83-4.51); Lymphocyte % 26.9 % (19-41); Mean Corp Hgb Conc 32.3 g/dL (32-36); Mean Corpuscular Hgb 35.1 pg (27.0-32.0); Mean Corpuscular Volume 108.8 fL (81-99); Mean Platelet Vol. 8.8 fl (6.2-12.0); Monocyte# 0.52 X10^3/uL; Monocyte% 9.4 % (0-10); NRBC Flagged by Analyzer 0 % (0-5); Neutrophil # 3.12 X10^3/uL (2.7-7.7); Neutrophil % 56.5 % (47-70); Platelet Count 102 K/mm3 (150-450); RBC Distribution Width CV 16.2 % (11.6-14.6); RBC Distribution Width SD 64.8 fl (35.1-43.9); Red Blood Count 2.85 M/mm3 (4.2-5.4); White Blood Count 5.5 K/mm3 (4.4-11.0)
[2021-10-27 06:21] LABS: ALB/GLOB Ratio 0.4 RATIO (0.9-2.4); AST(SGOT) 81 U/L (15-37); Alanine Aminotransfer ALT/SGPT 39 U/L (13-56); Albumin, Serum 1.4 g/dL (3.2-5.0); Alkaline Phosphatase 110 U/L (45-117); Anion Gap 3 (5-15); BUN 25 mg/dL (7-18); BUN/Creat Ratio 33.9 RATIO (10-20); Chloride 115 mmol/L (98-107); Creatinine, Serum 0.74 mg/dL (0.55-1.02); EST Glomerular Filtration Rate 82 mL/min (>60); Est Glom Filt Rate - Afr Amer 99 mL/min (>60); Estimated Creatinine Clearance 34.91 ml/min; Globulin 3.5 g/dL (2.2-4.2); Glucose 100 mg/dL (74-106); Magnesium 1.8 mg/dL (1.6-2.6); Phosphorus 2.6 mg/dL (2.5-4.9); Potassium 4.6 mmol/L (3.5-5.1); Protein, Total 4.9 g/dL (6.4-8.2); Sodium Level 141 mmol/L (136-145); Thyroid Stim Hormone (TSH) 2.25 uIU/mL (0.358-3.74)
[2021-10-27] MEDS: Heparin Injection (Vial) 5,000 UNIT/ML VIAL 5000 UNIT SC ×3 (06:23→22:33)
--- NOTE | 2021-10-27 06:48 | PN.CC_ITS ---
Assessment & Plan Assessment/Plan (1) Severe sepsis: (2) Pancytopenia: (3) Obesity: (4) Abscess of left lower leg: PLAN: RECOMMENDATIONS: 1. Increase activity as tolerated 2. Initiate pressors if necessary. Consider boluses for hypotension 3. Antibiotics per infectious disease. Okay p.o. given high bioavailability 4. Wean pressors as tolerated 5. Hold baseline antihypertensives 6. Possible AVAPS overnight if hypoxic IMPRESSIONS: 1. Severe sepsis secondary to deep popliteal wound infection status post debridement postop day #1 Clinical suspicion for bacteremia following debridement of popliteal wound infection. Patient with polymicrobial infection including VRE. Patient in contact precautions. Patient has been placed on p.o. antibiotics, but is safe to swallow and these medications have high bioavailability. Patient failed additional fluid boluses, so was ultimately placed on pressors. Increased creat inine suggestive of endorgan damage. Wean pressors as tolerated. 2. Pancytopenia Slightly improved. Clinical suspicion secondary to reported cirrhosis. Patient does not have any indication for transfusion at this time. Patient is on baseline iron supplementation, so I do anticipate dark stools. 3. Morbid obesity/hypertension/intertriginous candidiasis/bipolar disorder/anxiety/reported sleep apnea Complicates care, management, recovery and prognosis. Patient states she does not wear BiPAP at baseline, but does have high risk factor for obstructive sleep apnea. Cannot exclude the need for BiPAP overnight. AVAPS would be a sa fe option if necessary. Hold antihypertensives. Okay to use topical nystatin. Will switch BuSpar to as needed as this could exacerbate problem #1. TIME: 32 minutes critical care time spent addressing patient's septic shock, morbid obesity, pancytopenia, review of all data and collaboration with care team Subjective Subjective Patient did okay overnight. Patient did have a PICC line placed for access and pressors. Unfortunately, patient became progressively hypotensive overnight requiring initiation of pressor therapy. Patient's oxygen requirements have improved slightly. Patient reports significant discomfort of the lower extremity and has not been overly enthusiastic about repositioning per nursing. Patient is not reporting any nausea or vomiting. Patient had refused transfer to a bariatric bed overnight. Objective Data Objective Data Vital Signs: Vital Signs Temp Pulse Resp BP Pulse Ox 36.2 C L 84 21 H 112/49 L 95 10/27/21 04:00 10/27/21 04:00 10/27/21 04:00 10/27/21 04:00 10/27/21 04:00 Oxygen Flow Rate (L/min) 2 Oxygen Delivery Method Nasal Cannula Weight: 141.2 kg Body Mass Index (BMI) 60.7 Intake & Output: Intake and Output for Last 24 Hours 10/25/21 10/26/21 10/27/21 23:59 23:59 23:59 Intake Total 3883.33 / 3883.33 4925.00 / 4925.00 18.80 / 18.80 Output Total 775 / 775 900 / 1100 200 / 200 Balance 3108.33 / 3108.33 4025.00 / 3825.00 -181.20 / -181.20 Lab / Micro Data Result Diagrams: 10/27/21 05:47 10/27/21 05:47 Labs: Laboratory Results - last 24 hr 10/26/21 04:54: Blood Type A POSITIVE, Antibody Screen NEGATIVE 10/26/21 17:25: WBC 4.3 L, RBC 2.88 L, Hgb 10.0 L, Hct 32.4 L, MCV 112.5 H, MCH 34.7 H, MCHC 30.9 L, RDW Std Deviation 65.6 H, RDW Coeff of Pako 16.1 H, Plt Count 92 L, MPV 9.1, Immature Gran % (Auto) 0.900, Neut % (Auto) 58.5, Lymph % (Auto) 26.1, [place] % (Auto) 9.9, Eos % (Auto) 3.7, Baso % (Auto) 0.9, Absolute Neuts (auto) 2.5, Absolute Lymphs (auto) 1.13, Nucleated RBC % 0, Platelet Estimate MOD DEC, RBC Morphology N CHROM, Hypochromasia RARE, Anisocytosis 1+, Macrocytosis 1+, Tear Drop Cells RARE, Ovalocytes RARE 10/26/21 17:25: Sodium 141, Potassium 4.6, Chloride 114 H, Carbon Dioxide 23.0, Anion Gap 4 L, BUN 24 H, Creatinine 0.61, Estim Creat Clear Calc 34.91, Est GFR (MDRD) Af Amer 124, Est GFR (MDRD) Non-Af 102, BUN/Creatinine Ratio 39.6 H, Glucose 94, Calcium 8.8, Phosphorus 2.5, Magnesium 2.0, Total Bilirubin 0.70, AST 79 H, ALT 39, Alkaline Phosphatase 109, Total Protein 5.0 L, Albumin 1.4 L, Globulin 3.6, Albumin/Globulin Ratio 0.4 L 10/26/21 17:25: Lactic Acid 2.2 H* 10/26/21 22:50: Lactic Acid 1.6 10/27/21 05:47: WBC 5.5, RBC 2.85 L, Hgb 10.0 L, Hct 31.0 L, MCV 108.8 H, MCH 35.1 H, MCHC 32.3, RDW Std Deviation 64.8 H, RDW Coeff of Pako 16.2 H, Plt Count 102 L, MPV 8.8, Immature Gran % (Auto) 1.100 H, Neut % (Auto) 56.5, Lymph % (Auto) 26.9, [place] % (Auto) 9.4, Eos % (Auto) 4.7, Baso % (Auto) 1.4 H, Absolute Neuts (auto) 3.1, Absolute Lymphs (auto) 1.49, Nucleated RBC % 0 10/27/21 05:47: Sodium 141, Potassium 4.6, Chloride 115 H, Carbon Dioxide 23.0, Anion Gap 3 L, BUN 25 H, Creatinine 0.74, Estim Creat Clear Calc 34.91, Est GFR (MDRD) Af Amer 99, Est GFR (MDRD) Non-Af 82, BUN/Creatinine Ratio 33.9 H, Glucose 100, Calcium 9.0, Phosphorus 2.6, Magnesium 1.8, Total Bilirubin 1.00, AST 81 H, ALT 39, Alkaline Phosphatase 110, Total Protein 4.9 L, Albumin 1.4 L, Globulin 3.5, Albumin/Globulin Ratio 0.4 L, TSH 2.25 Micro: Microbiology 10/22/21 Unknown Wound - Knee Gram Stain - Final 10/22/21 Unknown Wound - Knee Wound Culture - Final Morganella morganii sp morgani Corynebacterium striatum Vancomycin Resist. E. faecium Corynebacterium amycolatum 10/22/21 Unknown Wound - Knee Anaerobic Culture - Preliminary Checking for anaerobes, further studies to follow. 10/22/21 15:39 Blood Culture (Wb) - Right Wrist Blood Culture - Preliminary No growth in 48 hours. 10/22/21 15:25 Blood Culture (Wb) - Left Hand Blood Culture - Preliminary No growth in 48 hours. 10/22/21 16:20 Urine, Catheterized Urine Culture - Final Culture exhibits no growth. Radiography Diagnostic Testing: Radiology Impression Chest X-Ray 10/26/21 21:40 IMPRESSION: Increasing air space disease left mid and lower lung field. at 2247 Reported and signed by: Heraclio Cates MD Electronically Signed: Heraclio Cates MD at 22:46 EDT Reading Location ID and State: [facility] / [place] Tel , Service support , Physical Exam Const alert, oriented x3, no apparent distress and well nourished Constitutional Narrative: Appears older than stated age. Exam Limitations: no limitations Nutritional Appearance: morbidly obese HEENT head/scalp atraumatic, moist oral mucous membranes and oropharynx normal HEENT Narrative: Edentulous, Mallampati is 3, no thrush Head and Scalp: normocephalic Chest inspection of chest normal Chest: symmetrical chest wall rise; Negative for crepitus Resp normal respiratory effort, no retractions, no use of accessory muscles and clear to auscultation bilaterally Resp Narrative: Distant secondary to body habitus Auscultation: Negative for rales, rhonchi or wheezes Cardio regular rhythm, S1 normal heart sound, S2 normal heart sound, no rub, no gallops, no clicks and no JVD; Negative for no murmurs Cardio Narrative: 4 out of 6 systolic murmur-loudest at left upper sternal border. EKG shows sinus tachycardia. Rate: tachycardic GI normal to inspection, nondistended, normoactive bowel sounds, soft to palpation, non-tender and non-distended Extremity Extremity Narrative: Left lower extremity is wrapped in an Tommie bandage. General Extremity: edema bilateral (4+ bilateral feet) lower extremity; Negative for clubbing or cyanosis Peripheral Pulses: Yes pulses 2+ throughout Skin Skin Narrative: Lower extremity wound is wrapped in bandages clean and dry Neuro oriented x3, CN's II-XII intact bilaterally, moves all extremities and no focal motor deficits Neuro Narrative: Marked generalized weakness but no specific focal deficit Sensorium / Orientation: awake and alert Speech: speech normal Psych Psych Narrative: Affect is flat and mood seems depressed Mood & Affect: depressed Charges/Coding Procedures Hospitalists Procedures: [id number] Critial Care 1st Hr
[2021-10-27] MEDS: Morphine 4 MG/ML Syringe IV (08:28)
[2021-10-27] MEDS: Menthol/Lanolin/Calamine/Znox 113 GM Tube 1 APPLIC TOPICAL ×2 (08:29→22:36)
--- NOTE | 2021-10-27 10:01 | PCM.PN.ID ---
Physical Exam Narrative Moved to icu s/p OR yesterday. Remains on low dose pressor. Feeling ok, no fever, no cough. Pain controlled. Const no apparent distress General Appearance: cooperative Resp clear to auscultation bilaterally Cardio regular rate and regular rhythm GI soft to palpation, non-tender and non-distended Skin Skin Narrative: no new rash ID ID: Route of nutrition/ use of supplements: [] Nutritional Intake: [] IV Site: [] Griggs Catheter: [] Assessment & Plan Assessment/Plan (1) Leg wound, left: PLAN: Wound cx with VRE, diphtheroids x2, and morganella. 10/26 changed vanc/josefina to linezolid/cipro. Taken to OR 10/[address] Agee for I&D complicated by post-op hypotension. Now in icu, on low dose levophed. ? new pneumonia, will cont abx. Will follow
[2021-10-27] MEDS: Linezolid 600 MG Tablet PO ×2 (10:43→22:33)
[2021-10-27] MEDS: TITRATION PARAMETER CHANGE 1 EACH IV (10:44)
[2021-10-27] MEDS: Ciprofloxacin 500 MG Tablet PO ×2 (10:44→22:33)
[2021-10-27] MEDS: Ascorbic Acid 500 MG Tablet 250 MG PO (10:44)
[2021-10-27] MEDS: Midodrine HCl 5 MG Tablet 10 MG PO ×2 (10:44→16:33)
[2021-10-27] MEDS: Venlafaxine XR 75 MG Capsule PO (10:44)
[2021-10-27] MEDS: DAKIN'S SOL HALF STRENGTH (=0.25%) 1 APPLIC TOPICAL (10:46)
[2021-10-27] MEDS: CHLORHEXIDINE GLUC 2% CLOTH 1 EACH TOWELETTE TOPICAL (10:47)
[2021-10-27] MEDS: Acetaminophen 325 MG Tablet 650 MG PO (12:00)
[2021-10-27] MEDS: oxyCODONE 5 MG Tablet 10 MG PO (12:00)
--- NOTE | 2021-10-27 13:17 | WOUNDNOTE ---
wound photo: left posterior knee
--- NOTE | 2021-10-27 15:17 | PCM.PN.HOSP ---
Subjective Subjective As noted previously patient required ICU transfer after surgery secondary to soft blood pressures. She did require pressors to be initiated overnight and did get another liter fluid bolus ordered by the overnight hospitalist. She was on as much as 8 mics per minute of Levophed and is currently down to 3 mics per minute. She denies any complaints other than the leg pain related to her recent surgery. Objective Data Objective Data Vital Signs: Vital Signs Temp Pulse Resp BP Pulse Ox 97.0 F L 77 13 92/54 L 95 10/27/21 14:15 10/27/21 15:00 10/27/21 15:00 10/27/21 15:00 10/27/21 15:00 Oxygen Flow Rate (L/min) 2 Oxygen Delivery Method Nasal Cannula Weight: 155.8 kg Body Mass Index (BMI) 60.7 Intake & Output: Intake and Output for Last 24 Hours 10/25/21 10/26/21 10/27/21 23:59 23:59 23:59 Intake Total 3883.33 / 3883.33 4925.00 / 4925.00 109.47 / 109.47 Output Total 775 / 775 900 / 1100 400 / 400 Balance 3108.33 / 3108.33 4025.00 / 3825.00 -290.53 / -290.53 Lab / Micro Data Result Diagrams: 10/27/21 05:47 10/27/21 05:47 Labs: Laboratory Results - last 24 hr 10/26/21 17:25: WBC 4.3 L, RBC 2.88 L, Hgb 10.0 L, Hct 32.4 L, MCV 112.5 H, MCH 34.7 H, MCHC 30.9 L, RDW Std Deviation 65.6 H, RDW Coeff of Pako 16.1 H, Plt Count 92 L, MPV 9.1, Immature Gran % (Auto) 0.900, Neut % (Auto) 58.5, Lymph % (Auto) 26.1, [place] % (Auto) 9.9, Eos % (Auto) 3.7, Baso % (Auto) 0.9, Absolute Neuts (auto) 2.5, Absolute Lymphs (auto) 1.13, Nucleated RBC % 0, Platelet Estimate MOD DEC, RBC Morphology N CHROM, Hypochromasia RARE, Anisocytosis 1+, Macrocytosis 1+, Tear Drop Cells RARE, Ovalocytes RARE 10/26/21 17:25: Sodium 141, Potassium 4.6, Chloride 114 H, Carbon Dioxide 23.0, Anion Gap 4 L, BUN 24 H, Creatinine 0.61, Estim Creat Clear Calc 34.91, Est GFR (MDRD) Af Amer 124, Est GFR (MDRD) Non-Af 102, BUN/Creatinine Ratio 39.6 H, Glucose 94, Calcium 8.8, Phosphorus 2.5, Magnesium 2.0, Total Bilirubin 0.70, AST 79 H, ALT 39, Alkaline Phosphatase 109, Total Protein 5.0 L, Albumin 1.4 L, Globulin 3.6, Albumin/Globulin Ratio 0.4 L 10/26/21 17:25: Lactic Acid 2.2 H* 10/26/21 22:50: Lactic Acid 1.6 10/27/21 05:47: WBC 5.5, RBC 2.85 L, Hgb 10.0 L, Hct 31.0 L, MCV 108.8 H, MCH 35.1 H, MCHC 32.3, RDW Std Deviation 64.8 H, RDW Coeff of Pako 16.2 H, Plt Count 102 L, MPV 8.8, Immature Gran % (Auto) 1.100 H, Neut % (Auto) 56.5, Lymph % (Auto) 26.9, [place] % (Auto) 9.4, Eos % (Auto) 4.7, Baso % (Auto) 1.4 H, Absolute Neuts (auto) 3.1, Absolute Lymphs (auto) 1.49, Nucleated RBC % 0 10/27/21 05:47: Sodium 141, Potassium 4.6, Chloride 115 H, Carbon Dioxide 23.0, Anion Gap 3 L, BUN 25 H, Creatinine 0.74, Estim Creat Clear Calc 34.91, Est GFR (MDRD) Af Amer 99, Est GFR (MDRD) Non-Af 82, BUN/Creatinine Ratio 33.9 H, Glucose 100, Calcium 9.0, Phosphorus 2.6, Magnesium 1.8, Total Bilirubin 1.00, AST 81 H, ALT 39, Alkaline Phosphatase 110, Total Protein 4.9 L, Albumin 1.4 L, Globulin 3.5, Albumin/Globulin Ratio 0.4 L, TSH 2.25 Micro: Microbiology 10/26/21 Unknown Tissue - Leg, Left Gram Stain - Final 10/26/21 Unknown Tissue - Leg, Left Tissue Culture - Preliminary No growth-Final to follow 10/22/21 Unknown Wound - Knee Gram Stain - Final 10/22/21 Unknown Wound - Knee Wound Culture - Final Morganella morganii sp morgani Corynebacterium striatum Vancomycin Resist. E. faecium Corynebacterium amycolatum 10/22/21 Unknown Wound - Knee Anaerobic Culture - Preliminary Checking for anaerobes, further studies to follow. 10/22/21 15:39 Blood Culture (Wb) - Right Wrist Blood Culture - Preliminary No growth in 48 hours. 10/22/21 15:25 Blood Culture (Wb) - Left Hand Blood Culture - Preliminary No growth in 48 hours. 10/22/21 16:20 Urine, Catheterized Urine Culture - Final Culture exhibits no growth. Radiography Diagnostic Testing: Radiology Impression Echocardiogram 10/26/21 16:10 Interpretation Summary Limited study. The estimated ejection fraction is 55 %. Unable to assess diastolic dysfunction. Ordering Physician: Colleen Boone Referring Physician: Radha Sebastian Performed By: Ivette Obrien, MAYANK, RVT Chest X-Ray 10/26/21 21:40 IMPRESSION: Increasing air space disease left mid and lower lung field. at 2247 Reported and signed by: Heraclio Cates MD Electronically Signed: Heraclio Cates MD at 22:46 EDT , Physical Exam Const alert, oriented x3, no apparent distress and well nourished Constitutional Narrative: Older, morbidly obese, white female lying in bed, appears comfortable and nontoxic, nursing at bedside General Appearance: cooperative, well kempt and well developed Orientation / Consciousness: awake, oriented to person, oriented to place and oriented to time Exam Limitations: no limitations Nutritional Appearance: morbidly obese HEENT normocephalic, head/scalp atraumatic, hearing grossly normal bilaterally, moist oral mucous membranes and oropharynx normal HEENT Narrative: Edentulous, Mallampati is 3, no thrush Head and Scalp: normocephalic Eyes Eyes Narrative: Neck nuchal rigidity and thyroid normal General: trachea midline Resp normal respiratory effort, no retractions, no use of accessory muscles and clear to auscultation bilaterally Resp Narrative: Distant secondary to body habitus Auscultation: Negative for crackles, rales, rhonchi or wheezes Cardio regular rate, regular rhythm, S1 normal heart sound, S2 normal heart sound, no rub, no gallops, no clicks and no JVD; Negative for no murmurs Cardio Narrative: Distant secondary to body habitus GI normal to inspection, nondistended, normoactive bowel sounds, soft to palpation, non-tender and non-distended Extremity no clubbing, cyanosis or edema Extremity Narrative: Left lower extremity wound dressed-dressing is currently clean and dry--> pictures from wound care reviewed and area of excision is quite large, no signs of infection or drainage and tissue is granular and pink at this time Peripheral Pulses: Yes pulses 2+ throughout Skin General Skin Exam: no breakdown Neuro oriented x3, CN's II-XII intact bilaterally, moves all extremities, no focal motor deficits and no sensory deficits noted Sensorium / Orientation: awake and alert Speech: speech normal Psych Mood & Affect: depressed Assessment & Plan Assessment/Plan (1) Abscess of left lower leg: (2) Pancytopenia: PLAN: Deep popliteal space wound infection -OR yesterday 10/26/2021 -Continue antibiotics as ordered with oral ciprofloxacin and linezolid -Culture showed polymicrobial infection with 2 corynebacterium species/bank resistant unification/Morganella -ID is following and driving antibiotic therapy--> await recommendations for length of treatment -We will need placement for wound care and therapy services at discharge -Case management has initiated this process Acute hypoxic respiratory failure -Patient was hypoxic on 4 L after surgery -Suspect this was multifactorial she is now unable to be weaned to room air -Encourage out of bed -Encourage incentive spirometry -May need some gentle diuresis once her blood pressure allows that she was given marked amount of fluids intraoperatively and postoperatively for her hypotension Pancytopenia -Anemia and thrombocytopenia are baseline however leukopenia is new -Suspect antibiotics may be related to leukopenia versus dilution from IV fluids -Discontinue IV fluids -Repeat lab in a.m. -Anemia and thrombocytopenia is related to known cirrhosis -Continue home iron supplementation Hypotension -Patient with postoperative hypotension -Currently on Levophed but weaning as able -Start midodrine 10 mg 3 times daily -Postoperative hemoglobin is stable and hemoglobin remained stable this morning Intertriginous candidiasis -Continue nystatin Hypertension -Continue to hold antihypertensives with soft blood pressures and pressor requirements Morbid obesity -Recommend weight loss -Complicates treatment, prognosis, outcomes Depression/anxiety -Continue home Effexor -Continue home BuSpar DVT prophylaxis -Continue subcu heparin 3 times daily CODE STATUS -Full code however this has not been verified and she was most recently DNR [facility] -We will need to discuss with her further Charges/Coding Visit Charges Inpatient E&M: 82946 Subs Hosp L2
[2021-10-27] MEDS: Juven (unflavored) Packet 1 PACKET PO (16:33)
--- NOTE | 2021-10-27 23:44 | PCM.PN.SRG ---
Subjective Subjective Postop #1 Patient complains of wound pain. Tolerated the Dakin's dressing change reasonably well. Most of the pain occurred with positioning the patient. Objective Data Objective Data Vital Signs: Vital Signs Temp Pulse Resp BP Pulse Ox 97.9 F 123 H 21 H 107/46 L 94 10/27/21 16:00 10/27/21 20:00 10/27/21 18:00 10/27/21 18:00 10/27/21 18:00 Oxygen Flow Rate (L/min) 2 Oxygen Delivery Method Nasal Cannula Weight: 343 lb 7.683 oz Body Mass Index (BMI) 60.7 Intake & Output: Intake and Output for Last 24 Hours 10/25/21 10/26/21 10/27/21 23:59 23:59 23:59 Intake Total 3883.33 / 3883.33 4925.00 / 4925.00 360.87 / 360.87 Output Total 775 / 775 900 / 1100 500 / 500 Balance 3108.33 / 3108.33 4025.00 / 3825.00 -139.13 / -139.13 Lab / Micro Data Attestation: I reviewed the patient's lab results. Result Diagrams: 10/29/21 05:12 10/29/21 05:12 Labs: Laboratory Results - last 24 hr 10/27/21 05:47: WBC 5.5, RBC 2.85 L, Hgb 10.0 L, Hct 31.0 L, MCV 108.8 H, MCH 35.1 H, MCHC 32.3, RDW Std Deviation 64.8 H, RDW Coeff of Pako 16.2 H, Plt Count 102 L, MPV 8.8, Immature Gran % (Auto) 1.100 H, Neut % (Auto) 56.5, Lymph % (Auto) 26.9, [place] % (Auto) 9.4, Eos % (Auto) 4.7, Baso % (Auto) 1.4 H, Absolute Neuts (auto) 3.1, Absolute Lymphs (auto) 1.49, Nucleated RBC % 0 10/27/21 05:47: Sodium 141, Potassium 4.6, Chloride 115 H, Carbon Dioxide 23.0, Anion Gap 3 L, BUN 25 H, Creatinine 0.74, Estim Creat Clear Calc 34.91, Est GFR (MDRD) Af Amer 99, Est GFR (MDRD) Non-Af 82, BUN/Creatinine Ratio 33.9 H, Glucose 100, Calcium 9.0, Phosphorus 2.6, Magnesium 1.8, Total Bilirubin 1.00, AST 81 H, ALT 39, Alkaline Phosphatase 110, Total Protein 4.9 L, Albumin 1.4 L, Globulin 3.5, Albumin/Globulin Ratio 0.4 L, TSH 2.25 Micro: Microbiology 10/26/21 Unknown Tissue - Leg, Left Gram Stain - Final 10/26/21 Unknown Tissue - Leg, Left Tissue Culture - Preliminary No growth-Final to follow 10/22/21 Unknown Wound - Knee Gram Stain - Final 10/22/21 Unknown Wound - Knee Wound Culture - Final Morganella morganii sp morgani Corynebacterium striatum Vancomycin Resist. E. faecium Corynebacterium amycolatum 10/22/21 Unknown Wound - Knee Anaerobic Culture - Preliminary Checking for anaerobes, further studies to follow. 10/22/21 15:39 Blood Culture (Wb) - Right Wrist Blood Culture - Preliminary No growth in 48 hours. 10/22/21 15:25 Blood Culture (Wb) - Left Hand Blood Culture - Preliminary No growth in 48 hours. 10/22/21 16:20 Urine, Catheterized Urine Culture - Final Culture exhibits no growth. Radiography Diagnostic Testing: Radiology Impression Echocardiogram 10/26/21 16:10 Interpretation Summary Limited study. The estimated ejection fraction is 55 %. Unable to assess diastolic dysfunction. Ordering Physician: Colleen Boone Referring Physician: Radha Sebastian Performed By: Ivette Obrien, MARILYNCS, RVT Physical Exam Narrative General - Alert and Oriented HEENT - PERRL. EOMI. Neck - Supple and nontender. Abdomen - Soft and nondistended. Extremities - left posterior leg and popiteal area is clean. No active bleeding seen. No further evidence of infection. Popliteal vessels not exposed. Dakin's dressing change was reasonably tolerated. Most of her pain is with positionin of the leg. Neuro - CN II-XII grossly intact. Psych - Normal mood and affect. Assessment & Plan Assessment/Plan (1) Open wound of left lower leg with complication: (2) Abscess of left lower leg: (3) Cellulitis of leg, left: (4) Skin necrosis: (5) Obesity: PLAN: Wound left posterior leg and popliteal area are clean. No active bleeding noted. Redressed wound with Dakin's dressing changes. Operative culture showed Gram negative rods, Enterococcus faecalis, and Corynebacterium striatum. Preoperative culture showed Morganella morganii, Vancomycin resistant enterococcus, Corynebacterium striatum, and Corynebacterium amycolatum. She had been on Vancomycin and Zosyn. They have been changed to Linezolid and Cipro. Anticipate increased metabolic demands from the wound. Encourage nutritional supplementation with protein to help the healing process. Awaiting transfer to an ECF. [facility] followup [facility]. If there is a plateau in the healing process, can proceed with delayed closure with skin grafting.
[2021-10-28] VITALS (34 sets, daily range): BP systolic 92–153; BP diastolic 46–103; PULSE 64–83; RESP 11–22; TEMP 36.1–36.6; O2SAT 92–100
[2021-10-28 04:10] LABS: Absolute Neutrophil Count 5.4 X10^3/uL (2.0-7.7); Basophil# 0.07 X10^3/uL; Basophil% 0.8 % (0-1); Eosinophil# 0.37 X10^3/uL; Hematocrit 30.4 % (37-47); Hemoglobin 9.6 g/dL (12.0-15.0); Lymphocyte % 26.1 % (19-41); Mean Corp Hgb Conc 31.6 g/dL (32-36); Mean Corpuscular Hgb 35.2 pg (27.0-32.0); Mean Corpuscular Volume 111.4 fL (81-99); Mean Platelet Vol. 9.1 fl (6.2-12.0); Monocyte# 0.88 X10^3/uL; Monocyte% 9.6 % (0-10); NRBC Flagged by Analyzer 0 % (0-5); Neutrophil % 58.8 % (47-70); POSITIVE COUNT YES; POSITIVE MORPHOLOGY YES; Platelet Count 92 K/mm3 (150-450); RBC Distribution Width CV 16.7 % (11.6-14.6); RBC Distribution Width SD 67.4 fl (35.1-43.9); Red Blood Count 2.73 M/mm3 (4.2-5.4); White Blood Count 9.2 K/mm3 (4.4-11.0)
[2021-10-28 04:11] LABS: Differential Indicated SCAN CRITERIA MET
[2021-10-28 04:37] LABS: Anisocytosis 1+; Differential Comment SCANNED; Macrocytosis 1+; Platelet Estimate SLT DEC (ADEQ)
[2021-10-28 04:40] LABS: ALB/GLOB Ratio 0.4 RATIO (0.9-2.4); AST(SGOT) 65 U/L (15-37); Alanine Aminotransfer ALT/SGPT 35 U/L (13-56); Albumin, Serum 1.5 g/dL (3.2-5.0); Alkaline Phosphatase 110 U/L (45-117); Anion Gap 3 (5-15); BUN 35 mg/dL (7-18); Calcium,Total 9.5 mg/dL (8.5-10.1); Chloride 116 mmol/L (98-107); Creatinine, Serum 1.46 mg/dL (0.55-1.02); EST Glomerular Filtration Rate 37 mL/min (>60); Est Glom Filt Rate - Afr Amer 45 mL/min (>60); Estimated Creatinine Clearance 23.91 ml/min; Globulin 3.5 g/dL (2.2-4.2); Glucose 104 mg/dL (74-106); Potassium 5.2 mmol/L (3.5-5.1); Sodium Level 142 mmol/L (136-145)
--- NOTE | 2021-10-28 07:03 | PCM.PN.INT ---
Assessment & Plan Assessment/Plan (1) Severe sepsis: (2) Pancytopenia: (3) Obesity: (4) Abscess of left lower leg: PLAN: RECOMMENDATIONS: 1. Increase activity as tolerated 2. Continue pressors. Wean as tolerated 3. Antibiotics per infectious disease. Okay p.o. given high bioavailability 4. Challenge with diuretics despite pressors 5. Hold baseline antihypertensives 6. Possible AVAPS overnight if hypoxic IMPRESSIONS: 1. Sepsis secondary to deep popliteal wound infection status post debridement postop day #1 Clinical suspicion for bacteremia following debridement of popliteal wound infection. Patient with polymicrobial infection including VRE. Patient in contact precautions. Patient has been placed on p.o. antibiotics, but is safe to swallow and these medications have high bioavailability. ID following. Patient failed additional fluid boluses, so was ultimately placed on pressors. Increased creatinine suggestive of endorgan damage. Wean pressors as tolerated. 2. Pancytopenia Stable. Clinical suspicion secondary to reported cirrhosis. Patient does not have any indication for transfusion at this time. Patient is on baseline iron supplementation, so I do anticipate dark stools. 3. Morbid obesity/hypertension/intertriginous candidiasis/bipolar disorder/anxiety/reported sleep apnea Complicates care, management, recovery and prognosis. Patient states she does not wear BiPAP at baseline, but does have high risk factor for obstructive sleep apnea. Cannot exclude the need for BiPAP overnight. AVAPS would be a safe option if necessary. Hold antihypertensives. Okay to use topical nystatin. Will switch BuSpar to as needed as this could exacerbate problem #1. 4. Hyperkalemia/decreased urine output/acute kidney injury Patient with elevated creatinine and potassium this morning. Unclear at this point if patient has an element of decreased renal perfusion secondary to sepsis versus a component of overdistention from a cardiac perspective. Patient is significantly positive over the course of the hospitalization. Will attempt to challenge with Lasix. Can increase pressors if necessary, but this would address hyperkalemia and decreased urine output. TIME: 34 minutes critical care time spent addressing patient's septic shock, acute kidney injury, morbid obesity, pancytopenia, review of all data and collaboration with care team Subjective Subjective Patient did okay overnight. Patient was able to get out of bed yesterday with therapy. Patient does remain on Levophed at low doses. Patient is still reporting some pain and required 2 L nasal cannula to maintain saturations. Nursing did report decreased urine output overnight Objective Data Objective Data Vital Signs: Vital Signs Temp Pulse Resp BP Pulse Ox 36.4 C L 68 22 H 104/55 L 98 10/28/21 00:00 10/28/21 06:00 10/28/21 06:00 10/28/21 06:00 10/28/21 06:00 Oxygen Flow Rate (L/min) 2 Oxygen Delivery Method Nasal Cannula Weight: 153.4 kg Body Mass Index (BMI) 60.7 Intake & Output: Intake and Output for Last 24 Hours 10/26/21 10/27/21 10/28/21 23:59 23:59 23:59 Intake Total 4925.00 / 4925.00 379.87 / 398.67 41.6 / 41.6 Output Total 900 / 1100 500 / 500 Balance 4025.00 / 3825.00 -120.13 / -101.33 41.6 / 41.6 Lab / Micro Data Result Diagrams: 10/28/21 03:50 10/28/21 03:50 Labs: Laboratory Results - last 24 hr 10/28/21 03:50: WBC 9.2, RBC 2.73 L, Hgb 9.6 L, Hct 30.4 L, MCV 111.4 H, MCH 35.2 H, MCHC 31.6 L, RDW Std Deviation 67.4 H, RDW Coeff of Pako 16.7 H, Plt Count 92 L, MPV 9.1, Immature Gran % (Auto) 0.700, Neut % (Auto) 58.8, Lymph % (Auto) 26.1, [place] % (Auto) 9.6, Eos % (Auto) 4.0, Baso % (Auto) 0.8, Absolute Neuts (auto) 5.4, Absolute Lymphs (auto) 2.40, Nucleated RBC % 0, Differential Comment SCANNED, Platelet Estimate SLT DEC, Anisocytosis 1+, Macrocytosis 1+ 10/28/21 03:50: Sodium 142, Potassium 5.2 H, Chloride 116 H, Carbon Dioxide 23.0, Anion Gap 3 L, BUN 35 H, Creatinine 1.46 H, Estim Creat Clear Calc 23.91, Est GFR (MDRD) Af Amer 45 L, Est GFR (MDRD) Non-Af 37 L, BUN/Creatinine Ratio 24.0 H, Glucose 104, Calcium 9.5, Total Bilirubin 0.90, AST 65 H, ALT 35, Alkaline Phosphatase 110, Total Protein 5.0 L, Albumin 1.5 L, Globulin 3.5, Albumin/Globulin Ratio 0.4 L Micro: Microbiology 10/26/21 Unknown Tissue - Leg, Left Gram Stain - Final 10/26/21 Unknown Tissue - Leg, Left Tissue Culture - Preliminary No growth-Final to follow 10/22/21 Unknown Wound - Knee Gram Stain - Final 10/22/21 Unknown Wound - Knee Wound Culture - Final Morganella morganii sp morgani Corynebacterium striatum Vancomycin Resist. E. faecium Corynebacterium amycolatum 10/22/21 Unknown Wound - Knee Anaerobic Culture - Preliminary Checking for anaerobes, further studies to follow. 10/22/21 15:39 Blood Culture (Wb) - Right Wrist Blood Culture - Preliminary No growth in 48 hours. 10/22/21 15:25 Blood Culture (Wb) - Left Hand Blood Culture - Preliminary No growth in 48 hours. 10/22/21 16:20 Urine, Catheterized Urine Culture - Final Culture exhibits no growth. Radiography Diagnostic Testing: Radiology Impression Echocardiogram 10/26/21 16:10 Interpretation Summary Limited study. The estimated ejection fraction is 55 %. Unable to assess diastolic dysfunction. Ordering Physician: Colleen Boone Referring Physician: Radha Sebastian Performed By: Ivette Obrien, MAYANK, RVT Physical Exam Const alert, oriented x3, no apparent distress and well nourished Constitutional Narrative: Appears older than stated age. Exam Limitations: no limitations Nutritional Appearance: morbidly obese HEENT head/scalp atraumatic, moist oral mucous membranes and oropharynx normal HEENT Narrative: Edentulous, Mallampati is 3, no thrush Head and Scalp: normocephalic Chest inspection of chest normal Chest: symmetrical chest wall rise; Negative for crepitus Resp normal respiratory effort, no retractions, no use of accessory muscles and clear to auscultation bilaterally Resp Narrative: Distant secondary to body habitus Auscultation: Negative for rales, rhonchi or wheezes Cardio regular rhythm, S1 normal heart sound, S2 normal heart sound, no rub, no gallops, no clicks and no JVD; Negative for no murmurs Cardio Narrative: 4 out of 6 systolic murmur-loudest at left upper sternal border. EKG shows sinus tachycardia. Rate: tachycardic GI normal to inspection, nondistended, normoactive bowel sounds, soft to palpation, non-tender and non-distended Extremity Extremity Narrative: Left lower extremity is wrapped in an Tommie bandage. General Extremity: edema bilateral (4+ bilateral feet) lower extremity; Negative for clubbing or cyanosis Peripheral Pulses: Yes pulses 2+ throughout Skin Skin Narrative: Lower extremity wound is wrapped in bandages clean and dry Neuro oriented x3, CN's II-XII intact bilaterally, moves all extremities and no focal motor deficits Neuro Narrative: Marked generalized weakness but no specific focal deficit Sensorium / Orientation: awake and alert Speech: speech normal Psych Psych Narrative: Affect is flat and mood seems depressed Mood & Affect: depressed Charges/Coding Procedures Hospitalists Procedures: 39319 Critial Care 1st Hr
[2021-10-28] MEDS: Furosemide 40 MG/4 ML Vial IV (07:29)
[2021-10-28] MEDS: Heparin Injection (Vial) 5,000 UNIT/ML VIAL 5000 UNIT SC ×3 (07:29→21:39)
[2021-10-28] MEDS: DAKIN'S SOL HALF STRENGTH (=0.25%) 1 APPLIC TOPICAL (08:40)
[2021-10-28] MEDS: Menthol/Lanolin/Calamine/Znox 113 GM Tube 1 APPLIC TOPICAL ×2 (08:40→21:39)
[2021-10-28] MEDS: Juven (unflavored) Packet 1 PACKET PO ×2 (10:24→17:42)
[2021-10-28] MEDS: Linezolid 600 MG Tablet PO ×2 (10:24→21:39)
[2021-10-28] MEDS: Ciprofloxacin 500 MG Tablet PO ×2 (10:25→21:39)
[2021-10-28] MEDS: Ascorbic Acid 500 MG Tablet 250 MG PO (10:25)
[2021-10-28] MEDS: Acetaminophen 325 MG Tablet 650 MG PO (10:25)
[2021-10-28] MEDS: oxyCODONE 5 MG Tablet 10 MG PO (10:25)
[2021-10-28] MEDS: Ferrous Sulfate 325 MG Tablet PO (10:26)
[2021-10-28] MEDS: Venlafaxine XR 75 MG Capsule PO (10:26)
[2021-10-28] MEDS: Midodrine HCl 5 MG Tablet 10 MG PO ×3 (10:26→17:42)
--- NOTE | 2021-10-28 12:27 | PCM.PN.ID ---
Physical Exam Narrative BP improved, no fever Const no apparent distress Resp normal air movement and clear to auscultation bilaterally Cardio regular rate and regular rhythm GI soft to palpation, non-tender and non-distended Skin Skin Narrative: leg wrapped ID ID: Route of nutrition/ use of supplements: [] Nutritional Intake: [] IV Site: [] Griggs Catheter: [] Assessment & Plan Assessment/Plan (1) Leg wound, left: PLAN: Wound cx with VRE, diphtheroids x2, and morganella. 10/26 changed vanc/josefina to linezolid/cipro. Taken to OR 10/[address] Agee for I&D complicated by post-op hypotension. Now in icu, improving BP but still on some levophed. ? new pneumonia, will cont abx. Will follow
--- NOTE | 2021-10-28 12:31 | CASEMGMT ---
[facility] Work [facility] is unable to accept pt. BERNARDINO met with pt and informed that [facility] cannot accept. SW offered to review list of SNFs in [facility] to choose another facility. Pt states she does not want to review list, but will just return to [facility] at time of discharge. BERNARDINO inquired if son could be called to confirm pt choice and pt gave permission. Phone call to pt son Lucho Lee and informed of above conversation with pt. Lucho confirms that he will support whatever pt chooses and is ok with return to [facility]. Phone call to Anurag at [facility] and informed pt will be returning at discharge. [facility] is able to accept back. Updated clinicals faxed. Plan: Return to [facility], when medically ready [facility]
--- NOTE | 2021-10-28 13:43 | PN.HOSP_ITS ---
Subjective Subjective No significant issues overnight. Patient is down to 2 mcg/min on her Levophed. She is mentating well overnight. She is complaining of some leg pain but does indicate the as needed medication is working to relieve her symptoms. Her urine output was down a bit overnight. Objective Data Objective Data Vital Signs: Vital Signs Temp Pulse Resp BP Pulse Ox 97.9 F 68 17 111/58 L 99 10/28/21 12:00 10/28/21 13:00 10/28/21 13:00 10/28/21 13:00 10/28/21 13:00 Oxygen Flow Rate (L/min) 2 Oxygen Delivery Method Nasal Cannula Weight: 153.4 kg Body Mass Index (BMI) 60.7 Intake & Output: Intake and Output for Last 24 Hours 10/26/21 10/27/21 10/28/21 23:59 23:59 23:59 Intake Total 4925.00 / 4925.00 379.87 / 398.67 420.62 / 420.62 Output Total 900 / 1100 500 / 500 100 / 100 Balance 4025.00 / 3825.00 -120.13 / -101.33 320.62 / 320.62 Lab / Micro Data Result Diagrams: 10/28/21 03:50 10/28/21 03:50 Labs: Laboratory Results - last 24 hr 10/28/21 03:50: WBC 9.2, RBC 2.73 L, Hgb 9.6 L, Hct 30.4 L, MCV 111.4 H, MCH 35.2 H, MCHC 31.6 L, RDW Std Deviation 67.4 H, RDW Coeff of Pako 16.7 H, Plt Count 92 L, MPV 9.1, Immature Gran % (Auto) 0.700, Neut % (Auto) 58.8, Lymph % (Auto) 26.1, [place] % (Auto) 9.6, Eos % (Auto) 4.0, Baso % (Auto) 0.8, Absolute Neuts (auto) 5.4, Absolute Lymphs (auto) 2.40, Nucleated RBC % 0, Differential Comment SCANNED, Platelet Estimate SLT DEC, Anisocytosis 1+, Macrocytosis 1+ 10/28/21 03:50: Sodium 142, Potassium 5.2 H, Chloride 116 H, Carbon Dioxide 23.0, Anion Gap 3 L, BUN 35 H, Creatinine 1.46 H, Estim Creat Clear Calc 23.91, Est GFR (MDRD) Af Amer 45 L, Est GFR (MDRD) Non-Af 37 L, BUN/Creatinine Ratio 24.0 H, Glucose 104, Calcium 9.5, Total Bilirubin 0.90, AST 65 H, ALT 35, Alkaline Phosphatase 110, Total Protein 5.0 L, Albumin 1.5 L, Globulin 3.5, Albumin/Globulin Ratio 0.4 L Micro: Microbiology 10/26/21 Unknown Tissue - Leg, Left Gram Stain - Final 10/26/21 Unknown Tissue - Leg, Left Tissue Culture - Preliminary Gram negative tello GPC Poss Enterococcus sp Gram Positive Cocci 10/22/21 Unknown Wound - Knee Gram Stain - Final 10/22/21 Unknown Wound - Knee Wound Culture - Final Morganella morganii sp morgani Corynebacterium striatum Vancomycin Resist. E. faecium Corynebacterium amycolatum 10/22/21 Unknown Wound - Knee Anaerobic Culture - Preliminary Checking for anaerobes, further studies to follow. 10/22/21 15:39 Blood Culture (Wb) - Right Wrist Blood Culture - Final No growth in 5 days. 10/22/21 15:25 Blood Culture (Wb) - Left Hand Blood Culture - Final No growth in 5 days. 10/22/21 16:20 Urine, Catheterized Urine Culture - Final Culture exhibits no growth. Physical Exam Const alert, oriented x3, no apparent distress and well nourished Constitutional Narrative: Older, morbidly obese, white female lying in bed, appears comfortable and nontoxic, nursing at bedside General Appearance: cooperative, well kempt and well developed Orientation / Consciousness: awake, oriented to person, oriented to place and oriented to time Exam Limitations: no limitations Nutritional Appearance: morbidly obese HEENT normocephalic, head/scalp atraumatic, hearing grossly normal bilaterally, moist oral mucous membranes and oropharynx normal HEENT Narrative: Edentulous, Mallampati is 3, no thrush Head and Scalp: normocephalic Eyes Eyes Narrative: Neck nuchal rigidity and thyroid normal General: trachea midline Resp normal respiratory effort, no retractions, no use of accessory muscles and clear to auscultation bilaterally Resp Narrative: Distant secondary to body habitus Auscultation: Negative for crackles, rales, rhonchi or wheezes Cardio regular rate, regular rhythm, S1 normal heart sound, S2 normal heart sound, no rub, no gallops, no clicks and no JVD; Negative for no murmurs Cardio Narrative: Distant secondary to body habitus GI normal to inspection, nondistended, normoactive bowel sounds, soft to palpation, non-tender and non-distended GI Narrative: Scattered ecchymosis superficially on abdomen secondary to prophylactic Lovenox use Extremity no clubbing, cyanosis or edema Extremity Narrative: Left lower extremity wound dressed-dressing is currently clean and dry--> discussed wound with wound care nurse and her wound appears stable when compared to yesterday's pictures Peripheral Pulses: Yes pulses 2+ throughout Skin General Skin Exam: no breakdown Neuro oriented x3, moves all extremities and no focal motor deficits Sensorium / Orientation: awake and alert Speech: speech normal Psych Psych Narrative: Mood is depressed and affect flat Assessment & Plan Assessment/Plan (1) Abscess of left lower leg: (2) Pancytopenia: PLAN: Septic shock secondary to deep popliteal space wound infection -OR 10/26/2021 for debridement -Suspect blood seeding after surgical debridement with resultant septic shock -Patient remains on pressors but has been weaned to 2 mics per minute of Levophed -Midodrine has also been added -Continue antibiotics as ordered with oral ciprofloxacin and linezolid--> ID is following -Culture showed polymicrobial infection with 2 corynebacterium species/VRE/Morganella -We will need placement for wound care and therapy services at discharge -Case management has initiated this process--> patient to be discharged to [facility] when she is medically stable to do so Acute hypoxic respiratory failure -Patient was hypoxic on 4 L after surgery -Now requiring only 2 L nasal cannula with oxygen saturations 93 to 99% -O2 as able -Encourage out of bed -Encourage incentive spirometry -Trial of Lasix today MIGUE secondary to suspected ischemic ATN with postoperative hypotension -Patient with decreased urine output -12 L positive for her hospitalization as with her hypotension she got marked amount of fluid resuscitation both in the OR and following -Suspect this is delayed ATN as well as patient could potentially be off the Starling curve causing decreased renal blood flow -Patient was challenged with Lasix this morning -Repeat a.m. lab -Keep MAP greater than 65 -Wean pressors as able Hyperkalemia -Mild at 5.2 -Lasix given -Repeat BMP in a.m. -Needed dose of Kayexalate if this continues to rise Pancytopenia -Anemia and thrombocytopenia are baseline -Leukopenia has resolved -Hemoglobin and platelets are stable -Anemia and thrombocytopenia is related to known cirrhosis -Continue home iron supplementation Intertriginous candidiasis -Continue nystatin Hypertension -Continue to hold antihypertensives with soft blood pressures and pressor requirements -Need to consider discontinuing lisinopril altogether at discharge Morbid obesity -Recommend weight loss -Complicates treatment, prognosis, outcomes Depression/anxiety -Continue home Effexor -Continue home BuSpar DVT prophylaxis -Continue subcu heparin 3 times daily CODE STATUS -Full code Charges/Coding Visit Charges Inpatient E&M: 57450 Subs Hosp L2
[2021-10-28] MEDS: Furosemide 100 MG/10 ML Vial 80 MG IV (17:43)
[2021-10-29] VITALS (22 sets, daily range): BP systolic 87–125; BP diastolic 39–74; PULSE 65–120; RESP 14–20; TEMP 36.1–36.6; O2SAT 94–100
--- NOTE | 2021-10-29 | NURSING ---
Pt's heart rate on the monitor increased from 70s to 120s, BP borderline low. This RN went to check on pt, pt is sleeping calmly in bed. Asked pt if she feels okay, she states yes she's okay. Asked if pt was in pain, pt states she's just uncomfortable. PRN tylenol given with applesauce. Pt's heart rate came back down to 70s-80s. This RN received report from [facility] that pt's urine output has been low despite multiple doses of IV lasix. When further examining the pt, this RN noticed a strong odor coming from pt and the bedsheets were saturated under her left side; was unclear if the fluid was urine or drainage from pt's wounds. With the assist of fellow RN Lilliam, pt's prakash was irrigated and found to be leaking around site. More saline was added to catheter balloon, which seemed to resolve the issue. Bladder scan showed 36ml in bladder. Pt's wound also leaking through dressing. Pt bathed, gown and all bed linens changed, saturated dressing removed and new wet to dry dressing applied held in place with geovanna wraps. Pt repositioned in bed, all needs met at this time.
[2021-10-29] MEDS: Acetaminophen 325 MG Tablet 650 MG PO (00:08)
[2021-10-29 05:20] LABS: Absolute Lymphocyte Count 2.44 X10^3/uL (0.83-4.51); Absolute Neutrophil Count 7.6 X10^3/uL (2.0-7.7); Basophil# 0.06 X10^3/uL; Basophil% 0.5 % (0-1); Eosinophil# 0.22 X10^3/uL; Eosinophils% 1.9 % (0-5); Hematocrit 29.3 % (37-47); Hemoglobin 9.3 g/dL (12.0-15.0); Lymphocyte # 2.44 X10^3/ul (0.83-4.51); Lymphocyte % 21.6 % (19-41); Mean Corp Hgb Conc 31.7 g/dL (32-36); Mean Corpuscular Hgb 34.7 pg (27.0-32.0); Mean Corpuscular Volume 109.3 fL (81-99); NRBC Flagged by Analyzer 0 % (0-5); Neutrophil % 67.4 % (47-70); POSITIVE COUNT YES; POSITIVE MORPHOLOGY YES; Platelet Count 90 K/mm3 (150-450); RBC Distribution Width CV 16.9 % (11.6-14.6); RBC Distribution Width SD 67.3 fl (35.1-43.9); Red Blood Count 2.68 M/mm3 (4.2-5.4); White Blood Count 11.3 K/mm3 (4.4-11.0)
[2021-10-29 05:41] LABS: Anion Gap 2 (5-15); BUN 50 mg/dL (7-18); BUN/Creat Ratio 22.9 RATIO (10-20); Calcium,Total 9.9 mg/dL (8.5-10.1); Chloride 116 mmol/L (98-107); Creatinine, Serum 2.18 mg/dL (0.55-1.02); EST Glomerular Filtration Rate 23 mL/min (>60); Est Glom Filt Rate - Afr Amer 28 mL/min (>60); Estimated Creatinine Clearance 16.02 ml/min; Glucose 106 mg/dL (74-106); Sodium Level 142 mmol/L (136-145)
[2021-10-29 05:51] LABS: Differential Indicated SCAN CRITERIA MET
[2021-10-29 05:58] LABS: Differential Comment SCANNED
[2021-10-29 05:59] LABS: Anisocytosis 1+; Macrocytosis 1+; Platelet Estimate SLT DEC (ADEQ)
--- NOTE | 2021-10-29 06:40 | PN.CC_ITS ---
Assessment & Plan Assessment/Plan (1) Severe sepsis: (2) Pancytopenia: (3) Obesity: (4) Abscess of left lower leg: PLAN: RECOMMENDATIONS: 1. Increase activity as tolerated 2. Check FE urea. Consult renal 3. Antibiotics per infectious disease. Okay p.o. given high bioavailability 4. Defer additional diuretics to nephrology 5. Hold baseline antihypertensives 6. Possible AVAPS overnight if hypoxic 7. Okay to leave the intensive care unit from my perspective IMPRESSIONS: 1. Sepsis secondary to deep popliteal wound infection status post debridement postop day #2 Clinical suspicion for bacteremia following debridement of popliteal wound infection. Patient with polymicrobial infection including VRE. Patient in co ntact precautions. Patient has been placed on p.o. antibiotics, but is safe to swallow and these medications have high bioavailability. ID following. Patient failed additional fluid boluses, so was ultimately placed on pressors. Increased creatinine suggestive of endorgan damage. Patient has been off of pressors since yesterday and even tolerated diuretic therapy. Okay to leave the intensive care unit from my perspective 2. Pancytopenia Stable. Clinical suspicion secondary to reported cirrhosis. Patient does not have any indication for transfusion at this time. Patient is on baseline iron supplementation, so I do anticipate dark stools. 3. Morbid obesity/hypertension/intertriginous candidiasis/bipolar disorder/anxiety/reported sleep apnea Complicates care, management, recovery and prognosis. Patient states she does not wear BiPAP at baseline, but does have high risk factor for obstructive sleep apnea. Cannot exclude the need for BiPAP overnight. AVAPS would be a safe option if necessary. Hold antihypertensives for least another 24 hours. Okay to use topical nystatin. Will switch BuSpar to as needed as this could exacerbate problem #1. 4. Hyperkalemia/decreased urine output/acute kidney injury Patient with elevated creatinine and potassium this morning. Unclear at this point if patient has an element of decreased renal perfusion secondary to sepsis versus a component of overdistention from a cardiac perspective. Patient is significantly positive over the course of the hospitalization. We will check an FE urea. Patient has had Lasix recently, so an FeNa will not be accurate. Patient may require Bumex, but given contestant worsening, will consult nephrology and defer to them. Subjective Subjective Patient did well overnight. No acute issues were reported. Patient continues to require supplemental oxygen with sleep. Patient continues to report significant pain. Nursing has reported decreased urine output. There was some concern for leaking Griggs, so urine output may be an accurate, but patient has received 80 mg of Lasix overnight with little urine output. Objective Data Objective Data Vital Signs: Vital Signs Temp Pulse Resp BP Pulse Ox 36.1 C L 88 18 115/56 L 95 10/29/21 00:00 10/29/21 06:00 10/29/21 06:00 10/29/21 06:00 10/29/21 06:00 Oxygen Flow Rate (L/min) 2 Oxygen Delivery Method Nasal Cannula Weight: 153 kg Body Mass Index (BMI) 60.7 Intake & Output: Intake and Output for Last 24 Hours 10/27/21 10/28/21 10/29/21 23:59 23:59 23:59 Intake Total 379.87 / 398.67 660.62 / 660.62 Output Total 500 / 500 130 / 170 40 / 40 Balance -120.13 / -101.33 530.62 / 490.62 -40 / -40 Lab / Micro Data Result Diagrams: 10/29/21 05:12 10/29/21 05:12 Labs: Laboratory Results - last 24 hr 10/29/21 05:12: WBC 11.3 H, RBC 2.68 L, Hgb 9.3 L, Hct 29.3 L, MCV 109.3 H, MCH 34.7 H, MCHC 31.7 L, RDW Std Deviation 67.3 H, RDW Coeff of Pako 16.9 H, Plt Count 90 L, MPV 9.0, Immature Gran % (Auto) 0.600, Neut % (Auto) 67.4, Lymph % (Auto) 21.6, [place] % (Auto) 8.0, Eos % (Auto) 1.9, Baso % (Auto) 0.5, Absolute Neuts (auto) 7.6, Absolute Lymphs (auto) 2.44, Nucleated RBC % 0, Differential Comment SCANNED, Platelet Estimate SLT DEC, Anisocytosis 1+, Macrocytosis 1+ 10/29/21 05:12: Sodium 142, Potassium 5.0, Chloride 116 H, Carbon Dioxide 24.0, Anion Gap 2 L, BUN 50 H, Creatinine 2.18 H, Estim Creat Clear Calc 16.02, Est GFR (MDRD) Af Amer 28 L, Est GFR (MDRD) Non-Af 23 L, BUN/Creatinine Ratio 22.9 H , Glucose 106, Calcium 9.9 Micro: Microbiology 10/26/21 Unknown Tissue - Leg, Left Gram Stain - Final 10/26/21 Unknown Tissue - Leg, Left Tissue Culture - Preliminary Gram negative tello GPC Poss Enterococcus sp Gram Positive Cocci 10/22/21 Unknown Wound - Knee Gram Stain - Final 10/22/21 Unknown Wound - Knee Wound Culture - Final Morganella morganii sp morgani Corynebacterium striatum Vancomycin Resist. E. faecium Corynebacterium amycolatum 10/22/21 Unknown Wound - Knee Anaerobic Culture - Preliminary Checking for anaerobes, further studies to follow. 10/22/21 15:39 Blood Culture (Wb) - Right Wrist Blood Culture - Final No growth in 5 days. 10/22/21 15:25 Blood Culture (Wb) - Left Hand Blood Culture - Final No growth in 5 days. 10/22/21 16:20 Urine, Catheterized Urine Culture - Final Culture exhibits no growth. Physical Exam Const alert, oriented x3, no apparent distress and well nourished Constitutional Narrative: Appears older than stated age. Exam Limitations: no limitations Nutritional Appearance: morbidly obese HEENT head/scalp atraumatic, moist oral mucous membranes and oropharynx normal HEENT Narrative: Edentulous, Mallampati is 3, no thrush Head and Scalp: normocephalic Chest inspection of chest normal Chest: symmetrical chest wall rise; Negative for crepitus Resp normal respiratory effort, no retractions, no use of accessory muscles and clear to auscultation bilaterally Resp Narrative: Distant secondary to body habitus Auscultation: Negative for rales, rhonchi or wheezes Cardio regular rhythm, S1 normal heart sound, S2 normal heart sound, no rub, no gallops, no clicks and no JVD; Negative for no murmurs Cardio Narrative: 4 out of 6 systolic murmur-loudest at left upper sternal border. EKG shows sinus tachycardia. Rate: tachycardic GI normal to inspection, nondistended, normoactive bowel sounds, soft to palpation, non-tender and non-distended Extremity Extremity Narrative: Left lower extremity is wrapped in an Tommie bandage. General Extremity: edema bilateral (4+ bilateral feet) lower extremity; Negative for clubbing or cyanosis Peripheral Pulses: Yes pulses 2+ throughout Skin Skin Narrative: Lower extremity wound is wrapped in bandages clean and dry Neuro oriented x3, CN's II-XII intact bilaterally, moves all extremities and no focal motor deficits Neuro Narrative: Marked generalized weakness but no specific focal deficit Sensorium / Orientation: awake and alert Speech: speech normal Psych Psych Narrative: Affect is flat and mood seems depressed Mood & Affect: depressed Charges/Coding Visit Charges Inpatient E&M: 98484 Subs Hosp L3
[2021-10-29] MEDS: Heparin Injection (Vial) 5,000 UNIT/ML VIAL 5000 UNIT SC ×3 (06:49→23:53)
--- NOTE | 2021-10-29 06:50 | US_ITS ---
EXAM: US renal. HISTORY: Acute kidney injury TECHNIQUE: US Kidney(s) complete (eg, kidneys and bladder) COMPARISON: None. LIMITATIONS: None. RIGHT KIDNEY Size: Echogenicity: Normal. Parenchymal thickness: Normal. Hydronephrosis: None. Calculi: None. Cysts/masses: 2 cysts, 2.8 cm x 3.6 cm x 2.7 cm and 3 cm x 2.7 cm x 2.5 cm. LEFT KIDNEY Size: 12.2 cm x 4.4 cm x 4.5 cm Echogenicity: Normal. Parenchymal thickness: Normal. Hydronephrosis: None. Calculi: None. Cysts/masses: None. BLADDER: Empty with Griggs catheter, images not provided. OTHER: Mild-moderate perihepatic ascites and mildly small echogenic appearance of the liver.. US/Kidney and Bladder IMPRESSION: No hydronephrosis. Collapsed urinary bladder with Griggs catheter. 2 right renal cysts. Ascites. Electronically Signed: Lyla Winn MD at 20:12 EDT ,
[2021-10-29] MEDS: Venlafaxine XR 75 MG Capsule PO (08:30)
[2021-10-29] MEDS: Juven (unflavored) Packet 1 PACKET PO ×2 (09:01→16:45)
[2021-10-29] MEDS: Ascorbic Acid 500 MG Tablet 250 MG PO (09:02)
[2021-10-29] MEDS: Midodrine HCl 5 MG Tablet 10 MG PO ×3 (09:02→16:44)
[2021-10-29] MEDS: Ciprofloxacin 500 MG Tablet PO (09:02)
[2021-10-29] MEDS: Linezolid 600 MG Tablet PO ×2 (09:02→22:57)
--- NOTE | 2021-10-29 09:54 | PCM.PN.ID ---
Physical Exam Narrative In icu, now off pressor, no fever Const Constitutional Narrative: lethargic Resp normal air movement and clear to auscultation bilaterally Cardio regular rate and regular rhythm GI soft to palpation, non-tender and non-distended Skin Skin Narrative: LLE wrapped ID ID: Route of nutrition/ use of supplements: [] Nutritional Intake: [] IV Site: [] Griggs Catheter: [] Assessment & Plan Assessment/Plan (1) Leg wound, left: PLAN: Wound cx with VRE, diphtheroids x2, and morganella. 10/26 changed vanc/josefina to linezolid/cipro. Taken to OR 10/[address] Agee for I&D complicated by post-op hypotension. Now in icu, improving BP and now off levophed. ? new pneumonia, will cont abx. Will add flagyl given growth of anaerobes. Will follow
[2021-10-29 10:04] LABS: Mucous, Urine 0 SEEN /hpf (<or=2+)
[2021-10-29 10:07] LABS: Color, Urine Yellow (Yellow); Glucose, Dipstick Normal (Normal); Ketone-Dipstick Negative (Negative); Leukocyte Esterase-Dipstick 500 /ul (Negative); Nitrite-Dipstick Negative (Negative); Occult Blood-Urine 250 /ul (Negative); Protein-Dipstick 100 mg/dl (Negative); Specific Gravity, Urine 1.015 (1.002-1.030); Urine Bilirubin Dipstick Negative (Negative); Urine Clarity Cloudy (Clear); Urine Urobilinogen Normal (Normal)
[2021-10-29 10:21] LABS: Urine Sodium 34 mmol/L (Not Establ.)
[2021-10-29 10:22] LABS: Bacteria 1+ /hpf (None Seen); Red Blood Cells-Urine 0-5 SEEN /hpf (0-5); Squamous Epithelial Cells - UA 0-5 SEEN /hpf (5-10); White Blood Cells 10-25 SEEN /hpf (0-5); Yeast-Urine 2+ /hpf (None Seen)
[2021-10-29 10:25] LABS: Urea Nitrogen, Urine 85 mg/dL (NO RANGE EST.)
--- NOTE | 2021-10-29 10:46 | PCM.CONS.R ---
Assessment & Plan Assessment/Plan (1) MIGUE (acute kidney injury): PLAN: Baseline creatinine was normal, she was at baseline as of 2 days ago. Creatinine has increased over the last 2 days. She was in septic shock and required admission to ICU. Currently she is off pressors. Blood pressure values are acceptable. No contrast agents. She did receive vancomycin with borderline levels but currently she is off vancomycin and is on Zyvox. Most likely went into ischemic ATN due to septic shock. Did not respond to Lasix. Will likely run its course. Overall she has significant edema which could be related to low albumin, suspicion of cirrhosis. Breathing looks comfortable. No need to give fluids for today. May try albumin if she has no urine output in the next 1 or 2 days. HPI Consult Data Date of Consult: 10/29/21 HPI Narrative HPI Narrative: [place] NAM, is a 76 F who presents to the hospital with infection of her popliteal fossa. Nephrology consulted for acute renal failure. Initially presented with an open wound in the popliteal fossa, over the last few days went into septic shock requiring pressors. Cultures growing VRE. She was initially on vancomycin but with updated cultures, she is now on Zyvox. With respect to kidney function, her creatinine is normal as recent as 2 days ago. Creatinine has increased over the last 2 days. Overall she has significant edema even before admission. Presumably this is related to low albumin which is at 1.3. There is also a suspicion of cirrhosis as seen on imaging. Patient is currently alert, awake. She is asking for water. She has got a Prakash catheter with minimal urine output. She has received Lasix IV yesterday with minimal response. She is currently off pressors. Review of systems is negative except above [facility] Medical History (Updated 10/29/21 @ 10:[address] Santos Wahl MD) Abscess of left lower leg Bipolar disorder Blisters of multiple sites Blunt trauma of face Breast cancer Cellulitis of leg, left Cholecystectomy planned Chronic pain Cirrhosis Closed head injury Debility GERD (gastroesophageal reflux disease) Gout Hypertension Kidney stones Lupus Migraines Morbidly obese Non-smoker Obesity Open wound of left lower leg with complication Osteoporosis Pulmonary embolism Rheumatoid arthritis Right rib fracture Sinus pressure Skin necrosis Sleep apnea Thrombocytopenia Home Medications cholecalciferol (vitamin D3) [Vitamin D3] 1,000 unit PO DAILY 04/15/17 [History Last Taken 10/05/21] lisinopril 20 mg PO Q3D 04/15/17 [History Last Taken 10/04/21] venlafaxine 75 mg PO DAILY 04/15/17 [History Last Taken Unknown] ascorbic acid (vitamin C) 250 mg PO DAILY 09/03/20 [History Last Taken 10/04/21] ferrous sulfate 325 mg PO Q2D 09/03/20 [History Last Taken 10/04/21] bacitracin 1 applic TOPICAL TID 10/05/21 [History Last Taken 10/04/21] nystatin 1 applic TOPICAL BIDCM PRN 10/05/21 [History Last Taken 10/04/21] acetaminophen [Tylenol] 650 mg PO Q6H PRN PRN #0 tab 10/07/21 [Rx Last Taken Unknown] buspirone 5 mg PO TID 10/22/21 [History Last Taken Unknown] cefadroxil 500 mg PO DAILY 10/22/21 [History Last Taken Unknown] collagenase clostridium histo. [Santyl] 1 applic TOPICAL TID 10/22/21 [History Last Taken Unknown] doxycycline hyclate 100 mg PO BID 10/22/21 [History Last Taken Unknown] tramadol 50 mg PO Q6H PRN 10/22/21 [History Last Taken Unknown] Allergy/AdvReac Type Severity Reaction Status Date / Time erythromycin base Allergy Rash Verified 10/22/21 16:41 Fish Containing Products Allergy Swelling Verified 10/22/21 16:41 iodine Allergy Rash Verified 10/22/21 16:41 Penicillins [PCN] Allergy Rash Verified 10/22/21 16:41 Sulfa (Sulfonamide Allergy Rash Verified 10/22/21 16:41 Antibiotics) Surgical History H/O hernia repair H/O: hysterectomy History of appendectomy History of cholecystectomy History of tonsillectomy Social History Smoking Status: Never smoker Physical Exam Narrative Alert awake no obvious distress no pallor no icterus no JVD s1s2 no murmurs lungs clear abdomen soft no organomegaly ++ edema no cyanosis prakash + Left popliteal fossa bandaged Lab / Micro Data Result Diagrams: 10/29/21 05:12 10/29/21 05:12 Labs: Laboratory Results - last 24 hr 10/29/21 05:12: WBC 11.3 H, RBC 2.68 L, Hgb 9.3 L, Hct 29.3 L, MCV 109.3 H, MCH 34.7 H, MCHC 31.7 L, RDW Std Deviation 67.3 H, RDW Coeff of Pako 16.9 H, Plt Count 90 L, MPV 9.0, Immature Gran % (Auto) 0.600, Neut % (Auto) 67.4, Lymph % (Auto) 21.6, [place] % (Auto) 8.0, Eos % (Auto) 1.9, Baso % (Auto) 0.5, Absolute Neuts (auto) 7.6, Absolute Lymphs (auto) 2.44, Nucleated RBC % 0, Differential Comment SCANNED, Platelet Estimate SLT DEC, Anisocytosis 1+, Macrocytosis 1+ 10/29/21 05:12: Sodium 142, Potassium 5.0, Chloride 116 H, Carbon Dioxide 24.0, Anion Gap 2 L, BUN 50 H, Creatinine 2.18 H, Estim Creat Clear Calc 16.02, Est GFR (MDRD) Af Amer 28 L, Est GFR (MDRD) Non-Af 23 L, BUN/Creatinine Ratio 22.9 H, Glucose 106, Calcium 9.9 10/29/21 10:00: Urine Color Yellow, Urine Clarity Cloudy, Urine pH 5.0, Ur Specific [place] 1.015, Urine Protein 100 H, Urine Glucose (UA) Normal, Urine Ketones Negative, Urine Occult Blood 250 H, Urine Nitrite Negative, Urine Bilirubin Negative, Urine Urobilinogen Normal, Ur Leukocyte Esterase 500 H, Urine RBC 0-5 SEEN, Urine WBC 10-25 SEEN, Ur Squamous Epith Cells 0-5 SEEN, Urine Bacteria 1+, Urine Mucus 0 SEEN, Urine Yeast 2+ 10/29/21 10:00: Ur Random Sodium 34 10/29/21 10:00: Urine Creatinine 49.30, Urine Urea Nitrogen 85 Micro: Microbiology 10/26/21 Unknown Tissue - Leg, Left Gram Stain - Final 10/26/21 Unknown Tissue - Leg, Left Tissue Culture - Preliminary Gram negative tello Enterococcus faecalis Corynebacterium striatum 10/26/21 Unknown Tissue - Leg, Left Anaerobic Culture - Final No anaerobic bacteria isolated. 10/22/21 Unknown Wound - Knee Gram Stain - Final 10/22/21 Unknown Wound - Knee Wound Culture - Final Morganella morganii sp morgani Corynebacterium striatum Vancomycin Resist. E. faecium Corynebacterium amycolatum 10/22/21 Unknown Wound - Knee Anaerobic Culture - Final Anaerobic cocci Bacteroides ovatus Clostridium clostridioforme 10/22/21 15:39 Blood Culture (Wb) - Right Wrist Blood Culture - Final No growth in 5 days. 10/22/21 15:25 Blood Culture (Wb) - Left Hand Blood Culture - Final No growth in 5 days.
--- NOTE | 2021-10-29 12:36 | PCM.PN.HOSP ---
Subjective Subjective Patient has been able to come off pressors. She has no current complaints other than her leg pain which she states is overall fairly well managed with the pain medication she is on. No significant overnight issues. Okay to transfer to PCU. Objective Data Objective Data Vital Signs: Vital Signs Temp Pulse Resp BP Pulse Ox 96.9 F L 88 18 115/56 L 95 10/29/21 00:00 10/29/21 06:00 10/29/21 06:00 10/29/21 06:00 10/29/21 06:00 Oxygen Flow Rate (L/min) 2 Oxygen Delivery Method Nasal Cannula Weight: 153 kg Body Mass Index (BMI) 60.7 Intake & Output: Intake and Output for Last 24 Hours 10/27/21 10/28/21 10/29/21 23:59 23:59 23:59 Intake Total 379.87 / 398.67 660.62 / 660.62 Output Total 500 / 500 130 / 170 40 / 40 Balance -120.13 / -101.33 530.62 / 490.62 -40 / -40 Lab / Micro Data Result Diagrams: 10/29/21 05:12 10/29/21 05:12 Labs: Laboratory Results - last 24 hr 10/29/21 05:12: WBC 11.3 H, RBC 2.68 L, Hgb 9.3 L, Hct 29.3 L, MCV 109.3 H, MCH 34.7 H, MCHC 31.7 L, RDW Std Deviation 67.3 H, RDW Coeff of Pako 16.9 H, Plt Count 90 L, MPV 9.0, Immature Gran % (Auto) 0.600, Neut % (Auto) 67.4, Lymph % (Auto) 21.6, [place] % (Auto) 8.0, Eos % (Auto) 1.9, Baso % (Auto) 0.5, Absolute Neuts (auto) 7.6, Absolute Lymphs (auto) 2.44, Nucleated RBC % 0, Differential Comment SCANNED, Platelet Estimate SLT DEC, Anisocytosis 1+, Macrocytosis 1+ 10/29/21 05:12: Sodium 142, Potassium 5.0, Chloride 116 H, Carbon Dioxide 24.0, Anion Gap 2 L, BUN 50 H, Creatinine 2.18 H, Estim Creat Clear Calc 16.02, Est GFR (MDRD) Af Amer 28 L, Est GFR (MDRD) Non-Af 23 L, BUN/Creatinine Ratio 22.9 H, Glucose 106, Calcium 9.9 10/29/21 10:00: Urine Color Yellow, Urine Clarity Cloudy, Urine pH 5.0, Ur Specific [place] 1.015, Urine Protein 100 H, Urine Glucose (UA) Normal, Urine Ketones Negative, Urine Occult Blood 250 H, Urine Nitrite Negative, Urine Bilirubin Negative, Urine Urobilinogen Normal, Ur Leukocyte Esterase 500 H, Urine RBC 0-5 SEEN, Urine WBC 10-25 SEEN, Ur Squamous Epith Cells 0-5 SEEN, Urine Bacteria 1+, Urine Mucus 0 SEEN, Urine Yeast 2+ 10/29/21 10:00: Ur Random Sodium 34 10/29/21 10:00: Urine Creatinine 49.30, Urine Urea Nitrogen 85 Micro: Microbiology 10/26/21 Unknown Tissue - Leg, Left Gram Stain - Final 10/26/21 Unknown Tissue - Leg, Left Tissue Culture - Preliminary Gram negative tello Enterococcus faecalis Corynebacterium striatum 10/26/21 Unknown Tissue - Leg, Left Anaerobic Culture - Final No anaerobic bacteria isolated. 10/22/21 Unknown Wound - Knee Gram Stain - Final 10/22/21 Unknown Wound - Knee Wound Culture - Final Morganella morganii sp morgani Corynebacterium striatum Vancomycin Resist. E. faecium Corynebacterium amycolatum 10/22/21 Unknown Wound - Knee Anaerobic Culture - Final Anaerobic cocci Bacteroides ovatus Clostridium clostridioforme 10/22/21 15:39 Blood Culture (Wb) - Right Wrist Blood Culture - Final No growth in 5 days. 10/22/21 15:25 Blood Culture (Wb) - Left Hand Blood Culture - Final No growth in 5 days. 10/22/21 16:20 Urine, Catheterized Urine Culture - Final Culture exhibits no growth. Physical Exam Const alert, oriented x3, no apparent distress and well nourished Constitutional Narrative: Older, morbidly obese, white female lying in bed sleeping but awakens easily to name, appears comfortable and nontoxic, nursing at bedside General Appearance: cooperative, well kempt and well developed Orientation / Consciousness: awake, oriented to person, oriented to place and oriented to time Exam Limitations: no limitations Nutritional Appearance: morbidly obese HEENT normocephalic, head/scalp atraumatic, hearing grossly normal bilaterally, moist oral mucous membranes and oropharynx normal Head and Scalp: normocephalic Eyes Eyes Narrative: Neck nuchal rigidity and thyroid normal General: trachea midline Resp normal respiratory effort, no retractions, no use of accessory muscles and clear to auscultation bilaterally Resp Narrative: Distant secondary to body habitus Auscultation: Negative for crackles, rales, rhonchi or wheezes Cardio regular rate, regular rhythm, S1 normal heart sound, S2 normal heart sound, no rub, no gallops, no clicks and no JVD; Negative for no murmurs Cardio Narrative: Distant secondary to body habitus, 3 out of 6 systolic murmur loudest at left lower sternal border GI normal to inspection, nondistended, normoactive bowel sounds, soft to palpation, non-tender and non-distended GI Narrative: Scattered ecchymosis superficially on abdomen secondary to prophylactic Lovenox use Extremity no clubbing, cyanosis or edema Extremity Narrative: Left lower extremity wound dressed-dressing is currently clean and dry Peripheral Pulses: Yes pulses 2+ throughout Skin General Skin Exam: no breakdown Neuro oriented x3, moves all extremities and no focal motor deficits Sensorium / Orientation: awake and alert Speech: speech normal Psych Psych Narrative: Mood is depressed and affect flat Assessment & Plan Assessment/Plan (1) Abscess of left lower leg: (2) Pancytopenia: PLAN: Septic shock secondary to deep popliteal space wound infection -OR 10/26/2021 for debridement -Suspect blood seeding after surgical debridement with resultant septic shock -Levophed has been discontinued -Continue midodrine -Continue antibiotics as ordered with oral ciprofloxacin and linezolid--> ID is following -Culture showed polymicrobial infection with 2 corynebacterium species/VRE/Morganella -We will need placement for wound care and therapy services at discharge -Case management has initiated this process--> patient to be discharged to [facility] when she is medically stable to do so -Transfer to PCU Acute hypoxic respiratory failure -Patient was hypoxic on 4 L after surgery -Remains on 2 L nasal cannula with oxygen saturations 95 to 98% -Wean O2 as able -Encourage out of bed -Encourage incentive spirometry -Suspect patient may need 2 L at night while she is sleeping as I have a high suspicion she probably has obstructive sleep apnea -Wean daytime oxygen as able MIGUE secondary to suspected ischemic ATN with postoperative hypotension -Patient with decreased urine output - patient is 16.7 L positive for hospitalization -No function worsened in the last 24 hours despite Lasix challenge -Suspect this is ischemic ATN with postoperative hypotension -Check Vane/Fe urea -Retroperitoneal ultrasound pending -Nephrology consult Hyperkalemia -Resolved -Potassium is 5.0 this morning Anemia and thrombocytopenia -Anemia and thrombocytopenia are baseline -Hemoglobin and platelets are stable -Anemia and thrombocytopenia is related to known cirrhosis -Continue home iron supplementation Intertriginous candidiasis -Continue nystatin Hypertension -Continue to hold antihypertensives with soft blood pressures and pressor requirements -Need to consider discontinuing lisinopril altogether at discharge Morbid obesity -Recommend weight loss -Complicates treatment, prognosis, outcomes Depression/anxiety -Continue home Effexor -Continue home BuSpar DVT prophylaxis -Continue subcu heparin 3 times daily CODE STATUS -Full code Charges/Coding Visit Charges Inpatient E&M: 44023 Subs Hosp L2
[2021-10-29] MEDS: Menthol/Lanolin/Calamine/Znox 113 GM Tube 1 APPLIC TOPICAL ×2 (12:46→22:45)
[2021-10-29] MEDS: metroNIDAZOLE 500 MG Tablet PO ×3 (12:46→22:57)
[2021-10-29] MEDS: CHLORHEXIDINE GLUC 2% CLOTH 1 EACH TOWELETTE TOPICAL (12:47)
[2021-10-29] MEDS: DAKIN'S SOL HALF STRENGTH (=0.25%) 1 APPLIC TOPICAL (14:16)
[2021-10-29] MEDS: 0.9% Saline Lock 10 ML Syringe IV (14:53)
[2021-10-29] MEDS: oxyCODONE 5 MG Tablet 10 MG PO (16:22)
[2021-10-29] MEDS: Nystatin Powder 15gm Bottle 1 APPLIC TOPICAL (22:43)
[2021-10-30] VITALS (11 sets, daily range): BP systolic 111–120; BP diastolic 47–70; PULSE 76–124; RESP 18; TEMP 35.8–36.6; O2SAT 93–98
[2021-10-30] MEDS: Heparin Injection (Vial) 5,000 UNIT/ML VIAL 5000 UNIT SC ×2 (06:50→14:22)
[2021-10-30] MEDS: metroNIDAZOLE 500 MG Tablet PO (06:50)
[2021-10-30 07:15] LABS: Absolute Lymphocyte Count 2.12 X10^3/uL (0.83-4.51); Absolute Neutrophil Count 11.4 X10^3/uL (2.0-7.7); Basophil# 0.05 X10^3/uL; Basophil% 0.3 % (0-1); Eosinophil# 0.04 X10^3/uL; Eosinophils% 0.3 % (0-5); Hemoglobin 10.1 g/dL (12.0-15.0); Lymphocyte # 2.12 X10^3/ul (0.83-4.51); Lymphocyte % 14.7 % (19-41); Mean Corp Hgb Conc 31.6 g/dL (32-36); Mean Corpuscular Hgb 34.2 pg (27.0-32.0); Mean Corpuscular Volume 108.5 fL (81-99); Mean Platelet Vol. 8.9 fl (6.2-12.0); Monocyte# 0.79 X10^3/uL; Monocyte% 5.5 % (0-10); NRBC Flagged by Analyzer 0 % (0-5); Neutrophil # 11.37 X10^3/uL (2.7-7.7); Neutrophil % 78.5 % (47-70); POSITIVE COUNT YES; POSITIVE MORPHOLOGY YES; Platelet Count 84 K/mm3 (150-450); RBC Distribution Width CV 17.2 % (11.6-14.6); Red Blood Count 2.95 M/mm3 (4.2-5.4); White Blood Count 14.5 K/mm3 (4.4-11.0)
[2021-10-30 07:17] LABS: Differential Indicated SCAN CRITERIA MET
[2021-10-30 07:35] LABS: Anion Gap 6 (5-15); BUN 66 mg/dL (7-18); BUN/Creat Ratio 22.4 RATIO (10-20); Calcium,Total 10.7 mg/dL (8.5-10.1); Chloride 115 mmol/L (98-107); Creatinine, Serum 2.94 mg/dL (0.55-1.02); EST Glomerular Filtration Rate 17 mL/min (>60); Est Glom Filt Rate - Afr Amer 20 mL/min (>60); Estimated Creatinine Clearance 11.88 ml/min; Glucose 103 mg/dL (74-106); Potassium 5.3 mmol/L (3.5-5.1); Sodium Level 140 mmol/L (136-145)
[2021-10-30 07:37] LABS: Anisocytosis 1+; Platelet Estimate SLT DEC (ADEQ)
--- NOTE | 2021-10-30 08:43 | PCM.PN.INT ---
Assessment & Plan Assessment/Plan (1) Severe sepsis: (2) Pancytopenia: (3) Obesity: (4) Abscess of left lower leg: PLAN: RECOMMENDATIONS: 1. Increase activity as tolerated 2. Volume status per renal 3. Antibiotics per infectious disease. Okay p.o. given high bioavailability 4. Continue to hold antihypertensives 5. Follow mental status. Low threshold for ABG 6. Ideally, patient would be using AVAPS with sleep IMPRESSIONS: 1. Sepsis secondary to deep popliteal wound infection status post debridement postop day #2 Clinical suspicion for bacteremia following debridement of popliteal wound infection. Patient with polymicrobial infection including VRE. Patient in contact precautions. Patient has been placed on p.o. antibiotics, but is safe to swallow and these medications have high bioavailability. ID following. Patient failed additional fluid boluses, so was ultimately placed on pressors. Increased creatinine suggestive of endorgan damage. Patient has remained off of pressors, but still requiring midodrine. Patient does have cirrhotic changes on imaging, so blood pressures may be marginal at baseline 2. Pancytopenia Stable. Clinical suspicion secondary to reported cirrhosis. Patient does not have any indication for transfusion at this time. Patient is on baseline iron supplementation, so I do anticipate dark stools. 3. Morbid obesity/hypertension/intertriginous candidiasis/bipolar disorder/anxiety/reported sleep apnea Complicates care, management, recovery and prognosis. Patient states she does not wear BiPAP at baseline, but does have high risk factor for obstructive sleep apnea. Cannot exclude the need for BiPAP overnight. AVAPS would be a safe option if necessary. Continue to hold antihypertensives while on midodrine. Okay to use topical nystatin. Will switch BuSpar to as needed as this could exacerbate problem #1. 4. Hyperkalemia/decreased urine output/acute kidney injury Patient with elevated creatinine and potassium this morning. Unclear at this point if patient has an element of decreased renal perfusion secondary to sepsis versus a component of overdistention from a cardiac perspective. Patient is significantly positive over the course of the hospitalization. Fractional excretion of urea is subjective of prerenal etiology. Patient is total body volume overloaded with intravascular depletion. Decreased clearance will increase risk for respiratory failure from retention and development of metabolic acidosis. Subjective Subjective Patient opens her eyes and interacts to voice, but rapidly falls back asleep. Patient is reporting pain. No cough or chills reported. Objective Data Objective Data Vital Signs: Vital Signs Temp Pulse Resp BP Pulse Ox 36.6 C 124 H 18 120/70 95 10/30/21 06:22 10/30/21 06:22 10/30/21 06:22 10/30/21 06:22 10/30/21 08:03 Oxygen Flow Rate (L/min) 2 Oxygen Delivery Method Room Air Weight: 154.7 kg Body Mass Index (BMI) 60.7 Intake & Output: Intake and Output for Last 24 Hours 10/28/21 10/29/21 10/30/21 23:59 23:59 23:59 Intake Total 660.62 / 660.62 200 / 200 0 / 0 Output Total 130 / 170 150 / 150 50 / 50 Balance 530.62 / 490.62 50 / 50 -50 / -50 Lab / Micro Data Result Diagrams: 10/30/21 06:15 10/30/21 06:15 Labs: Laboratory Results - last 24 hr 10/29/21 10:00: Urine Color Yellow, Urine Clarity Cloudy, Urine pH 5.0, Ur Specific [place] 1.015, Urine Protein 100 H, Urine Glucose (UA) Normal, Urine Ketones Negative, Urine Occult Blood 250 H, Urine Nitrite Negative, Urine Bilirubin Negative, Urine Urobilinogen Normal, Ur Leukocyte Esterase 500 H, Urine RBC 0-5 SEEN, Urine WBC 10-25 SEEN, Ur Squamous Epith Cells 0-5 SEEN, Urine Bacteria 1+, Urine Mucus 0 SEEN, Urine Yeast 2+ 10/29/21 10:00: Ur Random Sodium 34 10/29/21 10:00: Urine Creatinine 49.30, Urine Urea Nitrogen 85 10/30/21 06:15: WBC 14.5 H, RBC 2.95 L, Hgb 10.1 L, Hct 32.0 L, MCV 108.5 H, MCH 34.2 H, MCHC 31.6 L, RDW Std Deviation 67.0 H, RDW Coeff of Pako 17.2 H, Plt Count 84 L, MPV 8.9, Immature Gran % (Auto) 0.700, Neut % (Auto) 78.5 H, Lymph % (Auto) 14.7 L, [place] % (Auto) 5.5, Eos % (Auto) 0.3, Baso % (Auto) 0.3, Absolute Neuts (auto) 11.4 H, Absolute Lymphs (auto) 2.12, Nucleated RBC % 0, Platelet Estimate SLT DEC, Anisocytosis 1+ 10/30/21 06:15: Sodium 140, Potassium 5.3 H, Chloride 115 H, Carbon Dioxide 19.0 L, Anion Gap 6, BUN 66 H, Creatinine 2.94 H, Estim Creat Clear Calc 11.88, Est GFR (MDRD) Af Amer 20 L, Est GFR (MDRD) Non-Af 17 L, BUN/Creatinine Ratio 22.4 H, Glucose 103, Calcium 10.7 H Micro: Microbiology 10/26/21 Unknown Tissue - Leg, Left Gram Stain - Final 10/26/21 Unknown Tissue - Leg, Left Tissue Culture - Preliminary Acinetobacter baumannii Enterococcus faecalis Corynebacterium striatum 10/26/21 Unknown Tissue - Leg, Left Anaerobic Culture - Final No anaerobic bacteria isolated. 10/22/21 Unknown Wound - Knee Gram Stain - Final 10/22/21 Unknown Wound - Knee Wound Culture - Final Morganella morganii sp morgani Corynebacterium striatum Vancomycin Resist. E. faecium Corynebacterium amycolatum 10/22/21 Unknown Wound - Knee Anaerobic Culture - Final Anaerobic cocci Bacteroides ovatus Clostridium clostridioforme 10/22/21 15:39 Blood Culture (Wb) - Right Wrist Blood Culture - Final No growth in 5 days. 10/22/21 15:25 Blood Culture (Wb) - Left Hand Blood Culture - Final No growth in 5 days. 10/22/21 16:20 Urine, Catheterized Urine Culture - Final Culture exhibits no growth. Radiography Diagnostic Testing: Radiology Impression Renal Ultrasound 10/29/21 06:50 IMPRESSION: No hydronephrosis. Collapsed urinary bladder with Griggs catheter. 2 right renal cysts. Ascites. Electronically Signed: Lyla Winn MD at 20:12 EDT , Physical Exam Const alert, oriented x3, no apparent distress and well nourished Constitutional Narrative: Appears older than stated age. RASS -1. Falls asleep readily without stimulation Exam Limitations: no limitations Nutritional Appearance: morbidly obese HEENT head/scalp atraumatic, moist oral mucous membranes and oropharynx normal HEENT Narrative: Edentulous, Mallampati is 3, no thrush Head and Scalp: normocephalic Chest inspection of chest normal Chest: symmetrical chest wall rise; Negative for crepitus Resp normal respiratory effort, no retractions, no use of accessory muscles and clear to auscultation bilaterally Resp Narrative: Distant secondary to body habitus Auscultation: Negative for rales, rhonchi or wheezes Cardio regular rhythm, S1 normal heart sound, S2 normal heart sound, no rub, no gallops, no clicks and no JVD; Negative for no murmurs Cardio Narrative: 4 out of 6 systolic murmur-loudest at left upper sternal border. EKG shows sinus tachycardia. Rate: tachycardic GI normal to inspection, nondistended, normoactive bowel sounds, soft to palpation, non-tender and non-distended Extremity Extremity Narrative: Left lower extremity is wrapped in an [place]mie bandage. General Extremity: edema bilateral (4+ bilateral feet) lower extremity; Negative for clubbing or cyanosis Peripheral Pulses: Yes pulses 2+ throughout Skin Skin Narrative: Lower extremity wound is wrapped in bandages clean and dry Neuro oriented x3, CN's II-XII intact bilaterally, moves all extremities and no focal motor deficits Neuro Narrative: Marked generalized weakness but no specific focal deficit Sensorium / Orientation: awake and alert Speech: speech normal Psych Psych Narrative: Affect is flat and mood seems depressed Mood & Affect: depressed Charges/Coding Visit Charges Inpatient E&M: 32891 Subs Hosp L3
--- NOTE | 2021-10-30 09:38 | PN.SURG_ITS ---
Subjective Subjective Postop #4 Patient is resting quietly in bed. She states her pain is controlled right now. She does have increased pain when turning and doing dressing change. Objective Data Objective Data Vital Signs: Vital Signs Temp Pulse Resp BP Pulse Ox 97.8 F 78 18 120/70 95 10/30/21 06:22 10/30/21 07:56 10/30/21 06:22 10/30/21 06:22 10/30/21 08:03 Oxygen Flow Rate (L/min) 2 Oxygen Delivery Method Room Air Weight: 341 lb 0.882 oz Body Mass Index (BMI) 60.7 Intake & Output: Intake and Output for Last 24 Hours 10/28/21 10/29/21 10/30/21 23:59 23:59 23:59 Intake Total 660.62 / 660.62 200 / 200 0 / 0 Output Total 130 / 170 150 / 150 50 / 50 Balance 530.62 / 490.62 50 / 50 -50 / -50 Lab / Micro Data Result Diagrams: 10/30/21 06:15 10/30/21 06:15 Labs: Laboratory Results - last 24 hr 10/29/21 10:00: Urine Color Yellow, Urine Clarity Cloudy, Urine pH 5.0, Ur Specific [place] 1.015, Urine Protein 100 H, Urine Glucose (UA) Normal, Urine Ketones Negative, Urine Occult Blood 250 H, Urine Nitrite Negative, Urine Bilirubin Negative, Urine Urobilinogen Normal, Ur Leukocyte Esterase 500 H, Urine RBC 0-5 SEEN, Urine WBC 10-25 SEEN, Ur Squamous Epith Cells 0-5 SEEN, Urine Bacteria 1+, Urine Mucus 0 SEEN, Urine Yeast 2+ 10/29/21 10:00: Ur Random Sodium 34 10/29/21 10:00: Urine Creatinine 49.30, Urine Urea Nitrogen 85 10/30/21 06:15: WBC 14.5 H, RBC 2.95 L, Hgb 10.1 L, Hct 32.0 L, MCV 108.5 H, MCH 34.2 H, MCHC 31.6 L, RDW Std Deviation 67.0 H, RDW Coeff of Pako 17.2 H, Plt Count 84 L, MPV 8.9, Immature Gran % (Auto) 0.700, Neut % (Auto) 78.5 H, Lymph % (Auto) 14.7 L, [place] % (Auto) 5.5, Eos % (Auto) 0.3, Baso % (Auto) 0.3, Absolute Neuts (auto) 11.4 H, Absolute Lymphs (auto) 2.12, Nucleated RBC % 0, Platelet Estimate SLT DEC, Anisocytosis 1+ 10/30/21 06:15: Sodium 140, Potassium 5.3 H, Chloride 115 H, Carbon Dioxide 19.0 L, Anion Gap 6, BUN 66 H, Creatinine 2.94 H, Estim Creat Clear Calc 11.88, Est GFR (MDRD) Af Amer 20 L, Est GFR (MDRD) Non-Af 17 L, BUN/Creatinine Ratio 22.4 H , Glucose 103, Calcium 10.7 H Micro: Microbiology 10/26/21 Unknown Tissue - Leg, Left Gram Stain - Final 10/26/21 Unknown Tissue - Leg, Left Tissue Culture - Final Acinetobacter baumannii Enterococcus faecalis Corynebacterium striatum 10/26/21 Unknown Tissue - Leg, Left Anaerobic Culture - Final No anaerobic bacteria isolated. 10/22/21 Unknown Wound - Knee Gram Stain - Final 10/22/21 Unknown Wound - Knee Wound Culture - Final Morganella morganii sp morgani Corynebacterium striatum Vancomycin Resist. E. faecium Corynebacterium amycolatum 10/22/21 Unknown Wound - Knee Anaerobic Culture - Final Anaerobic cocci Bacteroides ovatus Clostridium clostridioforme 10/22/21 15:39 Blood Culture (Wb) - Right Wrist Blood Culture - Final No growth in 5 days. 10/22/21 15:25 Blood Culture (Wb) - Left Hand Blood Culture - Final No growth in 5 days. 10/22/21 16:20 Urine, Catheterized Urine Culture - Final Culture exhibits no growth. Radiography Diagnostic Testing: Radiology Impression Renal Ultrasound 10/29/21 06:50 IMPRESSION: No hydronephrosis. Collapsed urinary bladder with Griggs catheter. 2 right renal cysts. Ascites. Electronically Signed: Lyla Winn MD at 20:12 EDT , Physical Exam Const no apparent distress HEENT normocephalic Resp normal air movement Cardio regular rate GI soft to palpation and non-distended Skin Wound Narrative: Left posterior leg and popiteal area wound is stable. No active bleeding seen. No further evidence of infection. Popliteal vessels are not exposed. Dakin's dressing changed earlier this morning. Neuro moves all extremities Assessment & Plan Assessment/Plan (1) Open wound of left lower leg with complication: (2) Abscess of left lower leg: (3) Cellulitis of leg, left: (4) Skin necrosis: (5) Obesity: PLAN: Wound left posterior leg and popliteal area are clean. No active bleeding noted. Wound redressed earlier this morning with Dakin's dressing changes. Wound care upon discharge will be Dakin's moistened gauze/kerlix (moistened not wet, make sure to wring out excess) topped with super absorbers/ABDs. Daily and as needed. Since she is currently draining copious amounts of drainage, may need to change the outer dressing more frequently than the Dakin's packing. Operative culture showed Acinetobacter baumannii, Enterococcus faecalis, Corynebacterium striatum. Preoperative culture showed Morganella morganii, Vancomycin resistant enterococcus, Corynebacterium striatum, and Corynebacterium amycolatum and Anaerobic cocci, Bacteroides ovatus and Clostridium clostridioforme. She had been on Vancomycin and Zosyn. They have been changed to Linezolid and Cipro and Metronidazole. She is being managed by infectious disease. Anticipate increased metabolic demands from the wound. Encourage nutritional supplementation with protein to help the healing process. Awaiting transfer to an ECF. From our standpoint she is able to transferred when she is medically able to do so. [facility]up [facility] on a Tuesday in the next 3-4 weeks. Please have the facility arrange her appointment. They can call [phone]. If the facility has questions about her wound care please have them call [facility] at [phone] and ask to speak to Daisha Bahena CNP. Charges/Coding Procedures Integumentary [id number]: [id number] Global Visit
--- NOTE | 2021-10-30 10:35 | PN.RENAL_ITS ---
Subjective Subjective Following for MIGUE Patient confused this am, unable to answer questions. Objective Data Objective Data Vital Signs: Vital Signs Temp Pulse Resp BP Pulse Ox 97.8 F 78 18 120/70 95 10/30/21 06:22 10/30/21 07:56 10/30/21 06:22 10/30/21 06:22 10/30/21 08:03 Oxygen Flow Rate (L/min) 2 Oxygen Delivery Method Room Air Weight: 154.7 kg Body Mass Index (BMI) 60.7 Intake & Output: Intake and Output for Last 24 Hours 10/28/21 10/29/21 10/30/21 23:59 23:59 23:59 Intake Total 660.62 / 660.62 200 / 200 0 / 0 Output Total 130 / 170 150 / 150 50 / 50 Balance 530.62 / 490.62 50 / 50 -50 / -50 Lab / Micro Data Result Diagrams: 10/30/21 06:15 10/30/21 06:15 Labs: Laboratory Results - last 24 hr 10/30/21 06:15: WBC 14.5 H, RBC 2.95 L, Hgb 10.1 L, Hct 32.0 L, MCV 108.5 H, MCH 34.2 H, MCHC 31.6 L, RDW Std Deviation 67.0 H, RDW Coeff of Pako 17.2 H, Plt Count 84 L, MPV 8.9, Immature Gran % (Auto) 0.700, Neut % (Auto) 78.5 H, Lymph % (Auto) 14.7 L, Taney % (Auto) 5.5, Eos % (Auto) 0.3, Baso % (Auto) 0.3, Absolute Neuts (auto) 11.4 H, Absolute Lymphs (auto) 2.12, Nucleated RBC % 0, Platelet Estimate SLT DEC, Anisocytosis 1+ 10/30/21 06:15: Sodium 140, Potassium 5.3 H, Chloride 115 H, Carbon Dioxide 19.0 L, Anion Gap 6, BUN 66 H, Creatinine 2.94 H, Estim Creat Clear Calc 11.88, Est GFR (MDRD) Af Amer 20 L, Est GFR (MDRD) Non-Af 17 L, BUN/Creatinine Ratio 22.4 H , Glucose 103, Calcium 10.7 H Micro: Microbiology 10/26/21 Unknown Tissue - Leg, Left Gram Stain - Final 10/26/21 Unknown Tissue - Leg, Left Tissue Culture - Final Acinetobacter baumannii Enterococcus faecalis Corynebacterium striatum 10/26/21 Unknown Tissue - Leg, Left Anaerobic Culture - Final No anaerobic bacteria isolated. 10/22/21 Unknown Wound - Knee Gram Stain - Final 10/22/21 Unknown Wound - Knee Wound Culture - Final Morganella morganii sp morgani Corynebacterium striatum Vancomycin Resist. E. faecium Corynebacterium amycolatum 10/22/21 Unknown Wound - Knee Anaerobic Culture - Final Anaerobic cocci Bacteroides ovatus Clostridium clostridioforme 10/22/21 15:39 Blood Culture (Wb) - Right Wrist Blood Culture - Final No growth in 5 days. 10/22/21 15:25 Blood Culture (Wb) - Left Hand Blood Culture - Final No growth in 5 days. 10/22/21 16:20 Urine, Catheterized Urine Culture - Final Culture exhibits no growth. Radiography Diagnostic Testing: Radiology Impression Renal Ultrasound 10/29/21 06:50 IMPRESSION: No hydronephrosis. Collapsed urinary bladder with Prakash catheter. 2 right renal cysts. Ascites. Electronically Signed: Lyla Winn MD at 20:12 EDT , Physical Exam Narrative Alert to name, awake no obvious distress s1s2 no murmurs lungs clear abdomen soft no organomegaly ++ edema b/l legs, arms and hands. YAMILKA wraps to b/l legs prakash + wtih scant yellow urine in tubing Assessment & Plan Assessment/Plan (1) MIGUE (acute kidney injury): PLAN: - MIGUE prerenal likely progressing to ATN. Baseline creatinine was normal on admission. Creatinine has increased, up to 2.94mg/dL. UOP is low, however she is leaking around prakash tubing and has been incontinent of urine. She was in septic shock and required admission to ICU. Currently she is off pressors. Blood pressure values are acceptable. No contrast agents. She did receive vancomycin with borderline levels but currently she is off vancomycin and is on Zyvox. Most likely went into ischemic ATN due to septic shock. Did not respond to Lasix. Will likely run its course. Overall she has significant edema which could be related to low albumin, 1.5, suspicion of cirrhosis. Breathing looks comfortable. - K+ 5.3, added low K+ diet restrictions. SPS ordered x1 dose today - no need for IVF, will give albumin 25gm x1 today - on midodrine tid - I spoke to patient's son, Lucho via phone to update him on worsening kidney function and that patient may need BANBURY MILL OPERATOR, and he at this point does not think his mother would want dialysis, however no decision made at this time for or against dialysis. Patient is DNRCCA
[2021-10-30] MEDS: busPIRone 5 MG Tablet PO (10:50)
[2021-10-30] MEDS: Ciprofloxacin 500 MG Tablet PO (10:51)
[2021-10-30] MEDS: Midodrine HCl 5 MG Tablet 10 MG PO (10:51)
[2021-10-30] MEDS: DAKIN'S SOL HALF STRENGTH (=0.25%) 1 APPLIC TOPICAL (10:52)
[2021-10-30] MEDS: Juven (unflavored) Packet 1 PACKET PO (10:52)
[2021-10-30] MEDS: Ferrous Sulfate 325 MG Tablet PO (10:52)
[2021-10-30] MEDS: Ascorbic Acid 500 MG Tablet 250 MG PO (10:53)
[2021-10-30] MEDS: Linezolid 600 MG Tablet PO (10:53)
[2021-10-30] MEDS: Venlafaxine XR 75 MG Capsule PO (10:53)
[2021-10-30] MEDS: Menthol/Lanolin/Calamine/Znox 113 GM Tube 1 APPLIC TOPICAL (10:54)
[2021-10-30] MEDS: CHLORHEXIDINE GLUC 2% CLOTH 1 EACH TOWELETTE TOPICAL (10:58)
[2021-10-30] MEDS: oxyCODONE 5 MG Tablet 10 MG PO ×2 (11:08→16:01)
--- NOTE | 2021-10-30 12:07 | PCM.PN.HOSP ---
Subjective Subjective No significant issues overnight. She does find it challenging to stay awake to complete questioning but she is arousable. Objective Data Objective Data Vital Signs: Vital Signs Temp Pulse Resp BP Pulse Ox 97.9 F 76 18 111/54 L 93 10/30/21 10:30 10/30/21 10:30 10/30/21 10:30 10/30/21 10:30 10/30/21 10:30 Oxygen Flow Rate (L/min) 2 Oxygen Delivery Method Room Air Weight: 341 lb 0.882 oz Body Mass Index (BMI) 60.7 Intake & Output: Intake and Output for Last 24 Hours 10/29/21 10/30/21 10/31/21 03:59 03:59 03:59 Intake Total 630.42 / 630.42 200 / 200 0 / 0 Output Total 170 / 170 110 / 110 50 / 50 Balance 460.42 / 460.42 90 / 90 -50 / -50 Lab / Micro Data Result Diagrams: 10/30/21 06:15 10/30/21 06:15 Labs: Laboratory Results - last 24 hr 10/30/21 06:15: WBC 14.5 H, RBC 2.95 L, Hgb 10.1 L, Hct 32.0 L, MCV 108.5 H, MCH 34.2 H, MCHC 31.6 L, RDW Std Deviation 67.0 H, RDW Coeff of Pako 17.2 H, Plt Count 84 L, MPV 8.9, Immature Gran % (Auto) 0.700, Neut % (Auto) 78.5 H, Lymph % (Auto) 14.7 L, [place]es % (Auto) 5.5, Eos % (Auto) 0.3, Baso % (Auto) 0.3, Absolute Neuts (auto) 11.4 H, Absolute Lymphs (auto) 2.12, Nucleated RBC % 0, Platelet Estimate SLT DEC, Anisocytosis 1+ 10/30/21 06:15: Sodium 140, Potassium 5.3 H, Chloride 115 H, Carbon Dioxide 19.0 L, Anion Gap 6, BUN 66 H, Creatinine 2.94 H, Estim Creat Clear Calc 11.88, Est GFR (MDRD) Af Amer 20 L, Est GFR (MDRD) Non-Af 17 L, BUN/Creatinine Ratio 22.4 H, Glucose 103, Calcium 10.7 H Micro: Microbiology 10/26/21 Unknown Tissue - Leg, Left Gram Stain - Final 10/26/21 Unknown Tissue - Leg, Left Tissue Culture - Final Acinetobacter baumannii Enterococcus faecalis Corynebacterium striatum 10/26/21 Unknown Tissue - Leg, Left Anaerobic Culture - Final No anaerobic bacteria isolated. 10/22/21 Unknown Wound - Knee Gram Stain - Final 10/22/21 Unknown Wound - Knee Wound Culture - Final Morganella morganii sp morgani Corynebacterium striatum Vancomycin Resist. E. faecium Corynebacterium amycolatum 10/22/21 Unknown Wound - Knee Anaerobic Culture - Final Anaerobic cocci Bacteroides ovatus Clostridium clostridioforme 10/22/21 15:39 Blood Culture (Wb) - Right Wrist Blood Culture - Final No growth in 5 days. 10/22/21 15:25 Blood Culture (Wb) - Left Hand Blood Culture - Final No growth in 5 days. 10/22/21 16:20 Urine, Catheterized Urine Culture - Final Culture exhibits no growth. Radiography Diagnostic Testing: Radiology Impression Renal Ultrasound 10/29/21 06:50 IMPRESSION: No hydronephrosis. Collapsed urinary bladder with Griggs catheter. 2 right renal cysts. Ascites. Electronically Signed: Lyla Winn MD at 20:12 EDT , Physical Exam Const alert, oriented x3 and no apparent distress General Appearance: cooperative HEENT normocephalic and moist oral mucous membranes Eyes PERRL, EOMs intact bilaterally and conjunctivae normal Neck supple and no JVD Resp normal respiratory effort, no retractions, no use of accessory muscles and clear to auscultation bilaterally Auscultation: Negative for crackles, rales, rhonchi or wheezes Cardio regular rate, regular rhythm, S1 normal heart sound and S2 normal heart sound Heart Sounds: murmur GI soft to palpation, non-tender and non-distended; Negative for hepatosplenomegaly Extremity General Extremity: edema; Negative for clubbing or cyanosis Skin Skin Narrative: Left lower extremity is wrapped Neuro no focal motor deficits and no sensory deficits noted Psych Mood & Affect: flat affect Assessment & Plan Assessment/Plan (1) Abscess of left lower leg: (2) Pancytopenia: PLAN: 1. Septic shock secondary to deep popliteal space wound infection status post debridement 10/26/2021/MIGUE from ischemic ATN due to postoperative hypotension ?Antibiotics per ID, continue with Cipro no, Flagyl, Zyvox ?Culture demonstrated Terence-20 microbial infection with corynebacterium, VRE, Morganella ?We will need to continue wound care at discharge ?Appreciate nephrology assistance, son does not think that she would agree to dialysis and her renal function is worsening ?Continue with midodrine to assist with blood pressure 2. Acute hypoxic respiratory failure?Resolved 3. Pancytopenia/this ?Anemia and thrombocytopenia are at baseline, will continue to monitor ?This is related to known cirrhosis 4. HTN ?Given her hypotension and the need for midodrine, will hold her antihypertensives and likely discontinue antihypertensives on discharge 5. Depression/anxiety ?Stable ?Continue with Effexor and BuSpar DVT: Heparin Charges/Coding Visit Charges Inpatient E&M: 54249 Subs Hosp L2
--- NOTE | 2021-10-30 12:12 | PCM.PN.ID ---
Physical Exam Narrative No fever, lethargic Const Orientation / Consciousness: lethargic Resp normal air movement and clear to auscultation bilaterally Cardio regular rate and regular rhythm GI soft to palpation, non-tender and non-distended Extremity General Extremity: edema Skin Skin Narrative: leg wrapped ID ID: Route of nutrition/ use of supplements: [] Nutritional Intake: [] IV Site: [] Griggs Catheter: [] Assessment & Plan Assessment/Plan (1) Leg wound, left: PLAN: Wound cx with VRE, diphtheroids x2, and morganella. 10/26 changed vanc/josefina to linezolid/cipro/flagyl. Taken to OR 10/[address] Agee for I&D complicated by post-op hypotension. Now out of icu, off pressor but still worsening MIGUE. Adjusted cipro. Now DNR-CCA. Surg cx also with very rare MDR AcB. Has PCN allergy. Wound improving, will monitor. Will follow
[2021-10-30] MEDS: Albumin Human 25% (100 mL) 25 GM/100 ML BAG IV (14:13)
[2021-10-30] MEDS: 0.9% Saline Lock 10 ML Syringe IV (14:25)
--- NOTE | 2021-10-30 14:37 | CASEMGMT ---
Social Work Per Dr. Curry patient could be medically cleared over the weekend. Telephone call to mervin Mitchell. This social work lecturer confirmed that patient is able to return to this weekend if patient is medically cleared. Medical team updated. Green sheet placed on chart. PLAN: Paula, intermediate level of care. Mireille CORDOVA, CARMEL
[2021-10-30] MEDS: Sodium Polystyrene Sulfonate 15 GM/60 ML UDC 30 GM PO (16:01)
--- NOTE | 2021-10-30 22:36 | NURSING ---
This RN went into patient room at 2150 to assess patient and take vitals. Patient would not let RN assess or give any medications. Patient said No repeatedly and put up arms as to not allow any patient care to be done. Will notify physician of this and request instructions on how to move forward. Will continue to encourage patient to allow RN to care for her.
[2021-10-31] VITALS (13 sets, daily range): BP systolic 82–105; BP diastolic 44–78; PULSE 75–122; RESP 16–24; TEMP 35.7–36.9; O2SAT 94–98
[2021-10-31] MEDS: oxyCODONE 5 MG Tablet 10 MG PO (07:05)
[2021-10-31] MEDS: Heparin Injection (Vial) 5,000 UNIT/ML VIAL 5000 UNIT SC (07:05)
[2021-10-31] MEDS: DAKIN'S SOL HALF STRENGTH (=0.25%) 1 APPLIC TOPICAL (07:06)
--- NOTE | 2021-10-31 07:39 | NURSING ---
Changed bed linens w/ BRAKE HOLDER. Changed dressings in abdominal folds and placed new silver dressings w/ gauze over top. Removed old dressing w/ copious amounts of purulent foul-smelling drainage from left leg wound. Packed wound w/ new kerlix moistened w/ Dakin's and NS, and placed new ABDs over top and wrapped w/ Kerlix.
--- NOTE | 2021-10-31 07:41 | NURSING ---
Pt refused Flagyl this AM, took her Oxyir in applesauce and recieved her Heparin.
[2021-10-31 08:57] LABS: Absolute Lymphocyte Count 1.83 X10^3/uL (0.83-4.51); Absolute Neutrophil Count 11.1 X10^3/uL (2.0-7.7); Basophil# 0.04 X10^3/uL; Basophil% 0.3 % (0-1); Eosinophil# 0.04 X10^3/uL; Eosinophils% 0.3 % (0-5); Hematocrit 29.6 % (37-47); Hemoglobin 9.3 g/dL (12.0-15.0); Lymphocyte # 1.83 X10^3/ul (0.83-4.51); Lymphocyte % 13.2 % (19-41); Mean Corp Hgb Conc 31.4 g/dL (32-36); Mean Corpuscular Hgb 33.8 pg (27.0-32.0); Mean Corpuscular Volume 107.6 fL (81-99); Monocyte# 0.71 X10^3/uL; Monocyte% 5.1 % (0-10); NRBC Flagged by Analyzer 0 % (0-5); Neutrophil # 11.11 X10^3/uL (2.7-7.7); Neutrophil % 80.4 % (47-70); POSITIVE COUNT YES; POSITIVE MORPHOLOGY YES; Platelet Count 81 K/mm3 (150-450); RBC Distribution Width CV 17.4 % (11.6-14.6); RBC Distribution Width SD 66.3 fl (35.1-43.9); Red Blood Count 2.75 M/mm3 (4.2-5.4); White Blood Count 13.8 K/mm3 (4.4-11.0)
[2021-10-31 09:07] LABS: Differential Indicated SCAN CRITERIA MET
[2021-10-31 09:27] LABS: Anion Gap 6 (5-15); Anisocytosis 1+; BUN 80 mg/dL (7-18); BUN/Creat Ratio 20.6 RATIO (10-20); Calcium,Total 10.6 mg/dL (8.5-10.1); Chloride 118 mmol/L (98-107); Creatinine, Serum 3.88 mg/dL (0.55-1.02); EST Glomerular Filtration Rate 12 mL/min (>60); Est Glom Filt Rate - Afr Amer 15 mL/min (>60); Glucose 73 mg/dL (74-106); Platelet Estimate SLT DEC (ADEQ); Potassium 5.3 mmol/L (3.5-5.1); Sodium Level 142 mmol/L (136-145)
[2021-10-31] MEDS: Midodrine HCl 5 MG Tablet 10 MG PO (09:35)
[2021-10-31] MEDS: Ciprofloxacin 500 MG Tablet PO (09:38)
--- NOTE | 2021-10-31 15:01 | DCINST_ITS ---
Discharge Instructions Follow Up Care Test Results: Test results from this visit will be discussed in further detail at your follow-up appointment, if applicable. Discharge Plan Admission Admit Date/Time: 10/22/21 18:39 Attending Provider: Cooper Curry Primary Care Provider: Radha Sebastian NP Consulting Providers: Munir Wilson ; Nav Pitts ; Shahid Godinez ; Svetlana Harkins NP ; Santos Wahl ; Esvin Agee Discharge Orders/Prescriptions Prescriptions: New oxycodone 5 mg Tablet 10 mg PO Q4H PRN PRN (Reason: Pain Score 4-5) Qty: 0 RF: 0 Continued venlafaxine 75 MG tablet 75 mg PO DAILY RF: 0 lisinopril 20 MG tablet 20 mg PO Q3D RF: 0 cholecalciferol (vitamin D3) [Vitamin D3] 1,000 UNIT tablet 1,000 unit PO DAILY RF: 0 ascorbic acid (vitamin C) 250 MG tablet,chewable 250 mg PO DAILY RF: 0 ferrous sulfate 325 MG tablet 325 mg PO Q2D RF: 0 nystatin 100,000 unit/gram powder 1 applic TOPICAL BIDCM PRN (Reason: redness) RF: 0 acetaminophen [Tylenol] 325 mg Tablet 650 mg PO Q6H PRN PRN (Reason: Pain Score 1-10/Temp > 100.7 F) Qty: 0 RF: 0 buspirone 5 mg Tablet 5 mg PO TID RF: 0 tramadol 50 mg Tablet 50 mg PO Q6H PRN (Reason: Pain) RF: 0 Santyl 250 unit/gram Ointment 1 applic TOPICAL TID RF: 0 No Action bacitracin 500 unit/gram ointment 1 applic TOPICAL TID RF: 0 cefadroxil 500 mg Capsule 500 mg PO DAILY RF: 0 doxycycline hyclate 100 mg Tablet 100 mg PO BID RF: 0 Referrals / Follow Up: Radha Sebastian NP, SHOTWELD OPERATOR-C [Primary Care Provider] - Disposition Disposition (needs filled in before D/C Order can be placed): Hospice in Medical Facility
--- NOTE | 2021-10-31 15:04 | DS.PCM_ITS ---
Providers Date of Admission: 10/22/21 Primary Care Physician: CAROLEE Stock Consultations 10/22/21 18:57 Consult: Infectious Disease Routine Consulting Provider: Munir Wilson Reason for Consult: left popliteal deep wound infection EMERGENT Consult: No Notified: Yes Date Notified: 10/22/21 Time Notified: 18:51 Method of Notification: Verbal Consult: Onc/Wound/vault custodian Routine Comment: Reason for Consult:: left popliteal wound Consult: Plastic Surgery Routine Consulting Provider: Esvin Agee Reason for Consult: left popliteal wound EMERGENT Consult: No Notified: Yes Date Notified: 10/22/21 Time Notified: 18:50 Method of Notification: Verbal 10/26/21 17:17 Consult: Operations Lieutenant / Pulmonary Medicine Routine Consulting Provider: Pulmonary Medicine [facility] Reason for Consult: Post operative Hypotension EMERGENT Consult: No Notified: Yes Date Notified: 10/26/21 Time Notified: 16:15 Method of Notification: Verbal 10/29/21 06:41 Consult: Nephrology Routine Consulting Provider: Santos Wahl Reason for Consult: Acute Kidney Injury EMERGENT Consult: No Notified: Yes Date Notified: 10/29/21 Time Notified: 09:47 Method of Notification: Answering Service Reason For Visit: DEEP WOUND OF LFT POPLITEAL SPACE WITH INFECTION Diagnosis Discharge Diagnosis (1) Abscess of left lower leg: Status: Acute Code(s): L02.416 - Cutaneous abscess of left lower limb (2) Pancytopenia: Status: Acute Code(s): D61.818 - Other pancytopenia (3) Leg wound, left: Status: Acute Code(s): S81.802A - Unspecified open wound, left lower leg, initial encounter Medications at Discharge Home Medications cholecalciferol (vitamin D3) [Vitamin D3] 1,000 unit PO DAILY 04/15/17 lisinopril 20 mg PO Q3D 04/15/17 venlafaxine 75 mg PO DAILY 04/15/17 ascorbic acid (vitamin C) 250 mg PO DAILY 09/03/20 ferrous sulfate 325 mg PO Q2D 09/03/20 bacitracin 1 applic TOPICAL TID 10/05/21 nystatin 1 applic TOPICAL BIDCM PRN 10/05/21 acetaminophen [Tylenol] 650 mg PO Q6H PRN PRN #0 tab 10/07/21 Santyl 1 applic TOPICAL TID 10/22/21 buspirone 5 mg PO TID 10/22/21 cefadroxil 500 mg PO DAILY 10/22/21 doxycycline hyclate 100 mg PO BID 10/22/21 tramadol 50 mg PO Q6H PRN 10/22/21 oxycodone 10 mg PO Q4H PRN PRN #0 tab 10/31/21 Hospital Course Operations - (Left lower extremity I&D) Procedures 2-D Echocardiogram Summary of Care Provided Minutes Spent on Discharge: 47 Hospital Course: Per HPI: FRANCE NAM, is a 76 F who presents to the emergency room at [facility] from a local extended care facility at which she is receiving inpatient rehab services due to a nonhealing wound with purulent drainage, evidence of necrosis, and odoriferous drainage from the left popliteal space. Patient had recently been hospitalized at [facility] after sustaining a fall at her home, she was not able to care for herself and went to an extended care facility for inpatient rehab services-she was admitted to [facility] in [facility] on 10/07/2021. She had been receiving oral antibiotics for a left popliteal space deep wound. Today it did not appear that this area was healing properly and she was told she needed to be seen in the emergency room at [facility] but the patient decided she would come back to [facility] for reevaluation in the emergency room. Labs obtained in the emergency room today included a CBC which was remarkable for hemoglobin of 11.8, patient's white blood cell count was normal, patient's chemistry profile was remarkable for a BUN of 33, AST was elevated at 83, alkaline phosphatase was elevated at 118. Urinalysis was unremarkable, plastic surgery was contacted and requested a CT of the left popliteal area be obtained, the CT showed phlegmonous changes within the soft tissue of the posterior knee with tiny air bubbles visible, gangrenous changes were not totally excluded. No local well-defined abscess was identified and there was no evidence for osteomyelitis. Patient was given IV vancomycin in the emergency room, she was admitted to PCU for further care for deep wound infection of the left popliteal fossa. She will be seen by plastic surgery as well as infectious diseases. She will also be seen by the wound care nurse tomorrow. Hospital course: 1. Septic shock secondary to popliteal space wound infection status post debridement 10/26/2021/acute renal failure from ischemic ATN due to postoperative hypotension/acute hypoxic respiratory failure/pancytopenia/cirrhosis? 76-year-old female presented to the hospital from a half-way, she developed a nonhealing wound in the back of her left leg and was brought in for evaluation and treatment. She did develop septic shock due to this infection which was polymicrobial. She has been on multiple antibiotics with the assistance of ID. Her stay was complicated by needing pressor support secondary to hypotension which has led to renal failure. Unfortunately she has elected to not attempt dialysis. She is told her son multiple times that she did not want anything done which she reiterated to me today. We did have a 45-minute discussion on advance care planning and he still does not want her to undergo dialysis per her wishes. She did develop some hypotension today because she has been refusing her medications and therefore has not received midodrine for several doses. We discussed the possibility of hospice since he did not want to undergo dialysis and he also stated that he did not want her to be started back on pressor support in the ICU that this not something she would want. She is confused and is not verbalizing today and he is her POA. I did discuss the case with hospice and they felt that she would be appropriate for the inpatient unit. I discussed this with the son who felt that she would like to be hospice and wants her to just be comfortable. Plan will be to discharge to hospice today. Physical Exam Narrative Const Confused, lethargic HEENT normocephalic and moist oral mucous membranes Eyes PERRL, and conjunctivae normal Neck supple and no JVD Resp normal respiratory effort, no retractions, no use of accessory muscles and clear to auscultation bilaterally Auscultation: Negative for crackles, rales, rhonchi or wheezes Cardio regular rate, regular rhythm, S1 normal heart sound and S2 normal heart sound Heart Sounds: murmur GI soft to palpation, non-tender and non-distended; Negative for hepatosplenomegaly Extremity General Extremity: edema; Negative for clubbing or cyanosis Skin Skin Narrative: Left lower extremity is wrapped Neuro no focal motor deficits and no sensory deficits noted Psych Mood & Affect: Not alert, confused. She will arouse to voice but does not stay awake Weight / BMI Weight Weight: 343 lb 14.738 oz Body Mass Index (BMI) 60.7 ABG / Lab / Microbiology Data Result Diagrams: 10/31/21 08:40 10/31/21 08:40 Laboratory: Laboratory Results - last 24 hr 10/31/21 08:40: WBC 13.8 H, RBC 2.75 L, Hgb 9.3 L, Hct 29.6 L, MCV 107.6 H, MCH 33.8 H, MCHC 31.4 L, RDW Std Deviation 66.3 H, RDW Coeff of Pako 17.4 H, Plt Count 81 L, MPV 9.0, Immature Gran % (Auto) 0.700, Neut % (Auto) 80.4 H, Lymph % (Auto) 13.2 L, [place] % (Auto) 5.1, Eos % (Auto) 0.3, Baso % (Auto) 0.3, Absolute Neuts (auto) 11.1 H, Absolute Lymphs (auto) 1.83, Nucleated RBC % 0, Platelet Estimate SLT DEC, Anisocytosis 1+ 10/31/21 08:40: Sodium 142, Potassium 5.3 H, Chloride 118 H, Carbon Dioxide 18.0 L, Anion Gap 6, BUN 80 H, Creatinine 3.88 H, Estim Creat Clear Calc 9.00, Est GFR (MDRD) Af Amer 15 L, Est GFR (MDRD) Non-Af 12 L, BUN/Creatinine Ratio 20.6 H , Glucose 73 L, Calcium 10.6 H Microbiology: Microbiology 10/26/21 Unknown Tissue - Leg, Left Gram Stain - Final 10/26/21 Unknown Tissue - Leg, Left Tissue Culture - Final Acinetobacter baumannii Enterococcus faecalis Corynebacterium striatum 10/26/21 Unknown Tissue - Leg, Left Anaerobic Culture - Final No anaerobic bacteria isolated. 10/22/21 Unknown Wound - Knee Gram Stain - Final 10/22/21 Unknown Wound - Knee Wound Culture - Final Morganella morganii sp morgani Corynebacterium striatum Vancomycin Resist. E. faecium Corynebacterium amycolatum 10/22/21 Unknown Wound - Knee Anaerobic Culture - Final Anaerobic cocci Bacteroides ovatus Clostridium clostridioforme 10/22/21 15:39 Blood Culture (Wb) - Right Wrist Blood Culture - Final No growth in 5 days. 10/22/21 15:25 Blood Culture (Wb) - Left Hand Blood Culture - Final No growth in 5 days. 10/22/21 16:20 Urine, Catheterized Urine Culture - Final Culture exhibits no growth. Meaningful Use Info Meaningful Use Diagnoses (Choose all that apply): None applicable Discharge Plan Admission Admit Date/Time: 10/22/21 18:39 Attending Provider: Cooper Curry Primary Care Provider: Radha Sebastian NP Consulting Providers: Munir Wilson ; Nav Pitts ; Shahid Godinez ; Svetlana Harkins NP ; Santos Wahl ; Esvin Agee Discharge Orders/Prescriptions Prescriptions: New oxycodone 5 mg Tablet 10 mg PO Q4H PRN PRN (Reason: Pain Score 4-5) Qty: 0 RF: 0 Continued venlafaxine 75 MG tablet 75 mg PO DAILY RF: 0 lisinopril 20 MG tablet 20 mg PO Q3D RF: 0 cholecalciferol (vitamin D3) [Vitamin D3] 1,000 UNIT tablet 1,000 unit PO DAILY RF: 0 ascorbic acid (vitamin C) 250 MG tablet,chewable 250 mg PO DAILY RF: 0 ferrous sulfate 325 MG tablet 325 mg PO Q2D RF: 0 nystatin 100,000 unit/gram powder 1 applic TOPICAL BIDCM PRN (Reason: redness) RF: 0 acetaminophen [Tylenol] 325 mg Tablet 650 mg PO Q6H PRN PRN (Reason: Pain Score 1-10/Temp > 100.7 F) Qty: 0 RF: 0 buspirone 5 mg Tablet 5 mg PO TID RF: 0 tramadol 50 mg Tablet 50 mg PO Q6H PRN (Reason: Pain) RF: 0 Santyl 250 unit/gram Ointment 1 applic TOPICAL TID RF: 0 No Action bacitracin 500 unit/gram ointment 1 applic TOPICAL TID RF: 0 cefadroxil 500 mg Capsule 500 mg PO DAILY RF: 0 doxycycline hyclate 100 mg Tablet 100 mg PO BID RF: 0 Referrals / Follow Up: Radha Sebastian NP, NEEDLE PUNCH OPERATOR-C [Primary Care Provider] - Disposition Disposition (needs filled in before D/C Order can be placed): Hospice in Medical Facility Charges/Coding Visit Charges Inpatient E&M: 99448 Disch Hosp
--- NOTE | 2021-10-31 15:07 | CASEMGMT ---
Addendum entered by Alana Alfonso 10/31/21 16:42: BERNARDINO faxed referral to [facility] agency. Araceli, public relations player advised she would update hospitalist regarding patient going to [facility] on Tuesday. BERNARDINO called Paula and spoke to Jewels, the unit nurse. Advised that the plan, as of today, is for patient to go to [facility] at Hospice on Tuesday. Plan: Hospice Alana DELUCA Original Note: BERNARDINO Note Referral Source: public relations player Araceli Referral Reason: Hospice Per Araceli patient's MD spoke to Dr. Keyes and made referral to Hospice. BERNARDINO paged debt collection specialist Hospice worker, Gretchen. Gretchen said that she is aware of patient. Gretchen said that if patient needs a bariatric bed that they can't get that until Tuesday. Gretchen said that the plan is for patient to go to [facility] on Tuesday after Hospice gets bariatric bed. Gretchen requested that this program writer fax paperwork for referral to [place] [facility]. Plan: Hospice Alana LARSEN
--- NOTE | 2021-10-31 15:52 | PN.HOSP_ITS ---
Subjective Subjective Not alert refuses all of her medications Objective Data Objective Data Vital Signs: Vital Signs Temp Pulse Resp BP Pulse Ox 98.2 F 118 H 20 H 92/47 L 96 10/31/21 13:08 10/31/21 15:06 10/31/21 13:08 10/31/21 13:08 10/31/21 13:08 Oxygen Flow Rate (L/min) 2 Oxygen Delivery Method Room Air Weight: 343 lb 14.738 oz Body Mass Index (BMI) 60.7 Intake & Output: Intake and Output for Last 24 Hours 10/30/21 10/31/21 11/01/21 03:59 03:59 03:59 Intake Total 200 / 200 100 / 100 0 / 0 Output Total 110 / 110 75 / 75 30 / 30 Balance 90 / 90 / -30 / 30 Lab / Micro Data Result Diagrams: 10/31/21 08:40 10/31/21 08:40 Labs: Laboratory Results - last 24 hr 10/31/21 08:40: WBC 13.8 H, RBC 2.75 L, Hgb 9.3 L, Hct 29.6 L, MCV 107.6 H, MCH 33.8 H, MCHC 31.4 L, RDW Std Deviation 66.3 H, RDW Coeff of Pako 17.4 H, Plt Count 81 L, MPV 9.0, Immature Gran % (Auto) 0.700, Neut % (Auto) 80.4 H, Lymph % (Auto) 13.2 L, Taylor % (Auto) 5.1, Eos % (Auto) 0.3, Baso % (Auto) 0.3, Absolute Neuts (auto) 11.1 H, Absolute Lymphs (auto) 1.83, Nucleated RBC % 0, Platelet Estimate SLT DEC, Anisocytosis 1+ 10/31/21 08:40: Sodium 142, Potassium 5.3 H, Chloride 118 H, Carbon Dioxide 18.0 L, Anion Gap 6, BUN 80 H, Creatinine 3.88 H, Estim Creat Clear Calc 9.00, Est GFR (MDRD) Af Amer 15 L, Est GFR (MDRD) Non-Af 12 L, BUN/Creatinine Ratio 20.6 H , Glucose 73 L, Calcium 10.6 H Micro: Microbiology 10/26/21 Unknown Tissue - Leg, Left Gram Stain - Final 10/26/21 Unknown Tissue - Leg, Left Tissue Culture - Final Acinetobacter baumannii Enterococcus faecalis Corynebacterium striatum 10/26/21 Unknown Tissue - Leg, Left Anaerobic Culture - Final No anaerobic bacteria isolated. 10/22/21 Unknown Wound - Knee Gram Stain - Final 10/22/21 Unknown Wound - Knee Wound Culture - Final Morganella morganii sp morgani Corynebacterium striatum Vancomycin Resist. E. faecium Corynebacterium amycolatum 10/22/21 Unknown Wound - Knee Anaerobic Culture - Final Anaerobic cocci Bacteroides ovatus Clostridium clostridioforme 10/22/21 15:39 Blood Culture (Wb) - Right Wrist Blood Culture - Final No growth in 5 days. 10/22/21 15:25 Blood Culture (Wb) - Left Hand Blood Culture - Final No growth in 5 days. 10/22/21 16:20 Urine, Catheterized Urine Culture - Final Culture exhibits no growth. Physical Exam Narrative Const Confused, lethargic HEENT normocephalic and moist oral mucous membranes Eyes PERRL, and conjunctivae normal Neck supple and no JVD Resp normal respiratory effort, no retractions, no use of accessory muscles and clear to auscultation bilaterally Auscultation: Negative for crackles, rales, rhonchi or wheezes Cardio regular rate, regular rhythm, S1 normal heart sound and S2 normal heart sound Heart Sounds: murmur GI soft to palpation, non-tender and non-distended; Negative for hepatosplenomegaly Extremity General Extremity: edema; Negative for clubbing or cyanosis Skin Skin Narrative: Left lower extremity is wrapped Neuro no focal motor deficits and no sensory deficits noted Psych Mood & Affect: Not alert, confused. She will arouse to voice but does not stay awake Assessment & Plan Assessment/Plan (1) Abscess of left lower leg: (2) Pancytopenia: (3) Leg wound, left: PLAN: 1. Septic shock secondary to deep popliteal space wound infection status post debridement 10/26/2021/MIGUE from ischemic ATN due to postoperative hypotension ?Her son would like to proceed with hospice, had extensive discussion with him today over 45 minutes for advance care planning. Unfortunately hospice does not have a bariatric bed until Tuesday so we will change her CODE STATUS to DNR CC and will continue with noninvasive treatments including her oral antibiotics as long as she is going to take them but will not transition to IV ?Antibiotics per ID, continue with Cipro no, Flagyl, Zyvox ?Culture demonstrated polymicrobial infection with corynebacterium, VRE, Morg anella ?Does not want dialysis and son concurs ?Continue with midodrine to assist with blood pressure 2. Acute hypoxic respiratory failure?Resolved 3. Pancytopenia/this ?Anemia and thrombocytopenia are at baseline, will continue to monitor ?This is related to known cirrhosis 4. HTN ?Given her hypotension and the need for midodrine, will hold her antihypertensives and likely discontinue antihypertensives on discharge 5. Depression/anxiety ?Stable ?Continue with Effexor and BuSpar DVT: Heparin Charges/Coding Visit Charges Inpatient E&M: 95100 Subs Hosp L2 Procedures Hospitalists Procedures: 89582 Advncd Care Plan 30 Min
--- NOTE | 2021-10-31 17:00 | NURSING ---
Son Lucho called and notified of [facility] not having bariatric bed available until Tuesday.
--- NOTE | 2021-10-31 18:57 | PCM.PN.BLA ---
Progress Note Chart was reviewed. The patient has been made comfort care only, and she and her family does not wish to pursue dialysis. Therefore, comfort care only status and hospice is appropriate. Nephrology will sign off. Elie Singh MD.
[2021-11-01 02:00] VITALS: BP 51/29; PULSE 85; RESP 24; TEMP 35.7; O2SAT 96
[2021-11-01 03:49] VITALS: BP 67/11; PULSE 99; RESP 28; TEMP 35.7; O2SAT 65
--- NOTE | 2021-11-01 04:55 | NURSING ---
This RN in room with pt due to pt's respiratory status. Pt began breathing agonally. This RN stayed at pt bed side, comfort care provided. Multiple attempts to contact son to notify of patient condition, no answer. Pt bradycardic, telemetry alerted asystole, absent HR verified by this RN and Christy Mcnally RN x1 minute. Time of 04:30. See packet paperwork.
--- NOTE | 2021-11-01 05:15 | PCM.PN.BLA ---
Progress Note Notified by nurse that patient on 11/01/2021 at 0430. Nurse report that patient's was confirmed by 2 nurses.
--- NOTE | 2021-11-01 07:07 | EXP.PCM_ITS ---
Preliminary Cause of Preliminary Cause of Preliminary Cause of : Septic Shock from deep popliteal abscess Acute renal failure from ATN Principle Diagnosis Problem List: Active and Suspected Problems (Updated 10/29/21 @ 10:[address] Santos Wahl MD) MIGUE (acute kidney injury) (Acute) Severe sepsis (Acute) Pancytopenia (Acute) Skin necrosis (Acute) infected necrotic wound in left popliteal area with extension proximally into the distal thigh and distally into the proximal leg Abscess of left lower leg (Acute) infected necrotic wound in left popliteal area with extension proximally into the distal thigh and distally into the proximal leg Cellulitis of leg, left (Acute) infected necrotic wound in left popliteal area with extension proximally into the distal thigh and distally into the proximal leg Open wound of left lower leg with complication (Acute) infected necrotic wound in left popliteal area with extension proximally into the distal thigh and distally into the proximal leg Leg wound, left (Acute) Hospital Course 76-year-old female presented to the hospital from a long term, she developed a nonhealing wound in the back of her left leg and was brought in for evaluation and treatment. She did develop septic shock due to this infection which was polymicrobial. She has been on multiple antibiotics with the assistance of ID. Her stay was complicated by needing pressor support secondary to hypotension which has led to renal failure. Unfortunately she has elected to not attempt dialysis. She is told her son multiple times that she did not want anything done which she reiterated to me today. We did have a 45-minute discussion on advance care planning and he still does not want her to undergo dialysis per her wishes. She did develop some hypotension today because she has been refusing her medications and therefore has not received midodrine for several doses. We discussed the possibility of hospice since he did not want to undergo dialysis and he also stated that he did not want her to be started back on pressor support in the ICU that this not something she would want. She is confused and is not verbalizing today and he is her POA. I did discuss the case with hospice and they felt that she would be appropriate for the inpatient unit. I discussed this with the son who felt that she would like to be hospice and wants her to just be comfortable. Plan was for discharge to hospice however they did not have a bariatric bed until Tuesday so she kept in the hospital and was made comfortable. She was started on some IV morphine for any type of pain since she was refusing to take any oral pills. Overnight she became more and more hypotensive, family was notified and she on 11/01/2021 at 0430
== END 2021-11-01 07:25 | DRG 853 ==
LOC: ED 16:51 → PCU 17:23 → ICU 10-26 16:43 → PCU 10-29 15:22
PROVIDERS: Anesthesiology; Internal Medicine; Internal Medicine Critical Care Medicine; Internal Medicine Infectious Disease; Surgery; Admitting Provider Internal Medicine; Emergency Provider Emergency Medicine; PCP Nurse Practitioner; Visit Provider Family Medicine
PROC: 0JBP0ZZ Excision of Left Lower Leg Subcutaneous Tissue and Fascia, Open Approach (ICD-10-PCS; principal; 2021-10-26 12:50)
DX: A41.9 Sepsis, unspecified organism (principal); J96.01 Acute respiratory failure with hypoxia; N17.0 Acute kidney failure with tubular necrosis; R65.21 Severe sepsis with septic shock; D61.818 Other pancytopenia; I96 Gangrene, not elsewhere classified; Z68.44 Body mass index [BMI] 60.0-69.9, adult; L02.416 Cutaneous abscess of left lower limb; L03.116 Cellulitis of left lower limb; K74.60 Unspecified cirrhosis of liver; F31.9 Bipolar disorder, unspecified; E66.01 Morbid (severe) obesity due to excess calories; M06.9 Rheumatoid arthritis, unspecified; B37.2 Candidiasis of skin and nail; I10 Essential (primary) hypertension; G47.33 Obstructive sleep apnea (adult) (pediatric); F41.9 Anxiety disorder, unspecified; B95.2 Enterococcus as the cause of diseases classified elsewhere; I95.81 Postprocedural hypotension; E87.5 Hyperkalemia; B96.89 Other specified bacterial agents as the cause of diseases classified elsewhere; B96.4 Proteus (mirabilis) (morganii) as the cause of diseases classified elsewhere; R53.81 Other malaise; Z66 Do not resuscitate; Z91.19 Patient's noncompliance with other medical treatment and regimen; Z79.01 Long term (current) use of anticoagulants; Z79.899 Other long term (current) drug therapy
CPT/HCPCS: 36415; 36569; 71045; 73560; 73590; 73700; 76770; 80048; 80053; 80202; 81001; 82565; 82570; 83605; 83735; 84100; 84300; 84443; 84540; 85025; 85610; 85730; 86850; 86900; 86901; 87040; 87070; 87075; 87077; 87086; 87176; 87186; 87205; 88304; 88305; 93005; 93308; 97110; 97163; 97166; 97530; 97535; 97802; 97803; 99251; 99285; J2185; J7030; J7040; J7050; P9047; Q9957; A4216; G0463; J1940; J2405